=== PATIENT | female | born 1950 | race Caucasian/White ===

== ENCOUNTER 2024-07-23 10:00 | Outpatient (OUT) | payer MEDICARE, OTHER, SELFPAY ==
--- NOTE | 2024-07-23 | CONS_ITS ---
PROCEDURE DATE: 07/23/2024 PROCEDURE: Trigger point injection left gluteus medius. PREOPERATIVE DIAGNOSIS: Pain secondary to myalgia left gluteus medius muscle, left L5 radiculopathy. POSTOPERATIVE DIAGNOSIS: Pain secondary to myalgia left gluteus medius muscle, left L5 radiculopathy. SOLUTION USED FOR INJECTION: 2 mL of 2% lidocaine, 2 mL of 0.25% Marcaine and 10 mg of Kenalog, total of 5 mL, and 5 mL used for the injection. IMMEDIATE COMPLICATIONS: None. PROCEDURE: After informed consent was obtained, patient placed in prone position. Skin overlying the area was prepped with alcohol. A 25 gauge, 1 ?? needle was inserted into the substance of the left gluteus medius muscle and advanced until a twitch response was encountered, at which point we injected 5 mL of solution in divided doses. Patient reports a dramatic reduction in pain symptoms post procedurally. MARIA E
--- NOTE | 2024-07-23 | CONS_ITS ---
CONSULTATION DATE: 07/23/2024 TO: Sharmaine Fletcher D.O. CHIEF COMPLAINT: Includes left sided buttock pain, leg pain. HISTORY OF PRESENT ILLNESS: Review of systems, past medical/surgical history were obtained and documented on the health questionnaire and is available upon request. She is a 74-year-old female who reports having had many years of lower back pain, left leg pain; however, over the last six months, she has had dramatic increase in her pain symptoms, rating it at least 5-7/10, sharp in character, which seems to increase with activities such as standing, walking, prolonged sitting, as well as with transitioning maneuvers. She feels most comfortable in the semi-recumbent position. She denies any change in bowel and bladder habits but reports some progressive tingling and numbness of the lower extremity. She has tried Aleve for at least the last six months, which offered her minimal to no relief. She has undergone activity modification also, which offered her very little relief. She has undergone what appears to be knee injection, which improved her knee pain, but failed to improve her lower back pain. EXAMINATION: Notable for patient having hypoesthesia along the left L5 dermatome, weakness of the left EHL. Straight leg raise is positive at approximately 90 degrees. She has a depressed Achilles reflex. She has no signs consistent with myelopathy involving the lower extremities. She has a fair amount of myofascial spasm involving the lumbar paravertebral muscles, including bilaterally, as well as mainly her left gluteus medius muscle is exquisitely tender. IMPRESSION: Our impression is patient with chronic pain secondary to left L5 radicular process with myalgia and spasm of the left gluteus medius muscle. RECOMMENDATIONS: I have recommended she undergo aquatic therapy, lumbosacral MRI, lumbar spine films. Placed her on baclofen 10 mg pills, half to one pill at bedtime, for her myofascial spasm. I will hold off on adding a membrane stabilizer for the time being. Will consider this after review of her MRI. Of note, status post her left gluteus medius trigger point injection, she reports a dramatic reduction in her pain symptoms; however, she continues to have left sided knee pain. As part of providing excellent, safe, comprehensive care, the following was completed at our patient's visit: 1. A medication reconciliation and review to ensure accurate knowledge of current/active medications, including asking our patients to inform us about any [id number] medications or herbal remedies/nutritional supplements/alternative remedies. 2. A review to specifically ensure our patients have had annual screening for: elevated body mass index (BMI, see intake chart for exact total), tobacco use, screening for depression, and screening for unhealthy alcohol use. When screening is concerning, patients are provided with education and the specific recommendation to discuss the concerning health issue and treatment options with their primary care provider. MARIA E
== END 2024-07-23 10:01 | disposition home or self-care (01) ==
PROVIDERS: PCP Internal Medicine; Visit Provider Anesthesiology Pain Medicine
DX: M54.50 Low back pain, unspecified (principal); M47.26 Other spondylosis with radiculopathy, lumbar region; M62.838 Other muscle spasm; M79.18 Myalgia, other site
CPT/HCPCS: 20552; 72100; J0665; J3301

== ENCOUNTER 2024-07-23 11:28 | Outpatient (OUT) | payer MEDICARE, OTHER, SELFPAY ==
--- NOTE | 2024-07-23 11:47 | XR_ITS ---
The [address] [address] Patient Name: SARAH JIMENEZ MRN: [id number] date: 1950 Sex: F Assigned Patient Location: [facility] Current Patient Location: Accession/Order Number: [id number] Exam Date: 07/23/2024 11:50 Report Date: 07/24/2024 07:44 At the request of: WES FERGUSON Procedure: XR lumbar spine 2-3V EXAMINATION: XR lumbar spine 2-3V HISTORY: Lumbar Radiculopathy, Lumbago COMPARISON: No relevant comparison available. FINDINGS: BONES: Rotatory dextrocurvature centered at the T12 level. Moderate diffuse spondylosis and facet osteoarthropathy DISC SPACES: Moderate multilevel disc space narrowing with endplate sclerosis most significant at L5-S1 PARASPINOUS: Negative. No paraspinous abnormality is seen. OTHER: Vascular calcifications XR/XR lumbar spine 2-3V IMPRESSION: Moderate degenerative change Electronically authenticated by: TL JORDAN Date: 07/24/2024 07:44
== END 2024-07-23 11:29 | disposition home or self-care (01) ==
LOC: RAD 11:30
PROVIDERS: PCP Internal Medicine; Visit Provider Anesthesiology Pain Medicine
DX: M54.50 Low back pain, unspecified (principal); M47.26 Other spondylosis with radiculopathy, lumbar region
CPT/HCPCS: 72100

== ENCOUNTER 2024-08-01 14:26 | Outpatient (OUT) | payer MEDICARE, OTHER, SELFPAY ==
--- NOTE | 2024-08-01 14:36 | MR_ITS ---
[address] [address] Patient Name: SARAH JIMENEZ MRN: [id number] date: 1950 Sex: F Assigned Patient Location: MRI Current Patient Location: MRI Accession/Order Number: [id number] Exam Date: 08/01/2024 14:47 Report Date: 08/02/2024 14:51 At the request of: WES FERGUSON Procedure: MR lumbar spine wo con MRI OF LUMBAR SPINE WITHOUT CONTRAST, 08/01/2024. HISTORY: Chronic low back pain with left leg pain. Radiculopathy. COMPARISON: None. TECHNIQUE: Multiplanar, multisequence MRI imaging of the lumbar spine without contrast. FINDINGS: Alignment normal. No spondylolysis or spondylolisthesis. Signal in the bone marrow spaces is normal. No bone marrow edema or suspicious osseous lesion. L5-S1, severe degenerative disc disease with severe disc space narrowing. Disc osteophyte complex at this level results in mild central canal stenosis. There is severe right lateral recess stenosis. Disc space narrowing and osteophytes result in severe bilateral foraminal narrowing. L4-L5, moderate degenerative disc disease most prominent on the right side of the disc space. Diffuse disc bulge. No central spinal canal stenosis. There is moderate right foraminal narrowing. No foraminal narrowing on the left. L3-L4, severe degenerative disc disease most severe on the left side of the disc space. Disc bulge mildly effaces the thecal sac without spinal stenosis. Disc bulge and osteophyte complex on the left results in moderate left foraminal narrowing. Mild right foraminal narrowing. L2-L3, mild degenerative disc disease. No spinal stenosis. No foraminal narrowing. L1-L2, moderate degenerative disc disease. Diffuse disc bulge. No spinal stenosis or foraminal narrowing. No abnormal signal in the conus medullaris. No paraspinal mass. MR/MR lumbar spine wo con IMPRESSION: 1. No acute compression fracture. 2. Multilevel degenerative disc disease most severe at L5-S1. 3. At L5-S1, a disc osteophyte complex results in mild central canal stenosis with severe right lateral recess stenosis. There is severe bilateral foraminal narrowing. 4. Foraminal narrowing is noted at additional levels as described above. Electronically authenticated by: CORINNE PIÑA Date: 08/02/2024 14:51
--- OUTSIDE RECORDS SUMMARY | 2024-08-01 14:50 | XMS_ITS | CCD ---
Author Organization [facility] Informat ion Partnership [facility] Care Team Providers Care [employer] Name Role Phone JAZMIN ANTONIO Admitting Unavailable JAZMIN ANTONIO Consulting Unavailable JAZMIN ANTONIO Attending Unavailable NIDA SEXTON Primary Care Unavailable TL JORDAN V Consulting Unavailable Carissa Dias Unavailable DO Sharmaine Fletcher Primary Care Provider DO Sharmaine Fletcher Attending Provider NADER Dias Attending Provider MD Jazmin Antonio Attending Provider SHALONDA Alvarado Attending Provider DO Sharmaine Fletcher Primary Care Provider DO Delfino Goncalves Emergency Provider MD Christiano Murillo Attending Provider NADER Dias Attending Provider MD Scott Sellers Attending Provider Zeus Dolan Unavailable MD Scott Sellers Admit Provider Scott Sellers Unavailable SHARMAINE FLETCHER Primary Care Physician DO Sharmaine Fletcher Primary Care Provider MD Zeus Dolan Attending Provider NADER Dias Attending Provider Damian-Warsaw, DO Sharmaine Primary Care Provider [phone] Damian-Warsaw, DO Sharmaine Attending Provider [phone] NADER Dias Attending Provider Damian-Warsaw DO, Sharmaine D Unavailable Alvino URBINA, Dax Lopes Unavailable Zunilda URBINA, Jazmin Barrera Unavailable Scott Sellers MD Unavailable Damian-Warsaw DO, Sharmaine D Primary Care Provider SHALONDA ABRAHAM Attending Unavailab le Damian-Warsaw, DO Sharmaine Primary Care Provider MD Scott Sellers Attending Provider MD Meme Montelongo Emergency Provider DO Marvin Iglesias Admit Provider [phone] DO Amalia Iglesiasopher Attending Provider [phone] MD Julian Diaz Other Provider [phone] MD Kameron Pires Attending Provider ESTELA HANNAH Attending Unavailable GARCIA HERNDON Referring Unavailable DAMIAN-EMERY, SHARMAINE D Attending Unavailab le DAMIAN-EMERY, SHARMAINE D Referring Unavailab le DAMIAN-EMERY, SHARMAINE D Attending Unavailab le DAMIAN-EMERY, SHARMAINE D Referring Unavailab le DAMIAN-EMERY, SHARMAINE D Attending Unavailab le Damian-Warsaw, Sharmaine Primary Care Unavailable Carissa Dias Attending Unavailable Carissa Dias Admitting Unavailable Damian-Warsaw, Sharmaine Primary Care Unavailable Scott Sellers Attending Unavailable Scott Sellers Admitting Unavailable Damian-Warsaw, Sharmaine Primary Care Unavailable Julian Diaz Consulting Unavailable Marvin Iglesias Admitting Unavailabl e Pranay, Kameron Attending Unavailable Sharmaine Fletcher Admitting Unavailable Sharmaine Fletcher Attending Unavailable Sharmaine Fletcher Primary Care Unavailable Medications Current Medications Medication Drug Class(es) Dates Sig (Normalized) Sig (Original) acetaminophen 500 mg oral tablet (9 sources) Start: 12-14-2022 take 1000 mg by mouth twice daily Acetaminophen Active 1000 MG PO Twice daily December 14, 2022 1:00am Start: 12-14-2022 Acetaminophen (Tylenol Ex Str Arthritis Pain) 500 mg Tablet Active 1000 MG PO Twice daily December 14, 2022 12:00am amLODIPine 5 mg oral tablet (20 sources) Dihydropyridine Calcium Channel Giovani Start: 02-08-2021 take 5 mg by mouth once daily Amlodipine Active 5 MG PO Daily February 08, 2021 12:00am aspirin 81 mg chewable tablet (20 sources) Platelet Aggregation Inhibitor, Nonsteroidal Anti-inflammatory Drug Start: 02-08-2021 take 1 tablet by mouth once daily Aspirin (Children's Aspirin) 81 mg Tablet,Chewable Active 81 MG PO Daily February 08, 2021 12:00am take 1 tablet by mouth once gian y Aspirin 81 81 MG 1 tablet Orally Once a day Active atorvastatin 80 mg oral tablet (20 sources) HMG-CoA Reductase Inhibitor Start: 02-08-2021 take 80 mg by mouth once daily in the evening Atorvastatin Active 80 MG PO Every evening February 08, 2021 12:00am cholecalciferol 0.025 mg chewable tablet (9 sources) Vitamin D Start: 12-14-2022 take 1 tablet by mouth once daily Cholecalciferol (Vitamin D3) (Vitamin D3) 25 mcg (1,000 unit) Tablet,Chewable Active 25 MCG PO Daily December 14, 2022 1:00am clopidogrel 75 mg oral tablet (20 sources) [id number] Platelet Inhibitor Start: 05-06-2024 take 75 mg by mouth once daily Clopidogrel Active 75 MG PO Daily 90 90 May 06, 2024 12:00am Start: 12-05-2022 End: 05-04-2024 take 75 mg by mouth once daily Clopidogrel Discontinue d 75 MG PO Daily December 14, 2022 1:00am May 04, 2024 3:56pm Start: 02-18-2021 take 1 tablet by beverley th every twenty-four hours Clopidogrel Bisulfate 75 MG 1 tablet Orally Once a day for 30 day(s) Jan, Not-Taking Plavix Active escitalopram 10 mg oral tablet (20 sources) Serotonin Reuptake Inhibitor Start: 02-07-2021 take 10 mg by mouth once daily Escitalopram Oxalate Active 10 MG PO Daily February 07, 2021 12:00am Start: 12-12-2019 escitalopram O ral, Daily, Refills(s) 0 Start Date: 12/12/19 Status: Ordered estradiol 0.1 mg/ml vaginal cream (13 sources) Estrogen Start: 03-28-2024 estradiol 0.1 mg/g Vag Crm 1 gram, Vaginal, MonFri, 42.5 gram, Refill(s) 6, Apply 1 gram 2x/ week and rub some around the urethra., [employer] #14, 157, cm, 03/28/24 11:07:00 EDT, Height/Length Dosing, 68.6, kg, 03/28/24 11:07:00 EDT, Weight Dosing Start Date: 03/28/24 Status: Ordered Start: 12-13-2021 estradiol 0.1 mg/g Vag Crm 1 gram, Vaginal, MonFri, 42.5 gram, Refill(s) 6, Apply 1 gram 2x/ week and rub some around the urethra., [employer] #14, 157, cm, 12/13/21 10:56:00 EST, Height/Length Dosing, 73.5, kg, 12/13/21 10:56:00 EST, Weight Dosing Start Date: 12/13/21 Status: Ordered estradiol (Estra ce) 0.1 MG/GM vaginal cream Insert 1 g into the vagina 2 (two) times a week. 0 Active Estradiol 0.1 MG /GM Administer as directed Vaginally twice a week on Monday and Monday Active Estradiol 0.1 MG /GM Administer as directed Vaginally twice a week on Monday and Monday Active hydroCHLOROthiazide 25 mg oral tablet (1 source) Thiazide Diuretic Start: 05-06-2024 take 25 mg by mouth once daily Hydrochlorothiazide Active 25 MG PO Daily 60 60 May 06, 2024 12:00am 24 hr metoprolol succinate 100 mg extended release oral tablet (20 sources) beta-Adrenerg ic Giovani Start: 02-07-2021 take 100 mg by mouth once daily Metoprolol Succinate Active 100 MG PO Daily February 07, 2021 12:00am Start: 12-12-2019 take 1 mg by mouth once daily metoprolol 25 mg ER Tab mg tab(s), Oral, Daily, Refills(s) 0 Start Date: 12/12/19 Status: Ordered Misc Natural Products (Osteo Bi-Flex Triple Strength) tablet (1 source) take 1 tablet by mouth once daily Misc Natural Products (Osteo Bi-Flex Triple Strength) tablet Take 1 tablet by mouth 1 (one) time each day at the same time. 0 Active Ofzztdbi-Mgy-Fyjd-Fa-Lut ein (Multivitamin Women 50 Plus) 8 mg iron-400 mcg-300 mcg Tablet (3 sources) Start: 12-14-2022 take 1 tablet by mouth once daily Igtmhlnv-Hki-Iwnr-Fa-Halima tein (Multivitamin Women 50 Plus) 8 mg iron-400 mcg-300 mcg Tablet Active 1 TAB PO Daily December 14, 2022 1:00am Start: 12-14-2022 take 1 tablet by beverley th once daily Uoeccpqh-Inv-Udht-Fa-Lutein (Multivitami n Women 50 Plus) 8 mg iron-400 mcg-300 mcg Tablet Active 1 TAB PO Daily December 14, 2022 12:00am Woegmuhf-Qsr-Jtkn-Fa-Vit K-Lut (Multivitamin Women 50 Plus) 8 mg iron-400 mcg-300 mcg Tablet (6 sources) Start: 12-14-2022 take 1 tablet by mouth once daily Jmuxagwq-Awe-Jkic-Fa-Vit K-Lut (Multivitamin Women 50 Plus) 8 mg iron-400 mcg-300 mcg Tablet Active 1 TAB PO Daily December 14, 2022 1:00am Start: 12-14-2022 take 1 tablet by beverley th once daily Wxylgnge-Wcn-Rygd-Fa-Vit K-Lut (Multivitamin Women 50 Plus) 8 mg iron-400 mcg-300 mcg Tablet Active 1 TAB PO Daily December 14, 2022 12:00am naproxen 500 mg delayed release oral tablet (20 sources) Nonsteroidal Anti-inflammatory Drug Start: 05-12-2023 take 1 tablet by mouth once as needed naproxen (EC Naprosyn) 500 MG EC tablet Indications: Arthritis of left knee 1 tablet Orally once or twice a day as needed for 90 days 180 tablet 3 05/12/2023 Active Start: 02-07-2021 End: 02-08-2021 take 500 mg by mouth once daily Naproxen Discontinued 500 MG PO Daily February 07, 2021 12:00am February 08, 2021 3:41pm Start: 12-12-2019 naproxen Oral, Refills(s) 0 Start Date: 12/12/19 Status: Ordered take 1 tablet by beverley every twelve hours at mealtime as needed Naproxen 500 MG 1 tablet with food or milk as needed Orally every 12 hrs Active potassium bicarbonate 25 meq effervescent oral tablet (20 sources) Start: 02-08-2021 Potassium Bica rb-Citric Acid (Klor-Con/Ef) 25 mEq tablet, effervescent Active 25 MEQ PO Daily 0 February 08, 2021 3:40pm Start: 02-07-2021 End: 02-08-2021 Potassium Bicarb-Citric Acid (Klor-Con/Ef) 25 mEq tablet, effervescent Discontinued 25 MEQ PO Twice daily with meals February 07, 2021 12:00am February 08, 2021 3:41pm potassium chloride 25 meq oral tablet (5 sources) Klor-Con 25 MEQ as directed Orally Active umary (2 sources) Start: 05-04-2024 take 1 tablet by mouth once daily umary Active 1 TAB PO Daily May 04, 2024 12:00am Completed/Discontinued Medications Medication Drug Class(es) Dates Sig (Normalized) Sig (Original) citric acid 128 mg/ml / sodium citrate 98 mg/ml oral solution (5 sources) Calculi Dissolution Agent, Anti-coagulant Start: 07-20-2022 take 1 [tsp_us] by mouth twice daily citric acid-sodium citrate 640 mg-490 mg/5 mL oral solution See Instructions, 300 mL, Refill(s) 6, IRON, called to pharmacy (Rx), Take 1 teaspoon twice daily Start Date: 07/20/22 Status: Ordered Oracit 490-640 M G/5ML 5 mL after meals diluted with 1 to 3 ounces of water or juice Orally Three times a day Active Effer-K 25 mEq oral tablet, effervescent (3 sources) Start: 12-13-2021 take 1 tablet by mouth twice daily Effer-K 25 mEq oral tablet, effervescent 25 mEq = 1 tab(s), Oral, BID, # 60 tab(s), Refills(s) 1, Pharmacy: [id number], 157, cm, 12/13/21 10:56:00 EST, Height/Length Dosing, 73.5, kg, 12/13/21 10:56:00 EST, Weight Dosing Start Date: 12/13/21 Status: Ordered erythromycin 0.005 mg/mg ophthalmic ointment (9 sources) Macrolide, Macrolide Antimicrobial Start: 12-14-2022 End: 12-22-2022 Erythromycin Discontinued 1 APPLIC EYE-LEFT Daily December 14, 2022 1:00am December 22, 2022 11:04am Potassium Bicarb-Citric Acid (Klor-Con/Ef) 25 mEq tablet, effervescent (12 sources) Start: 02-08-2021 End: 03-30-2023 Potassium Bicarb-Citric Acid (Klor-Con/Ef) 25 mEq tablet, effervescent Discontinued 25 MEQ PO Daily 0 February 08, 2021 2:40pm March 30, 2023 11:36am Start: 02-08-2021 End: 03-30-2023 Potassium Bicarb-Citric Acid (Klor-Con/Ef) 25 mEq tablet, effervescent Discontinued 25 MEQ PO Daily 0 February 08, 2021 3:40pm March 30, 2023 12:36pm Start: 02-08-2021 Potassium Bica rb-Citric Acid (Klor-Con/Ef) 25 mEq tablet, effervescent Active 25 MEQ PO Daily 0 February 08, 2021 2:40pm vitamin b12 2.5 mg sublingual tablet (9 sources) Vitamin B12 Start: 12-14-2022 End: 05-04-2024 take 1 tablet by mouth once daily Cyanocobalamin (Vitamin B-12) (Vitamin B-12) 2,500 mcg Tablet, Sublingual Discontinued 2500 MCG PO Daily December 14, 2022 1:00am May 04, 2024 3:57pm Problems Active Problems Problem Classification Problem Date Documented Da te Episodic/Chronic Anxiety disorders (17 sources) Anxiety; Translations: [Anxiety disorder, unspecified] Onset: 09-05-2023 Resolved: 09-05-2023 11-12-2022 Chronic Calculus of urinary tract (15 sources) Calculus of kidney; Translations: [History of calculus of kidney] Onset: 12-10-2020 Episodic Chronic kidney disease (2 sources) Chronic kidney disease stage 3A ; Translations: [Stage 3a chronic kidney disease (HCC) ([facility]/HCC)] Onset: 06-05-2023 12-01-2023 Chronic Chronic kidney disease (1 source) Chronic kidney disease; Translations: [Chronic kidney disease, stage 3a] Onset: 09-18-2023 Conditions associated with dizziness or vertigo (17 sources) Dizziness; Translations: [Dizziness and giddiness] 02-08-2021 Episodic Diabetes mellitus with complications (2 sources) Type 2 diabetes mellitus; Translations: [Type 2 diabetes mellitus with diabetic chronic kidney disease] Onset: 06-05-2023 12-01-2023 Chronic Disorders of lipid metabolism (20 sources) Mixed hyperlipidemia; Translations: [Mixed hyperlipidemia] Onset: 06-05-2023 04-29-2019 Chronic Essential hypertension (11 sources) Essential hypertension; Translations: [Essential (primary) hypertension] Onset: 06-05-2023 12-01-2023 Chronic Genitourinary symptoms and ill-defined conditions (12 sources) Unspecified urinary incontinence; Translations: [Female stress incontinence] Onset: 03-28-2023 Resolved: 09-05-2023 Chronic Genitourinary symptoms and ill-defined conditions (8 sources) Abnormal urinary product; Translations: [Hypocitraturia] Onset: 03-28-2023 Resolved: 09-05-2023 Episodic Headache; including migraine (5 sources) Migraine; Translations: [Migraine, unspecified, not intractable, without status migrainosus] Onset: 09-05-2023 Resolved: 09-05-2023 04-29-2019 Chronic Headache; including migraine (8 sources) Headache disorder; Translations: [Other headache syndrome] Episodic Mood disorders (5 sources) Depressive disorder; Translations: [Dysthymia] Onset: 06-05-2023 04-29-2019 Chronic Occlusion or stenosis of precerebral arteries (20 sources) Occlusion and stenosis of multiple and bilateral cerebral arteries; Translations: [Occlusion and stenosis of bilateral carotid arteries] Onset: 05-31-2022 Resolved: 05-31-2022 Chronic Osteoarthritis (11 sources) Arthritis; Translations: [Arthritis of left knee] Onset: 06-05-2023 04-29-2019 Chronic Other lower respiratory disease (12 sources) Dyspnea; Translations: [Dyspnea, unspecified] 11-12-2022 Episodic Other nervous system disorders (17 sources) Numbness; Translations: [Anesthesia of skin] 02-08-2021 Episodic Other nutritional; endocrine; and metabolic disorders (1 source) Overweight in adulthood with body mass index of 25 or more but less than 30; Translations: [Body mass index (BMI) 28.0-28.9, adult] 12-01-2023 Episodic Other upper respiratory infections (1 source) Viral upper respiratory tract infection; Translations: [Acute upper respiratory infection, unspecified] 12-01-2023 Episodic Poisoning by other medications and drugs (5 sources) Poisoning by vitamin; Translations: [Poisoning by vitamins, accidental (unintentional), initial encounter] Onset: 05-04-2024 05-04-2024 Episodic Residual codes; unclassified (3 sources) Non-smoker; Translations: [Other specified health status] 04-09-2024 Episodic Residual codes; unclassified (3 sources) Other specified health status; Translations: [Other specified conditions influencing health status] 04-09-2024 Episodic Transient cerebral ischemia (20 sources) Transient cerebral ischemia; Translations: [Transient cerebral ischemic attack, unspecified] Onset: 06-05-2023 02-07-2021 Chronic Unclassified (4 sources) Urine finding 03-28-2023 Unclassified (1 source) Occlusion and stenosis of bilateral carotid arteries; Translations: [Occlusion and stenosis of bilateral carotid arteries] Onset: 10-10-2023 Urinary tract infections (7 sources) Chronic cystitis; Translations: [Other chronic cystitis without hematuria] Onset: 03-28-2023 Resolved: 09-05-2023 Chronic Past or Other Problems Problem Classification Problem Date Documented Da te Episodic/Chronic Diabetes mellitus without complication (1 source) Impaired fasting glucose; Translations: [Impaired fasting glucose] Onset: 09-18-2023 Episodic Other nutritional; endocrine; and metabolic disorders (1 source) Obese class I; Translations: [Obesity, unspecified] Onset: 06-05-2023 Resolved: 12-01-2023 12-01-2023 Chronic Results Test Name Value Interpretation Reference Range Facility [facility] echo transthoracic [facility] [place] [address] [place] [address] Echocardiogram Signed Patient: Sarah Jimenez MR#: [id number] 522 : 1950 Acct:[id number] Age/Sex: 74 / F ADM Date: 05/04/24 Loc: Room: [address] [place] [address] Type: ADM INOo Attending Dr: Kameron Pires MD Ordering Provider: Marvin Iglesias DO Date of Service: 05/06/24[facility]: stroke/TIA Copies to: DO Austin Mehta MD Weight: 153 lb Performed By: IVAN Perla BSA: 1.7 m2 BP: 126/77 mmHg HR: 63 Reason For Study: stroke/TIA History: TIA, HTN, HLD, CAD Interpretation Summary The left ventricular size, thickness and function are normal Ejection Fraction = >70%. A variety of Doppler measurements indicate normal left ventricular diastolic function. There is trace tricuspid regurgitation. Procedure/Quality: A two-dimensional transthoracic echocardiogram with color flow, Doppler and injection of contrast agent Definity was performed. The study was technically good in quality. Left Ventricle: The left ventricular size, thickness and function are normal. Upper septal hypertrophy (sigmoid septum), normal variant. Ejection Fraction = >70%. A variety of Doppler measurements indicate normal left ventricular diastolic function. No left ventricular thrombus or mass is seen. Left Atrium: The left atrium appears normal in size. The atrial septum appears normal. Right Atrium: The right atrium appears normal in size. Right Ventricle: The right ventricular size, thickness and function are normal. Aortic Valve: The aortic valve is normal in structure and function. Mitral Valve: The mitral valve is normal in structure and function. Tricuspid Valve: The tricuspid valve is normal. There is trace tricuspid regurgitation. Pulmonic Valve: The pulmonic valve is not well visualized. Arteries: The aortic root is normal size. The aortic arch was visualized and no abnormalities were seen. Pericardium/Pleura: No pericardial effusion seen. There is no pleural effusion. IVC/Hepatic Veins: The inferior vena cava is normal in size, with a normal collapsibility index. Measurements with Normals IVSd: 1.3 cm (0.7-1.1 cm)LVIDd: 3.7 cm (3.7-5.4 cm) LVPWd: 1.0 cm (0.7-1.1 cm)LVIDs: 2.5 cm (2.3-3.6 cm) LA dimension: 3.3 cm (2.3-4.0 cm)Ao root diam: 2.7 cm(2.0-3.6 cm) asc Aorta Diam: 3.0 cm(2.1-3.4cm) Doppler with Normals RVSP(TR): 28.6 mmHg (18-35mmHg) LV V1 max: 114.0 cm/sec (0.7-1.7m/s)MV E max kevin: 62.1 cm/sec(0.8-1.3m/s) MV A max kevin: 87.8 cm/sec(0.0-0.0m/s) MV E/A: 0.71 (<1.5) MMode/2D Measurements Calculations RVDd: 3.1 cm FS: 32.4 % Ao root area: LVOT diam: 1.8 cm TAPSE: 2.1 cm EDV(Teich): 5.7 cm2 LVOT area: 2.4 cm2 RV S Kevin: 58.1 ml 13.7 cm/sec ESV(Teich): 22.3 ml EF(Teich): 61.6 % __ LVLd ap4: 6.3 cm SV(MOD-sp4): LAV(MOD-sp4): LA A2 area: 15.3 cm2 EDV(MOD-sp4): 42.4 ml 16.7 ml 51.7 ml LAV(MOD-sp2): LA A4 area: 10.3 cm2 LVLs ap4: 4.5 cm 40.1 ml LA length (vol): ESV(MOD-sp4): 5.1 cm 9.3 ml LA vol: 26.5 ml EF(MOD-sp4): 82.1 % LA vol index: 15.5 ml/m2 Doppler Measurements Calculations MV dec time: E/E' lat: 8.3 MV dec slope: Ao V2 max: 0.38 sec E/E' med: 10.0 130.0 cm/sec 163.0 cm/sec2 Ao max P.8 mmHg Ao mean P.0 mmHg Ao V2 mean: 94.9 cm/sec Ao V2 VTI: 27.9 cm MELO(I,D): 2.3 cm2 MELO(V,D): 2.1 cm2 __ LV V1 max PG: TV max PG: TR max kevin: 5.2 mmHg 24.0 mmHg 243.0 cm/sec LV V1 mean PG: TR max P.6 mmHg 3.0 mmHg RAP systole: 5.0 mmHg LV V1 mean: 84.9 cm/sec LV V1 VTI: 26.1 cm Transcribed By: SCV Performed At: 05/06/24 1500 Signed By: Austin Bermudez MD 05/06/24 1728 Normal [facility] MR head/brain wo conon 05-06 MR head/[place] [address] MRI Report Signed Patient: Sarah Jimenez MR#: [id number] 522 : 1950 Acct:[id number] Age/Sex: 74 / F ADM Date: 05/04/24 Loc: 3T Room: [address] [place] [address] Type: ADM INOo Attending Dr: Kameron Pires MD Copies to: MD Marvin Willett DO Ordering Provider: Marvin Iglesias DO Date of Service: 05/06/24 MR/MR head/brain wo con: right hand weakness and numbness MR head/brain wo con 05/04/2024 9:13 PM SIGN AND SYMPTOMS: Right arm numbness and tingling PROTOCOL: Multiplanar multisequence MR images of the brain were obtained without IV contrast COMPARISON: 05/04/2024 FINDINGS: Extra axial spaces: There is diffuse age-related cortical atrophy. Hemorrhage: None. Ventricular system: Within normal limits. Basal cisterns: Within normal limits and not effaced. Cerebral parenchyma: Periventricular and subcortical white matter T2 and FLAIR hyperintense foci are noted consistent with chronic microvascular ischemic change. Midline shift: None.. Cerebellum: Within normal limits. Brainstem: Within normal limits. OTHER: Calvarium: Normal marrow signal. Vascular system: Satisfactory flow voids within the anterior and posterior circulation. Visualized Paranasal sinuses: Within normal limits. Visualized Orbits: Within normal limits. Visualized upper cervical spine: Within normal limits. Sella and skull base: Within normal limits. MR/MR head/brain wo con IMPRESSION: No acute intracranial pathology or abnormal postcontrast enhancement. Chronic age-related neurodegenerative changes are noted as above. Impression dictated by: Ata Samuel M.D.05/06/2024 2:52 PM Dictation Location: [place] [address] Transcribed By: [facility] 05/06/24 1452 Dictated By: Ata Samuel II, MD 05/06/24 1449 Signed By: 05/06/24 1452 Normal [facility] A1C with Estimated Average G yvan 05-05-2024 Glucose [Mass/Vol] 137 mg/dL Normal [facility] Comment on above: Result Comment: PERF ORMED BY: [place] [id number] PATHOLOGIST [employer] TECHNICAL OFFICER ANA LAURA MCCRARY M.D. Performed By: #### H S TROP, CBC, CK, PTT, PT, CMP #### [facility] [address] [place] [address] Automated basophil %Ordered By: Marvin Iglesias on 05-05-2024 Basophils/100 WBC (Bld) 0.8 % Normal . [facility] Comment on above: Performed By: #### H S TROP, CBC, CK, PTT, PT, CMP #### [facility] [address] [place] [address] [place] Automated basophil countOrde red By: Marvin Iglesias on 05-05-2024 Basophils (Bld) [#/Vol] 0.1 10*3/uL Normal 0.0-0.2 [facility] Comment on above: Result Comment: PERF ORMED BY: [place] [id number] PATHOLOGIST [employer] TECHNICAL OFFICER ANA LAURA MCCRARY M.D. Performed By: #### H S TROP, CBC, CK, PTT, PT, CMP #### [address] Automated blood monocyte cou ntOrdered By: Marvin Iglesias on 05-05-2024 Monocytes (Bld) [#/Vol] 0.8 10*3/uL Normal 0.0-0.8 [facility] Comment on above: Performed By: #### H S TROP, CBC, CK, PTT, PT, CMP #### [address] Automated eosinophil %Ordere d By: Marvin Iglesias on 05-05-2024 Eosinophils/100 WBC (Bld) 1.4 % Normal . [facility] Comment on above: Performed By: #### H S TROP, CBC, CK, PTT, PT, CMP #### [address] Automated eosinophil countOr dered By: Marvin Iglesias on 05-05-2024 Eosinophils (Bld) [#/Vol] 0.2 10*3/uL Normal 0.0-0.45 [facility] Comment on above: Performed By: #### H S TROP, CBC, CK, PTT, PT, CMP #### [address] Automated monocyte %Ordered By: Marvin Iglesias on 05-05-2024 Monocytes/100 WBC (Bld) 5.9 % Normal . [facility] Comment on above: Performed By: #### H S TROP, CBC, CK, PTT, PT, CMP #### [address] Automated neutrophil %Ordere d By: Marvin Iglesias on 05-05-2024 Neutrophils/100 WBC (Bld) 72.4 % Normal . [facility] Comment on above: Performed By: #### H S TROP, CBC, CK, PTT, PT, CMP #### [facility] [address] Basic Metabolic Panelon 04-22 Creatinine Clr Calc Pharmacy 54.46 Normal [facility] Comment on above: Order Comment: FASTI NG Y Performed By: #### H S TROP, CBC, CK, PTT, PT, CMP #### [place] [address] [place] GFR/1.73 sq M.predicted MDRD (S/P/Bld) [Vol rate/Area] mL/min/{1.73_m2} Normal [facility] Comment on above: Order Comment: FASTI NG Y Performed By: #### H S TROP, CBC, CK, PTT, PT, CMP #### [place] [address] [place] Calcium [Mass/volume] in Ser um or PlasmaOrdered By: Marvin Iglesias on 05-05-2024 Calcium [Mass/Vol] 8.6 mg/dL Normal 8.6-10.3 [facility] Comment on above: Order Comment: FASTI NG Y Performed By: #### H S TROP, CBC, CK, PTT, PT, CMP #### [place] [address] [place] Carbon dioxide, total [Moles /volume] in Serum or PlasmaOrdered By: Marvin Iglesias on 05-05-2024 CO2 [Moles/Vol] 27.8 mmol/L Normal 21.0-31.0 [facility] Comment on above: Order Comment: FASTI NG Y Performed By: #### H S TROP, CBC, CK, PTT, PT, CMP #### [place] [address] [place] Chloride [Moles/volume] in S carlos or PlasmaOrdered By: Marvin Iglesias on 05-05-2024 Chloride [Moles/Vol] 104 mmol/L Normal 98-107 [facility] Comment on above: Order Comment: FASTI NG Y Performed By: #### H S TROP, CBC, CK, PTT, PT, CMP #### [facility] [address] Cholesterol [Mass/volume] in Serum or PlasmaOrdered By: Marvin Iglesias on 05-05-2024 Cholesterol [Mass/Vol] 162 mg/dL Normal 140-200 [facility] Comment on above: Chol less than 200 m g/dl low riskChol 201-239 mg/dl borderline riskChol 240 mg/dl and greater high risk Order Comment: FASTI NG Y Result Comment: Chol less than 200 mg/dl low risk Chol 201-239 mg/dl borderline risk Chol 240 mg/dl and greater high risk Performed By: #### H S TROP, CBC, CK, PTT, PT, CMP #### [facility] [address] Cholesterol in LDL Calc [Mas s/Vol]Ordered By: Marvin Iglesias on 05-05-2024 Cholesterol in LDL [Mass/Vol] 64 mg/dL 0-100 [facility] Comment on above: LDL ATP III CLASSIFI CATIONLDL less than 100 mg/dL OptimalLDL 100-129 mg/dL Near or above optimalLDL 130-159 mg/dL Borderline highLDL 160-189 mg/dL HighLDL greater than 189 mg/dL Very high Cholesterol in VLDL Calc [Ma ss/Vol]Ordered By: Marvin Iglesias on 05-05-2024 Cholesterol in VLDL [Mass/Vol] 33 mg/dL [facility] Complete Blood Count Auto Di ffon 05-05-2024 Mean Corpuscular HGB Conc 34.1 g/dL Normal 32.0-35.0 [facility] Comment on above: Performed By: #### H S TROP, CBC, CK, PTT, PT, CMP #### [facility] [address] NRBC% 0.0 /100{WBC} Normal 0-0.5 [facility] Comment on above: Performed By: #### H S TROP, CBC, CK, PTT, PT, CMP #### [facility] [address] Creatinine [Mass/volume] in Serum or PlasmaOrdered By: Marvin Iglesias on 05-05-2024 Creatinine [Mass/Vol] 0.86 mg/dL Normal 0.60-1.20 [facility] Comment on above: Order Comment: FASTI NG Y Performed By: #### H S TROP, CBC, CK, PTT, PT, CMP #### [facility] [address] Erythrocyte distribution wid th [Ratio] by Automated countOrdered By: Marvin Iglesias on 05-05-2024 Erythrocyte distribution width (RBC) [Ratio] 12.9 % Normal 11.9-15.3 [facility] Comment on above: Performed By: #### H S TROP, CBC, CK, PTT, PT, CMP #### [facility] [address] Erythrocytes [#/volume] in B lood by Automated countOrdered By: Marvin Iglesias on 05-05-2024 RBC (Bld) [#/Vol] 4.45 10*6/uL Normal 3.60-5.00 [facility] Comment on above: Performed By: #### H S TROP, CBC, CK, PTT, PT, CMP #### [facility] [address] Glucose [Mass/volume] in Ser um or PlasmaOrdered By: Marvin Iglesias on 05-05-2024 Glucose [Mass/Vol] 95 mg/dL Normal 70-100 [facility] Comment on above: ADA recommended refe rence rangeRandom Glucose Reference Range is dependent on time and content of last meal. Glucose of more than 200 mg/dL in a nonstressed, ambulatory subject supports the diagnosis of Diabetes Mellitus. Order Comment: FASTI NG Y Result Comment: [place] om Glucose Reference Range is dependent on time and content of last meal. Glucose of more than 200 mg/dL in a nonstressed, ambulatory subject supports the diagnosis of Diabetes Mellitus. ADA recommended reference range Performed By: #### H S TROP, CBC, CK, PTT, PT, CMP #### [address] Glucose mean value [Mass/vol ume] in Blood Estimated from glycated hemoglobinOrdered By: Marvin Iglesias on 05-05-2024 Average glucose Estimated from glycated hemoglobin (Bld) [Mass/Vol] 137 mg/dL [facility] Hematocrit [Volume Fraction] of Blood by Automated countOrdered By: Marvin Iglesias on 05-05-2024 Hematocrit (Bld) [Volume fraction] 42.0 % Normal 34.0-46.4 [facility] Comment on above: Performed By: #### H S TROP, CBC, CK, PTT, PT, CMP #### [address] Hemoglobin A1c percentageOrd ered By: Marvin Iglesias on 05-05-2024 HbA1c (Bld) [Mass fraction] 6.4 % High 4.3-5.6 [facility] Comment on above: Increased risk for d iabetes: 5.7 - 6.4diabetes: >6.4glycemic control for adults with diabetes: <7.0 Result Comment: Incr eased risk for diabetes: 5.7 - 6.4 diabetes: >6.4 glycemic control for adults with diabetes: <7.0 Performed By: #### H S TROP, CBC, CK, PTT, PT, CMP #### [facility] [address] [place] [address] Hemoglobin [Mass/volume] in BloodOrdered By: Marvin Iglesias on 05-05-2024 Hemoglobin (Bld) [Mass/Vol] 14.3 g/dL Normal 11.8-15.4 [facility] Comment on above: Performed By: #### H S TROP, CBC, CK, PTT, PT, CMP #### [address] Leukocytes [#/volume] correc alondra for nucleated erythrocytes in Blood by Automated counOrdered By: Marvin Iglesisa on 05-05-2024 WBC corrected for nucl RBC Auto (Bld) [#/Vol] 13.7 10*3/uL High 3.8-11.6 [facility] Leukocytes [#/volume] in Blo od by Automated countOrdered By: Marvin Iglesias on 05-05-2024 WBC (Bld) [#/Vol] 13.7 10*3/uL High 3.8-11.6 [facility] Comment on above: Performed By: #### H S TROP, CBC, CK, PTT, PT, CMP #### [facility] [address] Lipid Panelon 05-05-2024 LDL Cholesterol,Calculated 64 mg/dL Normal 0-100 [facility] Comment on above: Order Comment: ELAINE Laughlin Result Comment: LDL ATP III CLASSIFICATION LDL less than 100 mg/dL Optimal LDL 100-129 mg/dL Near or above optimal LDL 130-159 mg/dL Borderline high LDL 160-189 mg/dL High LDL greater than 189 mg/dL Very high Performed By: #### H S TROP, CBC, CK, PTT, PT, CMP #### [facility] [address] Triglyceride w/Reflex 165 mg/dL High 0-149 [facility] Comment on above: Order Comment: ELAINE Laughlin Result Comment: TRIG ATP III CLASSIFICATION TRIG less than 150 mg/dL Normal TRIG 150-199 mg/dL Borderline high TRIG 200-500 mg/dL High TRIG greater than 500 mg/dL Very high Standard traceable to the Center for Disease Conrtrol and Prevention (CDC) test method. Performed By: #### H S TROP, CBC, CK, PTT, PT, CMP #### [facility] [address] VLDL CHOLESTEROL 33 mg/dL Normal [facility] Comment on above: Order Comment: ELAINE Laughlin Performed By: #### H S TROP, CBC, CK, PTT, PT, CMP #### [facility] [address] [place] [address] [place] Lymphocytes [#/volume] in Bl ood by Automated countOrdered By: Marvin Iglesias on 07-14-2024 Lymphocytes (Bld) [#/Vol] 2.7 10*3/uL Normal 1.00-4.8 [facility] Comment on above: Performed By: #### H S TROP, CBC, CK, PTT, PT, CMP #### [address] Lymphocytes/100 leukocytes i n Blood by Automated countOrdered By: Marvin Iglesias on 05-05-2024 Lymphocytes/100 WBC (Bld) 19.5 % Normal . [facility] Comment on above: Performed By: #### H S TROP, CBC, CK, PTT, PT, CMP #### [address] MCH [Entitic mass] by Automa alondra countOrdered By: Marvin Iglesias on 05-05-2024 MCH (RBC) [Entitic mass] 32.2 pg Normal 24.7-34.3 [facility] Comment on above: Performed By: #### H S TROP, CBC, CK, PTT, PT, CMP #### [address] MCHC Auto (RBC) [Mass/Vol]Or dered By: Marvin Iglesias on 05-05-2024 MCHC (RBC) [Mass/Vol] 34.1 g/dL 32.0-35.0 [facility] MCV [Entitic volume] by Auto mated countOrdered By: Marvin Iglesias on 05-05-2024 MCV (RBC) [Entitic vol] 94.3 fL Normal 80-100 [facility] Comment on above: Performed By: #### H S TROP, CBC, CK, PTT, PT, CMP #### [facility] [address] [place] [address] Neutrophils [#/volume] in Bl ood by Automated countOrdered By: Marvin Iglesias on 05-05-2024 Neutrophils (Bld) [#/Vol] 9.9 10*3/uL High 1.8-7.7 [facility] Comment on above: Performed By: #### H S TROP, CBC, CK, PTT, PT, CMP #### [facility] [address] No Panel InformationOrdered By: Marvin Iglesias on 05-05-2024 Estimated GFR (CKD-EPI) > 60.0 mL/Min [facility] Creatinine Clearance (Chem 54.46 [facility] Nucleated erythrocytes [Pres ence] in Blood by Automated countOrdered By: Marvin Iglesias on 05-05-2024 Nucleated RBC Auto Ql (Bld) 0.0 /100{WBC} 0-0.5 [facility] Platelet mean volume [Entiti c volume] in Blood by Automated countOrdered By: Marvin Iglesias on 05-05-2024 Platelet mean volume (Bld) [Entitic vol] 8.4 fL Normal 6.3-10.7 [facility] Comment on above: Performed By: #### H S TROP, CBC, CK, PTT, PT, CMP #### [facility] [address] [place] [address] Platelets [#/volume] in Bloo d by Automated countOrdered By: Marvin Iglesias on 05-05-2024 Platelets (Bld) [#/Vol] 221 10*3/uL Normal 150-450 [facility] Comment on above: Performed By: #### H S TROP, CBC, CK, PTT, PT, CMP #### [facility] [address] [place] [address] Potassium [Moles/volume] in Serum or PlasmaOrdered By: Marvin Iglesias on 05-05-2024 Potassium [Moles/Vol] 4.0 mmol/L Normal 3.5-5.1 [facility] Comment on above: Order Comment: FASTI NG Y Performed By: #### H S TROP, CBC, CK, PTT, PT, CMP #### [address] Serum or plasma anion gap de terminationOrdered By: Marvin Iglesias on 05-05-2024 Anion gap [Moles/Vol] 11.2 mmol/L Normal 6.0-15.0 [facility] Comment on above: Order Comment: FASTI NG Y Performed By: #### H S TROP, CBC, CK, PTT, PT, CMP #### [facility] [address] Serum or plasma high density lipoprotein (HDL) cholesterol measurementOrdered By: Marvin Iglesias on 05-05-2024 Cholesterol in HDL [Mass/Vol] 65 mg/dL Normal 23-92 [facility] Comment on above: HDL CHOL ATP-III CLA SSIFICATION Cardiovascular RiskHDL > or equal to 60 mg/dL LOWHDL < 40 mg/dL HIGH Order Comment: FASTI NG Y Result Comment: HDL CHOL ATP-III CLASSIFICATION Cardiovascular Risk HDL > or equal to 60 mg/dL LOW HDL < 40 mg/dL HIGH Performed By: #### H S TROP, CBC, CK, PTT, PT, CMP #### [address] Serum or plasma total choles terol/high density lipoprotein (HDL) cholesterol mass ratOrdered By: Marvin Iglesias on 05-05-2024 Cholesterol.total/Chol esterol in HDL [Mass ratio] 2.5 {ratio} Normal <5.0 [facility] Comment on above: Order Comment: FASTI NG Y Result Comment: PERF ORMED BY: [place] [address] PATHOLOGIST [employer] TECHNICAL OFFICER ANA LAURA MCCRARY M.D. Performed By: #### H S TROP, CBC, CK, PTT, PT, CMP #### [address] Sodium [Moles/volume] in Ser um or PlasmaOrdered By: Marvin Iglesias on 05-05-2024 Sodium [Moles/Vol] 139 mmol/L Normal 136-145 [facility] Comment on above: Order Comment: FASTI NG Y Performed By: #### H S TROP, CBC, CK, PTT, PT, CMP #### [facility] [address] Triglyceride [Mass/volume] i n Serum or PlasmaOrdered By: Marvin Iglesias on 05-05-2024 Triglyceride [Mass/Vol] 165 mg/dL High 0-149 [facility] Comment on above: TRIG ATP III CLASSIF ICATIONTRIG less than 150 mg/dL NormalTRIG 150-199 mg/dL Borderline highTRIG 200-500 mg/dL High TRIG greater than 500 mg/dL Very highStandard traceable to the Center for Disease Conrtrol and Prevention (CDC) test method. Urea nitrogen [Mass/volume] in Serum or PlasmaOrdered By: Marvin Iglesias on 05-05-2024 Urea nitrogen [Mass/Vol] 19 mg/dL Normal 7-25 [facility] Comment on above: Order Comment: ELAINE Laughlin Performed By: #### H S TROP, CBC, CK, PTT, PT, CMP #### [facility] [address] [place] [address] [place] Activated partial thrombopla stin time (aPTT) in platelet poor plasma by coagulation aOrdered By: Meme Montelongo on 05-04-2024 aPTT Coag (PPP) [Time] 25.5 s 25.1-36.5 [facility] Comment on above: A hematocrit value g reater than 55% may lead to inaccurate results in coagulation testing. Patients having hematocrit values >55% require a special collection tube for coagulation studies. Please contact the laboratory at [phone] for redraw instructions. Alanine aminotransferase [En zymatic activity/volume] in Serum or PlasmaOrdered By: Meme Montelongo on 05-04-2024 ALT [Catalytic activity/Vol] 53 U/L High 7-52 [facility] Comment on above: Performed By: #### H S TROP, CBC, CK, PTT, PT, CMP #### [facility] [address] [place] [address] [place] Albumin [Mass/volume] in Ser um or Plasma by Bromocresol green (BCG) dye binding methoOrdered By: Meme Montelongo on 05-04-2024 Albumin BCG dye [Mass/Vol] 4.2 g/dL 3.5-5.7 [facility] Alkaline phosphatase [Enzyma tic activity/volume] in Serum or PlasmaOrdered By: Meme Montelongo on 05-04-2024 ALP [Catalytic activity/Vol] 61 U/L Normal 34-104 [facility] Comment on above: Performed By: #### H S TROP, CBC, CK, PTT, PT, CMP #### [facility] [address] Aspartate aminotransferase [ Enzymatic activity/volume] in Serum or PlasmaOrdered By: Meme Montelongo on 05-04-2024 AST [Catalytic activity/Vol] 35 U/L Normal 13-39 [facility] Comment on above: Performed By: #### H S TROP, CBC, CK, PTT, PT, CMP #### [address] Automated basophil %Ordered By: Meme Montelongo on 05-04-2024 Basophils/100 WBC (Bld) 0.9 % Normal . [facility] Comment on above: Performed By: #### H S TROP, CBC, CK, PTT, PT, CMP #### [address] Automated basophil countOrde red By: Meme Montelongo on 05-04-2024 Basophils (Bld) [#/Vol] 0.1 10*3/uL Normal 0.0-0.2 [facility] Comment on above: Result Comment: PERF ORMED BY: [place] [address] PATHOLOGIST [employer] TECHNICAL OFFICER ANA LAURA MCCRARY M.D. Performed By: #### H S TROP, CBC, CK, PTT, PT, CMP #### [address] Automated blood monocyte cou ntOrdered By: Meme Montelongo on 05-04-2024 Monocytes (Bld) [#/Vol] 1.2 10*3/uL High 0.0-0.8 [facility] Comment on above: Performed By: #### H S TROP, CBC, CK, PTT, PT, CMP #### [address] Automated eosinophil %Ordere d By: Meme Montelongo on 05-04-2024 Eosinophils/100 WBC (Bld) 1.9 % Normal . [facility] Comment on above: Performed By: #### H S TROP, CBC, CK, PTT, PT, CMP #### [address] Automated eosinophil countOr dered By: Meme Montelongo on 05-04-2024 Eosinophils (Bld) [#/Vol] 0.3 10*3/uL Normal 0.0-0.45 [facility] Comment on above: Performed By: #### H S TROP, CBC, CK, PTT, PT, CMP #### [address] Automated monocyte %Ordered By: Meme Montelongo on 05-04-2024 Monocytes/100 WBC (Bld) 7.6 % Normal . [facility] Comment on above: Performed By: #### H S TROP, CBC, CK, PTT, PT, CMP #### [address] Automated neutrophil %Ordere d By: Meme Montelongo on 05-04-2024 Neutrophils/100 WBC (Bld) 76.3 % Normal . [facility] Comment on above: Performed By: #### H S TROP, CBC, CK, PTT, PT, CMP #### [address] Bilirubin Test strip Ql (U)O rdered By: Meme Montelongo on 05-04-2024 Bilirubin Ql (U) Negative Negative [facility] Bilirubin.total [Mass/volume ] in Serum or PlasmaOrdered By: Meme Montelongo on 05-04-2024 Bilirubin [Mass/Vol] 0.7 mg/dL Normal 0.3-1.0 [facility] Comment on above: Performed By: #### H S TROP, CBC, CK, PTT, PT, CMP #### [address] Blood Cultureon 05-04-2024 Bacteria identified Cx Nom (Bld) NO GROWTH 5 DAYS PERFORMED BY: [place] [address] PATHOLOGIST [employer] TECHNICAL OFFICER ANA LAURA MCCRARY M.D. Normal [facility] Comment on above: Performed By: #### H S TROP, CBC, CK, PTT, PT, CMP #### [facility] [address] [place] [address] Blood carbon dioxide, total measurement by calculation (moles/volume)Ordered By: Meme Montelongo on 05-04-2024 CO2 Calc (Bld) [Moles/Vol] 28 mmol/L 23- [facility] Blood hemoglobin measurement by calculation (mass/volume)Ordered By: Meme Montelongo on 05-04-2024 Hemoglobin (Bld) [Mass/Vol] 16.0 g/dL Normal 12.0-17.0 [facility] Comment on above: Performed By: #### E RBMP #### [address] Point of Care testing , Blood urea nitrogen (BUN) me asurement in whole blood (mass/volume)Ordered By: Meme Montelongo on 05-04-2024 Urea nitrogen [Mass/Vol] 27 mg/dL High 8- [facility] Comment on above: Performed By: #### E RBMP #### [facility] [address] [place] [address] Point of Care testing , COVID CepheidOrdered By: Gael Montelongo on 05-04-2024 SARS-CoV-2 (COVID-19) Ab IA Ql Negative Negative [facility] Comment on above: This is a duplicate Cepheid Xpert Xpress CoV-2/Flu/RSV Plus RNA by RT-PCR result to be used for statistical tracking purpose only. SARS-CoV-2 (COVID-19) RNA COBY+probe Ql (Unsp spec) [facility] COVID-19 / Flu A/B / RSV PCR on 05-04-2024 SARS-CoV-2 (COVID-19) RNA COBY+probe Ql (Unsp spec) COVID-19 Cepheid Result Negative for SARS-CoV-2 RNA by RT-PCR Flu A Cepheid Result Negative for Flu A RNA by RT-PCR Flu B Cepheid Result Negative for Flu B RNA by RT-PCR RSV Cepheid Result Negative for RSV RNA by RT-PCR COVID19 Blank Space -- Reference: Negative COVID19 Blank Space -- Cepheid Disclaimer The Cepheid Xpert Xpress CoV-2/Flu/RSV Plus has Cepheid Disclaimer not been FDA cleared or approved; this test has Cepheid Disclaimer been authorized by FDA under an EUA for use by Cepheid Disclaimer authorized laboratories; this test has been Cepheid Disclaimer authorized only for the simultaneous qualitative Cepheid Disclaimer detection and differentiation of nucleic acids from Cepheid Disclaimer SARS-CoV-2, influenza A, influenza B, and Cepheid Disclaimer respiratory syncytial virus (RSV), and not for any Cepheid Disclaimer other viruses or pathogens; and this test is only Cepheid Disclaimer authorized for the duration of the declaration that Cepheid Disclaimer circumstances exist justifying the authorization of Cepheid Disclaimer emergency use of in vitro diagnostic tests for Cepheid Disclaimer detection and/or diagnosis of COVID-19 under Cepheid Disclaimer Section 564(b)(1) of the Act, 21 U.S.C. 360bbb- Cepheid Disclaimer 3(b)(1), unless the authorization is terminated or Cepheid Disclaimer revoked sooner. PERFORMED BY: [place] [address] PATHOLOGIST [employer] TECHNICAL OFFICER ANA LAURA MCCRARY M.D. Normal [facility] Comment on above: Performed By: #### H S TROP, CBC, CK, PTT, PT, CMP #### [facility] [address] angio neckon 05-04-2024 CT angio neck [facility] [place] [address] [place] [address] CT Scan Report Signed Patient: Sarah Jimenez MR#: [id number] 522 : 1950 Acct:[id number] Age/Sex: 74 / F ADM Date: 05/04/24 Loc: ER Room: Type: [facility] ER Attending Dr: Copies to: Meme Montelongo MD Ordering Provider: Meme Montelongo MD Date of Service: 05/04/24 CT/CT angio neck: R arm numb ([id number]) CT/CT angio head: R arm numb CT angio head, CT angio neck 05/04/2024 4:09 PM SIGNS AND SYMPTOMS: Right arm heaviness, dizziness and weakness CONTRAST: 90 mL of intravenous [id number] TECHNIQUE: Multi-detector CT angiography axial slices of the head and neck were obtained during intravenous administration of IV contrast material. Sagittal, coronal, and 3-D reconstructions were performed and viewed on a separate workstation. CT was performed with one or more of the following dose reduction techniques: Automated exposure control, adjustment of the mA and/or kV according to patient size, or use of iterative reconstruction technique. Stenoses were measured using the NASCET criteria. COMPARISON: None. FINDINGS: CTA HEAD: The superior cerebellar arteries, posterior inferior cerebellar arteries, and the basilar artery are within normal limits. The posterior cerebral arteries are unremarkable. Calcified plaque is noted at the left ICA terminus contributing to moderate stenosis. Calcified plaque is noted in the intracranial segments of the internal carotid arteries with mild multifocal narrowing. There are normal anterior and middle cerebral arteries. Anterior communicating artery is patent. Posterior communicating arteries are present. The deep venous system and dural venous systems appear to be patent. No bony abnormalities are appreciated. CTA NECK: There is a normal three-vessel arch configuration. There is calcified plaque in the aortic arch and origins of the great vessels without significant narrowing.. The subclavian arteries are within normal limits. The vertebral arteries arise from the subclavian arteries. Calcified plaque contributes to moderate to severe stenosis of the origin of the right vertebral artery. Calcified plaque is noted in the distal V1 segment of the left vertebral artery with mild stenosis. The vertebral arteries are otherwise normal in course and caliber up to the skull base. There is evidence of prior stenting of the proximal left internal carotid artery and carotid bulb without significant stenosis. Calcified plaque is noted at the right carotid bifurcation with approximately 50% narrowing of the proximal right internal carotid artery. Visualized lung parenchyma is clear. Degenerative changes are present in the cervical spine. No acute bony abnormalities are identified. The paraspinous soft tissues are within normal limits. CT/CT angio head IMPRESSION: There is evidence of prior stenting of the proximal left internal carotid artery and carotid bulb without significant stenosis. Calcified plaque is noted at the right carotid bifurcation with approximately 50% narrowing of the proximal right internal carotid artery. Calcified plaque contributes to significant stenosis of the origin of the right vertebral artery. Calcified plaque is noted at the left ICA terminus contributing to at least moderate narrowing. No evidence of focal stenosis, aneurysmal dilatation, dissection or occlusion. Impression dictated by: Ata Samuel M.D.05/04/2024 4:33 PM Dictation Location: [place] [address] Transcribed By: YADIRA 05/04/24 1633 Dictated By: Ata Samuel II, MD 05/04/24 1626 Signed By: 05/04/24 1633 Normal [facility] CT biopsyOrdered By: Meme Montelongo on 05-04-2024 Hematocrit (Bld) [Volume fraction] 47.0 % Normal 38.0-51.0 [facility] Comment on above: Performed By: #### E RBMP #### [address] Point of Care testing , CT head stroke alert wo cono n 05-04-2024 CT head stroke alert wo con [facility] [place] [address] [place] [address] CT Scan Report Signed Patient: Sarah Jimenez MR#: [id number] 522 : 1950 Acct:[id number] Age/Sex: 74 / F ADM Date: 05/04/24 Loc: ER Room: Type: [facility] ER Attending Dr: Copies to: Meme Montelongo MD Ordering Provider: Meme Montelongo MD Date of Service: 05/04/24 CT/CT head stroke alert wo con: stroke CT head stroke alert wo con 05/04/2024 4:21 PM SIGNS AND SYMPTOMS: Right upper extremity heaviness TECHNIQUE:Multi-detector CT axial slices of the brain were obtained without IV contrast. CT was performed with one or more of the following dose reduction techniques: Automated exposure control, adjustment of the mA and/or kV according to patient size, or use of iterative reconstruction technique. COMPARISON: 06/22/2022 FINDINGS: There is no shift of the midline structures, acute intracranial bleeding, mass effects, or evidence of acute ischemia. Atherosclerotic changes are present in the intracranial segments of the internal carotid arteries and V4 segments of the vertebral arteries. There is mild age-related cortical atrophy. There is mild periventricular white matter hypoattenuation. The ventricular system is normal in size. The brainstem and the cerebellum are unremarkable. The visualized intraorbital contents, the visualized paranasal sinuses, and the infratemporal soft tissues show no acute abnormality. The osseous structures in the skull base and the calvarium show no abnormality. CT/CT head stroke alert wo con IMPRESSION: No acute intracranial pathology. 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 Findings were discussed with Dr. Montelongo at 4:22 PM on 05/04/2024 Impression dictated by: Ata Samuel M.D.05/04/2024 4:23 PM Dictation Location: [place] [address] Transcribed By: YADIRA 05/04/24 1623 Dictated By: Ata Samuel II, MD 05/04/24 1620 Signed By: 05/04/24 162 Normal [facility] Calcium [Mass/volume] in Ser um or PlasmaOrdered By: Meme Montelongo on 05-04-2024 Calcium [Mass/Vol] 9.2 mg/dL Normal 8.6-10.3 [facility] Comment on above: Performed By: #### H S TROP, CBC, CK, PTT, PT, CMP #### [address] Capillary blood glucose sudhakar urement by glucometer (mass/volume)Ordered By: Meme Montelongo on 05-04-2024 Glucose [Mass/Vol] 135 mg/dL High 70-105 [facility] Comment on above: Result Comment: PERF ORMED BY: [place] [id number] PATHOLOGIST [employer] TECHNICAL OFFICER ANA LAURA MCCRARY M.D. Performed By: #### E RBMP #### [facility] [address] Point of Care testing , Glucose [Mass/Vol] 127 mg/dL Normal [facility] Comment on above: Random Glucose Refer ence Range is dependent on time and content of last meal. Glucose of more than 200 mg/dL in a nonstressed, ambulatory subject supports the diagnosis of Diabetes Mellitus. Result Comment: [place] om Glucose Reference Range is dependent on time and content of last meal. Glucose of more than 200 mg/dL in a nonstressed, ambulatory subject supports the diagnosis of Diabetes Mellitus. PERFORMED BY: [place] [address] PATHOLOGIST FI[employer] TECHNICAL OFFICER ANA LAURA MCCRARY M.D. Performed By: #### G LULS #### Point of Care testing , Carbon dioxide, total [Moles /volume] in Serum or PlasmaOrdered By: Meme Montelongo on 05-04-2024 CO2 [Moles/Vol] 23.5 mmol/L Normal 21.0-31.0 [facility] Comment on above: Performed By: #### H S TROP, CBC, CK, PTT, PT, CMP #### [facility] [address] [place] [address] Cepheid COVID PCR Negativeon 05-04-2024 SARS-CoV-2 (COVID-19) RNA COBY+probe Ql (Unsp spec) Negative Normal Negative [facility] Comment on above: Result Comment: This is a duplicate Cepheid Xpert Xpress CoV-2/Flu/RSV Plus RNA by RT-PCR result to be used for statistical tracking purpose only. PERFORMED BY: [place] [address] PATHOLOGIST FI[employer] TECHNICAL OFFICER ANA LAURA MCCRARY M.D. Performed By: #### H S TROP, CBC, CK, PTT, PT, CMP #### [place] [id number] [facility] Chloride [Moles/volume] in S carlos or PlasmaOrdered By: Meme Montelongo on 05-04-2024 Chloride [Moles/Vol] 105 mmol/L Normal 98-107 [facility] Comment on above: Performed By: #### H S TROP, CBC, CK, PTT, PT, CMP #### [address] Color of Urine by AutoOrdere d By: Meme Montelongo on 05-04-2024 Color (U) Yellow Normal Yellow [facility] Comment on above: Order Comment: Name Collection Type:: Clean-Voided Midstream Performed By: #### H S TROP, CBC, CK, PTT, PT, CMP #### [address] Complete Blood Count Auto Di ffon 05-04-2024 Mean Corpuscular HGB Conc 34.2 g/dL Normal 32.0-35.0 [facility] Comment on above: Performed By: #### H S TROP, CBC, CK, PTT, PT, CMP #### [address] Monocytes/100 WBC (Bld) 17.82 % Normal 0.00-20.00 [facility] Comment on above: Performed By: #### H S TROP, CBC, CK, PTT, PT, CMP #### [address] NRBC% 0.1 /100{WBC} Normal 0-0.5 [facility] Comment on above: Performed By: #### H S TROP, CBC, CK, PTT, PT, CMP #### [address] Comprehensive Metabolic Pane britney 05-04-2024 Albumin [Mass/Vol] 4.2 g/dL Normal 3.5-5.7 [facility] Comment on above: Performed By: #### H S TROP, CBC, CK, PTT, PT, CMP #### [address] Creatinine Clr Calc Pharmacy 40.72 Normal [facility] Comment on above: Result Comment: PERF ORMED BY: [place] [address] PATHOLOGIST [employer] TECHNICAL OFFICER ANA LAURA MCCRARY M.D. Performed By: #### H S TROP, CBC, CK, PTT, PT, CMP #### [facility] [address] GFR/1.73 sq M.predicted MDRD (S/P/Bld) [Vol rate/Area] 51.148 mL/min/{1.73_m2} Normal [facility] Comment on above: Performed By: #### H S TROP, CBC, CK, PTT, PT, CMP #### [facility] [address] [place] [id number] [facility] Creatine kinase [Enzymatic a ctivity/volume] in Serum or PlasmaOrdered By: Meme Montelongo on 05-04-2024 CK [Catalytic activity/Vol] 65 U/L Normal 30-223 [facility] Comment on above: Performed By: #### H S TROP, CBC, CK, PTT, PT, CMP #### [facility] [address] Creatinine [Mass/volume] in Serum or PlasmaOrdered By: Meme Montelongo on 05-04-2024 Creatinine [Mass/Vol] 1.14 mg/dL Normal 0.60-1.20 [facility] Comment on above: Performed By: #### H S TROP, CBC, CK, PTT, PT, CMP #### [place] [id number] [facility] ECG 12 lead ECGon 05-04-2024 ECG 12 lead ECG [facility] [place] [address] [place] [address] Electrocardiograph Report Signed Patient: Sarah Jimenez MR#: [id number] : 1950 Acct:[id number] Age/Sex: 74 / F ADM Date: 05/04/24 Loc: Room: [address] [place] [address] Type: ADM INOo Attending Dr: Marvin Iglesias DO Ordering Provider: Meme Montelongo MD Date of Service: 05/04/24 ECG/ECG 12 lead ECG: Neuro Symptoms/Deficit Copies to: Test Reason : Blood Pressure : 167/78 mmHG Vent. Rate : 66 BPM Atrial Rate : 66 BPM P-R Int : 126 ms QRS Dur : 68 ms QT Int : 410 ms P-R-T Axes : 35 39 32 degrees QTcB Int : 429 ms Normal sinus rhythm nonspecific t wave flattening When compared with ECG of 11-Nov-2022 23:43, No significant change was found Confirmed by Meme Montelongo MD ([id number]) on 05/04/2024 10:25:12 PM Referred By: Electronically Signed By: Meme Montelongo MD Transcribed By: MUS Signed By Meme Montelongo MD 04/225 Normal [facility] Erythrocyte distribution wid th [Ratio] by Automated countOrdered By: Meme Montelongo on 05-04-2024 Erythrocyte distribution width (RBC) [Ratio] 13.0 % Normal 11.9-15.3 [facility] Comment on above: Performed By: #### H S TROP, CBC, CK, PTT, PT, CMP #### [facility] [address] [place] [address] [place] Erythrocytes [#/volume] in B lood by Automated countOrdered By: Meme Montelongo on 05-04-2024 RBC (Bld) [#/Vol] 4.45 10*6/uL Normal 3.60-5.00 [facility] Comment on above: Performed By: #### H S TROP, CBC, CK, PTT, PT, CMP #### [facility] [address] Glucose [Mass/volume] in Ser um or PlasmaOrdered By: Meme Montelongo on 05-04-2024 Glucose [Mass/Vol] 133 mg/dL High 70-100 [facility] Comment on above: ADA recommended refe rence rangeRandom Glucose Reference Range is dependent on time and content of last meal. Glucose of more than 200 mg/dL in a nonstressed, ambulatory subject supports the diagnosis of Diabetes Mellitus. Result Comment: [place] om Glucose Reference Range is dependent on time and content of last meal. Glucose of more than 200 mg/dL in a nonstressed, ambulatory subject supports the diagnosis of Diabetes Mellitus. ADA recommended reference range Performed By: #### H S TROP, CBC, CK, PTT, PT, CMP #### [facility] [address] Hematocrit [Volume Fraction] of Blood by Automated countOrdered By: Meme Montelongo on 05-04-2024 Hematocrit (Bld) [Volume fraction] 42.0 % Normal 34.0-46.4 [facility] Comment on above: Performed By: #### H S TROP, CBC, CK, PTT, PT, CMP #### [facility] [address] [place] [address] Hemoglobin [Mass/volume] in BloodOrdered By: Meme Montelongo on 05-04-2024 Hemoglobin (Bld) [Mass/Vol] 14.4 g/dL Normal 11.8-15.4 [facility] Comment on above: Performed By: #### H S TROP, CBC, CK, PTT, PT, CMP #### [facility] [address] [place] [address] INR in Platelet poor plasma by Coagulation assayOrdered By: Meme Montelongo on 05-04-2024 INR Coag (PPP) [Relative time] 0.9 {INR} Normal [facility] Comment on above: INR Therapeutic Rang e A) Pre- and Peroperative OAT started two weeks before surgery. NOT HIP SURGERY: 1.5 - 2.5 HIP SURGERY: 2 - 3B) Primary and secondary prevention of venous THROMBOSIS: 2 - 3C) Active venous thrombosis, pulmonary embolismand prevention of recurrent venous thrombosis: 2 - 3D) Prevention of arterial thromboembolismincluding patients with mechanical heart valves: 3 - 4.5 Result Comment: INR Therapeutic Range A) Pre- and Peroperative OAT started two weeks before surgery. NOT HIP SURGERY: 1.5 - 2.5 HIP SURGERY: 2 - 3 B) Primary and secondary prevention of venous THROMBOSIS: 2 - 3 C) Active venous thrombosis, pulmonary embolism and prevention of recurrent venous thrombosis: 2 - 3 D) Prevention of arterial thromboembolism including patients with mechanical heart valves: 3 - 4.5 Performed By: #### H S TROP, CBC, CK, PTT, PT, CMP #### [facility] [address] [place] [address] ISTAT ER Chem8+ Panelon 04-22 CO2 [Moles/Vol] 28 mmol/L Normal 23-29 [facility] Comment on above: Performed By: #### E RBMP #### [address] Point of Care testing , ISTAT Ionized Calcium 1.18 mol/L Normal 1.12-1.32 [facility] Comment on above: Performed By: #### E RBMP #### [address] Point of Care testing , Ketones Auto test strip (U) [Mass/Vol]Ordered By: Meme Montelongo on 05-04-2024 Ketones (U) [Mass/Vol] Trace High Negative [facility] Lactate [Moles/volume] in Se rum or PlasmaOrdered By: Meme Montelongo on 05-04-2024 Lactate [Moles/Vol] 1.3 mmol/L Normal 0.5-2.2 [facility] Comment on above: Result Comment: PERF ORMED BY: [place] [address] PATHOLOGIST FI[employer] TECHNICAL OFFICER ANA LAURA MCCRARY M.D. Performed By: #### H S TROP, CBC, CK, PTT, PT, CMP #### [address] Leukocytes [#/volume] correc alondra for nucleated erythrocytes in Blood by Automated counOrdered By: Meme Montelongo on 05-04-2024 WBC corrected for nucl RBC Auto (Bld) [#/Vol] 16.4 10*3/uL High 3.8-11.6 [facility] Leukocytes [#/volume] in Blo od by Automated countOrdered By: Meme Montelongo on 05-04-2024 WBC (Bld) [#/Vol] 16.4 10*3/uL High 3.8-11.6 [facility] Comment on above: Performed By: #### H S TROP, CBC, CK, PTT, PT, CMP #### [address] Lymphocytes [#/volume] in Bl ood by Automated countOrdered By: Meme Montelongo on 05-04-2024 Lymphocytes (Bld) [#/Vol] 2.2 10*3/uL Normal 1.00-4.8 [facility] Comment on above: Performed By: #### H S TROP, CBC, CK, PTT, PT, CMP #### [facility] [address] Lymphocytes/100 leukocytes i n Blood by Automated countOrdered By: Meme Montelongo on 05-04-2024 Lymphocytes/100 WBC (Bld) 13.3 % Normal . [facility] Comment on above: Performed By: #### H S TROP, CBC, CK, PTT, PT, CMP #### [facility] [address] MCH [Entitic mass] by Automa alondra countOrdered By: Meme Montelongo on 05-04-2024 MCH (RBC) [Entitic mass] 32.2 pg Normal 24.7-34.3 [facility] Comment on above: Performed By: #### H S TROP, CBC, CK, PTT, PT, CMP #### [facility] [address] [place] [address] MCHC Auto (RBC) [Mass/Vol]Or dered By: Meme Montelongo on 05-04-2024 MCHC (RBC) [Mass/Vol] 34.2 g/dL 32.0-35.0 [facility] MCV [Entitic volume] by Auto mated countOrdered By: Meme Montelongo on 05-04-2024 MCV (RBC) [Entitic vol] 94.4 fL Normal 80-100 [facility] Comment on above: Performed By: #### H S TROP, CBC, CK, PTT, PT, CMP #### [facility] [address] [place] [address] Monocyte distribution width [Entitic volume] in Blood by AutomatedOrdered By: Meme Montelongo on 05-04-2024 Monocyte distribution width Auto (Bld) [Entitic vol] 17.82 % 0.00-20.00 [facility] Neutrophils [#/volume] in Bl ood by Automated countOrdered By: Meme Montelongo on 05-04-2024 Neutrophils (Bld) [#/Vol] 12.5 10*3/uL High 1.8-7.7 [facility] Comment on above: Performed By: #### H S TROP, CBC, CK, PTT, PT, CMP #### [facility] [address] [place] [address] Nitrite Test strip Ql (U)Ord ered By: Meme Montelongo on 05-04-2024 Nitrite Ql (U) Negative Negative [facility] No Panel InformationOrdered By: Meme Montelongo on 05-04-2024 Estimated GFR (CKD-EPI) 51.148 mL/Min [facility] Creatinine Clearance (Chem 40.72 [facility] Nucleated erythrocytes [Pres ence] in Blood by Automated countOrdered By: Meme Montelongo on 05-04-2024 Nucleated RBC Auto Ql (Bld) 0.1 /100{WBC} 0-0.5 [facility] Partial Thromboplastin Timeo n 05-04-2024 aPTT Coag (Bld) [Time] 25.5 s Normal 25.1-36.5 [facility] Comment on above: Result Comment: A he matocrit value greater than 55% may lead to inaccurate results in coagulation testing. Patients having hematocrit values >55% require a special collection tube for coagulation studies. Please contact the laboratory at [phone] for redraw instructions. PERFORMED BY: [place] [address] PATHOLOGIST FI[employer] TECHNICAL OFFICER ANA LAURA MCCRARY M.D. Performed By: #### H S TROP, CBC, CK, PTT, PT, CMP #### [facility] [address] [place] [address] [place] Platelet mean volume [Entiti c volume] in Blood by Automated countOrdered By: Meme Montelongo on 05-04-2024 Platelet mean volume (Bld) [Entitic vol] 8.2 fL Normal 6.3-10.7 [facility] Comment on above: Performed By: #### H S TROP, CBC, CK, PTT, PT, CMP #### [address] Platelets [#/volume] in Bloo d by Automated countOrdered By: Meme Montelongo on 05-04-2024 Platelets (Bld) [#/Vol] 264 10*3/uL Normal 150-450 [facility] Comment on above: Performed By: #### H S TROP, CBC, CK, PTT, PT, CMP #### [facility] [address] Potassium [Moles/volume] in Serum or PlasmaOrdered By: Meme Montelongo on 05-04-2024 Potassium [Moles/Vol] 4.5 mmol/L Normal 3.5-5.1 [facility] Comment on above: Performed By: #### H S TROP, CBC, CK, PTT, PT, CMP #### [facility] [address] Protein Auto test strip (U) [Mass/Vol]Ordered By: Meme Montelongo on 05-04-2024 Protein (U) [Mass/Vol] Negative Negative [facility] Protein [Mass/volume] in Ser um or PlasmaOrdered By: Meme Montelongo on 05-04-2024 Protein [Mass/Vol] 6.9 g/dL Normal 6.4-8.9 [facility] Comment on above: Performed By: #### H S TROP, CBC, CK, PTT, PT, CMP #### [place] [id number] [facility] Prothrombin time (PT)Ordered By: Meme Montelongo on 05-04-2024 PT Coag (PPP) [Time] 10.8 s Normal 9.0-12.9 [facility] Comment on above: A hematocrit value g reater than 55% may lead to inaccurate results in coagulation testing. Patients having hematocrit values >55% require a special collection tube for coagulation studies. Please contact the laboratory at [phone] for redraw instructions. Result Comment: A he matocrit value greater than 55% may lead to inaccurate results in coagulation testing. Patients having hematocrit values >55% require a special collection tube for coagulation studies. Please contact the laboratory at [phone] for redraw instructions. Performed By: #### H S TROP, CBC, CK, PTT, PT, CMP #### [address] Serum globulin measurement b y calculation (mass/volume)Ordered By: Meme Montelongo on 05-04-2024 Globulin (S) [Mass/Vol] 2.7 g/dL Normal [facility] Comment on above: Performed By: #### H S TROP, CBC, CK, PTT, PT, CMP #### [facility] [address] [place] [address] Serum or plasma albumin/glob ulin mass ratioOrdered By: Meme Montelongo on 05-04-2024 Albumin/Globulin [Mass ratio] 1.6 {ratio} [facility] Comment on above: Performed By: #### H S TROP, CBC, CK, PTT, PT, CMP #### [facility] [address] [place] [address] Serum or plasma anion gap de terminationOrdered By: Meme Montelongo on 05-04-2024 Anion gap [Moles/Vol] 12.0 mmol/L Normal 6.0-15.0 [facility] Comment on above: Performed By: #### H S TROP, CBC, CK, PTT, PT, CMP #### [address] Sodium [Moles/volume] in Ser um or PlasmaOrdered By: Meme Montelongo on 05-04-2024 Sodium [Moles/Vol] 136 mmol/L Normal 136-145 [facility] Comment on above: Performed By: #### H S TROP, CBC, CK, PTT, PT, CMP #### [facility] [address] [place] [address] Specific gravity Auto test s trip (U) [Rel density]Ordered By: Meme Montelongo on 05-04-2024 Specific gravity (U) [Rel density] > 1.050 High 1.001-1.030 [facility] Troponin I High Sensitivityo n 05-04-2024 Troponin I High Sensitivity 3.6 pg/mL Normal 0.0-15.0 [facility] Comment on above: Result Comment: PERF ORMED BY: [place] [address] PATHOLOGIST FI[employer] TECHNICAL OFFICER JIANLAN SUN M.D. Performed By: #### H S TROP, CBC, CK, PTT, PT, CMP #### [facility] [address] Troponin I.cardiac [Mass/vol ume] in Serum or Plasma by Detection limit <= 0.01 ng/Ordered By: Meme Montelongo on 05-04-2024 Troponin I.cardiac DL <= 0.01 ng/mL [Mass/Vol] 3.6 pg/mL 0.0-15.0 [facility] Urea nitrogen [Mass/volume] in Serum or PlasmaOrdered By: Meme Montelongo on 05-04-2024 Urea nitrogen [Mass/Vol] 26 mg/dL High 7-25 [facility] Comment on above: Performed By: #### H S TROP, CBC, CK, PTT, PT, CMP #### [facility] [address] Urinalysison 05-04-2024 Appearance (U) Clear Normal Clear [facility] Comment on above: Order Comment: Name Collection Type:: Clean-Voided Midstream Performed By: #### H S TROP, CBC, CK, PTT, PT, CMP #### [facility] [address] Bilirubin,Urine Negative Normal Negative [facility] Comment on above: Order Comment: Name Collection Type:: Clean-Voided Midstream Performed By: #### H S TROP, CBC, CK, PTT, PT, CMP #### [facility] [address] Glucose Ql (U) Normal Normal Normal [facility] Comment on above: Order Comment: Name Collection Type:: Clean-Voided Midstream Performed By: #### H S TROP, CBC, CK, PTT, PT, CMP #### [facility] [address] Ketones Ql (U) Trace High Negative [facility] Comment on above: Order Comment: Name Collection Type:: Clean-Voided Midstream Performed By: #### H S TROP, CBC, CK, PTT, PT, CMP #### [facility] [address] Leukocyte esterase Test strip Ql (U) Negative Normal Negative [facility] Comment on above: Order Comment: Name Collection Type:: Clean-Voided Midstream Performed By: #### H S TROP, CBC, CK, PTT, PT, CMP #### [place] [address] [place] Nitrite,Urine Negative Normal Negative [facility] Comment on above: Order Comment: Name Collection Type:: Clean-Voided Midstream Performed By: #### H S TROP, CBC, CK, PTT, PT, CMP #### [address] Occult Blood,Urine Negative Normal Negative [facility] Comment on above: Order Comment: Name Collection Type:: Clean-Voided Midstream Result Comment: PERF ORMED BY: [place] [address] PATHOLOGIST FI[employer] TECHNICAL OFFICER ANA LAURA MCCRARY M.D. Performed By: #### H S TROP, CBC, CK, PTT, PT, CMP #### [address] Protein,Urine Negative Normal Negative [facility] Comment on above: Order Comment: Name Collection Type:: Clean-Voided Midstream Performed By: #### H S TROP, CBC, CK, PTT, PT, CMP #### [address] Specificy Hector,Urine > 1.050 High 1.001-1.030 [facility] Comment on above: Order Comment: Name Collection Type:: Clean-Voided Midstream Performed By: #### H S TROP, CBC, CK, PTT, PT, CMP #### [place] [address] [place] Urobilinogen,Urine Normal Normal Normal [facility] Comment on above: Order Comment: Name Collection Type:: Clean-Voided Midstream Performed By: #### H S TROP, CBC, CK, PTT, PT, CMP #### [address] Urine Cultureon 05-04-2024 Bacteria identified Cx Nom (U) 75,000 colonies/ml mixed bacterial skin contaminants 2 Days PERFORMED BY: [place] [address] PATHOLOGIST FI[employer] TECHNICAL OFFICER ANA LAURA MCCRARY M.D. Normal [facility] Comment on above: Performed By: #### H S TROP, CBC, CK, PTT, PT, CMP #### [facility] [address] Urine clarity by refractomet ry automatedOrdered By: Meme Montelongo on 05-04-2024 Clarity Refractometry automated (U) Clear Clear [facility] Urine culture routineOrdered By: Meme Montelongo on 05-04-2024 Bacteria identified Cx Nom (U) 2 Days [facility] Urine glucose measurement by automated test strip (mass/volume)Ordered By: Meme Montelongo on 05-04-2024 Glucose Auto test strip (U) [Mass/Vol] Normal mg/dL Normal [facility] Urine hemoglobin detection b y automated test stripOrdered By: Meme Montelongo on 05-04-2024 Hemoglobin Auto test strip Ql (U) Negative Negative [facility] Urine leukocyte esterase det ection by automated test stripOrdered By: Meme Montelongo on 05-04-2024 Leukocyte esterase Auto test strip Ql (U) Negative Negative [facility] Urine pH measurement by auto mated test stripOrdered By: Meme Montelongo on 05-04-2024 pH (U) 5.5 [pH] Normal 5.0-9.0 [facility] Comment on above: Order Comment: Name Collection Type:: Clean-Voided Midstream Performed By: #### H S TROP, CBC, CK, PTT, PT, CMP #### [facility] [address] [place] [id number] [place] Urobilinogen Auto test strip (U) [Mass/Vol]Ordered By: Meme Montelongo on 05-04-2024 Urobilinogen (U) [Mass/Vol] Normal mg/dL Normal [facility] Whole blood chloride measure mentOrdered By: Meme Montelongo on 05-04-2024 Chloride [Moles/Vol] 104.0 mmol/L Normal 98-109 [facility] Comment on above: Performed By: #### E RBMP #### [facility] [address] [place] [id number] [facility] Point of Care testing , Whole blood creatinine measu rementOrdered By: Meme Montelongo on 05-04-2024 Creatinine [Mass/Vol] 1.1 mg/dL Normal 0.6-1.3 [facility] Comment on above: ER/ESD physician is notified/shown all ISTAT results.Critical values may be confirmed by laboratory testing ifdeemed necessary by ER attending doctor. Result Comment: ER/E SD physician is notified/shown all ISTAT results. Critical values may be confirmed by laboratory testing if deemed necessary by ER attending doctor. Performed By: #### E RBMP #### [facility] [address] [place] [address] Point of Care testing , Whole blood ionized calcium measurement (moles/volume)Ordered By: Meme Montelongo on 05-04-2024 Calcium.ionized (Bld) [Moles/Vol] 1180 mmol/L 1.12-1.32 [facility] Whole blood potassium measur ementOrdered By: Meme Montelongo on 05-04-2024 Potassium [Moles/Vol] 4.5 mmol/L Normal 3.5-4.9 [facility] Comment on above: Performed By: #### E RBMP #### [facility] [address] [place] [address] Point of Care testing , Whole blood sodium measureme ntOrdered By: Meme Montelongo on 05-04-2024 Sodium [Moles/Vol] 138 mmol/L Normal 138-146 [facility] Comment on above: Performed By: #### E RBMP #### [facility] [address] [place], [place] [id number] [facility] Point of Care testing , US carotid doppler BIon 03-23 US carotid doppler BI [facility] [address] [place] [address] Ultrasound Report Signed Patient: Sarah Jimenez MR#: [id number] : 1950 Acct:[id number] Age/Sex: 74 / F ADM Date: 04/09/24 Loc: [facility] Room: Type: [facility] Attending Dr: Scott Sellers MD Ordering Provider: Scott Sellers MD Date of Service: 04/09/24 US/US carotid doppler BI: I65.23 Copies to: Scott Sellers MD CAROTID DUPLEX INDICATION: Known carotid occlusive disease status post left carotid stent placement PROCEDURE: Color-flow duplex scanning is used to interrogate the extracranial carotid arterial system, as well as both vertebral arteries. Both carotid bifurcations show some smooth homogeneous plaque formation. The proximal right internal carotid artery shows a highest peak systolic velocity of 103 cm/s with an end-diastolic velocity of 30.1 cm/s . The mid internal carotid artery measures 109 cm/s peak systolic with an end diastolic velocity of 35.7 cm/s . The distal segment measures 118 cm/s peak systolic with an end diastolic velocity of 37.1 cm/s . The velocities of the right common carotid artery are 101 cm/s peak systolic and 17.4 cm/s end-diastolic and 74.2 cm/s peak systolic and 18.7 cm/s end diastolic distally. The peak systolic velocity ratio of the internal to the common carotid artery is 1.59 . The external carotid artery measures 126 cm/s peak systolic. The right vertebral artery is patent at 43.8 cm/s peak systolic with antegrade flow. The proximal left internal carotid artery shows a highest peak systolic velocity of 87.8 cm/s with an end-diastolic velocity of 32.9 cm/s . The mid internal carotid artery measures 94.1 cm/s peak systolic with an end diastolic velocity of 29.8 cm/s . The distal segment measures 83.9 cm/s peak systolic with an end diastolic velocity of 36.1 cm/s . The velocities of the left common carotid artery are 101 cm/s peak systolic and 24.2 cm/s end-diastolic and 65.2 cm/s peak systolic and 19.9 cm/s end diastolic distally. The peak systolic velocity ratio of the internal to the common carotid artery is 1.44 . The external carotid artery measures 278 cm/s peak systolic. The left vertebral artery is patent at 62.1 cm/s peak systolic with antegrade flow. US/US carotid doppler BI IMPRESSION: Right carotid bifurcation shows moderate plaque formation but no hemodynamically significant stenosis. Good result after left carotid stent placement with no hemodynamically significant residual or recurrent stenosis. Both vertebral arteries are patent with antegrade flow. Impression dictated by: Scott Sellers M.D.04/09/2024 11:29 AM Dictation Location: [place] [address] Tech: Ayesha Loco Transcribed By: YADIRA 04/09/24 1129 Dictated By: Scott Sellers MD 04/09/24 1128 Signed By: 04/09/24 [address] [facility] [place] 03-29-2024 Screens [id number] Normal [facility] Ambulatory Visit Summaryon 0 03-28-2024 Ambulatory Visit Summary SARAH JIMENEZ :1950 Visit Date:03/28/2024 Ambulatory Visit Instructions Your Diagnosis Chronic cystitis without hematuria History of kidney stones Hypocitraturia Urine incontinence Your Care Team Attending Physician - CARLA ABRAHAM PA-C Primary Care Physician - SHARMAINE FLETCHER DO This Is Your Medications List citric acid-sodium citrate (citric acid-sodium citrate 640 mg-490 mg/5 mL oral solution) estradiol topical (estradiol 0.1 mg/g Vag Crm) potassium bicarbonate (Effer-K 25 mEq oral tablet, effervescent) Contact prescribing physician if questions or concerns amlodipine (amLODIPine 5 mg Tab) atorvastatin (atorvastatin 80 mg Tab) clopidogrel (clopidogrel 75 mg Tab) escitalopram metoprolol (metoprolol 25 mg ER Tab) naproxen Procedures Performed Endarterectomy (2022), Cystourethroscopy with dilation of urethral stricture (06/30/2016), Cystoscopic removal of ureteric stent (11/20/2008), ESWL - Extracorporeal shockwave lithotripsy for renal calculus (11/12/2008), ESWL - Extracorporeal shockwave lithotripsy for renal calculus (08/18/2004), Hysterectomy. Discharge Vitals Temperature (Temporal Artery) 36 ?C Heart Rate (Peripheral) 64 Respiratory Rate 18 Blood Pressure 120/68 Height 157 cm Height 62 in Weight 68.6 kg Weight 150.92 lb BMI 27.83 What to do next You Need to Schedule the Following Appointments Follow Up with LEIGH LIZ, ALANA MORENO When: Comments: 18 mos (no labs) Where: [address] [place] [address] [phone] Medications What How Much When Instructions Unchanged citric acid-sodium citrate (citric acid-sodium citrate 640 mg-490 mg/ 5 mL oral solution) See instructions Take 1 teaspoon twice daily Unchanged estradiol topical (estradiol 0.1 mg/ g Vag Crm) 1 Gram Vaginal Monday & Monday Apply 1 gram 2x/ week and rub some around the urethra. Unchanged potassium bicarbonate (Effer-K 25 mEq oral tablet, effervescent) 1 Tablets By Mouth 2 times a day Unchanged amlodipine (amLODIPine 5 mg Tab) By Mouth Every day Contact prescribing physician if questions or concerns Unchanged atorvastatin (atorvastatin 80 mg Tab) Contact prescribing physician if questions or concerns Unchanged clopidogrel (clopidogrel 75 mg Tab) Contact prescribing physician if questions or concerns Unchanged escitalopram By Mouth Every day Contact prescribing physician if questions or concerns Unchanged metoprolol (metoprolol 25 mg ER Tab) By Mouth Every day Contact prescribing physician if questions or concerns Unchanged naproxen By Mouth Contact prescribing physician if questions or concerns Allergies No Known Allergies Problems Ongoing - Any problem that you are currently receiving treatment for. Anxiety disorder Arthritis Chronic cystitis without hematuria Depression Elevated cholesterol Frequency of urination History of kidney stones Hypocitraturia Migraine headache Urinary, incontinence, stress female Urine incontinence Historical - Any problem that you are no longer receiving treatment for. Kidney stone Patient Survey You may receive a survey via text or e-mail asking about your office visit. Please share your experience with us by completing your survey. We appreciate your feedback and thank you for choosing us for your care. Education Materials Kegel Exercises Kegel exercises can help strengthen your pelvic floor muscles. The pelvic floor is a group of muscles that support your rectum, small intestine, and bladder. In females, pelvic floor muscles also help support the uterus. These muscles help you control the flow of urine and stool (feces). Kegel exercises are painless and simple. They do not require any equipment. Your provider may suggest Kegel exercises to: ? Improve bladder and bowel control. ? Improve sexual response. ? Improve weak pelvic floor muscles after surgery to remove the uterus (hysterectomy) or after , in females. ? Improve weak pelvic floor muscles after prostate gland removal or surgery, in males. Kegel exercises involve squeezing your pelvic floor muscles. These are the same muscles you squeeze when you try to stop the flow of urine or keep from passing gas. The exercises can be done while sitting, standing, or lying down, but it is best to vary your position. Ask your health care provider which exercises are safe for you. Do exercises exactly as told by your health care provider and adjust them as directed. Do not begin these exercises until told by your health care provider. Exercises How to do Kegel exercises: 1. Squeeze your pelvic floor muscles tight. You should feel a tight lift in your rectal area. If you are a female, you should also feel a tightness in your vaginal area. Keep your stomach, buttocks, and legs relaxed. 2. Hold the muscles tight for up to 10 seconds. 3. Breathe normally. 4. R (more content not included)... Normal [facility] Patient Educationon 03-28-20 Patient Education Obstetrics and Gynec ology Kegel Exercises Kegel exercises can help strengthen your pelvic floor muscles. The pelvic floor is a group of muscles that support your rectum, small intestine, and bladder. In females, pelvic floor muscles also help support the uterus. These muscles help you control the flow of urine and stool (feces). Kegel exercises are painless and simple. They do not require any equipment. Your provider may suggest Kegel exercises to: ? Improve bladder and bowel control. ? Improve sexual response. ? Improve weak pelvic floor muscles after surgery to remove the uterus (hysterectomy) or after , in females. ? Improve weak pelvic floor muscles after prostate gland removal or surgery, in males. Kegel exercises involve squeezing your pelvic floor muscles. These are the same muscles you squeeze when you try to stop the flow of urine or keep from passing gas. The exercises can be done while sitting, standing, or lying down, but it is best to vary your position. Ask your health care provider which exercises are safe for you. Do exercises exactly as told by your health care provider and adjust them as directed. Do not begin these exercises until told by your health care provider. Exercises How to do Kegel exercises: 1. Squeeze your pelvic floor muscles tight. You should feel a tight lift in your rectal area. If you are a female, you should also feel a tightness in your vaginal area. Keep your stomach, buttocks, and legs relaxed. 2. Hold the muscles tight for up to 10 seconds. 3. Breathe normally. 4. Relax your muscles for up to 10 seconds. 5. Repeat as told by your health care provider. Repeat this exercise daily as told by your health care provider. Continue to do this exercise for at least 4?6 weeks, or for as long as told by your health care provider. You may be referred to a physical therapist who can help you learn more about how to do Kegel exercises. Depending on your condition, your health care provider may recommend: ? Varying how long you squeeze your muscles. ? Doing several sets of exercises every day. ? Doing exercises for several weeks. ? Making Kegel exercises a part of your regular exercise routine. This information is not intended to replace advice given to you by your health care provider. Make sure you discuss any questions you have with your health care provider. Document Revised: 02/17/2022 Document Reviewed: 02/17/2022 [employer] Patient Education ? 2022 [employer] [facility] Urology Office/Clinic Noteon 03-28-2024 Urology Office/Clinic Note Chief Complaint 1 year follow up HPI Staff Pt here today for 1 year follow up. Pt declined imaging for this appt. Previous DX: chronic cystitis without hematuria, frequency of urination, history of kidney stones, hypocitraturia, urinary incontinence of female. S/P Cysto/UD done 06/30/16. ESWL done 11/12/08. Dysuria: denies pain and burning Incomplete bladder emptying: denies Hematuria: denies visible blood Frequency: depends on water intake Urgency: denies Nocturia: denies Stream: denies hesitancy Leaking: only when drinking too much water Post void dripping: denies Wearing pads/ Depends: denies Urge incontinence: denies Stress incontinence: denies Incontinence without Sensory Awareness: denies Abdominal pain: denies Flank pain: denies Sexual complaints: _ History of Present Illness staff HPI reviewed and agree. Review of Systems PHQ Score Initial Depression Screen Score: 0 SCORE no fever, chills, malaise, myalgia. no rash/lesions. no chest pain, palpitations, or SOB. no abdominal pain, nausea, vomiting. no unilateral calf swelling, redness, pain Physical Exam Vitals & Measurements T: 36 ?C(Temporal Artery) HR: 64(Peripheral) RR: 18 BP: 120/68 HT: 62 in HT: 157 cm WT: 68.6 kg WT: 150.92 lb BMI: 27.83 General: nontoxic, NAD Mouth: moist mucosa Lungs: normal respiratory effort Cardio: regular rate, good distal perfusion Abdomen: nondistended, no suprapubic distention or tenderness, no CVA tenderness Neurologic: Grossly normal Skin: No rashes or suspicious lesions Assessment/Plan PRW pt 1. Chronic cystitis without hematuria (N30.20: Other chronic cystitis without hematuria) UA today negative for blood. Trace leuks only. asx. will not send for cx. No infections since last encounter. Still using estrogen cream 2x/wk. Refills sent today. 2. History of kidney stones (Z87.442: Personal history of urinary calculi) KUB 11/2020 - no stones. Longstanding hx stones. No recent imaging. No recent flank pain, stone passage, or gross hematuria. Declines updated imaging. 3. 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 PCP dc'd effer-K in Jun 2022 due to high K and renal/cardiac issues. We switched her to sodium citrate. Pt resumed effer K on her own as she strongly prefers this to the sodium citrate (due to taste and feels the effer K helps with leg cramps/pain). Rechecked electrolytes, potassium level was too high so effer-k was stopped and sodium citrate was restarted. Currently taking sodium citrate 1tsp bid. Refills called into pharmacy (would not allow us to e-scribe). 4. Urine incontinence (R32: Unspecified urinary incontinence) BBS 19. Leaks 1x/day, depends on fluid intake. Not bothersome enough to warrant tx per pt. Did discuss tx options including oral meds, botox, SNM should sx worsen. Pt knows she can call office if sx worsen/become more bothersome. Follow-up With When Contact Information LEIGH LIZ, CARLA Lopes, URL [address] [place] [address] [phone] Additional Instructions: 18 mos (no labs) Patient Education Kegel Exercises Documentation recorded by the scrruben Arredondo accurately reflects the services(s) I performed and decisions made by me. Authenticated by Carla Abraham PA-C on 03/28/2024 12:40:48. I, Kiara Arredondo, personally scribed for Carla Abraham PA-C on 03/28/2024 11:30:59. . Problem List/Past Medical History Ongoing Anxiety disorder Arthritis Chronic cystitis without hematuria Depression Elevated cholesterol Frequency of urination History of kidney stones Hypocitraturia Migraine headache Urinary, incontinence, stress female Urine incontinence Historical Kidney stone Procedure/Surgical History Endarterectomy (2022), Cystourethroscopy with dilation of urethral stricture (06/30/2016), Cystoscopic removal of ureteric stent (11/20/2008), ESWL - Extracorporeal shockwave lithotripsy for renal calculus (11/12/2008), ESWL - Extracorporeal shockwave lithotripsy for renal calculus (08/18/2004), Hysterectomy. Medications amLODIPine 5 mg Tab, Oral, Daily atorvastatin 80 mg Tab citric acid-sodium citrate 640 mg-490 mg/5 mL oral solution, See Instructions, 6 refills, Not taking clopidogrel 75 mg Tab Effer-K 25 mEq oral tablet, effervescent, 25 mEq= 1 tab(s), Oral, BID, 1 refills, Still taking, not as prescribed: PRW DC'd. Pt prefers this med over the other escitalopram, Oral, Daily estradiol 0.1 mg/g Vag Crm, 1 gm, Vaginal, MonFri, 6 refills metoprolol 25 mg ER Tab, Oral, Daily naproxen, Oral Allergies No Known Allergies Social History Alcohol - Denies Alcohol Use, 12/16/2019 Tobacco Never (less than 100 in lifetime) Tobacco Use:. Never Smokeless Tobacco Use:. Household tobacco concerns: No. Yes, 03/28/2023 Family History Family history is unknown Immunizations Vaccine Date Status influenza virus (more content not included)... Normal [facility] Comment on above: Result Comment: Elec tronically Signed By: LEIGH LIZ, CARLA Lopes\.br\Date and Time Signed: 03/28/24 12:43 EDT\.br\Electronically Co-Signed By: Kiara Arredondo\.br\Date and Time Co-Signed: 03/28/24 11:32 EDT POCT Glycated hemoglobin, to kim 12-01-2023 HbA1c (Bld) [Mass fraction] 5.9 % [facility] BI MAMMOGRAM SCREENING TOMOS YNTHESIS BILATERALon 11-09-2023 BI MAMMOGRAM SCREENING TOMOSYNTHESIS BILATERAL This is a summary report. The complete report is available in the patient's medical record. If you cannot access the medical record, please contact the sending organization for a detailed fax or copy. EXAMINATION: BI MAMMOGRAM SCREENING TOMOSYNTHESIS BILATERAL CLINICAL HISTORY: Screening COMPARISON: Priors from 2021, 2020. RESULT: 3-D tomosynthesis imaging of the bilateral breasts was performed. Density: Heterogeneously dense [3] There are no suspicious masses or asymmetries, areas of architectural distortion or suspicious areas of microcalcifications. IMPRESSION: BIRADS 1 - Negative Recommended follow-up: Routine Screening Mamm Board Certified Radiologists. Accredited by the ACR and FDA. MAMMOGRAPHY IS VERY IMPORTANT TO YOUR HEALTH. THE [employer] SOCIET[employer] GUIDELINES RECOMMEND THAT WOMEN 40 YEARS OF AGE AND OLDER SHOULD HAVE A MAMMOGRAM EVERY YEAR. A REMINDER LETTER WILL BE SENT AT THE APPROPRIATE TIME. THIS FACILITY UTILIZES A REMINDER SYSTEM TO ENSURE ALL PATIENTS RECEIVE REMINDER NOTIFICATIONS AT THE APPROPRIATE TIME BASED ON THE RECOMMENDATIONS OF THIS EXAM. THIS INCLUDES REMINDERS FOR ROUTINE SCREENING MAMMOGRAMS, DIAGNOSTIC MAMMOGRAMS IN WHICH THE PATIENT IS ASKED TO RETURN FOR ADDITIONAL VIEWS, OR OTHER BREAST IMAGING INTERVENTIONS WHEN APPROPRIATE. THE PATIENT WILL BE PLACED IN THE APPROPRIATE REMINDER SYSTEM INCLUDING A REMINDER AT THE APPROPRIATE TIME FOR ANY PENDING ADDITIONAL VIEWS. ELECTRONICALLY SIGNED BY: Nehemias Anderson MD Normal Not Available US carotid doppler BIon 12-2 US carotid doppler BI [facility] [place] [address] [place] [address] Ultrasound Report Signed Patient: Sarah Jimenez MR#: [id number] 522 : 1950 Acct:[id number] Age/Sex: 73 / F ADM Date: 10/10/23 Loc: [facility] Room: Type: [facility] Attending Dr: Carissa Dias FLIGHT INSPECTOR-C Ordering Provider: Carissa Dias APRN Date of Service: 10/10/23 US/US carotid doppler BI: I65.23 Copies to: Carissa Dias APRN CAROTID DUPLEX INDICATION: Known carotid occlusive disease PROCEDURE: Color-flow duplex scanning is used to interrogate the extracranial carotid arterial system, as well as both vertebral arteries. The proximal right internal carotid artery shows a highest peak systolic velocity of 81.4 cm/s with an end-diastolic velocity of 24.2 cm/s . The mid internal carotid artery measures 90.7 cm/s peak systolic and 24.9 cm/s end diastolic. The distal segment measures 83.2 cm/s peak systolic with an end diastolic velocity of 22.4 cm/s . The velocities of the right common carotid artery are 77 cm/s peak systolic and 15.5 cm/s end-diastolic proximally and 84 cm/s peak systolic and 16.7 cm/s end diastolic distally. The peak systolic velocity ratio of the internal to the common carotid artery is 1.08. The right external carotid artery measures 93.2 cm/s peak systolic. The right vertebral artery is patent at 33.7 cm/s with antegrade flow. A left carotid stent is present. The proximal left internal carotid artery shows a highest peak systolic velocity of 63.4 cm/s with an end-diastolic velocity of 17.2 cm/s . The mid internal carotid artery measures 68.8 cm/s peak systolic and 21.6 cm/s end diastolic. The distal segment measures 74.7 cm/s peak systolic with an end diastolic velocity of 27.5 cm/s . The velocities of the left common carotid artery are 93.8 cm/s peak systolic and 21.1 cm/s end-diastolic proximally and 55.4 cm/s peak systolic and 13.8 cm/s end diastolic distally. The peak systolic velocity ratio of the internal to the common carotid artery is 1.35 . The left external carotid artery measures 260 cm/s peak systolic. The left vertebral artery is patent at 59.6 cm/s with antegrade flow. US/US carotid doppler BI IMPRESSION: Mild plaque formation right internal carotid artery with less than 50% stenosis. Patent left internal carotid artery stent with no hemodynamically significant residual or recurrent stenosis. Both vertebral arteries are patent with antegrade flow. Impression dictated by: Scott Sellers M.D.10/13/2023 10:27 AM Dictation Location: [place] [address] Tech: Aissatou Cervantes Transcribed By: YADIRA 10/13/23 1027 Dictated By: Scott Sellers MD 10/13/23 1025 Signed By: 10/13/23 1027 Normal [facility] A1C with Estimated Average G yvan 09-18-2023 Glucose [Mass/Vol] 154 mg/dL Normal [facility] Comment on above: Result Comment: PERF ORMED BY: [place] [id number] PATHOLOGIST FIELD CROP TECHNICAL OFFICER ANA LAURA MCCRARY M.D. Performed By: #### H S TROP, CBC, CK, PTT, PT, CMP #### [facility] [address] [place] [address] [place] Alanine aminotransferase [En zymatic activity/volume] in Serum or PlasmaOrdered By: Sharmaine Fletcher on 09-18-2023 ALT [Catalytic activity/Vol] 25 U/L Normal 7-52 [facility] Comment on above: Performed By: #### H S TROP, CBC, CK, PTT, PT, CMP #### [facility] [address] [place] [address] [place] Albumin [Mass/volume] in Ser um or Plasma by Bromocresol green (BCG) dye binding methoOrdered By: Sharmaine Fletcher on 09-18-2023 Albumin BCG dye [Mass/Vol] 4.4 g/dL 3.5-5.7 [facility] Alkaline phosphatase [Enzyma tic activity/volume] in Serum or PlasmaOrdered By: Sharmaine Fletcher on 09-18-2023 ALP [Catalytic activity/Vol] 56 U/L Normal 34-104 [facility] Comment on above: Performed By: #### H S TROP, CBC, CK, PTT, PT, CMP #### [facility] [address] [place] [address] [place] Aspartate aminotransferase [ Enzymatic activity/volume] in Serum or PlasmaOrdered By: Sharmaine Fletcher on 09-18-2023 AST [Catalytic activity/Vol] 24 U/L Normal 13-39 [facility] Comment on above: Performed By: #### H S TROP, CBC, CK, PTT, PT, CMP #### [facility] [address] Bilirubin.total [Mass/volume ] in Serum or PlasmaOrdered By: Sharmaine Fletcher on 09-18-2023 Bilirubin [Mass/Vol] 1.2 mg/dL High 0.3-1.0 [facility] Comment on above: Performed By: #### H S TROP, CBC, CK, PTT, PT, CMP #### [facility] [address] Calcium [Mass/volume] in Ser um or PlasmaOrdered By: Sharmaine Fletcher on 09-18-2023 Calcium [Mass/Vol] 9.5 mg/dL Normal 8.6-10.3 [facility] Comment on above: Performed By: #### H S TROP, CBC, CK, PTT, PT, CMP #### [facility] [address] Carbon dioxide, total [Moles /volume] in Serum or PlasmaOrdered By: Sharmaine Fletcher on 09-18-2023 CO2 [Moles/Vol] 32.1 mmol/L High 21.0-31.0 [facility] Comment on above: Performed By: #### H S TROP, CBC, CK, PTT, PT, CMP #### [facility] [address] [place] [address] [place] Chloride [Moles/volume] in S carlos or PlasmaOrdered By: Sharmaine Fletcher on 09-18-2023 Chloride [Moles/Vol] 104 mmol/L Normal 98-107 [facility] Comment on above: Performed By: #### H S TROP, CBC, CK, PTT, PT, CMP #### [facility] [address] [place] [address] [place] Cholesterol [Mass/volume] in Serum or PlasmaOrdered By: Sharmaine Fletcher on 09-18-2023 Cholesterol [Mass/Vol] 138 mg/dL Low 140-200 [facility] Comment on above: Chol less than 200 m g/dl low riskChol 201-239 mg/dl borderline riskChol 240 mg/dl and greater high risk Result Comment: Chol less than 200 mg/dl low risk Chol 201-239 mg/dl borderline risk Chol 240 mg/dl and greater high risk Performed By: #### H S TROP, CBC, CK, PTT, PT, CMP #### [facility] [address] Cholesterol in LDL Calc [Mas s/Vol]Ordered By: Sharmaine Fletcher on 09-18-2023 Cholesterol in LDL [Mass/Vol] 53 mg/dL 0-100 [facility] Comment on above: LDL ATP III CLASSIFI CATIONLDL less than 100 mg/dL OptimalLDL 100-129 mg/dL Near or above optimalLDL 130-159 mg/dL Borderline highLDL 160-189 mg/dL HighLDL greater than 189 mg/dL Very high Cholesterol in VLDL Calc [Ma ss/Vol]Ordered By: Sharmaine Fletcher on 09-18-2023 Cholesterol in VLDL [Mass/Vol] 27 mg/dL [facility] Comprehensive Metabolic Pane britney 09-18-2023 Albumin [Mass/Vol] 4.4 g/dL Normal 3.5-5.7 [facility] Comment on above: Performed By: #### H S TROP, CBC, CK, PTT, PT, CMP #### [facility] [address] GFR/1.73 sq M.predicted MDRD (S/P/Bld) [Vol rate/Area] 52.573 mL/min/{1.73_m2} Normal [facility] Comment on above: Performed By: #### H S TROP, CBC, CK, PTT, PT, CMP #### [facility] [address] Creatinine [Mass/volume] in Serum or PlasmaOrdered By: Sharmaine Fletcher on 09-18-2023 Creatinine [Mass/Vol] 1.12 mg/dL Normal 0.60-1.20 [facility] Comment on above: Performed By: #### H S TROP, CBC, CK, PTT, PT, CMP #### [facility] [address] [place] [address] [place] Creatinine [Mass/volume] in UrineOrdered By: Sharmaine Fletcher on 09-18-2023 Creatinine (U) [Mass/Vol] 282.0 mg/dL 11.0-20.0 [facility] Erythrocyte distribution wid th [Ratio] by Automated countOrdered By: Sharmaine Fletcher on 09-18-2023 Erythrocyte distribution width (RBC) [Ratio] 12.9 % Normal 11.9-15.3 [facility] Comment on above: Performed By: #### C BCNO #### [facility] [address] Erythrocytes [#/volume] in B lood by Automated countOrdered By: Sharmaine Guajardo on 09-18-2023 RBC (Bld) [#/Vol] 4.77 10*6/uL Normal 3.60-5.00 [facility] Comment on above: Performed By: #### C BCNO #### [facility] [address] Glucose [Mass/volume] in Ser um or PlasmaOrdered By: Sharmaine Fletcher on 09-18-2023 Glucose [Mass/Vol] 125 mg/dL High 70-100 [facility] Comment on above: ADA recommended refe rence rangeRandom Glucose Reference Range is dependent on time and content of last meal. Glucose of more than 200 mg/dL in a nonstressed, ambulatory subject supports the diagnosis of Diabetes Mellitus. Result Comment: [place] om Glucose Reference Range is dependent on time and content of last meal. Glucose of more than 200 mg/dL in a nonstressed, ambulatory subject supports the diagnosis of Diabetes Mellitus. ADA recommended reference range Performed By: #### H S TROP, CBC, CK, PTT, PT, CMP #### [facility] [address] Glucose mean value [Mass/vol ume] in Blood Estimated from glycated hemoglobinOrdered By: Sharmaine Fletcher on 09-18-2023 Average glucose Estimated from glycated hemoglobin (Bld) [Mass/Vol] 154 mg/dL [facility] Hematocrit [Volume Fraction] of Blood by Automated countOrdered By: Sharmaine DamianKe on 09-18-2023 Hematocrit (Bld) [Volume fraction] 44.9 % Normal 34.0-46.4 [facility] Comment on above: Performed By: #### C BCNO #### [address] Hemoglobin A1c percentageOrd ered By: Sharmaine DamianElla on 09-18-2023 HbA1c (Bld) [Mass fraction] 7.0 % High 4.3-5.6 [facility] Comment on above: Increased risk for d iabetes: 5.7 - 6.4diabetes: >6.4glycemic control for adults with diabetes: <7.0 Result Comment: Incr eased risk for diabetes: 5.7 - 6.4 diabetes: >6.4 glycemic control for adults with diabetes: <7.0 Performed By: #### H S TROP, CBC, CK, PTT, PT, CMP #### [address] Hemoglobin [Mass/volume] in BloodOrdered By: Sharmaine Fletcher on 09-18-2023 Hemoglobin (Bld) [Mass/Vol] 15.0 g/dL Normal 11.8-15.4 [facility] Comment on above: Performed By: #### C BCNO #### [place] [address] [place] Hemogram CBC Without Diffon 09-18-2023 Mean Corpuscular HGB Conc 33.4 g/dL Normal 32.0-35.0 [facility] Comment on above: Performed By: #### C BCNO #### [address] WBC (Bld) [#/Vol] 8.7 10*3/uL Normal 3.8-11.6 [facility] Comment on above: Performed By: #### C BCNO #### [place] [id number] [place] Leukocytes [#/volume] correc alondra for nucleated erythrocytes in Blood by Automated counOrdered By: Sharmaine Fletcher on 09-18-2023 WBC corrected for nucl RBC Auto (Bld) [#/Vol] 8.7 10*3/uL 3.8-11.6 [facility] Lipid Panelon 09-18-2023 LDL Cholesterol,Calculated 53 mg/dL Normal 0-100 [facility] Comment on above: Result Comment: LDL ATP III CLASSIFICATION LDL less than 100 mg/dL Optimal LDL 100-129 mg/dL Near or above optimal LDL 130-159 mg/dL Borderline high LDL 160-189 mg/dL High LDL greater than 189 mg/dL Very high Performed By: #### H S TROP, CBC, CK, PTT, PT, CMP #### [address] Triglyceride w/Reflex 139 mg/dL Normal 0-149 [facility] Comment on above: Result Comment: TRIG ATP III CLASSIFICATION TRIG less than 150 mg/dL Normal TRIG 150-199 mg/dL Borderline high TRIG 200-500 mg/dL High TRIG greater than 500 mg/dL Very high Standard traceable to the Center for Disease Conrtrol and Prevention (CDC) test method. Performed By: #### H S TROP, CBC, CK, PTT, PT, CMP #### [facility] [address] [place] [address] VLDL CHOLESTEROL 27 mg/dL Normal [facility] Comment on above: Performed By: #### H S TROP, CBC, CK, PTT, PT, CMP #### [facility] [address] [place] [address] MCH [Entitic mass] by Automa alondra countOrdered By: Sharmaine Fletcher on 09-18-2023 MCH (RBC) [Entitic mass] 31.4 pg Normal 24.7-34.3 [facility] Comment on above: Performed By: #### C BCNO #### [address] MCHC Auto (RBC) [Mass/Vol]Or dered By: Sharmaine Fletcher on 09-18-2023 MCHC (RBC) [Mass/Vol] 33.4 g/dL 32.0-35.0 [facility] MCV [Entitic volume] by Auto mated countOrdered By: Sharmaine Fletcher on 09-18-2023 MCV (RBC) [Entitic vol] 94.0 fL Normal 80-100 [facility] Comment on above: Performed By: #### C BCNO #### [address] No Panel InformationOrdered By: Sharmaine Fletcher on 09-18-2023 Estimated GFR (CKD-EPI) 52.573 mL/Min [facility] Creatinine Clearance (Chem N/A [facility] Platelet mean volume [Entiti c volume] in Blood by Automated countOrdered By: Sharmaine Fletcher on 09-18-2023 Platelet mean volume (Bld) [Entitic vol] 9.0 fL Normal 6.3-10.7 [facility] Comment on above: Result Comment: PERF ORMED BY: [place] [address] PATHOLOGIST [employer] TECHNICAL OFFICER ANA LAURA MCCRARY M.D. Performed By: #### C BCNO #### [address] Platelets [#/volume] in Bloo d by Automated countOrdered By: Sharmaine Fletcher on 09-18-2023 Platelets (Bld) [#/Vol] 313 10*3/uL Normal 150-450 [facility] Comment on above: Performed By: #### C BCNO #### [address] Potassium [Moles/volume] in Serum or PlasmaOrdered By: Sharmaine Fletcher on 09-18-2023 Potassium [Moles/Vol] 4.9 mmol/L Normal 3.5-5.1 [facility] Comment on above: Performed By: #### H S TROP, CBC, CK, PTT, PT, CMP #### [place] [address] [place] Protein Creat Ratio Ur Rando mon 09-18-2023 Creatinine, Urine (Random) 282.0 mg/dL High 11.0-20.0 [facility] Comment on above: Performed By: #### H S TROP, CBC, CK, PTT, PT, CMP #### [address] Urine Protein/Creatinine Ratio 92 mg/g{Cre} Normal 0-200 [facility] Comment on above: Result Comment: PERF ORMED BY: [place] [address] PATHOLOGIST [employer] TECHNICAL OFFICER ANA LAURA MCCRARY M.D. Performed By: #### H S TROP, CBC, CK, PTT, PT, CMP #### [address] Protein [Mass/volume] in Ser um or PlasmaOrdered By: Sharmaine Fletcher on 09-18-2023 Protein [Mass/Vol] 6.8 g/dL Normal 6.4-8.9 [facility] Comment on above: Performed By: #### H S TROP, CBC, CK, PTT, PT, CMP #### [address] Protein [Mass/volume] in Uri neOrdered By: Sharmaine Fletcher on 09-18-2023 Protein (U) [Mass/Vol] 26 mg/dL High 0-9 [facility] Comment on above: Performed By: #### H S TROP, CBC, CK, PTT, PT, CMP #### [address] Serum globulin measurement b y calculation (mass/volume)Ordered By: Sharmaine Fletcher on 09-18-2023 Globulin (S) [Mass/Vol] 2.4 g/dL Normal [facility] Comment on above: Performed By: #### H S TROP, CBC, CK, PTT, PT, CMP #### [address] Serum or plasma albumin/glob ulin mass ratioOrdered By: Sharmaine Fletcher on 09-18-2023 Albumin/Globulin [Mass ratio] 1.8 {ratio} Normal [facility] Comment on above: Performed By: #### H S TROP, CBC, CK, PTT, PT, CMP #### [facility] [address] Serum or plasma anion gap de terminationOrdered By: Sharmaine Fletcher on 09-18-2023 Anion gap [Moles/Vol] 9.8 mmol/L Normal 6.0-15.0 [facility] Comment on above: Performed By: #### H S TROP, CBC, CK, PTT, PT, CMP #### [address] Serum or plasma high density lipoprotein (HDL) cholesterol measurementOrdered By: Sharmaine Fletcher on 09-18-2023 Cholesterol in HDL [Mass/Vol] 57 mg/dL Normal 23-92 [facility] Comment on above: HDL CHOL ATP-III CLA SSIFICATION Cardiovascular RiskHDL > or equal to 60 mg/dL LOWHDL < 40 mg/dL HIGH Result Comment: HDL CHOL ATP-III CLASSIFICATION Cardiovascular Risk HDL > or equal to 60 mg/dL LOW HDL < 40 mg/dL HIGH Performed By: #### H S TROP, CBC, CK, PTT, PT, CMP #### [address] Serum or plasma total choles terol/high density lipoprotein (HDL) cholesterol mass ratOrdered By: Sharmaine Fletcher on 09-18-2023 Cholesterol.total/Chol esterol in HDL [Mass ratio] 2.4 {ratio} Normal <5.0 [facility] Comment on above: Result Comment: PERF ORMED BY: [place] [address] PATHOLOGIST [employer] TECHNICAL OFFICER ANA LAURA MCCRARY M.D. Performed By: #### H S TROP, CBC, CK, PTT, PT, CMP #### [address] Sodium [Moles/volume] in Ser um or PlasmaOrdered By: Sharmaine Fletcher on 09-18-2023 Sodium [Moles/Vol] 141 mmol/L Normal 136-145 [facility] Comment on above: Performed By: #### H S TROP, CBC, CK, PTT, PT, CMP #### [facility] [address] [place] [id number] [facility] Triglyceride [Mass/volume] i n Serum or PlasmaOrdered By: Sharmaine Fletcher on 09-18-2023 Triglyceride [Mass/Vol] 139 mg/dL 0-149 [facility] Comment on above: TRIG ATP III CLASSIF ICATIONTRIG less than 150 mg/dL NormalTRIG 150-199 mg/dL Borderline highTRIG 200-500 mg/dL High TRIG greater than 500 mg/dL Very highStandard traceable to the Center for Disease Conrtrol and Prevention (CDC) test method. Urea nitrogen [Mass/volume] in Serum or PlasmaOrdered By: Sharmaine Fletcher on 09-18-2023 Urea nitrogen [Mass/Vol] 21 mg/dL Normal 7-25 [facility] Comment on above: Performed By: #### H S TROP, CBC, CK, PTT, PT, CMP #### [facility] [address] Urine protein/creatinine rat ioOrdered By: Sharmaine Fletcher on 09-18-2023 Protein/Creatinine (U) [Ratio] 92 mg/g{Cre} 0-200 [facility] CHEMISTRYOrdered By: SYSTEM SYSTEM on 03-28-2023 Potassium [Moles/Vol] 5.7 mmol/L High 3.5 - 5.3 mmol/L [facility] Comment on above: Result Comment: 'Spe cimen hemolyzed. Result may be affected. Redraw is recommended.' Laboratory - CoagulationOrde red By: Scott Sellers on 12-23-2022 PT Coag (PPP) [Time] 12.9 s 9.0-12.9 [facility] Platelet poor plasma interna tional normalized ratio (INR) by coagulation assay (relatOrdered By: Scott Sellers on 12-23-2022 INR Coag (PPP) [Relative time] 1.1 {INR} [facility] Comment on above: INR Therapeutic Rang e A) Pre- and Peroperative OAT started two weeks before surgery. NOT HIP SURGERY: 1.5 - 2.5 HIP SURGERY: 2 - 3B) Primary and secondary prevention of venous THROMBOSIS: 2 - 3C) Active venous thrombosis, pulmonary embolismand prevention of recurrent venous thrombosis: 2 - 3D) Prevention of arterial thromboembolismincluding patients with mechanical heart valves: 3 - 4.5 Activated partial thrombopla stin time (aPTT) in platelet poor plasma by coagulation aOrdered By: Scott Sellers on 12-22-2022 aPTT Coag (PPP) [Time] 19.5 s 25.1-36.5 [facility] Blood activated clotting mehnaz e by coagulation assayOrdered By: Scott Sellers on 12-22-2022 ACT Coag (Bld) 293 s 90-139 [facility] Comment on above: Reference Range: 90- 139 (Non-heparinized) Basophils Auto (Bld) [#/Vol] Ordered By: Scott Sellers on 12-14-2022 Basophils (Bld) [#/Vol] 0.1 10*3/uL 0.0-0.2 [facility] Basophils/100 WBC Auto (Bld) Ordered By: Scott Sellers on 12-14-2022 Basophils/100 WBC (Bld) 0.7 % . [facility] Calcium [Mass/volume] in Ser um or PlasmaOrdered By: Scott Sellers on 12-14-2022 Calcium [Mass/Vol] 9.1 mg/dL 8.2-10.2 [facility] Carbon dioxide, total [Moles /volume] in Serum or PlasmaOrdered By: Scott Sellers on 12-14-2022 CO2 [Moles/Vol] 28.0 mmol/L 22.0-30.0 [facility] Creatinine and Glomerular fi ltration rate.predicted panel (S/P/Bld)Ordered By: Scott Sellers on 12-14-2022 Creatinine [Mass/Vol] 1.00 mg/dL 0.44-1.03 [facility] Eosinophils Auto (Bld) [#/Vo l]Ordered By: Scott Sellers on 12-14-2022 Eosinophils (Bld) [#/Vol] 0.3 10*3/uL 0.0-0.45 [facility] Eosinophils/100 WBC Auto (Bl d)Ordered By: Scott Sellers on 12-14-2022 Eosinophils/100 WBC (Bld) 3.9 % . [facility] Erythrocyte distribution wid th Auto (RBC) [Ratio]Ordered By: Scott Sellers on 12-14-2022 Erythrocyte distribution width (RBC) [Ratio] 12.5 % 11.9-15.3 [facility] Estimated glomerular filtrat ion rate (GFR) non- AmericanOrdered By: Scott Sellers on 12-14-2022 GFR/1.73 sq M.predicted among non-blacks MDRD (S/P/Bld) [Vol rate/Area] 55 mL/Min [facility] Hematocrit Auto (Bld) [Volum e fraction]Ordered By: Scott Sellers on 12-14-2022 Hematocrit (Bld) [Volume fraction] 44.0 % 34.0-46.4 [facility] Hemoglobin [Mass/volume] in BloodOrdered By: Scott Sellers on 12-14-2022 Hemoglobin (Bld) [Mass/Vol] 14.7 g/dL 11.8-15.4 [facility] Leukocytes [#/volume] correc alondra for nucleated erythrocytes in Blood by Automated counOrdered By: Scott Sellers on 12-14-2022 WBC corrected for nucl RBC Auto (Bld) [#/Vol] 8.1 10*3/uL 3.8-11.6 [facility] Lymphocytes Auto (Bld) [#/Vo l]Ordered By: Scott Sellers on 12-14-2022 Lymphocytes (Bld) [#/Vol] 1.8 10*3/uL 1.00-4.8 [facility] Lymphocytes/100 WBC Auto (Bl d)Ordered By: Scott Sellers on 12-14-2022 Lymphocytes/100 WBC (Bld) 22.4 % . [facility] MCH Auto (RBC) [Entitic mass ]Ordered By: Scott Sellers on 12-14-2022 MCH (RBC) [Entitic mass] 31.6 pg 24.7-34.3 [facility] MCHC Auto (RBC) [Mass/Vol]Or dered By: Scott Sellers on 12-14-2022 MCHC (RBC) [Mass/Vol] 33.3 g/dL 32.0-35.0 [facility] MCV Auto (RBC) [Entitic vol] Ordered By: Scott Sellers on 12-14-2022 MCV (RBC) [Entitic vol] 94.8 fL 80-100 [facility] Monocytes Auto (Bld) [#/Vol] Ordered By: Scott Sellers on 12-14-2022 Monocytes (Bld) [#/Vol] 0.6 10*3/uL 0.0-0.8 [facility] Monocytes/100 WBC Auto (Bld) Ordered By: Scott Sellers on 12-14-2022 Monocytes/100 WBC (Bld) 7.2 % . [facility] Neutrophils Auto (Bld) [#/Vo l]Ordered By: Scott Sellers on 12-14-2022 Neutrophils (Bld) [#/Vol] 5.3 10*3/uL 1.8-7.7 [facility] Neutrophils/100 WBC Auto (Bl d)Ordered By: Scott Sellers on 12-14-2022 Neutrophils/100 WBC (Bld) 65.8 % . [facility] No Panel InformationOrdered By: Scott Sellers on 12-14-2022 Estimated GFR () > 60 mL/Min [facility] Comment on above: GFR estimated refere nce range: According to KDOQI guidelines, <60 ml/min/1.73m2 is sufficient to diagnose a patient with chronic kidney disease. Pharmacy Creatinine Clearance (Chem N/A [facility] Nucleated erythrocytes [Pres ence] in Blood by Automated countOrdered By: Scott Sellers on 12-14-2022 Nucleated RBC Auto Ql (Bld) 0.1 /100{WBC} 0-0.5 [facility] Platelet mean volume Auto (B ld) [Entitic vol]Ordered By: Scott Sellers on 12-14-2022 Platelet mean volume (Bld) [Entitic vol] 8.0 fL 6.3-10.7 [facility] Platelets Auto (Bld) [#/Vol] Ordered By: Scott Sellers on 12-14-2022 Platelets (Bld) [#/Vol] 220 10*3/uL 150-450 [facility] RBC Auto (Bld) [#/Vol]Ordere d By: Scott Sellers on 12-14-2022 RBC (Bld) [#/Vol] 4.65 10*6/uL 3.60-5.00 [facility] Serum or plasma anion gap de terminationOrdered By: Scott Sellers on 12-14-2022 Anion gap [Moles/Vol] 10.4 mmol/L 6.0-15.0 [facility] Serum or plasma chloride elvin surement (moles/volume)Ordered By: Scott Sellers on 12-14-2022 Chloride [Moles/Vol] 103 mmol/L 95-114 [facility] Serum or plasma glucose sudhakar urement (mass/volume)Ordered By: Scott Sellers on 12-14-2022 Glucose [Mass/Vol] 132 mg/dL 70-100 [facility] Comment on above: ADA recommended refe rence rangeRandom Glucose Reference Range is dependent on time and content of last meal. Glucose of more than 200 mg/dL in a nonstressed, ambulatory subject supports the diagnosis of Diabetes Mellitus. Serum or plasma potassium me asurement (moles/volume)Ordered By: Scott Sellers on 12-14-2022 Potassium [Moles/Vol] 4.4 mmol/L 3.5-5.1 [facility] Serum or plasma sodium measu rement (moles/volume)Ordered By: Scott Sellers on 12-14-2022 Sodium [Moles/Vol] 137 mmol/L 136-146 [facility] Urea nitrogen [Mass/volume] in Serum or PlasmaOrdered By: Scott Sellers on 12-14-2022 Urea nitrogen [Mass/Vol] 15 mg/dL 9-23 [facility] WBC Auto (Bld) [#/Vol]Ordere d By: Scott Sellers on 12-14-2022 WBC (Bld) [#/Vol] 8.1 10*3/uL 3.8-11.6 [facility] Basophils Auto (Bld) [#/Vol] Ordered By: Christiano Murillo on 11-22-2022 Basophils (Bld) [#/Vol] 0.1 10*3/uL 0.0-0.2 [facility] Basophils/100 WBC Auto (Bld) Ordered By: Christiano Murillo on 11-22-2022 Basophils/100 WBC (Bld) 0.6 % . [facility] Eosinophils Auto (Bld) [#/Vo l]Ordered By: Christiano Murillo on 11-22-2022 Eosinophils (Bld) [#/Vol] 0.3 10*3/uL 0.0-0.45 [facility] Eosinophils/100 WBC Auto (Bl d)Ordered By: Christiano Murillo on 11-22-2022 Eosinophils/100 WBC (Bld) 2.5 % . [facility] Erythrocyte distribution wid th Auto (RBC) [Ratio]Ordered By: Christiano Murillo on 11-22-2022 Erythrocyte distribution width (RBC) [Ratio] 12.4 % 11.9-15.3 [facility] Hematocrit Auto (Bld) [Volum e fraction]Ordered By: Christiano Murillo on 11-22-2022 Hematocrit (Bld) [Volume fraction] 42.4 % 34.0-46.4 [facility] Hemoglobin [Mass/volume] in BloodOrdered By: Christiano Murillo on 11-22-2022 Hemoglobin (Bld) [Mass/Vol] 14.3 g/dL 11.8-15.4 [facility] Leukocytes [#/volume] correc alondra for nucleated erythrocytes in Blood by Automated counOrdered By: Christiano Murillo on 11-22-2022 WBC corrected for nucl RBC Auto (Bld) [#/Vol] 10.1 10*3/uL 3.8-11.6 [facility] Lymphocytes Auto (Bld) [#/Vo l]Ordered By: Christiano Murillo on 11-22-2022 Lymphocytes (Bld) [#/Vol] 2.2 10*3/uL 1.00-4.8 [facility] Lymphocytes/100 WBC Auto (Bl d)Ordered By: Christiano Murillo on 11-22-2022 Lymphocytes/100 WBC (Bld) 21.8 % . [facility] MCH Auto (RBC) [Entitic mass ]Ordered By: Christiano Murillo on 11-22-2022 MCH (RBC) [Entitic mass] 32.1 pg 24.7-34.3 [facility] MCHC Auto (RBC) [Mass/Vol]Or dered By: Christiano Murillo on 11-22-2022 MCHC (RBC) [Mass/Vol] 33.8 g/dL 32.0-35.0 [facility] MCV Auto (RBC) [Entitic vol] Ordered By: Christiano Murillo on 11-22-2022 MCV (RBC) [Entitic vol] 94.9 fL 80-100 [facility] Monocytes Auto (Bld) [#/Vol] Ordered By: Christiano Murillo on 11-22-2022 Monocytes (Bld) [#/Vol] 0.8 10*3/uL 0.0-0.8 [facility] Monocytes/100 WBC Auto (Bld) Ordered By: Christiano Murillo on 11-22-2022 Monocytes/100 WBC (Bld) 7.7 % . [facility] Neutrophils Auto (Bld) [#/Vo l]Ordered By: Christiano Murillo on 11-22-2022 Neutrophils (Bld) [#/Vol] 6.8 10*3/uL 1.8-7.7 [facility] Neutrophils/100 WBC Auto (Bl d)Ordered By: Christiano Murillo on 11-22-2022 Neutrophils/100 WBC (Bld) 67.4 % . [facility] Nucleated erythrocytes [Pres ence] in Blood by Automated countOrdered By: Christiano Murillo on 11-22-2022 Nucleated RBC Auto Ql (Bld) 0.2 /100{WBC} 0-0.5 [facility] Platelet mean volume Auto (B ld) [Entitic vol]Ordered By: Christiano Murillo on 11-22-2022 Platelet mean volume (Bld) [Entitic vol] 8.3 fL 6.3-10.7 [facility] Platelets Auto (Bld) [#/Vol] Ordered By: Christiano Murillo on 11-22-2022 Platelets (Bld) [#/Vol] 254 10*3/uL 150-450 [facility] RBC Auto (Bld) [#/Vol]Ordere d By: Christiano Murillo on 11-22-2022 RBC (Bld) [#/Vol] 4.47 10*6/uL 3.60-5.00 [facility] WBC Auto (Bld) [#/Vol]Ordere d By: Christiano Murillo on 11-22-2022 WBC (Bld) [#/Vol] 10.1 10*3/uL 3.8-11.6 [facility] Activated partial thrombopla stin time (aPTT) in platelet poor plasma by coagulation aOrdered By: Delfino Goncalves on 11-12-2022 aPTT Coag (PPP) [Time] 30.7 s 25.1-36.5 [facility] Albumin [Mass/volume] in Ser um or PlasmaOrdered By: Delfino Goncalves on 11-12-2022 Albumin [Mass/Vol] 4.0 g/dL 3.2-5.5 [facility] Basophils Auto (Bld) [#/Vol] Ordered By: Delfino Goncalves on 11-12-2022 Basophils (Bld) [#/Vol] 0.1 10*3/uL 0.0-0.2 [facility] Basophils/100 WBC Auto (Bld) Ordered By: Delfino Goncalves on 11-12-2022 Basophils/100 WBC (Bld) 0.7 % . [facility] Creatinine and Glomerular fi ltration rate.predicted panel (S/P/Bld)Ordered By: Delfino Goncalves on 11-12-2022 Creatinine [Mass/Vol] 1.05 mg/dL 0.44-1.03 [facility] Eosinophils Auto (Bld) [#/Vo l]Ordered By: Delfino Goncalves on 11-12-2022 Eosinophils (Bld) [#/Vol] 0.3 10*3/uL 0.0-0.45 [facility] Eosinophils/100 WBC Auto (Bl d)Ordered By: Delfino Goncalves on 11-12-2022 Eosinophils/100 WBC (Bld) 3.5 % . [facility] Erythrocyte distribution wid th Auto (RBC) [Ratio]Ordered By: Delfino Goncalves on 11-12-2022 Erythrocyte distribution width (RBC) [Ratio] 12.5 % 11.9-15.3 [facility] Estimated glomerular filtrat ion rate (GFR) non- AmericanOrdered By: Delfino Goncalves on 11-12-2022 GFR/1.73 sq M.predicted among non-blacks MDRD (S/P/Bld) [Vol rate/Area] 52 mL/Min [facility] Globulin Calc (S) [Mass/Vol] Ordered By: Delfino Goncalves on 11-12-2022 Globulin (S) [Mass/Vol] 2.3 g/dL [facility] Hematocrit Auto (Bld) [Volum e fraction]Ordered By: Delfino Goncalves on 11-12-2022 Hematocrit (Bld) [Volume fraction] 42.0 % 34.0-46.4 [facility] Hemoglobin [Mass/volume] in BloodOrdered By: Delfino Goncalves on 11-12-2022 Hemoglobin (Bld) [Mass/Vol] 14.3 g/dL 11.8-15.4 [facility] Laboratory - Chemistry and C hemistry - challengeOrdered By: Delfino Goncalves on 11-12-2022 Magnesium [Mass/Vol] 2.0 mg/dL 1.6-2.6 [facility] Natriuretic peptide B (Bld) [Mass/Vol] 46.0 pg/mL 5-100 [facility] Laboratory - CoagulationOrde red By: Delfino Goncalves on 11-12-2022 PT Coag (PPP) [Time] 11.5 s 9.0-12.9 [facility] Leukocytes [#/volume] correc alondra for nucleated erythrocytes in Blood by Automated counOrdered By: Delfino Goncalves on 11-12-2022 WBC corrected for nucl RBC Auto (Bld) [#/Vol] 9.6 10*3/uL 3.8-11.6 [facility] Lymphocytes Auto (Bld) [#/Vo l]Ordered By: Delfino Goncalves on 11-12-2022 Lymphocytes (Bld) [#/Vol] 3.1 10*3/uL 1.00-4.8 [facility] Lymphocytes/100 WBC Auto (Bl d)Ordered By: Delfino Goncalves on 11-12-2022 Lymphocytes/100 WBC (Bld) 32.0 % . [facility] MCH Auto (RBC) [Entitic mass ]Ordered By: Delfino Goncalves on 11-12-2022 MCH (RBC) [Entitic mass] 31.8 pg 24.7-34.3 [facility] MCHC Auto (RBC) [Mass/Vol]Or dered By: Delfino Goncalves on 11-12-2022 MCHC (RBC) [Mass/Vol] 33.9 g/dL 32.0-35.0 [facility] MCV Auto (RBC) [Entitic vol] Ordered By: Delfino Goncalves on 11-12-2022 MCV (RBC) [Entitic vol] 93.8 fL 80-100 [facility] Monocyte distribution width [Entitic volume] in Blood by AutomatedOrdered By: Delfino Goncalves on 11-12-2022 Monocyte distribution width Auto (Bld) [Entitic vol] 16.25 % 0.00-20.00 [facility] Monocytes Auto (Bld) [#/Vol] Ordered By: Delfino Goncalves on 11-12-2022 Monocytes (Bld) [#/Vol] 0.7 10*3/uL 0.0-0.8 [facility] Monocytes/100 WBC Auto (Bld) Ordered By: Delfino Goncalves on 11-12-2022 Monocytes/100 WBC (Bld) 7.8 % . [facility] Neutrophils Auto (Bld) [#/Vo l]Ordered By: Delfino Goncalves on 11-12-2022 Neutrophils (Bld) [#/Vol] 5.4 10*3/uL 1.8-7.7 [facility] Neutrophils/100 WBC Auto (Bl d)Ordered By: Delfino Goncalves on 11-12-2022 Neutrophils/100 WBC (Bld) 56.0 % . [facility] No Panel InformationOrdered By: Delfino Goncalves on 11-12-2022 Estimated GFR () > 60 mL/Min [facility] Comment on above: GFR estimated refere nce range: According to KDOQI guidelines, <60 ml/min/1.73m2 is sufficient to diagnose a patient with chronic kidney disease. Pharmacy Creatinine Clearance (Chem 48.03 [facility] Nucleated erythrocytes [Pres ence] in Blood by Automated countOrdered By: Delfino Goncalves on 11-12-2022 Nucleated RBC Auto Ql (Bld) 0.2 /100{WBC} 0-0.5 [facility] Platelet mean volume Auto (B ld) [Entitic vol]Ordered By: Delfino Goncalves on 11-12-2022 Platelet mean volume (Bld) [Entitic vol] 8.3 fL 6.3-10.7 [facility] Platelet poor plasma interna tional normalized ratio (INR) by coagulation assay (relatOrdered By: Delfino Goncalves on 11-12-2022 INR Coag (PPP) [Relative time] 1.0 {INR} [facility] Comment on above: INR Therapeutic Rang e A) Pre- and Peroperative OAT started two weeks before surgery. NOT HIP SURGERY: 1.5 - 2.5 HIP SURGERY: 2 - 3B) Primary and secondary prevention of venous THROMBOSIS: 2 - 3C) Active venous thrombosis, pulmonary embolismand prevention of recurrent venous thrombosis: 2 - 3D) Prevention of arterial thromboembolismincluding patients with mechanical heart valves: 3 - 4.5 Platelets Auto (Bld) [#/Vol] Ordered By: Delfino Goncalves on 11-12-2022 Platelets (Bld) [#/Vol] 230 10*3/uL 150-450 [facility] Protein [Mass/volume] in Ser um or PlasmaOrdered By: Delfino Goncalves on 11-12-2022 Protein [Mass/Vol] 6.3 g/dL 6.1-7.9 [facility] RBC Auto (Bld) [#/Vol]Ordere d By: Delfino Goncalves on 11-12-2022 RBC (Bld) [#/Vol] 4.48 10*6/uL 3.60-5.00 [facility] Serum or plasma alanine smith otransferase measurement without P-5'-P (enzymatic activiOrdered By: Delfino Goncalves on 11-12-2022 ALT No additional P-5'-P [Catalytic activity/Vol] 32 U/L 10-60 [facility] Serum or plasma albumin/glob ulin mass ratioOrdered By: Delfino Goncalves on 11-12-2022 Albumin/Globulin [Mass ratio] 1.7 {ratio} [facility] Serum or plasma alkaline lalo sphatase measurement (enzymatic activity/volume)Ordered By: Delfino Goncalves on 11-12-2022 ALP [Catalytic activity/Vol] 59 U/L 32-92 [facility] Serum or plasma anion gap de terminationOrdered By: Delfino Goncalves on 11-12-2022 Anion gap [Moles/Vol] 12.1 mmol/L 6.0-15.0 [facility] Serum or plasma aspartate am inotransferase measurement (enzymatic activity/volume)Ordered By: Delfino Goncalves on 11-12-2022 AST [Catalytic activity/Vol] 27 U/L 10-42 [facility] Serum or plasma calcium sudhakar urement (mass/volume)Ordered By: Delfino Goncalves on 11-12-2022 Calcium [Mass/Vol] 9.1 mg/dL 8.2-10.2 [facility] Serum or plasma chloride elvin surement (moles/volume)Ordered By: Delfino Goncalves on 11-12-2022 Chloride [Moles/Vol] 104 mmol/L 95-114 [facility] Serum or plasma glucose sudhakar urement (mass/volume)Ordered By: Delfino Goncalves on 11-12-2022 Glucose [Mass/Vol] 149 mg/dL 70-100 [facility] Comment on above: ADA recommended refe rence rangeRandom Glucose Reference Range is dependent on time and content of last meal. Glucose of more than 200 mg/dL in a nonstressed, ambulatory subject supports the diagnosis of Diabetes Mellitus. Serum or plasma potassium me asurement (moles/volume)Ordered By: Delfino Goncalves on 11-12-2022 Potassium [Moles/Vol] 3.6 mmol/L 3.5-5.1 [facility] Serum or plasma sodium measu rement (moles/volume)Ordered By: Delfino Goncalves on 11-12-2022 Sodium [Moles/Vol] 135 mmol/L 136-146 [facility] Serum or plasma total biliru bin measurement (mass/volume)Ordered By: Delfino Goncalves on 11-12-2022 Bilirubin [Mass/Vol] 0.7 mg/dL 0.3-1.2 [facility] Serum or plasma total carbon dioxide measurement (moles/volume)Ordered By: Delfino Goncalves on 11-12-2022 CO2 [Moles/Vol] 22.5 mmol/L 22.0-30.0 [facility] Serum or plasma urea nitroge n measurement (mass/volume)Ordered By: Delfino Goncalves on 11-12-2022 Urea nitrogen [Mass/Vol] 15 mg/dL 9- [facility] Troponin I.cardiac [Mass/vol ume] in Serum or Plasma by High sensitivity methodOrdered By: Delfino Goncalves on 11-12-2022 Troponin I.cardiac High sensitivity method [Mass/Vol] 5 pg/mL 0-15 [facility] WBC Auto (Bld) [#/Vol]Ordere d By: Delfino Goncalves on 11-12-2022 WBC (Bld) [#/Vol] 9.6 10*3/uL 3.8-11.6 [facility] COVID CepheidOrdered By: Cheyenne Goncalves on 11-11-2022 SARS-CoV-2 (COVID-19) Ab IA Ql Negative Negative [facility] Comment on above: This is a duplicate [employer] Xpert Xpress CoV-2/Flu/RSV Plus RNA by RT-PCR result to be used for statistical tracking purpose only. SARS-CoV-2 (COVID-19) RNA COBY+probe Ql (Unsp spec) [facility] Basophils Auto (Bld) [#/Vol] Ordered By: Sharmaine Fletcher on 06-29-2022 Basophils (Bld) [#/Vol] 0.0 10*3/uL 0.0-0.2 [facility] Basophils/100 WBC Auto (Bld) Ordered By: Sharmaine Fletcher on 06-29-2022 Basophils/100 WBC (Bld) 0.6 % . [facility] Bilirubin Test strip Ql (U)O rdered By: Sharmaine Fletcher on 06-29-2022 Bilirubin Ql (U) Negative Negative [facility] Blood hemoglobin measurement (mass/volume)Ordered By: Sharmaine Fletcher on 06-29-2022 Hemoglobin (Bld) [Mass/Vol] 14.4 g/dL 11.8-15.4 [facility] Blood leukocytes automated c ount (number/volume)Ordered By: Sharmaine Fletcher on 06-29-2022 WBC (Bld) [#/Vol] 7.4 10*3/uL 4.5-11.0 [facility] Body fluid albumin measureme nt (mass/volume)Ordered By: Sharmaine Fletcher on 06-29-2022 Albumin (Body fld) [Mass/Vol] 3.9 g/dL 3.2-5.5 [facility] Cholesterol [Mass/volume] in Serum or PlasmaOrdered By: Sharmaine Fletcher on 06-29-2022 Cholesterol [Mass/Vol] 153 mg/dL 140-200 [facility] Comment on above: Chol less than 200 m g/dl low risk Chol 201-239 mg/dl borderline risk Chol 240 mg/dl and greater high risk Cholesterol in LDL Calc [Mas s/Vol]Ordered By: Sharmaine Fletcher on 06-29-2022 Cholesterol in LDL [Mass/Vol] 60 mg/dL 0-100 [facility] Comment on above: LDL ATP III CLASSIFI CATION LDL less than 100 mg/dL Optimal LDL 100-129 mg/dL Near or above optimal LDL 130-159 mg/dL Borderline high LDL 160-189 mg/dL High LDL greater than 189 mg/dL Very high Cholesterol in VLDL Calc [Ma ss/Vol]Ordered By: Sharmaine Fletcher on 06-29-2022 Cholesterol in VLDL [Mass/Vol] 37 mg/dL [facility] Color Auto (U)Ordered By: Sa henrique Fletcher on 06-29-2022 Color (U) Yellow Yellow [facility] Creatinine [Mass/volume] in UrineOrdered By: Sharmaine Fletcher on 06-29-2022 Creatinine (U) [Mass/Vol] 93.7 mg/dL [facility] Comment on above: No reference range e stablished Creatinine and Glomerular fi ltration rate.predicted panel (S/P/Bld)Ordered By: Sharmaine Fletcher on 06-29-2022 Creatinine [Mass/Vol] 1.14 mg/dL 0.44-1.03 [facility] Eosinophils Auto (Bld) [#/Vo l]Ordered By: Sharmaine Fletcher on 06-29-2022 Eosinophils (Bld) [#/Vol] 0.4 10*3/uL 0.0-0.45 [facility] Eosinophils/100 WBC Auto (Bl d)Ordered By: Sharmaine Fletcher on 06-29-2022 Eosinophils/100 WBC (Bld) 5.4 % . [facility] Erythrocyte distribution wid th Auto (RBC) [Ratio]Ordered By: Sharmaine Fletcher on 06-29-2022 Erythrocyte distribution width (RBC) [Ratio] 12.8 % 11.9-15.3 [facility] Estimated glomerular filtrat ion rate (GFR) non- AmericanOrdered By: Sharmaine Fletcher on 06-29-2022 GFR/1.73 sq M.predicted among non-blacks MDRD (S/P/Bld) [Vol rate/Area] 47 mL/Min [facility] Globulin Calc (S) [Mass/Vol] Ordered By: Sharmaine Fletcher on 06-29-2022 Globulin (S) [Mass/Vol] 2.5 g/dL [facility] Hematocrit Auto (Bld) [Volum e fraction]Ordered By: Sharmaine Fletcher on 06-29-2022 Hematocrit (Bld) [Volume fraction] 42.9 % 34.0-46.4 [facility] Ketones Auto test strip (U) [Mass/Vol]Ordered By: Sharmaine Fletcher on 06-29-2022 Ketones (U) [Mass/Vol] Negative Negative [facility] Laboratory - Hematology and Cell countsOrdered By: Sharmaine Fletcher on 06-29-2022 Nucleated RBC/100 WBC (Bld) [Ratio] 0.1 % 0-0.5 [facility] Lymphocytes Auto (Bld) [#/Vo l]Ordered By: Sharmaine Fletcher on 06-29-2022 Lymphocytes (Bld) [#/Vol] 2.4 10*3/uL 1.00-4.8 [facility] Lymphocytes/100 WBC Auto (Bl d)Ordered By: Sharmaine Fletcher on 06-29-2022 Lymphocytes/100 WBC (Bld) 32.0 % . [facility] MCH Auto (RBC) [Entitic mass ]Ordered By: Sharmaine Fletcher on 06-29-2022 MCH (RBC) [Entitic mass] 32.2 pg 24.7-34.3 [facility] MCHC Auto (RBC) [Mass/Vol]Or dered By: Sharmaine Fletcher on 06-29-2022 MCHC (RBC) [Mass/Vol] 33.5 g/dL 32.0-35.0 [facility] MCV Auto (RBC) [Entitic vol] Ordered By: Sharmaine Fletcher on 06-29-2022 MCV (RBC) [Entitic vol] 96.0 fL 80-100 [facility] Monocytes Auto (Bld) [#/Vol] Ordered By: Sharmaine Fletcher on 06-29-2022 Monocytes (Bld) [#/Vol] 0.6 10*3/uL 0.0-0.8 [facility] Monocytes/100 WBC Auto (Bld) Ordered By: Sharmaine Fletcher on 06-29-2022 Monocytes/100 WBC (Bld) 8.0 % . [facility] Neutrophils Auto (Bld) [#/Vo l]Ordered By: Sharmaine Fletcher on 06-29-2022 Neutrophils (Bld) [#/Vol] 4.0 10*3/uL 1.8-7.7 [facility] Neutrophils/100 WBC Auto (Bl d)Ordered By: Sharmaine Fletcher on 06-29-2022 Neutrophils/100 WBC (Bld) 54.0 % . [facility] Nitrite Test strip Ql (U)Ord ered By: Sharmaine Fletcher on 06-29-2022 Nitrite Ql (U) Negative Negative [facility] No Panel InformationOrdered By: Sharmaine Fletcher on 06-29-2022 Estimated GFR () 57 mL/Min [facility] Comment on above: GFR estimated refere nce range: According to KDOQI guidelines, <60 ml/min/1.73m2 is sufficient to diagnose a patient with chronic kidney disease. Pharmacy Creatinine Clearance (Chem N/A [facility] Platelet mean volume Auto (B ld) [Entitic vol]Ordered By: Sharmaine Fletcher on 06-29-2022 Platelet mean volume (Bld) [Entitic vol] 8.6 fL 6.3-10.7 [facility] Platelets Auto (Bld) [#/Vol] Ordered By: Sharmaine Fletcher on 06-29-2022 Platelets (Bld) [#/Vol] 287 10*3/uL 150-450 [facility] Protein Auto test strip (U) [Mass/Vol]Ordered By: Sharmaine Fletcher on 06-29-2022 Protein (U) [Mass/Vol] Negative Negative [facility] Protein [Mass/volume] in Ser um or PlasmaOrdered By: Sharmaine Fletcher on 06-29-2022 Protein [Mass/Vol] 6.4 g/dL 6.1-7.9 [facility] RBC Auto (Bld) [#/Vol]Ordere d By: Sharmaine Fletcher on 06-29-2022 RBC (Bld) [#/Vol] 4.47 10*6/uL 3.60-5.00 [facility] Serum or plasma alanine smith otransferase measurement without P-5'-P (enzymatic activiOrdered By: Sharmaine Fletcher on 06-29-2022 ALT No additional P-5'-P [Catalytic activity/Vol] 23 U/L 10-60 [facility] Serum or plasma albumin/glob ulin mass ratioOrdered By: Sharmaine Fletcher on 06-29-2022 Albumin/Globulin [Mass ratio] 1.6 {ratio} [facility] Serum or plasma alkaline lalo sphatase measurement (enzymatic activity/volume)Ordered By: Sharmaine Fletcher on 06-29-2022 ALP [Catalytic activity/Vol] 54 U/L 32-92 [facility] Serum or plasma anion gap de terminationOrdered By: Sharmaine Fletcher on 06-29-2022 Anion gap [Moles/Vol] 14.6 mmol/L 6.0-15.0 [facility] Serum or plasma aspartate am inotransferase measurement (enzymatic activity/volume)Ordered By: Sharmaine Fletcher on 06-29-2022 AST [Catalytic activity/Vol] 22 U/L 10-42 [facility] Serum or plasma calcium sudhakar urement (mass/volume)Ordered By: Sharmaine Fletcher on 06-29-2022 Calcium [Mass/Vol] 9.3 mg/dL 8.2-10.2 [facility] Serum or plasma chloride elvin surement (moles/volume)Ordered By: Sharmaine Guajardo on 06-29-2022 Chloride [Moles/Vol] 101 mmol/L 95-114 [facility] Serum or plasma glucose sudhakar urement (mass/volume)Ordered By: Sharmaine Fletcher on 06-29-2022 Glucose [Mass/Vol] 136 mg/dL 70-100 [facility] Comment on above: ADA recommended refe rence range Random Glucose Reference Range is dependent on time and content of last meal. Glucose of more than 200 mg/dL in a nonstressed, ambulatory subject supports the diagnosis of Diabetes Mellitus. Serum or plasma high density lipoprotein (HDL) cholesterol measurementOrdered By: Sharmaine Fletcher on 06-29-2022 Cholesterol in HDL [Mass/Vol] 55 mg/dL 35-85 [facility] Comment on above: HDL CHOL ATP-III CLA SSIFICATION Cardiovascular Risk HDL > or equal to 60 mg/dL LOW HDL < 40 mg/dL HIGH Serum or plasma potassium me asurement (moles/volume)Ordered By: Sharmaine Guajardo on 06-29-2022 Potassium [Moles/Vol] 5.3 mmol/L 3.5-5.1 [facility] Serum or plasma sodium measu rement (moles/volume)Ordered By: Sharmaine Fletcher on 06-29-2022 Sodium [Moles/Vol] 138 mmol/L 136-146 [facility] Serum or plasma total biliru bin measurement (mass/volume)Ordered By: Sharmaine Fletcher on 09-07-2022 Bilirubin [Mass/Vol] 1.2 mg/dL 0.3-1.2 [facility] Serum or plasma total carbon dioxide measurement (moles/volume)Ordered By: Sharmaine Fletcher on 06-29-2022 CO2 [Moles/Vol] 27.7 mmol/L 22.0-30.0 [facility] Serum or plasma total choles terol/high density lipoprotein (HDL) cholesterol mass ratOrdered By: Sharmaine Fletcher on 06-29-2022 Cholesterol.total/Chol esterol in HDL [Mass ratio] 2.8 {ratio} <5.0 [facility] Serum or plasma urea nitroge n measurement (mass/volume)Ordered By: Sharmaine Fletcher on 06-29-2022 Urea nitrogen [Mass/Vol] 15 mg/dL 07-15 [facility] Specific gravity Auto test s trip (U) [Rel density]Ordered By: Sharmaine Guajardo on 06-29-2022 Specific gravity (U) [Rel density] 1.010 1.001-1.030 [facility] Triglyceride [Mass/volume] i n Serum or PlasmaOrdered By: Sharmaine Fletcher on 06-29-2022 Triglyceride [Mass/Vol] 188 mg/dL 35-149 [facility] Comment on above: TRIG ATP III CLASSIF ICATION TRIG less than 150 mg/dL Normal TRIG 150-199 mg/dL Borderline high TRIG 200-500 mg/dL High TRIG greater than 500 mg/dL Very high Standard traceable to the Center for Disease Conrtrol and Prevention (CDC) test method. Urine clarity by refractomet ry automatedOrdered By: Sharmaine Fletcher on 06-29-2022 Clarity Refractometry automated (U) Clear Clear [facility] Urine glucose measurement by automated test strip (mass/volume)Ordered By: Sharmaine Fletcher on 06-29-2022 Glucose Auto test strip (U) [Mass/Vol] Normal mg/dL Normal [facility] Urine hemoglobin detection b y automated test stripOrdered By: Sharmaine Guajardo on 06-29-2022 Hemoglobin Auto test strip Ql (U) Negative Negative [facility] Urine leukocyte esterase det ection by automated test stripOrdered By: Sharmaine Fletcher on 06-29-2022 Leukocyte esterase Auto test strip Ql (U) Negative Negative [facility] Urine microalbumin measureme nt with detection limit of 20 mg/L or less (mass/volume)Ordered By: Sharmaine Fletcher on 06-29-2022 Albumin DL <= 20 mg/L (U) [Mass/Vol] mg/dL 0.0-1.8 [facility] Urine microalbumin/creatinin e mass ratioOrdered By: Sharmaine Fletcher on 06-29-2022 Albumin/Creatinine DL <= 20 mg/L (U) [Mass ratio] TNP [facility] Comment on above: Test not performed Urobilinogen Auto test strip (U) [Mass/Vol]Ordered By: Sharmaine Fletcher on 06-29-2022 Urobilinogen (U) [Mass/Vol] Normal mg/dL Normal [facility] pH Auto test strip (U)Ordere d By: Sharmaine Fletcher on 06-29-2022 pH (U) 5.5 [pH] 5.0-9.0 [facility] 24 hour urine sodium measure ment (moles/time)Ordered By: Jazmin Antonio on 06-10-2022 Sodium (24H U) [Moles/Time] 95 mmol/24 40-220 [facility] 24 hour urine uric acid sudhakar urement (mass/time)Ordered By: Jazmin Antonio on 06-10-2022 Urate (24H U) [Mass/Time] 274.5 mg/24 hr 142.3-713.2 [facility] Comment on above: Performed at: [address] [id number] [employer] Operator: Bebo Gibbons PhD, Phone: [phone] CT biopsyOrdered By: Jazmin Antonio on 06-10-2022 CT biopsy 24 Hours [facility] Calcium [Mass/time] in 24 ho ur UrineOrdered By: Jazmin Antonio on 06-10-2022 Calcium (24H U) [Mass/Time] 174 mg/24 hr 0-320 [facility] Calcium [Mass/volume] in 24 hour UrineOrdered By: Jazmin Antonio on 06-10-2022 Calcium (24H U) [Mass/Vol] 5.5 mg/dL Not Estab. [facility] Creatinine [Mass/volume] in UrineOrdered By: Jazmin Antonio on 06-10-2022 Creatinine (U) [Mass/Vol] 32.63 mg/dL [facility] Comment on above: No reference range e stablished Creatinine and Glomerular fi ltration rate.predicted panel (S/P/Bld)Ordered By: Jazmin Antonio on 06-10-2022 Creatinine [Mass/Vol] 1.16 mg/dL 0.44-1.03 [facility] Estimated glomerular filtrat ion rate (GFR) non- AmericanOrdered By: Jazmin Antonio on 06-10-2022 GFR/1.73 sq M.predicted among non-blacks MDRD (S/P/Bld) [Vol rate/Area] 46 mL/Min [facility] Magnesium [Mass/time] in 24 hour UrineOrdered By: Jazmin Antonio on 06-10-2022 Magnesium (24H U) [Mass/Time] 113.6 mg/24 hr 12.0-293.0 [facility] Magnesium [Mass/volume] in U rineOrdered By: Jazmin Antonio on 06-10-2022 Magnesium (U) [Mass/Vol] 3.6 mg/dL Not Estab. [facility] No Panel InformationOrdered By: Jazmin Antonio on 06-10-2022 Estimated GFR () 56 mL/Min [facility] Comment on above: GFR estimated refere nce range: According to KDOQI guidelines, <60 ml/min/1.73m2 is sufficient to diagnose a patient with chronic kidney disease. Pharmacy Creatinine Clearance (Chem N/A [facility] Urine Citric Acid 32 mg/L Undefined [facility] Urine Citric Acid 24 Hour 101 mg/24 hr [id number] [facility] Comment on above: This test was develo ped and its performance characteristics determined by [facility]. It has not been cleared or approved by the Food and Drug Administration. Performed at: - [facility] [id number] [employer] Operator: Nir Adame MD, Phone: [phone] Urine Creatinine 24 Hour 1.03 g/24 hr 0.80-1.89 [facility] Oxalate [Mass/time] in 24 ho ur UrineOrdered By: Jazmin Antonio on 06-10-2022 Oxalate (24H U) [Mass/Time] 16 mg/24 hr 4- [facility] Comment on above: Performed at: [address] [id number] [employer] Operator: Nir Adame MD, Phone: [phone] Oxalate [Mass/volume] in Uri neOrdered By: Jazmin Antonio on 06-10-2022 Oxalate (U) [Mass/Vol] 5 mg/L Undefined Fi [facility] Phosphate [Mass/time] in 24 hour UrineOrdered By: Jazmin Antonio on 06-10-2022 Phosphate (24H U) [Mass/Time] 350 mg/24 hr [phone] [facility] Phosphate [Mass/volume] in U rineOrdered By: Jazmin Antonio on 06-10-2022 Phosphate (U) [Mass/Vol] 11.1 mg/dL Not Estab. [facility] Serum or plasma calcium sudhakar urement (mass/volume)Ordered By: Jazmin Antonio on 06-10-2022 Calcium [Mass/Vol] 9.7 mg/dL 8.2-10.2 [facility] Serum or plasma chloride elvin surement (moles/volume)Ordered By: Jazmin Antonio on 06-10-2022 Chloride [Moles/Vol] 101 mmol/L 95-114 [facility] Serum or plasma intact parat hyroid hormone measurement (mass/volume)Ordered By: Jazmin Antonio on 06-10-2022 Parathyrin.intact [Mass/Vol] 39.0 pg/mL 12-88 [facility] Serum or plasma potassium me asurement (moles/volume)Ordered By: Jazmin Antonio on 06-10-2022 Potassium [Moles/Vol] 4.9 mmol/L 3.5-5.1 [facility] Serum or plasma sodium measu rement (moles/volume)Ordered By: Jazmin Antonio on 06-10-2022 Sodium [Moles/Vol] 139 mmol/L 136-146 [facility] Serum or plasma total carbon dioxide measurement (moles/volume)Ordered By: Jazmin Antonio on 06-10-2022 CO2 [Moles/Vol] 26.6 mmol/L 22.0-30.0 [facility] Serum or plasma urea nitroge n measurement (mass/volume)Ordered By: Jazmin Antonio on 06-10-2022 Urea nitrogen [Mass/Vol] 13 mg/dL 9-23 [facility] Serum or plasma uric acid me asurement (mass/volume)Ordered By: Jazmin Antonio on 06-10-2022 Urate [Mass/Vol] 6.8 mg/dL 2.6-7.2 [facility] Urine sodium measurement (mo les/volume)Ordered By: Jazmin Antonio on 06-10-2022 Sodium (U) [Moles/Vol] 30.0 mmol/L F [facility] Comment on above: No reference range e stablished Urine uric acid measurement (mass/volume)Ordered By: Jazmin Antonio on 06-10-2022 Urate (U) [Mass/Vol] 8.7 mg/dL Not Estab. [facility] Urine volume measurementOrde red By: Jazmin Antonio on 06-10-2022 Specimen volume (U) 3155 ml [facility] Creatinine and Glomerular fi ltration rate.predicted panel (S/P/Bld)Ordered By: Sharmaine Fletcher on 05-31-2022 Creatinine [Mass/Vol] 1.06 mg/dL 0.44-1.03 [facility] Estimated glomerular filtrat ion rate (GFR) non- AmericanOrdered By: Sharmaine Fletcher on 05-31-2022 GFR/1.73 sq M.predicted among non-blacks MDRD (S/P/Bld) [Vol rate/Area] 51 mL/Min [facility] No Panel InformationOrdered By: Sharmaine Fletcher on 05-31-2022 Estimated GFR () > 60 mL/Min [facility] Comment on above: GFR estimated refere nce range: According to KDOQI guidelines, <60 ml/min/1.73m2 is sufficient to diagnose a patient with chronic kidney disease. Pharmacy Creatinine Clearance (Chem N/A [facility] Serum or plasma calcium sudhakar urement (mass/volume)Ordered By: Sharmaine Fletcher on 05-31-2022 Calcium [Mass/Vol] 9.1 mg/dL 8.2-10.2 [facility] Serum or plasma chloride elvin surement (moles/volume)Ordered By: Sharmaine Guajardo on 05-31-2022 Chloride [Moles/Vol] 101 mmol/L 95-114 [facility] Serum or plasma glucose sudhakar urement (mass/volume)Ordered By: Sharmaine Fletcher on 05-31-2022 Glucose [Mass/Vol] 135 mg/dL 70-100 [facility] Comment on above: ADA recommended refe rence range Random Glucose Reference Range is dependent on time and content of last meal. Glucose of more than 200 mg/dL in a nonstressed, ambulatory subject supports the diagnosis of Diabetes Mellitus. Serum or plasma potassium me asurement (moles/volume)Ordered By: Sharmaine Guajardo on 05-31-2022 Potassium [Moles/Vol] 4.4 mmol/L 3.5-5.1 [facility] Serum or plasma sodium measu rement (moles/volume)Ordered By: Sharmaine Fletcher on 05-31-2022 Sodium [Moles/Vol] 140 mmol/L 136-146 [facility] Serum or plasma total carbon dioxide measurement (moles/volume)Ordered By: Sharmaine Fletcher on 05-31-2022 CO2 [Moles/Vol] 26.5 mmol/L 22.0-30.0 [facility] Serum or plasma urea nitroge n measurement (mass/volume)Ordered By: Sharmaine Fletcher on 05-31-2022 Urea nitrogen [Mass/Vol] 14 mg/dL 9-23 [facility] Basophils Auto (Bld) [#/Vol] Ordered By: Sharmaine Fletcher on 05-25-2022 Basophils (Bld) [#/Vol] 0.0 10*3/uL 0.0-0.2 [facility] Basophils/100 WBC Auto (Bld) Ordered By: Sharmaine Fletcher on 05-25-2022 Basophils/100 WBC (Bld) 0.6 % . [facility] Blood hemoglobin measurement (mass/volume)Ordered By: Sharmaine Fletcher on 05-25-2022 Hemoglobin (Bld) [Mass/Vol] 14.6 g/dL 11.8-15.4 [facility] Blood leukocytes automated c ount (number/volume)Ordered By: Sharmaine Fletcher on 05-25-2022 WBC (Bld) [#/Vol] 7.5 10*3/uL 4.5-11.0 [facility] Body fluid albumin measureme nt (mass/volume)Ordered By: Sharmaine Fletcher on 05-25-2022 Albumin (Body fld) [Mass/Vol] 4.0 g/dL 3.2-5.5 [facility] Creatinine and Glomerular fi ltration rate.predicted panel (S/P/Bld)Ordered By: Sharmaine Fletcher on 05-25-2022 Creatinine [Mass/Vol] 1.16 mg/dL 0.44-1.03 [facility] Eosinophils Auto (Bld) [#/Vo l]Ordered By: Sharmaine Fletcher on 05-25-2022 Eosinophils (Bld) [#/Vol] 0.3 10*3/uL 0.0-0.45 [facility] Eosinophils/100 WBC Auto (Bl d)Ordered By: Sharmaine Fletcher on 05-25-2022 Eosinophils/100 WBC (Bld) 3.6 % . [facility] Erythrocyte distribution wid th Auto (RBC) [Ratio]Ordered By: Sharmaine Fletcher on 05-25-2022 Erythrocyte distribution width (RBC) [Ratio] 12.9 % 11.9-15.3 [facility] Estimated glomerular filtrat ion rate (GFR) non- AmericanOrdered By: Sharmaine Fletcher on 05-25-2022 GFR/1.73 sq M.predicted among non-blacks MDRD (S/P/Bld) [Vol rate/Area] 46 mL/Min [facility] Globulin Calc (S) [Mass/Vol] Ordered By: Sharmaine Fletcher on 05-25-2022 Globulin (S) [Mass/Vol] 2.4 g/dL [facility] Hematocrit Auto (Bld) [Volum e fraction]Ordered By: Sharmaine Fletcher on 05-25-2022 Hematocrit (Bld) [Volume fraction] 43.9 % 34.0-46.4 [facility] Laboratory - Chemistry and C hemistry - challengeOrdered By: Sharmaine Fletcher on 05-25-2022 Cobalamin (Vitamin B12) [Mass/Vol] 1974 pg/mL 180-914 [facility] Laboratory - Hematology and Cell countsOrdered By: Sharmaine Fletcher on 05-25-2022 Nucleated RBC/100 WBC (Bld) [Ratio] 0.1 % 0-0.5 [facility] Lymphocytes Auto (Bld) [#/Vo l]Ordered By: Sharmaine Fletcher on 05-25-2022 Lymphocytes (Bld) [#/Vol] 1.7 10*3/uL 1.00-4.8 [facility] Lymphocytes/100 WBC Auto (Bl d)Ordered By: Sharmaine Fletcher on 05-25-2022 Lymphocytes/100 WBC (Bld) 23.1 % . [facility] MCH Auto (RBC) [Entitic mass ]Ordered By: Sharmaine Fletcher on 05-25-2022 MCH (RBC) [Entitic mass] 32.1 pg 24.7-34.3 [facility] MCHC Auto (RBC) [Mass/Vol]Or dered By: Sharmaine Fletcher on 05-25-2022 MCHC (RBC) [Mass/Vol] 33.4 g/dL 32.0-35.0 [facility] MCV Auto (RBC) [Entitic vol] Ordered By: Sharmaine Fletcher on 05-25-2022 MCV (RBC) [Entitic vol] 96.0 fL 80-100 [facility] Monocytes Auto (Bld) [#/Vol] Ordered By: Sharmaine Fletcher on 05-25-2022 Monocytes (Bld) [#/Vol] 0.6 10*3/uL 0.0-0.8 [facility] Monocytes/100 WBC Auto (Bld) Ordered By: Sharmaine Fletcher on 05-25-2022 Monocytes/100 WBC (Bld) 8.2 % . [facility] Neutrophils Auto (Bld) [#/Vo l]Ordered By: Sharmaine Fletcher on 05-25-2022 Neutrophils (Bld) [#/Vol] 4.8 10*3/uL 1.8-7.7 [facility] Neutrophils/100 WBC Auto (Bl d)Ordered By: Sharmaine Fletcher on 05-25-2022 Neutrophils/100 WBC (Bld) 64.5 % . [facility] No Panel InformationOrdered By: Sharmaine Fletcher on 05-25-2022 Estimated GFR () 56 mL/Min [facility] Comment on above: GFR estimated refere nce range: According to KDOQI guidelines, <60 ml/min/1.73m2 is sufficient to diagnose a patient with chronic kidney disease. Pharmacy Creatinine Clearance (Chem N/A [facility] Platelet mean volume Auto (B ld) [Entitic vol]Ordered By: Sharmaine Fletcher on 05-25-2022 Platelet mean volume (Bld) [Entitic vol] 8.7 fL 6.3-10.7 [facility] Platelets Auto (Bld) [#/Vol] Ordered By: Sharmaine Fletcher on 05-25-2022 Platelets (Bld) [#/Vol] 255 10*3/uL 150-450 [facility] Protein [Mass/volume] in Ser um or PlasmaOrdered By: Sharmaine Fletcher on 05-25-2022 Protein [Mass/Vol] 6.4 g/dL 6.1-7.9 [facility] RBC Auto (Bld) [#/Vol]Ordere d By: Sharmaine Fletcher on 05-25-2022 RBC (Bld) [#/Vol] 4.57 10*6/uL 3.60-5.00 [facility] Serum or plasma alanine smith otransferase measurement without P-5'-P (enzymatic activiOrdered By: Sharmaine Fletcher on 05-25-2022 ALT No additional P-5'-P [Catalytic activity/Vol] 23 U/L 10-60 [facility] Serum or plasma albumin/glob ulin mass ratioOrdered By: Sharmaine Fletcher on 05-25-2022 Albumin/Globulin [Mass ratio] 1.7 {ratio} [facility] Serum or plasma alkaline lalo sphatase measurement (enzymatic activity/volume)Ordered By: Sharmaine Fletcher on 05-25-2022 ALP [Catalytic activity/Vol] 53 U/L 32-92 [facility] Serum or plasma aspartate am inotransferase measurement (enzymatic activity/volume)Ordered By: Sharmaine Fletcher on 05-25-2022 AST [Catalytic activity/Vol] 20 U/L 10-42 [facility] Serum or plasma calcium sudhakar urement (mass/volume)Ordered By: Sharmaine Fletcher on 05-25-2022 Calcium [Mass/Vol] 9.7 mg/dL 8.2-10.2 [facility] Serum or plasma chloride elvin surement (moles/volume)Ordered By: Sharmaine Guajardo on 05-25-2022 Chloride [Moles/Vol] 98 mmol/L 95-114 [facility] Serum or plasma glucose sudhakar urement (mass/volume)Ordered By: Sharmaine Fletcher on 05-25-2022 Glucose [Mass/Vol] 131 mg/dL 70-100 [facility] Comment on above: ADA recommended refe rence range Random Glucose Reference Range is dependent on time and content of last meal. Glucose of more than 200 mg/dL in a nonstressed, ambulatory subject supports the diagnosis of Diabetes Mellitus. Serum or plasma potassium me asurement (moles/volume)Ordered By: Sharmaine Guajardo on 05-25-2022 Potassium [Moles/Vol] 5.2 mmol/L 3.5-5.1 [facility] Serum or plasma sodium measu rement (moles/volume)Ordered By: Sharmaine Fletcher on 05-25-2022 Sodium [Moles/Vol] 138 mmol/L 136-146 [facility] Serum or plasma total biliru bin measurement (mass/volume)Ordered By: Sharmaine Fletcher on 05-25-2022 Bilirubin [Mass/Vol] 1.3 mg/dL 0.3-1.2 [facility] Comment on above: Samples from patient s who have taken Naproxen have shown spurious elevation in Total Bilirubin levels. A metabolite of Naproxen, O-desmethylnaproxen, has been shown to interfere with the Jendradik-Grof method for measuring Total Bilirubin. Serum or plasma total carbon dioxide measurement (moles/volume)Ordered By: Sharmaine Fletcher on 05-25-2022 CO2 [Moles/Vol] 27.9 mmol/L 22.0-30.0 [facility] Serum or plasma urea nitroge n measurement (mass/volume)Ordered By: Sharmaine Fletcher on 05-25-2022 Urea nitrogen [Mass/Vol] 19 mg/dL 9-23 [facility] TSH DL <= 0.005 mIU/L QnOrde red By: Sharmaine Fletcher on 05-25-2022 TSH Qn 4.24 m[IU]/L 0.45-5.33 [facility] SCREENING MAMMOGRAM W/RICHARD, BILATERAL*on 02-21-2022 SCREENING MAMMOGRAM W/RICHARD, BILATERAL* CLINICAL HISTORY: Screening Mammogram COMPARISON: [facility] from 2011 TECHNIQUE: 2D and 3D mammogram imaging of both breasts was performed. RESULT: DENSITY: Heterogeneously dense, which may obscure small masses. There is no suspicious mass, asymmetry, architectural distortion, or calcification. No significant change since the prior mammograms. IMPRESSION: BIRADS 1 : NEGATIVE, NORMAL INTERVAL FOLLOW UP FOLLOW UP: 12 months DENSITY: Heterogeneously dense MAMMOGRAPHY IS VERY IMPORTANT TO YOUR HEALTH. THE CURRENT [employer] OF RADIOLOG[employer] AND NATIONAL COMPREHENSIVE CANCER NETWORK GUIDELINES RECOMMENDS ANNUAL MAMMOGRAPHY BEGINNING AT AGE 42 THIS FACILITY USES A REMINDER SYSTEM TO ENSURE ALL PATIENTS RECEIVE REMINDER NOTIFICATIONS AT THE APPROPRIATE TIME BASED ON THE RECOMMENDATIONS OF THIS EXAM. Board Certified Radiologist. Accredited by the ACR and FDA. Report reported and signed by Nehemias Anderson on 02/21/2022 1050 Normal [facility] XR KUB 1 VIEWon 12-10-2020 XR KUB 1 VIEW EXAMINATION: XR KUB 1 VIEW HISTORY: Kidney stone COMPARISON: 09/17/2019 FINDINGS: KIDNEY/URETER - RIGHT: No visible renal or ureteral calcifications. KIDNEY/URETER - LEFT: No visible renal or ureteral calcifications. PELVIS: No visible ureteral calcifications. Any visible calcifications favor phleboliths. BOWEL: No abnormal dilation or deviation. BONES: No acute abnormality. Moderate degenerative changes OTHER: Negative. No abnormal gaseous collections. IMPRESSION: No definite urinary tract calculi Electronically authenticated by: TL JORDAN Date: 2020-12-10 09:32 Normal [facility] Vital Signs Date Time Vital Sign Value Performing Clinician Facility 05-07-2024 08:28-0400 Body temperature 97.8 [degF] DO Sharmaine Damian-Warsaw Work Phone: [facility] 05-07-2024 08:28-0400 Diastolic blood pressure 70 mm[Hg] DO Sharmaine Damian-Warsaw Work Phone: [facility] 05-07-2024 08:28-0400 Heart rate 62 /min DO Sharmaine Damian-Warsaw Work Phone: [facility] 05-07-2024 08:28-0400 Respiratory rate 18 /min DO Sharmaine Damian-Warsaw Work Phone: [facility] 05-07-2024 08:28-0400 SaO2% (BldA) [Mass fraction] 97 % DO Sharmaine Damian-Warsaw Work Phone: [facility] 05-07-2024 08:28-0400 Systolic blood pressure 114 mm[Hg] DO Sharmaine Damian-Warsaw Work Phone: [facility] 05-07-2024 05:19-0400 Body weight 70 kg DO Sharmaine Damian-Warsaw Work Phone: [facility] 05-04-2024 21:45-0400 Body height 157.48 cm DO Sharmaine Damian-Warsaw Work Phone: [facility] 05-04-2024 20:19-0400 Diastolic blood pressure 72 mm[Hg] DO Sharmaine Damian-Warsaw Work Phone: [facility] 05-04-2024 20:19-0400 Heart rate 62 /min DO Sharmaine Damian-Warsaw Work Phone: [facility] 05-04-2024 20:19-0400 Respiratory rate 18 /min DO Sharmaine Damian-Warsaw Work Phone: [facility] 05-04-2024 20:19-0400 SaO2% (BldA) [Mass fraction] 98 % DO Sharmaine Damian-Warsaw Work Phone: [facility] 05-04-2024 20:19-0400 Systolic blood pressure 161 mm[Hg] DO Sharmaine Damian-Warsaw Work Phone: [facility] 05-04-2024 16:14-0400 Body temperature 98.2 [degF] DO Sharmaine Damian-Warsaw Work Phone: [facility] 05-04-2024 16:10-0400 Body height 157.48 cm DO Sharmaine Damian-Warsaw Work Phone: [facility] 05-04-2024 16:10-0400 Body weight 69.4 kg DO Sharmaine Damian-Warsaw Work Phone: [facility] 04-09-2024 11:14-0400 Body height 157.48 cm DO Sharmaine Damian-Warsaw Work Phone: [facility] 04-09-2024 11:14-0400 Body mass index (BMI) [Ratio] 27.4 kg/m2 DO Sharmaine Damian-Warsaw Work Phone: [facility] 04-09-2024 11:14-0400 Body temperature 97.6 [degF] DO Sharmaine Damian-Warsaw Work Phone: [facility] 04-09-2024 11:14-0400 Body weight 68.03 kg DO Sharmaine Damian-Warsaw Work Phone: [facility] 04-09-2024 11:14-0400 Diastolic blood pressure 66 mm[Hg] DO Sharmaine Damian-Warsaw Work Phone: [facility] 04-09-2024 11:14-0400 Heart rate 64 /min DO Sharmaine Damian-Warsaw Work Phone: [facility] 04-09-2024 11:14-0400 Respiratory rate 16 /min DO Sharmaine Damian-Warsaw Work Phone: [facility] 04-09-2024 11:14-0400 SaO2% (BldA) [Mass fraction] 96 % DO Sharmaine Damian-Warsaw Work Phone: [facility] 04-09-2024 11:14-0400 Systolic blood pressure 116 mm[Hg] DO Sharmaine Damian-Warsaw Work Phone: [facility] 03-28-2024 10:46-0400 Blood Pressure Location CARLA LE[facility] 03-28-2024 10:46-0400 Body temperature 96.8 [degF] CARLA LEIGH [facility] 03-28-2024 10:46-0400 Diastolic blood pressure 68 mm[Hg] CARLA LEIGH [facility] 03-28-2024 10:46-0400 Heart rate 64 /min [facility] 03-28-2024 10:46-0400 Respiratory rate 18 /min [facility] 03-28-2024 10:46-0400 Systolic blood pressure 120 mm[Hg] [facility] 12-01-2023 10:22-0500 Body mass index (BMI) [Ratio] 28.23 kg/m2 Sharmaine Damian-Warsaw DO Work Phone: [facility] 12-01-2023 10:22-0500 Body weight 67.77 kg Sharmaine Damian-Warsaw DO Work Phone: [facility] 12-01-2023 10:22-0500 Diastolic blood pressure 78 mm[Hg] Sharmaine Damian-Warsaw DO Work Phone: [facility] 12-01-2023 10:22-0500 Heart rate 62 /min Sharmaine Damian-Warsaw DO Work Phone: [facility] 12-01-2023 10:22-0500 SaO2% (BldA) [Mass fraction] 98 % Sharmaine Damian-Warsaw DO Work Phone: [facility] 12-01-2023 10:22-0500 Systolic blood pressure 124 mm[Hg] Sharmaine Damian-Warsaw DO Work Phone: [facility] 10-10-2023 12:30-0500 Body height 157.48 cm Carissa Dias Other [employer] Other 10-10-2023 12:30-0500 Body mass index (BMI) [Ratio] 28.16 kg/m2 Carissa Dias Other [employer] Other 10-10-2023 12:30-0500 Body temperature 97.6 [degF] Carissa Dias Other [employer] Other 10-10-2023 12:30-0500 Body weight 69.85 kg Carissa Dias Other [employer] Other 10-10-2023 12:30-0500 Diastolic blood pressure 68 mm[Hg] Carissa Dias Other [employer] Other 10-10-2023 12:30-0500 SaO2% (BldA) [Mass fraction] 98 % Carissa Dias Other [employer] Other 10-10-2023 12:30-0500 Systolic blood pressure 116 mm[Hg] Carissa Dias Other [employer] Other 04-10-2023 10:45-0400 Body height 157.48 cm Carissa Dias Other [employer] Other 04-10-2023 10:45-0400 Body mass index (BMI) [Ratio] 29.63 kg/m2 Carissa Dias Other [employer] Other 04-10-2023 10:45-0400 Body temperature 97.3 [degF] Carissa Dias Other [employer] Other 04-10-2023 10:45-0400 Body weight 73.48 kg Carissa Dias Other [employer] Other 04-10-2023 10:45-0400 Diastolic blood pressure 62 mm[Hg] Carissa Dias Other [employer] Other 04-10-2023 10:45-0400 SaO2% (BldA) [Mass fraction] 98 % Carissa Dias Other [employer] Other 04-10-2023 10:45-0400 Systolic blood pressure 110 mm[Hg] Carissa Petesriramo Other [employer] Other 03-31-2023 09:18-0400 Diastolic blood pressure 66 mm[Hg] DO Sharmaine Damian-Warsaw Work Phone: [facility] 03-31-2023 09:18-0400 Heart rate 58 /min DO Sharmaine Damian-Warsaw Work Phone: [facility] 03-31-2023 09:18-0400 Respiratory rate 16 /min DO Sharmaine Damian-Warsaw Work Phone: [facility] 03-31-2023 09:18-0400 SaO2% (BldA) [Mass fraction] 98 % DO Sharmaine Damian-Warsaw Work Phone: [facility] 03-31-2023 09:18-0400 Systolic blood pressure 128 mm[Hg] DO Sharmaine Damian-Warsaw Work Phone: [facility] 03-31-2023 07:34-0400 Body height 157.48 cm DO Sharmaine Damian-Warsaw Work Phone: [facility] 03-31-2023 07:34-0400 Body temperature 98.2 [degF] DO Sharmaine Damian-Warsaw Work Phone: [facility] 03-31-2023 07:34-0400 Body weight 74.84 kg DO Sharmaine Damian-Warsaw Work Phone: [facility] 03-28-2023 12:54-0400 Blood Pressure Location [facility] 03-28-2023 12:54-0400 Diastolic blood pressure 74 mm[Hg] CARLA LE[facility] 03-28-2023 12:54-0400 Heart rate 67 /min [facility] 03-28-2023 12:54-0400 Respiratory rate 16 /min CARLA ABRAHAM [facility] 03-28-2023 12:54-0400 Systolic blood pressure 132 mm[Hg] CARLA ABRAHAM [facility] 01-16-2023 12:15-0400 Body height 157.48 cm Carissa Dias Other [employer] Other 01-16-2023 12:15-0400 Body mass index (BMI) [Ratio] 29.63 kg/m2 Carissa Dias Other [employer] Other 01-16-2023 12:15-0400 Body temperature 97.3 [degF] Carissa Dias Other [employer] Other 01-16-2023 12:15-0400 Body weight 73.48 kg Carissa Dias Other [employer] Other 01-16-2023 12:15-0400 Diastolic blood pressure 74 mm[Hg] Carissa Dias Other [employer] Other 01-16-2023 12:15-0400 SaO2% (BldA) [Mass fraction] 96 % Carissa Dias Other [employer] Other 01-16-2023 12:15-0400 Systolic blood pressure 116 mm[Hg] Carissa Dias Other [employer] Other 12-23-2022 08:00-0500 Inhaled oxygen flow rate 2 L/min DO Sharmaine Damian-Warsaw Work Phone: [facility] 12-23-2022 05:34-0500 Body weight 73 kg DO Sharmaine Damian-Warsaw Work Phone: [facility] 12-23-2022 04:00-0500 Body temperature 98 [degF] DO Sharmaine Damian-Warsaw Work Phone: [facility] 12-23-2022 04:00-0500 Diastolic blood pressure 53 mm[Hg] DO Sharmaine Damian-Warsaw Work Phone: [facility] 12-23-2022 04:00-0500 Heart rate 70 /min DO Sharmaine Damian-Warsaw Work Phone: [facility] 12-23-2022 04:00-0500 Respiratory rate 14 /min DO Sharmaine Damian-Warsaw Work Phone: [facility] 12-23-2022 04:00-0500 SaO2% (BldA) [Mass fraction] 95 % DO Sharmaine Damian-Warsaw Work Phone: [facility] 12-23-2022 04:00-0500 Systolic blood pressure 102 mm[Hg] DO Sharmaine Damian-Warsaw Work Phone: [facility] 12-22-2022 11:48-0500 Body height 157.48 cm DO Sharmaine Damian-Warsaw Work Phone: [facility] 12-22-2022 11:48-0500 Body mass index (BMI) [Ratio] 28.9 kg/m2 DO Sharmaine Damian-Warsaw Work Phone: [facility] 11-12-2022 04:08-0500 Diastolic blood pressure 89 mm[Hg] DO Sharmaine Damian-Warsaw Work Phone: [facility] 11-12-2022 04:08-0500 Heart rate 89 /min DO Sharmaine Damian-Warsaw Work Phone: [facility] 01-21-2023 04:08-0500 Respiratory rate 16 /min DO Sharmaine Damian-Warsaw Work Phone: [facility] 11-12-2022 04:08-0500 SaO2% (BldA) [Mass fraction] 96 % DO Sharmaine Damian-Warsaw Work Phone: [facility] 11-12-2022 04:08-0500 Systolic blood pressure 175 mm[Hg] DO Sharmaine Damian-Warsaw Work Phone: [facility] 11-11-2022 23:42-0500 Body height 157.48 cm DO Sharmaine Damian-Warsaw Work Phone: [facility] 11-11-2022 23:42-0500 Body weight 77.4 kg DO Sharmaine Damian-Warsaw Work Phone: [facility] 11-11-2022 23:41-0500 Body temperature 98 [degF] DO Sharmaine Damian-Warsaw Work Phone: [facility] 06-22-2022 09:44-0400 Body height 157.48 cm DO Sharmaine Damian-Warsaw Work Phone: [facility] 06-22-2022 09:44-0400 Body weight 74.38 kg DO Sharmaine Damian-Warsaw Work Phone: [facility] 05-31-2022 13:30-0400 Body height 157.48 cm Carissa Dias Other [employer] [facility] Other 05-31-2022 13:30-0400 Body mass index (BMI) [Ratio] 29.63 kg/m2 Carissa Dias Other [employer] Other 05-31-2022 13:30-0400 Body temperature 97.1 [degF] Carisas Dias Other [employer] Other 05-31-2022 13:30-0400 Body weight 73.48 kg Carissa Dias Other [employer] Other 05-31-2022 13:30-0400 Diastolic blood pressure 64 mm[Hg] Carissa Dias Other [employer] Other 05-31-2022 13:30-0400 SaO2% (BldA) [Mass fraction] 97 % Carissa Dias Other [employer] Other 05-31-2022 13:30-0400 Systolic blood pressure 112 mm[Hg] Carissa Dias Other [employer] Other Encounters Encounter Date Encounter Type Care Provider Facility Start: 05-08-2024 End: 05-08-2024 ambulatory SHARMAINE D DAMIAN-EMERY Not Available Start: 05-04-2024 End: 05-07-2024 ambulatory Sharmaine Damian-Warsaw Facility:[facility] Start: 05-04-2024 End: 05-07-2024 Evaluation and management of inpatient DO Sharmaine Damian-Warsaw Work Phone: [facility] Work Phone: Start: 05-04-2024 End: 05-07-2024 observation encounter DO Sharmaine Damian-Warsaw Work Phone: [facility] Work Phone: Start: 04-09-2024 End: 04-09-2024 ambulatory DO Sharmaine Damian-Warsaw Work Phone: [facility] Work Phone: Start: 04-09-2024 End: 04-09-2024 Patient encounter procedure DO Sharmaine Damian-Warsaw Work Phone: [facility] Work Phone: Start: 03-28-2024 End: 03-28-2024 ambulatory SHALONDA ABRAHAM Facility:[facility] Start: 03-28-2024 End: 03-28-2024 Patient encounter procedure CARLA ABRAHAM [facility] Start: 12-01-2023 End: 12-01-2023 Office outpatient visit 25 minutes Sharmaine Lopez Damian-Warsaw DO Work Phone: [facility] Comment on above: Type 2 diabetes federico itus with stage 3a chronic kidney disease, without long-term current use of insulin (HCC) (CMS/HCC) (Primary Dx); Stage 3a chronic kidney disease (HCC) (CMS/HCC); Hyperlipidemia LDL goal <100 ([facility]/HCC); Essential hypertension ([facility]/HCC); BMI 28.0-28.9,adult; Viral upper respiratory tract infection Start: 12-01-2023 End: 12-01-2023 ambulatory SHARMAINE DAMIAN-HAYDEEY Not Available Start: 11-09-2023 End: 11-09-2023 ambulatory GARCIA HERNDON Not Available Start: 10-10-2023 End: 10-10-2023 Patient encounter procedure DO Sharmaine Damian-Warsaw Work Phone: [facility]-Ultrasound [facility] Start: 10-10-2023 End: 10-10-2023 ambulatory DO Sharmaine Damian-Warsaw Work Phone: [facility] Work Phone: Start: 09-20-2023 End: 09-20-2023 ambulatory SHARMAINE JUDDAVER-EMERY Not Available Start: 09-18-2023 End: 09-18-2023 Patient encounter procedure DO Sharmaine Damian-Warsaw Work Phone: [facility]-Lab [facility] Start: 09-18-2023 End: 09-18-2023 ambulatory DO Sharmaine Damian-Warsaw Work Phone: [facility] Work Phone: Start: 09-05-2023 End: 09-05-2023 ambulatory ESTELA Rogers BRIELLE Not Available Start: 04-10-2023 End: 04-10-2023 Patient encounter procedure Carissa Dias [facility] Surgery Start: 04-10-2023 End: 04-10-2023 ambulatory DO Sharmaine Juddaver-Warsaw Work Phone: [facility] Work Phone: Start: 03-31-2023 End: 03-31-2023 Admission to same day surgery center DO Sharmaine Damian-Warsaw Work Phone: [facility]-Digestive Health Work Phone: Start: 03-29-2023 End: 03-29-2023 Patient encounter procedure Jazmin ANTONIO [facility] Start: 03-28-2023 End: 03-28-2023 Lab Drop off CARLA Marianne ABRAHAM [facility] Start: 03-28-2023 End: 03-28-2023 Patient encounter procedure CARLA HERNANDEZRY [facility] Start: 01-16-2023 End: 01-16-2023 ambulatory Carissa Dias Other [employer] Other Start: 01-16-2023 Patient encounter procedure Carissa Dias [facility] Surgery Start: 12-27-2022 End: 12-27-2022 ambulatory Scott Sellers Other [employer] Other Start: 12-27-2022 [address] Scott Sellers [facility] Surgery Start: 12-22-2022 End: 12-23-2022 Evaluation and management of inpatient DO Sharmaine Damian-Warsaw Work Phone: [facility] Work Phone: Start: 12-14-2022 End: 12-14-2022 ambulatory DO Sharmaine Damian-Warsaw Work Phone: [facility] Work Phone: Start: 12-14-2022 End: 12-14-2022 Patient encounter procedure DO Sharmaine Damian-Warsaw Work Phone: [facility]-Pre-Surgical Testing Work Phone: Start: 12-07-2022 End: 12-07-2022 ambulatory Scott Sellers Other [employer] Other Start: 12-07-2022 Telephone encounter Scott Sellers [facility] Start: 12-05-2022 End: 12-05-2022 ambulatory DO Sharmaine Damian-Warsaw Work Phone: [facility] Work Phone: Start: 12-05-2022 End: 12-05-2022 Patient encounter procedure DO Sharmaine Damian-Warsaw Work Phone: [facility]-Ultras[facility] Start: 11-22-2022 End: 11-22-2022 ambulatory DO Sharmaine Damian-Warsaw Work Phone: [facility] Work Phone: Start: 11-22-2022 End: 11-22-2022 Patient encounter procedure DO Sharmaine Damian-Warsaw Work Phone: [facility]-Lab [facility] [place] Work Phone: Start: 11-15-2022 End: 11-15-2022 ambulatory Imad Asaad Other [employer] Other Start: 11-15-2022 Telephone encounter Zeus Dolan [facility] Start: 11-11-2022 End: 11-12-2022 Emergency department patient visit DO Sharmaine Damian-Warsaw Work Phone: [facility]-Emergency Room Work Phone: Start: 07-20-2022 End: 07-20-2022 ambulatory Carissa Dias Other [employer] Other Start: 07-20-2022 Telephone encounter Carissa Dias [facility] Start: 06-29-2022 End: 06-29-2022 Patient encounter procedure DO Sharmaine Damian-Warsaw Work Phone: [facility]-Lab [facility] Start: 06-22-2022 End: 06-22-2022 Patient encounter procedure DO Sharmaine Damian-Warsaw Work Phone: [facility]-MRI [facility] [place] Start: 06-10-2022 End: 06-10-2022 Patient encounter procedure DO Sharmaine Damian-Warsaw Work Phone: [facility]-Lab [facility] [place] Start: 06-03-2022 End: 06-03-2022 Patient encounter procedure DO Sharmaine Damian-Warsaw Work Phone: [facility]-Ultrasound [facility] Start: 05-31-2022 End: 05-31-2022 ambulatory Carissa Dias Other [employer] [facility] [employer] Other Start: 05-31-2022 End: 05-31-2022 Patient encounter procedure Carissa Dias [facility] Start: 05-25-2022 End: 05-25-2022 Patient encounter procedure DO Sharmaine Damian-Warsaw Work Phone: [facility]-Lab [facility] Start: 12-10-2020 End: 12-11-2020 Patient encounter procedure JAZMIN ANTONIO Facility: Procedures Date Procedure Procedure Detail Performing Clinician Start: 05-06-2024 MRI of head DO Sharmaine Fletcher Work Phone: Start: 05-04-2024 CT angiography of head DO Sharmaine Fletcher Work Phone: Start: 05-04-2024 CT angiography of ne ck vessels DO Sharmaine Fletcher Work Phone: Start: 05-04-2024 CT of head without contrast DO Sharmaine Fletcher Work Phone: Start: 05-04-2024 SARS-CoV-2, Influenz a & RSV (PCR) DO Sharmaine Fletcher Work Phone: Start: 05-04-2024 Urine culture DO Sharmaine Fletcher Work Phone: Start: 04-09-2024 Doppler ultrasonogra phy of bilateral carotid arteries DO Sharmaine Fletcher Work Phone: Start: 12-01-2023 Hemoglobin glycosylated a1c Sharmaine Fletcher DO Work Phone: Start: 11-09-2023 Mammography Sharmaine Jesnen david-Bennett DO Work Phone: Start: 03-31-2023 Screening colonoscopy D O Sharmaine Fletcher Work Phone: Start: 03-31-2023 Colonoscopy Sharmaine Jensen david-Bennett DO Work Phone: Start: 12-22-2022 Insertion of carotid artery stent DO Sharmaine Fletcher Work Phone: Start: 12-05-2022 Doppler ultrasonogra phy of bilateral carotid arteries DO Sharmaine Fletcher Work Phone: Start: 11-11-2022 Plain chest X-ray DO Sa ndra Chance Work Phone: Start: 11-11-2022 SARS-CoV-2, Influenz a & RSV (PCR) DO Sharmaine Fletcher Work Phone: Start: 10-23-2022 Endarterectomy CARLA ABRAHAM Start: 06-22-2022 MRI of head DO Sharmaine Fletcher Work Phone: Start: 06-03-2022 Doppler ultrasonogra phy of bilateral carotid arteries DO Sharmaine Fletcher Work Phone: Start: 06-30-2016 Cystourethroscopy wi th dilation of urethral stricture CARLA ABRAHAM Comment on above: RT ureteroscopy Start: 11-20-2008 Cystoscopic removal of ureteric stent CARLA ABRAHAM Start: 11-12-2008 Extracorporeal shock wave lithotripsy of calculus of kidney CARLA ABRAHAM Comment on above: RT Start: 08-18-2004 Extracorporeal shock wave lithotripsy of calculus of kidney CARLA ABRAHAM Comment on above: RT retro/ureteropyel ogram/RT ESWL/double J stent placement Hysterectomy CARLA ABRAHAM Screening for malign ant neoplasm of colon Carissa Dias Other Plan of Treatment Date Care Activity Detail Author Start: 11-15-2032 Screening for malignant neoplasm of colon [facility] Start: 11-23-2024 Glaucoma screening Diabetes: Retinopathy Screening [facility] Start: 11-09-2024 Screening for malignant neoplasm of breast Mammogram [facility] Start: 09-20-2024 Medicare Annual Wellness (AWV) Medicare Annual Wellness (AWV) [facility] Start: 05-08-2024 End: 05-08-2024 Patient encounter procedure 05/08/2024 9:45 AM EDT Office Visit [facility] [address] [place] [id number] Sharmaine Fletcher D, DO [address] [place] [address] [facility] Start: 05-06-2024 [facility] Start: 05-05-2024 [facility] Start: 05-04-2024 MRI of head MR head/brain wo [facility] Start: 05-04-2024 Referral to neurologist [facility] Start: 05-04-2024 [facility] Start: 05-04-2024 Hospital admission [facility] Start: 05-04-2024 Telemedicine consultation with patient [facility] Start: 05-04-2024 Bacteria identified in Blood by Culture [facility] Start: 05-04-2024 Bacteria identified in Urine by Culture [facility] Start: 05-04-2024 Blood culture for bacteria, including anaerobic screen Blood Culture [facility] Start: 02-29-2024 Hemoglobin A1c measurement Diabetes: Hemoglobin A1C [facility] Start: 10-10-2023 Doppler ultrasonography of bilateral carotid arteries US carotid doppler [facility] Start: 10-10-2023 US.doppler Carotid arteries - [facility] Start: 04-10-2023 Doppler ultrasonography of bilateral carotid arteries US carotid doppler [facility] Start: 04-10-2023 US.doppler Carotid arteries - [facility] Start: 03-31-2023 [facility] Start: 12-23-2022 [facility] Start: 12-22-2022 Hospital admission [facility] Start: 12-22-2022 Sleep disorder assessment [facility] Start: 12-05-2022 Doppler ultrasonography of bilateral carotid arteries US carotid doppler [facility] Start: 12-05-2022 US.doppler Carotid arteries - [facility] Start: 11-11-2022 Plain chest X-ray XR chest 1V portable [facility] Start: 11-11-2022 XR Chest Single view [facility] Start: 06-22-2022 MRI of head MR head/brain wo con [facility] Start: 06-22-2022 End: 06-22-2022 Patient encounter procedure Departed [facility] [place] Start: 06-10-2022 End: 06-10-2022 Patient encounter procedure Departed [facility] [place] Start: 06-03-2022 Doppler ultrasonography of bilateral carotid arteries US carotid doppler BI [facility] Start: 06-03-2022 End: 06-03-2022 Patient encounter procedure Departed Clinical [facility]-Ultrasound [facility] [place] Start: 1950 Screening for malignant neoplasm of colon [facility] Glucose measurement estimated from glycated hemoglobin [facility] Patient Education [facility] Work Phone: Patient referral [facility] Work Phone: US.doppler Carotid arteries - bilateral [facility] Immunizations Immunization Date Immunization Notes Care Provider Fa víctor 08-28-2023 influenza virus vacc ine, unspecified formulation CARLA LEIGH [facility] 08-28-2023 Influenza, High-dose Seasonal, Quadrivalent, Preservative Free Sharmaine Damian-Warsaw DO Work Phone: [facility] 06-30-2022 influenza virus vacc ine, unspecified formulation CARLA LEIGH [facility] 06-30-2022 influenza, high dose seasonal, preservative-free Sharmaine Damian-Warsaw DO Work Phone: [facility] 09-03-2021 COVID-19 mRNA, Comir falguni (Pfizer) DO Sharmaine Damian-Warsaw Work Phone: [facility] 09-01-2021 SARS-CoV-2 (COVID-19 ) Ad26 vaccine, recombinant CARLA LEIGH [facility] 08-13-2021 COVID-19 mRNA, Comir falguni (Pfizer) DO Sharmaine Damian-Warsaw Work Phone: [facility] 07-28-2021 SARS-CoV-2 (COVID-19 ) Ad26 vaccine, recombinant CARLA LEIGH [facility] 07-15-2021 influenza virus vacc ine, unspecified formulation CARLA LEIGH [facility] 07-15-2021 influenza, high dose seasonal, preservative-free Sharmaine Damian-Warsaw DO Work Phone: [facility] 06-30-2021 influenza virus vacc ine, unspecified formulation CARLA LEIGH [facility] 07-31-2020 influenza virus vacc ine, unspecified formulation CARLA LEIGH [facility] 07-31-2020 pneumococcal polysaccharide vaccine, 23 valent CARLA LEIGH [facility] 07-31-2020 Seasonal, trivalent, recombinant, injectable influenza vaccine, preservative free Sharmaine Damian-Warsaw DO Work Phone: [facility] 07-06-2020 influenza virus vacc ine, unspecified formulation CARLA LEIGH [facility] 12-21-2019 zoster vaccine recombinant CARLA LEIGH [facility] 10-17-2019 zoster vaccine recombinant CARLA LEIGH [facility] 07-01-2019 influenza virus vacc ine, live, attenuated, for intranasal use CARLA LEIGH [facility] 01-28-2019 pneumococcal conjuga te vaccine, 13 valent CARLA LEIGH [facility] 08-10-2018 influenza virus vacc ine, unspecified formulation CARLA LEIGH [facility] 11-02-2017 influenza virus vacc ine, unspecified formulation CARLA ABRAHAM [facility] 01-20-2016 influenza, seasonal, injectable, preservative free Sharmaine Fletcher DO Work Phone: [facility] 01-20-2016 varicella virus vaccine ERIC MOREIRA LEIGH [facility] 07-21-2015 influenza virus vacc ine, unspecified formulation CARLA ABRAHAM [facility] Payers Date Payer Category Payer Self-pay [id number] 2022 Unknown [employer] [id number] 2022-Present [address] [place] [address] [id number] 2017 Medicare MEDICARE MEDICAR E PART B [id number] 2017-Present [address] [address] [place] [address] Medicare [id number] 2017 Medicare [id number] 1959 Medicare [id number] 1959 Unknown [id number] 1950 Unknown [id number] 1950 Unknown [id number] 1950 Unknown [id number] 9 1952 Unknown [id number] 9 1952 Unknown [id number] 9 1952 Unknown [id number] 9 1952 Unknown [id number] 9 Unknown O [id number] Unknown [id number] Unknown [id number] Unknown [id number] Unknown [id number] Social History Date Type Detail Facility Unknown if ever smoked [facility] Work Phone: Start: 09-20-2023 End: 12-01-2023 Sex Assigned At [facility] Start: 02-08-2021 End: 05-05-2024 Tobacco smoking status NHIS Never smoked tobacco (finding) [facility] Start: 1950 Sex Assigned At Female F [facility] Tobacco smoking status Never [facility] Start: 06-04-2023 Tobacco use and exposure Smokeless tobacco non-user [facility] Start: 12-01-2023 Alcohol intake Lifetime non-d louie (finding) [facility] Start: 09-20-2023 End: 12-01-2023 History of Social function [facility] Start: 06-04-2023 Alcohol Comment caffeine: 1 cu p of coffee a day [facility] Start: 1950 Sex Assigned At Not on file [facility] Medical Equipment Procedure Code Equipment Code Equipment Original Text Equipment Identifier Dates Transcarotid artery revascularization (TCAR) Bare-metal carotid artery stent ()[id number] FDA Start: 12-22-2022 Goals Date Patient Goal Desired Activity /State Functional Status Date Assessment Result Facility 05-07-2024 Functional status Patient at Baseline [facility] Work Phone: 03-28-2024 Functional Status N/A [facility] 03-28-2023 Functional Status N/A [facility] 12-23-2022 Functional status Patient at Baseline [facility] Work Phone: Mental Status Date Assessment Result Facility 05-07-2024 Cognitive function Cognitive Sta tus Patient at Baseline [facility] Work Phone: 12-23-2022 Cognitive function Cognitive Sta tus Patient at Baseline [facility] Work Phone: Clinical Notes 05-31-2022 to 05-06-2024 Note Date & Type Note Facility 05-06-2024 Discharge summary Note Date/Time May 06, 2024 6:37pm [facility] [address] [place] [address] Discharge Summary Signed Patient: Sarah Jimenez MR#: [id number] : 1950 Acct:[id number] Age/Sex: 74 / F Adm Date: 4 Loc: Room: [address] [place] [address]: Kameron Pires MD Copies to: MD Sharmaine Willett,DO~ Providers Date of Discharge: 05/06/24 Discharging Provider: Kameron Pires Primary Care Provider: Sharmaine Fletcher Consults: 05/04/24 16:02 Consult to Telemedicine Stat Comment: Reason for Consult: stroke alert/standby 05/04/24 21:11 Consult to Neurology Routine Comment: Consulting Provider: Julian Diaz Reason For Exam: right hand weakness and numbness Has Provider Been Notified: Yes Date of Notification: 05/05/24 Time of Notification: 07:51 Discharge Diagnosis (1) Transient cerebral ischemia: (2) Hypercholesteremia: (3) Hypertension: (4) Arthritis: (5) Accelerated hypertension: (6) Carotid stenosis, bilateral: (7) Poisoning by vitamins, accidental (unintentional), initial encounter: Final Diagnosis Final Discharge Diagnosis: TIA Summary Hospital Course Hospital course: This is a 74-year-old female with past medical history of TIA presented with an episode of right arm numbness, incoordination and weakness. CT scan of the brain did not reveal any evidence of acute infarct or hemorrhage. CT angiogram revealed a patent left carotid artery stent and a mild atherosclerotic disease in the right internal carotid artery. MRI of the brain showed no acute findingsand symptoms resolved within 24 hours. Neurology was consulted who recommended aspirin and Plavix for 21 days followed by Plavix only daily then after and follow-up with a neurologist outpatient. Time Spent with Patient Time spent providing/coordinating discharge services (# min): 46 Discharge Plan Discharge Plan Patient Disposition: Home Activity: No Activity Restriction Diet: Low-Sodium and Low-Cholesterol Instructions: Transient Ischemic Attack (DC), Know your Meds Prescriptions: New clopidogrel 75 mg Tablet 75 mg PO DAILY 90 Days Qty: 90 1RF hydrochlorothiazide 25 mg Tablet 25 mg PO DAILY 60 Days Qty: 60 1RF Continued acetaminophen 500 mg Tablet 1,000 mg PO BID PRN (Reason: Pain) cholecalciferol (vitamin D3) [Vitamin D3] 25 mcg (1,000 unit) Tablet,Chewable 25 mcg PO DAILY Multivitamin Women 50 Plus 8 mg iron-400 mcg-300 mcg Tablet 1 tab PO DAILY metoprolol succinate 100 mg tablet extended release 24 hr 100 mg PO DAILY Patient Comments: take 1 and 1/2 tablets by mouth once daily escitalopram oxalate 10 mg tablet 10 mg PO DAILY Patient Comments: take 1 tablet by mouth once daily atorvastatin 80 mg Tablet 80 mg PO QPM 30 Days Qty: 30 0RF aspirin [Children's Aspirin] 81 mg Tablet,Chewable 81 mg PO DAILY 30 Days Qty: 30 0RF amlodipine 5 mg tablet 5 mg PO DAILY Qty: 30 0RF umary 850 mg 1 tab PO DAILY Follow Up: [facility] [place] [Outside] (Their office is currently unavailable. Please call to schedule a post hospital appointment.) Sharmaine Fletcher, [Primary Care Provider] - 05/13/24 10:00 am (Post hospital appointment. Please call to reschedule if needed.) Exam Physical Exam Vital Signs: Temp Pulse Resp BP Pulse Ox O2 Del Method 98.0 F 65 17 118/78 94 L Room Air 05/06/24 16:00 05/06/24 16:00 05/06/24 16:00 05/06/24 16:00 05/06/24 16:00 05/06/24 16:00 Narrative: GEN: Awake, alert, oriented x 3. Lungs: Clear to auscultation bilaterally, no wheezing, no crackles. Heart: Regular rate and rhythm, no murmurs, rubs, or gallops. Abdomen: Soft, normal bowel sounds, no rigidity, guarding, or acute peritoneal signs. Extremities: No swelling or cords in the calves bilaterally, no edema in the ankles bilaterally. Bruise in the right elbow. Neuro: Moves all 4 extremities extremely without no focal or lateralizing deficits. Diagnostic Studies Completed and Pending Studies Pending studies at discharge: 05/04/24 17:33 Blood Culture Stat 05/05/24 06:02 A1C with Estimated Average Glu [CHEM] IN AM Preliminary micro results at discharge 05/04/24 17:33 Blood Culture - Preliminary Blood - Left Hand No Growth 2 Days 05/04/24 17:33 Blood Culture - Preliminary Blood - Left Antecubital No Growth 2 Days Documented By: Kameron Pires MD 05/06/241834 Signed By: <Electronically signed by Kameron Pires MD> 05/06/24 1842 [facility] Work Phone: 1(441) 914-662307-15-2024 Progress note Author Kameron Pires [facility] May 06, 2024 5:02pm Note Date/Time May 06, 2024 5:02 pm [facility] [address] [place] [address] Hospitalist Progress Note Signed Patient: Sarah Jimenez MR#: [id number] : 1950 Acct:[id number] Age/Sex: 74 / F Adm Date: 4 Loc: Room: [address] [place] [address] Type: ADM INOo Attending Dr: Kameron Pires MD Copies to: ~ Date of Service: 05/06/2024 Subjective Subjective Narrative: Patient is feeling well today and her symptoms has resolved with no weakness or numbness or tingling in her upper extremity. MRI of the brain was done and the result was unremarkable. Echo is pending. Exam Physical Exam Vital Signs: Temp Pulse Resp BP Pulse Ox O2 Del Method 98.2 F 59 L 18 120/83 94 L Room Air 05/06/24 12:00 05/06/24 12:00 05/06/24 12:00 05/06/24 12:00 05/06/24 12:00 05/06/24 08:00 Narrative: GEN: Awake, alert, oriented x 3. Lungs: Clear to auscultation bilaterally, no wheezing, no crackles. Heart: Regular rate and rhythm, no murmurs, rubs, or gallops. Abdomen: Soft, normal bowel sounds, no rigidity, guarding, or acute peritoneal signs. Extremities: No swelling or cords in the calves bilaterally, no edema in the ankles bilaterally. Bruise in the right elbow. Neuro: Moves all 4 extremities extremely without no focal or lateralizing deficits. Objective Lab Results 05/05/24 06:02 05/05/24 06:02 Microbiology Results Microbiology 05/04/24 16:31 Clean Void Midstream Urine Culture - Final 75,000 colonies/ml mixed bacterial skin contaminants 2 Days 05/04/24 17:33 Blood - Left Hand Blood Culture - Preliminary No Growth 1 Day 05/04/24 17:33 Blood - Left Antecubital Blood Culture - Preliminary No Growth 1 Day Meds Allergies and Active Meds Allergies No Known Drug Allergies Allergy (Unknown, Verified 05/04/24 16:10) Unknown Reaction Active Meds: Active Medications Generic Name Dose Route Start Last Admin Trade Name Rafael PRN Reason Stop Dose Admin Acetaminophen 1,000 mg 05/04/24 21:10 05/05/24 21:47 Acetaminophen 500 Mg Tablet PO 05/04/25 21:09 1,000 mg BID PRN Administration Pain Amlodipine Besylate 5 mg 05/05/24 21:00 05/05/24 21:47 Amlodipine 5 Mg Tablet PO 05/05/25 20:59 5 mg QPM DARLEEN Administration Aspirin 81 mg 05/05/24 09:00 05/06/24 08:44 Aspirin 81 Mg Tab.Chew PO 05/05/25 08:59 81 mg DAILY DARLEEN Administration Atorvastatin Calcium 80 mg 05/05/24 21:00 05/05/24 21:47 Atorvastatin 80 Mg Tablet PO 05/05/25 20:59 80 mg QPM DARLEEN Administration Clopidogrel Bisulfate 75 mg 05/05/24 09:00 05/06/24 08:44 Clopidogrel Bisulfate 75 Mg Tablet PO 05/05/25 08:59 75 mg DAILY DARLEEN Administration Enoxaparin Sodium 40 mg 05/05/24 10:00 05/06/24 09:27 Enoxaparin 40 Mg/0.4 Ml Syringe SUBCUT 05/05/25 09:59 40 mg DAILY@10 DARLEEN Administration Escitalopram Oxalate 10 mg 05/05/24 09:00 05/06/24 08:44 Escitalopram 10 Mg Tablet PO 05/05/25 08:59 10 mg DAILY DARLEEN Administration Hydrochlorothiazide 25 mg 05/05/24 09:00 05/06/24 08:44 Hydrochlorothiazide 25 Mg Tablet PO 05/05/25 08:59 25 mg DAILY DARLEEN Administration Metoprolol Succinate 100 mg 05/05/24 21:00 05/05/24 21:47 Metoprolol Succinate 100 Mg Tab.Er.24h PO 05/05/25 20:59 100 mg QPM DARLEEN Administration Metoprolol Tartrate 5 mg 05/04/24 21:11 Metoprolol Tartrate 5 Mg/5 Ml Vial IV-PUSH 05/04/25 21:10 Q4H PRN Blood Pressure Multivitamins 1 tab 05/05/24 09:00 05/06/24 08:44 Multivitamin 1 Tab Tablet PO 05/05/25 08:59 1 tab DAILY DARLEEN Administration Sodium Chloride 0 ml 05/04/24 15:56 05/04/24 16:34 Sodium Chloride 0.9 % 10 Ml Syringe IV-PUSH 05/04/25 15:55 10 ml PRN PRN Administration Flush Sodium Chloride 0 ml 05/04/24 16:12 Sodium Chloride 0.9 % 10 Ml Syringe IV-PUSH 05/04/25 16:11 PRN PRN Flush Sodium Chloride 0 ml 05/04/24 22:00 05/06/24 07:02 Sodium Chloride 0.9 % 10 Ml Syringe IV-PUSH 05/04/25 21:59 10 ml QSHIFT DARLEEN Administration Vitamin D 25 mcg 05/05/24 09:00 05/06/24 08:44 Cholecalciferol 25 Mcg (1,000 Units) Tablet PO 05/05/25 08:59 25 mcg DAILY DARLEEN Administration A&P - Hospitalist Assessment/Plan (1) Transient cerebral ischemia: (2) Hypercholesteremia: (3) Hypertension: (4) Arthritis: (5) Accelerated hypertension: (6) Carotid stenosis, bilateral: (7) Poisoning by vitamins, accidental (unintentional), initial encounter: Plan Transient cerebral ischemia. Elevated blood pressure Right upper extremity (dominant side) numbness and weakness and poor coordination. History of carotid artery surgery on the left (TCAR) about 3 years ago. Clinically I suspect accelerated hypertension due to NSAIDs contained in the supplement that she was using. Patient report of rapid heart rate for short periods of time rarely at home before coming in MRI of the brain-No acute intracranial pathology or abnormal postcontrast enhancement. Plan: Continuous telemetry monitoring to rule out any arrhythmia. Neurology on consult recommended aspirin and Plavix for 21 days followed by Plavix only. Echocardiogram. This is still pending. Her lipid panel is reassuring. Triglycerides are little bit high at 165 her total cholesterol is good at 162 and LDL is quite good at 64 and HDL is also quite good at 65 Check hemoglobin A1c. This is still pending. Lovenox 40 mg subcutaneously daily for DVT prophylaxis. Documented By: Kameron Pires MD 05/06/24 1633 Signed By: <Electronically signed by Kameron Pires MD> 05/06/24 1702 [facility] Work Phone: 1(796) 369-350907-15-2024 Progress note Author Hiren Abrams [facility] May 06, 2024 4:29pm Note Date/Time May 06, 2024 4:29 pm [facility] [address] [place], [place] [id number] Neurology Progress Note Signed Patient: Sarah Jimenez MR#: [id number] : 1950 Acct:[id number] Age/Sex: 74 / F Adm Date: 4 Loc: Room: 7G8385-1 Type: ADM INOo Attending Dr: Kameron Pires MD Copies to: ~ Date of Service: 05/06/2024 Subjective Subjective Narrative: Patient symptoms resolved. No acute events overnight. Review of Systems Review of Systems All other systems reviewed & are negative unless noted below or in HPI Exam Physical Exam Vital Signs: Temp Pulse Resp BP Pulse Ox O2 Del Method 98.2 F 59 L 18 120/83 94 L Room Air 05/06/24 12:00 05/06/24 12:00 05/06/24 12:00 05/06/24 12:00 05/06/24 12:00 05/06/24 08:00 Narrative: Neurological exam: General: The patient is awake alert and oriented. Language is intact. Neurovascular exam: No carotid bruits. Regular rate and rhythm Cranial nerves: Pupils equal round reactive light and accommodation, extraocularmovements intact, visual mccabe are full to confrontation, sensations intact in the face, hearing is intact to finger rub, palate elevates bilaterally, tongue protrudes midline, shoulder shrug is symmetric. Motor: Strength testing is 5 out of 5 in all 4 extremities, deep tendon reflexesare 2+ and symmetric throughout, plantar reflexes flexor, tone is normal throughout. Sensory: Pinprick, light touch, temperature, proprioception are intact in all 4 extremities Cerebellar/gait: No ataxia noted on finger to nose or gait testing. Objective Vital Signs Vital Signs: Vital Signs - 24 hr 05/05/24 19:43 05/05/24 20:00 05/06/24 00:00 Temperature 98.4 F Pulse Rate 65 Respiratory Rate 16 Blood Pressure 132/80 02 Sat by Pulse Oximetry 97 Oxygen Delivery Method Room Air Room Air Room Air 05/06/24 00:00 05/06/24 04:43 05/06/24 04:45 Temperature 98.3 F Pulse Rate 54 L 58 L Respiratory Rate 14 14 Blood Pressure 119/79 02 Sat by Pulse Oximetry 94 L Oxygen Delivery Method Room Air Room Air 05/06/24 08:00 05/06/24 08:00 05/06/24 12:00 Temperature 98.2 F 98.2 F Pulse Rate 56 L 59 L Respiratory Rate 18 18 Blood Pressure 126/77 120/83 02 Sat by Pulse Oximetry 95 94 L Oxygen Delivery Method Room Air Room Air Labs 05/05/24 06:02 05/05/24 06:02 Assessment/Plan (1) TIA (transient ischemic attack): Assessment/Problem Details: The patient is a 74-year-old female with episode of right arm numbness, incoordination, and weakness possibly related to a transient ischemic attack or cerebral ischemia or infarct from artery to artery embolus, cerebral artery thrombosis, or cardioembolic event. I have reviewed the patient's evaluation including CT scan of the brain which did not reveal evidence of an acute infarctor hemorrhage. I reviewed the patient's CT angiogram which reveals a patent left carotid artery stent and mild atherosclerotic disease in the right internalcarotid artery. The patient had been taking aspirin monotherapy daily. Patientmay have suffered a transient ischemic attack given the fact that the MRI showedno acute findings and symptoms resolved within 24 hours Workup: CT of the brain without contrast: Unremarkable CT angiogram of the head and neck: No evidence of acute aneurysm, occlusion or dissection. There is evidence of previous carotid stenting and plaquing MRI of the brain: No acute findings LDL: 64?patient is on high-dose statin therapy Hemoglobin A1c: Pending 2D echocardiogram: Pending PLAN: I recommend starting Plavix 75 mg daily in addition to aspirin for 21 days. Then transitioning to Plavix 75 mg p.o. daily thereafter I recommend obtaining a cardiac echo to assess for hypokinesis, akinesis, or valve disease which may contribute to a cardioembolic event. I recommend obtaining telemetry and potential Holter monitor if necessary to assess for cardiac arrhythmia which may be the source of a cardioembolic event. The patient would benefit from continued screening and treatment of stroke risk factors including hypertension, hyperlipidemia, diabetes mellitus. The patient would benefit from evaluation and treatment recommendations by physical therapy, Occupational Therapy, and speech therapy. I counseled the patient on stroke signs and symptoms and advised her to go immediately to the emergency room the future should she develop the symptoms andto alert nursing should she develop the symptoms in the hospital. I counseled the patient on the possible diagnosis, evaluation, treatment options. If the patient's echocardiogram is unremarkable I believe the patient can be followed in the outpatient setting with neurology with recommendations as above. Please call with any questions or concerns. (2) Hypertension: Plan: as above Qualifiers: Hypertension type: primary hypertension Qualified Code(s): I10 - Essential (primary) hypertension (3) Hypercholesteremia: Plan: as above (4) Carotid stenosis, bilateral: Plan: as above Plan as above Documented By: Hiren Abrams DO [id number] Signed By: <Electronically signed by Hiren Abrams DO> 05/06/24 8055 [facility] Work Phone: [phone]) 860-361507-14-2024 Progress note Author Marvin Iglesias [facility] May 05, 2024 1:50pm Note Date/Time May 05, 2024 1:28 pm [facility] [address] [place], [place] [id number] Hospitalist Progress Note Signed Patient: Sarah Jimenez MR#: [id number] : 1950 Acct:[id number] Age/Sex: 74 / F Adm Date: 4 Loc: Room: 8L7097-6 Type: ADM INOo Attending Dr: Marvin Iglesias DO Copies to: ~ Date of Service: 05/05/2024 Subjective Subjective Narrative: Patient's elevated blood pressure, which was as high as 162/82 in the emergency room yesterday has gradually come down with readings such as 148/102 last night,146/85 this morning, and 133/78 now. The patient was seen by neurology on consultation earlier today by Dr. Diaz. The patient was in the emergency room she had an elevated white blood count of 16.4, although she had no signs or symptoms of an active infection. Today it ismuch better with white blood count improving to 13.7. Today the patient describes over the last few weeks she has had a racing heart feeling for short periods of time at rare intervals. She is very physically active and she will be doing a lot of physical activity and then feel very tired. (She did not mention any of this to me when I admitted her yesterday.) I checked the chart and the rhythm strips from telemetry were all normal. I personally called the telemetry room and they have not seen any tachyarrhythmiasor any tachycardia at all. The patient also noticed today that she has a bruise right over her right elbow. This was not present when she was in the emergency room yesterday. She wondersif that bruising could have caused the neurologic deficits to the right hand yesterday. Clinically I think it was more likely that she bumped her elbow yesterday when she had no control over her arm and the bruise just did not show up until now. The bruise clearly was not present when she was in the emergency room yesterday Otherwise right now the patient has no symptoms: No headache. No blurry vision. No visual abnormality. No speech abnormality. No chest pain or pressure. No nausea or upset stomach. The following is the information from the Food and drug administration website regarding the supplement UMARY: [04-05-2024]?The Food and Drug Administration is advising consumers not to purchase or use Umary, a product promoted and sold for pain on various websites,including?https://www.[employer].tv and possibly in some retail stores. FDA laboratory analysis confirmed that Umary contains diclofenac and omeprazole,which are not listed on the product label. Diclofenac is a non-steroidal anti-inflammatory drug (commonly referred to as NSAIDs). NSAIDs may cause increased risk of cardiovascular events, such as heartattack and stroke, as well as serious gastrointestinal damage, including bleeding, ulceration, and fatal perforation of the stomach and intestines. This hidden drug ingredient may also interact with other medications and significantly increase the risk of adverse events, particularly when consumers use multiple NSAID-containing products. Omeprazole is a proton pump inhibitor (commonly referred to as PPI) used to treat gastric (stomach) acid-related disorders. PPI medicines may cause serious skin reactions, abdominal pain, diarrhea, nausea, and headache. This hidden ingredient may mask stomach issues such as erosions, ulcers, and stomach cancer,and it can also interact with other medications and should not be taken with certain medications.? Health hospice care consultant and consumers should report adverse events or side effects related to the use of this product to FDA's [employer] Safety Information and Adverse Event Reporting Program: I, Dr. Iglesias, did complete the online med watch report yesterday after I admitted her. Exam Physical Exam Vital Signs: Temp Pulse Resp BP Pulse Ox O2 Del Method 98.2 F 65 16 133/78 97 Room Air 05/05/24 11:05/05/24 11:05/05/24 11:05/05/24 11:08 05/05/24 11:05/05/24 11:08 Narrative: GEN: Awake, alert, oriented x 3. Lungs: Clear to auscultation bilaterally, no wheezing, no crackles. Heart: Regular rate and rhythm, no murmurs, rubs, or gallops. Abdomen: Soft, normal bowel sounds, no rigidity, guarding, or acute peritoneal signs. Extremities: No swelling or cords in the calves bilaterally, no edema in the ankles bilaterally. Right elbow does have small purple bruise right over the elbow. I think thislooks more like mild trauma (a bump and then a bruise) and not like a spontaneous hematoma that could cause any issue with the nerves distally down her forearm or into the hand. Neuro: Moves all 4 extremities extremely well so I detect no focal or lateralizing deficits. Objective Lab Results 05/05/24 06:02 05/05/24 06:02 Microbiology Results Microbiology 05/04/24 16:31 Clean Void Midstream Urine Culture - Preliminary 30,000 colonies/ml mixed bacterial skin contaminants 1 Day 05/04/24 16:31 Nasopharyngeal SARS-CoV-2, Influenza & RSV (PCR) - Final Meds Allergies and Active Meds Allergies No Known Drug Allergies Allergy (Unknown, Verified 05/04/24 16:10) Unknown Reaction Active Meds: Active Medications Generic Name Dose Route Start Last Admin Trade Name Freq PRN Reason Stop Dose Admin Acetaminophen 1,000 mg 05/04/24 21:10 05/05/24 04:02 Acetaminophen 500 Mg Tablet PO 05/04/25 21:09 1,000 mg BID PRN Administration Pain Amlodipine Besylate 5 mg 05/05/24 21:00 Amlodipine 5 Mg Tablet PO 05/05/25 20:59 QPM DARLEEN Aspirin 81 mg 05/05/24 09:00 05/05/24 08:51 Aspirin 81 Mg Tab.Chew PO 05/05/25 08:59 81 mg DAILY DARLEEN Administration Atorvastatin Calcium 80 mg 05/05/24 21:00 Atorvastatin 80 Mg Tablet PO 05/05/25 20:59 QPM DARLEEN Clopidogrel Bisulfate 75 mg 05/05/24 09:00 05/05/24 08:51 Clopidogrel Bisulfate 75 Mg Tablet PO 05/05/25 08:59 75 mg DAILY DARLEEN Administration Enoxaparin Sodium 40 mg 05/05/24 10:00 05/05/24 11:09 Enoxaparin 40 Mg/0.4 Ml Syringe SUBCUT 05/05/25 09:59 40 mg DAILY@10 DARLEEN Administration Escitalopram Oxalate 10 mg 05/05/24 09:00 05/05/24 08:51 Escitalopram 10 Mg Tablet PO 05/05/25 08:59 10 mg DAILY DARLEEN Administration Hydrochlorothiazide 25 mg 05/05/24 09:00 05/05/24 08:53 Hydrochlorothiazide 25 Mg Tablet PO 05/05/25 08:59 25 mg DAILY DARLEEN Administration Metoprolol Succinate 100 mg 05/05/24 21:00 Metoprolol Succinate 100 Mg Tab.Er.24h PO 05/05/25 20:59 QPM DARLEEN Metoprolol Tartrate 5 mg 05/04/24 21:11 Metoprolol Tartrate 5 Mg/5 Ml Vial IV-PUSH 05/04/25 21:10 Q4H PRN Blood Pressure Multivitamins 1 tab 05/05/24 09:00 05/05/24 08:51 Multivitamin 1 Tab Tablet PO 05/05/25 08:59 1 tab DAILY DARLEEN Administration Sodium Chloride 0 ml 05/04/24 15:56 05/04/24 16:34 Sodium Chloride 0.9 % 10 Ml Syringe IV-PUSH 05/04/25 15:55 10 ml PRN PRN Administration Flush Sodium Chloride 0 ml 05/04/24 16:12 Sodium Chloride 0.9 % 10 Ml Syringe IV-PUSH 05/04/25 16:11 PRN PRN Flush Sodium Chloride 0 ml 05/04/24 22:00 05/05/24 06:38 Sodium Chloride 0.9 % 10 Ml Syringe IV-PUSH 05/04/25 21:59 Not Given QSHIFT DARLEEN Vitamin D 25 mcg 05/05/24 09:00 05/05/24 08:51 Cholecalciferol 25 Mcg (1,000 Units) Tablet PO 05/05/25 08:59 25 mcg DAILY DARLEEN Administration A&P - Hospitalist Assessment/Plan (1) Transient cerebral ischemia: (2) Hypercholesteremia: (3) Hypertension: (4) Arthritis: (5) Accelerated hypertension: (6) Carotid stenosis, bilateral: (7) Poisoning by vitamins, accidental (unintentional), initial encounter: Plan Transient cerebral ischemia. Elevated blood pressure Right upper extremity (dominant side) numbness and weakness and poor coordination. History of carotid artery surgery on the left (TCAR) about 3 years ago. Clinically I suspect accelerated hypertension due to NSAIDs contained in the supplement that she was using. Patient report of rapid heart rate for short periods of time rarely at home before coming in Plan: Placement in the hospital and observation status. Continuous telemetry monitoring. Consult to neurology. MRI of the brain without contrast. This is still pending. Echocardiogram. This is still pending. Her lipid panel is reassuring. Triglycerides are little bit high at 165 her total cholesterol is good at 162 and LDL is quite good at 64 and HDL is also quite good at 65 Check hemoglobin A1c. This is still pending. IV Lopressor to help her bring systolic blood pressure lower than 150. Adding Plavix 75 mg back to her aspirin 81 mg. It is uncertain but is believed that she has been NOT TAKING her Plavix for between 3 and 6 months, but possibly more. Lovenox 40 mg subcutaneously daily for DVT prophylaxis. Documented By: Marvin Iglesias DO [id number] Signed By: <Electronically signed by Marvin Iglesias DO> 05/05/24 2226 [facility] Work Phone: [phone]) 841-533207-14-2024 Consult note Author Julian Diaz [facility] May 05, 2024 10:11am Note Date/Time May 05, 2024 10:1 1am [facility] [address] [place] [address] Neurology Consult Note Signed Patient: Sarah Jimenez MR#: [id number] : 1950 Acct:[id number] Age/Sex: 74 / F Adm Date: 4 Loc: Room: [address] [place] [address] Type: ADM INOo Attending Dr: Marvin Iglesias DO Copies to: DO Sharmaine Mehta DO Steven Benedict, MD~ HPI Consult Date: 05/05/24 Diploma Maker: Julian Diaz MD Reason for consult: Stroke Consult Narrative HPI: The patient is a 74-year-old female who I was asked to see in neurological consultation by the hospitalist for stroke. The patient has a history of hypertension, carotid artery disease with carotid artery stent, TIA, and hypercholesterolemia. The patient states that the day of admission she developed acute onset of right upper extremity weakness and incoordination associated with some paresthesias manifested as tingling in the right hand. Shestates that these symptoms lasted approximately 10 minutes and then resolved. She denies any involvement of her face or leg during that. The patient denies any vision changes, slurred speech, or difficulty ambulating. The patient was eventually evaluated in the emergency room with a CT scan of the brain which didnot reveal evidence of acute infarct or hemorrhage. The patient did have a CT angiogram which revealed evidence of patent carotid artery stent on the left andmild atherosclerotic disease on the right. The patient is admitted to the hospital for further workup and evaluation. The patient was evaluated by the [facility] stroke team and deemed to not be a candidate for thrombolytics. The patient states that her symptoms are back to normal. Review of Systems Review of Systems All other systems reviewed & are negative unless noted below or in HPI [facility] Medical History (Updated 05/04/24 @ 21:25 by Marvin Iglesias DO) TIA (transient ischemic attack) Kidney stones Hypertension Symptomatic stenosis of left carotid artery Other headache syndrome Occlusion and stenosis of bilateral carotid arteries Mixed hyperlipidemia Macular degeneration Left carotid stenosis Generalized arthritis Carotid stenosis, bilateral Right foot pain .receive steroid injection Kidney stones dr antonio Hypercholesteremia TIA (transient ischemic attack) Anxiety Arthritis Hypertension Surgical History History of transcarotid artery revascularization (TCAR) Left History of left-sided carotid endarterectomy H/O colonoscopy History of hysterectomy History of tonsillectomy History of blepharoplasty History of cataract surgery History of cholecystectomy Family History Father Hypertension Heart disease Mother Diabetes Advanced cirrhosis of liver Stroke Father Heart disease Mother Diabetes Sister Hypertension Heart disease Diabetes Social History Smoking Status: Never smoker Substance Use Type: None Meds Medications and Allergies Allergies No Known Drug Allergies Allergy (Unknown, Verified 05/04/24 16:10) Unknown Reaction Home Medications escitalopram oxalate 10 mg tablet 10 mg PO DAILY 02/07/21 [History Confirmed 05/04/24] metoprolol succinate 100 mg tablet,extended release 24 hr 100 mg PO DAILY 02/07/21 [History Confirmed 05/04/24] amlodipine 5 mg tablet 5 mg PO DAILY #30 tabs 02/08/21 [Rx Confirmed 05/04/24] aspirin 81 mg chewable tablet (Children's Aspirin) 81 mg PO DAILY 30 days #30 tabs 02/08/21 [Rx Confirmed 05/04/24] atorvastatin 80 mg tablet 80 mg PO QPM 30 days #30 tabs 02/08/21 [Rx Confirmed 05/04/24] acetaminophen 500 mg tablet 1,000 mg PO BID PRN Pain 12/14/22 [History Confirmed 05/04/24] cholecalciferol (vitamin D3) 25 mcg (1,000 unit) chewable tablet (Vitamin D3) 25mcg PO DAILY 12/14/22 [History Confirmed 05/04/24] bapmetwk-pjca-llbj 8 mg-folic 400 mcg-K 50 mcg-lutein 300 mcg tablet (Multivitamin Women 50 Plus) 1 tab PO DAILY 12/14/22 [History Confirmed 05/04/24] umary 1 tab PO DAILY 05/04/24 [History Confirmed 05/04/24] Exam Physical Exam Vital Signs: Temp Pulse Resp BP Pulse Ox O2 Del Method 98.4 F 69 16 146/85 H 97 Room Air 05/05/24 08:38 05/05/24 08:38 05/05/24 08:38 05/05/24 08:38 05/05/24 08:38 05/05/24 08:38 Narrative: Neurological exam: General: The patient is awake alert and oriented. Language is intact. Neurovascular exam: No carotid bruits. Regular rate and rhythm Cranial nerves: Pupils equal round reactive light and accommodation, extraocularmovements intact, visual mccabe are full to confrontation, sensations intact in the face, hearing is intact to finger rub, palate elevates bilaterally, tongue protrudes midline, shoulder shrug is symmetric. Motor: Strength testing is 5 out of 5 in all 4 extremities, deep tendon reflexesare 2+ and symmetric throughout, plantar reflexes flexor, tone is normal throughout. Sensory: Pinprick, light touch, temperature, proprioception are intact in all 4 extremities Cerebellar/gait: No ataxia noted on finger to nose or gait testing. Results - Neuro Laboratory Findings 05/05/24 06:02 05/05/24 06:02 Diagnostic Findings Imaging/Impressions: ITS Impressions Head CT 05/04/24 16:02 IMPRESSION: No acute intracranial pathology. 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 Findings were discussed with Dr. Montelongo at 4:22 PM on 05/04/2024 Impression dictated by: Ata Samuel M.D.05/04/2024 4:23 PM Dictation Location: [facility]-13 Head CTA 05/04/24 16:09 IMPRESSION: There is evidence of prior stenting of the proximal left internal carotid arteryand carotid bulb without significant stenosis. Calcified plaque is noted at the right carotid bifurcation with approximately 50% narrowing of the proximal right internal carotid artery. Calcified plaque contributes to significant stenosis of the origin of the right vertebral artery. Calcified plaque is noted at the left ICA terminus contributing to at least moderate narrowing. No evidence of focal stenosis, aneurysmal dilatation, dissection or occlusion. Impression dictated by: Ata Samuel M.D.05/04/2024 4:33 PM Dictation Location: [place] [address] Assessment/Plan (1) TIA (transient ischemic attack): Assessment/Problem Details: The patient is a 74-year-old female with episode of right arm numbness, incoordination, and weakness possibly related to a transient ischemic attack or cerebral ischemia or infarct from artery to artery embolus, cerebral artery thrombosis, or cardioembolic event. I have reviewed the patient's evaluation including CT scan of the brain which did not reveal evidence of an acute infarctor hemorrhage. I reviewed the patient's CT angiogram which reveals a patent left carotid artery stent and mild atherosclerotic disease in the right internalcarotid artery. The patient had been taking aspirin monotherapy daily. I recommend obtaining an MRI scan of the brain to assess for acute cerebral ischemia or infarct. I recommend starting Plavix 75 mg daily in addition to aspirin for 21 days. I recommend obtaining a cardiac echo to assess for hypokinesis, akinesis, or valve disease which may contribute to a cardioembolic event. I recommend obtaining telemetry and potential Holter monitor if necessary to assess for cardiac arrhythmia which may be the source of a cardioembolic event. The patient would benefit from continued screening and treatment of stroke risk factors including hypertension, hyperlipidemia, diabetes mellitus. The patient would benefit from evaluation and treatment recommendations by physical therapy, Occupational Therapy, and speech therapy. I counseled the patient on stroke signs and symptoms and advised her to go immediately to the emergency room the future should she develop the symptoms andto alert nursing should she develop the symptoms in the hospital. I counseled the patient on the possible diagnosis, evaluation, treatment options. Documented By: Julian Diaz MD 05/05/24 1004 Signed By: <Electronically signed by MD Julian Diaz> 05/05/24 1011 [facility] Work Phone: [phone]) 216-562607-13-2024 History and physical note Author Marvin Iglesias [facility] May 04, 2024 9:30pm Note Date/Time May 04, 2024 9:29 pm [facility] [address] [place] [address] Hospitalist H&P Signed Patient: Sarah Jimenez MR#: [id number] : 1950 Acct:[id number] Age/Sex: 74 / F Adm Date: 4 Loc: Room: 5Z6395-0 Type: ADM INOo Attending Dr: Marvin Iglesias DO Copies to: DO Sharmaine Mehta DO~ HPI DATE OF EXAMINATION: 05/04/24 CHIEF COMPLAINT: Sudden weakness and numbness of the right arm and hand. HISTORY OF PRESENT ILLNESS: This is is a 74-year-old woman who was at home and is in her usual state of health when suddenly she had difficulty using her right hand. She had numbness extending up to the elbow. She went to carry a cup of ice and it was spilling all over the place. She could not control the hand. She was dropping the cup. She went to go take her blood pressure and her blood pressure number was pretty good. She gave herself one of her own 81 mg aspirins. She then went to try andmanipulate a bag of chips and it was spilling all over the place. All of this occurred 30 minutes prior to arrival. After about 15 minutes of the symptoms did begin to get better. By time she was checked out by the emergency room, allof the deficits seem to be gone. In the emergency room CT scan of her head showed age-related changes but no acute changes and CT angiography showed patent stent in the left carotid artery and the right carotid artery is 50% plaque. The emergency room made contact with the [facility] stroke neurointerventional team who recommended that the patient be provided with Plavix 75 mg, and admitted here for a nonemergent MRI. The patient does have a history of a transient ischemic attack back in on February 08, 2021. At that time the carotid artery stenosis on the left was discovered. Her symptoms at that time were right tongue numbness and right perioral numbnessand slurred speech. Since getting the carotid artery procedure (TCAR) she had been taking aspirin and Plavix and statin, but believes that she stopped taking the Plavix for several months now, possibly even 6 months or a year ago. She says that her blood pressures are always well-controlled. She has been compliant with all of her medications. She is continue to take aspirin 81 mg daily. The emergency room did discover that she has been taking a new supplement that one of her family members recommended for arthritis called UMARY. Doing some Google searching online I found that this is a supplement that is supposed to contain hyaluronic acid to help with arthritis pain. However there is an FDA advisory from 04/05/2024 that this contains diclofenac and omeprazole which can cause medication interactions, especially the formulation of this which comes from [employer]. I showed the patient and her family members the bottle on my phoneand they said that is the exact product that she has been using. The patient states that for her left knee arthritis she was using naproxen but it was really making my stomach feel like it was torn up. So she stopped the naproxen. She said that taking this UMARY supplement was by far and away the most effective thing she ever took for her arthritis pain and she said that she has felt pain-free for the week or 2 that she has been taking it. When the ER had ordered her to take Plavix the patient initially refused because she was worried that it would interact with this supplement. I told the patient that she should stop taking the supplement that she really should take the Plavix right now. The following is the information from the Food and drug administration website regarding UMARY: [04-05-2024]?The Food and Drug Administration is advising consumers not to purchase or use Umary, a product promoted and sold for pain on various websites, including?https://www.[employer]urr and possibly in some retail stores. FDA laboratory analysis confirmed that Umary contains diclofenac and omeprazole, which are not listed on the product label. Diclofenac is a non-steroidal anti-inflammatory drug (commonly referred to as NSAIDs). NSAIDs may cause increased risk of cardiovascular events, such as heart attack and stroke, as well as serious gastrointestinal damage, including bleeding, ulceration, and fatal perforation of the stomach and intestines. This hidden drug ingredient may also interact with other medications and significantly increase the risk of adverse events, particularly when consumers use multiple NSAID- containing products. Omeprazole is a proton pump inhibitor (commonly referred to as PPI) used to treat gastric (stomach) acid-related disorders. PPI medicines may cause serious skin reactions, abdominal pain, diarrhea, nausea, and headache. This hidden ingredient may mask stomach issues such as erosions, ulcers, and stomach cancer, and it can also interact with other medications and should not be taken with certain medications.? Health hospice care consultant and consumers should report adverse events or side effects related to the use of this product to FDA's [employer] Safety Information and Adverse Event Reporting Program: I, Dr. Iglesias, did go ahead and complete the [employer] Online Voluntary Reporting Form for this incident. Review of Systems Review of Systems Review of systems: 10 systems are reviewed and are negative except as mentioned elsewhere in the documentation. [facility] Medical History (Updated 05/04/24 @ 21:25 by Marvin Iglesias DO) TIA (transient ischemic attack) Kidney stones Hypertension Symptomatic stenosis of left carotid artery Other headache syndrome Occlusion and stenosis of bilateral carotid arteries Mixed hyperlipidemia Macular degeneration Left carotid stenosis Generalized arthritis Carotid stenosis, bilateral Right foot pain .receive steroid injection Kidney stones dr antonio Hypercholesteremia TIA (transient ischemic attack) Anxiety Arthritis Hypertension Surgical History History of transcarotid artery revascularization (TCAR) Left History of left-sided carotid endarterectomy H/O colonoscopy History of hysterectomy History of tonsillectomy History of blepharoplasty History of cataract surgery History of cholecystectomy Family History Father Hypertension Heart disease Mother Diabetes Advanced cirrhosis of liver Stroke Father Heart disease Mother Diabetes Sister Hypertension Heart disease Diabetes Social History Smoking Status: Never smoker Substance Use Type: None Meds Medications and Allergies Allergies No Known Drug Allergies Allergy (Unknown, Verified 05/04/24 16:10) Unknown Reaction Home Medications escitalopram oxalate 10 mg tablet 10 mg PO DAILY 02/07/21 [History Confirmed 05/04/24] metoprolol succinate 100 mg tablet,extended release 24 hr 100 mg PO DAILY 02/07/21 [History Confirmed 05/04/24] amlodipine 5 mg tablet 5 mg PO DAILY #30 tabs 02/08/21 [Rx Confirmed 05/04/24] aspirin 81 mg chewable tablet (Children's Aspirin) 81 mg PO DAILY 30 days #30 tabs 02/08/21 [Rx Confirmed 05/04/24] atorvastatin 80 mg tablet 80 mg PO QPM 30 days #30 tabs 02/08/21 [Rx Confirmed 05/04/24] acetaminophen 500 mg tablet 1,000 mg PO BID PRN Pain 12/14/22 [History Confirmed 05/04/24] cholecalciferol (vitamin D3) 25 mcg (1,000 unit) chewable tablet (Vitamin D3) 25mcg PO DAILY 12/14/22 [History Confirmed 05/04/24] uebhitif-frqt-vwbp 8 mg-folic 400 mcg-K 50 mcg-lutein 300 mcg tablet (Multivitamin Women 50 Plus) 1 tab PO DAILY 12/14/22 [History Confirmed 05/04/24] umary 1 tab PO DAILY 05/04/24 [History Confirmed 05/04/24] Exam Physical Exam Vital Signs: Temp Pulse Resp BP Pulse Ox O2 Del Method 98.2 F 62 18 161/72 H 98 Room Air 05/04/24 16:14 05/04/24 20:19 05/04/24 20:19 05/04/24 20:19 05/04/24 20:19 05/04/24 20:19 Narrative: GEN: Awake, alert, oriented x 3. Head: Normal Cephalic, Atraumatic. Eyes: Conjunctiva and sclera clear bilaterally. EOMI. PERRLA. Nose: External nose and nares normal bilaterally. Do not see any nasolabial fold abnormalities or asymmetry. Mouth: Lips and tongue normal. Tongue protrudes in the midline. Neck: No JVD. No thyromegaly. No lymphadenopathy. Lungs: Clear to auscultation bilaterally, no wheezing, no crackles. Heart: Regular rate and rhythm, no murmurs, rubs, or gallops. Abdomen: Soft, normal bowel sounds, no rigidity, guarding, or acute peritoneal signs. Extremities: No swelling or cords in the calves bilaterally, no edema in the ankles bilaterally. Skin: No systemic rashes or lesions. Psychiatric: Calm. Conversant. Cooperative. Neuro: Moves all 4 extremities extremely well so I detect no focal or lateralizing deficits. Results - Hospitalist H&P Lab Results Labs: Laboratory Last Values Corrected WBC 16.4 X10E3/uL (3.8-11.6) H 05/04/24 16:10 Uncorrected WBC Count 16.4 x10E3/uL (3.8-11.6) H 05/04/24 16:10 RBC 4.45 X10E6/uL (3.60-5.00) 05/04/24 16:10 Hgb 14.4 g/dL (11.8-15.4) 05/04/24 16:10 POC Hgb 16.0 g/dl (12.0-17.0) 05/04/24 16:13 Hct 42.0 % (34.0-46.4) 05/04/24 16:10 POC Hct 47.0 % (38.0-51.0) 05/04/24 16:13 MCV 94.4 fl (80-100) 05/04/24 16:10 MCH 32.2 pg (24.7-34.3) 05/04/24 16:10 MCHC 34.2 g/dL (32.0-35.0) 05/04/24 16:10 RDW 13.0 % (11.9-15.3) 05/04/24 16:10 Plt Count 264 x10E3/uL (150-450) 05/04/24 16:10 MPV 8.2 fl (6.3-10.7) 05/04/24 16:10 Neut % (Auto) 76.3 % (.) 05/04/24 16:10 Lymph % (Auto) 13.3 % (.) 05/04/24 16:10 [place] % (Auto) 7.6 % (.) 05/04/24 16:10 Eos % (Auto) 1.9 % (.) 05/04/24 16:10 Baso % (Auto) 0.9 % (.) 05/04/24 16:10 Nucleat RBC Rel Count 0.1 /100 WBC (0-0.5) 05/04/24 16:10 Neut # (Auto) 12.5 x10E3/uL (1.8-7.7) H 05/04/24 16:10 Lymph # (Auto) 2.2 x10E3/uL (1.00-4.8) 05/04/24 16:10 [place] # (Auto) 1.2 x10E3/uL (0.0-0.8) H 05/04/24 16:10 Eos # (Auto) 0.3 x10E3/uL (0.0-0.45) 05/04/24 16:10 Baso # (Auto) 0.1 x10E3/uL (0.0-0.2) 05/04/24 16:10 Monocyte Dist Width 17.82 % (0.00-20.00) 05/04/24 16:10 PT 10.8 Seconds (9.0-12.9) 05/04/24 16:10 INR 0.9 05/04/24 16:10 APTT 25.5 Seconds (25.1-36.5) 05/04/24 16:10 PHA Creatinine Clear 40.72 05/04/24 16:10 POC Sodium 138 mmol/L (138-146) 05/04/24 16:13 Sodium 136 mmol/L (136-145) 05/04/24 16:10 POC Potassium 4.5 mmol/L (3.5-4.9) 05/04/24 16:13 Potassium 4.5 mmol/L (3.5-5.1) 05/04/24 16:10 POC Chloride 104.0 mmol/L (98-109) 05/04/24 16:13 Chloride 105 mmol/L (98-107) 05/04/24 16:10 Carbon Dioxide 23.5 mmol/L (21.0-31.0) 05/04/24 16:10 POC Total CO2 28 mmol/L (23-29) 05/04/24 16:13 Anion Gap 12.0 mEq/L (6.0-15.0) 05/04/24 16:10 POC BUN 27 mg/dl (8-26) H 05/04/24 16:13 BUN 26 mg/dL (7-25) H 05/04/24 16:10 Creatinine 1.14 mg/dL (0.60-1.20) 05/04/24 16:10 POC Creatinine 1.1 mg/dl (0.6-1.3) 05/04/24 16:13 Est GFR (CKD-EPI) 51.148 mL/Min 05/04/24 16:10 Glucose 133 mg/dL (70-100) H 05/04/24 16:10 POC Whole Bld Glucose 135 mg/dl (70-105) H 05/04/24 16:13 POC Glucose 127 mg/dl 05/04/24 16:06 Lactic Acid 1.3 mmol/L (0.5-2.2) 05/04/24 17:33 Calcium 9.2 mg/dL (8.6-10.3) 05/04/24 16:10 POC Ioniz Calcium Sudhakar 1.18 mol/L (1.12-1.32) 05/04/24 16:13 Total Bilirubin 0.7 mg/dl (0.3-1.0) 05/04/24 16:10 AST 35 U/L (13-39) 05/04/24 16:10 ALT 53 U/L (7-52) H 05/04/24 16:10 Alkaline Phosphatase 61 U/L (34-104) 05/04/24 16:10 Total Creatine Kinase 65 U/L (30-223) 05/04/24 16:10 Troponin I High Sens 3.6 pg/mL (0.0-15.0) 05/04/24 16:10 Total Protein 6.9 gm/dL (6.4-8.9) 05/04/24 16:10 Albumin 4.2 gm/dL (3.5-5.7) 05/04/24 16:10 Globulin 2.7 gm/dL 05/04/24 16:10 Albumin/Globulin Ratio 1.6 05/04/24 16:10 Urine Color Yellow (Yellow) 05/04/24 16:31 Urine Appearance Clear (Clear) 05/04/24 16:31 Urine pH 5.5 (5.0-9.0) 05/04/24 16:31 Ur Specific Hector > 1.050 (1.001-1.030) H 05/04/24 16:31 Urine Protein Negative mg/dL (Negative) 05/04/24 16:31 Urine Glucose (UA) Normal mg/dL (Normal) 05/04/24 16:31 Urine Ketones Trace (Negative) H 05/04/24 16:31 Urine Occult Blood Negative (Negative) 05/04/24 16:31 Urine Nitrite Negative (Negative) 05/04/24 16:31 Urine Bilirubin Negative (Negative) 05/04/24 16:31 Urine Urobilinogen Normal mg/dL (Normal) 05/04/24 16:31 Ur Leukocyte Esterase Negative (Negative) 05/04/24 16:31 SARS-CoV-2 Rap RNA(RT-PCR) Negative (Negative) 05/04/24 16:31 Microbiology Results Micro: Microbiology - Results from entire visit 05/04/24 16:31 Nasopharyngeal SARS-CoV-2, Influenza & RSV (PCR) - Final Assessment & Plan Assessment/Plan (1) Transient cerebral ischemia: (2) Hypercholesteremia: (3) Hypertension: (4) Arthritis: (5) Accelerated hypertension: (6) Carotid stenosis, bilateral: (7) Poisoning by vitamins, accidental (unintentional), initial encounter: Plan Transient cerebral ischemia. Right upper extremity (dominant side) numbness and weakness and poor coordination. History of carotid artery surgery on the left (TCAR) about 3 years ago. Clinically I suspect accelerated hypertension due to NSAIDs and the supplement that she was using. Has she been using Plavix while taking the supplement the effect of the Plavix would have been reduced. Plan: Placement in the hospital and observation status. Continuous telemetry monitoring. Consult to neurology. MRI of the brain without contrast. Echocardiogram. Check lipid panel which should be fasting. Check hemoglobin A1c. IV Lopressor to help her bring systolic blood pressure lower than 150. Adding Plavix 75 mg back to her aspirin 81 mg. It is uncertain but is believed that she has been away for Plavix for between 3 and 6 months, but possibly more. Lovenox 40 mg subcutaneously daily for DVT prophylaxis. IP vs OBS Justification Based on differential dx, clinical care plan, and risk of adverse events, if untreated, in my clinical judgement this patient requires an acute care setting as: OBSERVATION because of an expectation of an under 2 midnight stay. Estimated length of stay (# of days): 3 Documented By: Marvin Iglesias DO 2113 Signed By: <Electronically signed by Marvin Iglesias DO> 05/04/242129 [facility] Work Phone: 1(490) 177-574406-06-2024 Hospital Discharge instructions Patient Education 03/28/2024 11:30:43 Kegel Exercises Kegel Exercises Kegel exercises can help strengthen your pelvic floor muscles. The pelvic floor is a group of muscles that support your rectum, small intestine, and bladder. In females, pelvic floor muscles also help support the uterus. These muscles help you control the flow of urine and stool (feces). Kegel exercises are painless and simple. They do not require any equipment. Your provider may suggest Kegel exercises to: Improve bladder and bowel control. Improve sexual response. Improve weak pelvic floor muscles after surgery to remove the uterus (hysterectomy) or after , in females. Improve weak pelvic floor muscles after prostate gland removal or surgery, in males. Kegel exercises involve squeezing your pelvic floor muscles. These are the same muscles you squeezewhen you try to stop the flow of urine or keep from passing gas. The exercises can be done while sitting, standing, or lying down, but it is best to vary your position. Ask your health care provider which exercises are safe for you. Do exercises exactly as told by your health care provider and adjust them as directed. Do not begin these exercises until told by your health care provider. Exercises How to do Kegel exercises: 1.Squeeze your pelvic floor muscles tight. You should feel a tight lift in your rectal area. If youare a female, you should also feel a tightness in your vaginal area. Keep your stomach, buttocks, and legs relaxed. 2.Hold the muscles tight for up to 10 seconds. 3.Breathe normally. 4.Relax your muscles for up to 10 seconds. 5.Repeat as told by your health care provider. Repeat this exercise daily as told by your health care provider. Continue to do this exercise for at least 4 6 weeks, or for as long as told by your health care provider. You may be referred to a physical therapist who can help you learn more about how to do Kegel exercises. Depending on your condition, your health care provider may recommend: Varying how long you squeeze your muscles. Doing several sets of exercises every day. Doing exercises for several weeks. Making Kegel exercises a part of your regular exercise routine. This information is not intended to replace advice given to you by your health care provider. Make sure you discuss any questions you have with your health care provider. Document Revised: 02/17/2022 Document Reviewed: 02/17/2022 [employer] Patient Education 2022 [employer]. Follow Up Care 03/28/2023 13:31:18 With:CARLA ABRAHAM PA-C, URL Address: [address] [place] [address] [phone] When: Unknown Comments:18 mos (no labs) [facility] 06-06-2024 Note From: Linda Singh To: EU - Administrative; Sent: 03/28/2024 11:53:00 EDT Show up: 12/21/2024 11:52:00 EST Subject: Ambulatory Reminder Due Date/Time: 09/22/2025 11:52:00 EST Reminder/Recall Patient needs scheduled for a 1.5 yr follow up with [facility] when schedules are built that far out. Due in 10/16[facility]02-09-2024 History of Present illness Narrative* Sharmaine Fletcher DO - 12/01/2023 10:47 AM EST Associated Problem(s): Stage 3a chronic kidney disease (HCC) (CMS/HCC) -We will continue to monitor your renal function for any significant decline in eGFR (which is a measure of how well your kidneys are working). We will continue to work to optimally control any underlying conditions that are associated with worsening effects on kidney function and I will adjust medications as needed due to any changes in your kidney function. * Sharmaine Fletcher DO - 12/01/2023 10:47 AM ESTAssociated Problem(s): Hyperlipidemia LDL goal <100 (CMS/HCC) -Reinforced importance of dietary modification, regular cardiovascular activity and compliance withany prescribed medication for detention management/control of lipids. High cholesterol (especially LDL) is associated with an elevated risk of cardiovascular disease. This includes coronary artery disease. stroke and peripheral vascular disease. High cholesterol has also been linked to diabetes and high blood pressure risks. By appropriately treating LDL, these risks can be reduced. * Sharmaine Fletcher, DO - 12/01/2023 10:47 AM ESTAssociated Problem(s): Essential hypertension (CMS/HCC) BP looks good. Continue current medications and monitor * Sharmaine Fletcher, DO - 12/01/2023 10:00 AM EST Images from the original note were not included. Subjective Patient ID: Sarah Jimenez (: 1950) is a 73 y.o. female who presents for Routine 3 Mo Follow-up. HPI : Sarah is being seen today for a routine three month follow-up with Dr. Damian. ---- Pt.'s lab results from 08/2023 are documented in EHR for reference. ---- Pt reports since her last visit she has changed her diet and cut out a lot of carbs. She is hoping that the A1c will show improvement. ---- Pt reports that she began with a runny nose, cough and scratchy throat two days ago. Pt denies any fever, chills or body aches. ---- Diabetes Management -DM was diagnosed 08/2023 (IFG progressed to DM when A1c went rom 6/1% to 7.0%). She modified her diet- mostly reduced CHO intake and 3 months later, A1c down to 5.9%) -Associated complications: CKD 3a -Current Medications: diet controlled at this time -Pt does not check her bs at this time -Previous A1c completed: in 08/2023 = 7.0% -Most recent A1c: in 11/2023 = 5.9% -Last GISSELEL: 08/2023 -Last lipids: 08/2023 -Last DM eye exam completed: 10/2023: Pt reports she had an eye exam in October at [facility], will call for report Findings on eye exam: no DR (per pt) Current Outpatient Medications Medication Instructions amLODIPine (NORVASC) 5 mg, Oral, Daily aspirin 81 mg, Oral, Every 24 hours atorvastatin (LIPITOR) 80 mg, Oral, Daily escitalopram (Lexapro) 10 MG tablet TAKE 1 TABLET BY MOUTH EVERY DAY estradiol (ESTRACE) 1 g, Vaginal, 2 times weekly metoprolol succinate XL (TOPROL-XL) 100 mg, Oral, Every 24 hours Misc Natural Products (Osteo Bi-Flex Triple Strength) tablet 1 tablet, Oral, Every 24 hours naproxen (EC Naprosyn) 500 MG EC tablet 1 tablet Orally once or twice a day as needed for 90 days No Known Allergies Patient Active Problem List Diagnosis Arthritis of left knee Carotid stenosis, bilateral Dysthymia ([facility]) Essential hypertension ([facility]) Hyperlipidemia LDL goal <100 ([facility]) Type 2 diabetes mellitus with kidney complication, without long-term current use of insulin ([facility]) ([facility]) Primary localized osteoarthrosis of ankle and foot Stage 3a chronic kidney disease (HCC) ([facility]) TIA (transient ischemic attack) Hypocitraturic calcium nephrolithiasis Review of Systems Constitutional: Negative for activity change, appetite change, fatigue and unexpected weight change. HENT: Positive for postnasal drip. Negative for ear pain, hearing loss, sinus pain, trouble swallowing and voice change. Eyes: Negative for photophobia, pain and visual disturbance. Respiratory: Positive for cough. Negative for shortness of breath and wheezing. Cardiovascular: Negative for chest pain, palpitations and leg swelling. Gastrointestinal: Negative for abdominal distention, abdominal pain, blood in stool and nausea. Genitourinary: Negative for difficulty urinating, dysuria and hematuria. Musculoskeletal: Positive for arthralgias. Negative for back pain, gait problem and joint swelling. -Right posterior flank discomfort (has been present for years). Seems to be related to need for BM -hx plantar fasciitis. She has seen Podiatry/Dr Corral 2022 and he did an injection Skin: Negative for rash and wound. Neurological: Negative for dizziness, tremors, speech difficulty, weakness, numbness and headaches. Psychiatric/Behavioral: Negative for confusion, decreased concentration, hallucinations and sleep disturbance. Endocrine: Negative for polydipsia, polyphagia and polyuria. Allergic/Immunologic: Negative for immunocompromised state. Objective Vital signs: BP 124/78 Pulse 62 Wt 149 lb 6.4 oz SpO2 98% BMI 28.23 kg/m Office Visit on 12/01/2023 Component Date Value Ref Range Status Hemoglobin A1C 12/01/2023 5.9 Final Physical Exam Constitutional: General: She is not in acute distress. Appearance: Normal appearance. HENT: Head: Normocephalic. Eyes: General: No scleral icterus. Extraocular Movements: Extraocular movements intact. Conjunctiva/sclera: Conjunctivae normal. Neck: Vascular: No carotid bruit. Cardiovascular: Rate and Rhythm: Normal rate and regular rhythm. Heart sounds: No murmur heard. Pulmonary: Effort: Pulmonary effort is normal. No respiratory distress. Breath sounds: Normal breath sounds. No wheezing or rhonchi. Musculoskeletal: General: No swelling. Normal range of motion. Cervical back: Normal range of motion. Skin: General: Skin is warm and dry. Coloration: Skin is not jaundiced. Findings: No rash. Neurological: General: No focal deficit present. Mental Status: She is alert and oriented to person, place, and time. Motor: No weakness. Gait: Gait normal. Psychiatric: Mood and Affect: Mood normal. Thought Content: Thought content normal. Judgment: Judgment normal. Assessment/Plan Problem List Items Addressed This Visit Essential hypertension ([facility]) Overview She is prescribed amlodipine and metoprolol Current Assessment & Plan BP looks good. Continue current medications and monitor Hyperlipidemia LDL goal <100 ([facility]) Overview Prescribed atorvastatin. Her LDL improved from 190 to 75 on 80 mg daily! 08/2023 LDL=53 Current Assessment & Plan -Reinforced importance of dietary modification, regular cardiovascular activity and compliance withany prescribed medication for detention management/control of lipids. High cholesterol (especially LDL) is associated with an elevated risk of cardiovascular disease. This includes coronary artery disease. stroke and peripheral vascular disease. High cholesterol has also been linked to diabetes and high blood pressure risks. By appropriately treating LDL, these risks can be reduced. Type 2 diabetes mellitus with kidney complication, without long-term current use of insulin (HCC) ([facility]) - Primary Overview Her IFG has progressed to DM (08/2023): A1c went from 6.1% in Jun 2022 to 7.0%. 12/01/2023: She made diet changes (really decreased the CHOs). She lost 10# and A1c came down to 5.9%! Advised that will change back to IFG is A1c remains <6.4% at next visit Relevant Orders POCT Glycated hemoglobin, total (Completed) Stage 3a chronic kidney disease (HCC) ([facility]/HCC) Current Assessment & Plan -We will continue to monitor your renal function for any significant decline in eGFR (which is a measure of how well your kidneys are working). We will continue to work to optimally control any underlying conditions that are associated with worsening effects on kidney function and I will adjust medications as needed due to any changes in your kidney function. Other Visit Diagnoses BMI 28.0-28.9,adult Viral upper respiratory tract infection Discussed symptomatic treatment. If worsening sx after 7-10 days, she is to notify me Health Maintenance Topic Date Due Diabetes: Hemoglobin A1C 02/29/2024 Medicare Annual Wellness (AWV) 09/20/2024 Mammogram 11/09/2024 Diabetes: Retinopathy Screening 11/23/2024 Colorectal Cancer Screening 11/15/2032 Influenza Vaccine Completed Pneumococcal Vaccine: 65+ Years Completed Immunization History Administered Date(s) Administered Influenza, High Dose Seasonal, Preservative Free 07/15/2021, 06/30/2022 Influenza, High-dose Seasonal, Quadrivalent, Preservative Free 08/28/2023 Influenza, Recombinant, injectable, preservative free 07/31/2020 Influenza, seasonal, injectable, preservative free 01/20/2016 Pfizer Purple Cap SARS-CoV-2 Vaccination 08/13/2021, 09/03/2021 Pneumococcal Conjugate PCV 13 01/28/2019 Pneumococcal Polysaccharide PPSV23 07/31/2020 Varicella 01/20/2016 Zoster, Recombinant 10/17/2019, 12/21/2019 -Patient's chronic conditions have been reviewed in preparation for this appointment. Protocols reviewed and updated. A collaborative plan of care has been created for pt regarding specific health concerns. Any barriers to care have been identified and addressed. Any part of this document that has been added/copied from other documents has been reviewed for accuracy and updated as appropriate at the time of the patient encounter. -Follow up in about 5 months (around 04/30/2024) for Routine 4-6 month visit for management of chronic conditions. Sharmaine Fletcher D.O. Board Certified [employer] documented in this encounterNorthwest Medical [id number] Evaluation note* Encounter Date Diagnosis Assessment Notes Treatment Notes Treatment Clinical Notes Sep, Left carotid stenosis (ICD-10 - I65.22) We reviewed today's carotid duplex studies which show no hemodynamically significant stenosis bilaterally. She remains asymptomatic of her carotid occlusive disease and is on good medical therapy with use of aspirin and high intensity statin medication daily. In fact she is on 80 mg statin medication daily, from vascular standpoint this could be reduced to 40 mg. Will continue to follow her along and see her again in 6 months time with repeat studies. If she remains stable at that time we will move onto annual follow-up thereafter. [employer] Other 06-19-2023 Evaluation note* Encounter Date Diagnosis Assessment Notes Treatment Notes Treatment Clinical Notes Mar, Carotid stenosis, bilateral (ICD-10 - I65.23) We reviewed today's carotid duplex studies which show no evidence of restenosis. She remains asymptomatic of her carotid occlusive disease. She has been on dual antiplatelet for 3 months now. At this point in time, we can discontinue the Plavix and just continue with daily 81 mg aspirin for its antiplatelet effects along with her high intensity statin medication. We will continue to follow her again in 6 months repeat ultrasound. She knows to call us in the meantime with any issues or concerns. [employer] Other 06-06-2023 Hospital Discharge instructions Patient Education 03/28/2023 17:56:04 24-Hour Urine Collection 24-Hour Urine Collection Why am I having this test? A 24-hour urine specimen is a lab test that requires you to collect all of your urine for an entireday. This is sometimes called a timed urine test. It can provide more information than a single urine sample. There are many reasons to have this test. Your health care provider may order the test to check foror monitor the following conditions: High blood pressure. Kidney disease. Kidney stones. Urinary tract infections. . Diabetes. How do I prepare for this test? You may be asked to follow a special diet during or before the collection period. Follow any instructions from your health care provider. If no special instructions are given, you may eat and drink normally. Take buah-gvz-ecnqrbk and prescription medicines only as told by your health care provider. Let your health care provider know about any medicines that you are taking, including lrkg-rxm-zepkvrt medicines, vitamins, herbs, and supplements. Choose a collection day when you can be at home or when you have a place to store the urine. All urine must be collected during the testing period. How do I do a 24-hour urine collection? When you get up in the morning, urinate in the toilet and flush. Write down the time. This will be your start time on the day of collection and your end time on the next morning. From the start time on, all of your urine should be kept in the collection jug that you received from the lab. If the jug that is given to you already has liquid in it, that is okay. Do not throw out the liquidor rinse out the jug. Urinate into a specimen container, such as a urinal or bautista that sits over the toilet. Pour the urine from the container into the collection jug. Be careful not to spill any of the urine. Use the equipment provided by the lab. Do not let any toilet paper or stool (feces) get into the jug. This will contaminate the sample. Stop collecting your urine 24 hours after you started. Collect the last specimen as close as possible to the end of the 24-hour period. Keep the jug cool in an ice chest or keep it in the refrigerator during collection. When the 24-hour collection is complete, take the jug to the lab as soon as possible. Keep the jug cool in an ice chest while you are bringing it to the lab. What do the results mean? Talk with your health care provider about what your results mean. Questions to ask your health care provider Ask your health care provider, or the department that is doing the test: When will my results be ready? How will I get my results? What are my treatment options? What other tests do I need? What are my next steps? Summary A 24-hour urine specimen is a lab test that requires you to collect all of your urine for an entireday. When you get up in the morning, urinate in the toilet and flush. Write down the time. For the next 24 hours, collect all of your urine in the collection jug that you received from the lab. Keep the jug cool while collecting the urine and while bringing it back to the lab. Take the jug of urine back to the lab as soon as possible after the collection period has ended. This information is not intended to replace advice given to you by your health care provider. Make sure you discuss any questions you have with your health care provider. Document Revised: 04/15/2022 Document Reviewed: 04/15/2022 [employer] Patient Education 2022 [employer]. Follow Up Care 03/16/2023 10:27:03 With:ZUNILDA URBINA, Jazmin Barrera, URL Address: [address] [place] [address]- When:1 year [facility] Evaluation note* Encounter Date Diagnosis Assessment Notes Treatment Notes Treatment Clinical Notes Dec, Carotid stenosis, bilateral (ICD-10 - I65.23) Patient has gotten along well after left TCAR procedure about a month ago. She continues taking her daily aspirin, Plavix, and statin medications daily and remains asymptomatic of her carotid occlusive disease. We will continue the Plavix for at least 3 months. We will continue to follow her along closely and have her back again in a couple of months with surveillance duplex studies. She knows to call us in the meantime with any issues or concerns. [employer] Other 08-09-2022 Evaluation note* Encounter Date Diagnosis Assessment Notes Treatment Notes Treatment Clinical Notes May, Carotid stenosis, bilateral (ICD-10 - I65.23) This patient came to the office today with concern over a very brief episode of right tongue numbness. She also tells me of some very brief right leg weakness and right arm tingling minutes before the right tongue numbness. This happened a few weeks ago. She was evaluated by her primary care doctor, labs were drawn, and she was found to have elevated potassium at that time. This may have led to some of the symptoms. On extensive questioning today, she denies any repeat episodes of hemispheric symptoms.. She denies any amaurosis fugax, hemispheric weakness, and aphasia. She is on good medical therapy with use of aspirin, Plavix, and statin medications daily. We will repeat her duplex and continue to follow her along Closely. We reviewed signs and symptoms of carotid occlusive disease and when would be appropriate to return for further evaluation prior to neck scheduled appointment. She verbalizes understanding of all discussion, agrees with this plan, denies any questions. [employer] Other Discharge summary Author Scott Sellers [facility] December 23, 2022 8:30am Note Date/Time December 23, 2022 8:30 am [facility] [address] [place], [place] [id number] Discharge Summary Signed Patient: Sarah Jimenez MR#: [id number] : 1950 Acct:[id number] Age/Sex: 72 / F Adm Date: 3 Loc: Room: [address] [place] [address]: Scott Sellers MD Copies to: MD Sharmaine Rao,DO~ Providers Date of Discharge: 12/23/22 Discharging Provider: Scott Sellers Primary Care Provider: Sharmaine Fletcher Consults: 12/22/22 10:18 Consult to Sleep Lab Stat Discharge Diagnosis Final Diagnosis Final Discharge Diagnosis: Greater than 70% left internal carotid artery stenosis Summary Hospital Course Hospital course: Patient was admitted to the hospital and underwent transcarotid stenting withoutdifficulty. No events occurred overnight. Condition Condition at Discharge: Stable Status at Discharge Cognitive/behavioral status at discharge: Normal Functional status at discharge: independent ambulation Time Spent with Patient Time spent providing/coordinating discharge services (# min): 30 Surgeries and Procedures Operation Date: 12/22/22 11:45 Actual Procedures p OR Left TCAR(Left) - Scott Sellers MD Diagnostic Studies Completed and Pending Studies Labs on day of discharge: 12/23/22 04:05: PT 12.9, INR 1.1 12/22/22 11:40: Activated Clotting Time 293 H 12/22/22 11:23: Activated Clotting Time 131 12/22/22 10:11: PT 11.7, INR 1.0, APTT 19.5 L Exam Physical Exam Vital Signs: Temp Pulse Resp BP Pulse Ox O2 Del Method O2 Flow Rate 98 F 70 14 102/53 L 95 Nasal Cannula 2 12/23/22 04:00 12/23/22 04:00 12/23/22 04:00 12/23/22 04:00 12/23/22 04:00 12/23/22 04:00 12/23/22 04:00 Discharge Plan Discharge Plan Comment: Keep wound dry for 3 days Prescriptions: No Action cyanocobalamin (vitamin B-12) [Vitamin B-12] 2,500 mcg Tablet, Sublingual 2,500 mcg PO DAILY clopidogrel 75 mg tablet 75 mg PO DAILY Patient Comments: TAKE 1 TABLET orally once a day 90 days acetaminophen [Tylenol Ex Str Arthritis Pain] 500 mg Tablet 1,000 mg PO BID PRN (Reason: Pain) cholecalciferol (vitamin D3) [Vitamin D3] 25 mcg (1,000 unit) Tablet,Chewable 25 mcg PO DAILY Multivitamin Women 50 Plus 8 mg iron-400 mcg-300 mcg Tablet 1 tab PO DAILY metoprolol succinate 100 mg tablet extended release 24 hr 100 mg PO DAILY Patient Comments: take 1 and 1/2 tablets by mouth once daily escitalopram oxalate 10 mg tablet 10 mg PO DAILY Patient Comments: take 1 tablet by mouth once daily atorvastatin 80 mg Tablet 80 mg PO QPM 30 Days Qty: 30 0RF aspirin [Children's Aspirin] 81 mg Tablet,Chewable 81 mg PO DAILY 30 Days Qty: 30 0RF amlodipine 5 mg tablet 5 mg PO DAILY Qty: 30 0RF Klor-Con/EF 25 mEq tablet, effervescent 25 meq PO DAILY Qty: 0 0RF Patient Comments: DISSOLVE 1 TABLET IN WATER OR JUICE AND DRINK TWICE A DAY Follow Up: Scott Sellers MD [Active Staff] - (Call for appointment. I would like to see you in 1 month if no problems before) Documented By: Scott Sellers MD 12/23/22 082 9 Signed By: <Electronically signed by MD Scott Sellers> 12/23/22 0830 [facility] Work Phone: Evaluation + Plan note Future Appointments Appointment Date:03/28/2024 11:00:00 AM Scheduled Provider:CARLA ABRAHAM PA-C [place] [place] Appointment Type:URO Office Visit [facility] evaluation + Plan note Future Appointments Appointment Date:03/28/2024 11:00:00 AM Scheduled Provider:CARLA ABRAHAM PA-C [place] [place] Appointment Type:URO Office Visit Diagnostic Tests Pending * eGFR 03/28/23 [facility] assessment information available [facility] Work Phone: Evaluation noteNo InformationNort [employer] Other Evaluation note* Diagnosis Type 2 diabetes mellitus with stage 3a chronic kidney disease, without long-term current use of insulin (HCC) ([facility])- Primary Stage 3a chronic kidney disease (HCC) ([facility]) Hyperlipidemia LDL goal <100 ([facility]) Other and unspecified hyperlipidemia Essential hypertension ([facility]) Unspecified essential hypertension BMI 28.0-28.9,adult Viral upper respiratory tract infection Acute upper respiratory infections of unspecified site documented in this encounter [facility] Diagnosis Onset Date Resolution Status Carotid stenosis, bilateral acute Non-smoker acute [facility] Work Phone: Evaluation note* Diagnosis Onset Date Resolution Status Carotid stenosis, bilateral acute Non-smoker acute Accelerated hypertension acu te Arthritis acute Carotid stenosis, bilateral acute Hypercholesteremia acute Hypertension acute Poisoning by vitamins, accid ental (unintentional), initial encounter acute TIA (transient ischemic attack) acute Transient cerebral ischemia acute [facility] Work Phone: History and physical note Author Marvin Iglesias [facility] May 04, 2024 9:30pm Note Date/Time May 04, 2024 9:29 pm [facility] [address] [place] [address] Hospitalist H&P Signed Patient: Sarah Jimenez MR#: [id number] : 1950 Acct:[id number] Age/Sex: 74 / F Adm Date: 4 Loc: Room: [address] [place] [address] Type: ADM INOo Attending Dr: Marvin Iglesias DO Copies to: DO Sharmaine Mehta DO~ HPI DATE OF EXAMINATION: 05/04/24 CHIEF COMPLAINT: Sudden weakness and numbness of the right arm and hand. HISTORY OF PRESENT ILLNESS: This is is a 74-year-old woman who was at home and is in her usual state of health when suddenly she had difficulty using her right hand. She had numbness extending up to the elbow. She went to carry a cup of ice and it was spilling all over the place. She could not control the hand. She was dropping the cup. She went to go take her blood pressure and her blood pressure number was pretty good. She gave herself one of her own 81 mg aspirins. She then went to try andmanipulate a bag of chips and it was spilling all over the place. All of this occurred 30 minutes prior to arrival. After about 15 minutes of the symptoms did begin to get better. By time she was checked out by the emergency room, allof the deficits seem to be gone. In the emergency room CT scan of her head showed age-related changes but no acute changes and CT angiography showed patent stent in the left carotid artery and the right carotid artery is 50% plaque. The emergency room made contact with the [facility] stroke neurointerventional team who recommended that the patient be provided with Plavix 75 mg, and admitted here for a nonemergent MRI. The patient does have a history of a transient ischemic attack back in on February 08, 2021. At that time the carotid artery stenosis on the left was discovered. Her symptoms at that time were right tongue numbness and right perioral numbnessand slurred speech. Since getting the carotid artery procedure (TCAR) she had been taking aspirin and Plavix and statin, but believes that she stopped taking the Plavix for several months now, possibly even 6 months or a year ago. She says that her blood pressures are always well-controlled. She has been compliant with all of her medications. She is continue to take aspirin 81 mg daily. The emergency room did discover that she has been taking a new supplement that one of her family members recommended for arthritis called PATY. Doing some Google searching online I found that this is a supplement that is supposed to contain hyaluronic acid to help with arthritis pain. However there is an FDA advisory from 04/05/2024 that this contains diclofenac and omeprazole which can cause medication interactions, especially the formulation of this which comes from [employer]. I showed the patient and her family members the bottle on my phoneand they said that is the exact product that she has been using. The patient states that for her left knee arthritis she was using naproxen but it was really making my stomach feel like it was torn up. So she stopped the naproxen. She said that taking this UMARY supplement was by far and away the most effective thing she ever took for her arthritis pain and she said that she has felt pain-free for the week or 2 that she has been taking it. When the ER had ordered her to take Plavix the patient initially refused because she was worried that it would interact with this supplement. I told the patient that she should stop taking the supplement that she really should take the Plavix right now. The following is the information from the Food and drug administration website regarding UMARY: [04-05-2024]?The Food and Drug Administration is advising consumers not to purchase or use Umary, a product promoted and sold for pain on various websites, including?https://www.[employer]urr and possibly in some retail stores. FDA laboratory analysis confirmed that Umary contains diclofenac and omeprazole, which are not listed on the product label. Diclofenac is a non-steroidal anti-inflammatory drug (commonly referred to as NSAIDs). NSAIDs may cause increased risk of cardiovascular events, such as heart attack and stroke, as well as serious gastrointestinal damage, including bleeding, ulceration, and fatal perforation of the stomach and intestines. This hidden drug ingredient may also interact with other medications and significantly increase the risk of adverse events, particularly when consumers use multiple NSAID- containing products. Omeprazole is a proton pump inhibitor (commonly referred to as PPI) used to treat gastric (stomach) acid-related disorders. PPI medicines may cause serious skin reactions, abdominal pain, diarrhea, nausea, and headache. This hidden ingredient may mask stomach issues such as erosions, ulcers, and stomach cancer, and it can also interact with other medications and should not be taken with certain medications.? Health hospice care consultant and consumers should report adverse events or side effects related to the use of this product to FDA's [employer] Safety Information and Adverse Event Reporting Program: I, Dr. Iglesias, did go ahead and complete the [employer] Online Voluntary Reporting Form for this incident. Review of Systems Review of Systems Review of systems: 10 systems are reviewed and are negative except as mentioned elsewhere in the documentation. [facility] Medical History (Updated 05/04/24 @ 21:25 by Marvin Iglesias DO) TIA (transient ischemic attack) Kidney stones Hypertension Symptomatic stenosis of left carotid artery Other headache syndrome Occlusion and stenosis of bilateral carotid arteries Mixed hyperlipidemia Macular degeneration Left carotid stenosis Generalized arthritis Carotid stenosis, bilateral Right foot pain .receive steroid injection Kidney stones dr antonio Hypercholesteremia TIA (transient ischemic attack) Anxiety Arthritis Hypertension Surgical History History of transcarotid artery revascularization (TCAR) Left History of left-sided carotid endarterectomy H/O colonoscopy History of hysterectomy History of tonsillectomy History of blepharoplasty History of cataract surgery History of cholecystectomy Family History Father Hypertension Heart disease Mother Diabetes Advanced cirrhosis of liver Stroke Father Heart disease Mother Diabetes Sister Hypertension Heart disease Diabetes Social History Smoking Status: Never smoker Substance Use Type: None Meds Medications and Allergies Allergies No Known Drug Allergies Allergy (Unknown, Verified 05/04/24 16:10) Unknown Reaction Home Medications escitalopram oxalate 10 mg tablet 10 mg PO DAILY 02/07/21 [History Confirmed 05/04/24] metoprolol succinate 100 mg tablet,extended release 24 hr 100 mg PO DAILY 02/07/21 [History Confirmed 05/04/24] amlodipine 5 mg tablet 5 mg PO DAILY #30 tabs 02/08/21 [Rx Confirmed 05/04/24] aspirin 81 mg chewable tablet (Children's Aspirin) 81 mg PO DAILY 30 days #30 tabs 02/08/21 [Rx Confirmed 05/04/24] atorvastatin 80 mg tablet 80 mg PO QPM 30 days #30 tabs 02/08/21 [Rx Confirmed 05/04/24] acetaminophen 500 mg tablet 1,000 mg PO BID PRN Pain 12/14/22 [History Confirmed 05/04/24] cholecalciferol (vitamin D3) 25 mcg (1,000 unit) chewable tablet (Vitamin D3) 25mcg PO DAILY 12/14/22 [History Confirmed 05/04/24] cwjsvlqk-houu-rdrh 8 mg-folic 400 mcg-K 50 mcg-lutein 300 mcg tablet (Multivitamin Women 50 Plus) 1 tab PO DAILY 12/14/22 [History Confirmed 05/04/24] umary 1 tab PO DAILY 05/04/24 [History Confirmed 05/04/24] Exam Physical Exam Vital Signs: Temp Pulse Resp BP Pulse Ox O2 Del Method 98.2 F 62 18 161/72 H 98 Room Air 05/04/24 16:14 05/04/24 20:19 05/04/24 20:19 05/04/24 20:19 05/04/24 20:19 05/04/24 20:19 Narrative: GEN: Awake, alert, oriented x 3. Head: Normal Cephalic, Atraumatic. Eyes: Conjunctiva and sclera clear bilaterally. EOMI. PERRLA. Nose: External nose and nares normal bilaterally. Do not see any nasolabial fold abnormalities or asymmetry. Mouth: Lips and tongue normal. Tongue protrudes in the midline. Neck: No JVD. No thyromegaly. No lymphadenopathy. Lungs: Clear to auscultation bilaterally, no wheezing, no crackles. Heart: Regular rate and rhythm, no murmurs, rubs, or gallops. Abdomen: Soft, normal bowel sounds, no rigidity, guarding, or acute peritoneal signs. Extremities: No swelling or cords in the calves bilaterally, no edema in the ankles bilaterally. Skin: No systemic rashes or lesions. Psychiatric: Calm. Conversant. Cooperative. Neuro: Moves all 4 extremities extremely well so I detect no focal or lateralizing deficits. Results - Hospitalist H&P Lab Results Labs: Laboratory Last Values Corrected WBC 16.4 X10E3/uL (3.8-11.6) H 05/04/24 16:10 Uncorrected WBC Count 16.4 x10E3/uL (3.8-11.6) H 05/04/24 16:10 RBC 4.45 X10E6/uL (3.60-5.00) 05/04/24 16:10 Hgb 14.4 g/dL (11.8-15.4) 05/04/24 16:10 POC Hgb 16.0 g/dl (12.0-17.0) 05/04/24 16:13 Hct 42.0 % (34.0-46.4) 05/04/24 16:10 POC Hct 47.0 % (38.0-51.0) 05/04/24 16:13 MCV 94.4 fl (80-100) 05/04/24 16:10 MCH 32.2 pg (24.7-34.3) 05/04/24 16:10 MCHC 34.2 g/dL (32.0-35.0) 05/04/24 16:10 RDW 13.0 % (11.9-15.3) 05/04/24 16:10 Plt Count 264 x10E3/uL (150-450) 05/04/24 16:10 MPV 8.2 fl (6.3-10.7) 05/04/24 16:10 Neut % (Auto) 76.3 % (.) 05/04/24 16:10 Lymph % (Auto) 13.3 % (.) 05/04/24 16:10 [place] % (Auto) 7.6 % (.) 05/04/24 16:10 Eos % (Auto) 1.9 % (.) 05/04/24 16:10 Baso % (Auto) 0.9 % (.) 05/04/24 16:10 Nucleat RBC Rel Count 0.1 /100 WBC (0-0.5) 05/04/24 16:10 Neut # (Auto) 12.5 x10E3/uL (1.8-7.7) H 05/04/24 16:10 Lymph # (Auto) 2.2 x10E3/uL (1.00-4.8) 05/04/24 16:10 [place] # (Auto) 1.2 x10E3/uL (0.0-0.8) H 05/04/24 16:10 Eos # (Auto) 0.3 x10E3/uL (0.0-0.45) 05/04/24 16:10 Baso # (Auto) 0.1 x10E3/uL (0.0-0.2) 05/04/24 16:10 Monocyte Dist Width 17.82 % (0.00-20.00) 05/04/24 16:10 PT 10.8 Seconds (9.0-12.9) 05/04/24 16:10 INR 0.9 05/04/24 16:10 APTT 25.5 Seconds (25.1-36.5) 05/04/24 16:10 PHA Creatinine Clear 40.72 05/04/24 16:10 POC Sodium 138 mmol/L (138-146) 05/04/24 16:13 Sodium 136 mmol/L (136-145) 05/04/24 16:10 POC Potassium 4.5 mmol/L (3.5-4.9) 05/04/24 16:13 Potassium 4.5 mmol/L (3.5-5.1) 05/04/24 16:10 POC Chloride 104.0 mmol/L (98-109) 05/04/24 16:13 Chloride 105 mmol/L (98-107) 05/04/24 16:10 Carbon Dioxide 23.5 mmol/L (21.0-31.0) 05/04/24 16:10 POC Total CO2 28 mmol/L (23-29) 05/04/24 16:13 Anion Gap 12.0 mEq/L (6.0-15.0) 05/04/24 16:10 POC BUN 27 mg/dl (8-26) H 05/04/24 16:13 BUN 26 mg/dL (7-25) H 05/04/24 16:10 Creatinine 1.14 mg/dL (0.60-1.20) 05/04/24 16:10 POC Creatinine 1.1 mg/dl (0.6-1.3) 05/04/24 16:13 Est GFR (CKD-EPI) 51.148 mL/Min 05/04/24 16:10 Glucose 133 mg/dL (70-100) H 05/04/24 16:10 POC Whole Bld Glucose 135 mg/dl (70-105) H 05/04/24 16:13 POC Glucose 127 mg/dl 05/04/24 16:06 Lactic Acid 1.3 mmol/L (0.5-2.2) 05/04/24 17:33 Calcium 9.2 mg/dL (8.6-10.3) 05/04/24 16:10 POC Ioniz Calcium Sudhakar 1.18 mol/L (1.12-1.32) 05/04/24 16:13 Total Bilirubin 0.7 mg/dl (0.3-1.0) 05/04/24 16:10 AST 35 U/L (13-39) 05/04/24 16:10 ALT 53 U/L (7-52) H 05/04/24 16:10 Alkaline Phosphatase 61 U/L (34-104) 05/04/24 16:10 Total Creatine Kinase 65 U/L (30-223) 05/04/24 16:10 Troponin I High Sens 3.6 pg/mL (0.0-15.0) 05/04/24 16:10 Total Protein 6.9 gm/dL (6.4-8.9) 05/04/24 16:10 Albumin 4.2 gm/dL (3.5-5.7) 05/04/24 16:10 Globulin 2.7 gm/dL 05/04/24 16:10 Albumin/Globulin Ratio 1.6 05/04/24 16:10 Urine Color Yellow (Yellow) 05/04/24 16:31 Urine Appearance Clear (Clear) 05/04/24 16:31 Urine pH 5.5 (5.0-9.0) 05/04/24 16:31 Ur Specific Hector > 1.050 (1.001-1.030) H 05/04/24 16:31 Urine Protein Negative mg/dL (Negative) 05/04/24 16:31 Urine Glucose (UA) Normal mg/dL (Normal) 05/04/24 16:31 Urine Ketones Trace (Negative) H 05/04/24 16:31 Urine Occult Blood Negative (Negative) 05/04/24 16:31 Urine Nitrite Negative (Negative) 05/04/24 16:31 Urine Bilirubin Negative (Negative) 05/04/24 16:31 Urine Urobilinogen Normal mg/dL (Normal) 05/04/24 16:31 Ur Leukocyte Esterase Negative (Negative) 05/04/24 16:31 SARS-CoV-2 Rap RNA(RT-PCR) Negative (Negative) 05/04/24 16:31 Microbiology Results Micro: Microbiology - Results from entire visit 05/04/24 16:31 Nasopharyngeal SARS-CoV-2, Influenza & RSV (PCR) - Final Assessment & Plan Assessment/Plan (1) Transient cerebral ischemia: (2) Hypercholesteremia: (3) Hypertension: (4) Arthritis: (5) Accelerated hypertension: (6) Carotid stenosis, bilateral: (7) Poisoning by vitamins, accidental (unintentional), initial encounter: Plan Transient cerebral ischemia. Right upper extremity (dominant side) numbness and weakness and poor coordination. History of carotid artery surgery on the left (TCAR) about 3 years ago. Clinically I suspect accelerated hypertension due to NSAIDs and the supplement that she was using. Has she been using Plavix while taking the supplement the effect of the Plavix would have been reduced. Plan: Placement in the hospital and observation status. Continuous telemetry monitoring. Consult to neurology. MRI of the brain without contrast. Echocardiogram. Check lipid panel which should be fasting. Check hemoglobin A1c. IV Lopressor to help her bring systolic blood pressure lower than 150. Adding Plavix 75 mg back to her aspirin 81 mg. It is uncertain but is believed that she has been away for Plavix for between 3 and 6 months, but possibly more. Lovenox 40 mg subcutaneously daily for DVT prophylaxis. IP vs OBS Justification Based on differential dx, clinical care plan, and risk of adverse events, if untreated, in my clinical judgement this patient requires an acute care setting as: OBSERVATION because of an expectation of an under 2 midnight stay. Estimated length of stay (# of days): 3 Documented By: Marvin Iglesias DO [id number] Signed By: <Electronically signed by Marvin Iglesias DO> 05/04/242129 [facility] Work Phone: [facility] general Narrative - Reported* Type Description Date Medical History HYPERTENSION Medical History GENERALIZED ARTHRITIS Medical History KIDNEY STONES Medical History MACULAR DEGENERATION Medical History CAROTID STENOSIS Surgical History LITHOTRIPSY X3 Surgical History HYSTERECTOMY Surgical History CHOLECYSTECTOMY Surgical History TONSILLECTOMY Surgical History CATARACT SUGERY (BILAT) Hospitalization History kidney stones/ Infection x1 week stay 1994 Hospitalization History TIA 01/2021 [employer] Other [email or web address] general Narrative - Reported* Type Description Date Medical History HYPERTENSION Medical History GENERALIZED ARTHRITIS Medical History KIDNEY STONES Medical History MACULAR DEGENERATION Medical History CAROTID STENOSIS Surgical History LITHOTRIPSY X3 Surgical History HYSTERECTOMY Surgical History CHOLECYSTECTOMY Surgical History TONSILLECTOMY Surgical History CATARACT SUGERY (BILAT) Surgical History Eyelid Lift Hospitalization History kidney stones/ Infection x1 week stay 1994 Hospitalization History TIA 01/2021 [employer] Other [facility] general Narrative - Reported* Type Description Date Medical History HYPERTENSION Medical History GENERALIZED ARTHRITIS Medical History KIDNEY STONES Medical History MACULAR DEGENERATION Medical History CAROTID STENOSIS Surgical History LITHOTRIPSY X3 Surgical History HYSTERECTOMY Surgical History CHOLECYSTECTOMY Surgical History TONSILLECTOMY Surgical History CATARACT SUGERY (BILAT) Surgical History Eyelid Lift Surgical History TCAR Left Side 12/22/3022 Hospitalization History kidney stones/ Infection x1 week stay 1994 Hospitalization History TIA 01/2021 [employer] Other History general Narrative - Reported* Type Description Date Medical History HYPERTENSION Medical History GENERALIZED ARTHRITIS Medical History KIDNEY STONES Medical History MACULAR DEGENERATION Medical History CAROTID STENOSIS Medical History DIABETIC Surgical History LITHOTRIPSY X3 Surgical History HYSTERECTOMY Surgical History CHOLECYSTECTOMY Surgical History TONSILLECTOMY Surgical History CATARACT SUGERY (BILAT) Surgical History Eyelid Lift Surgical History TCAR Left Side 12/22/2022 Surgical History Left CEA 08/2023 Hospitalization History kidney stones/ Infection x1 week stay 1994 Hospitalization History TIA 01/2021 [employer] Other Hospital course Narrative No data available for this section [facility] Hospital Discharge instructions Additional Instructions If your symptoms return/worsen or you develop any further concerns or symptoms please see your doctor or return to the emergency department immediately.[facility] Work Phone: Hospital Discharge instructions No data available for this section [facility] No data available for this section [facility] Summary Purpose Family History No Family History Records Found Relationship Condition Age at Onset Recorded Date/T kumar Not Specified Hypertension Unknown Relationship Condition Age at Onset Recorded Date/T kumar father Hypertension Unknown Heart disease Unknown Not Specified Diabetes mellitus Unknown Advanced cirrhosis of liver Unknown Cerebrovascular accident (CVA) Unknown Relationship Condition Age at Onset Recorded Date/T kumar father Hypertension Unknown Heart disease Unknown Not Specified Diabetes mellitus Unknown Advanced cirrhosis of liver Unknown Cerebrovascular accident (CVA) Unknown father Heart disease Unknown Unknown Not Specified Unknown Diabetes mellitus Unknown sister Hypertension Unknown Relationship Condition Age at Onset Recorded Date/T kumar father Hypertension Unknown Heart disease Unknown mother Diabetes mellitus Unknown Advanced cirrhosis of liver Unknown Cerebrovascular accident (CVA) Unknown father Heart disease Unknown Unknown mother Unknown Diabetes mellitus Unknown sister Hypertension Unknown Advance Directives No Advanced Directives Records Found Advance Directive Response Recorded Date/ Time Advance Directives No February 07 4:20pm Advance Directive Response Recorded Date/ Time Advance Directives No February 07 3:20pm Chief Complaint and Reason for Visit Chief Complaint I10 R53.83 E53.8 e87.5 i65.23 Kidney Stones G45.9 Chief Complaint I10 R53.83 E53.8 e87.5 i65.23 Kidney Stones G45.9 I10 Chief Complaint SOB Chief Complaint SOB Pre-Surgical Testing, dermatochalasis Chief Complaint SOB Pre-Surgical Testing, dermatochalasis i65.23 Chief Complaint SOB Pre-Surgical Testing, dermatochalasis i65.23 Carotid Stenosis Chief Complaint SOB Pre-Surgical Testing, dermatochalasis i65.23 Carotid Stenosis Carotid Stenosis Chief Complaint Screening I65.23 Chief Complaint I10 E78.5 R73.01 Chief Complaint I10 E78.5 R73.01 i65.23 Chief Complaint 6 MO CAR U/S 11A I65.23 Chief Complaint 6 MO CAR U/S 11A I65.23 Reason for Visit Carotid stenosis, bi lateral Non-smoker Chief Complaint 6 MO CAR U/S 11A I65.23 right side numbness Reason for Visit Carotid stenosis, bi lateral Non-smoker Accelerated hypertension Arthritis Carotid stenosis, bilateral Hypercholesteremia Hypertension Poisoning by vitamins, accidental (unintentional), initial encounter TIA (transient ischemic attack) Transient cerebral ischemia Additional Source Comments INFORMATION SOURCE (unrecogn ized section and content) DATE CREATED AUTHOR 12/11/2020 [facility] DATE CREATED AUTHOR AUTHOR'S ORGANIZ ATION 02/23/2022 [facility] Special[facility] DATE CREATED AUTHOR AUTHOR'S ORGANIZ ATION 03/29/2024 [facility] ical Center DATE CREATED AUTHOR AUTHOR'S ORGANIZ ATION 05/12/2024 [facility] Specialists EPIC DATE CREATED AUTHOR AUTHOR'S ORGANIZ ATION 05/16/2024 [facility] y[facility] Group REASON FOR VISIT (unrecogniz ed section and content) Reason Comments Routine 3 Mo Follow-up Care Teams (unrecognized sec tion and content) Team Status: Inactive Member Role Status Dates Sharmaine Fletcher , DO Primary Care Provider Active Jazmin Antonio MD Attending Provider Active Team Status: Inactive Member Role Status Dates Sharmaine Fletcher , DO Primary Care Provider Active RACHEL LynnC Attending Provider Active Team Status: Inactive Member Role Status Dates Sharmaine Fletcher , DO Primary Care Provider, Attend ing Provider Active Team Status: Inactive Member Role Status Dates Sharmaine Fletcher , DO Primary Care Provider Active My Alvarado PA-C Attending Provider Active Team Status: Active Member Role Status Dates Sharmaine DamianKe , DO Primary Care Provider Active Team Status: Inactive Member Role Status Dates Sharmaine Gómezy , DO Primary Care Provider Active Delfino Goncalves , DO Emergency Provider Active Team Status: Inactive Member Role Status Dates Sharmaine Daliay , DO Primary Care Provider Active Christiano Murillo MD Attending Provider Active Team Status: Inactive Member Role Status Dates Sharmaine RickieKe , DO Primary Care Provider Active Scott Sellers MD Attending Provider Active Team Status: Inactive Member Role Status Dates Sharmaine RickieZoyaWarsaw , DO Primary Care Provider Active Scott Sellers MD Admit Provider, Attending Provide r Active Team Status: Inactive Member Role Status Sharmaine RickieZoyaWars[place] , DO Primary Care Provider Active Zesu Dolan MD Attending Provider Active [employer] Relationship Specialty Start Date End Date ToniSharmaine Guajardo DO [address] [facility] [address] [place] [address] PCP - ACO Reach 03/16/23 Damian-Sharmaine Guajardo DO [address] [facility] [address] [place] [address] PCP - General Internal Medicine 12/01/23 Dax De Oliveira MD [address] [place] [address] Referring Physician Ophthalmology 09/20/23 Jazmin Antonio MD [address] [place] [address] Referring Physician Urology 09/20/23 Scott Sellers MD [address] [facility] [address] [place] [id number] Referring Physician Vascular Surgery 09/20/23 Team Status: Inactive Member Role Status Dates Sharmaine Fletcher , DO Primary Care Provider Active Start: April 09, 2024 End: April 09, 2024 Scott Sellers MD Attending Provider Active S tart: April 09, 2024 End: April 09, 2024 Team Status: Active Member Role Status Dates Sharmaine Fletcher , DO Primary Care Provider Active Start: April 09, 2024 Scott Sellers MD Attending Provider Active S tart: April 09, 2024 Team Status: Active Member Role Status Dates Sharmaine Fletcher , Primary Care Provider Active Start: May 04, 2024 Meme Montelongo MD Emergency Provider Active Start: May 04, 2024 Marvin Iglesias DO Admit Provider , Attending Provider Active Start: May 04, 2024 Team Status: Inactive Member Role Status Sharmaine Fletcher , DO Primary Care Provider Active Start: May 04, 2024 End: May 07, 2024 Meme Montelongo MD Emergency Provider Active Start: May 04, 2024 End: May 07, 2024 Marvin Iglesias DO Admit Provider Active Start: May 04, 2024 End: May 07, 2024 Julian Diaz MD Other Provider Active Start : May 04, 2024 End: May 07, 2024 Kameron Pires MD Attending Provider Active Start : May 04, 2024 End: May 07, 2024 Goals (unrecognized section and content) Goals may be documented in a n alternate section FOR RECORDS PERTAINING TO PATIENTS WHO ARE OR HAVE BEEN ENROLLED IN A CHEMICAL DEPENDENCY/SUBSTANCEABUSE PROGRAM, SOME INFORMATION MAY BE OMITTED. This clinical summary was aggregated from multiple sources. Caution should be exercised in using it in the provision of clinical care. This summary normalizes information from multiple sources, and as a consequence, information in this document may materially change the coding, format and clinical context of patient data. In addition, data may be omitted in some cases. CLINICAL DECISIONS SHOULD BE BASED ON THE PRIMARY CLINICAL RECORDS. [facility] [employer] [facility]. provides no warranty or guarantee of the accuracy or completeness of information in this document.
== END 2024-08-01 14:27 | disposition home or self-care (01) ==
LOC: MRI 14:27
PROVIDERS: PCP Internal Medicine; Visit Provider Anesthesiology Pain Medicine
DX: M54.16 Radiculopathy, lumbar region (principal); M51.369 Other intervertebral disc degeneration, lumbar region without mention of lumbar back pain or lower extremity pain
CPT/HCPCS: 72148

== ENCOUNTER 2024-08-27 12:15 | Outpatient (OUT) | payer MEDICARE, OTHER, SELFPAY ==
--- NOTE | 2024-08-27 | CONS_ITS ---
CONSULTATION DATE: 08/27/2024 TO: Sharmaine Fletcher D.O. CHIEF COMPLAINT: Includes left knee pain, left lower extremity pain. HISTORY: She reports the pain as always being 5-7/10 pain, sharp in character in the lower back and her knee, with a deep aching component, and generally increased with activity such as weight bearing maneuvers, transitioning maneuvers, walking. She feels most comfortable in the semi-recumbent position. Denies any change in bowel and bladder habits and reports some progressive tingling, numbness and weakness of the left lower extremity. She continues to use baclofen 10 mg pills, half a pill at h.s. She reports it makes her somewhat sleepy. She denies any other side effects with the use of the medication, but she does report it is helping some of her pain symptoms, in terms of her muscle spasm. Her GABBY on today?s visit is 49%. We did review her lumbosacral MRI in quite a bit of detail. EXAM: Our examination is notable for patient having hypoesthesia along the left L5 dermatome, mild weakness of her left anterior tibialis at 3/5 strength, depressed left Achilles reflex. Straight leg raise is equivocally positive at approximately 90 degrees. She has no signs consistent with myelopathy. She has mild crepitus of the left knee joint. She also has point tenderness along the medial aspect of the left knee joint. She has no signs consistent with ligamental laxity of the left knee, and she had no appreciable J-sign on the left side. IMPRESSION: Our impression is patient with chronic pain secondary to left L5 radiculopathy, spinal stenosis; left knee pain secondary to degenerative joint disease. RECOMMENDATIONS: I have recommended a left knee joint injection. Of note, status post of which she reports a dramatic reduction in pain symptoms of the left knee joint. I recommend she undergo an epidural injection at L4-5 under fluoroscopic guidance. Will obtain x-rays of the left knee. I have placed her on Zonegran 50 mg at h.s., and I have asked her to reduce the use of baclofen 10 mg pills to ? pill at h.s. As part of providing excellent, safe, comprehensive care, the following was completed at our patient's visit: 1. A medication reconciliation and review to ensure accurate knowledge of current/active medications, including asking our patients to inform us about any [id number] medications or herbal remedies/nutritional supplements/alternative remedies. 2. A review to specifically ensure our patients have had annual screening for: elevated body mass index (BMI, see intake chart for exact total), tobacco use, screening for depression, and screening for unhealthy alcohol use. When screening is concerning, patients are provided with education and the specific recommendation to discuss the concerning health issue and treatment options with their primary care provider. MARIA E
--- NOTE | 2024-08-27 | CONS_ITS ---
PROCEDURE DATE: 08/27/2024 PROCEDURE: Left knee joint injection. PREOPERATIVE DIAGNOSIS: Pain secondary to degenerative joint disease, osteoarthrosis left knee joint. POSTOPERATIVE DIAGNOSIS: Pain secondary to degenerative joint disease, osteoarthrosis left knee joint. SOLUTION USED FOR INJECTION: 2 mL of 2% lidocaine, 2 mL of 0.25% Marcaine and 20 mg of Kenalog, total of 5 mL. IMMEDIATE COMPLICATIONS: None. PROCEDURE: After informed consent was obtained from the patient, placed in a sitting position. Skin overlying the area was prepped with alcohol. A 25 gauge, 1 ?? needle was inserted into the left knee joint space, medial aspect. After encountering same, no indication of intravascular or intraneural needle placement. 5 mL of solution was injected. Post-op needle was removed. She reports a dramatic reduction in the left knee joint pain. MARIA E
== END 2024-08-27 12:16 | disposition home or self-care (01) ==
LOC: PM 12:16
PROVIDERS: PCP Internal Medicine; Visit Provider Anesthesiology Pain Medicine
DX: M25.562 Pain in left knee (principal); M17.12 Unilateral primary osteoarthritis, left knee
CPT/HCPCS: 20610; 73564; J0665; J3301

== ENCOUNTER 2024-08-27 13:08 | Outpatient (OUT) | payer MEDICARE, OTHER, SELFPAY ==
--- NOTE | 2024-08-27 | XR_ITS ---
[facility] [place] [id number] Patient Name: SARAH JIMENEZ MRN: [id number] date: 1950 Sex: F Assigned Patient Location: [facility] Current Patient Location: [facility] Accession/Order Number: [id number] Exam Date: 08/27/2024 13:15 Report Date: 08/27/2024 15:53 At the request of: WES FERGUSON Procedure: XR knee LT 4V PROCEDURE: XR knee LT 4V COMPARISON: None. HISTORY: Left knee pain FINDINGS: BONES:No acute fracture or dislocation. Moderate to severe tricompartmental osteoarthropathy with joint space narrowing and marginal osteophyte formation. There is moderate to severe narrowing of the medial joint space SOFT TISSUES:Negative. No visible soft tissue swelling. EFFUSION:Mild joint effusion OTHER: Vascular calcification XR/XR knee LT 4V IMPRESSION: Moderate to severe osteoarthritis Electronically authenticated by: TL JORDAN Date: 08/27/2024 15:53
== END 2024-08-27 13:09 | disposition home or self-care (01) ==
LOC: RAD 13:13
PROVIDERS: PCP Internal Medicine; Visit Provider Anesthesiology Pain Medicine
DX: M25.562 Pain in left knee (principal); M17.12 Unilateral primary osteoarthritis, left knee
CPT/HCPCS: 73564

== ENCOUNTER 2024-09-10 07:41 | Day surgery (SDC) | payer MEDICARE, OTHER, SELFPAY ==
--- OUTSIDE RECORDS SUMMARY | 2024-09-10 07:46 | XMS_ITS | CCD ---
Author Organization [facility] Care Team Providers Care Cover Remover Name Role Phone JAZMIN MAURO Admitting Unavailable JAZMIN MAURO Consulting Unavailable JAZMIN MAURO Attending Unavailable NIDA SEXTON Primary Care Unavailable TL JORDAN V Consulting Unavailable Carissa Dias Unavailable DO Sharmaine Wong Primary Care Provider DO Sharmaine Wong Attending Provider NADER Dias Attending Provider MD Jazmin Mauro Attending Provider [phone] SHALONDA Alvarado Attending Provider DO Sharmaine Wong Primary Care Provider DO Delfino Goncalves Emergency Provider [phone] MD Christiano Murillo Attending Provider NADER Dias Attending Provider MD Scott Sellers Attending Provider Zeus Dolan Unavailable MD Scott Sellers Admit Provider Scott Sellers Unavailable SHARMAINE WONG Primary Care Physician [phone] DO Sharmaine Wong Primary Care Provider MD Zeus Dolan Attending Provider NADER Dias Attending Provider Damian-[place], DO Sharmaine Primary Care Provider Damian[place], DO Sharmaine Attending Provider [phone] NADER Dias Attending Provider Damian[place] DO, Sharmaine D Unavailable Alvino URBINA, Dax Lopes Unavailable Zunilda URBINA, Jazmin Barrera Unavailable [phone] Scott Sellers MD Unavailable [phone] Damian-[place] DO, Sharmaine D Primary Care Provider SHALONDA JON Attending Unavailab le Damian[place], DO Sharmaine Primary Care Provider [phone] MD Scott Sellers Attending Provider [phone] MD Meme Montelongo Emergency Provider DO Harris Marvin Admit Provider [phone] DO Harris Marvin Attending Provider [phone] MD Julian Diaz Other Provider MD Kameron Pires Attending Provider Damian[place], Sharmaine Primary Care Unavailable Carissa Dias Attending Unavailable Carissa Dias Admitting Unavailable Damian[place], Sharmaine Primary Care Unavailable Scott Sellers Attending Unavailable Scott Sellers Admitting Unavailable Damian-[place], Sharmaine Primary Care Unavailable Julian Diaz Consulting Unavailable Domingo Iglesiasistopher Admitting Unavailabl e Kameron Pires Attending Unavailable Damian[place], Sharmaine Admitting Unavailable Damian[place], Sharmaine Attending Unavailable Damian[place], Sharmaine Primary Care Unavailable ESTELA HANNAH Attending Unavailable AFIA LEON Referring Unavailable DAMIAN-EMERY, SHARMAINE D Attending Unavailab le DAMIAN-EMERY, SHARMAINE D Referring Unavailab le DAMIAN-EMERY, SHARMAINE D Attending SHARMAINE Claudio Referring SHARMAINE Claudio Attending SHARMAINE Claudio Attending SHARMAINE Claudio Referring AMBROSIO Reno Attending Unavailable Medications Current Medications Medication Drug Class(es) [...] Dihydropyridine Calcium Channel Giovani Start: 02-08-2021 take 1 tablet by mouth once daily amLODIPine (Norvasc) 5 MG tablet Indications: Essential (primary) hypertension (CMS/HCC) TAKE 1 TABLET BY MOUTH EVERY DAY 90 tablet 3 02/12/2024 Active aspirin 81 mg chewable tablet (20 sources) [...] sources) HMG-CoA Reductase Inhibitor Start: 02-08-2021 take 1 tablet by mouth once daily atorvastatin (Lipitor) 80 MG tablet Indications: Hyperlipidemia, unspecified (CMS/HCC) TAKE 1 TABLET BY MOUTH EVERY DAY 90 tablet 3 02/12/2024 Active cholecalciferol 0.025 mg chewable tablet (9 sources) Vitamin D Start: 12-14-2022 take 1 tablet by mouth once daily Cholecalciferol (Vitamin D3) (Vitamin D3) 25 mcg (1,000 unit) Tablet,Chewable Active 25 MCG PO Daily December 14, 2022 1:00am clopidogrel 75 mg oral tablet (20 sources) P2Y12 Platelet Inhibitor Start: 05-06-2024 take 75 mg by mouth once daily Clopidogrel Active 75 MG PO Daily May 06, 2024 12:00am Start: 12-05-2022 End: [...] sources) Serotonin Reuptake Inhibitor Start: 02-07-2021 take 1 tablet by mouth once daily escitalopram (Lexapro) 10 MG tablet Indications: Depression with anxiety TAKE 1 TABLET BY MOUTH EVERY DAY 90 tablet 3 02/26/2024 Active Start: 12-12-2019 escitalopram O ral, Daily, Refills(s) 0 Start Date: 12/12/19 Status: Ordered estradiol 0.1 mg/ml vaginal cream (15 sources) Estrogen Start: 03-28-2024 estradiol 0.1 mg/g Vag Crm 1 gram, Vaginal, MonFri, 42.5 gram, Refill(s) 6, Apply 1 gram 2x/ week and rub some around the urethra., [employer] #[facility], 157, cm, 03/28/24 11:07:00 EDT, Height/Length Dosing, 68.6, kg, 03/28/24 11:07:00 EDT, Weight Dosing Start Date: 03/28/24 Status: Ordered Start: 12-13-2021 estradiol 0.1 mg/g Vag Crm 1 gram, Vaginal, MonFri, 42.5 gram, Refill(s) 6, Apply 1 gram 2x/ week and rub some around the urethra., [email or web address] #14, 157, cm, 12/13/21 10:56:00 EST, Height/Length Dosing, 73.5, kg, 12/13/21 10:56:00 EST, Weight Dosing Start Date: 12/13/21 Status: Ordered estradiol (Estra ce) 0.1 MG/GM vaginal cream Insert 1 g into the vagina 2 (two) times a week. Active Estradiol 0.1 MG /GM Administer as [...] sources) beta-Adrenerg ic Giovani Start: 02-07-2021 take 1 tablet by mouth once daily metoprolol succinate XL (Toprol-XL) 100 MG 24 hr tablet Indications: Essential hypertension (CMS/HCC) TAKE 1 TABLET BY MOUTH EVERY DAY 90 tablet 3 02/26/2024 Active Start: 12-12-2019 take 1 mg by mouth [...] day at the same time. 0 Active Jglcdmgs-Ssv-Wida-Fa-Lut ein (Multivitamin Women 50 Plus) 8 mg iron-400 mcg-300 mcg Tablet (3 sources) Start: 12-14-2022 take 1 tablet by mouth once daily Ujttbbrg-Hat-Rvsy-Fa-Halima tein (Multivitamin Women 50 Plus) 8 mg iron-400 mcg-300 mcg Tablet Active 1 TAB PO Daily December 14, 2022 1:00am Start: 12-14-2022 take 1 tablet by beverley th once daily Laszplci-Xym-Hmkt-Fa-Lutein (Multivitami n Women 50 Plus) 8 mg iron-400 mcg-300 mcg Tablet Active 1 TAB PO Daily December 14, 2022 12:00am Isdowmio-Ngi-Mznw-Fa-Vit K-Lut (Multivitamin Women 50 Plus) 8 mg iron-400 mcg-300 mcg Tablet (6 sources) Start: 12-14-2022 take 1 tablet by mouth once daily Krleaurx-Uew-Ppmy-Fa-Vit K-Lut (Multivitamin Women 50 Plus) 8 mg iron-400 mcg-300 mcg Tablet Active 1 TAB PO Daily December 14, 2022 1:00am Start: 12-14-2022 take 1 tablet by beverley th once daily Zsvfhqba-Xqs-Yolw-Fa-Vit K-Lut (Multivitamin Women 50 Plus) 8 mg [...] Status: Ordered take 1 tablet by beverley th every twelve hours at mealtime as needed [...] BID, # 60 tab(s), Refills(s) 1, Pharmacy: [email or web address] #14, 157, cm, 12/13/21 10:56:00 EST, Height/Length [...] Classification Problem Date Documented Da te Episodic/Chronic Administrative/social admission (2 sources) Patient encounter status; Translations: [Other specified counseling] 08-30-2024 Episodic Calculus of urinary tract (17 sources) Calculus of kidney; Translations: [History of calculus of kidney] Onset: 12-10-2020 Episodic Chronic kidney disease (6 sources) Chronic kidney disease stage 3A ; Translations: [Stage 3a chronic kidney disease (HCC) ([facility]/HCC)] Onset: 06-05-2023 12-01-2023 Chronic Chronic kidney disease (1 source) Chronic kidney disease; Translations: [Chronic kidney disease, stage 3a] Onset: 09-18-2023 Conditions associated with dizziness or vertigo (17 sources) Dizziness; Translations: [Dizziness and giddiness] 02-08-2021 Episodic Diabetes mellitus with complications (6 sources) Type 2 diabetes mellitus; Translations: [Type 2 diabetes mellitus with diabetic chronic kidney disease] Onset: 06-05-2023 12-01-2023 Chronic Disorders of lipid metabolism (20 sources) Mixed hyperlipidemia; Translations: [Mixed hyperlipidemia] Onset: 06-05-2023 04-29-2019 Chronic Essential hypertension (15 sources) Essential hypertension; Translations: [Essential (primary) hypertension] Onset: 06-05-2023 12-01-2023 Chronic Headache; including migraine (8 sources) Headache disorder; Translations: [Other headache syndrome] Episodic Mood disorders (7 sources) Depressive disorder; Translations: [Dysthymia] Onset: 06-05-2023 04-29-2019 Chronic Occlusion or stenosis of precerebral arteries (20 sources) Occlusion and stenosis of multiple and bilateral cerebral arteries; Translations: [Occlusion and stenosis of bilateral carotid arteries] Onset: 05-31-2022 Resolved: 05-31-2022 Chronic Osteoarthritis (17 sources) Arthritis; Translations: [Arthritis of left knee] Onset: 06-05-2023 04-29-2019 Chronic Other lower respiratory disease (12 sources) Dyspnea; Translations: [Dyspnea, unspecified] 11-12-2022 Episodic Other nervous system disorders (17 sources) Numbness; Translations: [Anesthesia of skin] 02-08-2021 Episodic Other nutritional; endocrine; and metabolic disorders (3 sources) Overweight in adulthood with body mass index [...] carotid arteries] Onset: 10-10-2023 Urinary tract infections (9 sources) Chronic cystitis; Translations: [Other chronic cystitis without hematuria] Onset: 03-28-2023 Resolved: 09-05-2023 Chronic Past or Other Problems Problem Classification Problem Date Documented Da te Episodic/Chronic Anxiety disorders (19 sources) Anxiety; Translations: [Anxiety disorder, unspecified] Onset: 09-05-2023 Resolved: 09-05-2023 11-12-2022 Chronic Diabetes mellitus without complication (1 source) Impaired fasting glucose; Translations: [Impaired fasting glucose] Onset: 09-18-2023 Episodic Genitourinary symptoms and ill-defined conditions (16 sources) Unspecified urinary incontinence; Translations: [Female stress incontinence] Onset: 03-28-2023 Resolved: 09-05-2023 Chronic Genitourinary symptoms and ill-defined conditions (12 sources) Abnormal urinary product; Translations: [Hypocitraturia] Onset: 03-28-2023 Resolved: 09-05-2023 Episodic Headache; including migraine (7 sources) Migraine; Translations: [Migraine, unspecified, not intractable, without status migrainosus] Onset: 09-05-2023 Resolved: 09-05-2023 04-29-2019 Chronic Other nutritional; endocrine; and metabolic disorders (3 sources) Obese class I; Translations: [Obesity, unspecified] Onset: 06-05-2023 Resolved: 12-01-2023 12-01-2023 Chronic Results Test Name Value Interpretation Reference Range Facility Laboratory - Hematology and Cell countson 08-30-2024 HbA1c (Bld) [Mass fraction] 6.2 % [facility] No Panel Informationon 08-30 [facility] E[facility] echo transthoracicon [facility] echo transthoracic [facility] Main [place] [address] [place] [address] Echocardiogram Signed Patient: Sarah Alfaro MR#: [id number] : 1950 Acct:[id number] Age/Sex: 74 / F ADM Date: 05/04/24 Loc: Room: [address] [place] [address] Type: ADM INOo Attending Dr: Kameron Pires MD Ordering Provider: Marvin Iglesias DO Date of Service: 05/06/24/ [facility] echo transthoracic: stroke/TIA Copies to: DO Austin [...] Performed At: 05/06/24 1500 Signed By: Austin Card MD 05/06/24 1728 Normal [facility] MR head/brain wo vira 05-06 MR head/[place] [address] MRI Report Signed Patient: Sarah Alfaro MR#: [id number] : 1950 Acct:[id number] Age/Sex: 74 / F ADM Date: 05/04/24 Loc: 3T Room: [address] [place] [address] Type: ADM INOo Attending Dr: Kameron Pires [...] Ata Samuel M.D.05/06/2024 2:52 PM Dictation Location: [place] [address] Transcribed By: [facility] 05/06/24 1452 Dictated By: Ata Samuel II, MD 05/06/24 1449 Signed By: 05/06/24 1452 Normal [facility] A1C with Estimated Average G [place] 05-05-2024 Glucose [Mass/Vol] 137 mg/dL Normal [facility] Comment on above: Result Comment: PERF ORMED BY: [address] [place] [address] PATHOLOGIST UTILITY SYSTEM OPERATOR ANA LAURA MCCRARY M.D. Performed By: #### H S TROP, CBC, CK, PTT, PT, CMP #### [address] Automated basophil %Ordered By: Marvin Iglesias on 05-05-2024 Basophils/100 WBC (Bld) 0.8 % Normal . [facility] Comment on above: Performed By: #### H S TROP, CBC, CK, PTT, PT, CMP #### [address] Automated basophil countOrde red By: Marvin Iglesias on 05-05-2024 Basophils (Bld) [#/Vol] 0.1 10*3/uL Normal 0.0-0.2 [facility] Comment on above: Result Comment: PERF ORMED BY: [place] [address] PATHOLOGIST UTILITY SYSTEM OPERATOR ANA LAURA MCCRARY M.D. Performed By: #### H S TROP, CBC, CK, PTT, PT, CMP #### [address] Automated blood monocyte cou ntOrdered By: Marvin Iglesias on 05-05-2024 Monocytes (Bld) [#/Vol] 0.8 10*3/uL Normal 0.0-0.8 [facility] Comment on above: Performed By: #### H S TROP, CBC, CK, PTT, PT, CMP #### [address] Automated eosinophil %Ordere d By: Marvin Iglesias on 05-05-2024 Eosinophils/100 WBC (Bld) 1.4 % Normal . [facility] Comment on above: Performed By: #### H S TROP, CBC, CK, PTT, PT, CMP #### [address] Automated eosinophil countOr dered By: Marvin Iglesias on 05-05-2024 Eosinophils (Bld) [#/Vol] 0.2 10*3/uL Normal 0.0-0.45 [facility] Comment on above: Performed By: #### H S TROP, CBC, CK, PTT, PT, CMP #### [address] Automated monocyte %Ordered By: Marvin Iglesias on 05-05-2024 Monocytes/100 WBC (Bld) 5.9 % Normal . [facility] Comment on above: Performed By: #### H S TROP, CBC, CK, PTT, PT, CMP #### [address] Automated neutrophil %Ordere d By: Marvin Iglesias on 05-05-2024 Neutrophils/100 WBC (Bld) 72.4 % Normal . [facility] Comment on above: Performed By: #### H S TROP, CBC, CK, PTT, PT, CMP #### [address] Basic Metabolic Panelon 04-22 Creatinine Clr Calc Pharmacy 54.46 Normal [facility] Comment on above: Order Comment: FASTI NG Y Performed By: #### H S TROP, CBC, CK, PTT, PT, CMP #### [address] GFR/1.73 sq M.predicted MDRD (S/P/Bld) [Vol rate/Area] mL/min/{1.73_m2} Normal [facility] Comment on above: Order Comment: FASTI NG Y Performed By: #### H S TROP, CBC, CK, PTT, PT, CMP #### [address] Calcium [Mass/volume] in Ser um or PlasmaOrdered By: Marvin Iglesias on 05-05-2024 Calcium [Mass/Vol] 8.6 mg/dL Normal 8.6-10.3 [facility] Comment on above: Order Comment: FASTI NG Y Performed By: #### H S TROP, CBC, CK, PTT, PT, CMP #### [address] [place] [address] [place] Carbon dioxide, total [Moles /volume] in Serum or PlasmaOrdered By: Marvin Iglesias on 05-05-2024 CO2 [Moles/Vol] 27.8 mmol/L Normal 21.0-31.0 [facility] Comment on above: Order Comment: FASTAngelica MANE Y Performed By: #### H S TROP, CBC, CK, PTT, PT, CMP #### [facility] [address] [place] [address] [place] Chloride [Moles/volume] in S carlos or PlasmaOrdered By: Marvin Iglesias on 05-05-2024 Chloride [Moles/Vol] 104 mmol/L Normal 98-107 [facility] Comment on above: Order Comment: FASTAngelica MANE Y Performed By: #### H S TROP, CBC, CK, PTT, PT, CMP #### [facility] [address] [place] [id number] [place] Cholesterol [Mass/volume] in Serum or PlasmaOrdered By: Marvin Iglesias on 05-05-2024 Cholesterol [Mass/Vol] 162 mg/dL Normal 140-200 [facility] Comment on above: Chol less than 200 m g/dl low riskChol 201-239 mg/dl borderline riskChol 240 mg/dl and greater high risk Order Comment: ELAINE Laughlin Result Comment: Chol less than 200 mg/dl low risk Chol 201-239 mg/dl borderline risk Chol 240 mg/dl and greater high risk Performed By: #### H S TROP, CBC, CK, PTT, PT, CMP #### [facility] [address] [place] [id number] [place] Cholesterol in LDL Calc [Mas s/Vol]Ordered By: Marvin Iglesias on 05-05-2024 Cholesterol in LDL [Mass/Vol] 64 mg/dL 0-100 [facility] Comment on above: LDL ATP III CLASSIFI CATIONLDL less than 100 mg/dL OptimalLDL 100-129 mg/dL Near or above optimalLDL 130-159 mg/dL Borderline highLDL 160-189 mg/dL HighLDL greater than 189 mg/dL Very high Cholesterol in VLDL Calc [Ma ss/Vol]Ordered By: Marvin Iglesias on 05-05-2024 Cholesterol in VLDL [Mass/Vol] 33 mg/dL [facility] Complete Blood Count Auto Di ffon 05-05-2024 Mean Corpuscular HGB Conc 34.1 g/dL Normal 32.0-35.0 [facility] Comment on above: Performed By: #### H S TROP, CBC, CK, PTT, PT, CMP #### [facility] [address] [place] [address] NRBC% 0.0 /100{WBC} Normal 0-0.5 [facility] Comment on above: Performed By: #### H S TROP, CBC, CK, PTT, PT, CMP #### [address] Creatinine [Mass/volume] in Serum or PlasmaOrdered By: Marvin Iglesias on 05-05-2024 Creatinine [Mass/Vol] 0.86 mg/dL Normal 0.60-1.20 [facility] Comment on above: Order Comment: FASTI ANTONIETTA Y Performed By: #### H S TROP, CBC, CK, PTT, PT, CMP #### [address] Erythrocyte distribution wid th [Ratio] by Automated countOrdered By: Marvin Iglesias on 05-05-2024 Erythrocyte distribution width (RBC) [Ratio] 12.9 % Normal 11.9-15.3 [facility] Comment on above: Performed By: #### H S TROP, CBC, CK, PTT, PT, CMP #### [facility] [address] [place] [address] Erythrocytes [#/volume] in B lood by Automated countOrdered By: Marvin Iglesias on 05-05-2024 RBC (Bld) [#/Vol] 4.45 10*6/uL Normal 3.60-5.00 [facility] Comment on above: Performed By: #### H S TROP, CBC, CK, PTT, PT, CMP #### [place] [address] [place] Glucose [Mass/volume] in Ser um or PlasmaOrdered By: Marvin Iglesias on 05-05-2024 Glucose [Mass/Vol] 95 mg/dL Normal 70-100 [facility] Comment on above: ADA recommended refe rence rangeRandom Glucose Reference Range is dependent on time and content of last meal. Glucose of more than 200 mg/dL in a nonstressed, ambulatory subject supports the diagnosis of Diabetes Mellitus. Order Comment: FASTI NG Y Result Comment: [place] om Glucose Reference Range is dependent on time and content of last meal. Glucose of more than 200 mg/dL in a nonstressed, ambulatory subject supports the diagnosis of Diabetes Mellitus. ADA recommended reference range Performed By: #### H S TROP, CBC, CK, PTT, PT, CMP #### [facility] [address] Glucose mean value [Mass/vol ume] in Blood Estimated from glycated hemoglobinOrdered By: Marvin Iglesias on 05-05-2024 Average glucose Estimated from glycated hemoglobin (Bld) [Mass/Vol] 137 mg/dL [facility] Hematocrit [Volume Fraction] of Blood by Automated countOrdered By: Marvin Iglesias on 05-05-2024 Hematocrit (Bld) [Volume fraction] 42.0 % Normal 34.0-46.4 [facility] Comment on above: Performed By: #### H S TROP, CBC, CK, PTT, PT, CMP #### [facility] [address] Hemoglobin A1c percentageOrd ered By: Marvin Iglesias on 05-05-2024 HbA1c (Bld) [Mass fraction] 6.4 % High 4.3-5.6 [facility] Comment on above: Increased risk for d iabetes: 5.7 - 6.4diabetes: >6.4glycemic control for adults with diabetes: <7.0 Result Comment: Incr eased risk for diabetes: 5.7 - 6.4 diabetes: >6.4 glycemic control for adults with diabetes: <7.0 Performed By: #### H S TROP, CBC, CK, PTT, PT, CMP #### [facility] [address] Hemoglobin [Mass/volume] in BloodOrdered By: Marvin Iglesias on 05-05-2024 Hemoglobin (Bld) [Mass/Vol] 14.3 g/dL Normal 11.8-15.4 [facility] Comment on above: Performed By: #### H S TROP, CBC, CK, PTT, PT, CMP #### [facility] [address] Leukocytes [#/volume] correc alondra for nucleated erythrocytes in Blood by Automated counOrdered By: Marvin Iglesias on 05-05-2024 WBC corrected for nucl RBC Auto (Bld) [#/Vol] 13.7 10*3/uL High 3.8-11.6 [facility] Leukocytes [#/volume] in Blo od by Automated countOrdered By: Marvin Iglesias on 05-05-2024 WBC (Bld) [#/Vol] 13.7 10*3/uL High 3.8-11.6 [facility] Comment on above: Performed By: #### H S TROP, CBC, CK, PTT, PT, CMP #### [address] Lipid Panelon 05-05-2024 LDL Cholesterol,Calculated 64 mg/dL Normal 0-100 [facility] Comment on above: Order Comment: FASTAngelica Laughlin Result Comment: LDL ATP III CLASSIFICATION LDL less than 100 mg/dL Optimal LDL 100-129 mg/dL Near or above optimal LDL 130-159 mg/dL Borderline high LDL 160-189 mg/dL High LDL greater than 189 mg/dL Very high Performed By: #### H S TROP, CBC, CK, PTT, PT, CMP #### [facility] [address] Triglyceride w/Reflex 165 mg/dL High 0-149 [facility] Comment on above: Order Comment: FASTI NG Y Result Comment: TRIG ATP III CLASSIFICATION TRIG less than 150 mg/dL Normal TRIG 150-199 mg/dL Borderline high TRIG 200-500 mg/dL High TRIG greater than 500 mg/dL Very high Standard traceable to the Center for Disease Conrtrol and Prevention (CDC) test method. Performed By: #### H S TROP, CBC, CK, PTT, PT, CMP #### [address] VLDL CHOLESTEROL 33 mg/dL Normal [facility] Comment on above: Order Comment: ELAINE MANE Y Performed By: #### H S TROP, CBC, CK, PTT, PT, CMP #### [address] Lymphocytes [#/volume] in Bl ood by Automated countOrdered By: Marvin Iglesias on 05-05-2024 Lymphocytes (Bld) [#/Vol] 2.7 10*3/uL Normal 1.00-4.8 [facility] Comment on above: Performed By: #### H S TROP, CBC, CK, PTT, PT, CMP #### [address] Lymphocytes/100 leukocytes i n Blood by Automated countOrdered By: Marvin Iglesias on 05-05-2024 Lymphocytes/100 WBC (Bld) 19.5 % Normal . [facility] Comment on above: Performed By: #### H S TROP, CBC, CK, PTT, PT, CMP #### [address] MCH [Entitic mass] by Automa alondra countOrdered By: Marvin Iglesias on 05-05-2024 MCH (RBC) [Entitic mass] 32.2 pg Normal 24.7-34.3 [facility] Comment on above: Performed By: #### H S TROP, CBC, CK, PTT, PT, CMP #### [address] MCHC Auto (RBC) [Mass/Vol]Or dered By: Marvin Iglesias on 05-05-2024 MCHC (RBC) [Mass/Vol] 34.1 g/dL 32.0-35.0 [facility] MCV [Entitic volume] by Auto mated countOrdered By: Marvin Iglesias on 05-05-2024 MCV (RBC) [Entitic vol] 94.3 fL Normal 80-100 [facility] Comment on above: Performed By: #### H S TROP, CBC, CK, PTT, PT, CMP #### [facility] [address] [place] [address] Neutrophils [#/volume] in Bl ood by Automated countOrdered By: Marvin Iglesias on 05-05-2024 Neutrophils (Bld) [#/Vol] 9.9 10*3/uL High 1.8-7.7 [facility] Comment on above: Performed By: #### H S TROP, CBC, CK, PTT, PT, CMP #### [facility] [address] [place] [address] No Panel InformationOrdered By: Marvin Iglesias on 05-05-2024 Estimated GFR (CKD-EPI) > 60.0 mL/Min [facility] Creatinine Clearance (Chem 54.46 [facility] Nucleated erythrocytes [Pres ence] in Blood by Automated countOrdered By: Marvin Iglesias on 05-05-2024 Nucleated RBC Auto Ql (Bld) 0.0 /100{WBC} 0-0.5 [facility] Platelet mean volume [Entiti c volume] in Blood by Automated countOrdered By: Marvin Iglesias on 05-05-2024 Platelet mean volume (Bld) [Entitic vol] 8.4 fL Normal 6.3-10.7 [facility] Comment on above: Performed By: #### H S TROP, CBC, CK, PTT, PT, CMP #### [facility] [address] [place] [address] Platelets [#/volume] in Bloo d by Automated countOrdered By: Marvin Iglesias on 05-05-2024 Platelets (Bld) [#/Vol] 221 10*3/uL Normal 150-450 [facility] Comment on above: Performed By: #### H S TROP, CBC, CK, PTT, PT, CMP #### [facility] [address] Potassium [Moles/volume] in Serum or PlasmaOrdered By: Marvin Iglesias on 05-05-2024 Potassium [Moles/Vol] 4.0 mmol/L Normal 3.5-5.1 [facility] Comment on above: Order Comment: FASTI NG Y Performed By: #### H S TROP, CBC, CK, PTT, PT, CMP #### [facility] [address] Serum or plasma anion gap de terminationOrdered By: Marvin Iglesias on 05-05-2024 Anion gap [Moles/Vol] 11.2 mmol/L Normal 6.0-15.0 [facility] Comment on above: Order Comment: FASTAngelica NG Y Performed By: #### H S TROP, CBC, CK, PTT, PT, CMP #### [facility] [address] Serum or plasma high density lipoprotein (HDL) cholesterol measurementOrdered By: Marvin Iglesias on 05-05-2024 Cholesterol in HDL [Mass/Vol] 65 mg/dL Normal 23-92 [facility] Comment on above: HDL CHOL ATP-III CLA SSIFICATION Cardiovascular RiskHDL > or equal to 60 mg/dL LOWHDL < 40 mg/dL HIGH Order Comment: FASTI NG Y Result Comment: HDL CHOL ATP-III CLASSIFICATION Cardiovascular Risk HDL > or equal to 60 mg/dL LOW HDL < 40 mg/dL HIGH Performed By: #### H S TROP, CBC, CK, PTT, PT, CMP #### [facility] [address] Serum or plasma total choles terol/high density lipoprotein (HDL) cholesterol mass ratOrdered By: Marvin Iglesias on 05-05-2024 Cholesterol.total/Chol esterol in HDL [Mass ratio] 2.5 {ratio} Normal <5.0 [facility] Comment on above: Order Comment: FASTI NG Y Result Comment: PERF ORMED BY: [place] [address] PATHOLOGIST UTILITY SYSTEM OPERATOR ANA LAURA MCCRARY M.D. Performed By: #### H S TROP, CBC, CK, PTT, PT, CMP #### [facility] [address] Sodium [Moles/volume] in Ser um or PlasmaOrdered By: Marvin Iglesias on 05-05-2024 Sodium [Moles/Vol] 139 mmol/L Normal 136-145 [facility] Comment on above: Order Comment: FASTI NG Y Performed By: #### H S TROP, CBC, CK, PTT, PT, CMP #### [facility] [address] Triglyceride [Mass/volume] i n Serum or PlasmaOrdered By: Marvin Iglesias on 05-05-2024 Triglyceride [Mass/Vol] 165 mg/dL High 0-149 [facility] Comment on above: TRIG ATP III CLASSIF ICATIONTRIG less than 150 mg/dL NormalTRIG 150-199 mg/dL Borderline highTRIG 200-500 mg/dL High TRIG greater than 500 mg/dL Very highStandard traceable to the Center for Disease Conrtrol and Prevention (CDC) test method. Urea nitrogen [Mass/volume] in Serum or PlasmaOrdered By: Marvin Iglesias on 05-05-2024 Urea nitrogen [Mass/Vol] 19 mg/dL Normal 7-25 [facility] Comment on above: Order Comment: FASTI NG Y Performed By: #### H S TROP, CBC, CK, PTT, PT, CMP #### [facility] [address] Activated partial thrombopla stin time (aPTT) in platelet poor plasma by coagulation aOrdered By: Meme Montelongo on 05-04-2024 aPTT Coag (PPP) [Time] 25.5 s 25.1-36.5 [facility] Comment on above: A hematocrit value g reater than 55% may lead to inaccurate results in coagulation testing. Patients having hematocrit values >55% require a special collection tube for coagulation studies. Please contact the laboratory at [phone] for redraw instructions. Alanine aminotransferase [En zymatic activity/volume] in Serum or PlasmaOrdered By: Meme Montelongo on 05-04-2024 ALT [Catalytic activity/Vol] 53 U/L High 7-52 [facility] Comment on above: Performed By: #### H S TROP, CBC, CK, PTT, PT, CMP #### [facility] [address] Albumin [Mass/volume] in Ser um or Plasma by Bromocresol green (BCG) dye binding methoOrdered By: Meme Montelongo on 05-04-2024 Albumin BCG dye [Mass/Vol] 4.2 g/dL 3.5-5.7 [facility] Alkaline phosphatase [Enzyma tic activity/volume] in Serum or PlasmaOrdered By: Meme Montelongo on 05-04-2024 ALP [Catalytic activity/Vol] 61 U/L Normal 34-104 [facility] Comment on above: Performed By: #### H S TROP, CBC, CK, PTT, PT, CMP #### [facility] [address] [place] [address] Aspartate aminotransferase [ Enzymatic activity/volume] in Serum or PlasmaOrdered By: Meme Montelongo on 05-04-2024 AST [Catalytic activity/Vol] 35 U/L Normal 13-39 [facility] Comment on above: Performed By: #### H S TROP, CBC, CK, PTT, PT, CMP #### [facility] [address] [place] [address] Automated basophil %Ordered By: Meme Montelongo on 05-04-2024 Basophils/100 WBC (Bld) 0.9 % Normal . [facility] Comment on above: Performed By: #### H S TROP, CBC, CK, PTT, PT, CMP #### [facility] [address] [place] [address] Automated basophil countOrde red By: Meme Montelongo on 05-04-2024 Basophils (Bld) [#/Vol] 0.1 10*3/uL Normal 0.0-0.2 [facility] Comment on above: Result Comment: PERF ORMED BY: [place] [address] PATHOLOGIST UTILITY SYSTEM OPERATOR ANA LAURA MCCRARY M.D. Performed By: #### H S TROP, CBC, CK, PTT, PT, CMP #### [address] Automated blood monocyte cou ntOrdered By: Meme Montelongo on 05-04-2024 Monocytes (Bld) [#/Vol] 1.2 10*3/uL High 0.0-0.8 [facility] Comment on above: Performed By: #### H S TROP, CBC, CK, PTT, PT, CMP #### [address] Automated eosinophil %Ordere d By: Meme Montelongo on 05-04-2024 Eosinophils/100 WBC (Bld) 1.9 % Normal . [facility] Comment on above: Performed By: #### H S TROP, CBC, CK, PTT, PT, CMP #### [address] Automated eosinophil countOr dered By: Meme Montelongo on 05-04-2024 Eosinophils (Bld) [#/Vol] 0.3 10*3/uL Normal 0.0-0.45 [facility] Comment on above: Performed By: #### H S TROP, CBC, CK, PTT, PT, CMP #### [address] Automated monocyte %Ordered By: Meme Montelongo on 05-04-2024 Monocytes/100 WBC (Bld) 7.6 % Normal . [facility] Comment on above: Performed By: #### H S TROP, CBC, CK, PTT, PT, CMP #### [address] Automated neutrophil %Ordere d By: Meme Montelongo on 05-04-2024 Neutrophils/100 WBC (Bld) 76.3 % Normal . [facility] Comment on above: Performed By: #### H S TROP, CBC, CK, PTT, PT, CMP #### [address] Bilirubin Test strip Ql (U)O rdered By: Meme Montelongo on 05-04-2024 Bilirubin Ql (U) Negative Negative [facility] Bilirubin.total [Mass/volume ] in Serum or PlasmaOrdered By: Meme Montelongo on 05-04-2024 Bilirubin [Mass/Vol] 0.7 mg/dL Normal 0.3-1.0 [facility] Comment on above: Performed By: #### H S TROP, CBC, CK, PTT, PT, CMP #### [address] Blood Cultureon 05-04-2024 Bacteria identified Cx Nom (Bld) NO GROWTH 5 DAYS PERFORMED BY: [place] [address] PATHOLOGIST UTILITY SYSTEM OPERATOR ANA LAURA MCCRARY M.D. Normal [facility] Comment on above: Performed By: #### H S TROP, CBC, CK, PTT, PT, CMP #### [address] Blood carbon dioxide, total measurement by calculation (moles/volume)Ordered By: Meme Montelongo on 05-04-2024 CO2 Calc (Bld) [Moles/Vol] 28 mmol/L 23-29 [facility] Blood hemoglobin measurement by calculation (mass/volume)Ordered By: Meme Montelongo on 05-04-2024 Hemoglobin (Bld) [Mass/Vol] 16.0 g/dL Normal 12.0-17.0 [facility] Comment on above: Performed By: #### E RBMP #### [address] Point of Care testing , Blood urea nitrogen (BUN) me asurement in whole blood (mass/volume)Ordered By: Meme Montelongo on 05-04-2024 Urea nitrogen [Mass/Vol] 27 mg/dL High 8-26 [facility] Comment on above: Performed By: #### E RBMP #### [address] Point of Care testing , COVID CepheidOrdered By: Gael Montelongo on 05-04-2024 SARS-CoV-2 (COVID-19) Ab IA Ql Negative Negative [facility] Comment on above: This is a duplicate Cepheid Xpert Xpress CoV-2/Flu/RSV Plus RNA by RT-PCR result to be used for statistical tracking purpose only. SARS-CoV-2 (COVID-19) RNA COBY+probe Ql (Unsp spec) [facility] COVID-19 / Flu A/B / RSV PCR [...] or Cepheid Disclaimer revoked sooner. PERFORMED BY: [place] [address] PATHOLOGIST UTILITY SYSTEM OPERATOR ANA LAURA MCCRARY M.D. Normal [facility] Comment on above: Performed By: #### H S TROP, CBC, CK, PTT, PT, CMP #### [address] angio neckon 05-04-2024 CT angio neck [facility] [place] [address] [place] [address] CT Scan Report Signed Patient: Sarah Alfaro MR#: [id number] 522 : 1950 Acct:[id number] Age/Sex: 74 / F ADM Date: 05/04/24 Loc: ER Room: Type: [facility] Attending Dr: Copies to: Meme Montelongo MD Ordering Provider: Meme Montelongo MD Date of Service: 05/04/24 CT/CT angio neck: R arm numb ([id number]) CT/CT angio head: R arm numb CT [...] Ata Samuel M.D.05/04/2024 4:33 PM Dictation Location: [place] [address] Transcribed By: [facility] 05/04/24 1633 Dictated By: Ata Samuel II, MD 05/04/24 1626 Signed By: 05/04/24 1633 Normal [facility] CT biopsyOrdered By: Meme Montelongo on 05-04-2024 Hematocrit (Bld) [Volume fraction] 47.0 % Normal 38.0-51.0 [facility] Comment on above: Performed By: #### E RBMP #### [address] [address] [facility] Point of Care testing , CT head stroke alert jose daniel talbot 05-04-2024 CT head stroke alert wo con [facility] [place] [address] CT Scan Report Signed Patient: Sarah Alfaro MR#: [id number] 522 : 1950 Acct:[id number] Age/Sex: 74 / F ADM Date: 05/04/24 Loc: ER Room: Type: [facility] ER Attending Dr: Copies to: Meme Montelongo [...] Ata Samuel M.D.05/04/2024 4:23 PM Dictation Location: [place] [address] Transcribed By: [facility] 05/04/24 832 Dictated By: Ata Samuel II, MD 05/04/24 162 Signed By: 05/04/24 1627 Normal [facility] Calcium [Mass/volume] in Ser um or PlasmaOrdered By: Meme Montelongo on 05-04-2024 Calcium [Mass/Vol] 9.2 mg/dL Normal 8.6-10.3 [facility] Comment on above: Performed By: #### H S TROP, CBC, CK, PTT, PT, CMP #### [address] Capillary blood glucose sudhakar urement by glucometer (mass/volume)Ordered By: Meme Montelongo on 05-04-2024 Glucose [Mass/Vol] 135 mg/dL High 70-105 [facility] Comment on above: Result Comment: PERF ORMED BY: [place] [address] PATHOLOGIST UTILITY SYSTEM OPERATOR ANA LAURA MCCRARY M.D. Performed By: #### E RBMP #### [address] Point of Care testing , Glucose [Mass/Vol] 127 mg/dL Normal [facility] Comment on above: Random Glucose Refer ence Range is dependent on time and content of last meal. Glucose of more than 200 mg/dL in a nonstressed, ambulatory subject supports the diagnosis of Diabetes Mellitus. Result Comment: [place] Glucose Reference Range is dependent on time and content of last meal. Glucose of more than 200 mg/dL in a nonstressed, ambulatory subject supports the diagnosis of Diabetes Mellitus. PERFORMED BY: [place] [address] PATHOLOGIST UTILITY SYSTEM OPERATOR ANA LAURA MCCRARY M.D. Performed By: #### G LULS #### Point of Care testing , Carbon dioxide, total [Moles /volume] in Serum or PlasmaOrdered By: Meme Montelongo on 05-04-2024 CO2 [Moles/Vol] 23.5 mmol/L Normal 21.0-31.0 [facility] Comment on above: Performed By: #### H S TROP, CBC, CK, PTT, PT, CMP #### [address] Cepheid COVID PCR Negativeon 05-04-2024 SARS-CoV-2 (COVID-19) RNA COBY+probe Ql (Unsp spec) Negative Normal Negative [facility] Comment on above: Result Comment: This is a duplicate CepAspects Software Xpert Xpress CoV-2/Flu/RSV Plus RNA by RT-PCR result to be used for statistical tracking purpose only. PERFORMED BY: [place] [address] PATHOLOGIST UTILITY SYSTEM OPERATOR ANA LAURA MCCRARY M.D. Performed By: #### H S TROP, CBC, CK, PTT, PT, CMP #### [address] Chloride [Moles/volume] in S carlos or PlasmaOrdered By: Meme Montelongo on 05-04-2024 Chloride [Moles/Vol] 105 mmol/L Normal 98-107 [facility] Comment on above: Performed By: #### H S TROP, CBC, CK, PTT, PT, CMP #### [address] Color of Urine by AutoOrdere d By: Meme Montelongo on 05-04-2024 Color (U) Yellow Normal Yellow [facility] Comment on above: Order Comment: Name Collection Type:: Clean-Voided Midstream Performed By: #### H S TROP, CBC, CK, PTT, PT, CMP #### [address] Complete Blood Count Auto Di ffon 05-04-2024 Mean Corpuscular HGB Conc 34.2 g/dL Normal 32.0-35.0 [facility] Comment on above: Performed By: #### H S TROP, CBC, CK, PTT, PT, CMP #### [place] [address] [place] Monocytes/100 WBC (Bld) 17.82 % Normal 0.00-20.00 [facility] Comment on above: Performed By: #### H S TROP, CBC, CK, PTT, PT, CMP #### [place] [address] [place] NRBC% 0.1 /100{WBC} Normal 0-0.5 [facility] Comment on above: Performed By: #### H S TROP, CBC, CK, PTT, PT, CMP #### [facility] [address] Comprehensive Metabolic Pane britney 05-04-2024 Albumin [Mass/Vol] 4.2 g/dL Normal 3.5-5.7 [facility] Comment on above: Performed By: #### H S TROP, CBC, CK, PTT, PT, CMP #### [address] Creatinine Clr Calc Pharmacy 40.72 Normal [facility] Comment on above: Result Comment: PERF ORMED BY: [place] [address] PATHOLOGIST UTILITY SYSTEM OPERATOR ANA LAURA MCCRARY M.D. Performed By: #### H S TROP, CBC, CK, PTT, PT, CMP #### [address] GFR/1.73 sq M.predicted MDRD (S/P/Bld) [Vol rate/Area] 51.148 mL/min/{1.73_m2} Normal [facility] Comment on above: Performed By: #### H S TROP, CBC, CK, PTT, PT, CMP #### [address] Creatine kinase [Enzymatic a ctivity/volume] in Serum or PlasmaOrdered By: Meme Montelongo on 05-04-2024 CK [Catalytic activity/Vol] 65 U/L Normal 30-223 [facility] Comment on above: Performed By: #### H S TROP, CBC, CK, PTT, PT, CMP #### [address] Creatinine [Mass/volume] in Serum or PlasmaOrdered By: Meme Montelongo on 05-04-2024 Creatinine [Mass/Vol] 1.14 mg/dL Normal 0.60-1.20 [facility] Comment on above: Performed By: #### H S TROP, CBC, CK, PTT, PT, CMP #### [address] ECG 12 lead ECGon 07-13-2024 ECG 12 lead ECG [facility] [place] [address] [place] [address] Electrocardiograph Report Signed Patient: Sarah Alfaro MR#: [id number] 522 : 1950 Acct:[id number] Age/Sex: 74 / F ADM Date: 05/04/24 Loc: Room: [address] [place] [address] Type: ADM INOo Attending Dr: Marvin Iglesias [...] was found Confirmed by Meme Montelongo MD ([id number]) on 05/04/2024 10:25:12 PM Referred By: Electronically Signed By: Meme Montelongo MD Transcribed By: MUS Signed By Meme Montelongo MD 04/22 Normal [facility] Erythrocyte distribution wid th [Ratio] by Automated countOrdered By: Meme Montelongo on 05-04-2024 Erythrocyte distribution width (RBC) [Ratio] 13.0 % Normal 11.9-15.3 [facility] Comment on above: Performed By: #### H S TROP, CBC, CK, PTT, PT, CMP #### [facility] [address] [place] [address] [place] Erythrocytes [#/volume] in B lood by Automated countOrdered By: Meme Montelongo on 05-04-2024 RBC (Bld) [#/Vol] 4.45 10*6/uL Normal 3.60-5.00 [facility] Comment on above: Performed By: #### H S TROP, CBC, CK, PTT, PT, CMP #### [facility] [address] [place] [address] [place] Glucose [Mass/volume] in Ser um or PlasmaOrdered By: Meme Montelongo on 05-04-2024 Glucose [Mass/Vol] 133 mg/dL High 70-100 [facility] Comment on above: ADA recommended refe rence rangeRandom Glucose Reference Range is dependent on time and content of last meal. Glucose of more than 200 mg/dL in a nonstressed, ambulatory subject supports the diagnosis of Diabetes Mellitus. Result Comment: [place] om Glucose Reference Range is dependent on time and content of last meal. Glucose of more than 200 mg/dL in a nonstressed, ambulatory subject supports the diagnosis of Diabetes Mellitus. ADA recommended reference range Performed By: #### H S TROP, CBC, CK, PTT, PT, CMP #### [facility] [address] Hematocrit [Volume Fraction] of Blood by Automated countOrdered By: Meme Montelongo on 05-04-2024 Hematocrit (Bld) [Volume fraction] 42.0 % Normal 34.0-46.4 [facility] Comment on above: Performed By: #### H S TROP, CBC, CK, PTT, PT, CMP #### [facility] [address] Hemoglobin [Mass/volume] in BloodOrdered By: Meme Montelongo on 05-04-2024 Hemoglobin (Bld) [Mass/Vol] 14.4 g/dL Normal 11.8-15.4 [facility] Comment on above: Performed By: #### H S TROP, CBC, CK, PTT, PT, CMP #### [address] INR in Platelet poor plasma by Coagulation assayOrdered By: Meme Montelongo on 05-04-2024 INR Coag (PPP) [Relative time] 0.9 {INR} Normal [facility] Comment on above: INR Therapeutic Rang e [...] TROP, CBC, CK, PTT, PT, CMP #### [address] ISTAT ER Chem8+ Panelon 04-22 CO2 [Moles/Vol] 28 mmol/L Normal 23-29 [facility] Comment on above: Performed By: #### E RBMP #### [address] Point of Care testing , ISTAT Ionized Calcium 1.18 mol/L Normal 1.12-1.32 [facility] Comment on above: Performed By: #### E RBMP #### [address] Point of Care testing , Ketones Auto test strip (U) [Mass/Vol]Ordered By: Meme Montelongo on 05-04-2024 Ketones (U) [Mass/Vol] Trace High Negative [facility] Lactate [Moles/volume] in Se rum or PlasmaOrdered By: Meme Montelongo on 05-04-2024 Lactate [Moles/Vol] 1.3 mmol/L Normal 0.5-2.2 [facility] Comment on above: Result Comment: PERF ORMED BY: [place] [address] PATHOLOGIST UTILITY SYSTEM OPERATOR ANA LAURA MCCRARY M.D. Performed By: #### H S TROP, CBC, CK, PTT, PT, CMP #### [address] Leukocytes [#/volume] correc alondra for nucleated erythrocytes in Blood by Automated counOrdered By: Meme Montelongo on 05-04-2024 WBC corrected for nucl RBC Auto (Bld) [#/Vol] 16.4 10*3/uL High 3.8-11.6 [facility] Leukocytes [#/volume] in Blo od by Automated countOrdered By: Meme Montelongo on 05-04-2024 WBC (Bld) [#/Vol] 16.4 10*3/uL High 3.8-11.6 [facility] Comment on above: Performed By: #### H S TROP, CBC, CK, PTT, PT, CMP #### [facility] [address] Lymphocytes [#/volume] in Bl ood by Automated countOrdered By: Meme Montelongo on 05-04-2024 Lymphocytes (Bld) [#/Vol] 2.2 10*3/uL Normal 1.00-4.8 [facility] Comment on above: Performed By: #### H S TROP, CBC, CK, PTT, PT, CMP #### [facility] [address] [place] [address] Lymphocytes/100 leukocytes i n Blood by Automated countOrdered By: Meme Montelongo on 05-04-2024 Lymphocytes/100 WBC (Bld) 13.3 % Normal . [facility] Comment on above: Performed By: #### H S TROP, CBC, CK, PTT, PT, CMP #### [facility] [address] [place] [address] MCH [Entitic mass] by Automa alondra countOrdered By: Meme Montelongo on 05-04-2024 MCH (RBC) [Entitic mass] 32.2 pg Normal 24.7-34.3 [facility] Comment on above: Performed By: #### H S TROP, CBC, CK, PTT, PT, CMP #### [facility] [address] [place] [address] MCHC Auto (RBC) [Mass/Vol]Or dered By: Meme Montelongo on 05-04-2024 MCHC (RBC) [Mass/Vol] 34.2 g/dL 32.0-35.0 [facility] MCV [Entitic volume] by Auto mated countOrdered By: Meme Montelongo on 05-04-2024 MCV (RBC) [Entitic vol] 94.4 fL Normal 80-100 [facility] Comment on above: Performed By: #### H S TROP, CBC, CK, PTT, PT, CMP #### [facility] [address] [place] [address] [place] Monocyte distribution width [Entitic volume] in Blood by AutomatedOrdered By: Meme Montelongo on 05-04-2024 Monocyte distribution width Auto (Bld) [Entitic vol] 17.82 % 0.00-20.00 [facility] Neutrophils [#/volume] in Bl ood by Automated countOrdered By: Meme Montelongo on 05-04-2024 Neutrophils (Bld) [#/Vol] 12.5 10*3/uL High 1.8-7.7 [facility] Comment on above: Performed By: #### H S TROP, CBC, CK, PTT, PT, CMP #### [facility] [address] Nitrite Test strip Ql (U)Ord ered By: Meme Montelongo on 05-04-2024 Nitrite Ql (U) Negative Negative [facility] No Panel InformationOrdered By: Meme Montelongo on 05-04-2024 Estimated GFR (CKD-EPI) 51.148 mL/Min [facility] Creatinine Clearance (Chem 40.72 [facility] Nucleated erythrocytes [Pres ence] in Blood by Automated countOrdered By: Meme Montelongo on 05-04-2024 Nucleated RBC Auto Ql (Bld) 0.1 /100{WBC} 0-0.5 [facility] Partial Thromboplastin Timeo n 05-04-2024 aPTT Coag (Bld) [Time] 25.5 s Normal 25.1-36.5 [facility] Comment on above: Result Comment: A he matocrit value greater than 55% may lead to inaccurate results in coagulation testing. Patients having hematocrit values >55% require a special collection tube for coagulation studies. Please contact the laboratory at [phone] for redraw instructions. PERFORMED BY: [facility] [address] [facility] [address] PATHOLOGIST UTILITY SYSTEM OPERATOR ANA LAURA MCCRARY M.D. Performed By: #### H S TROP, CBC, CK, PTT, PT, CMP #### [facility] [address] Platelet mean volume [Entiti c volume] in Blood by Automated countOrdered By: Meme Montelongo on 05-04-2024 Platelet mean volume (Bld) [Entitic vol] 8.2 fL Normal 6.3-10.7 [facility] Comment on above: Performed By: #### H S TROP, CBC, CK, PTT, PT, CMP #### [facility] [address] Platelets [#/volume] in Bloo d by Automated countOrdered By: Meme Montelongo on 05-04-2024 Platelets (Bld) [#/Vol] 264 10*3/uL Normal 150-450 [facility] Comment on above: Performed By: #### H S TROP, CBC, CK, PTT, PT, CMP #### [address] Potassium [Moles/volume] in Serum or PlasmaOrdered By: Meme Montelongo on 05-04-2024 Potassium [Moles/Vol] 4.5 mmol/L Normal 3.5-5.1 [facility] Comment on above: Performed By: #### H S TROP, CBC, CK, PTT, PT, CMP #### [address] Protein Auto test strip (U) [Mass/Vol]Ordered By: Meme Montelongo on 05-04-2024 Protein (U) [Mass/Vol] Negative Negative [facility] Protein [Mass/volume] in Ser um or PlasmaOrdered By: Meme Montelongo on 05-04-2024 Protein [Mass/Vol] 6.9 g/dL Normal 6.4-8.9 [facility] Comment on above: Performed By: #### H S TROP, CBC, CK, PTT, PT, CMP #### [address] Prothrombin time (PT)Ordered By: Meme Montelongo on 05-04-2024 PT Coag (PPP) [Time] 10.8 s Normal 9.0-12.9 [facility] Comment on above: A hematocrit value g reater than 55% may lead to inaccurate results in coagulation testing. Patients having hematocrit values >55% require a special collection tube for coagulation studies. Please contact the laboratory at [phone] for redraw instructions. Result Comment: A he matocrit value greater than 55% may lead to inaccurate results in coagulation testing. Patients having hematocrit values >55% require a special collection tube for coagulation studies. Please contact the laboratory at [phone] for redraw instructions. Performed By: #### H S TROP, CBC, CK, PTT, PT, CMP #### [address] Serum globulin measurement b y calculation (mass/volume)Ordered By: Meme Montelongo on 05-04-2024 Globulin (S) [Mass/Vol] 2.7 g/dL [facility] Comment on above: Performed By: #### H S TROP, CBC, CK, PTT, PT, CMP #### [address] Serum or plasma albumin/glob ulin mass ratioOrdered By: Meme Montelongo on 05-04-2024 Albumin/Globulin [Mass ratio] 1.6 {ratio} [facility] Comment on above: Performed By: #### H S TROP, CBC, CK, PTT, PT, CMP #### [address] Serum or plasma anion gap de terminationOrdered By: Meme Montelongo on 05-04-2024 Anion gap [Moles/Vol] 12.0 mmol/L Normal 6.0-15.0 [facility] Comment on above: Performed By: #### H S TROP, CBC, CK, PTT, PT, CMP #### [address] Sodium [Moles/volume] in Ser um or PlasmaOrdered By: Meme Montelongo on 05-04-2024 Sodium [Moles/Vol] 136 mmol/L Normal 136-145 [facility] Comment on above: Performed By: #### H S TROP, CBC, CK, PTT, PT, CMP #### [address] Specific gravity Auto test s trip (U) [Rel density]Ordered By: Meme Montelongo on 05-04-2024 Specific gravity (U) [Rel density] > 1.050 High 1.001-1.030 [facility] Troponin I High Sensitivityo n 05-04-2024 Troponin I High Sensitivity 3.6 pg/mL Normal 0.0-15.0 [facility] Comment on above: Result Comment: PERF ORMED BY: [place] [address] PATHOLOGIST UTILITY SYSTEM OPERATOR ANA LAURA MCCRARY M.D. Performed By: #### H S TROP, CBC, CK, PTT, PT, CMP #### [address] Troponin I.cardiac [Mass/vol ume] in Serum or Plasma by Detection limit <= 0.01 ng/Ordered By: Meme Montelongo on 05-04-2024 Troponin I.cardiac DL <= 0.01 ng/mL [Mass/Vol] 3.6 pg/mL 0.0-15.0 [facility] Urea nitrogen [Mass/volume] in Serum or PlasmaOrdered By: Meme Montelongo on 05-04-2024 Urea nitrogen [Mass/Vol] 26 mg/dL High 7-25 [facility] Comment on above: Performed By: #### H S TROP, CBC, CK, PTT, PT, CMP #### [facility] [address] [place] [address] Urinalysison 05-04-2024 Appearance (U) Clear Normal Clear [facility] Comment on above: Order Comment: Name Collection Type:: Clean-Voided Midstream Performed By: #### H S TROP, CBC, CK, PTT, PT, CMP #### [address] Bilirubin,Urine Negative Normal Negative [facility] Comment on above: Order Comment: Name Collection Type:: Clean-Voided Midstream Performed By: #### H S TROP, CBC, CK, PTT, PT, CMP #### [address] Glucose Ql (U) Normal Normal Normal [facility] Comment on above: Order Comment: Name Collection Type:: Clean-Voided Midstream Performed By: #### H S TROP, CBC, CK, PTT, PT, CMP #### [address] Ketones Ql (U) Trace High Negative [facility] Comment on above: Order Comment: Name Collection Type:: Clean-Voided Midstream Performed By: #### H S TROP, CBC, CK, PTT, PT, CMP #### [address] Leukocyte esterase Test strip Ql (U) Negative Normal Negative [facility] Comment on above: Order Comment: Name Collection Type:: Clean-Voided Midstream Performed By: #### H S TROP, CBC, CK, PTT, PT, CMP #### [place] [address] [place] Nitrite,Urine Negative Normal Negative [facility] Comment on above: Order Comment: Name Collection Type:: Clean-Voided Midstream Performed By: #### H S TROP, CBC, CK, PTT, PT, CMP #### [address] Occult Blood,Urine Negative Normal Negative [facility] Comment on above: Order Comment: Name Collection Type:: Clean-Voided Midstream Result Comment: PERF ORMED BY: [place] [address] PATHOLOGIST UTILITY SYSTEM OPERATOR ANA LAURA MCCRARY M.D. Performed By: #### H S TROP, CBC, CK, PTT, PT, CMP #### [place] [address] [place] Protein,Urine Negative Normal Negative [facility] Comment on above: Order Comment: Name Collection Type:: Clean-Voided Midstream Performed By: #### H S TROP, CBC, CK, PTT, PT, CMP #### [address] Specificy [place],Urine > 1.050 High 1.001-1.030 [facility] Comment on above: Order Comment: Name Collection Type:: Clean-Voided Midstream Performed By: #### H S TROP, CBC, CK, PTT, PT, CMP #### [facility] [address] Urobilinogen,Urine Normal Normal Normal [facility] Comment on above: Order Comment: Name Collection Type:: Clean-Voided Midstream Performed By: #### H S TROP, CBC, CK, PTT, PT, CMP #### [address] Urine Cultureon 05-04-2024 Bacteria identified Cx Nom (U) 75,000 colonies/ml mixed bacterial skin contaminants 2 Days PERFORMED BY: [place] [address] PATHOLOGIST UTILITY SYSTEM OPERATOR ANA LAURA MCCRARY M.D. Normal [facility] Comment on above: Performed By: #### H S TROP, CBC, CK, PTT, PT, CMP #### [address] Urine clarity by refractomet ry automatedOrdered By: Meme Montelongo on 05-04-2024 Clarity Refractometry automated (U) Clear Clear [facility] Urine culture routineOrdered By: Meme Montelongo on 05-04-2024 Bacteria identified Cx Nom (U) 2 Days [facility] Urine glucose measurement by automated test strip (mass/volume)Ordered By: Meme Montelongo on 05-04-2024 Glucose Auto test strip (U) [Mass/Vol] Normal mg/dL Normal [facility] Urine hemoglobin detection b y automated test stripOrdered By: Meme Montelongo on 05-04-2024 Hemoglobin Auto test strip Ql (U) Negative Negative [facility] Urine leukocyte esterase det ection by automated test stripOrdered By: Meme Montelongo on 05-04-2024 Leukocyte esterase Auto test strip Ql (U) Negative Negative [facility] Urine pH measurement by auto mated test stripOrdered By: Meme Montelongo on 05-04-2024 pH (U) 5.5 [pH] Normal 5.0-9.0 [facility] Comment on above: Order Comment: Name Collection Type:: Clean-Voided Midstream Performed By: #### H S TROP, CBC, CK, PTT, PT, CMP #### [address] Urobilinogen Auto test strip (U) [Mass/Vol]Ordered By: Meme Montelongo on 05-04-2024 Urobilinogen (U) [Mass/Vol] Normal mg/dL Normal [facility] Whole blood chloride measure mentOrdered By: Meme Montelongo on 05-04-2024 Chloride [Moles/Vol] 104.0 mmol/L Normal 98-109 [facility] Comment on above: Performed By: #### E RBMP #### [address] Point of Care testing , Whole blood creatinine measu rementOrdered By: Meme Montelongo on 05-04-2024 Creatinine [Mass/Vol] 1.1 mg/dL Normal 0.6-1.3 [facility] Comment on above: ER/ESD physician is notified/shown all ISTAT results.Critical values may be confirmed by laboratory testing ifdeemed necessary by ER attending doctor. Result Comment: ER/E SD physician is notified/shown all ISTAT results. Critical values may be confirmed by laboratory testing if deemed necessary by ER attending doctor. Performed By: #### E RBMP #### [address] Point of Care testing , Whole blood ionized calcium measurement (moles/volume)Ordered By: Meme Montelongo on 05-04-2024 Calcium.ionized (Bld) [Moles/Vol] 1180 mmol/L 1.12-1.32 [facility] Whole blood potassium measur ementOrdered By: Meme Montelongo on 05-04-2024 Potassium [Moles/Vol] 4.5 mmol/L Normal 3.5-4.9 [facility] Comment on above: Performed By: #### E RBMP #### [address] Point of Care testing , Whole blood sodium measureme ntOrdered By: Meme Montelongo on 05-04-2024 Sodium [Moles/Vol] 138 mmol/L Normal 138-146 [facility] Comment on above: Performed By: #### E RBMP #### [facility] [address] [place] [id number] [facility] Point of Care testing , US carotid doppler BIon 06- US carotid doppler BI [facility] [address] [place] [address] Ultrasound Report Signed Patient: Sarah Alfaro MR#: [id number] 522 : 1950 Acct:[id number] Age/Sex: 74 / F ADM Date: 04/09/24 Loc: [facility] Room: Type: [facility] Attending Dr: Scott Sellers MD Ordering Provider: [...] Scott Sellers M.D.04/09/2024 11:29 AM Dictation Location: [place] [address] Tech: Ayesha Loco Transcribed By: YADIRA 04/09/24 1129 Dictated By: Scott Sellers MD 04/09/24 1128 Signed By: 04/09/24 1129 Normal [facility] [place] 03-29-2024 Screens [id number] Normal [facility] Ambulatory Visit Summaryon 0 03-28-2024 Ambulatory Visit Summary SARAH ALFARO :1950 Visit Date:03/28/2024 Ambulatory Visit Instructions Your Diagnosis Chronic cystitis without hematuria History of kidney stones Hypocitraturia Urine incontinence Your Care Team Attending Physician - CARLA JON PA-C Primary Care Physician - SHARMAINE WONG DO This Is Your Medications List citric [...] Comments: 18 mos (no labs) Where: [address] [place] [address] [phone] Medications What How Much When Instructions Unchanged [...] 4. R (more content not included)... Normal [facility] Patient Educationon 03-28-20 Patient Education Obstetrics [...] provider. Document Revised: 02/17/2022 Document Reviewed: 02/17/2022 [employer] Patient Education ? 2022 [employer] Normal [facility] Urology Office/Clinic Noteon 03-28-2024 Urology Office/Clinic [...] Contact Information LEIGH LIZ, CARLA Lopes, URL [address] [place] [address] [phone] Additional Instructions: 18 mos (no labs) Patient Education Kegel Exercises Documentation recorded by the scribvernon Arredondo accurately reflects the services(s) I performed and decisions made by me. Authenticated by aCrla Jon PA-C on 03/28/2024 12:40:48. I, Kiara Arredondo, personally scribed for Carla Jon PA-C on 03/28/2024 11:30:59. . Problem List/Past [...] influenza virus (more content not included)... Normal [facility] Comment on above: Result Comment: Elec tronically Signed By: CARLA JON PA-C\.br\Date and Time Signed: 03/28/24 12:43 EDT\.br\Electronically Co-Signed By: Kiara Arredondo\.br\Date and Time Co-Signed: 03/28/24 11:32 EDT POCT Glycated hemoglobin, to kim 12-01-2023 HbA1c (Bld) [Mass fraction] 5.9 % [employer] BI MAMMOGRAM SCREENING TOMOS YNTHESIS BILATERALon 11-09-2023 [...] IS VERY IMPORTANT TO YOUR HEALTH. THE [employer] GUIDELINES RECOMMEND THAT WOMEN 40 [...] Normal Not Available US carotid doppler BIon 09-23 US carotid doppler BI [facility] Main [place] [address] [place] [address] Ultrasound Report Signed Patient: Sarah Alfaro MR#: [id number] : 1950 Acct:[id number] Age/Sex: 73 / F ADM Date: 10/10/23 Loc: [facility] Room: Type: [facility] Attending Dr: Carissa Dias NP-C Ordering Provider: Carissa Dias APRN Date of [...] Scott Sellers M.D.10/13/2023 10:27 AM Dictation Location: [place] [address] Tech: Aissatou Helen Transcribed By: YADIRA 10/13/23 1027 Dictated By: Scott Sellers MD 10/13/23 1025 Signed By: 10/13/23 1027 Normal [facility] A1C with Estimated Average Noé santoro 09-18-2023 Glucose [Mass/Vol] 154 mg/dL Normal [facility] Comment on above: Result Comment: PERF ORMED BY: [place] [address] PATHOLOGIST UTILITY SYSTEM OPERATOR ANA LAURA MCCRARY M.D. Performed By: #### H S TROP, CBC, CK, PTT, PT, CMP #### [facility] [address] [place] [address] Alanine aminotransferase [En zymatic activity/volume] in Serum or PlasmaOrdered By: Sharmaine Wong on 09-18-2023 ALT [Catalytic activity/Vol] 25 U/L Normal [facility] Comment on above: Performed By: #### H S TROP, CBC, CK, PTT, PT, CMP #### [facility] [address] [place] [address] [place] Albumin [Mass/volume] in Ser um or Plasma by Bromocresol green (BCG) dye binding methoOrdered By: Sharmaine Wong on 09-18-2023 Albumin BCG dye [Mass/Vol] 4.4 g/dL 3.5-5.7 [facility] Alkaline phosphatase [Enzyma tic activity/volume] in Serum or PlasmaOrdered By: Sharmaine Wong on 09-18-2023 ALP [Catalytic activity/Vol] 56 U/L Normal 34-104 [facility] Comment on above: Performed By: #### H S TROP, CBC, CK, PTT, PT, CMP #### [facility] [address] Aspartate aminotransferase [ Enzymatic activity/volume] in Serum or PlasmaOrdered By: Sharmaine Wong on 09-18-2023 AST [Catalytic activity/Vol] 24 U/L Normal 13-39 [facility] Comment on above: Performed By: #### H S TROP, CBC, CK, PTT, PT, CMP #### [facility] [address] Bilirubin.total [Mass/volume ] in Serum or PlasmaOrdered By: Sharmaine Wong on 09-18-2023 Bilirubin [Mass/Vol] 1.2 mg/dL High 0.3-1.0 [facility] Comment on above: Performed By: #### H S TROP, CBC, CK, PTT, PT, CMP #### [address] Calcium [Mass/volume] in Ser um or PlasmaOrdered By: Sharmaine Wong on 09-18-2023 Calcium [Mass/Vol] 9.5 mg/dL Normal 8.6-10.3 [facility] Comment on above: Performed By: #### H S TROP, CBC, CK, PTT, PT, CMP #### [facility] [address] [place] [address] [place] Carbon dioxide, total [Moles /volume] in Serum or PlasmaOrdered By: Sharmaine Wong on 09-18-2023 CO2 [Moles/Vol] 32.1 mmol/L High 21.0-31.0 [facility] Comment on above: Performed By: #### H S TROP, CBC, CK, PTT, PT, CMP #### [facility] [address] [place] [address] [place] Chloride [Moles/volume] in S carlos or PlasmaOrdered By: Sharmaine Wong on 09-18-2023 Chloride [Moles/Vol] 104 mmol/L Normal 98-107 [facility] Comment on above: Performed By: #### H S TROP, CBC, CK, PTT, PT, CMP #### [facility] [address] [place] [address] [place] Cholesterol [Mass/volume] in Serum or PlasmaOrdered By: Sharmaine Wong on 09-18-2023 Cholesterol [Mass/Vol] 138 mg/dL Low 140-200 [facility] Comment on above: Chol less than 200 m g/dl low riskChol 201-239 mg/dl borderline riskChol 240 mg/dl and greater high risk Result Comment: Chol less than 200 mg/dl low risk Chol 201-239 mg/dl borderline risk Chol 240 mg/dl and greater high risk Performed By: #### H S TROP, CBC, CK, PTT, PT, CMP #### [facility] [address] Cholesterol in LDL Calc [Mas s/Vol]Ordered By: Sharmaine Wong on 09-18-2023 Cholesterol in LDL [Mass/Vol] 53 mg/dL 0-100 [facility] Comment on above: LDL ATP III CLASSIFI CATIONLDL less than 100 mg/dL OptimalLDL 100-129 mg/dL Near or above optimalLDL 130-159 mg/dL Borderline highLDL 160-189 mg/dL HighLDL greater than 189 mg/dL Very high Cholesterol in VLDL Calc [Ma ss/Vol]Ordered By: Sharmaine Wong on 09-18-2023 Cholesterol in VLDL [Mass/Vol] 27 mg/dL [facility] Comprehensive Metabolic Pane britney 09-18-2023 Albumin [Mass/Vol] 4.4 g/dL Normal 3.5-5.7 [facility] Comment on above: Performed By: #### H S TROP, CBC, CK, PTT, PT, CMP #### [facility] [address] [place] [address] [place] GFR/1.73 sq M.predicted MDRD (S/P/Bld) [Vol rate/Area] 52.573 mL/min/{1.73_m2} Normal [facility] Comment on above: Performed By: #### H S TROP, CBC, CK, PTT, PT, CMP #### [facility] [address] Creatinine [Mass/volume] in Serum or PlasmaOrdered By: Sharmaine Wong on 09-18-2023 Creatinine [Mass/Vol] 1.12 mg/dL Normal 0.60-1.20 [facility] Comment on above: Performed By: #### H S TROP, CBC, CK, PTT, PT, CMP #### [facility] [address] Creatinine [Mass/volume] in UrineOrdered By: Sharmaine Wong on 09-18-2023 Creatinine (U) [Mass/Vol] 282.0 mg/dL 11.0-20.0 [facility] Erythrocyte distribution wid th [Ratio] by Automated countOrdered By: Sharmaine Wong on 09-18-2023 Erythrocyte distribution width (RBC) [Ratio] 12.9 % Normal 11.9-15.3 [facility] Comment on above: Performed By: #### C BCNO #### [place] [address] [place] Erythrocytes [#/volume] in B lood by Automated countOrdered By: Sharmaine Guajardo on 09-18-2023 RBC (Bld) [#/Vol] 4.77 10*6/uL Normal 3.60-5.00 [facility] Comment on above: Performed By: #### C BCNO #### [place] [address] [place] Glucose [Mass/volume] in Ser um or PlasmaOrdered By: Sharmaine Wong on 09-18-2023 Glucose [Mass/Vol] 125 mg/dL High 70-100 [facility] Comment on above: ADA recommended refe rence rangeRandom Glucose Reference Range is dependent on time and content of last meal. Glucose of more than 200 mg/dL in a nonstressed, ambulatory subject supports the diagnosis of Diabetes Mellitus. Result Comment: [place] om Glucose Reference Range is dependent on time and content of last meal. Glucose of more than 200 mg/dL in a nonstressed, ambulatory subject supports the diagnosis of Diabetes Mellitus. ADA recommended reference range Performed By: #### H S TROP, CBC, CK, PTT, PT, CMP #### [facility] [address] Glucose mean value [Mass/vol ume] in Blood Estimated from glycated hemoglobinOrdered By: Sharmaine Wong on 09-18-2023 Average glucose Estimated from glycated hemoglobin (Bld) [Mass/Vol] 154 mg/dL [facility] Hematocrit [Volume Fraction] of Blood by Automated countOrdered By: Sharmaine Wong on 09-18-2023 Hematocrit (Bld) [Volume fraction] 44.9 % Normal 34.0-46.4 [facility] Comment on above: Performed By: #### C BCNO #### [address] Hemoglobin A1c percentageOrd ered By: Sharmaine Wong on 09-18-2023 HbA1c (Bld) [Mass fraction] 7.0 % High 4.3-5.6 [facility] Comment on above: Increased risk for d iabetes: 5.7 - 6.4diabetes: >6.4glycemic control for adults with diabetes: <7.0 Result Comment: Incr eased risk for diabetes: 5.7 - 6.4 diabetes: >6.4 glycemic control for adults with diabetes: <7.0 Performed By: #### H S TROP, CBC, CK, PTT, PT, CMP #### [facility] [address] Hemoglobin [Mass/volume] in BloodOrdered By: Sharmaine Wong on 09-18-2023 Hemoglobin (Bld) [Mass/Vol] 15.0 g/dL Normal 11.8-15.4 [facility] Comment on above: Performed By: #### C BCNO #### [facility] [address] Hemogram CBC Without Diffon 09-18-2023 Mean Corpuscular HGB Conc 33.4 g/dL Normal 32.0-35.0 [facility] Comment on above: Performed By: #### C BCNO #### [facility] [address] WBC (Bld) [#/Vol] 8.7 10*3/uL Normal 3.8-11.6 [facility] Comment on above: Performed By: #### C BCNO #### [address] Leukocytes [#/volume] correc alondra for nucleated erythrocytes in Blood by Automated counOrdered By: Sharmaine Wong on 09-18-2023 WBC corrected for nucl RBC Auto (Bld) [#/Vol] 8.7 10*3/uL 3.8-11.6 [facility] Lipid Panelon 09-18-2023 LDL Cholesterol,Calculated 53 mg/dL Normal 0-100 [facility] Comment on above: Result Comment: LDL ATP III CLASSIFICATION LDL less than 100 mg/dL Optimal LDL 100-129 mg/dL Near or above optimal LDL 130-159 mg/dL Borderline high LDL 160-189 mg/dL High LDL greater than 189 mg/dL Very high Performed By: #### H S TROP, CBC, CK, PTT, PT, CMP #### [address] Triglyceride w/Reflex 139 mg/dL Normal 0-149 [facility] Comment on above: Result Comment: TRIG ATP III CLASSIFICATION TRIG less than 150 mg/dL Normal TRIG 150-199 mg/dL Borderline high TRIG 200-500 mg/dL High TRIG greater than 500 mg/dL Very high Standard traceable to the Center for Disease Conrtrol and Prevention (CDC) test method. Performed By: #### H S TROP, CBC, CK, PTT, PT, CMP #### [address] VLDL CHOLESTEROL 27 mg/dL Normal [facility] Comment on above: Performed By: #### H S TROP, CBC, CK, PTT, PT, CMP #### [address] MCH [Entitic mass] by Automa alondra countOrdered By: Sharmaine Wong on 09-18-2023 MCH (RBC) [Entitic mass] 31.4 pg Normal 24.7-34.3 [facility] Comment on above: Performed By: #### C BCNO #### [address] MCHC Auto (RBC) [Mass/Vol]Or dered By: Sharmaine Wong on 09-18-2023 MCHC (RBC) [Mass/Vol] 33.4 g/dL 32.0-35.0 [facility] MCV [Entitic volume] by Auto mated countOrdered By: Sharmaine Wong on 09-18-2023 MCV (RBC) [Entitic vol] 94.0 fL Normal 80-100 [facility] Comment on above: Performed By: #### C BCNO #### [address] No Panel InformationOrdered By: Sharmaine Wong on 09-18-2023 Estimated GFR (CKD-EPI) 52.573 mL/Min [facility] Creatinine Clearance (Chem N/A [facility] Platelet mean volume [Entiti c volume] in Blood by Automated countOrdered By: Sharmaine Wong on 09-18-2023 Platelet mean volume (Bld) [Entitic vol] 9.0 fL Normal 6.3-10.7 [facility] Comment on above: Result Comment: PERF ORMED BY: [address] [place] [address] PATHOLOGIST UTILITY SYSTEM OPERATOR ANA LAURA MCCRARY M.D. Performed By: #### C BCNO #### [address] Platelets [#/volume] in Bloo d by Automated countOrdered By: Sharmaine Wong on 09-18-2023 Platelets (Bld) [#/Vol] 313 10*3/uL Normal 150-450 [facility] Comment on above: Performed By: #### C BCNO #### [address] Potassium [Moles/volume] in Serum or PlasmaOrdered By: Sharmaine Wong on 09-18-2023 Potassium [Moles/Vol] 4.9 mmol/L Normal 3.5-5.1 [facility] Comment on above: Performed By: #### H S TROP, CBC, CK, PTT, PT, CMP #### [place] [address] [place] Protein Creat Ratio Ur Rando mon 09-18-2023 Creatinine, Urine (Random) 282.0 mg/dL High 11.0-20.0 [facility] Comment on above: Performed By: #### H S TROP, CBC, CK, PTT, PT, CMP #### [address] Urine Protein/Creatinine Ratio 92 mg/g{Cre} Normal 0-200 [facility] Comment on above: Result Comment: PERF ORMED BY: [place] [address] PATHOLOGIST UTILITY SYSTEM OPERATOR ANA LAURA MCCRARY M.D. Performed By: #### H S TROP, CBC, CK, PTT, PT, CMP #### [place] [address] [place] Protein [Mass/volume] in Ser um or PlasmaOrdered By: Sharmaine Wong on 09-18-2023 Protein [Mass/Vol] 6.8 g/dL Normal 6.4-8.9 [facility] Comment on above: Performed By: #### H S TROP, CBC, CK, PTT, PT, CMP #### [place] [address] [place] Protein [Mass/volume] in Uri neOrdered By: Sharmaine Wong on 09-18-2023 Protein (U) [Mass/Vol] 26 mg/dL High 0-9 [facility] Comment on above: Performed By: #### H S TROP, CBC, CK, PTT, PT, CMP #### [facility] [address] Serum globulin measurement b y calculation (mass/volume)Ordered By: Sharmaine Wong on 09-18-2023 Globulin (S) [Mass/Vol] 2.4 g/dL [facility] Comment on above: Performed By: #### H S TROP, CBC, CK, PTT, PT, CMP #### [facility] [address] [place] [address] Serum or plasma albumin/glob ulin mass ratioOrdered By: Sharmaine Wong on 09-18-2023 Albumin/Globulin [Mass ratio] 1.8 {ratio} [facility] Comment on above: Performed By: #### H S TROP, CBC, CK, PTT, PT, CMP #### [facility] [address] [place] [address] Serum or plasma anion gap de terminationOrdered By: Sharmaine Wong on 09-18-2023 Anion gap [Moles/Vol] 9.8 mmol/L Normal 6.0-15.0 [facility] Comment on above: Performed By: #### H S TROP, CBC, CK, PTT, PT, CMP #### [facility] [address] [place] [address] Serum or plasma high density lipoprotein (HDL) cholesterol measurementOrdered By: Sharmaine Wong on 09-18-2023 Cholesterol in HDL [Mass/Vol] 57 mg/dL Normal 23-92 [facility] Comment on above: HDL CHOL ATP-III CLA SSIFICATION Cardiovascular RiskHDL > or equal to 60 mg/dL LOWHDL < 40 mg/dL HIGH Result Comment: HDL CHOL ATP-III CLASSIFICATION Cardiovascular Risk HDL > or equal to 60 mg/dL LOW HDL < 40 mg/dL HIGH Performed By: #### H S TROP, CBC, CK, PTT, PT, CMP #### [facility] [address] [place] [address] Serum or plasma total choles terol/high density lipoprotein (HDL) cholesterol mass ratOrdered By: Sharmaine Wong on 09-18-2023 Cholesterol.total/Chol esterol in HDL [Mass ratio] 2.4 {ratio} Normal <5.0 [facility] Comment on above: Result Comment: PERF ORMED BY: [place] [address] PATHOLOGIST UTILITY SYSTEM OPERATOR ANA LAURA MCCRARY M.D. Performed By: #### H S TROP, CBC, CK, PTT, PT, CMP #### [facility] [address] Sodium [Moles/volume] in Ser um or PlasmaOrdered By: Sharmaine Wong on 09-18-2023 Sodium [Moles/Vol] 141 mmol/L Normal 136-145 [facility] Comment on above: Performed By: #### H S TROP, CBC, CK, PTT, PT, CMP #### [facility] [address] [place] [address] Triglyceride [Mass/volume] i n Serum or PlasmaOrdered By: Sharmaine Wong on 09-18-2023 Triglyceride [Mass/Vol] 139 mg/dL 0-149 [facility] Comment on above: TRIG ATP III CLASSIF ICATIONTRIG less than 150 mg/dL NormalTRIG 150-199 mg/dL Borderline highTRIG 200-500 mg/dL High TRIG greater than 500 mg/dL Very highStandard traceable to the Center for Disease Conrtrol and Prevention (CDC) test method. Urea nitrogen [Mass/volume] in Serum or PlasmaOrdered By: Sharmaine Wong on 09-18-2023 Urea nitrogen [Mass/Vol] 21 mg/dL Normal 7-25 [facility] Comment on above: Performed By: #### H S TROP, CBC, CK, PTT, PT, CMP #### [facility] [address] [place] [address] Urine protein/creatinine rat ioOrdered By: Sharmaine Wong on 09-18-2023 Protein/Creatinine (U) [Ratio] 92 mg/g{Cre} 0-200 [facility] CHEMISTRYOrdered By: SYSTEM SYSTEM on 03-28-2023 Potassium [Moles/Vol] 5.7 mmol/L High 3.5 - 5.3 mmol/L [facility] Comment on above: Result Comment: 'Spe cimen hemolyzed. Result may be affected. Redraw is recommended.' Laboratory - CoagulationOrde red By: Scott Sellers on 12-23-2022 PT Coag (PPP) [Time] 12.9 s 9.0-12.9 [facility] Platelet poor plasma interna tional normalized ratio (INR) by coagulation assay (relatOrdered By: Scott Sellers on 12-23-2022 INR Coag (PPP) [Relative time] 1.1 {INR} [facility] Comment on above: INR Therapeutic Rang e [...] aPTT Coag (PPP) [Time] 19.5 s 25.1-36.5 [facility] Blood activated clotting mehnaz e by coagulation assayOrdered By: Scott Sellers on 12-22-2022 ACT Coag (Bld) 293 s 90-139 [facility] Comment on above: Reference Range: 90- 139 (Non-heparinized) Basophils Auto (Bld) [#/Vol] Ordered By: Scott Sellers on 12-14-2022 Basophils (Bld) [#/Vol] 0.1 10*3/uL 0.0-0.2 [facility] Basophils/100 WBC Auto (Bld) Ordered By: Scott Sellers on 12-14-2022 Basophils/100 WBC (Bld) 0.7 % . [facility] Calcium [Mass/volume] in Ser um or PlasmaOrdered By: Scott Sellers on 12-14-2022 Calcium [Mass/Vol] 9.1 mg/dL 8.2-10.2 [facility] Carbon dioxide, total [Moles /volume] in Serum or PlasmaOrdered By: Scott Sellers on 12-14-2022 CO2 [Moles/Vol] 28.0 mmol/L 22.0-30.0 [facility] Creatinine and Glomerular fi ltration rate.predicted panel (S/P/Bld)Ordered By: Scott Sellers on 12-14-2022 Creatinine [Mass/Vol] 1.00 mg/dL 0.44-1.03 [facility] Eosinophils Auto (Bld) [#/Vo l]Ordered By: Scott Sellers on 12-14-2022 Eosinophils (Bld) [#/Vol] 0.3 10*3/uL 0.0-0.45 [facility] Eosinophils/100 WBC Auto (Bl d)Ordered By: Scott Sellers on 12-14-2022 Eosinophils/100 WBC (Bld) 3.9 % . [facility] Erythrocyte distribution wid th Auto (RBC) [Ratio]Ordered By: Scott Sellers on 12-14-2022 Erythrocyte distribution width (RBC) [Ratio] 12.5 % 11.9-15.3 [facility] Estimated glomerular filtrat ion rate (GFR) non- AmericanOrdered By: Scott Sellers on 12-14-2022 GFR/1.73 sq M.predicted among non-blacks MDRD (S/P/Bld) [Vol rate/Area] 55 mL/Min [facility] Hematocrit Auto (Bld) [Volum e fraction]Ordered By: Scott Sellers on 12-14-2022 Hematocrit (Bld) [Volume fraction] 44.0 % 34.0-46.4 [facility] Hemoglobin [Mass/volume] in BloodOrdered By: Scott Sellers on 12-14-2022 Hemoglobin (Bld) [Mass/Vol] 14.7 g/dL 11.8-15.4 [facility] Leukocytes [#/volume] correc alondra for nucleated erythrocytes in Blood by Automated counOrdered By: Scott Sellers on 12-14-2022 WBC corrected for nucl RBC Auto (Bld) [#/Vol] 8.1 10*3/uL 3.8-11.6 [facility] Lymphocytes Auto (Bld) [#/Vo l]Ordered By: Scott Sellers on 12-14-2022 Lymphocytes (Bld) [#/Vol] 1.8 10*3/uL 1.00-4.8 [facility] Lymphocytes/100 WBC Auto (Bl d)Ordered By: Scott Sellers on 12-14-2022 Lymphocytes/100 WBC (Bld) 22.4 % . [facility] MCH Auto (RBC) [Entitic mass ]Ordered By: Scott Sellers on 12-14-2022 MCH (RBC) [Entitic mass] 31.6 pg 24.7-34.3 [facility] MCHC Auto (RBC) [Mass/Vol]Or dered By: Scott Sellers on 12-14-2022 MCHC (RBC) [Mass/Vol] 33.3 g/dL 32.0-35.0 [facility] MCV Auto (RBC) [Entitic vol] Ordered By: Scott Sellers on 12-14-2022 MCV (RBC) [Entitic vol] 94.8 fL 80-100 [facility] Monocytes Auto (Bld) [#/Vol] Ordered By: Scott Sellers on 12-14-2022 Monocytes (Bld) [#/Vol] 0.6 10*3/uL 0.0-0.8 [facility] Monocytes/100 WBC Auto (Bld) Ordered By: Scott Sellers on 12-14-2022 Monocytes/100 WBC (Bld) 7.2 % . [facility] Neutrophils Auto (Bld) [#/Vo l]Ordered By: Scott Sellers on 12-14-2022 Neutrophils (Bld) [#/Vol] 5.3 10*3/uL 1.8-7.7 [facility] Neutrophils/100 WBC Auto (Bl d)Ordered By: Scott Sellers on 12-14-2022 Neutrophils/100 WBC (Bld) 65.8 % . [facility] No Panel InformationOrdered By: Scott Sellers on 12-14-2022 Estimated GFR () > 60 mL/Min [facility] Comment on above: GFR estimated refere nce range: According to KDOQI guidelines, <60 ml/min/1.73m2 is sufficient to diagnose a patient with chronic kidney disease. Pharmacy Creatinine Clearance (Chem N/A [facility] Nucleated erythrocytes [Pres ence] in Blood by Automated countOrdered By: Scott Sellers on 12-14-2022 Nucleated RBC Auto Ql (Bld) 0.1 /100{WBC} 0-0.5 [facility] Platelet mean volume Auto (B ld) [Entitic vol]Ordered By: Scott Sellers on 12-14-2022 Platelet mean volume (Bld) [Entitic vol] 8.0 fL 6.3-10.7 [facility] Platelets Auto (Bld) [#/Vol] Ordered By: Scott Sellers on 12-14-2022 Platelets (Bld) [#/Vol] 220 10*3/uL 150-450 [facility] RBC Auto (Bld) [#/Vol]Ordere d By: Scott Sellers on 12-14-2022 RBC (Bld) [#/Vol] 4.65 10*6/uL 3.60-5.00 [facility] Serum or plasma anion gap de terminationOrdered By: Scott Sellers on 12-14-2022 Anion gap [Moles/Vol] 10.4 mmol/L 6.0-15.0 [facility] Serum or plasma chloride elvin surement (moles/volume)Ordered By: Scott Sellers on 12-14-2022 Chloride [Moles/Vol] 103 mmol/L 95-114 [facility] Serum or plasma glucose sudhakar urement (mass/volume)Ordered By: Scott Sellers on 12-14-2022 Glucose [Mass/Vol] 132 mg/dL 70-100 [facility] Comment on above: ADA recommended refe rence rangeRandom Glucose Reference Range is dependent on time and content of last meal. Glucose of more than 200 mg/dL in a nonstressed, ambulatory subject supports the diagnosis of Diabetes Mellitus. Serum or plasma potassium me asurement (moles/volume)Ordered By: Scott Sellers on 12-14-2022 Potassium [Moles/Vol] 4.4 mmol/L 3.5-5.1 [facility] Serum or plasma sodium measu rement (moles/volume)Ordered By: Scott Sellers on 12-14-2022 Sodium [Moles/Vol] 137 mmol/L 136-146 [facility] Urea nitrogen [Mass/volume] in Serum or PlasmaOrdered By: Scott Sellers on 12-14-2022 Urea nitrogen [Mass/Vol] 15 mg/dL 9- [facility] WBC Auto (Bld) [#/Vol]Ordere d By: Scott Sellers on 12-14-2022 WBC (Bld) [#/Vol] 8.1 10*3/uL 3.8-11.6 [facility] Basophils Auto (Bld) [#/Vol] Ordered By: Christiano Murillo on 11-22-2022 Basophils (Bld) [#/Vol] 0.1 10*3/uL 0.0-0.2 [facility] Basophils/100 WBC Auto (Bld) Ordered By: Christiano Murillo on 11-22-2022 Basophils/100 WBC (Bld) 0.6 % . [facility] Eosinophils Auto (Bld) [#/Vo l]Ordered By: Christiano Murillo on 11-22-2022 Eosinophils (Bld) [#/Vol] 0.3 10*3/uL 0.0-0.45 [facility] Eosinophils/100 WBC Auto (Bl d)Ordered By: Christiano Murillo on 11-22-2022 Eosinophils/100 WBC (Bld) 2.5 % . [facility] Erythrocyte distribution wid th Auto (RBC) [Ratio]Ordered By: Christiano Murillo on 11-22-2022 Erythrocyte distribution width (RBC) [Ratio] 12.4 % 11.9-15.3 [facility] Hematocrit Auto (Bld) [Volum e fraction]Ordered By: Christiano Murillo on 11-22-2022 Hematocrit (Bld) [Volume fraction] 42.4 % 34.0-46.4 [facility] Hemoglobin [Mass/volume] in BloodOrdered By: Christiano Murillo on 11-22-2022 Hemoglobin (Bld) [Mass/Vol] 14.3 g/dL 11.8-15.4 [facility] Leukocytes [#/volume] correc alondra for nucleated erythrocytes in Blood by Automated counOrdered By: Christiano Murillo on 11-22-2022 WBC corrected for nucl RBC Auto (Bld) [#/Vol] 10.1 10*3/uL 3.8-11.6 [facility] Lymphocytes Auto (Bld) [#/Vo l]Ordered By: Christiano Murillo on 11-22-2022 Lymphocytes (Bld) [#/Vol] 2.2 10*3/uL 1.00-4.8 [facility] Lymphocytes/100 WBC Auto (Bl d)Ordered By: Christiano Murillo on 11-22-2022 Lymphocytes/100 WBC (Bld) 21.8 % . [facility] MCH Auto (RBC) [Entitic mass ]Ordered By: Christiano Murillo on 11-22-2022 MCH (RBC) [Entitic mass] 32.1 pg 24.7-34.3 [facility] MCHC Auto (RBC) [Mass/Vol]Or dered By: Christiano Murillo on 11-22-2022 MCHC (RBC) [Mass/Vol] 33.8 g/dL 32.0-35.0 [facility] MCV Auto (RBC) [Entitic vol] Ordered By: Christiano Murillo on 11-22-2022 MCV (RBC) [Entitic vol] 94.9 fL 80-100 [facility] Monocytes Auto (Bld) [#/Vol] Ordered By: Christiano Murillo on 11-22-2022 Monocytes (Bld) [#/Vol] 0.8 10*3/uL 0.0-0.8 [facility] Monocytes/100 WBC Auto (Bld) Ordered By: Christiano Murillo on 11-22-2022 Monocytes/100 WBC (Bld) 7.7 % . [facility] Neutrophils Auto (Bld) [#/Vo l]Ordered By: Christiano Murillo on 11-22-2022 Neutrophils (Bld) [#/Vol] 6.8 10*3/uL 1.8-7.7 [facility] Neutrophils/100 WBC Auto (Bl d)Ordered By: Christiano Murillo on 11-22-2022 Neutrophils/100 WBC (Bld) 67.4 % . [facility] Nucleated erythrocytes [Pres ence] in Blood by Automated countOrdered By: Christiano Murillo on 11-22-2022 Nucleated RBC Auto Ql (Bld) 0.2 /100{WBC} 0-0.5 [facility] Platelet mean volume Auto (B ld) [Entitic vol]Ordered By: Christiano Murillo on 11-22-2022 Platelet mean volume (Bld) [Entitic vol] 8.3 fL 6.3-10.7 [facility] Platelets Auto (Bld) [#/Vol] Ordered By: Christiano Murillo on 11-22-2022 Platelets (Bld) [#/Vol] 254 10*3/uL 150-450 [facility] RBC Auto (Bld) [#/Vol]Ordere d By: Christiano Murillo on 11-22-2022 RBC (Bld) [#/Vol] 4.47 10*6/uL 3.60-5.00 [facility] WBC Auto (Bld) [#/Vol]Ordere d By: Christiano Murillo on 11-22-2022 WBC (Bld) [#/Vol] 10.1 10*3/uL 3.8-11.6 [facility] Activated partial thrombopla stin time (aPTT) in platelet poor plasma by coagulation aOrdered By: Delfino Goncalves on 11-12-2022 aPTT Coag (PPP) [Time] 30.7 s 25.1-36.5 [facility] Albumin [Mass/volume] in Ser um or PlasmaOrdered By: Delfino Goncalves on 11-12-2022 Albumin [Mass/Vol] 4.0 g/dL 3.2-5.5 [facility] Basophils Auto (Bld) [#/Vol] Ordered By: Delfino Goncalves on 11-12-2022 Basophils (Bld) [#/Vol] 0.1 10*3/uL 0.0-0.2 [facility] Basophils/100 WBC Auto (Bld) Ordered By: Delfino Goncalves on 11-12-2022 Basophils/100 WBC (Bld) 0.7 % . [facility] Creatinine and Glomerular fi ltration rate.predicted panel (S/P/Bld)Ordered By: Delfino Goncalves on 11-12-2022 Creatinine [Mass/Vol] 1.05 mg/dL 0.44-1.03 [facility] Eosinophils Auto (Bld) [#/Vo l]Ordered By: Delfino Goncalves on 11-12-2022 Eosinophils (Bld) [#/Vol] 0.3 10*3/uL 0.0-0.45 [facility] Eosinophils/100 WBC Auto (Bl d)Ordered By: Delfino Goncalves on 11-12-2022 Eosinophils/100 WBC (Bld) 3.5 % . [facility] Erythrocyte distribution wid th Auto (RBC) [Ratio]Ordered By: Delfino Goncalves on 11-12-2022 Erythrocyte distribution width (RBC) [Ratio] 12.5 % 11.9-15.3 [facility] Estimated glomerular filtrat ion rate (GFR) non- AmericanOrdered By: Delfino Goncalves on 11-12-2022 GFR/1.73 sq M.predicted among non-blacks MDRD (S/P/Bld) [Vol rate/Area] 52 mL/Min [facility] Globulin Calc (S) [Mass/Vol] Ordered By: Delfino Goncalves on 11-12-2022 Globulin (S) [Mass/Vol] 2.3 g/dL [facility] Hematocrit Auto (Bld) [Volum e fraction]Ordered By: Delfino Goncalves on 11-12-2022 Hematocrit (Bld) [Volume fraction] 42.0 % 34.0-46.4 [facility] Hemoglobin [Mass/volume] in BloodOrdered By: Delfino Goncalves on 11-12-2022 Hemoglobin (Bld) [Mass/Vol] 14.3 g/dL 11.8-15.4 [facility] Laboratory - Chemistry and C hemistry - challengeOrdered By: Delfino Goncalves on 11-12-2022 Magnesium [Mass/Vol] 2.0 mg/dL 1.6-2.6 [facility] Natriuretic peptide B (Bld) [Mass/Vol] 46.0 pg/mL 5-100 [facility] Laboratory - CoagulationOrde red By: Delfino Goncalves on 11-12-2022 PT Coag (PPP) [Time] 11.5 s 9.0-12.9 [facility] Leukocytes [#/volume] correc alondra for nucleated erythrocytes in Blood by Automated counOrdered By: Delfino Goncalves on 11-12-2022 WBC corrected for nucl RBC Auto (Bld) [#/Vol] 9.6 10*3/uL 3.8-11.6 [facility] Lymphocytes Auto (Bld) [#/Vo l]Ordered By: Delfino Goncalves on 11-12-2022 Lymphocytes (Bld) [#/Vol] 3.1 10*3/uL 1.00-4.8 [facility] Lymphocytes/100 WBC Auto (Bl d)Ordered By: Delfino Goncalves on 11-12-2022 Lymphocytes/100 WBC (Bld) 32.0 % . [facility] MCH Auto (RBC) [Entitic mass ]Ordered By: Delfino Goncalves on 11-12-2022 MCH (RBC) [Entitic mass] 31.8 pg 24.7-34.3 [facility] MCHC Auto (RBC) [Mass/Vol]Or dered By: Delfino Goncalves on 11-12-2022 MCHC (RBC) [Mass/Vol] 33.9 g/dL 32.0-35.0 [facility] MCV Auto (RBC) [Entitic vol] Ordered By: Delfino Goncalves on 11-12-2022 MCV (RBC) [Entitic vol] 93.8 fL 80-100 [facility] Monocyte distribution width [Entitic volume] in Blood by AutomatedOrdered By: Delfino Goncalves on 11-12-2022 Monocyte distribution width Auto (Bld) [Entitic vol] 16.25 % 0.00-20.00 [facility] Monocytes Auto (Bld) [#/Vol] Ordered By: Delfino Goncalves on 11-12-2022 Monocytes (Bld) [#/Vol] 0.7 10*3/uL 0.0-0.8 [facility] Monocytes/100 WBC Auto (Bld) Ordered By: Delfino Goncalves on 11-12-2022 Monocytes/100 WBC (Bld) 7.8 % . [facility] Neutrophils Auto (Bld) [#/Vo l]Ordered By: Delfino Goncalves on 11-12-2022 Neutrophils (Bld) [#/Vol] 5.4 10*3/uL 1.8-7.7 [facility] Neutrophils/100 WBC Auto (Bl d)Ordered By: Delfino Goncalves on 11-12-2022 Neutrophils/100 WBC (Bld) 56.0 % . [facility] No Panel InformationOrdered By: Delfino Goncalves on 11-12-2022 Estimated GFR () > 60 mL/Min [facility] Comment on above: GFR estimated refere nce range: According to KDOQI guidelines, <60 ml/min/1.73m2 is sufficient to diagnose a patient with chronic kidney disease. Pharmacy Creatinine Clearance (Chem 48.03 [facility] Nucleated erythrocytes [Pres ence] in Blood by Automated countOrdered By: Delfino Goncalves on 11-12-2022 Nucleated RBC Auto Ql (Bld) 0.2 /100{WBC} 0-0.5 [facility] Platelet mean volume Auto (B ld) [Entitic vol]Ordered By: Delfino Goncalves on 11-12-2022 Platelet mean volume (Bld) [Entitic vol] 8.3 fL 6.3-10.7 [facility] Platelet poor plasma interna tional normalized ratio (INR) by coagulation assay (relatOrdered By: Delfino Goncalves on 11-12-2022 INR Coag (PPP) [Relative time] 1.0 {INR} [facility] Comment on above: INR Therapeutic Rang e [...] 11-12-2022 Platelets (Bld) [#/Vol] 230 10*3/uL 150-450 [facility] Protein [Mass/volume] in Ser um or PlasmaOrdered By: Delfino Goncalves on 11-12-2022 Protein [Mass/Vol] 6.3 g/dL 6.1-7.9 [facility] RBC Auto (Bld) [#/Vol]Ordere d By: Delfino Goncalves on 11-12-2022 RBC (Bld) [#/Vol] 4.48 10*6/uL 3.60-5.00 [facility] Serum or plasma alanine smith otransferase measurement without P-5'-P (enzymatic activiOrdered By: Delfino Goncalves on 11-12-2022 ALT No additional P-5'-P [Catalytic activity/Vol] 32 U/L 10-60 [facility] Serum or plasma albumin/glob ulin mass ratioOrdered By: Delfino Goncalves on 11-12-2022 Albumin/Globulin [Mass ratio] 1.7 {ratio} [facility] Serum or plasma alkaline lalo sphatase measurement (enzymatic activity/volume)Ordered By: Delfino Goncalves on 11-12-2022 ALP [Catalytic activity/Vol] 59 U/L 32-92 [facility] Serum or plasma anion gap de terminationOrdered By: Delfino Goncalves on 11-12-2022 Anion gap [Moles/Vol] 12.1 mmol/L 6.0-15.0 [facility] Serum or plasma aspartate am inotransferase measurement (enzymatic activity/volume)Ordered By: Delfino Goncalves on 11-12-2022 AST [Catalytic activity/Vol] 27 U/L 10-42 [facility] Serum or plasma calcium sudhakar urement (mass/volume)Ordered By: Delfino Goncalves on 11-12-2022 Calcium [Mass/Vol] 9.1 mg/dL 8.2-10.2 [facility] Serum or plasma chloride elvin surement (moles/volume)Ordered By: Delfino Goncalves on 11-12-2022 Chloride [Moles/Vol] 104 mmol/L 95-114 [facility] Serum or plasma glucose sudhakar urement (mass/volume)Ordered By: Delfino Goncalves on 11-12-2022 Glucose [Mass/Vol] 149 mg/dL 70-100 [facility] Comment on above: ADA recommended refe rence rangeRandom Glucose Reference Range is dependent on time and content of last meal. Glucose of more than 200 mg/dL in a nonstressed, ambulatory subject supports the diagnosis of Diabetes Mellitus. Serum or plasma potassium me asurement (moles/volume)Ordered By: Delfino Goncalves on 11-12-2022 Potassium [Moles/Vol] 3.6 mmol/L 3.5-5.1 [facility] Serum or plasma sodium measu rement (moles/volume)Ordered By: Delfino Goncalves on 11-12-2022 Sodium [Moles/Vol] 135 mmol/L 136-146 [facility] Serum or plasma total biliru bin measurement (mass/volume)Ordered By: Delfino Goncalves on 11-12-2022 Bilirubin [Mass/Vol] 0.7 mg/dL 0.3-1.2 [facility] Serum or plasma total carbon dioxide measurement (moles/volume)Ordered By: Delfino Goncalves on 11-12-2022 CO2 [Moles/Vol] 22.5 mmol/L 22.0-30.0 [facility] Serum or plasma urea nitroge n measurement (mass/volume)Ordered By: Delfino Goncalves on 11-12-2022 Urea nitrogen [Mass/Vol] 15 mg/dL 9- [facility] Troponin I.cardiac [Mass/vol ume] in Serum or Plasma by High sensitivity methodOrdered By: Delfino Goncalves on 11-12-2022 Troponin I.cardiac High sensitivity method [Mass/Vol] 5 pg/mL 0-15 [facility] WBC Auto (Bld) [#/Vol]Ordere d By: Delfino Goncalves on 11-12-2022 WBC (Bld) [#/Vol] 9.6 10*3/uL 3.8-11.6 [facility] COVID CepheidOrdered By: Cheyenne Goncalves on 11-11-2022 SARS-CoV-2 (COVID-19) Ab IA Ql Negative Negative [facility] Comment on above: This is a duplicate Cepheid Xpert Xpress CoV-2/Flu/RSV Plus RNA by RT-PCR result to be used for statistical tracking purpose only. SARS-CoV-2 (COVID-19) RNA COBY+probe Ql (Unsp spec) [facility] Basophils Auto (Bld) [#/Vol] Ordered By: Sharmaine Wong on 06-29-2022 Basophils (Bld) [#/Vol] 0.0 10*3/uL 0.0-0.2 [facility] Basophils/100 WBC Auto (Bld) Ordered By: Sharmaine Wong on 06-29-2022 Basophils/100 WBC (Bld) 0.6 % . [facility] Bilirubin Test strip Ql (U)O rdered By: Sharmaine Wong on 06-29-2022 Bilirubin Ql (U) Negative Negative [facility] Blood hemoglobin measurement (mass/volume)Ordered By: Sharmaine Wong on 06-29-2022 Hemoglobin (Bld) [Mass/Vol] 14.4 g/dL 11.8-15.4 [facility] Blood leukocytes automated c ount (number/volume)Ordered By: Sharmaine Wong on 06-29-2022 WBC (Bld) [#/Vol] 7.4 10*3/uL 4.5-11.0 [facility] Body fluid albumin measureme nt (mass/volume)Ordered By: Sharmaine Wong on 06-29-2022 Albumin (Body fld) [Mass/Vol] 3.9 g/dL 3.2-5.5 [facility] Cholesterol [Mass/volume] in Serum or PlasmaOrdered By: Sharmaine Wong on 06-29-2022 Cholesterol [Mass/Vol] 153 mg/dL 140-200 [facility] Comment on above: Chol less than 200 m g/dl low risk Chol 201-239 mg/dl borderline risk Chol 240 mg/dl and greater high risk Cholesterol in LDL Calc [Mas s/Vol]Ordered By: Sharmaine Wong on 06-29-2022 Cholesterol in LDL [Mass/Vol] 60 mg/dL 0-100 [facility] Comment on above: LDL ATP III CLASSIFI CATION LDL less than 100 mg/dL Optimal LDL 100-129 mg/dL Near or above optimal LDL 130-159 mg/dL Borderline high LDL 160-189 mg/dL High LDL greater than 189 mg/dL Very high Cholesterol in VLDL Calc [Ma ss/Vol]Ordered By: Sharmaine Wong on 06-29-2022 Cholesterol in VLDL [Mass/Vol] 37 mg/dL [facility] Color Auto (U)Ordered By: baudiliodavid hCance on 06-29-2022 Color (U) Yellow Yellow [facility] Creatinine [Mass/volume] in UrineOrdered By: Sharmaine Wong on 06-29-2022 Creatinine (U) [Mass/Vol] 93.7 mg/dL [facility] Comment on above: No reference range e stablished Creatinine and Glomerular fi ltration rate.predicted panel (S/P/Bld)Ordered By: Sharmaine Wong on 06-29-2022 Creatinine [Mass/Vol] 1.14 mg/dL 0.44-1.03 [facility] Eosinophils Auto (Bld) [#/Vo l]Ordered By: Sharmaine Wong on 06-29-2022 Eosinophils (Bld) [#/Vol] 0.4 10*3/uL 0.0-0.45 [facility] Eosinophils/100 WBC Auto (Bl d)Ordered By: Sharmaine Wong on 06-29-2022 Eosinophils/100 WBC (Bld) 5.4 % . [facility] Erythrocyte distribution wid th Auto (RBC) [Ratio]Ordered By: Sharmaine Wong on 06-29-2022 Erythrocyte distribution width (RBC) [Ratio] 12.8 % 11.9-15.3 [facility] Estimated glomerular filtrat ion rate (GFR) non- AmericanOrdered By: Sharmaine Wong on 06-29-2022 GFR/1.73 sq M.predicted among non-blacks MDRD (S/P/Bld) [Vol rate/Area] 47 mL/Min [facility] Globulin Calc (S) [Mass/Vol] Ordered By: Sharmaine Wong on 06-29-2022 Globulin (S) [Mass/Vol] 2.5 g/dL [facility] Hematocrit Auto (Bld) [Volum e fraction]Ordered By: Sharmaine Wong on 06-29-2022 Hematocrit (Bld) [Volume fraction] 42.9 % 34.0-46.4 [facility] Ketones Auto test strip (U) [Mass/Vol]Ordered By: Sharmaine Wong on 06-29-2022 Ketones (U) [Mass/Vol] Negative Negative [facility] - Hematology and Cell countsOrdered By: Sharmaine Wong on 06-29-2022 Nucleated RBC/100 WBC (Bld) [Ratio] 0.1 % 0-0.5 [facility] Lymphocytes Auto (Bld) [#/Vo l]Ordered By: Sharmaine Wong on 06-29-2022 Lymphocytes (Bld) [#/Vol] 2.4 10*3/uL 1.00-4.8 [facility] Lymphocytes/100 WBC Auto (Bl d)Ordered By: Sharmaine Wong on 06-29-2022 Lymphocytes/100 WBC (Bld) 32.0 % . [facility] MCH Auto (RBC) [Entitic mass ]Ordered By: Sharmaine Wong on 06-29-2022 MCH (RBC) [Entitic mass] 32.2 pg 24.7-34.3 [facility] MCHC Auto (RBC) [Mass/Vol]Or dered By: Sharmaine Wong on 06-29-2022 MCHC (RBC) [Mass/Vol] 33.5 g/dL 32.0-35.0 [facility] MCV Auto (RBC) [Entitic vol] Ordered By: Sharmaine Wong on 06-29-2022 MCV (RBC) [Entitic vol] 96.0 fL 80-100 [facility] Monocytes Auto (Bld) [#/Vol] Ordered By: Sharmaine Wong on 06-29-2022 Monocytes (Bld) [#/Vol] 0.6 10*3/uL 0.0-0.8 [facility] Monocytes/100 WBC Auto (Bld) Ordered By: Sharmaine Wong on 06-29-2022 Monocytes/100 WBC (Bld) 8.0 % . [facility] Neutrophils Auto (Bld) [#/Vo l]Ordered By: Sharmaine Wong on 06-29-2022 Neutrophils (Bld) [#/Vol] 4.0 10*3/uL 1.8-7.7 [facility] Neutrophils/100 WBC Auto (Bl d)Ordered By: Sharmaine Wong on 06-29-2022 Neutrophils/100 WBC (Bld) 54.0 % . [facility] Nitrite Test strip Ql (U)Ord ered By: Sharmaine Wong on 06-29-2022 Nitrite Ql (U) Negative Negative [facility] No Panel InformationOrdered By: Sharmaine Wong on 06-29-2022 Estimated GFR () 57 mL/Min [facility] Comment on above: GFR estimated refere nce range: According to KDOQI guidelines, <60 ml/min/1.73m2 is sufficient to diagnose a patient with chronic kidney disease. Pharmacy Creatinine Clearance (Chem N/A [facility] Platelet mean volume Auto (B ld) [Entitic vol]Ordered By: Sharmaine Wong on 06-29-2022 Platelet mean volume (Bld) [Entitic vol] 8.6 fL 6.3-10.7 [facility] Platelets Auto (Bld) [#/Vol] Ordered By: Sharmaine Wong on 06-29-2022 Platelets (Bld) [#/Vol] 287 10*3/uL 150-450 [facility] Protein Auto test strip (U) [Mass/Vol]Ordered By: Sharmaine Wong on 06-29-2022 Protein (U) [Mass/Vol] Negative Negative [facility] Protein [Mass/volume] in Ser um or PlasmaOrdered By: Sharmaine Wong on 06-29-2022 Protein [Mass/Vol] 6.4 g/dL 6.1-7.9 [facility] RBC Auto (Bld) [#/Vol]Ordere d By: Sharmaine Wong on 06-29-2022 RBC (Bld) [#/Vol] 4.47 10*6/uL 3.60-5.00 [facility] Serum or plasma alanine smith otransferase measurement without P-5'-P (enzymatic activiOrdered By: Sharmaine Wong on 06-29-2022 ALT No additional P-5'-P [Catalytic activity/Vol] 23 U/L 10-60 [facility] Serum or plasma albumin/glob ulin mass ratioOrdered By: Sharmaine Wong on 06-29-2022 Albumin/Globulin [Mass ratio] 1.6 {ratio} [facility] Serum or plasma alkaline lalo sphatase measurement (enzymatic activity/volume)Ordered By: Sharmaine Wong on 06-29-2022 ALP [Catalytic activity/Vol] 54 U/L 32-92 [facility] Serum or plasma anion gap de terminationOrdered By: Sharmaine Wong on 06-29-2022 Anion gap [Moles/Vol] 14.6 mmol/L 6.0-15.0 [facility] Serum or plasma aspartate am inotransferase measurement (enzymatic activity/volume)Ordered By: Sharmaine Wong on 06-29-2022 AST [Catalytic activity/Vol] 22 U/L 10-42 [facility] Serum or plasma calcium sudhakar urement (mass/volume)Ordered By: Sharmaine Wong on 06-29-2022 Calcium [Mass/Vol] 9.3 mg/dL 8.2-10.2 [facility] Serum or plasma chloride elvin surement (moles/volume)Ordered By: Sharmaine Guajardo on 06-29-2022 Chloride [Moles/Vol] 101 mmol/L 95-114 [facility] Serum or plasma glucose sudhakar urement (mass/volume)Ordered By: Sharmaine Wong on 06-29-2022 Glucose [Mass/Vol] 136 mg/dL 70-100 [facility] Comment on above: ADA recommended refe rence range Random Glucose Reference Range is dependent on time and content of last meal. Glucose of more than 200 mg/dL in a nonstressed, ambulatory subject supports the diagnosis of Diabetes Mellitus. Serum or plasma high density lipoprotein (HDL) cholesterol measurementOrdered By: Sharmaine Wong on 06-29-2022 Cholesterol in HDL [Mass/Vol] 55 mg/dL 35-85 [facility] Comment on above: HDL CHOL ATP-III CLA SSIFICATION Cardiovascular Risk HDL > or equal to 60 mg/dL LOW HDL < 40 mg/dL HIGH Serum or plasma potassium me asurement (moles/volume)Ordered By: Sharmaine Guajardo on 06-29-2022 Potassium [Moles/Vol] 5.3 mmol/L 3.5-5.1 [facility] Serum or plasma sodium measu rement (moles/volume)Ordered By: Sharmaine Wong on 06-29-2022 Sodium [Moles/Vol] 138 mmol/L 136-146 [facility] Serum or plasma total biliru bin measurement (mass/volume)Ordered By: Sharmaine Wong on 06-29-2022 Bilirubin [Mass/Vol] 1.2 mg/dL 0.3-1.2 [facility] Serum or plasma total carbon dioxide measurement (moles/volume)Ordered By: Sharmaine Wong on 06-29-2022 CO2 [Moles/Vol] 27.7 mmol/L 22.0-30.0 [facility] Serum or plasma total choles terol/high density lipoprotein (HDL) cholesterol mass ratOrdered By: Sharmaine Wong on 06-29-2022 Cholesterol.total/Chol esterol in HDL [Mass ratio] 2.8 {ratio} <5.0 [facility] Serum or plasma urea nitroge n measurement (mass/volume)Ordered By: Sharmaine Wong on 06-29-2022 Urea nitrogen [Mass/Vol] 15 mg/dL 9-23 [facility] Specific gravity Auto test s trip (U) [Rel density]Ordered By: Sharmaine Guajardo on 06-29-2022 Specific gravity (U) [Rel density] 1.010 1.001-1.030 [facility] Triglyceride [Mass/volume] i n Serum or PlasmaOrdered By: Sharmaine Wong on 06-29-2022 Triglyceride [Mass/Vol] 188 mg/dL 35-149 [facility] Comment on above: TRIG ATP III CLASSIF ICATION TRIG less than 150 mg/dL Normal TRIG 150-199 mg/dL Borderline high TRIG 200-500 mg/dL High TRIG greater than 500 mg/dL Very high Standard traceable to the Center for Disease Conrtrol and Prevention (CDC) test method. Urine clarity by refractomet ry automatedOrdered By: Sharmaine Wong on 06-29-2022 Clarity Refractometry automated (U) Clear Clear [facility] Urine glucose measurement by automated test strip (mass/volume)Ordered By: Sharmaine Wong on 06-29-2022 Glucose Auto test strip (U) [Mass/Vol] Normal mg/dL Normal [facility] Urine hemoglobin detection b y automated test stripOrdered By: Sharmaine Guajardo on 06-29-2022 Hemoglobin Auto test strip Ql (U) Negative Negative [facility] Urine leukocyte esterase det ection by automated test stripOrdered By: Sharmaine Wong on 06-29-2022 Leukocyte esterase Auto test strip Ql (U) Negative Negative [facility] Urine microalbumin measureme nt with detection limit of 20 mg/L or less (mass/volume)Ordered By: Sharmaine Wong on 06-29-2022 Albumin DL <= 20 mg/L (U) [Mass/Vol] mg/dL 0.0-1.8 [facility] Urine microalbumin/creatinin e mass ratioOrdered By: Sharmaine Wong on 06-29-2022 Albumin/Creatinine DL <= 20 mg/L (U) [Mass ratio] TNP [facility] Comment on above: Test not performed Urobilinogen Auto test strip (U) [Mass/Vol]Ordered By: Sharmaine Wong on 06-29-2022 Urobilinogen (U) [Mass/Vol] Normal mg/dL Normal [facility] pH Auto test strip (U)Ordere d By: Sharmaine Wong on 06-29-2022 pH (U) 5.5 [pH] 5.0-9.0 [facility] 24 hour urine sodium measure ment (moles/time)Ordered By: Jazmin Mauro on 06-10-2022 Sodium (24H U) [Moles/Time] 95 mmol/24 40-220 [facility] 24 hour urine uric acid sudhakar urement (mass/time)Ordered By: Jazmin Mauro on 08-19-2022 Urate (24H U) [Mass/Time] 274.5 mg/24 hr 142.3-713.2 [facility] Comment on above: Performed at: [address] [id number] Forensic Anthropologist: Bebo Gibbons PhD, Phone: [phone] CT biopsyOrdered By: Jazmin Mauro on 06-10-2022 CT biopsy 24 Hours [facility] Calcium [Mass/time] in 24 ho ur UrineOrdered By: Jazmin Mauro on 06-10-2022 Calcium (24H U) [Mass/Time] 174 mg/24 hr 0-320 [facility] Calcium [Mass/volume] in 24 hour UrineOrdered By: Jazmin Mauro on 06-10-2022 Calcium (24H U) [Mass/Vol] 5.5 mg/dL Not Estab. [facility] Creatinine [Mass/volume] in UrineOrdered By: Jazmin Mauro on 06-10-2022 Creatinine (U) [Mass/Vol] 32.63 mg/dL [facility] Comment on above: No reference range e stablished Creatinine and Glomerular fi ltration rate.predicted panel (S/P/Bld)Ordered By: Jazmin Mauro on 06-10-2022 Creatinine [Mass/Vol] 1.16 mg/dL 0.44-1.03 [facility] Estimated glomerular filtrat ion rate (GFR) non- AmericanOrdered By: Jazmin Mauro on 06-10-2022 GFR/1.73 sq M.predicted among non-blacks MDRD (S/P/Bld) [Vol rate/Area] 46 mL/Min [facility] Magnesium [Mass/time] in 24 hour UrineOrdered By: Jazmin Mauro on 06-10-2022 Magnesium (24H U) [Mass/Time] 113.6 mg/24 hr 12.0-293.0 [facility] Magnesium [Mass/volume] in U rineOrdered By: Jazmin Mauro on 06-10-2022 Magnesium (U) [Mass/Vol] 3.6 mg/dL Not Estab. [facility] No Panel InformationOrdered By: Jazmin Mauro on 06-10-2022 Estimated GFR () 56 mL/Min [facility] Comment on above: GFR estimated refere nce range: According to KDOQI guidelines, <60 ml/min/1.73m2 is sufficient to diagnose a patient with chronic kidney disease. Pharmacy Creatinine Clearance (Chem N/A [facility] Urine Citric Acid 32 mg/L Undefined [facility] Urine Citric Acid 24 Hour 101 mg/24 hr 320-1240 [facility] Comment on above: This test was develo ped and its performance characteristics determined by [facility]. It has not been cleared or approved by the Food and Drug Administration. Performed at: [facility] [address] [id number] Forensic Anthropologist: Nir Adame MD, Phone: [phone] Urine Creatinine 24 Hour 1.03 g/24 hr 0.80-1.89 [facility] Oxalate [Mass/time] in 24 ho ur UrineOrdered By: Jazmin Mauro on 06-10-2022 Oxalate (24H U) [Mass/Time] 16 mg/24 hr 4-31 [facility] Comment on above: Performed at: [facility] [address] [id number] Forensic Anthropologist: Nir Adame MD, Phone: [phone] Oxalate [Mass/volume] in Uri neOrdered By: Jazmin Mauro on 06-10-2022 Oxalate (U) [Mass/Vol] 5 mg/L [facility] Phosphate [Mass/time] in 24 hour UrineOrdered By: Jazmin Mauro on 06-10-2022 Phosphate (24H U) [Mass/Time] 350 mg/24 hr 261-1078 [facility] Phosphate [Mass/volume] in U rineOrdered By: Jazmin Mauro on 06-10-2022 Phosphate (U) [Mass/Vol] 11.1 mg/dL Not Estab. [facility] Serum or plasma calcium sudhakar urement (mass/volume)Ordered By: Jazmin Mauro on 06-10-2022 Calcium [Mass/Vol] 9.7 mg/dL 8.2-10.2 [facility] Serum or plasma chloride elvin surement (moles/volume)Ordered By: Jazmin Mauro on 06-10-2022 Chloride [Moles/Vol] 101 mmol/L 95-114 [facility] Serum or plasma intact parat hyroid hormone measurement (mass/volume)Ordered By: Jazmin Mauro on 06-10-2022 Parathyrin.intact [Mass/Vol] 39.0 pg/mL [facility] Serum or plasma potassium me asurement (moles/volume)Ordered By: Jazmin Mauro on 06-10-2022 Potassium [Moles/Vol] 4.9 mmol/L 3.5-5.1 [facility] Serum or plasma sodium measu rement (moles/volume)Ordered By: Jazmin Mauro on 06-10-2022 Sodium [Moles/Vol] 139 mmol/L 136-146 [facility] Serum or plasma total carbon dioxide measurement (moles/volume)Ordered By: Jazmin Mauro on 06-10-2022 CO2 [Moles/Vol] 26.6 mmol/L 22.0-30.0 [facility] Serum or plasma urea nitroge n measurement (mass/volume)Ordered By: Jazmin Mauro on 06-10-2022 Urea nitrogen [Mass/Vol] 13 mg/dL 07-15 [facility] Serum or plasma uric acid me asurement (mass/volume)Ordered By: Jazmin Mauro on 06-10-2022 Urate [Mass/Vol] 6.8 mg/dL 2.6-7.2 [facility] Urine sodium measurement (mo les/volume)Ordered By: Jazmin Mauro on 06-10-2022 Sodium (U) [Moles/Vol] 30.0 mmol/L [facility] Comment on above: No reference range e stablished Urine uric acid measurement (mass/volume)Ordered By: Jazmin Mauro on 06-10-2022 Urate (U) [Mass/Vol] 8.7 mg/dL Not Estab. [facility] Urine volume measurementOrde red By: Jazmin Mauro on 06-10-2022 Specimen volume (U) 3155 ml [facility] Creatinine and Glomerular fi ltration rate.predicted panel (S/P/Bld)Ordered By: Sharmaine Wong on 05-31-2022 Creatinine [Mass/Vol] 1.06 mg/dL 0.44-1.03 [facility] Estimated glomerular filtrat ion rate (GFR) non- AmericanOrdered By: Sharmaine Wong on 05-31-2022 GFR/1.73 sq M.predicted among non-blacks MDRD (S/P/Bld) [Vol rate/Area] 51 mL/Min [facility] No Panel InformationOrdered By: Sharmaine Wong on 05-31-2022 Estimated GFR () > 60 mL/Min [facility] Comment on above: GFR estimated refere nce range: According to KDOQI guidelines, <60 ml/min/1.73m2 is sufficient to diagnose a patient with chronic kidney disease. Pharmacy Creatinine Clearance (Chem N/A [facility] Serum or plasma calcium sudhakar urement (mass/volume)Ordered By: Sharmaine Wong on 05-31-2022 Calcium [Mass/Vol] 9.1 mg/dL 8.2-10.2 [facility] Serum or plasma chloride elvin surement (moles/volume)Ordered By: Sharmaine Guajardo on 05-31-2022 Chloride [Moles/Vol] 101 mmol/L 95-114 [facility] Serum or plasma glucose sudhakar urement (mass/volume)Ordered By: Sharmaien Wong on 05-31-2022 Glucose [Mass/Vol] 135 mg/dL 70-100 [facility] Comment on above: ADA recommended refe rence range Random Glucose Reference Range is dependent on time and content of last meal. Glucose of more than 200 mg/dL in a nonstressed, ambulatory subject supports the diagnosis of Diabetes Mellitus. Serum or plasma potassium me asurement (moles/volume)Ordered By: Sharmaine Guajardo on 05-31-2022 Potassium [Moles/Vol] 4.4 mmol/L 3.5-5.1 [facility] Serum or plasma sodium measu rement (moles/volume)Ordered By: Sharmaine Wong on 05-31-2022 Sodium [Moles/Vol] 140 mmol/L 136-146 [facility] Serum or plasma total carbon dioxide measurement (moles/volume)Ordered By: Sharmaine Wong on 05-31-2022 CO2 [Moles/Vol] 26.5 mmol/L 22.0-30.0 [facility] Serum or plasma urea nitroge n measurement (mass/volume)Ordered By: Sharmaine Wong on 05-31-2022 Urea nitrogen [Mass/Vol] 14 mg/dL 9-23 [facility] Basophils Auto (Bld) [#/Vol] Ordered By: Sharmaine Wong on 05-25-2022 Basophils (Bld) [#/Vol] 0.0 10*3/uL 0.0-0.2 [facility] Basophils/100 WBC Auto (Bld) Ordered By: Sharmaine Wong on 05-25-2022 Basophils/100 WBC (Bld) 0.6 % . [facility] Blood hemoglobin measurement (mass/volume)Ordered By: Sharmaine Wong on 05-25-2022 Hemoglobin (Bld) [Mass/Vol] 14.6 g/dL 11.8-15.4 [facility] Blood leukocytes automated c ount (number/volume)Ordered By: Sharmaine Wong on 05-25-2022 WBC (Bld) [#/Vol] 7.5 10*3/uL 4.5-11.0 [facility] Body fluid albumin measureme nt (mass/volume)Ordered By: Sharmaine Wong on 05-25-2022 Albumin (Body fld) [Mass/Vol] 4.0 g/dL 3.2-5.5 [facility] Creatinine and Glomerular fi ltration rate.predicted panel (S/P/Bld)Ordered By: Sharmaine Wnog on 05-25-2022 Creatinine [Mass/Vol] 1.16 mg/dL 0.44-1.03 [facility] Eosinophils Auto (Bld) [#/Vo l]Ordered By: Sharmaine Wong on 05-25-2022 Eosinophils (Bld) [#/Vol] 0.3 10*3/uL 0.0-0.45 [facility] Eosinophils/100 WBC Auto (Bl d)Ordered By: Sharmaine Wong on 05-25-2022 Eosinophils/100 WBC (Bld) 3.6 % . [facility] Erythrocyte distribution wid th Auto (RBC) [Ratio]Ordered By: Sharmaine Wong on 05-25-2022 Erythrocyte distribution width (RBC) [Ratio] 12.9 % 11.9-15.3 [facility] Estimated glomerular filtrat ion rate (GFR) non- AmericanOrdered By: Sharmaine Wong on 05-25-2022 GFR/1.73 sq M.predicted among non-blacks MDRD (S/P/Bld) [Vol rate/Area] 46 mL/Min [facility] Globulin Calc (S) [Mass/Vol] Ordered By: Sharmaine Wong on 05-25-2022 Globulin (S) [Mass/Vol] 2.4 g/dL [facility] Hematocrit Auto (Bld) [Volum e fraction]Ordered By: Sharmaine Wong on 05-25-2022 Hematocrit (Bld) [Volume fraction] 43.9 % 34.0-46.4 [facility] Laboratory - Chemistry and C hemistry - challengeOrdered By: Sharmaine Wong on 05-25-2022 Cobalamin (Vitamin B12) [Mass/Vol] 1974 pg/mL 180-914 [facility] - Hematology and Cell countsOrdered By: Sharmaine Wong on 05-25-2022 Nucleated RBC/100 WBC (Bld) [Ratio] 0.1 % 0-0.5 [facility] Lymphocytes Auto (Bld) [#/Vo l]Ordered By: Sharmaine Wong on 05-25-2022 Lymphocytes (Bld) [#/Vol] 1.7 10*3/uL 1.00-4.8 [facility] Lymphocytes/100 WBC Auto (Bl d)Ordered By: Sharmaine Wong on 05-25-2022 Lymphocytes/100 WBC (Bld) 23.1 % . [facility] MCH Auto (RBC) [Entitic mass ]Ordered By: Sharmaine Wong on 05-25-2022 MCH (RBC) [Entitic mass] 32.1 pg 24.7-34.3 [facility] MCHC Auto (RBC) [Mass/Vol]Or dered By: Sharmaine Wong on 05-25-2022 MCHC (RBC) [Mass/Vol] 33.4 g/dL 32.0-35.0 [facility] MCV Auto (RBC) [Entitic vol] Ordered By: Sharmaine Wong on 05-25-2022 MCV (RBC) [Entitic vol] 96.0 fL 80-100 [facility] Monocytes Auto (Bld) [#/Vol] Ordered By: Sharmaine Wong on 05-25-2022 Monocytes (Bld) [#/Vol] 0.6 10*3/uL 0.0-0.8 [facility] Monocytes/100 WBC Auto (Bld) Ordered By: Sharmaine Wong on 05-25-2022 Monocytes/100 WBC (Bld) 8.2 % . [facility] Neutrophils Auto (Bld) [#/Vo l]Ordered By: Sharmaine Wong on 05-25-2022 Neutrophils (Bld) [#/Vol] 4.8 10*3/uL 1.8-7.7 [facility] Neutrophils/100 WBC Auto (Bl d)Ordered By: Sharmaine Wong on 05-25-2022 Neutrophils/100 WBC (Bld) 64.5 % . [facility] No Panel InformationOrdered By: Sharmaine Wong on 05-25-2022 Estimated GFR () 56 mL/Min [facility] Comment on above: GFR estimated refere nce range: According to KDOQI guidelines, <60 ml/min/1.73m2 is sufficient to diagnose a patient with chronic kidney disease. Pharmacy Creatinine Clearance (Chem N/A [facility] Platelet mean volume Auto (B ld) [Entitic vol]Ordered By: Sharmaine Wong on 05-25-2022 Platelet mean volume (Bld) [Entitic vol] 8.7 fL 6.3-10.7 [facility] Platelets Auto (Bld) [#/Vol] Ordered By: Sharmaine Wong on 05-25-2022 Platelets (Bld) [#/Vol] 255 10*3/uL 150-450 [facility] Protein [Mass/volume] in Ser um or PlasmaOrdered By: Sharmaine Wong on 05-25-2022 Protein [Mass/Vol] 6.4 g/dL 6.1-7.9 [facility] RBC Auto (Bld) [#/Vol]Ordere d By: Sharmaine Wong on 05-25-2022 RBC (Bld) [#/Vol] 4.57 10*6/uL 3.60-5.00 [facility] Serum or plasma alanine smith otransferase measurement without P-5'-P (enzymatic activiOrdered By: Sharmaine Wong on 05-25-2022 ALT No additional P-5'-P [Catalytic activity/Vol] 23 U/L 10-60 [facility] Serum or plasma albumin/glob ulin mass ratioOrdered By: Sharmaine Wong on 05-25-2022 Albumin/Globulin [Mass ratio] 1.7 {ratio} [facility] Serum or plasma alkaline lalo sphatase measurement (enzymatic activity/volume)Ordered By: Sharmaine Wong on 05-25-2022 ALP [Catalytic activity/Vol] 53 U/L 32-92 [facility] Serum or plasma aspartate am inotransferase measurement (enzymatic activity/volume)Ordered By: Sharmaine Wong on 05-25-2022 AST [Catalytic activity/Vol] 20 U/L 10-42 [facility] Serum or plasma calcium sudhakar urement (mass/volume)Ordered By: Sharmaine Wong on 05-25-2022 Calcium [Mass/Vol] 9.7 mg/dL 8.2-10.2 [facility] Serum or plasma chloride elvin surement (moles/volume)Ordered By: Sharmaine Guajardo on 05-25-2022 Chloride [Moles/Vol] 98 mmol/L 95-114 [facility] Serum or plasma glucose sudhakar urement (mass/volume)Ordered By: Sharmaine Wong on 05-25-2022 Glucose [Mass/Vol] 131 mg/dL 70-100 [facility] Comment on above: ADA recommended refe rence range Random Glucose Reference Range is dependent on time and content of last meal. Glucose of more than 200 mg/dL in a nonstressed, ambulatory subject supports the diagnosis of Diabetes Mellitus. Serum or plasma potassium me asurement (moles/volume)Ordered By: Sharmaine Guajardo on 05-25-2022 Potassium [Moles/Vol] 5.2 mmol/L 3.5-5.1 [facility] Serum or plasma sodium measu rement (moles/volume)Ordered By: Sharmaine Wong on 05-25-2022 Sodium [Moles/Vol] 138 mmol/L 136-146 [facility] Serum or plasma total biliru bin measurement (mass/volume)Ordered By: Sharmaine Wong on 05-25-2022 Bilirubin [Mass/Vol] 1.3 mg/dL 0.3-1.2 [facility] Comment on above: Samples from patient s who have taken Naproxen have shown spurious elevation in Total Bilirubin levels. A metabolite of Naproxen, O-desmethylnaproxen, has been shown to interfere with the Arvin-Samantha method for measuring Total Bilirubin. Serum or plasma total carbon dioxide measurement (moles/volume)Ordered By: Sharmaine Wong on 05-25-2022 CO2 [Moles/Vol] 27.9 mmol/L 22.0-30.0 [facility] Serum or plasma urea nitroge n measurement (mass/volume)Ordered By: Sharmaine Wong on 05-25-2022 Urea nitrogen [Mass/Vol] 19 mg/dL 9-23 [facility] TSH DL <= 0.005 mIU/L QnOrde red By: Sharmaine Wong on 05-25-2022 TSH Qn 4.24 m[IU]/L 0.45-5.33 [facility] SCREENING MAMMOGRAM W/RICHARD, BILATERAL*on 02-21-2022 SCREENING MAMMOGRAM W/RICHARD, BILATERAL* CLINICAL HISTORY: Screening Mammogram COMPARISON: [facility] from 2020, 2011 TECHNIQUE: 2D and 3D mammogram imaging of both breasts was performed. RESULT: DENSITY: Heterogeneously dense, which may obscure small masses. There is no suspicious mass, asymmetry, architectural distortion, or calcification. No significant change since the prior mammograms. IMPRESSION: BIRADS 1 : NEGATIVE, NORMAL INTERVAL FOLLOW UP FOLLOW UP: 12 months DENSITY: Heterogeneously dense MAMMOGRAPHY IS VERY IMPORTANT TO YOUR HEALTH. THE CURRENT [employer] GUIDELINES RECOMMENDS ANNUAL MAMMOGRAPHY BEGINNING AT AGE 40 THIS FACILITY USES A REMINDER SYSTEM TO ENSURE ALL PATIENTS RECEIVE REMINDER NOTIFICATIONS AT THE APPROPRIATE TIME BASED ON THE RECOMMENDATIONS OF THIS EXAM. Board Certified Radiologist. Accredited by the ACR and FDA. Report reported and signed by Nehemias Anderson on 02/21/2022 1050 Normal [facility] Specialist XR KUB 1 VIEWon 12-10-2020 XR KUB [...] by: TL JORDAN Date: 2020-12-10 09:32 Normal [facility] Vital Signs Date Time Vital Sign Value Performing Clinician Facility 08-30-2024 09:45-0500 Body mass index (BMI) [Ratio] 29.85 kg/m2 Sharmaine DamianTYT ([employer]) DO Work Phone: [facility] 08-30-2024 09:45-0500 Body weight 71.67 kg Sharmainera DamianAudioNamey DO Work Phone: [facility] 08-30-2024 09:45-0500 Diastolic blood pressure 76 mm[Hg] Sharmainera DamianTYT ([employer]) DO Work Phone: [facility] 08-30-2024 09:45-0500 Heart rate 67 /min Sharmainera DamianAudioNamey DO Work Phone: [facility] 08-30-2024 09:45-0500 SaO2% (BldA) [Mass fraction] 97 % Sharmaine Damian2nd Watch DO Work Phone: [facility] 08-30-2024 09:45-0500 Systolic blood pressure 122 mm[Hg] Sharmaine Damian[place] DO Work Phone: [facility] 05-07-2024 08:28-0400 Body temperature 97.8 [degF] DO Sharmaine Damian-R[place] Work Phone: [facility] 05-07-2024 08:28-0400 Diastolic blood pressure 70 mm[Hg] DO Sharmaine Damian-[place] Work Phone: [facility] 05-07-2024 08:28-0400 Heart rate 62 /min DO Sharmaine Damian-[place] Work Phone: [facility] 05-07-2024 08:28-0400 Respiratory rate 18 /min DO Sharmaine Damian-[place] Work Phone: [facility] 05-07-2024 08:28-0400 SaO2% (BldA) [Mass fraction] 97 % DO Sharmaine Damian-[place] Work Phone: [facility] 05-07-2024 08:28-0400 Systolic blood pressure 114 mm[Hg] DO Sharmaine Damian-[place] Work Phone: [facility] 05-07-2024 05:19-0400 Body weight 70 kg DO Sharmaine Damian-[place] Work Phone: [facility] 05-04-2024 21:45-0400 Body height 157.48 cm DO Sharmaine Damian-[place] Work Phone: [facility] 05-04-2024 20:19-0400 Diastolic blood pressure 72 mm[Hg] DO Sharmaine Damian-[place] Work Phone: [facility] 05-04-2024 20:19-0400 Heart rate 62 /min DO Sharmaine Damian-[place] Work Phone: [facility] 05-04-2024 20:19-0400 Respiratory rate 18 /min DO Sharmaine Damian-[place] Work Phone: [facility] 05-04-2024 20:19-0400 SaO2% (BldA) [Mass fraction] 98 % DO Sharmaine Damian-[place] Work Phone: [facility] 05-04-2024 20:19-0400 Systolic blood pressure 161 mm[Hg] DO Sharmaine Damian-[place] Work Phone: [facility] 05-04-2024 16:14-0400 Body temperature 98.2 [degF] DO Sharmaine Damian-[place] Work Phone: [facility] 05-04-2024 16:10-0400 Body height 157.48 cm DO Sharmaine Damian-[place] Grande Work Phone: [facility] 05-04-2024 16:10-0400 Body weight 69.4 kg DO Sharmaine Damian-[place] Work Phone: [facility] 04-09-2024 11:14-0400 Body height 157.48 cm DO Sharmaine Damian-[place] Work Phone: [facility] 04-09-2024 11:14-0400 Body mass index (BMI) [Ratio] 27.4 kg/m2 DO Sharmaine Damian-[place] Grande Work Phone: [facility] 04-09-2024 11:14-0400 Body temperature 97.6 [degF] DO Sharmaine Damian-[place] Work Phone: [facility] 04-09-2024 11:14-0400 Body weight 68.03 kg DO Sharmaine Damian-[place] Work Phone: [facility] 04-09-2024 11:14-0400 Diastolic blood pressure 66 mm[Hg] DO Sharmaine Damian-[place] Grande Work Phone: [facility] 04-09-2024 11:14-0400 Heart rate 64 /min DO Sharmaine Damian-[place] Work Phone: [facility] 04-09-2024 11:14-0400 Respiratory rate 16 /min DO Sharmaine Damian-[place] Work Phone: [facility] 04-09-2024 11:14-0400 SaO2% (BldA) [Mass fraction] 96 % DO Sharmaine Damian-[place] Grande Work Phone: [facility] 04-09-2024 11:14-0400 Systolic blood pressure 116 mm[Hg] DO Sharmaine Damian-[place]io [place] Work Phone: [facility] 03-28-2024 10:46-0400 Blood Pressure Location CARLA LEIGH [facility] 03-28-2024 10:46-0400 Body temperature 96.8 [degF] CARLA LEIGH [facility] 03-28-2024 10:46-0400 Diastolic blood pressure 68 mm[Hg] CARLA LEIGH [facility] 03-28-2024 10:46-0400 Heart rate 64 /min CARLA LEIGH [facility] 03-28-2024 10:46-0400 Respiratory rate 18 /min CARLA LEIGH [facility] 03-28-2024 10:46-0400 Systolic blood pressure 120 mm[Hg] CARLA LEIGH [facility] 12-01-2023 10:22-0500 Body mass index (BMI) [Ratio] 28.23 kg/m2 Sharmaine Damian-[place] DO Work Phone: [facility] 12-01-2023 10:22-0500 Body weight 67.77 kg Sharmaine Damian-[place] DO Work Phone: [facility] 12-01-2023 10:22-0500 Diastolic blood pressure 78 mm[Hg] Sharmaine Damian-[place] DO Work Phone: [facility] 12-01-2023 10:22-0500 Heart rate 62 /min Sharmaine Damian-[place] DO Work Phone: [facility] 12-01-2023 10:22-0500 SaO2% (BldA) [Mass fraction] 98 % Sharmaine Damian-[place] DO Work Phone: [facility] 12-01-2023 10:22-0500 Systolic blood pressure 124 mm[Hg] Sharmaine Damian-[place] DO Work Phone: [facility] 10-10-2023 12:30-0500 Body height 157.48 cm Carissa Dias Other [employer] Other 10-10-2023 12:30-0500 Body mass index (BMI) [Ratio] 28.16 kg/m2 Carissa Larissa Other [employer] Other 10-10-2023 12:30-0500 Body temperature 97.6 [degF] Carissa Larissa Other [employer] Other 10-10-2023 12:30-0500 Body weight 69.85 kg Carissa Larissa Other [employer] Other 10-10-2023 12:30-0500 Diastolic blood pressure 68 mm[Hg] Carissa Dias Other [employer] Other 10-10-2023 12:30-0500 SaO2% (BldA) [Mass fraction] 98 % Carissa Dias Other [employer] Other 10-10-2023 12:30-0500 Systolic blood pressure 116 mm[Hg] Carissa Dias Other [employer] Other 04-10-2023 10:45-0400 Body height 157.48 cm Carissa Dias Other [employer] Other 04-10-2023 10:45-0400 Body mass index (BMI) [Ratio] 29.63 kg/m2 Carissa Dias Other [employer] Other 04-10-2023 10:45-0400 Body temperature 97.3 [degF] Carissa Dias Other [employer] Other 04-10-2023 10:45-0400 Body weight 73.48 kg Carissa Dias Other [employer] Other 04-10-2023 10:45-0400 Diastolic blood pressure 62 mm[Hg] Carissa Dias Other [employer] Other 04-10-2023 10:45-0400 SaO2% (BldA) [Mass fraction] 98 % Carissa Dias Other [employer] Other 04-10-2023 10:45-0400 Systolic blood pressure 110 mm[Hg] Carissa Dias Other [employer] Other 03-31-2023 09:18-0400 Diastolic blood pressure 66 mm[Hg] DO Sharmaine Damian-[place]io Grande Work Phone: [facility] 03-31-2023 09:18-0400 Heart rate 58 /min DO Sharmaine Damian-[place]io Grande Work Phone: [facility] 03-31-2023 09:18-0400 Respiratory rate 16 /min DO Sharmaine Damian-[place] Work Phone: [facility] 03-31-2023 09:18-0400 SaO2% (BldA) [Mass fraction] 98 % DO Sharmaine Damian-[place] Work Phone: [facility] 03-31-2023 09:18-0400 Systolic blood pressure 128 mm[Hg] DO Sharmaine Damian-[place]io Grande Work Phone: [facility] 03-31-2023 07:34-0400 Body height 157.48 cm DO Sharmaine Damian-[place] Grande Work Phone: [facility] 03-31-2023 07:34-0400 Body temperature 98.2 [degF] DO Sharmaine Damian-[place] Grande Work Phone: [facility] 03-31-2023 07:34-0400 Body weight 74.84 kg DO Sharmaine Damian-[place] Work Phone: [facility] 03-28-2023 12:54-0400 Blood Pressure Location CARLA LEIGH [facility] 03-28-2023 12:54-0400 Diastolic blood pressure 74 mm[Hg] CARLA LEIGH [facility] 03-28-2023 12:54-0400 Heart rate 67 /min CARLA LEIGH [facility] 03-28-2023 12:54-0400 Respiratory rate 16 /min CARLA LEIGH [facility] 03-28-2023 12:54-0400 Systolic blood pressure 132 mm[Hg] CARLA LEIGH [facility] 01-16-2023 12:15-0400 Body height 157.48 cm Carissa Canodamian Other [employer] Other 01-16-2023 12:15-0400 Body mass index (BMI) [Ratio] 29.63 kg/m2 Carissa Petebhavana Other [employer] Other 01-16-2023 12:15-0400 Body temperature 97.3 [degF] Carissa Petebhavana Other [employer] Other 01-16-2023 12:15-0400 Body weight 73.48 kg Carissa Dias Other [employer] Other 01-16-2023 12:15-0400 Diastolic blood pressure 74 mm[Hg] Carissa Petebhavana Other [employer] Other 01-16-2023 12:15-0400 SaO2% (BldA) [Mass fraction] 96 % Carissa Petebhavana Other [employer] Other 01-16-2023 12:15-0400 Systolic blood pressure 116 mm[Hg] Carissa Petebhavana Other [place] [employer] Other 12-23-2022 08:00-0500 Inhaled oxygen flow rate 2 L/min DO Sharmaine Damian-[place] Grande Work Phone: [facility] 12-23-2022 05:34-0500 Body weight 73 kg DO Sharmaine Damian-[place] Work Phone: [facility] 12-23-2022 04:00-0500 Body temperature 98 [degF] DO Sharmaine Damian-[place] Work Phone: [facility] 12-23-2022 04:00-0500 Diastolic blood pressure 53 mm[Hg] DO Sharmaine Damian-[place] Grande Work Phone: [facility] 12-23-2022 04:00-0500 Heart rate 70 /min DO Sharmaine Damian-[place] Work Phone: [facility] 12-23-2022 04:00-0500 Respiratory rate 14 /min DO Sharmaine Damian-[place] Work Phone: [facility] 12-23-2022 04:00-0500 SaO2% (BldA) [Mass fraction] 95 % DO Sharmaine Damian-[place] Grande Work Phone: [facility] 12-23-2022 04:00-0500 Systolic blood pressure 102 mm[Hg] DO Sharmaine Damian-[place] Work Phone: [facility] 12-22-2022 11:48-0500 Body height 157.48 cm DO Sharmaine Damian-[place] Work Phone: [facility] 12-22-2022 11:48-0500 Body mass index (BMI) [Ratio] 28.9 kg/m2 DO Sharmaine Damian-[place] Work Phone: [facility] 11-12-2022 04:08-0500 Diastolic blood pressure 89 mm[Hg] DO Sharmaine Damian-[place] Work Phone: [facility] 11-12-2022 04:08-0500 Heart rate 89 /min DO Sharmaine Damian-[place] Work Phone: [facility] 11-12-2022 04:08-0500 Respiratory rate 16 /min DO Sharmaine Damian-[place] Work Phone: [facility] 11-12-2022 04:08-0500 SaO2% (BldA) [Mass fraction] 96 % DO Sharmaine Damian-[place] Work Phone: [facility] 11-12-2022 04:08-0500 Systolic blood pressure 175 mm[Hg] DO Sharmaine Damian-[place] Work Phone: [facility] 11-11-2022 23:42-0500 Body height 157.48 cm DO Sharmaine Damian-[place] Work Phone: [facility] 11-11-2022 23:42-0500 Body weight 77.4 kg DO Sharmaine Damian-[place] Work Phone: [facility] 11-11-2022 23:41-0500 Body temperature 98 [degF] DO Sharmaine Damian-[place] Work Phone: [facility] 06-22-2022 09:44-0400 Body height 157.48 cm DO Sharmanie Damian-[place] Work Phone: [facility] 06-22-2022 09:44-0400 Body weight 74.38 kg DO Sharmaine Damian-[place] Work Phone: [facility] 05-31-2022 13:30-0400 Body height 157.48 cm Carissa Dias Other [employer] Other 05-31-2022 13:30-0400 Body mass index (BMI) [Ratio] 29.63 kg/m2 Carissa Dias Other [employer] Other 05-31-2022 13:30-0400 Body temperature 97.1 [degF] Carissa Dias Other [employer] Other 05-31-2022 13:30-0400 Body weight 73.48 kg Carissa Dias Other [employer] Other 05-31-2022 13:30-0400 Diastolic blood pressure 64 mm[Hg] Carissa Dias Other [employer] Other 05-31-2022 13:30-0400 SaO2% (BldA) [Mass fraction] 97 % Carissa Dias Other [employer] Other 05-31-2022 13:30-0400 Systolic blood pressure 112 mm[Hg] Carissa Dias Other [employer] Other Encounters Encounter Date Encounter Type Care Provider Facility Start: 09-03-2024 End: 09-03-2024 ambulatory AMBROSIO MCGHEE Not Available Start: 08-30-2024 End: 08-30-2024 Office outpatient visit 25 minutes Sharmaine Wong DO Work Phone: [facility] Comment on above: Medicare annual well ness visit, subsequent (Primary Dx); ACP (advance care planning); Type 2 diabetes mellitus with stage 3a chronic kidney disease, without long-term current use of insulin (HCC) ([facility]); Essential hypertension ([facility]); Carotid stenosis, bilateral; Hyperlipidemia LDL goal <100 ([facility]); Arthritis of left knee; Stage 3a chronic kidney disease (HCC) ([facility]); TIA (transient ischemic attack); BMI 29.0-29.9,adult Start: 08-30-2024 End: 08-30-2024 Patient encounter procedure Sharmaine Wong DO Work Phone: [facility] Work Phone: Start: 08-30-2024 End: 08-30-2024 ambulatory SHARMAINE WONG Not Available Start: 05-08-2024 End: 05-08-2024 ambulatory SHARMAINE WONG Not Available Start: 05-04-2024 End: 05-07-2024 ambulatory Sharmaine Gómezy Facility:[facility] Start: 05-04-2024 End: 05-07-2024 Evaluation and management of inpatient DO Sharmaine Wong Work Phone: [facility] [place] [facility] Work Phone: Start: 05-04-2024 End: 05-07-2024 observation encounter DO Sharmaine Daliay Work Phone: [facility] Work Phone: Start: 04-09-2024 End: 04-09-2024 ambulatory DO Sharmaine Daliay Work Phone: [facility] Work Phone: Start: 04-09-2024 End: 04-09-2024 Patient encounter procedure DO Sharmaine Wong Work Phone: [facility] Vascular Surgery Work Phone: Start: 03-28-2024 End: 03-28-2024 ambulatory SHALONDA JON Facility:[facility] Start: 03-28-2024 End: 03-28-2024 Patient encounter procedure CARLA JON [facility] [place] Start: 12-01-2023 End: 12-01-2023 Office outpatient visit 25 minutes Sharmaine Wong DO Work Phone: [facility] Comment on above: Type 2 diabetes federico itus with stage 3a chronic kidney disease, without long-term current use of insulin (HCC) (CMS/HCC) (Primary Dx); Stage 3a chronic kidney disease (HCC) (CMS/HCC); Hyperlipidemia LDL goal <100 (CMS/HCC); Essential hypertension (CMS/HCC); BMI 28.0-28.9,adult; Viral upper respiratory tract infection Start: 12-01-2023 End: 12-01-2023 ambulatory SHARMAINE WONG Not Available Start: 11-09-2023 End: 11-09-2023 ambulatory AFIA LEON Not Available Start: 10-10-2023 End: 10-10-2023 Patient encounter procedure DO Sharmaine Damian-[place] Work Phone: [facility]-Ultrasound [facility] Vascular Start: 10-10-2023 End: 10-10-2023 ambulatory DO Sharmaine Damian-[place] Work Phone: [facility] Work Phone: Start: 09-20-2023 End: 09-20-2023 ambulatory SHARMAINE WONG Not Available Start: 09-18-2023 End: 09-18-2023 Patient encounter procedure DO Sharmaine Damian-[place] Work Phone: [facility]-Lab [facility] Start: 09-18-2023 End: 09-18-2023 ambulatory DO Sharmaine Martinaver-[place] Work Phone: [facility] Work Phone: Start: 09-05-2023 End: 09-05-2023 ambulatory ESTELA HANNAH Not Available Start: 04-10-2023 End: 04-10-2023 Patient encounter procedure Carissa Dias [facility] Start: 04-10-2023 End: 04-10-2023 ambulatory DO Sharmaine Damian[place] Work Phone: [facility] Work Phone: Start: 03-31-2023 End: 03-31-2023 Admission to same day surgery center DO Sharmaine Damian-[place] Work Phone: [facility]-Digestive Health Work Phone: Start: 03-29-2023 End: 03-29-2023 Patient encounter procedure Jazmin MAURO [facility] Start: 03-28-2023 End: 03-28-2023 Lab Drop off CARLA JON [facility] Start: 03-28-2023 End: 03-28-2023 Patient encounter procedure CARLA JON [facility] [place] Start: 01-16-2023 End: 01-16-2023 ambulatory Carissa Dias Other [employer] Other Start: 01-16-2023 Patient encounter procedure Carissa Dias [facility] Vascular Surgery Start: 12-27-2022 End: 12-27-2022 ambulatory Scott Sellers Other [employer] Other Start: 12-27-2022 Telephone encounter Scott Sellers [facility] Vascular Surgery Start: 12-22-2022 End: 12-23-2022 Evaluation and management of inpatient DO Sharmaine Damian-[place] Work Phone: [facility] [place] [facility] Work Phone: Start: 12-14-2022 End: 12-14-2022 ambulatory DO Sharmaine Damian-[place] Work Phone: [facility] Work Phone: Start: 12-14-2022 End: 12-14-2022 Patient encounter procedure DO Sharmaine Damian-[place] Work Phone: [facility]-Pre-Surgical Testing Work Phone: Start: 12-07-2022 End: 12-07-2022 ambulatory Scott العراقيjosé miguel Other [employer] Other Start: 12-07-2022 Telephone encounter Scott Sellers [facility] Start: 12-05-2022 End: 12-05-2022 ambulatory DO Sharmaine Damian-[place] Work Phone: [facility] Work Phone: Start: 12-05-2022 End: 12-05-2022 Patient encounter procedure DO Sharmaine Damian-[place] Work Phone: [facility]-Ultrasound [facility] Vascular Start: 11-22-2022 End: 11-22-2022 ambulatory DO Sharmaine Damian-[place] Work Phone: [facility] Work Phone: Start: 11-22-2022 End: 11-22-2022 Patient encounter procedure DO Sharmaine Damian-[place] Work Phone: [facility]-Lab Main [place] Work Phone: Start: 11-15-2022 End: 11-15-2022 ambulatory Imad Asaad Other [facility] [employer] Other Start: 11-15-2022 Telephone encounter Imad Asaad [facility] Methodologist Start: 11-11-2022 End: 11-12-2022 Emergency department patient visit DO Sharmaine Damian-[place] Work Phone: [facility]-Emergency Room Work Phone: Start: 07-20-2022 End: 07-20-2022 ambulatory Carissa Dias Other [facility] [employer] Other Start: 07-20-2022 Telephone encounter Carissa Reynolds [facility] Start: 06-29-2022 End: 06-29-2022 Patient encounter procedure DO Sharmaine Damian-[place] Work Phone: [facility]-Lab [facility] Start: 06-22-2022 End: 06-22-2022 Patient encounter procedure DO Sharmaine Damian-[place] Work Phone: [facility]-MRI Main [place] Start: 06-10-2022 End: 06-10-2022 Patient encounter procedure DO Sharmaine Damian-[place] Work Phone: [facility]-Lab [facility] Start: 06-03-2022 End: 06-03-2022 Patient encounter procedure DO Sharmaine Damian-[place] Work Phone: [facility]-Ultrasound Main [place] Start: 05-31-2022 End: 05-31-2022 ambulatory Carissa Dias Other [facility] [employer] Other Start: 05-31-2022 End: 05-31-2022 Patient encounter procedure Carissa Dias [facility] Start: 05-25-2022 End: 05-25-2022 Patient encounter procedure DO Sharmaine Damian-[place] Work Phone: [facility] Start: 12-10-2020 End: 12-11-2020 Patient encounter procedure JAZMIN ZUNILDA Facility:[facility]1 Procedures Date Procedure Procedure Detail Performing Clinician Start: 08-30-2024 Hemoglobin glycosylated a1c Sharmaine Damian-[place] Grande DO Work Phone: Start: 05-06-2024 MRI of head DO Sharmaine Damian-[place] Grande Work Phone: Start: 05-04-2024 CT angiography of head DO Sharmaine Damian-[place] Work Phone: Start: 05-04-2024 CT angiography of ne ck vessels DO Sharmaine Damian-[place] Work Phone: Start: 05-04-2024 CT of head without contrast DO Sharmaine Damian-[place] Work Phone: Start: 05-04-2024 SARS-CoV-2, Influenz a & RSV (PCR) DO Sharmaine Damian-[place] Work Phone: Start: 05-04-2024 Urine culture DO Sharmaine Damian-[place] Work Phone: Start: 04-09-2024 Doppler ultrasonogra phy of bilateral carotid arteries DO Sharmaine Martinaver-[place] Work Phone: Start: 12-01-2023 Hemoglobin glycosylated a1c Sharmaine Damian-[place] DO Work Phone: Start: 11-09-2023 Mammography Sharmaine Hook DO Work Phone: Start: 03-31-2023 Screening colonoscopy D O Sharmaine Wong Work Phone: Start: 03-31-2023 Colonoscopy Sharmaine Hook DO Work Phone: Start: 12-22-2022 Insertion of carotid artery stent DO Sharmaine Wong Work Phone: Start: 12-05-2022 Doppler ultrasonogra phy of bilateral carotid arteries DO Sharmaine Wong Work Phone: Start: 11-11-2022 Plain chest X-ray DO Sa henrique Wong Work Phone: Start: 11-11-2022 SARS-CoV-2, Influenz a & RSV (PCR) DO Sharmaine Wong Work Phone: Start: 10-23-2022 Endarterectomy CARLA JON Start: 06-22-2022 MRI of head DO Sharmaine Wong Work Phone: Start: 06-03-2022 Doppler ultrasonogra phy of bilateral carotid arteries DO Sharmaine Wong Work Phone: Start: 06-30-2016 Cystourethroscopy wi th dilation of urethral stricture CARLA JON Comment on above: RT ureteroscopy Start: 11-20-2008 Cystoscopic removal of ureteric stent CARLA JON Start: 11-12-2008 Extracorporeal shock wave lithotripsy of calculus of kidney CARLA JON Comment on above: RT Start: 08-18-2004 Extracorporeal shock wave lithotripsy of calculus of kidney CARLA JON Comment on above: RT retro/ureteropyel ogram/RT ESWL/double J stent placement Hysterectomy CARLA JON Screening for malign ant neoplasm of colon Carissa Dias Other Plan of Treatment Date Care Activity Detail Author Start: 11-15-2032 Screening for malignant neoplasm of colon [facility] Start: 08-30-2025 Medicare Annual Wellness (AWV) Medicare Annual Wellness (AWV) [facility] Start: 12-26-2024 End: 12-26-2024 Patient encounter procedure 12/26/2024 9:30 AM EST Office Visit [facility] [address] [place] [id number] Sharmaine Wong, DO [address] [place] [address] [facility] Start: 11-30-2024 Hemoglobin A1c measurement Diabetes: Hemoglobin A1C [facility] Start: 11-23-2024 Glaucoma screening Diabetes: Retinopathy Screening [facility] Start: 11-09-2024 Screening for malignant neoplasm of breast Mammogram [facility] Start: 09-20-2024 Medicare Annual Wellness (AWV) Medicare Annual Wellness (AWV) [facility] Start: 09-18-2024 Urine screening for protein Diabetes: Urine Protein Screening [facility] Start: 09-03-2024 End: 09-03-2024 Patient encounter procedure 09/03/2024 4:20 PM EST Office Visit [facility] [address] [place] [id number] Ambrosio Mcghee DPM [address] [facility] [address] [place] [address] [facility] Start: 05-08-2024 End: 05-08-2024 Patient encounter procedure 05/08/2024 9:45 AM EDT Office Visit [facility] [address] [place] [id number] Sharmaine Wong, DO [address] [place] [address] [facility] Start: 05-06-2024 [facility] Start: 05-05-2024 [facility] Start: 05-04-2024 MRI of head MR head/brain wo [facility] Start: 05-04-2024 Referral to neurologist [facility] Start: 05-04-2024 [facility] Start: 05-04-2024 Hospital admission [facility] Start: 05-04-2024 Telemedicine consultation with patient [facility] Start: 05-04-2024 Bacteria identified in Blood by Culture [facility] Start: 05-04-2024 Bacteria identified in Urine by Culture [facility] Start: 05-04-2024 Blood culture for bacteria, including anaerobic screen Blood Culture [facility] Start: 02-29-2024 Hemoglobin A1c measurement Diabetes: Hemoglobin A1C [facility] Start: 10-10-2023 Doppler ultrasonography of bilateral carotid arteries US carotid doppler [facility] Start: 10-10-2023 US.doppler Carotid arteries - [facility] Start: 04-10-2023 Doppler ultrasonography of bilateral carotid arteries US carotid doppler [facility] Start: 04-10-2023 US.doppler Carotid arteries - [facility] Start: 03-31-2023 [facility] Start: 12-23-2022 [facility] Start: 12-22-2022 Hospital admission [facility] Start: 12-22-2022 Sleep disorder assessment [facility] Start: 12-05-2022 Doppler ultrasonography of bilateral carotid arteries US carotid doppler [facility] Start: 12-05-2022 US.doppler Carotid arteries - [facility] Start: 11-11-2022 Plain chest X-ray XR chest 1V portable [facility] Start: 11-11-2022 XR Chest Single view [facility] Start: 06-22-2022 MRI of head MR head/brain wo [facility] Start: 06-22-2022 End: 06-22-2022 Patient encounter procedure Departed [facility] [place] Start: 06-10-2022 End: 06-10-2022 Patient encounter procedure Departed [facility] [place] Start: 06-03-2022 Doppler ultrasonography of bilateral carotid arteries US carotid doppler BI [facility] Start: 06-03-2022 End: 06-03-2022 Patient encounter procedure Departed [facility] [place] Start: 1950 Screening for malignant neoplasm of colon [facility] Glucose measurement estimated from glycated hemoglobin [facility] Patient Education [facility] Work Phone: Patient referral [facility] Work Phone: US.doppler Carotid arteries - bilateral [facility] Immunizations Immunization Date Immunization Notes Care Provider Delvis renee 08-23-2024 influenza, high dose seasonal, preservative-free Sharmaine Damian[place] DO Work Phone: [facility] 08-28-2023 influenza virus vacc ine, unspecified formulation CARLA LEIGH [facility] 08-28-2023 Influenza, High-dose Seasonal, Quadrivalent, Preservative Free Sharmaine Damian[place] DO Work Phone: [facility] 06-30-2022 influenza virus vacc ine, unspecified formulation CARLA LEIGH [facility] 06-30-2022 influenza, high dose seasonal, preservative-free Sharmaine Damian[place] DO Work Phone: [facility] 09-03-2021 COVID-19 mRNA, Comir falguni (Pfizer) DO Sharmaine Dam[place] Work Phone: [facility] 09-01-2021 SARS-CoV-2 (COVID-19 ) Ad26 vaccine, recombinant CARLA LEIGH [facility] 08-13-2021 COVID-19 mRNA, Comir falguni (Pfizer) DO Sharmaine Damian[place] Work Phone: [facility] 07-28-2021 SARS-CoV-2 (COVID-19 ) Ad26 vaccine, recombinant CARLA LEIGH [facility] 07-15-2021 influenza virus vacc ine, unspecified formulation CARLA LEIGH [facility] 07-15-2021 influenza, high dose seasonal, preservative-free Sharmaine Damian[place] DO Work Phone: [facility] 06-30-2021 influenza virus vacc ine, unspecified formulation CARLA LEIGH [facility] 07-31-2020 influenza virus vacc ine, unspecified formulation CARLA LEIGH [facility] 07-31-2020 pneumococcal polysaccharide vaccine, 23 valent CARLA LEIGH [facility] 07-31-2020 Seasonal, trivalent, recombinant, injectable influenza vaccine, preservative free Sharmaine Damian[place] DO Work Phone: [facility] 07-06-2020 influenza virus vacc ine, unspecified formulation CARLA LEIGH [facility] 12-21-2019 zoster vaccine recombinant CARLA LEIGH [facility] 10-17-2019 zoster vaccine recombinant CARLA LEIGH [facility] 07-01-2019 influenza virus vacc ine, live, attenuated, for intranasal use CARLA LEIGH [facility] 01-28-2019 pneumococcal conjuga te vaccine, 13 valent CARLA LEIGH [facility] 08-10-2018 influenza virus vacc ine, unspecified formulation CARLA JON [facility] 11-02-2017 influenza virus vacc ine, unspecified formulation CARLA JON [facility] 01-20-2016 influenza, seasonal, injectable, preservative free Sharmaine Wong DO Work Phone: [facility] 01-20-2016 varicella virus vaccine ERIC MOREIRA LEIGH [facility] 07-21-2015 influenza virus vacc ine, unspecified formulation CARLA JON [facility] Payers Date Payer Category Payer Self-pay [id number] 2022 Private Health Insurance [employer] [id number] 2022 Unknown [employer] [id number] 2022-Present [address] [place] [address] [id number] 2017 Medicare [id number] 2017 Medicare [id number] 1959 Medicare [id number] 1959 Unknown [id number] 1950 Unknown [id number] 1950 Unknown [id number] [id number] .727 1950 Unknown [id number] .1259 1950 Unknown [id number] [id number] .1259 1950 Unknown [id number] [id number] .1259 1950 Unknown [id number] [id number] .1259 1950 Unknown [id number] 2.16.840.1.649327.3.579.2 .1259 1950 Unknown [id number] 2.16.840.1.587897.3.579.2 .1259 1950 Unknown [id number] [id number] .1259 Unknown [facility] [id number] Unknown [id number] .531 Unknown [id number] 2.16.840.1.744782.3.579.2 .531 Unknown [id number] [id number] .531 Unknown [id number] .531 Social History Date Type Detail Facility Unknown if ever smoked [facility] Work Phone: Start: 12-01-2023 End: 08-30-2024 Sex Assigned At [facility] Start: 02-08-2021 End: 06-04-2023 Tobacco smoking status NHIS Never smoked tobacco (finding) [facility] Start: 1950 Sex Assigned At Female F [facility] Tobacco smoking status Never [facility] Start: 06-04-2023 Tobacco use and exposure Smokeless tobacco non-user [facility] Start: 12-01-2023 End: 08-30-2024 Alcohol intake Lifetime non-drinker (finding) [facility] Start: 12-01-2023 End: 08-30-2024 History of Social function [facility] Start: 06-04-2023 Alcohol Comment caffeine: 1 cu p of coffee a day [facility] Start: 1950 Sex Assigned At Not on file [facility] Medical Equipment Procedure Code Equipment Code Equipment Original Text Equipment Identifier Dates Transcarotid artery revascularization (TCAR) Bare-metal carotid artery stent ()[id number] [facility] Start: 12-22-2022 Goals Date Patient Goal Desired Activity /State Functional Status Date Assessment Result Facility 05-07-2024 Functional status Patient at [facility] Work Phone: 03-28-2024 Functional Status N/A [facility] 03-28-2023 Functional Status N/A [facility] 12-23-2022 Functional status Patient at [facility] Work Phone: Mental Status Date Assessment Result Facility 05-07-2024 Cognitive function Cognitive Sta tus Patient at [facility] Work Phone: 12-23-2022 Cognitive function Cognitive Sta tus Patient at [facility] Work Phone: Clinical Notes 05-31-2022 to 08-30-2024 Sharmaine Wong, DO - 08/30/2024 10:29 AM Michele Wong, DO - 08/30/2024 10:28 AM Michele Wong DO - 08/30/2024 10:27 AM EST Note Date & Type Note Facility 08-30-2024 History of Presen t illness Narrative Associated Problem(s): Arthritis of left knee She has F/U scheduled Associated Problem(s): TIA (transient ischemic attack) Continue risk factor modifications to reduce CV complication risks Associated Problem(s): Stage 3a chronic kidney disease [...] to any changes in your kidney function. Associated Problem(s): Hyperlipidemia LDL goal <100 (CMS/HCC) -Reinforced importance of dietary modification, regular cardiovascular activity and compliance with any prescribed medication for residential management/control of lipids. High cholesterol (especially LDL) is associated with an elevated risk of cardiovascular disease. This includes coronary artery disease. stroke and peripheral vascular disease. High cholesterol has also been linked to diabetes and high blood pressure risks. By appropriately treating LDL, these risks can be reduced. Associated Problem(s): Carotid stenosis, bilateral Continue with risk factor optimization Associated Problem(s): Essential hypertension (CMS/HCC) BP continue to do well. Will continue current meds and dosing. Will continue to monitor Associated Problem(s): Type 2 diabetes mellitus with kidney complication, without long-term current use of insulin ([facility]) -At this appt, I reinforced the importance of dietary modification, routine exercise and weight control for residential DM management and reduction in risk for development and progression of complications (like vision loss, kidney failure, neuropathy, and increased risk of heart attack and stroke). Chart reviewed to make sure patient is up to date on screenings for DM related comorbidities (ie annual dilated eye exam, annual GISSELLE and other labs and reminded to do daily foot exams). Specific goals for A1c and BP were reviewed and ways to achieve this goals discussed. Images from the original note were not included. Subjective : Chief Complaint: Sarah Alfaro (: 1950) is an 74 y.o. female here for an annual Medicare Wellness visit. HPI Sarah is being seen today for 4 her month follow up, MWV with INKER and managment of her chronic conditions with Dr. Damian. Pt lab results from 05/04/2024, for reference. Care Gaps indicate recommendations for HbA1c and this will be done in office today. Pt will be due for a GISSELLE screening soon. Pt had a seasonal flu vaccine on 08/23/24 at her local pharmacy, update EHR. Diabetes Management -DM was diagnosed 08/2023 (IFG progressed to DM) -Associated complications: CKD 3a -Current Medications: diet controlled at this time -Pt does not check her bs at this time -Previous A1c completed: in 04/2024 = 6.4% -Most recent A1c: in 08/2024 = 6.2% (stable from previous) -Last GISSELLE: 08/2023 -Last lipids: 04/2024 -Last DM eye exam completed: 10/27/23 -Findings on eye exam: No evidence of DR Current Outpatient Medications Medication Instructions amLODIPine (NORVASC) 5 mg, Oral, Daily aspirin 81 mg, Every 24 hours atorvastatin (LIPITOR) 80 mg, Oral, Daily escitalopram (Lexapro) 10 MG tablet TAKE 1 TABLET BY MOUTH EVERY DAY estradiol (ESTRACE) 1 g, 2 times weekly metoprolol succinate XL (TOPROL-XL) 100 mg, Oral, Daily No Known Allergies Past Medical History: Diagnosis Date Anxiety Anxiety disorder 09/05/2023 Arthritis Carotid stenosis, bilateral 12/2022 left carotid stenting done by Dr Sellers Chronic cystitis without hematuria 09/05/2023 Frequency of urination 09/05/2023 History of kidney stones History of shingles Hyperlipidemia (CMS/HCC) Hypertension ([facility]/HCC) 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 Migraine headache ([facility]/HCC) 09/05/2023 Obesity Plantar fasciitis 11/[address] Mcghee TIA (transient ischemic attack) 01/2021 Evaluated by Neurology TIA (transient ischemic attack) 05/04/2024 Urinary, incontinence, stress female 09/05/2023 Patient's PSH, SOCHx and Family Hx have been reviewed and updated if needed. Review of Systems Constitutional: Negative for activity change, appetite change, fatigue and unexpected weight change. HENT: Negative for ear pain, hearing loss, sinus pain, trouble swallowing and voice change. Eyes: Negative for photophobia, pain and visual disturbance. Respiratory: Negative for cough, shortness of breath and wheezing. Cardiovascular: Negative for chest pain, palpitations and leg swelling. Gastrointestinal: Negative for abdominal distention, abdominal pain, blood in stool and nausea. Genitourinary: Negative for difficulty urinating, dysuria and hematuria. She uses estrogen cream for tx of vaginal dryness Musculoskeletal: Positive for arthralgias and back pain. Negative for gait problem and joint swelling. -Right posterior flank discomfort (has been present for years). Seems to be related to need for BM -hx plantar fasciitis. She has seen Podiatry/Dr Mcghee 2022 and he did an injection. 04/2024: She has modified her shoe choice to have better arch support and this has really helped with sx management 08/2024- she has recently had injections for back and knee and reports SIGNIFICANT improvement in sx Skin: Negative for rash and wound. Neurological: Negative for dizziness, tremors, speech difficulty, weakness, numbness and headaches. Psychiatric/Behavioral: Negative for confusion, decreased concentration, hallucinations and sleep disturbance. Endocrine: Negative for polydipsia, polyphagia and polyuria. Allergic/Immunologic: Negative for immunocompromised state. List of current healthcare providers: Patient Care Team: Sharmaine Wong DO as PCP - General (Internal Medicine) Sharmaine Wong DO as PCP - ACO Reach Dax De Oliveira MD as Referring Physician (Ophthalmology) Jazmin Mauro MD as Referring Physician (Urology) Scott Sellers MD as Referring Physician (Vascular Surgery) Medicare Annual Visit Over the past 2 weeks, how often have you been bothered by any of the following problems? Little interest or pleasure in doing things: Not at all Feeling down, depressed, or hopeless: Not at all Patient Health Questionnaire-2 Score: 0 Glez Fall Risk History of Falling, Immediate or Within 3 Months: No Mental Status: Oriented to own ability Health Risk Assessment Form Do you need help eating, bathing, using the toilet, dressing, or getting around your home?: No Can you prepare your own meals?: Yes Can you do your own housework without help?: Yes Can you shop for groceries or clothes without help?: Yes Do you exercise for about 20 minutes 3 or more days a week?: No How confident are you that you can control and manage most of your health problems?: Very confident Can you mange your money, credit cards and accounts, pay bills and taxes?: Yes Vision Screening: Yes, 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 Recent Results (from the past 12 weeks) POCT Glycated hemoglobin, total Collection Time: 08/30/24 10:12 AM Result Value Ref Range Hemoglobin A1C 6.2 Physical Exam Constitutional: General: She is not [...] Skin is not jaundiced. Findings: No rash. Comments: 04/2024- right elbow bruised. Bruising right forearm (from IV) sites Neurological: General: No focal deficit present. Mental Status: She is alert and oriented to person, place, and time. Motor: No weakness. Gait: Gait normal. Psychiatric: Mood and Affect: Mood normal. Thought Content: Thought content normal. Judgment: Judgment normal. Assessment/Plan : Problem List Items Addressed This Visit Carotid stenosis, bilateral Overview -left carotid stent 12/[address] Sellers. She was on Plavix for ~3 months -05/04/2024 she presented to ER with RUE numbness. CT/CTA neck showed: 1) calcified plaque contributing to significant stenosis of origin of right vertebral artery. 2) calcified plaque left ICA terminus contributing to at least moderate narrowing. To remain in ASA (plavix was stopped by Vascular Surgery) Current Assessment & Plan Continue with risk factor optimization Essential hypertension ([facility]) Overview She is prescribed amlodipine and metoprolol Current Assessment & Plan BP continue to do well. Will continue current meds and dosing. Will continue to monitor Hyperlipidemia LDL goal <100 ([facility]/HCC) Overview Prescribed atorvastatin. Her LDL improved from 190 to 75 on 80 mg daily! 08/2023 LDL=53 04/2024 LDL=64 Current Assessment & Plan -Reinforced importance of dietary modification, regular cardiovascular activity and compliance with any prescribed medication for residential management/control of lipids. High cholesterol (especially LDL) is associated with an elevated risk of cardiovascular disease. This includes coronary artery disease. stroke and peripheral vascular disease. High cholesterol has also been linked to diabetes and high blood pressure risks. By appropriately treating LDL, these risks can be reduced. Type 2 diabetes mellitus with kidney complication, without long-term current use of insulin ([facility]/HCC) Overview Her IFG has progressed to DM (08/2023): A1c went from 6.1% in Jun 2022 to 7.0%. 12/01/2023: She made diet changes (really decreased the CHOs). She lost 10# and A1c came down to 5.9%! Advised that will change back to IFG is A1c remains <6.4% at next visit 04/2024 A1c=6.4% 08/2024 A1c= 6.2% Current Assessment & Plan -At this appt, I reinforced the importance of dietary modification, routine exercise and weight control for residential DM management and reduction in risk for development and progression of complications (like vision loss, kidney failure, neuropathy, and increased risk of heart attack and stroke). Chart reviewed to make sure patient is up to date on screenings for DM related comorbidities (ie annual dilated eye exam, annual GISSELLE and other labs and reminded to do daily foot exams). Specific goals for A1c and BP were reviewed and ways to achieve this goals discussed. Relevant Orders POCT Glycated hemoglobin, total (Completed) Stage 3a chronic kidney disease (HCC) (CMS/HCC) Overview 04/2024- eGFR stable Current Assessment & Plan -We will continue [...] to any changes in your kidney function. TIA (transient ischemic attack) Overview 04/2024- after (another) admit for TIA the plavix was restarted and she will continue this indefinitely (but can stop the ASA after 21 days) 08/2024- she has preferred to stop plavix and just be on ASA Current Assessment & Plan Continue risk factor modifications to reduce CV complication risks Arthritis of left knee Overview She reports the U-Charmaine supplement she took REALLY helped her arthritis, but then there was FDA advisory regarding it due to contamination with diclofenac and omeprazole. 08/2024 She recently had injection in the knee and reports this has significantly improved her sx Current Assessment & Plan She has F/U scheduled Other Visit Diagnoses Medicare annual wellness visit, subsequent - Primary Patient here for annual Medicare Wellness visit with Jason Leon NP. Demographics were updated. Self-assessment was completed. Past medical, family, and social history were updated. The medication list, including supplements being taken, was updated. A list of other current medical providers was established/updated. Time was spent discussing health maintenance issues, ordering proper testing, and a schedule was provided regarding recommended screening. We discussed safety issues and fall risk. Depression screening was completed and addressed. Fall screening was completed and addressed. Cognitive function was assessed by direct observation and assessment of ability to perform ADL's and IADL's was done. The current BMI was provided and will continue to be monitored at routine office visits as well. Major risk factors for chronic disease including family history were discussed and a list was provided with the care plan. ACP (advance care planning) Discussed LW/POA with patient. Patient does have this in place at this time. BMI 29.0-29.9,adult Discussed importance of dietary modifications for longterm management The following health maintenance schedule was reviewed with the patient and provided in printed form in the after visit summary: Health Maintenance Topic Date Due Diabetes: Urine Protein Screening 09/18/2024 Mammogram 11/09/2024 Diabetes: Retinopathy Screening 11/23/2024 Diabetes: Hemoglobin A1C 11/30/2024 Medicare Annual Wellness (AWV) 08/30/2025 Colorectal Cancer Screening 11/15/2032 Influenza Vaccine Completed Pneumococcal Vaccine: 65+ Years Completed Immunization History Administered Date(s) Administered Influenza, High Dose Seasonal, Preservative Free 07/15/2021, 06/30/2022, 08/23/2024 Influenza, High-dose Seasonal, Quadrivalent, Preservative Free 08/28/2023 Influenza, Recombinant, injectable, preservative free 07/31/2020 Influenza, seasonal, injectable, preservative free 01/20/2016 Pfizer Purple Cap SARS-CoV-2 Vaccination 08/13/2021, 09/03/2021 Pneumococcal Conjugate PCV 13 01/28/2019 Pneumococcal Polysaccharide PPSV23 07/31/2020 Varicella 01/20/2016 Zoster, Recombinant 10/17/2019, 12/21/2019 Orders Placed This Encounter Procedures POCT Glycated hemoglobin, total -This patient was seen and examined by one of our Advanced Care Practitioner (INKER/PA) for the Medicare Wellness portion of this visit. History was confirmed/verified and mendoza elements of the physical exam were also completed by myself. The assessment and plan has been reviewed and amended as needed. I am in agreement with the information as documented above. -Patient's chronic conditions have been reviewed in [...] the patient encounter. -Follow up in about 4 months (around 12/28/2024) for routine appt for monitoring and management of chronic conditions. Order mammogram and DEXA at next appt. Also created a reminder to labs to she can to at [facility] PTV Sharmaine Wong DO Board Certified Legislative Analyst documented in this encounter [facility] 05-06-2024 Discharge summary Note Date/Time May 06, 2024 6:37pm [facility] [address] [place] [address] Discharge Summary Signed Patient: Sarah Alfaro MR#: [id number] : 1950 Acct:[id number] Age/Sex: 74 / F Adm Date: 4 Loc: Room: [address] [place] [address]: Kameron Pires MD Copies to: MD Sharmaine Willett DO~ Providers Date of Discharge: 05/06/24 Discharging Provider: Kameron Pires Primary Care Provider: Sharmaine Wong Consults: 05/04/24 16:02 Consult to Telemedicine Stat [...] to schedule a post hospital appointment.) Sharmaine Wong DO [Primary Care Provider] - 05/13/24 10:00 am [...] 2 Days Documented By: Kameron Pires MD 05/06/24 1835 Signed By: <Electronically signed by Kameron Pires MD> 05/06/24 [address] [facility] Work Phone: 1(659) 972-967807-15-2024 Progress note Author Kameron Pires [facility] May 06, 2024 5:02pm Note Date/Time May 06, 2024 5:02 pm [facility] [address] [place] [address] Hospitalist Progress Note Signed Patient: Sarah Alfaro MR#: [id number] : 1950 Acct:[id number] Age/Sex: 74 / F Adm Date: 4 Loc: Room: [address] [place] [address] Type: ADM INOo Attending Dr: Kameron Pires [...] signed by Kameron Pires MD> 05/06/24 1702 [facility] Work Phone: 1(245) 734-280307-15-2024 Progress note Author Hiren Abrams [facility] May 06, 2024 4:29pm Note Date/Time May 06, 2024 4:29 pm [facility] [address] [place] [address] Neurology Progress Note Signed Patient: Sarah Alfaro MR#: [id number] : 1950 Acct:[id number] Age/Sex: 74 / F Adm Date: 4 Loc: Room: [address] [place] [address] Type: ADM INOo Attending Dr: Kameron Pires [...] 05/06/24 12:00 05/06/24 12:00 05/06/24 12:00 05/06/24 12:05/06/24 08:00 Narrative: Neurological exam: General: The patient [...] above Documented By: Hiren Abrams DO 4 1626 Signed By: <Electronically signed by Hiren Abrams DO> 05/06/24 4148 [facility] Work Phone: 1(870) 262-655707-14-2024 Progress note Author Marvin Iglesias [facility] May 05, 2024 1:50pm Note Date/Time May 05, 2024 1:28 pm [facility] [address] [place] [address] Hospitalist Progress Note Signed Patient: Sarah Alfaro MR#: [id number] : 1950 Acct:[id number] Age/Sex: 74 / F Adm Date: 4 Loc: Room: 6P9169-5 Type: ADM INOo Attending Dr: Marvin Iglesias [...] promoted and sold for pain on various websites,including?https://www.2Nite2Nite.net.Liftopia and possibly in some retail stores. FDA [...] not be taken with certain medications.? Health healthcare market consultant and consumers should report adverse events or side effects related to the use of this product to FDA's [employer] Th[employer] Safety Information and Adverse Event Reporting Program: I, Dr. Igleisas, did complete the online [employer] report yesterday after I admitted her. Exam Physical Exam Vital Signs: Temp Pulse Resp BP Pulse Ox O2 Del Method 98.2 F 65 16 133/78 97 Room Air 05/05/24 11:08 05/05/24 11:08 05/05/24 11:08 05/05/24 11:08 05/05/24 11:05/05/24 11:08 Narrative: GEN: Awake, [...] <Electronically signed by Marvin Iglesias DO> 05/05/24 1516 [facility] Work Phone: 1(243) 653-122207-14-2024 Consult note Author Julian Diaz [facility] May 05, 2024 10:11am Note Date/Time May 05, 2024 10:1 1am [facility] [address] [place] [address] Neurology Consult Note Signed Patient: Sarah Alfaro MR#: [id number] : 1950 Acct:[id number] Age/Sex: 74 / F Adm Date: 4 Loc: Room: [address] [place] [address] Type: ADM INOo Attending Dr: Marvin Iglesias DO Copies to: DO Sharmaine Mehta DO Steven Benedict, MD~ HPI Consult Date: 05/05/24 Honing Machine Set Up Operator: Julian Diaz MD Reason for consult: Stroke [...] evaluation. [facility] and deemed to not be [...] pain .receive steroid injection Kidney stones dr mauro Hypercholesteremia TIA (transient ischemic attack) Anxiety Arthritis [...] 25mcg PO DAILY 12/14/22 [History Confirmed 05/04/24] eaygvqbx-zasd-jftl 8 mg-folic 400 mcg-K 50 mcg-lutein 300 [...] Ata Samuel M.D.05/04/2024 4:23 PM Dictation Location: [place] [address] Head CTA 05/04/24 16:09 IMPRESSION: There is [...] Ata Samuel M.D.05/04/2024 4:33 PM Dictation Location: [place] [address] Assessment/Plan (1) TIA (transient ischemic attack): Assessment/Problem [...] signed by MD Julian Diaz> 05/05/24 1011 [facility] Work Phone: 1(672) 661-580907-13-2024 History and physical note Author Marvin Iglesias [facility] May 04, 2024 9:30pm Note Date/Time May 04, 2024 9:29 pm [facility] [address] [place] [address] Hospitalist H&P Signed Patient: Sarah Alfaro MR#: [id number] : 1950 Acct:[id number] Age/Sex: 74 / F Adm Date: 4 Loc: 3T Room: [address] [place] [address] Type: ADM INOo Attending Dr: Marvin Iglesias [...] The emergency room made contact with the [facility] stroke neurointerventional team who recommended that [...] the formulation of this which comes from [employer]. I showed the patient and her family [...] and sold for pain on various websites, including?https://www.2Nite2Nite.net.Liftopia and possibly in some retail stores. FDA [...] not be taken with certain medications.? Health healthcare market consultant and consumers should report adverse events or side effects related to the use of this product to FDA's [employer] Th[employer] Safety Information and Adverse Event Reporting Program: I, Dr. Iglesias, did go ahead and complete the [employer] Online Voluntary Reporting Form for this incident. [...] pain .receive steroid injection Kidney stones dr mauro Hypercholesteremia TIA (transient ischemic attack) Anxiety Arthritis [...] 25mcg PO DAILY 12/14/22 [History Confirmed 05/04/24] wovphgqf-dodq-hsdy 8 mg-folic 400 mcg-K 50 mcg-lutein 300 [...] % (Auto) 13.3 % (.) 05/04/24 16:10 [place] % (Auto) 7.6 % (.) 05/04/24 16:10 Eos % (Auto) 1.9 % (.) 05/04/24 16:10 Baso % (Auto) 0.9 % (.) 05/04/24 16:10 Nucleat RBC Rel Count 0.1 /100 WBC (0-0.5) 05/04/24 16:10 Neut # (Auto) 12.5 x10E3/uL (1.8-7.7) H 05/04/24 16:10 Lymph # (Auto) 2.2 x10E3/uL (1.00-4.8) 05/04/24 16:10 [place] # (Auto) 1.2 x10E3/uL (0.0-0.8) H 05/04/24 [...] pH 5.5 (5.0-9.0) 05/04/24 16:31 Ur Specific [place] > 1.050 (1.001-1.030) H 05/04/24 16:31 Urine [...] <Electronically signed by Marvin Iglesias DO> 05/04/242129 [facility] Work Phone: 1(262) 605-980206-06-2024 Hospital Discharge instructions Patient Education 03/28/2024 11:30:43 [...] provider. Document Revised: 02/17/2022 Document Reviewed: 02/17/2022 [employer] Patient Education 2022 [employer] Follow Up Care 03/28/2023 13:31:18 With:CARLA JON PA-C, URL Address: [address] [place] [address] [phone] When: Unknown Comments:18 mos (no labs) [facility] 06-06-2024 Note From: Linda Singh To: EU - Administrative; Sent: 03/28/2024 11:53:00 EDT Show up: 12/21/2024 11:52:00 EST Subject: Ambulatory Reminder Due Date/Time: 09/22/2025 11:52:00 EST Reminder/Recall Patient needs scheduled for a 1.5 yr follow up with [facility] when schedules are built that far out. Due in 10/16[facility]02-09-2024 History of Present illness Narrative* Sharmaine Wong DO - 12/01/2023 10:47 AM EST Associated [...] changes in your kidney function. * Sharmaine Wong DO - 12/01/2023 10:47 AM ESTAssociated Problem(s): Hyperlipidemia LDL goal <100 (CMS/HCC) -Reinforced importance of dietary modification, regular cardiovascular activity and compliance withany prescribed medication for residential management/control of lipids. High cholesterol (especially LDL) is associated with an elevated risk of cardiovascular disease. This includes coronary artery disease. stroke and peripheral vascular disease. High cholesterol has also been linked to diabetes and high blood pressure risks. By appropriately treating LDL, these risks can be reduced. * Sharmaine Wong DO - 12/01/2023 10:47 AM ESTAssociated Problem(s): Essential hypertension (CMS/HCC) BP looks good. Continue current medications and monitor * Sharmaine oWng DO - 12/01/2023 10:00 AM EST Images from the original note were not included. Subjective Patient ID: Sarah Alfaro (: 1950) is a 73 y.o. female [...] recent A1c: in 11/2023 = 5.9% -Last GISSELLE: 08/2023 -Last lipids: 08/2023 -Last DM eye exam completed: 10/2023: Pt reports she had an eye exam in October at [facility], will call for report Findings on eye [...] of left knee Carotid stenosis, bilateral Dysthymia ([facility]) Essential hypertension ([facility]) Hyperlipidemia LDL goal <100 ([facility]) Type 2 diabetes mellitus with kidney complication, without long-term current use of insulin ([facility]) ([facility] Primary localized osteoarthrosis of ankle and foot Stage 3a chronic kidney disease (HCC) ([facility]) TIA (transient ischemic attack) Hypocitraturic calcium nephrolithiasis [...] -hx plantar fasciitis. She has seen Podiatry/Dr Mcghee 2022 and he did an injection Skin: [...] List Items Addressed This Visit Essential hypertension ([facility]) Overview She is prescribed amlodipine and metoprolol Current Assessment & Plan BP looks good. Continue current medications and monitor Hyperlipidemia LDL goal <100 ([facility]) Overview Prescribed atorvastatin. Her LDL improved from 190 to 75 on 80 mg daily! 08/2023 LDL=53 Current Assessment & Plan -Reinforced importance of dietary modification, regular cardiovascular activity and compliance withany prescribed medication for residential management/control of lipids. High cholesterol (especially LDL) is associated with an elevated risk of cardiovascular disease. This includes coronary artery disease. stroke and peripheral vascular disease. High cholesterol has also been linked to diabetes and high blood pressure risks. By appropriately treating LDL, these risks can be reduced. Type 2 diabetes mellitus with kidney complication, without long-term current use of insulin (HCC) ([facility]) - Primary Overview Her IFG has progressed [...] (Completed) Stage 3a chronic kidney disease (HCC) ([facility]) Current Assessment & Plan -We will continue [...] visit for management of chronic conditions. Sharmaine Wong D.O. Board Certified Legislative Analyst documented in this encounterCameron Regional Medical [id number] Evaluation note* Encounter Date Diagnosis Assessment Notes [...] we will move onto annual follow-up thereafter. [employer] Other 06-19-2023 Evaluation note* Encounter Date Diagnosis [...] the meantime with any issues or concerns. [facility] Other 06-06-2023 Hospital Discharge instructions Patient Education [...] you may eat and drink normally. Take uzyj-fhw-zmkhhjg and prescription medicines only as told by your health care provider. Let your health care provider know about any medicines that you are taking, including zsyo-esb-hfxzvns medicines, vitamins, herbs, and supplements. Choose a [...] provider. Document Revised: 04/15/2022 Document Reviewed: 04/15/2022 [employer] Patient Education 2022 [employer]. Follow Up Care 03/16/2023 10:27:03 With:ZUNILDA URBINA, Jazmin Barrera, URL Address: [address] [place] [address]- When:1 year [facility] 03-27-2023 Evaluation note* Encounter Date Diagnosis Assessment [...] the meantime with any issues or concerns. [facility] Other 08-09-2022 Evaluation note* Encounter Date Diagnosis [...] agrees with this plan, denies any questions. [facility] Other Discharge summary Author Scott Sellers [facility] December 23, 2022 8:30am Note Date/Time December 23, 2022 8:30 am [facility] [address] [place] [address] Discharge Summary Signed Patient: Sarah Alfaro MR#: [id number] : 1950 Acct:[id number] Age/Sex: 72 / F Adm Date: 3 Loc: Room: [address] [place] [address]: Scott Sellers MD Copies to: MD Sharmaine Rao,DO~ Providers Date of Discharge: 12/23/22 Discharging Provider: Scott Sellers Primary Care Provider: Sharmaine Wong Consults: 12/22/22 10:18 Consult to Sleep Lab [...] signed by MD Scott Sellers> 12/23/22 0830 [facility] Work Phone: Evaluation + Plan note Future Appointments Appointment Date:03/28/2024 11:00:00 AM Scheduled Provider:CARLA JON PA-C Location:[facility] Appointment Type:URO Office Visit [facility] evaluation + Plan note Future Appointments Appointment Date:03/28/2024 11:00:00 AM Scheduled Provider:CARLA JON PA-C Location:[facility] Appointment Type:URO Office Visit Diagnostic Tests Pending * eGFR 03/28/23 [facility] note[facility] assessment information available [facility] Work Phone: Evaluation noteNo InformationNort [employer] Other Evaluation note* Diagnosis Type 2 diabetes mellitus with stage 3a chronic kidney disease, without long-term current use of insulin (HCC) ([facility])- Primary Stage 3a chronic kidney disease (HCC) ([facility]) Hyperlipidemia LDL goal <100 ([facility]) Other and unspecified hyperlipidemia Essential hypertension ([facility]) Unspecified essential hypertension BMI 28.0-28.9,adult Viral upper respiratory tract infection Acute upper respiratory infections of unspecified site documented in this encounter [facility]* Diagnosis Onset Date Resolution Status Carotid stenosis, bilateral acute Non-smoker acute [facility] Work Phone: Evaluation note* Diagnosis Onset Date Resolution Status Carotid stenosis, bilateral acute Non-smoker acute Accelerated hypertension acu te Arthritis acute Carotid stenosis, bilateral acute Hypercholesteremia acute Hypertension acute Poisoning by vitamins, accid ental (unintentional), initial encounter acute TIA (transient ischemic attack) acute Transient cerebral ischemia acute [facility] Work Phone: Evaluation note* Diagnosis Essential hypertension ([facility])- Primary Unspecified essential hypertension Hyperlipidemia LDL goal <100 ([facility]) Other and unspecified hyperlipidemia IFG (impaired fasting glucose) Stage 3a chronic kidney disease (HCC) ([facility]) Hypocitraturic calcium nephrolithiasis Calculus of kidney Hyponatremia Hyposmolality and/or hyponatremia Primary hypertension ([facility]) Unspecified essential hypertension Bilateral hearing loss, unspecified hearing loss type BMI 31.0-31.9,adult Medicare annual wellness visit, subsequent- Primary ACP (advance care planning) Other specified counseling Class 1 obesity BMI 30.0-30.9,adult Type 2 diabetes mellitus with stage 3a chronic kidney disease, without long-term current use of insulin (HCC) ([facility]) Hypocitraturic calcium nephrolithiasis Calculus of kidney Stage 3a chronic kidney disease (HCC) ([facility]) Essential hypertension ([facility]) Unspecified essential hypertension Hyperlipidemia LDL goal <100 ([facility]/H[facility]) Other and unspecified hyperlipidemia Carotid stenosis, bilateral Occlusion and stenosis of carotid artery without mention of cerebral infarction Dysthymia ([facility]) Dysthymic disorder Encounter for screening mammogram for malignant neoplasm of breast Type 2 diabetes mellitus with stage 3a chronic kidney disease, without long-term current use of insulin (HCC) ([facility]/HCC)- Primary Stage 3a chronic kidney disease (HCC) ([facility]/HCC) Hyperlipidemia LDL goal <100 ([facility]) Other and unspecified hyperlipidemia Essential hypertension ([facility]/HCC) Unspecified essential hypertension BMI 28.0-28.9,adult Viral upper respiratory tract infection Acute upper respiratory infections of unspecified site TIA (transient ischemic attack)- Primary Unspecified transient cerebral ischemia Hospital discharge follow-up Other follow-up examination Type 2 diabetes mellitus with stage 3a chronic kidney disease, without long-term current use of insulin (HCC) ([facility]) Essential hypertension ([facility]) Unspecified essential hypertension Hyperlipidemia LDL goal <100 (CMS/HCC) Other and unspecified hyperlipidemia Carotid stenosis, bilateral Occlusion and stenosis of carotid artery without mention of cerebral infarction Stage 3a chronic kidney disease (HCC) ([facility]) Medicare annual wellness visit, subsequent- Primary ACP (advance care planning) Other specified counseling Type 2 diabetes mellitus with stage 3a chronic kidney disease, without long-term current use of insulin (HCC) ([facility]) Essential hypertension ([facility]) Unspecified essential hypertension Carotid stenosis, bilateral Occlusion and stenosis of carotid artery without mention of cerebral infarction Hyperlipidemia LDL goal <100 ([facility]) Other and unspecified hyperlipidemia Arthritis of left knee Stage 3a chronic kidney disease (HCC) ([facility]) TIA (transient ischemic attack) Unspecified transient cerebral ischemia BMI 29.0-29.9,adult documented in this encounter [facility] HealthcareHistory and physical note Author Marvin Iglesias [facility] May 04, 2024 9:30pm Note Date/Time May 04, 2024 9:29 pm [facility] [address] [place] [address] Hospitalist H&P Signed Patient: Sarah Alfaro MR#: [id number] : 1950 Acct:[id number] Age/Sex: 74 / F Adm Date: 4 Loc: Room: [address] [place] [address] Type: ADM INOo Attending Dr: Marvin Iglesias [...] The emergency room made contact with the [facility] stroke neurointerventional team who recommended that [...] the formulation of this which comes from [employer]. I showed the patient and her family [...] and sold for pain on various websites, including?https://www.[employer] and possibly in some retail stores. FDA [...] not be taken with certain medications.? Health healthcare market consultant and consumers should report adverse events or side effects related to the use of this product to FDA's [employer] Safety Information and Adverse Event Reporting Program: I, Dr. Iglesias, did go ahead and complete the [employer] Voluntary Reporting Form for this incident. [...] pain .receive steroid injection Kidney stones dr mauro Hypercholesteremia TIA (transient ischemic attack) Anxiety Arthritis [...] 25mcg PO DAILY 12/14/22 [History Confirmed 05/04/24] wgntqoqv-yxyp-lqrp 8 mg-folic 400 mcg-K 50 mcg-lutein 300 [...] % (Auto) 13.3 % (.) 05/04/24 16:10 [place] % (Auto) 7.6 % (.) 05/04/24 16:10 Eos % (Auto) 1.9 % (.) 05/04/24 16:10 Baso % (Auto) 0.9 % (.) 05/04/24 16:10 Nucleat RBC Rel Count 0.1 /100 WBC (0-0.5) 05/04/24 16:10 Neut # (Auto) 12.5 x10E3/uL (1.8-7.7) H 05/04/24 16:10 Lymph # (Auto) 2.2 x10E3/uL (1.00-4.8) 05/04/24 16:10 [place] # (Auto) 1.2 x10E3/uL (0.0-0.8) H 05/04/24 [...] pH 5.5 (5.0-9.0) 05/04/24 16:31 Ur Specific [place] > 1.050 (1.001-1.030) H 05/04/24 16:31 Urine [...] <Electronically signed by Marvin Iglesias DO> 05/04/242129 [facility] Work Phone: Hisbscg general Narrative - Reported* Type Description Date Medical History HYPERTENSION Medical History GENERALIZED ARTHRITIS Medical History KIDNEY STONES Medical History MACULAR DEGENERATION Medical History CAROTID STENOSIS Surgical History LITHOTRIPSY X3 Surgical History HYSTERECTOMY Surgical History CHOLECYSTECTOMY Surgical History TONSILLECTOMY Surgical History CATARACT SUGERY (BILAT) Hospitalization History kidney stones/ Infection x1 week stay 1994 Hospitalization History TIA 01/2021 [facility] Other Hisoaww general Narrative - Reported* Type Description Date Medical History HYPERTENSION Medical History GENERALIZED ARTHRITIS Medical History KIDNEY STONES Medical History MACULAR DEGENERATION Medical History CAROTID STENOSIS Surgical History LITHOTRIPSY X3 Surgical History HYSTERECTOMY Surgical History CHOLECYSTECTOMY Surgical History TONSILLECTOMY Surgical History CATARACT SUGERY (BILAT) Surgical History Eyelid Lift Hospitalization History kidney stones/ Infection x1 week stay 1994 Hospitalization History TIA 01/2021 [facility] Other Hisrdwi general Narrative - Reported* Type Description Date [...] week stay 1994 Hospitalization History TIA 01/2021 [facility] Other History general Narrative - Reported* Type [...] week stay 1994 Hospitalization History TIA 01/2021 [facility] Other Hospital course Narrative No data available for this section [facility] Hospital Discharge instructions Additional Instructions If your symptoms return/worsen or you develop any further concerns or symptoms please see your doctor or return to the emergency department immediately.[facility] Work Phone: Hospital Discharge instructions No data available for this section [facility] No data available for this section [facility] Summary Purpose Family History No Family [...] Relationship Condition Age at Onset Recorded Date/T kmuar father Hypertension Unknown Heart disease Unknown mother [...] DATE CREATED AUTHOR AUTHOR'S ORGANIZ ATION 02/23/2022 [facility] DATE CREATED AUTHOR AUTHOR'S ORGANIZ ATION 03/29/2024 [facility] DATE CREATED AUTHOR AUTHOR'S ORGANIZ ATION 05/16/2024 [facility] DATE CREATED AUTHOR AUTHOR'S ORGANIZ ATION 09/04/2024 [facility] EPIC REASON FOR VISIT (unrecogniz ed section and content) Reason Comments Routine 3 Mo Follow-up Reason Comments Medicare Annual Wellness Visit Subsequen t 4 month follow up Care Teams (unrecognized sec tion and content) Team Status: Inactive Member Role Status Dates Sharmaine Wong , Primary Care Provider Active Jazmin Mauro MD Attending Provider Active Team Status: Inactive Member Role Status Dates Sharmaine Wong , DO Primary Care Provider Active NADER Lynn Attending Provider Active Team Status: Inactive Member Role Status Dates Sharmaine Wong , DO Primary Care Provider, Attend ing Provider Active Team Status: Inactive Member Role Status Dates Sharmaine Gómezy , DO Primary Care Provider Active My Alvarado PA-C Attending Provider Active Team Status: Active Member Role Status Dates Sharmaine Gómezy , DO Primary Care Provider Active Team Status: Inactive Member Role Status Dates Sharmaine Gómezy , DO Primary Care Provider Active Delfino Goncalves , DO Emergency Provider Active Team Status: Inactive Member Role Status Dates Sharmaine Gómezy , DO Primary Care Provider Active Christiano Murillo MD Attending Provider Active Team Status: Inactive Member Role Status Dates Sharmaine Gómezy , DO Primary Care Provider Active Scott Sellers MD Attending Provider Active Team Status: Inactive Member Role Status Sharmaine Gómezy , DO Primary Care Provider Active Scott Sellers MD Admit Provider, Attending Provide r Active Team Status: Inactive Member Role Status Sharmaine Gómezy , DO Primary Care Provider Active Zeus Dolan MD Attending Provider Active Cover Remover Relationship Specialty Start Date End Date Sharmaine Wong DO [address] [facility] [address] [place] [address] PCP - [facility] Reach 03/16/23 Sharmaine Wong DO [address] [facility] [address] [place] [address] PCP - General Internal Medicine 12/01/23 Dax De Oliveira MD [address] [place] [address] Referring Physician Ophthalmology 09/20/23 Jazmin Mauro MD [address]00 [place] [address] Referring Physician Urology 09/20/23 Scott Sellers MD [address] [phone] Referring Physician Vascular Surgery 09/20/23 Team Status: Inactive Member Role Status Dates Sharmaine Wong DO Primary Care Provider Active Start: April 09, 2024 End: April 09, 2024 Scott Sellers MD Attending Provider Active S tart: April 09, 2024 End: April 09, 2024 Team Status: Active Member Role Status Dates Sharmaine Wong DO Primary Care Provider Active Start: April 09, 2024 Scott Sellers MD Attending Provider Active S tart: April 09, 2024 Team Status: Active Member Role Status Dates Sharmaine Wong DO Primary Care Provider Active Start: May 04, 2024 Meme Montelongo MD Emergency Provider Active Start: May 04, 2024 Marvin Iglesias DO Admit Provider , Attending Provider Active Start: May 04, 2024 Team Status: Inactive Member Role Status Dates Sharmaine Wong DO Primary Care Provider Active Start: May [...] May 04, 2024 End: May 07, 2024 Cover Remover Relationship Specialty Start Date End Date Sharmaine Wong DO [address] [place] [address] PCP - ACO Reach 03/16/23 Sharmaine Wong DO [address] [place] [address] PCP - General Internal Medicine 12/01/23 Dax De Oliveira MD [address] [facility] [place] [address] Referring Physician Ophthalmology 09/20/23 Jazmin Mauro MD [address] [place] [address] Referring Physician Urology 09/20/23 Scott Sellers MD [address] [phone] Referring Physician Vascular Surgery 09/20/23 Goals (unrecognized section and content) Goals may [...] BE BASED ON THE PRIMARY CLINICAL RECORDS. [employer] provides no warranty or guarantee of the accuracy or completeness of information in this document.
[2024-09-10 08:10] VITALS: BP 129/80; PULSE 58; TEMP 36.3; O2SAT 95
[2024-09-10 09:02] VITALS: BP 125/58; PULSE 68; O2SAT 94
[2024-09-10 09:03] VITALS: BP 146/63; PULSE 58; O2SAT 93
[2024-09-10] MEDS: 0.9 % SODIUM CHLORIDE 10 ML SYRINGE - SALINE FLUSH 2 ML INJ (09:07)
[2024-09-10] MEDS: LIDOCAINE HCL 2% 400 MG/20 ML MDV 3 ML INJ (09:07)
[2024-09-10] MEDS: IOHEXOL 240 MG/ML - 10 ML VIAL 24 MG INJ (09:07)
[2024-09-10] MEDS: BUPIVACAINE HCL 0.25% PF 25 MG/10 ML VIAL 2 ML INJ (09:07)
[2024-09-10] MEDS: METHYLPREDNISOLONE ACETATE 80 MG/ML VIAL INJ (09:08)
--- NOTE | 2024-09-10 10:27 | P.ON_ITS ---
Date of procedure: 09/10/24 Pre-op diagnosis: Lumbar radiculitis Post-op diagnosis: same as pre-op Procedure: Lumbar 4/5 Epidural Steroid Injection Under fluoroscopic guidance Immediate complications none Solution used for injection: Marcaine 0.25% 2mL, 2cc Normal saline, Depo-Medrol 80mg Omnipaque 3 mL Anesthesia local 2% lidocaine up to 4ml Timeout process compliant After informed consent obtained. Patient brought to the procedure room placed in the prone position. Skin overlying the area was prepped and draped in a sterile fashion using betadine. 25 gauge needle used to raise a skin wheel with local anesthetic over the target area identified under fluoroscopy. A 17 gauge Touhy n eedle Was inserted over the anesthetized area and directed towards the inter- space under fluoroscopic guidance. Epidural space was identified with loss of resistance technique to air. Needle Tip placement confirmed with injection of contrast solution in AP and Lateral views. Steroid solution was then injected. Anesthesia: Local Surgeon: Tab Olsen Condition: stable
== END 2024-09-10 09:12 | disposition home or self-care (01) ==
LOC: SURGOUT 07:41
PROVIDERS: PCP Internal Medicine; Visit Provider Anesthesiology Pain Medicine
DX: M54.16 Radiculopathy, lumbar region (principal)
CPT/HCPCS: 62323; J0665; J1010; Q9966

== ENCOUNTER 2024-09-26 09:23 | Outpatient (OUT) | payer MEDICARE, OTHER, SELFPAY ==
--- NOTE | 2024-09-26 09:49 | P.CN_ITS ---
Consult Note: HPI Data of Consult Patient: known to practice within the last 3 years Requesting Physician: Brittany Hughes NP Primary Care Provider: KALIE SANCHES Consult Narrative Reason for consult: f/u Narrative: Gwen Alfaro a pleasant 74 year old female presents for evaluation and management of chronic low back pain and left knee pain. Pain 0/10 today increasing to 2/10 at the worst. Pt noticing significant benefit from L4-5 OLIVIA< 100% improvement ongoing per pt. prior knee injection providing >50% improvement ongoing. Patient thrilled with her outcomes, these treatments were a miracle . cc:: CC: Brittany Hughes NP Review of Systems ROS Status of ROS 10 or more systems reviewed and unremark able except as noted in history and below Musculoskeletal Reports: back pain; Denies: joint pain Meds Home Medications and Allergies Home Medications ?Medication ?Instructions ?Recorded ?Confirmed ?Type amlodipine 5 mg tablet 5 mg PO DAILY 07/23/24 09/10/24 History aspirin 81 mg tablet,delayed 81 mg PO DAILY 07/23/24 09/10/24 History release atorvastatin 80 mg tablet 80 mg PO DAILY 07/23/24 09/10/24 History baclofen 10 mg tablet 10 mg PO DAILY 07/23/24 09/10/24 History escitalopram oxalate 10 mg tablet 10 mg PO DAILY 07/23/24 09/10/24 History estradiol 0.01% (0.1 mg/gram) 1 g vaginal DAILY 07/23/24 09/10/24 History vaginal cream metoprolol succinate 100 mg 100 mg PO DAILY 07/23/24 09/10/24 History capsule sprinkle, ext. release 24 hr sodium citrate-citric acid 490 5 ml PO DAILY 07/23/24 09/10/24 History mg-640 mg/5 mL oral solution (Oracit) Allergies Allergy/AdvReac Type Severity Reaction Status Date / Time No Known Drug Allergies Allergy Verified 09/10/24 08:09 Exam Constitutional Documenting provider has reviewed patient's vital signs: yes Common normals: no apparent distress, oriented x3, healthy appearing, alert and well nourished General appearance: cooperative HENSD Common normals: normocephalic, hearing grossly normal bilaterally and moist oral mucous membranes Head and scalp: normocephalic Eye Common normals: PERRL Pupil: PERRL Neck & C-Spine Common normals: full ROM General: normal visual inspection Chest Common normals: inspection of chest normal Respiratory Common normals: normal respiratory effort, no retractions and no use of accessory muscles Back & Pelvis Lumbar spine/lower back: ROM limited, pain with ROM, lumbar spinal tenderness and straight leg raise negative bilaterally Sacroiliac joints: SI joint(s) abnormal Other: mildly positive facet loading tenderness over L3-s1 Neuro Common normals: oriented x3, CN's II-XII intact bilaterally, moves all extremities, no focal motor deficits, no sensory deficits noted and deep tendon reflexes 2+ bilaterally Sensorium/orientation: alert Motor exam: strength 5/5 throughout and no movement abnormalities noted Psych Common normals: mental status grossly normal, thought process normal, cooperative, affect normal, speech normal and activity/motor behavior normal Speech: normal speech Thought process: normal thought process Results Additional Findings Additional findings: If on a controlled substance or opioids, I have checked an [place]AR[place] report on this patient and there are no aberrancies noted in the prescribing history.??If on a controlled substance or opioid a drug screen was completed and reviewed within the last year, and if there has not been a drug screen completed we ordered one today to monitor higher risk, state monitored pain medication use. As part of providing excellent, safe, comprehensive care, the following was completed at our patient's visit: 1. A medication reconciliation and review to ensure accurate knowledge of current/active medications, including asking our patients to inform us about any [id number]-[id number] medications or herbal remedies/nutritional supplements/alternative remedies. 2. A review to specifically ensure our patients have had annual screening for screening for depression, screening for tobacco use, and screening for unhealthy alcohol use. For concerning screenings had a discussion with the patient, provided patient education, and recommended follow-up with primary care provider when appropriate. If patient noted with a risk of falling, they received education on strength, gait, and balance training to prevent future risk of falling. Assessment and Plan Assessment and Plan (1) Lumbar radiculopathy: (2) Lumbar spondylosis: (3) Osteoarthritis of left knee: Plan pain very well controlled at this time continue baclofen 2.5-10mg daily PRN pain/spasms continue HEP as tolerated f/u PRN
== END 2024-09-26 09:24 | disposition home or self-care (01) ==
LOC: PM 09:23
PROVIDERS: PCP Internal Medicine; Visit Provider Nurse Practitioner
DX: M54.16 Radiculopathy, lumbar region (principal); M47.816 Spondylosis without myelopathy or radiculopathy, lumbar region; M17.12 Unilateral primary osteoarthritis, left knee
CPT/HCPCS: G0463

== ENCOUNTER 2025-05-22 09:37 | Outpatient (OUT) | payer MEDICARE, OTHER, SELFPAY ==
--- OUTSIDE RECORDS SUMMARY | 2025-05-22 09:40 | XMS_ITS | Encounter Summary ---
Author Organization [facility] Address [address] [facility] [place] [address] Care Team Providers Care Pneudraulic Systems Mechanic Name Role Phone Sharmaine Fletcher DO Unavailable [phone] Dax De Oliveira MD Unavailable [phone] Teddy Antonio MD Unavailable [phone] Scott Sellers MD Unavailable [phone] Sharmaine Fletcher DO Primary Care Provider Encounter Details Date Type Department Care Team (Late st Contact Info) Description 06/05/2023 Orders Only [facility] [address] [facility] [address] [place] [phone] Charito Carranza, BATH SOLUTION MAKER [address] [place] [address] Social History Tobacco Use Types Packs/Day Years Used Date Smoking Tobacco: Never Smokeless Tobacco: Never Alcohol Use Standard Drinks/Week Comments Never 0 (1 standard drink = 0.6 oz pure alcohol) caffeine: 1 cup of coffee a day Comments Unknown Sex and Gender Information Value Date Recorded Sex Assigned at Not on file Legal Sex Female 6:37 PM EDT Gender Identity Not on file Sexual Orientation Not on file COVID-19 Exposure Response Date Recorded In the last 10 days, have yo u been in contact with someone who was confirmed or suspected to have Coronavirus/COVID-19? No / Unsure 06/08/2023 10:44 AM EDT documented as of this encounter Plan of Treatment Upcoming Encounters Date Type Department Care Team (Late st Contact Info) Description 09/02/2025 10:15 AM EST Office Visit [facility] [address] [place] [address] Sharmaine Fletcher DO [address] [place] [address] documented as of this encounter Visit Diagnoses Not on filedocumented in this encounter Care Teams Pneudraulic Systems Mechanic Relationship Specialty Start Date End Date Sharmaine Fletcher DO [address] [place] [address] PCP - ACO Reach 03/16/23 Sharmaine Fletcher DO [address] [place] [address] PCP - General Internal Medicine 12/01/23 Dax De Oliveira MD [address] [place] [address] Referring Physician Ophthalmology 09/20/23 Teddy Antonio MD [address] [place] [address] Referring Physician Urology 09/20/23 Scott Sellers MD [address] [place] [address] Referring Physician Vascular Surgery 09/20/23 documented as of this encounter
--- OUTSIDE RECORDS SUMMARY | 2025-05-22 09:40 | XMS_ITS ---
Author Organization [facility] Address [address] [facility] [place] [address] Care Team Providers Care Television Production Clerk Name Role Phone Sharmaine Fletcher DO Unavailable [phone] Dax De Oliveira MD Unavailable [phone] Teddy Antonio MD Unavailable [phone] Scott Sellers MD Unavailable [phone] Sharmaine Fletcher DO Primary Care Provider Chronic Care Management (CCM) Status:Enrolled (Active) Start date:03/09/2023 Enrollment date:03/09/2023 Overview 12/19/23, 2:41 PM - Isabelle Ferrara MA- Patient gives verbal consent to be enrolled in CCM Program and understands there could be a bill for this service. Case Team Name Relationship Phone Isabelle Ferrara MA(Responsible Staff) Clinical Ad vocate [phone] Continued Care and Services Coordination
--- OUTSIDE RECORDS SUMMARY | 2025-05-22 09:40 | XMS_ITS | Encounter Summary ---
Author Organization [facility] Address [address] [facility] [place] [address] Care Team Providers Care Automotive Heavy Mechanic Name Role Phone Sharmaine Fletcher DO Unavailable [phone] Dax De Oliveira MD Unavailable [phone] Teddy Antonio MD Unavailable [phone] Scott Sellers MD Unavailable [phone] Sharmaine Fletcher DO Primary Care Provider Encounter Details Date Type Department Care Team (Late st Contact Info) Description 11/08/2024 External Result Encounter [facility] External Department Unsolicited Ambrosio Corral, DPM [address] [address] Social History Tobacco Use Types Packs/Day Years Used Date Smoking Tobacco: Never Smokeless Tobacco: Never Alcohol Use Standard Drinks/Week Comments Never 0 (1 standard drink = 0.6 oz pure alcohol) caffeine: 1 cup of coffee a day PHQ-2 Answer Date Recorded Patient Health Questionnaire-2 Score 0 08/30/2024 Comments Unknown Sex and Gender Information Value Date Recorded Sex Assigned at Not on file Legal Sex Female 6:37 PM EDT Gender Identity Not on file Sexual Orientation Not on file documented as of this encounter Plan of Treatment Upcoming Encounters Date Type Department Care Team (Late Contact Info) Description 09/02/2025 10:15 AM EST Office Visit [facility] [address] [place] [address] Sharmaine Fletcher, DO [address] [place] [address] documented as of this encounter Procedures Procedure Name Priority Date/Time Associated Diagnosis Comments ECG 12-LEAD 11/08/2024 2:18 PM EST documented in this encounter Results * ECG 12 lead (11/08/2024 2:18 PM EST) 11/08/2024 2:18 PM EST Narrative [facility] 11/09/2024 12:51 PM EST [facility] Main [address] [address] Electrocardiograph Report Signed Patient: Gwen Alfaro MR#: [id number] : 1950 Acct:[id number] Age/Sex: 74 / F ADM Date: 11/08/24 Loc: Room: Type: [facility] Attending Dr: Ambrosio Corral DPM Ordering Provider: Ambrosio Corral DPM Date of Service: 11/08/24/ ECG/ECG 12 lead ECG: pst Copies to: Test Reason : Blood Pressure : */* mmHG Vent. Rate : 62 BPM Atrial Rate : 62 BPM P-R Int : 166 ms QRS Dur : 68 ms QT Int : 406 ms P-R-T Axes : 49 61 66 degrees QTcB Int : 412 ms Normal sinus rhythm Nonspecific T wave abnormality Abnormal ECG When compared with ECG of 04-May-2024 15:57, Nonspecific T wave abnormality now evident in Anterior leads Confirmed by LURDES MCCRACKEN MD, FACC ([id number]) on 11/09/2024 12:50:45 PM Referred By: Electronically Signed By: LURDES MCCRACKEN MD FACC Transcribed By: MUS Signed By Lurdes Mccracken MD, FACC 11/09/24 1250 Procedure Note Lurdes Mccracken MD - 11/09/2024 [facility] Main [address] [address] Electrocardiograph Report Signed Patient: Gwen Alfaro CMR#: [id number] : 2Acct:[id number] Age/Sex: 74 / FADM Date: 11/08/24 Loc: Room:Type: [facility] Attending Dr: Ambrosio Corral DPM Ordering Provider: Ambrosio Corral DPM Date of Service: 11/08/24/ ECG/ECG 12 lead ECG: pst Copies to: Test Reason : Blood Pressure : */* mmHG Vent. Rate : 62 BPM Atrial Rate : 62 BPM P-R Int : 166 ms QRS Dur : 68 ms QT Int : 406 ms P-R-T Axes : 49 61 66 degrees QTcB Int : 412 ms Normal sinus rhythm Nonspecific T wave abnormality Abnormal ECG When compared with ECG of 04-May-2024 15:57, Nonspecific T wave abnormality now evident in Anterior leads Confirmed by SIMRAN URBINA [facility], LURDES ([id number]) on 11/09/2024 12:50:45 PM Referred By: Electronically Signed By: LURDES MCCRACKEN MD [facility] Transcribed By: MUS Signed By Lurdes Mccracken MD, FACC 11/09/24 1250 us Ambrosio Corral DPM ECG ORDERABLES Final Resul t [address] [address], documented in this encounter Visit Diagnoses Not on filedocumented in this encounter Care Teams Automotive Heavy Mechanic Relationship Specialty Start Date End Date Sharmaine Fletcher DO [address] [place] [address] PCP - ACO Reach 03/16/23 Sharmaine Fletcher DO [address] [place] [address] PCP - General Internal Medicine 12/01/23 Dax De Oliveira MD [address] [place] [address] Referring Physician Ophthalmology 09/20/23 Teddy Antonio MD [address] [place] [address] Referring Physician Urology 09/20/23 Scott Sellers MD [address] [place] [address] Referring Physician Vascular Surgery 09/20/23 documented as of this encounter
--- OUTSIDE RECORDS SUMMARY | 2025-05-22 09:40 | XMS_ITS | Encounter Summary ---
Author Organization [facility] Address [address] [facility] [place] [address] Care Team Providers Care Corporate Strategy Intern Name Role Phone Sharmaine Fletcher DO Unavailable [phone] Dax De Olievira MD Unavailable [phone] Teddy Antonio MD Unavailable [phone] Scott Sellers MD Unavailable [phone] Sharmaine Fletcher DO Primary Care Provider Encounter Details Date Type Department Care Team (Late st Contact Info) Description 08/05/2024 Orders Only [facility] [address] [facility] [address] [place] [phone] A, Unknown Practice [address] [place], [place] [id number] Social History Tobacco Use Types Packs/Day Years Used Date Smoking Tobacco: Never Smokeless Tobacco: Never Alcohol Use Standard Drinks/Week Comments Never 0 (1 standard drink = 0.6 oz pure alcohol) caffeine: 1 cup of coffee a day PHQ-2 Answer Date Recorded Patient Health Questionnaire-2 Score 0 09/20/2023 Comments Unknown Sex and Gender Information Value Date Recorded Sex Assigned at Not on file Legal Sex Female 6:37 PM EDT Gender Identity Not on file Sexual Orientation Not on file documented as of this encounter Plan of Treatment Upcoming Encounters Date Type Department Care Team (Late st Contact Info) Description 09/02/2025 10:15 AM EST Office Visit [facility] [place] [facility] [address] [place] [address] Sharmaine Fletcher DO [address] [place] [address] documented as of this encounter Procedures Procedure Name Priority Date/Time Associated Diagnosis Comments MR LUMBAR SPINE WO CONTRAST Routine 08/01/2024 10:26 AM EDT documented in this encounter Results * MR lumbar spine wo contrast (08/01/2024 10:26 AM EDT) Anatomical Region Laterality Modality Spine, L-spine Magnetic Resonan ce us Unknown Practice A IMG MRI PROCEDURES Final Resu lt documented in this encounter Visit Diagnoses Not on filedocumented in this encounter Care Teams Corporate Strategy Intern Relationship Specialty Start Date End Date Sharmaine Fletcher DO [address] [place] [address] PCP - ACO Reach 03/16/23 Sharmaine Fletcher DO [address] [place] [address] PCP - General Internal Medicine 12/01/23 Dax De Oliveira MD [address] [facility] [place] [address] Referring Physician Ophthalmology 09/20/23 Teddy Antonio MD [address] [place] [address] Referring Physician Urology 09/20/23 Scott Sellers MD [address] [place] [address] Referring Physician Vascular Surgery 09/20/23 documented as of this encounter
--- OUTSIDE RECORDS SUMMARY | 2025-05-22 09:40 | XMS_ITS | Encounter Summary ---
Author Organization [facility] Address [address] [place] [address] Phone Care Team Providers Care Smoke Inspector Name Role Phone Unavailable Primary Care Provider Unavailabl e Encounter Details Date Type Department Care Team (Late st Contact Info) Description 05/06/2024 Scanned Document [facility] [address] [place] [address] Scanning, Generic Provider Social History Tobacco Use Types Packs/Day Years Used Date Smoking Tobacco: Never Assessed Comments Unknown Sex and Gender Information Value Date Recorded Sex Assigned at Not on file Legal Sex Female 10:09 AM EST Gender Identity Not on file Sexual Orientation Not on file documented as of this encounter Plan of Treatment Not on file documented as of this encounter Procedures Procedure Name Priority Date/Time Associated Diagnosis Comments ECHOCARDIOGRAM 05/06/2024 documented in this encounter Results * Echocardiogram (05/06/2024) Narrative 05/06/2024 Ordered by an unspecified provider. us Generic Provider Scanning CV ECHO PROCEDURES Fin al Result documented in this encounter Visit Diagnoses Not on filedocumented in this encounter
--- OUTSIDE RECORDS SUMMARY | 2025-05-22 09:40 | XMS_ITS | Encounter Summary ---
Author Organization [facility] Address [address] [facility] [place] [address] Care Team Providers Care Toe Former Stitchdowns Name Role Phone Sharmaine Fletcher DO Unavailable [phone] Dax De Oliveira MD Unavailable [phone] Teddy Antonio MD Unavailable [phone] Scott Sellers MD Unavailable [phone] Sharmaine Fletcher DO Primary Care Provider Encounter Details Date Type Department Care Team (Late st Contact Info) Description 07/24/2024 Orders Only [facility] [address] [facility] [address] [place] [phone] A, Unknown Practice [address] [place], [place] [address] Social History Tobacco Use Types Packs/Day Years [...] Visit [facility] [place] [facility] [address] [facility] [address] [place] [address] Sharmaine Fletcher DO [address] [facility] [address] [place] [address] documented as of this encounter Procedures Procedure Name Priority Date/Time Associated Diagnosis Comments XR LUMBAR SPINE 2-3 VIEWS Routine 07/23/2024 8:21 AM EDT documented in this encounter Results * XR lumbar spine 2 or 3 views (07/23/2024 8:21 AM EDT) Anatomical Region Laterality Modality Spine, L-spine Radiographic Ada ging us Unknown Practice A IMG XR PROCEDURES Final Resul t documented in this encounter Visit Diagnoses Not on filedocumented in this encounter Care Teams Toe Former Stitchdowns Relationship Specialty Start Date End Date Sharmaine Fletcher DO [address] [facility] [address] [place] [address] PCP - ACO Reach 03/16/23 Sharmaine Fletcher DO [address] [facility] [address] [place] [address] PCP - General Internal Medicine 12/01/23 Dax De Oliveira MD [address] [place] [address] Referring Physician Ophthalmology 09/20/23 Teddy Antonio MD [address] [place] [address] Referring Physician Urology 09/20/23 Scott Sellers MD [address] [place] [address] Referring Physician Vascular Surgery 09/20/23 documented as of this encounter
--- OUTSIDE RECORDS SUMMARY | 2025-05-22 09:40 | XMS_ITS | Encounter Summary ---
Author Organization [facility] Address [address] [facility] [place] [address] Care Team Providers Care Swimming Pool Serviceperson Name Role Phone Sharmaine Fletcher DO Unavailable [phone] Dax De Oliveira MD Unavailable [phone] Teddy Antonio MD Unavailable [phone] Scott Sellers MD Unavailable [phone] Sharmaine Fletcher DO Primary Care Provider Encounter Details Date Type Department Care Team (Late st Contact Info) Description 03/29/2023 Orders Only [facility] [address] [address] [place] [address] Provider, MD Chriss [address] [place] [address] Social History Tobacco Use Types Packs/Day Years [...] Description 09/02/2025 10:15 AM EST Office Visit [facility] [address] [facility] [place] [address] Sharmaine Fletcher DO [address] [place] [address] documented as of this encounter Procedures Procedure Name Priority Date/Time Associated Diagnosis Comments SCANNED LABS Routine 03/28/2023 10:05 AM EDT documented in this encounter Results * SCANNED LABS (03/28/2023 10:05 AM EDT) us Historical Provider LAB CHG PERFORMABLES Edit ed Result - Final documented in this encounter Visit Diagnoses Not on filedocumented in this encounter Care Teams Swimming Pool Serviceperson Relationship Specialty Start Date End Date Sharmaine Fletcher DO [address] [facility] [address] [facility] [address] [place] [address] PCP - ACO Reach 03/16/23 Sharmaine Fletcher DO [address] [facility] [address] [place] [address] PCP - General Internal Medicine 12/01/23 Dax De Oliveira MD [address] [place] [address] Referring Physician Ophthalmology 09/20/23 Teddy Antonio MD [address] [place] [address] Referring Physician Urology 09/20/23 Scott Sellers MD [address] [place] [address] Referring Physician Vascular Surgery 09/20/23 documented as of this encounter
--- OUTSIDE RECORDS SUMMARY | 2025-05-22 09:40 | XMS_ITS | Encounter Summary ---
Author Organization [facility] Address [address] [facility] [place] [address] Care Team Providers Care Cattle And Wheat Farmer Name Role Phone Sharmaine Fletcher DO Unavailable [phone] Dax De Oliveira MD Unavailable [phone] Teddy Antonio MD Unavailable Scott Sellers MD Unavailable [phone] Sharmaine Fletcher DO Primary Care Provider Encounter Details Date Type Department Care Team (Late st Contact Info) Description 09/20/2023 Orders Only [facility] [address] [facility] [address] [place] [phone] A, Unknown Practice [address] [place], [place] [id number] Social History Tobacco Use Types Packs/Day Years [...] on file documented as of this encounter Functional Status * Over the past 2 weeks, how often have you been bothered by any of the following problems? Question Answer Date of Assessment Author Little interest or pleasure in doing things Not at all 09/20/2023 11:00 AM EST Carolina Newman L PN Feeling down, depressed, or hopeless Not at all 09/20/2023 11:00 AM EST Carolina Newman L PN Patient Health Questionnaire -2 Score 0 09/20/2023 11:00 AM EST Carolina Newman L PN documented as of this encounter Plan of Treatment Upcoming Encounters Date Type Department Care Team (Late st Contact Info) Description 09/02/2025 10:15 AM EST Office Visit [facility] [address] [facility] [address] [place] [address] Sharmaine Fletcher DO [address] [facility] 230 [place] [address] documented as of this encounter Procedures Procedure Name Priority Date/Time Associated Diagnosis Comments DIABETES EYE EXAM Routine 10/26/2022 4:12 PM EST documented in this encounter Results * Diabetes Eye Exam (10/26/2022 4:12 PM EST) us Unknown Practice A HEALTH MAINTENANCE Final Resu lt documented in this encounter Visit Diagnoses Not on filedocumented in this encounter Care Teams Cattle And Wheat Farmer Relationship Specialty Start Date End Date Sharmaine Fletcher DO [address] [facility] [address] [place] [address] PCP - ACO Reach 03/16/23 Sharmaine Fletcher DO [address] [facility] 230 [place] [address] PCP - General Internal Medicine 12/01/23 Dax De Oliveira MD [address] [place] [address] Referring Physician Ophthalmology 09/20/23 Teddy Antonio MD [address] [place] [address] Referring Physician Urology 09/20/23 Scott Sellers MD [address] [place] [address] Referring Physician Vascular Surgery 09/20/23 documented as of this encounter
--- OUTSIDE RECORDS SUMMARY | 2025-05-22 09:40 | XMS_ITS | Encounter Summary ---
Author Organization [facility] Address [address] [facility] [place] [address] Care Team Providers Care Motor Racer Name Role Phone Sharmaine Fletcher DO Unavailable [phone] Dax De Oliveira MD Unavailable [phone] Teddy Antonio MD Unavailable [phone] Scott Sellers MD Unavailable [phone] Sharmaine Fletcher DO Primary Care Provider Reason for Visit * Reason Onset Date Comments Med Refill 05/08/2025 Encounter Details Date Type Department Care Team (Late Contact Info) Description 05/08/2025 Refill [facility] [address] [facility] 230 [place] [address] Candy Lincoln LPN Depression with anxiety; Essential hypertension Social History Tobacco Use Types Packs/Day Years [...] [address] [place] [phone] Sharmaine Fletcher DO [address] [place] [address] documented as of this encounter Visit Diagnoses Diagnosis Depression with anxiety Dysthymic disorder Essential hypertension Unspecified essential hypertension documented in this encounter Care Teams Motor Racer Relationship Specialty Start Date End Date Sharmaine Fletcher DO [address] [place] [address] PCP - ACO Reach 03/16/23 Sharmaine Fletcher DO [address] [place] [address] PCP - General Internal Medicine 12/01/23 Dax De Oliveira MD [address] [facility] [place] [address] Referring Physician Ophthalmology 09/20/23 Teddy Antonio MD [address] [place] [address] Referring Physician Urology 09/20/23 Scott Sellers MD [address] [place] [address] Referring Physician Vascular Surgery 09/20/23 documented as of this encounter
--- OUTSIDE RECORDS SUMMARY | 2025-05-22 09:40 | XMS_ITS | Encounter Summary ---
Author Organization [facility] Address [address] [facility] [place] [address] Care Team Providers Care Grinding Mill Operator Name Role Phone Sharmaine Fletcher DO Unavailable [phone] Dax De Oliveira MD Unavailable [phone] Teddy Antonio MD Unavailable [phone] Scott Sellers MD Unavailable [phone] Sharmaine Fletcher DO Primary Care Provider Encounter Details Date Type Department Care Team (Late st Contact Info) Description 05/08/2024 Orders Only [facility] [address] [facility] [address] [place] [phone] A, Unknown Practice [address] [place], [place] [id number] Social History Tobacco Use Types Packs/Day Years [...] [address] [place] [address] Sharmaine Fletcher DO [address] [place] [address] documented as of this encounter Procedures Procedure Name Priority Date/Time Associated Diagnosis Comments TRANSTHORACIC ECHO (TTE) COMPLETE Routine 05/08/2024 2:08 PM EDT documented in this encounter Results * Transthoracic echo (TTE) complete (05/08/2024 2:08 PM EDT) Anatomical Region Laterality Modality Heart Ultrasound us Unknown Practice A CV ECHO PROCEDURES Final Resu lt documented in this encounter Visit Diagnoses Not on filedocumented in this encounter Care Teams Grinding Mill Operator Relationship Specialty Start Date End Date Sharmaine Fletcher DO [address] [place] [address] PCP - ACO Reach 03/16/23 Sharmaine Fletcher DO [address] [place] [address] PCP - General Internal Medicine 12/01/23 Dax De Oliveira MD [address] [facility] [place] [address] Referring Physician Ophthalmology 09/20/23 Teddy Antonio MD [address] [place] [place] [address] Referring Physician Urology 09/20/23 Scott Sellers MD [address] [place] [address] Referring Physician Vascular Surgery 09/20/23 documented as of this encounter
--- OUTSIDE RECORDS SUMMARY | 2025-05-22 09:40 | XMS_ITS | Encounter Summary ---
Author Organization [facility] Address [address] [facility] [place] [address] Care Team Providers Care Multi Slide Machine Tender Name Role Phone Sharmaine Fletcher DO Unavailable [phone] Dax De Oliveira MD Unavailable [phone] Teddy Antonio MD Unavailable [phone] Scott Sellers MD Unavailable [phone] Sharmaine Fletcher DO Primary Care Provider Encounter Details Date Type Department Care Team (Late st Contact Info) Description 08/28/2024 Orders Only [facility] [address] [facility] [address] [place] [phone] A, Unknown Practice [address] [place], [place] [id number] Social History Tobacco Use Types Packs/Day Years [...] pleasure in doing things Not at all 08/30/2024 9:00 AM EST Carolina Newman LP N Feeling down, depressed, or hopeless Not at all 08/30/2024 9:00 AM EST Carolina Newman LP N Patient Health Questionnaire -2 Score 0 08/30/2024 9:00 AM EST Carolina Newman LP N documented as of this encounter Plan of Treatment Upcoming Encounters Date Type Department Care Team (Late st Contact Info) Description 09/02/2025 10:15 AM EST Office Visit [facility] [place] [facility] [address] [facility] 230 [place] [address] Sharmaine Fletcher DO [address] [facility] 230 [place] [address] documented as of this encounter Procedures Procedure Name Priority Date/Time Associated Diagnosis Comments XR KNEE 4+ VIEWS RIGHT Routine 08/27/2024 9:14 AM EST documented in this encounter Results * XR knee 4+ views right (08/27/2024 9:14 AM EST) Anatomical Region Laterality Modality Lower Extremities, Knee Right Radiogra phic Imaging us Unknown Practice A IMG XR PROCEDURES Final Resul t documented in this encounter Visit Diagnoses Not on filedocumented in this encounter Care Teams Multi Slide Machine Tender Relationship Specialty Start Date End Date Sharmaine Fletcher DO [address] [facility] [address] [place] [address] PCP - ACO Reach 03/16/23 Sharmaine Fletcher DO [address] [facility] [address] [place] [address] PCP - General Internal Medicine 12/01/23 Dax De Oliveira MD [address] [place] [address] Referring Physician Ophthalmology 09/20/23 Teddy Antonio MD [address] [place] [address] Referring Physician Urology 09/20/23 Scott Sellers MD [address] [place] [address] Referring Physician Vascular Surgery 09/20/23 documented as of this encounter
--- OUTSIDE RECORDS SUMMARY | 2025-05-22 09:40 | XMS_ITS | Encounter Summary ---
Author Organization [facility] Address [address] [facility] [place] [address] Care Team Providers Care Giver Name Role Phone Sharmaine Fletcher DO Unavailable [phone] Dax De Oliveira MD Unavailable [phone] Teddy Antonio MD Unavailable [phone] Scott Sellers MD Unavailable [phone] Sharmaine Fletcher DO Primary Care Provider Encounter Details Date Type Department Care Team (Late st Contact Info) Description 05/13/[address] [facility] [address] [place] [phone] Barb Sheldon RN [address] [facility] 230 [place] [address] Social History Tobacco Use Types Packs/Day Years [...] on file documented as of this encounter Progress Notes * Barb Sheldon RN - 05/13/2025 12:53 PM EDT Flowsheet Row Patient Outreach from 05[facility]13/2025 in [facility] with Barb Sheldon RN Hospital Information ED, Hospital or Detention Facility Discharge? ED Patient has been contacted within 2 days of being seen in the ED No Have two attempts been made, within 2 days of being seen in the ED, to contact the patient? Yes Diagnosis low back pain, acute hip pain Discharge Date 05/09/[address] [facility] Engagement Admission Date 05/09/25 Medications Discharge medications reviewed and reconciled from hospital? No Prescription Comments prednisone 40 mg X 5 days, lidocaine 5% one patch daily Appointments Self Management Patient Teaching Wrap Up Wrap Up Additional Comments Patient presented to ER with left lower back and hip pain that started today. ER performed left hip xray - degenerative changes noted to lumbar spine, sacroiliac joints , and hips bilateral. Xray lumbar spine - similiar dextro convex curvature, worsening multilevel degenerative changes noted greatest L5-S1. Patient discharged with scripts for steriod and lidocaine patch. <May 13, 2025, 12:54 - Barb Sheldon RN> Message left for return call. <May 14, 2025, 11:25 - Barb Sheldon RN> Partial ER IGNACIA completed. Patient unable to be reached. documented in this encounter Plan of Treatment Upcoming Encounters Date Type Department Care Team (Late st Contact Info) Description 09/02/2025 10:15 AM EST Office Visit [facility] [place] [facility] [address] [place] [address] Sharmaine Fletcher DO [address] [place] [address] documented as of this encounter Visit Diagnoses Diagnosis Essential hypertension- Primary Unspecified essential hypertension Stage 3a chronic kidney disease ([facility]) documented in this encounter Care Teams Giver Relationship Specialty Start Date End Date Sharmaine Fletcher DO [address] [place] [address] PCP - ACO Reach 03/16/23 Sharmaine Fletcher DO [address] [place] [address] PCP - General Internal Medicine 12/01/23 Dax De Oliveira MD [address] [place] [address] Referring Physician Ophthalmology 09/20/23 Teddy Antonio MD [address] [place] [address] Referring Physician Urology 09/20/23 Scott Sellers MD [address] [place] [address] Referring Physician Vascular Surgery 09/20/23 documented as of this encounter
--- OUTSIDE RECORDS SUMMARY | 2025-05-22 09:40 | XMS_ITS ---
Author Organization [facility] Address [address] [facility] [place] [address] Care Team Providers Care Button Facing Machine Operator Name Role Phone Sharmaine Fletcher DO Unavailable [phone] Dax De Oliveira MD Unavailable [phone] Teddy Antonio MD Unavailable Scott Sellers MD Unavailable [phone] Sharmaine Fletcher DO Primary Care Provider Emergency Department Transitional Care Management (TCM) Status:Closed (Closed) Start date:05/09/2025 Enrollment date:05/12/2025 Enrollment reason:Identified using hospital discharge data End date:05/14/2025 Close reason:Actively enrolled in CCM Overview Discharged from [facility] ER on 05/12. Please contact within 2 days of discharge for ER IGNACIA and schedule a follow-up appointment if needed. Continued Care and Services Coordination
--- OUTSIDE RECORDS SUMMARY | 2025-05-22 09:40 | XMS_ITS | Encounter Summary ---
Author Organization [facility] Address [address] [place] [address] Care Team Providers Care Auto Clutch Rebuilder Name Role Phone hSarmaine Fletcher DO Unavailable [phone] Dax De Oliveira MD Unavailable [phone] Teddy Antonio MD Unavailable [phone] Scott Sellers MD Unavailable [phone] Sharmaine Fletcher DO Primary Care Provider Encounter Details Date Type Department Care Team ([facility] Contact Info) Description 10/28/2024 Orders Only [facility] [address] [facility] [address] [place] [phone] Unallocated, Noms MD Ben [address] [place], [place] [id number] Social History Tobacco Use Types Packs/Day Years [...] Visit [facility] [place] [facility] [address] [facility] 230 [place] [address] Sharmaine Fletcher DO [address] [facility] 230 [place] [address] documented as of this encounter Procedures Procedure Name Priority Date/Time Associated Diagnosis Comments DIABETIC RETINOPATHY SCREENING - OU - BOTH EYES Routine 10/28/2024 11:30 AM EST documented in this encounter Results * (ABNORMAL) Diabetic Retinopathy Screening - OU - Both Eyes (10/28/2024 11:30 AM EST) Anatomical Region Laterality Modality Head Other us Noms Provider Unallocated OPHTH PHOTOGRAPHY F inal Result documented in this encounter Visit Diagnoses Not on filedocumented in this encounter Care Teams Auto Clutch Rebuilder Relationship Specialty Start Date End Date Sharmaine Fletcher DO [address] [facility] 230 [place] [address] PCP - ACO Reach 03/16/23 Sharmaine Fletcher DO [address] [facility] [address] [place] [address] PCP - General Internal Medicine 12/01/23 Dax De Oliveira MD [address] [place] [address] Referring Physician Ophthalmology 09/20/23 Teddy Antonio MD [address] [place] [address] Referring Physician Urology 09/20/23 Scott Sellers MD [address] [place] [address] Referring Physician Vascular Surgery 09/20/23 documented as of this encounter
--- OUTSIDE RECORDS SUMMARY | 2025-05-22 09:40 | XMS_ITS | Clinical Summary ---
Author Organization [facility] Address [address] [place] [address] Phone Care Team Providers Care Labor Custodian Name Role Phone Unavailable Primary Care Provider Unavailabl e Social History Tobacco Use Types Packs/Day Years Used Date Smoking Tobacco: Never Assessed Comments Unknown Sex and Gender Information Value Date Recorded Sex Assigned at Not on file Legal Sex Female 10:09 AM EST Gender Identity Not on file Sexual Orientation Not on file Plan of Treatment Health Maintenance Due Date Last Done Comments CT Colonography 1952 Colonoscopy 1950 Colorectal Cancer Screening 1952 FIT-DNA (Cologuard) 1950 FIT 1952 Lipid Panel 1950 Medicare Annual Wellness Vis it (AWV) 1950 Sigmoidoscopy 1952 MMR Vaccines (1 of 1 - Stand danika series) 01/23/1953 Hepatitis C Screening 01/23/1970 DTaP/Tdap/Td Vaccines (1 - Tdap) 01/23/1974 Mammogram 1992 Pneumococcal Vaccine (1 of 1 - PCV) 01/23/2002 Zoster Vaccines (1 of 2) 01/23/2002 Bone Density Scan 01/23/2017 COVID-19 Vaccine (1 - 2023-2 5 season) 2024 Influenza Vaccine (#1) 2025 RSV High Risk: (Elderly (60+ ) or Population) (1 - 1-dose 75+ series) 01/23/2027 HIB Vaccines Aged Out No longer eligi ble based on patient's age to complete this topic HPV Vaccines Aged Out No longer eligi ble based on patient's age to complete this topic Hepatitis A Vaccines Aged Out No long er eligible based on patient's age to complete this topic Hepatitis B Vaccines Aged Out No long er eligible based on patient's age to complete this topic IPV Vaccines Aged Out No longer eligi ble based on patient's age to complete this topic Meningococcal Vaccine Aged Out No britney pradeep eligible based on patient's age to complete this topic Rotavirus Vaccines Aged Out No longer eligible based on patient's age to complete this topic Insurance MEDICARE PART A AND B
--- OUTSIDE RECORDS SUMMARY | 2025-05-22 09:40 | XMS_ITS | Encounter Summary ---
Author Organization [facility] Address [address] [facility] [place] [address] Care Team Providers Care Swimming Coach Or Instructor Name Role Phone Sharmaine Fletcher DO Unavailable [phone] Dax De Oliveira MD Unavailable [phone] Teddy Antonio MD Unavailable [phone] Scott Sellers MD Unavailable [phone] Sharmaine Fletcher DO Primary Care Provider Encounter Details Date Type Department Care Team (Late st Contact Info) Description 03/31/2023 Orders Only [facility] [address] [facility] [address] [place] [address] Provider, MD Chriss [address] [place] [address] Social History Tobacco Use Types Packs/Day [...] Visit [facility] [address] [facility] [place] [address] Sharmaine Fletcher DO [address] [place] [address] documented as of this encounter Procedures Procedure Name Priority Date/Time Associated Diagnosis Comments COLONOSCOPY DIAGNOSTIC Routine 03/31/2023 9:33 AM EDT documented in this encounter Results * COLONOSCOPY DIAGNOSTIC (03/31/2023 9:33 AM EDT) Anatomical Region Laterality Modality Radiographic Ada ging us Historical Provider MD SHAW XR PROCEDURES Edited Result - Final documented in this encounter Visit Diagnoses Not on filedocumented in this encounter Care Teams Swimming Coach Or Instructor Relationship Specialty Start Date End Date Sharmaine Fletcher DO [address] [facility] [address] [place] [address] PCP - ACO Reach 03/16/23 Sharmaine Fletcher DO [address] [facility] 230 [place] [address] PCP - General Internal Medicine 12/01/23 Dax De Oliveira MD [address] [place] [address] Referring Physician Ophthalmology 09/20/23 Teddy Antonio MD [address] [place] [address] Referring Physician Urology 09/20/23 Scott Sellers MD [address] [place] [address] Referring Physician Vascular Surgery 09/20/23 documented as of this encounter
--- OUTSIDE RECORDS SUMMARY | 2025-05-22 09:40 | XMS_ITS | Clinical Summary ---
Author Organization [facility] Address [address] [place] [address] Care Team Providers Care Costing Analyst Name Role Phone Sharmaine Fletcher DO Unavailable [phone] Dax De Oliveira MD Unavailable [phone] Teddy Antonio MD Unavailable [phone] Scott Sellers MD Unavailable Sharmaine Fletcher DO Primary Care Provider Allergies No known active allergies Medications aspirin 81 MG chewable tablet Chew 81 mg 1 (one) time each day at the same time. Active estradiol (Estrace) 0.1 MG/GM vaginal cream Insert 1 g into the vagina 2 (two) times a week. Active Meloxicam 15 MG tablet dispersibleIndic ations:Arthritis Take 15 mg by mouth Daily 30 tablet 3 12/27/19 25 Active amLODIPine (Norvasc) 5 MG tabletIndication s:Essential (primary) hypertension TAKE 1 TABLET BY MOUTH EVERY DAY 90 tablet 3 02/11/20 25 Active atorvastatin (Lipitor) 80 MG tabletIndication s:Hyperlipidemia , unspecified TAKE 1 TABLET BY MOUTH EVERY DAY 90 tablet 3 02/11/20 25 Active escitalopram (Lexapro) 10 MG tabletIndication s:Depression with anxiety Take 1 tablet (10 mg) by mouth Daily 90 tablet 3 05/08/20 25 Active metoprolol succinate XL (Toprol-XL) 100 MG 24 hr tabletIndication s:Essential hypertension Take 1 tablet (100 mg) by mouth Daily 90 tablet 3 05/08/20 25 Active escitalopram (Lexapro) 10 MG tabletIndication s:Depression with anxiety TAKE 1 TABLET BY MOUTH EVERY DAY 90 tablet 3 02/26/20 24 025 Discontinued metoprolol succinate XL (Toprol-XL) 100 MG 24 hr tabletIndication s:Essential hypertension TAKE 1 TABLET BY MOUTH EVERY DAY 90 tablet 3 02/26/20 24 025 Discontinued metoprolol succinate XL (Toprol-XL) 100 MG 24 hr tabletIndication s:Essential hypertension TAKE 1 TABLET BY MOUTH EVERY DAY 90 tablet 3 04/28/20 25 025 Discontinued(Re order) escitalopram (Lexapro) 10 MG tabletIndication s:Depression with anxiety TAKE 1 TABLET BY MOUTH EVERY DAY 90 tablet 3 04/28/20 25 025 Discontinued(Re order) Active Problems Problem Noted Date Diagnosed Date Arthritis of left knee 06/05/2023 Overview (08/30/2024): She reports the U-Charmaine supplement she took REALLY helped her arthritis, but then there was FDA advisory regarding it due to contamination with diclofenac and omeprazole. 08/2024 She recently had injection in the knee and reports this has significantly improved her sx Assessment & Plan (08/30/2024 10:29 AM EST): She has F/U scheduled Carotid stenosis, bilateral 06/05/2023 Overview (12/26/2024): -left carotid stent 12/[address] Sellers. She was on Plavix for ~3 months -05/04/2024 she presented to ER with RUE numbness. CT/CTA neck showed: 1) calcified plaque contributing to significant stenosis of origin of right vertebral artery. 2) calcified plaque left ICA terminus contributing to at least moderate narrowing. To remain in ASA (plavix was stopped by Vascular Surgery) and statin Assessment & Plan (05/01/2025 11:50 AM EDT): Continue with risk factor optimization Assessment & Plan (08/30/2024 10:26 AM EST): Continue with risk factor optimization Assessment & Plan (05/08/2024 2:07 PM EDT): She continues to follow with Vasc Surgery. Will plan to continue Plavix (after completes 3 weeks of DAPT with ASA and plavix) Assessment & Plan (10/15/2023 3:51 PM EST): Risk factor optimization Dysthymia 06/05/2023 Overview (10/15/2023): Prescribed escitalopram Assessment & Plan (01/19/2025 7:49 PM EDT): Her sx are doing fine on current rx. Based on review of patient's medications and current medical status; continuation of medications most appropriate. Will continue to monitor sx control Assessment & Plan (10/15/2023 3:52 PM EST): -Pt is doing fine on current rx. Based on review of patient's medications and current medical status; continuation of medications most appropriate. Compliance with medications and/or management recommendations encouraged. Monitor Essential hypertension 06/05/2023 Overview (08/30/2024): She is prescribed amlodipine and metoprolol Assessment & Plan (05/01/2025 11:39 AM EDT): I have reinforced importance of lifestyle modifications (healthy diet choices, regular exercise and weight management) for fpc control of blood pressure. Pt is aware of the increased risk of complications ( for example: stroke, heart failure, heart attack, kidney damage or ) when BP not adequately controlled. -Based on review of medications and current medical status; continuation of medications most appropriate. -Will continue to monitor on current rx Assessment & Plan (01/19/2025 7:40 PM EDT): BP continue to do well. Will continue current meds and dosing. Will continue to monitor Assessment & Plan (08/30/2024 10:24 AM EST): BP continue to do well. Will continue current meds and dosing. Will continue to monitor Assessment & Plan (05/08/2024 2:07 PM EDT): Her BP is doing fine on current rx. Based on review of patient's medications and current medical status; continuation of medications most appropriate. Compliance with medications and/or management recommendations encouraged. Will continue to monitor Assessment & Plan (12/01/2023 10:47 AM EST): BP looks good. Continue current medications and monitor Assessment & Plan (09/20/2023 9:05 AM EST): -Reinforced importance of lifestyle modifications (healthy diet choices, regular exercise and weight management) for fpc control of blood pressure. Limit salt. Follow the DASH diet. Advised of increased risk of complications ( for example: stroke, heart failure, heart attack, kidney damage or ) when BP not adequately controlled. BP goals reviewed and specific recommendations to achieve the goal/maintain goal BP discussed Assessment & Plan (06/09/2023 10:38 AM EDT): -Reinforced importance of lifestyle modifications (healthy diet choices, regular exercise and weight management) for fpc control of blood pressure. Limit salt. Follow the DASH diet. Advised of increased risk of complications ( for example: stroke, heart failure, heart attack, kidney damage or ) when BP not adequately controlled. BP goals reviewed and specific recommendations to achieve the goal/maintain goal BP discussed Hyperlipidemia LDL goal <100 06/05/2023 Overview (01/19/2025): Prescribed atorvastatin. Her LDL improved from 190 to 75 on 80 mg daily! 08/2023 LDL=53 04/2024 LDL=64 12/2024: SP=640; HDL=60; KH=780; LDL=64; TC/HDL=2.7 Assessment & Plan (05/01/2025 11:40 AM EDT): -The importance of dietary modification, regular cardiovascular activity and compliance with any prescribed medication for correction management/control of lipids has been discussed. Since high cholesterol (especially LDL) is associated with an elevated risk of cardiovascular disease, which includes coronary artery disease, stroke and peripheral vascular disease, and has also been linked to diabetes and high blood pressure risks, by appropriately treating LDL, these risks can be reduced. Assessment & Plan (01/19/2025 7:40 PM EDT): -The importance of dietary modification, regular cardiovascular activity and compliance with any prescribed medication for carbonator management/control of lipids has been discussed. Since high cholesterol (especially LDL) is associated with an elevated risk of cardiovascular disease, which includes coronary artery disease, stroke and peripheral vascular disease, and has also been linked to diabetes and high blood pressure risks, by appropriately treating LDL, these risks can be reduced. Assessment & Plan (08/30/2024 10:27 AM EST): -Reinforced importance of dietary modification, regular cardiovascular activity and compliance with any prescribed medication for fpc management/control of lipids. High cholesterol (especially LDL) is associated with an elevated risk of cardiovascular disease. This includes coronary artery disease. stroke and peripheral vascular disease. High cholesterol has also been linked to diabetes and high blood pressure risks. By appropriately treating LDL, these risks can be reduced. Assessment & Plan (12/01/2023 10:47 AM EST): -Reinforced importance of dietary modification, regular cardiovascular activity and compliance with any prescribed medication for fpc management/control of lipids. High cholesterol (especially LDL) is associated with an elevated risk of cardiovascular disease. This includes coronary artery disease. stroke and peripheral vascular disease. High cholesterol has also been linked to diabetes and high blood pressure risks. By appropriately treating LDL, these risks can be reduced. Assessment & Plan (10/15/2023 3:50 PM EST): -Reinforced importance of dietary modification, regular cardiovascular activity and compliance with any prescribed medication for fpc management/control of lipids. High cholesterol (especially LDL) is associated with an elevated risk of cardiovascular disease. This includes coronary artery disease. stroke and peripheral vascular disease. High cholesterol has also been linked to diabetes and high blood pressure risks. By appropriately treating LDL, these risks can be reduced. Assessment & Plan (06/09/2023 10:38 AM EDT): -Reinforced importance of dietary modification, regular cardiovascular activity and compliance with any prescribed medication for fpc management/control of lipids. High cholesterol (especially LDL) is associated with an elevated risk of cardiovascular disease. This includes coronary artery disease. stroke and peripheral vascular disease. High cholesterol has also been linked to diabetes and high blood pressure risks. By appropriately treating LDL, these risks can be reduced. Type 2 diabetes mellitus wit h kidney complication, without long-term current use of insulin 06/05/2023 Overview (05/01/2025): Her IFG has progressed to DM (08/2023): A1c went from 6.1% in Jun 2022 to 7.0%. 12/01/2023: She made diet changes (really decreased the CHOs). She lost 10# and A1c came down to 5.9%! Advised that will change back to IFG is A1c remains <6.4% at next visit 04/2024 A1c=6.4%; 08/2024 A1c= 6.2%; 12/2024 A1c=6.8%; A1c=6.6% Assessment & Plan (05/01/2025 11:52 AM EDT): -At this appt, I reinforced the importance of dietary modification, routine exercise and weight control for fpc DM management and reduction in risk for development and progression of complications (like vision loss, kidney failure, neuropathy, and increased risk of heart attack and stroke). Chart reviewed to make sure patient is up to date on screenings for DM related comorbidities (ie annual dilated eye exam, annual GISSELLE and other labs and reminded to do daily foot exams). Specific goals for A1c were reviewed and ways to achieve this goals discussed. Assessment & Plan (01/19/2025 7:53 PM EDT): -At this appt, I reinforced the importance of dietary modification, routine exercise and weight control for fpc DM management and reduction in risk for development and progression of complications (like vision loss, kidney failure, neuropathy, and increased risk of heart attack and stroke). Chart reviewed to make sure patient is up to date on screenings for DM related comorbidities (ie annual dilated eye exam, annual GISSELLE and other labs and reminded to do daily foot exams). Assessment & Plan (08/30/2024 10:21 AM EST): -At this appt, I reinforced the importance of dietary modification, routine exercise and weight control for fpc DM management and reduction in risk for [...] and ways to achieve this goals discussed. Assessment & Plan (05/08/2024 2:10 PM EDT): A1c back up a little. She admits she has been eating foods she shouldn't. Encouraged to get back on track with following a low-CHO diet Assessment & Plan (09/20/2023 9:01 AM EST): -I discussed the importance of dietary modification, routine exercise and weight control for fpc DM management and reduction in risk for [...] and ways to achieve this goals discussed. Assessment & Plan (06/09/2023 10:38 AM EDT): -At this appt, I reinforced the importance of dietary modification, routine exercise and weight control for fpc glucose management and reduction in risk for development of DM or DM-related complications (like vision loss, kidney failure, neuropathy, and increased risk of heart attack and stroke). Primary localized osteoarthrosis of ankle and fo ot 06/05/2023 Stage 3a chronic kidney disease 06/05/2023 Overview (01/19/2025): 04/2024- eGFR stable 10/2024 eGFR=58 Assessment & Plan (05/01/2025 11:38 AM EDT): -Will continue to monitor the renal function for any significant decline in eGFR. We will continue to work to optimally control any underlying conditions (DM and/or hypertension specifically) that are associated with worsening effects on kidney function and I will adjust medications as needed due to any changes in the kidney function. -Should microalbuminuria/proteinuria develop, we will discuss FDA-approved meds to decrease risk for progression to ESRD. Assessment & Plan (01/19/2025 7:47 PM EDT): -We will continue to monitor your renal function for any significant decline in eGFR (which is a measure of how well your kidneys are working). We will continue to work to optimally control any underlying conditions that are associated with worsening effects on kidney function and I will adjust medications as needed due to any changes in your kidney function. Assessment & Plan (08/30/2024 10:27 AM EST): -We will continue to monitor your renal function for any significant decline in eGFR (which is a measure of how well your kidneys are working). We will continue to work to optimally control any underlying conditions that are associated with worsening effects on kidney function and I will adjust medications as needed due to any changes in your kidney function. Assessment & Plan (05/08/2024 1:40 PM EDT): -We will continue to monitor your renal function for any significant decline in eGFR (which is a measure of how well your kidneys are working). We will continue to work to optimally control any underlying conditions that are associated with worsening effects on kidney function and I will adjust medications as needed due to any changes in your kidney function. Assessment & Plan (12/01/2023 10:47 AM EST): -We will continue to monitor your renal function for any significant decline in eGFR (which is a measure of how well your kidneys are working). We will continue to work to optimally control any underlying conditions that are associated with worsening effects on kidney function and I will adjust medications as needed due to any changes in your kidney function. Assessment & Plan (09/20/2023 9:02 AM EST): -We will continue to monitor your renal function for any significant decline in eGFR (which is a measure of how well your kidneys are working). We will continue to work to optimally control any underlying conditions that are associated with worsening effects on kidney function and I will adjust medications as needed due to any changes in your kidney function. Assessment & Plan (06/09/2023 10:37 AM EDT): -We will continue to monitor your renal [...] your kidney function. TIA (transient ischemic attack) 06/05/2023 Overview (08/30/2024): 04/2024- after (another) admit for TIA the plavix was restarted and she will continue this indefinitely (but can stop the ASA after 21 days) 08/2024- she has preferred to stop plavix and just be on ASA Assessment & Plan (01/19/2025 7:48 PM EDT): Continue with risk optimization efforts Assessment & Plan (08/30/2024 10:28 AM EST): Continue risk factor modifications to reduce CV complication risks Assessment & Plan (06/09/2023 10:37 AM EDT): Continue risk factor modifications to reduce CV complication risks Hypocitraturic calcium nephrolithiasis Overview (09/20/2023): She follows with Urology/Dr Antonio. 08/2023- she reports that Dr Antonio has her on a medication, but cannot remember the name Resolved Problems Problem Noted Date Diagnosed Date Resolved Date Anxiety disorder 09/05/2023 09/05/2023 Chronic cystitis without hematuria 09/05/2023 09/05/2023 Frequency of urination 09/05/202309/05 Hypocitraturia 09/05/2023 09/05/2023 Migraine headache 09/05/2023 09/05/2023 Urinary, incontinence, stress female 09/05/2023 09/05/2023 Urine incontinence 09/05/2023 Class 1 obesity 06/05/2023 12/01/2023 Assessment & Plan (10/15/2023 3:51 PM EST): -Obesity is a term that means you have a body mass index (BMI) of 30 or higher. Obesity increases your risk of many conditions. Of major concern is that your risk of heart disease is increased. Of particular concern is that a [place] Heart Study analysis concluded that, after other cardiovascular risk factors are controlled, obese individuals have double the risk of new onset heart failure compared with normal weight subjects The risks for hypertension, stroke, diabetes, some cancers (including colon, postmenopausal breast cancer, kidney and esophageal), gallbladder disease, osteoarthritis, gout and breathing problems, such as sleep apnea are increased. I recommend you work on increasing physical activity and diet modifications to achieve goal BMI (less than 30 and preferably less than 25) in order to reduce risk of obesity-related complications. Specifically advised that weight loss if going to start in the kitchen more so than at the gym . While not everyone who is obese will develop one of the above mentioned diseases, the RISK is increased. -Losing a small amount of weight can reduce your chances of developing heart disease or a stroke. Losing even more weight has been shown to lower the risk even more. Assessment & Plan (06/09/2023 10:45 AM EDT): -Obesity is a term that means you have a body mass index (BMI) of 30 or higher. Obesity increases your risk of many conditions. Of major concern is that your risk of heart disease is increased. Of particular concern is that a [place] [facility] Study analysis concluded that, after other cardiovascular risk factors are controlled, obese individuals have double the risk of new onset heart failure compared with normal weight subjects The risks for hypertension, stroke, diabetes, some cancers (including colon, postmenopausal breast cancer, kidney and esophageal), gallbladder disease, osteoarthritis, gout and breathing problems, such as sleep apnea are increased. I recommend you work on increasing physical activity and diet modifications to achieve goal BMI (less than 30 and preferably less than 25) in order to reduce risk of obesity-related complications. Specifically advised that weight loss if going to start in the kitchen more so than at the gym . While not everyone who is obese will develop one of the above mentioned diseases, the RISK is increased. -Losing a small amount of weight can reduce your chances of developing heart disease or a stroke. Losing even more weight has been shown to lower the risk even more. Encounters Date Type Department Care Team Description 05/13/2025 Patient Outreach [facility] [employer] [address] [place] [address] Barb Sheldon RN 05/08/2025 Refill [facility] [address] [place] [address] Candy Lincoln LPN Depression with anxiety; Essential hypertension 05/01/2025 10:45 AM EDT Office Visit [facility] [address] [place] [address] Sharmaine Fletcher, DO Type 2 diabetes mellitus with stage 3a chronic kidney disease, without long-term current use of insulin (HCC) (Primary Dx); Stage 3a chronic kidney disease (CMS-HCC); Essential hypertension ; Hyperlipidemia LDL goal <100 ; Carotid stenosis, bilateral 05/01/2025 Travel 04/30/2025 Travel 04/28/2025 Refill [facility] [address] [place] [address] Sharmaine Fletcher, Essential hypertension ; Depression with anxiety from Last 3 Months Immunizations Immunization Administration Dates Next Due Influenza, High Dose Seasona l, Preservative Free 08/23/2024,06/30/2022,07/15/2021 Influenza, High-dose Seasona l, Quadrivalent, Preservative Free 08/28/2023 Influenza, Recombinant, inje ctable, preservative free 07/31/2020 Influenza, seasonal, injecta ble, preservative free 01/20/2016 Pneumococcal Conjugate PCV 13 01/28/2019 Pneumococcal Polysaccharide PPSV23 07/31/2020 Varicella 01/20/2016 Zoster, Recombinant 12/21/2019,10/17/2019 Family History Medical History Relation Name Comments Drug overdose Brother 1 Accidental Brother 2 Zeke Arellano MVA at a ge 50 Alcohol abuse Brother 2 Zeke Arellano Heart disease Father Umberto Arellano Hyperlipidemia Father Umberto Arellano Hypertension Father Umberto Arellano Brain Aneurysm Mother Melanie Arellano Cirrhosis Mother Iowalexii Arellano Diabetes Mother Iowalexii Arellano Hypertension Mother Melanie Arellano Cirrhosis Sister Katia Ledesma Diabetes Sister Katia Ledesma Heart disease Sister Katia Ledesma Hyperlipidemia Sister Katia Ledesma Hypertension Sister Katia Ledesma Multiple sclerosis Sister Katia Ledesma Relation Name Status Comments Brother 1 (Age 36) a t age 36 Brother 2 Zeke Arellano (Age 50) in a MVA at age 50 Brother 3 2 brothers when they were babies Father Umberto Arellano after o pen heart surgery Mother Melanie Arellano Cause of guille th: Ruptured brain aneurysm Sister Katia Ledesma 1 Son 1 Luke Alive Son 2 Social History Tobacco Use Types Packs/Day Years Used Date Smoking Tobacco: Never Smokeless Tobacco: Never Tobacco Cessation:Counseling Given: No Alcohol Use Standard Drinks/Week Comments Never 0 (1 standard drink = 0.6 oz pure alcohol) caffeine: 1 cup of coffee a day PHQ-2 Answer Date Recorded Patient Health Questionnaire-2 Score 0 08/30/2024 Comments Unknown Sex and Gender Information Value Date Recorded Sex Assigned at Not on file Legal Sex Female 6:37 PM EDT Gender Identity Not on file Sexual Orientation Not on file Last Filed Vital Signs Vital Sign Reading Time Taken Comments Blood Pressure 132/76 05/01/2025 11:09 AM EDT Pulse 58 05/01/2025 11:09 AM EDT Temperature - - Respiratory Rate 18 12/04/2024 2:27 PM EST Oxygen Saturation 98% 05/01/2025 11:09 AM EDT Inhaled Oxygen Concentration - - Weight 73 kg (161 lb) 05/01/2025 11:09 AM EDT Height 154.9 cm (5' 1 ) 12/04/2024 2:27 PM EST Body Mass Index 30.42 12/04/2024 2:27 PM EST Plan of Treatment Upcoming Encounters Date Type Department Care Team (Late st Contact Info) Description 09/02/2025 10:15 AM EST Office Visit [facility] [place] [facility] [address] [place] [phone] Sharmaine Fletcher, [address] [place] [address] Health Maintenance Due Date Last Done Comments CT Colonography 1952 FIT-DNA 1952 FIT 1950 FOBT 1950 Sigmoidoscopy 1950 Influenza Vaccine (#1) 2025 4, 08/28/2023, 06/30/2022, Additional history exists Diabetes: Hemoglobin A1C 08/01/2025 025, 12/25/2024, 08/30/2024, Additional history exists Medicare Annual Wellness (AWV) 08/30/2025 1 10/30/2023, 09/20/2023, 06/30/2022 Diabetes: Urine Protein Screening 12/25/2025 12/25/2024, 09/18/2023, 06/29/2022 Mammogram 12/26/2025 12/26/2024, 10/23, 02/21/2022, Additional history exists Diabetes: Retinopathy Screening 10/28/2026 5, 11/23/2022 Colonoscopy 11/15/2032 03/31/2023, 03/31/2023 Colorectal Cancer Screening 11/15/2032 Pneumococcal Vaccine: 65+ Years Completed 0, 01/28/2019 Procedures Procedure Name Priority Date/Time Associated Diagnosis Comments POCT GLYCATED HEMOGLOBIN, TOTAL Routine 05/01/2025 11:32 AM EDT Type 2 diabetes mellitus with stage 3a chronic kidney disease, without long-term current use of insulin (HCC) BI MAMMOGRAM SCREENING TOMOSYNTHESIS BILATERAL Routine 12/26/2024 3:39 PM EST Encounter for screening mammogram for malignant neoplasm of breast MICROALBUMIN / CREATININE URINE RATIO Routine 12/25/2024 11:35 AM EST Type 2 diabetes mellitus with stage 3a chronic kidney disease, without long-term current use of insulin (HCC) Stage 3a chronic kidney disease ([facility]-HCC) DIABETIC RETINOPATHY SCREENING - OU - BOTH EYES Routine 10/28/2024 11:30 AM EST COLONOSCOPY DIAGNOSTIC Routine 9:33 AM EDT from Last 3 Months or Most Recently Relevant to Health Maintenance Results * POCT Glycated hemoglobin, total (05/01/2025 11:32 AM EDT) Hemoglobin A1C 6.6 Blood 05/01/2025 11:3 2 AM EDT Sharmanie Fletcher DO POINT OF CARE TEST ENTE R/EDIT ORDERABLES Final Result * Bilateral screening mammogram with tomosynthesis (12/26/2024 3:39 PM EST) Anatomical Region Laterality Modality Breast Bilateral Mammography 12/26/2024 3:41 PM EST Impressions 12/26/2024 3:49 PM EST Impression: No specific evidence of malignancy seen in either breast. BIRADS 2 - Benign Findings DENSITY: The breasts are heterogeneously dense, which may obscure small masses. FOLLOW-UP: Routine Screening Mammogram ELECTRONICALLY SIGNED BY: Quan Wright M.D. Narrative 12/26/2024 3:49 PM EST Examination: BI MAMMOGRAM SCREENING TOMOSYNTHESIS BILATERAL Clinical History: screening Technique: Screening digital mammography study of both breasts was performed with 2-D and 3-D tomosynthesis imaging. Study was compared to the prior exam dated 11/09/2023. Findings: There is no evidence of interval dominant spiculated mass, grouped microcalcifications, or skin thickening which would be suggestive of malignancy. Mild scattered benign-appearing calcifications are noted bilaterally. Axillary lymph nodes are noted bilaterally which appear grossly unremarkable. Procedure Note Quan Wright MD - 12/26/2024 Examination: BI MAMMOGRAM SCREENING TOMOSYNTHESIS BILATERAL Clinical History: screening Technique: Screening digital mammography study of both breasts wasperformed with 2-D and 3-D tomosynthesis imaging. Study was compared tothe prior exam dated 11/09/2023. Findings: There is no evidence of interval dominant spiculated mass,grouped microcalcifications, or skin thickening which would be suggestiveof malignancy. Mild scattered benign-appearing calcifications are noted bilaterally.Axillary lymph nodes are noted bilaterally which appear grosslyunremarkable. IMPRESSION: Impression: No specific evidence of malignancy seen in either breast. BIRADS 2 - Benign Findings DENSITY: The breasts are heterogeneously dense, which may obscure smallmasses. FOLLOW-UP: Routine Screening Mammogram ELECTRONICALLY SIGNED BY: Quan Wright M.D. us Sharmaine Fletcher DO IMG BI PROCEDURES Final Result * Microalbumin / creatinine urine ratio (12/25/2024 11:35 AM EST) MICROALBUMIN, URINE <0.7 0.0 - 1.8 mg/dL 12/25/2024 4:16 PM [facility] CREATININE, URINE (RANDOM) 46.00 mg/dL 12/25/2024 4:12 PM [facility] Comment:No reference range e stablished MICROALBUMIN/CR EATININE RATIO Test not performed 0.0 - 30.0 12/25/2024 4:16 PM [facility] Other Urine specimen obtained by clean catch procedure / Unknown 12/25/2024 11:35 AM EST 12/25/2024 1:36 PM EST Sharmaine Fletcher DO LAB URINE ORDERABLES Fi nal Result [facility] [address] [place] [address], [facility] [address] [place] [address] * (ABNORMAL) Diabetic Retinopathy Screening - OU - Both Eyes (10/28/2024 11:30 AM EST) Anatomical Region Laterality Modality Head Other us Noms Provider Unallocated MD OPHTH PHOTOGRAPHY F inal Result * COLONOSCOPY DIAGNOSTIC (03/31/2023 9:33 AM EDT) Anatomical Region Laterality Modality Radiographic Ada ging us Historical Provider MD SHAW XR PROCEDURES Edited Result - Final from Last 3 Months or Most Recently Relevant to Health Maintenance [place] [address] MEDICARE [facility] Care Teams Costing Analyst Relationship Specialty Start Date End Date Sharmaine Fletcher DO [address] [facility] [address] [place] [address] PCP - ACO Reach 03/16/23 Sharmaine Fletcher DO [address] [facility] [address] [address] [place] [address] PCP - General Internal Medicine 12/01/23 Dax De Oliveira MD [address] [place] [id number] Referring Physician Ophthalmology 09/20/23 Teddy Antonio MD [address] [place] [address] Referring Physician Urology 09/20/23 Scott Sellers MD [address] [place] [address] Referring Physician Vascular Surgery 09/20/23
--- NOTE | 2025-05-22 09:43 | PM.CN ---
Consult Note: HPI Data of Consult Patient: known to practice within the last 3 years Requesting Physician: Brittany Hughes NP Primary Care Provider: KALIE SANCHES Consult Narrative Reason for consult: low back pain Narrative: Gwen Alfaro a pleasant 75 year old female presents for evaluation and management of chronic low back pain, historically has failed to benefit from > 6 weeks of PT/HEP, heat, ice, tylenol, NSAIDS. Last evaluated 10/15 as pain was well controlled. Recently patient has had severe low back and LLE pain, was evaluated on 05/09 at the ER who prescribed prednisone, norco, and lidocaine patches which have been mildly beneficial. Pain today 4/10 increasing to 10/10 with standing, walking, activity, ADLs. utilizing motrin, mobic, baclofen prn without side effects. pt notes prior L4-5 OLIVIA provided >50% improvement greater than 6 months and shes interested in repeating. cc:: CC: Brittany Hughes NP Meds Home Medications and Allergies Home Medications ?Medication ?Instructions ?Recorded ?Confirmed ?Type amlodipine 5 mg tablet 5 mg PO DAILY 07/23/24 09/10/24 History aspirin 81 mg tablet,delayed 81 mg PO DAILY 07/23/24 09/10/24 History release atorvastatin 80 mg tablet 80 mg PO DAILY 07/23/24 09/10/24 History baclofen 10 mg tablet 10 mg PO DAILY 07/23/24 09/10/24 History escitalopram oxalate 10 mg tablet 10 mg PO DAILY 07/23/24 09/10/24 History estradiol 0.01% (0.1 mg/gram) 1 g vaginal DAILY 07/23/24 09/10/24 History vaginal cream metoprolol succinate 100 mg 100 mg PO DAILY 07/23/24 09/10/24 History capsule sprinkle, ext. release 24 hr sodium citrate-citric acid 490 5 ml PO DAILY 07/23/24 09/10/24 History mg-640 mg/5 mL oral solution (Oracit) Allergies Allergy/AdvReac Type Severity Reaction Status Date / Time No Known Drug Allergies Allergy Verified 09/10/24 08:09 Exam Constitutional Documenting provider has reviewed patient's vital signs: yes Common normals: no apparent distress, oriented x3, healthy appearing, alert and well nourished General appearance: cooperative HENMT Common normals: normocephalic, hearing grossly normal bilaterally and moist oral mucous membranes Head and scalp: normocephalic Eye Common normals: PERRL Pupil: PERRL Neck & C-Spine Common normals: full ROM General: normal visual inspection Chest Common normals: inspection of chest normal Respiratory Common normals: normal respiratory effort, no retractions and no use of accessory muscles Back & Pelvis Lumbar spine/lower back: ROM limited, pain with ROM, lumbar spinal tenderness and straight leg raise positive left Sacroiliac joints: SI joint(s) abnormal Other: left sij positive araceli(patricks), gaenslens, thigh thrust, compression test decreased sensation left L4,5,S1 strength 4/5 in LLE and 5/5 in RLE Neuro Common normals: oriented x3 Sensorium/orientation: alert Psych Common normals: mental status grossly normal, thought process normal, cooperative, affect normal, speech normal and activity/motor behavior normal Speech: normal speech Thought process: normal thought process Results Additional Findings Additional findings: If on a controlled substance or opioids, I have checked an [place] report on this patient and there are no aberrancies noted in the prescribing history.??If on a controlled substance or opioid a drug screen was completed and reviewed within the last year, and if there has not been a drug screen completed we ordered one today to monitor higher risk, state monitored pain medication use. As part of providing excellent, safe, comprehensive care, the following was completed at our patient's visit: 1. A medication reconciliation and review to ensure accurate knowledge of current/active medications, including asking our patients to inform us about any [id number] medications or herbal remedies/nutritional supplements/alternative remedies. 2. A review to specifically ensure our patients have had annual screening for screening for depression, screening for tobacco use, and screening for unhealthy alcohol use. For concerning screenings had a discussion with the patient, provided patient education, and recommended follow-up with primary care provider when appropriate. If patient noted with a risk of falling, they received education on strength, gait, and balance training to prevent future risk of falling. Portions of this note may have been carried over from the previous visit and updated as appropriate. Please note this office utilizes paper charting in addition to the electronic medical record. A list of current medications, vitals, and PMH is available there as the clinical staff outside of myself do not have access to [employer] charting during the clinic day operations. As part of providing quality comprehensive care the current medications, vitals, and PMH were reviewed in the paper chart. Assessment and Plan Assessment and Plan (1) Lumbar stenosis with neurogenic claudication: Assessment and Plan: The patient has had over 3 months of moderate to severe low back and LLE pain with functional impairment and inadequate response to conservative care including NSAIDS (unless there are contraindication such as concurrent blood thinners), multiple oral or topical pain medications, and home exercise program/physical therapy.? Patient has completed >6 weeks of guided home exercise program and/or formal physical therapy program without relief of their symptoms.? I have reviewed the imaging of the lumbar spine and no red flags were identified.? The imaging reveals radiographic findings consistent with lumbar ddd, lumbar stenosis, lumbar spondylosis The Oswestry Disability Index was completed, and the patient scored a 34%.? The patient noted the following:?? moderate to severe pain impacting ADLs, sitting, standing, sleeping, social life, travel We discussed the risks and benefits of the procedure with the patient, and we are NOT planning on using sedation as outlined in the guidelines from Medicare unless there is a documented reason that sedation would be strongly recommended.?? ?The procedure will be completed with fluoroscopic guidance.? (2) Sacroiliitis: (3) Lumbar spondylosis: Plan proceed with left L4-5 L5-S1 TFESI consider left SIJ injection continue current medications continue HEP as tolerated f/u after injection
--- OUTSIDE RECORDS SUMMARY | 2025-05-22 10:00 | XMS_ITS | CCD ---
Author Organization [facility] Care Team Providers Care [place] Name Role Phone JAZMIN MAURO Admitting Unavailable JAZMIN MAURO Consulting Unavailable JAZMIN MAURO Attending Unavailable NIDA SEXTON Primary Care Unavailable TL JORDAN V Consulting Unavailable Carissa Dias Unavailable DO Sharmaine Wong Primary Care Provider DO Sharmaine Wong Attending Provider [phone] NADER Dias Attending Provider MD Jazmin Mauro Attending Provider SHALONDA Alvarado Attending Provider DO Sharmaine Wong Primary Care Provider DO Delfino Goncalves Emergency Provider [phone] MD Christiano Murillo Attending Provider NADER Dias Attending Provider MD Scott Sellers Attending Provider [phone] Zeus Dolan Unavailable MD Scott Sellers Admit Provider Scott Sellers Unavailable SHARMAINE WONG Primary Care Physician [phone] DO Sharmaine Wong Primary Care Provider [phone] MD Zeus Dolan Attending Provider NADER Dias Attending Provider DO Sharmaine Wong Primary Care Provider Damian-Milton, DO Sharmaine Attending Provider NADER Dias Attending Provider Damian-Milton DO, Sharmaine D Unavailable Dax De Oliveira MD Unavailable Jazmin Mauro MD Unavailable Scott Sellers MD Unavailable [phone] Damian-Milton DO, Sharmaine D Primary Care Provider SHALONDA JON Attending Unavailab le Damian-Milton, DO Sharmaine Primary Care Provider MD Scott Sellers Attending Provider [phone] MD Meme Montelongo Emergency Provider DO Domingo Iglesiasistopher Admit Provider DO Harris Marvin Attending Provider [phone] MD Julian Diaz Other Provider MD Kameron Pires Attending Provider Damian-Milton DO, Sharmaine Primary Care Provider Ambrosio Mcghee DPM Attending Provider [phone] Damian-Milton DO, Sharmaine Primary Care Provider Ambrosio Mcghee DPM Attending Provider Damian-Milton DO, Sharmaine Attending Provider Scott Sellers MD Unavailable [phone] AMBROSIO MCGHEE Attending Unavailable AMBROSIO MCGHEE Attending Unavailable DAMIAN-SHARMAINE SANCHES Attending Unavailab le DAMIAN-EMERYSHARMAINE Attending Unavailab le DAMIAN-EMERYSHARMAINE Referring Unavailab le DAMIAN-EMERSHARMAINE Laughlin Attending Unavailab le DAMIAN-EMERSHARMAINE Laughlin Attending Unavailab le DAMIAN-EMERY, SHARMAINE D Referring Unavailab le AMBROSIO MCGHEE Attending Unavailable AMBROSIO MCGHEE Attending Unavailable AMBROSIO MCGHEE Attending Unavailable DamianKe MCCARTNEY Sharmaine Primary Care Provider Carissa Trujillo Attending Provider Jasmyn DOUBLE ENDING MACHINE OPERATORDelmi Emergency Provider [phone] Sharmaine Wong Attending Unavailable Damian-Bennett, Sharmaine Admitting Unavailable Damian-Milton, Sharmaine Primary Care Unavailable Carissa Dias Admitting Unavailable Carissa Dias Attending Unavailable Damian-Milton, Sharmaine Primary Care Unavailable Damian-Milton, Sharmaine Primary Care Unavailable Ambrosio Mcghee Admitting Unavailable Ambrosio Mcghee Attending Unavailable AjsmynDelmi Admitting Unavailable JasmynDelmi M Attending Unavailable Damian-Milton, Sharmaine Primary Care Unavailable Damian-Bennett, Sharmaine Primary Care Unavailable Ambrosio Mcghee Admitting Unavailable Ambrosio Mcghee Attending Unavailable Medications Current Medications Medication Drug Class(es) Dates Sig (Normalized) Sig (Original) acetaminophen 500 mg oral tablet (13 sources) Start: 12-14-2022 take 2 tablets by mouth twice daily as needed for pain Start: 12-14-2022 take 1000 mg by mout h twice daily Acetaminophen Active 1000 MG PO Twice daily December 14, 2022 1:00am acetaminophen 325 mg / HYDROcodone bitartrate 5 mg oral tablet (4 sources) Opioid Agonist Start: 11-04-2024 End: 11-09-2024 take 1 tablet by mouth every eight hours as needed for pain HYDROcodone-acetaminophen (Ava) 5-325 MG tablet Indications: Pain Take 1 tablet by mouth every 8 (eight) hours if needed for moderate pain (PRN pain) for up to 5 days 15 tablet 11/04/2024 11/09/2024 Active amLODIPine 5 mg oral tablet (20 sources) Dihydropyridine Calcium Channel Giovani Start: 02-08-2021 take 1 tablet by mouth once daily amLODIPine (Norvasc) 5 MG tablet Indications: Essential (primary) hypertension TAKE 1 TABLET BY MOUTH EVERY DAY 90 tablet 3 02/10/2025 Active aspirin 81 mg chewable tablet (20 sources) Platelet Aggregation Inhibitor, Nonsteroidal Anti-inflammatory Drug Start: 02-08-2021 take 1 tablet by mouth once daily take 1 tablet by mouth once gian y Aspirin 81 81 MG 1 tablet Orally Once a day Active atorvastatin 80 mg oral tablet (20 sources) HMG-CoA Reductase Inhibitor Start: 02-08-2021 take 1 tablet by mouth once daily atorvastatin (Lipitor) 80 MG tablet Indications: Hyperlipidemia, unspecified TAKE 1 TABLET BY MOUTH EVERY DAY 90 tablet 3 02/10/2025 Active cholecalciferol 0.025 mg chewable tablet (13 sources) Vitamin D Start: 12-14-2022 take 1 tablet by mouth once daily clopidogrel 75 mg oral tablet (20 sources) P2Y12 Platelet Inhibitor Start: 05-06-2024 take 1 tablet by mouth once daily Start: 12-05-2022 End: 05-04-2024 take 1 tablet by mouth once daily Clopidogrel 75 mg tablet Discontinued 75 MG PO Daily December 14, 2022 [...] BY MOUTH EVERY DAY 90 tablet 3 04/28/2025 Active Start: 12-12-2019 escitalopram O ral, Daily, Refills(s) 0 Start Date: 12/12/19 Status: Ordered estradiol 0.1 mg/ml vaginal cream (20 sources) Estrogen Start: 03-28-2024 estradiol 0.1 mg/g Vag Crm 1 gram, Vaginal, MonFri, 42.5 gram, Refill(s) 6, Apply 1 gram 2x/ week and rub some around the urethra., [employer] [facility], 157, cm, 03/28/24 11:07:00 EDT, Height/Length Dosing, 68.6, kg, 03/28/24 11:07:00 EDT, Weight Dosing Start Date: 03/28/24 Status: Ordered Start: 12-13-2021 estradiol 0.1 mg/g Vag Crm 1 gram, Vaginal, MonFri, 42.5 gram, Refill(s) 6, Apply 1 gram 2x/ week and rub some around the urethra., [employer] #14, 157, cm, 12/13/21 10:56:00 EST, [...] Monday Active hydroCHLOROthiazide 25 mg oral tablet (5 sources) Thiazide Diuretic Start: 05-06-2024 take 1 tablet by mouth once daily lidocaine 0.05 mg/mg medicated patch (1 source) Antiarrhythmic, Amide Local Anesthetic Start: 05-09-2025 apply 1 dose topically once daily meloxicam 15 mg oral tablet (5 sources) Nonsteroidal Anti-inflammatory Drug Start: 04-15-2025 take 1 tablet by mouth once daily Start: 12-26-2024 take 1 tablet by beverley once daily Meloxicam 15 MG tablet dispersible Indications: Arthritis Take 15 mg by mouth Daily 30 tablet 3 12/26/2024 Active 24 hr metoprolol succinate 100 mg extended release oral tablet (20 sources) beta-Adrenergic Giovani Start: 02-07-2021 take 1 tablet by mouth once daily metoprolol succinate XL (Toprol-XL) 100 MG 24 hr tablet Indications: Essential hypertension TAKE 1 TABLET BY MOUTH EVERY DAY 90 tablet 3 04/28/2025 Active Start: 12-12-2019 take 1 mg by [...] day at the same time. 0 Active Padsetnq-Rqn-Scmu-Fa-Lut ein (Multivitamin Women 50 Plus) 8 mg iron-400 mcg-300 mcg Tablet (3 sources) Start: 12-14-2022 take 1 tablet by mouth once daily Neivuxca-Cya-Roti-Fa-Halima tein (Multivitamin Women 50 Plus) 8 mg iron-400 mcg-300 mcg Tablet Active 1 TAB PO Daily December 14, 2022 1:00am Start: 12-14-2022 take 1 tablet by beverley th once daily Kzqhhnmg-Xrj-Soso-Fa-Lutein (Multivitami n Women 50 Plus) 8 mg iron-400 mcg-300 mcg Tablet Active 1 TAB PO Daily December 14, 2022 12:00am Ygqtlnmm-Cgg-Szla-Fa-Vit K-L ut (Multivitamin Women 50 Plus) 8 mg iron-400 mcg-300 mcg Tablet (10 sources) Start: 12-14-2022 take 1 tablet by beverley th once daily Start: 12-14-2022 take 1 tablet by beverley th once daily Ukiyuiee-Gak-Bqpk-Fa-Vit K-Lut (Multivitamin Women 50 Plus) 8 mg iron-400 mcg-300 mcg Tablet Active 1 TAB PO Daily December 14, 2022 1:00am Start: 12-14-2022 take 1 tablet by beverley th once daily Ehantthz-Cto-Kohr-Fa-Vit K-Lut (Multivitamin Women 50 Plus) 8 mg [...] tablet 3 05/12/2023 Active Start: 02-07-2021 End: 12-26-2024 take 1 tablet by mouth once daily Naproxen 500 mg tablet Discontinued 500 MG PO Daily February 07, 2021 12:00am February 08, 2021 3:41pm Start: 12-12-2019 naproxen Oral, Refills(s) 0 Start Date: 12/12/19 Status: Ordered take 1 tablet by beverley th every twelve hours at mealtime as needed Naproxen 500 MG 1 tablet with food or milk as needed Orally every 12 hrs Active potassium chloride 25 meq oral tablet (5 sources) Klor-Con 25 MEQ as directed Orally Active predniSONE 20 mg oral tablet (1 source) Start: 05-09-2025 take 2 tablets by mouth once daily umary (2 sources) Start: 05-04-2024 take 1 [...] BID, # 60 tab(s), Refills(s) 1, Pharmacy: [facility], 157, cm, 12/13/21 10:56:00 EST, Height/Length Dosing, 73.5, kg, 12/13/21 10:56:00 EST, Weight Dosing Start Date: 12/13/21 Status: Ordered erythromycin 0.005 mg/mg ophthalmic ointment (13 sources) Macrolide, Macrolide Antimicrobial Start: 12-14-2022 End: 12-22-2022 Erythromycin 5 mg/gram (0.5 %) ointment Discontinued 1 APPLIC EYE-LEFT Daily December 14, 2022 1:00am December 22, 2022 11:04am Start: 12-14-2022 End: 12-22-2022 Erythromycin 5 mg/gram (0.5 %) ointment Discontinued 1 APPLIC EYE-LEFT Daily December 14, 2022 1:00am December 22, 2022 11:04am Potassium Bicarb-Citric Acid (Klor-Con/Ef) 25 mEq tablet, effervescent (15 sources) Start: 02-08-2021 End: 03-30-2023 Potassium Bicarb-Citric [...] PO Daily 0 February 08, 2021 2:40pm potassium bicarbonate 25 meq effervescent oral tablet (20 sources) Start: 02-08-2021 End: 03-30-2023 Potassium Bicarb-Citric Acid (Klor-Con/Ef) 25 mEq tablet, effervescent Discontinued 25 MEQ PO Daily 0 February 08, 2021 3:40pm March 30, 2023 12:36pm Start: 02-07-2021 End: 02-08-2021 Potassium Bicarb-Citric Acid (Klor-Con/Ef) 25 mEq tablet, effervescent Discontinued 25 MEQ PO Twice daily with meals February 07, 2021 12:00am February 08, 2021 3:41pm umary 850 mg (4 sources) Start: 05-04-2024 End: 04-15-2025 take 1 tablet by mouth once daily umary 850 mg Discontinued 1 TAB PO Daily May 04, 2024 12:00am April 15, 2025 11:25am Start: 05-04-2024 take 1 tablet by mouth once da tom umary 850 mg Active 1 TAB PO Daily May 04, 2024 12:00am Start: 05-04-2024 take 1 tablet by mouth once da tom umary 850 mg Active 1 TAB PO Daily May 03, 2024 11:00pm vitamin b12 2.5 mg sublingual tablet (13 sources) Vitamin B12 Start: 12-14-2022 End: 05-04-2024 take 1 tablet by mouth once daily Cyanocobalamin (Vitamin B-12) (Vitamin B-12) 2,500 mcg Tablet, Sublingual Discontinued 2500 MCG PO Daily December 14, 2022 1:00am May 04, 2024 3:57pm Problems Active Problems Problem Classification Problem Date Documented Da te Episodic/Chronic Administrative/social admission (4 sources) Patient encounter status; Translations: [Other specified counseling] 08-30-2024 Episodic Anxiety disorders (20 sources) Anxiety; Translations: [Anxiety disorder, unspecified] Onset: 09-05-2023 Resolved: 09-05-2023 11-12-2022 Chronic Calculus of urinary tract (20 sources) Calculus of kidney; Translations: [History of calculus of kidney] Onset: 12-10-2020 Episodic Chronic kidney disease (20 sources) Chronic kidney disease stage 3A ; Translations: [Stage 3a chronic kidney disease (HCC) ([facility]/HCC)] Onset: 06-05-2023 12-01-2023 Chronic Chronic kidney disease (1 source) Chronic kidney disease; Translations: [Chronic kidney disease, stage 3a] Onset: 12-25-2024 Conditions associated with dizziness or vertigo (20 sources) Dizziness; Translations: [Dizziness and giddiness] 02-08-2021 Episodic Diabetes mellitus with complications (20 sources) Type 2 diabetes mellitus; Translations: [Type 2 diabetes mellitus with diabetic chronic kidney disease] Onset: 06-05-2023 12-01-2023 Chronic Disorders of lipid metabolism (20 sources) Mixed hyperlipidemia; Translations: [Mixed hyperlipidemia] Onset: 06-05-2023 04-29-2019 Chronic Essential hypertension (20 sources) Essential hypertension; Translations: [Essential (primary) hypertension] Onset: 06-05-2023 12-01-2023 Chronic Headache; including migraine (8 sources) Headache disorder; Translations: [Other headache syndrome] Episodic Mood disorders (20 sources) Depressive disorder; Translations: [Dysthymia] Onset: 06-05-2023 04-29-2019 Chronic Occlusion or stenosis of precerebral arteries (20 sources) Occlusion and stenosis of multiple and bilateral cerebral arteries; Translations: [Occlusion and stenosis of bilateral carotid arteries] Onset: 05-31-2022 Resolved: 05-31-2022 Chronic Osteoarthritis (20 sources) Arthritis; Translations: [Arthritis of left knee] Onset: 06-05-2023 04-29-2019 Chronic Other acquired deformities (6 sources) Contracture of joint of right ankle; Translations: [Contracture, right ankle] 11-04-2024 Chronic Other bone disease and musculoskeletal deformities (10 sources) Exostosis of right foot; Translations: [Other specified disorders of bone, ankle and foot] 09-03-2024 Episodic Other connective tissue disease (10 sources) Plantar fasciitis; Translations: [Plantar fascial fibromatosis] 09-03-2024 Episodic Other lower respiratory disease (16 sources) Dyspnea; Translations: [Dyspnea, unspecified] 11-12-2022 Episodic Other nervous system disorders (20 sources) Numbness; Translations: [Anesthesia of skin] 02-08-2021 Episodic Other non-traumatic joint disorders (1 source) Hip pain; Translations: [Pain in unspecified hip] 05-09-2025 Episodic Other nutritional; endocrine; and metabolic disorders (3 sources) Overweight in adulthood with body mass index of 25 or more but less than 30; Translations: [Body mass index (BMI) 28.0-28.9, adult] 12-01-2023 Episodic Other upper respiratory infections (1 source) Viral upper respiratory tract infection; Translations: [Acute upper respiratory infection, unspecified] 12-01-2023 Episodic Poisoning by other medications and drugs (8 sources) Poisoning by vitamin; Translations: [Poisoning by vitamins, accidental (unintentional), initial encounter] 05-04-2024 Episodic Residual codes; unclassified (8 sources) Non-smoker; Translations: [Other specified health status] 04-09-2024 Episodic Residual codes; unclassified (3 sources) Other specified health status; Translations: [Other specified conditions influencing health status] 04-09-2024 Episodic Spondylosis; intervertebral disc disorders; other back problems (1 source) Low back pain; Translations: [Low back pain] 05-09-2025 Episodic Transient cerebral ischemia (20 sources) Transient cerebral ischemia; Translations: [Transient cerebral ischemic attack, unspecified] Onset: 06-05-2023 02-07-2021 Chronic Unclassified (4 sources) Urine finding 03-28-2023 Urinary tract infections (20 sources) Chronic cystitis; Translations: [Other chronic cystitis without hematuria] Onset: 03-28-2023 Resolved: 09-05-2023 Chronic Past or Other Problems Problem Classification Problem Date Documented Da te Episodic/Chronic Genitourinary symptoms and ill-defined conditions (20 sources) Unspecified urinary incontinence; Translations: [Female stress incontinence] Onset: 03-28-2023 Resolved: 09-05-2023 Chronic Genitourinary symptoms and ill-defined conditions (20 sources) Abnormal urinary product; Translations: [Hypocitraturia] Onset: 03-28-2023 Resolved: 09-05-2023 Episodic Headache; including migraine (20 sources) Migraine; Translations: [Migraine, unspecified, not intractable, without status migrainosus] Onset: 09-05-2023 Resolved: 09-05-2023 04-29-2019 Chronic Other nutritional; endocrine; and metabolic disorders (20 sources) Obese class I; Translations: [Obesity, unspecified] Onset: 06-05-2023 Resolved: 12-01-2023 12-01-2023 Chronic Results Test Name Value Interpretation Reference Range Facility X-ray reportOrdered By: Ata Samuel on 05-09-2025 [place] [address] XRay Report Signed Patient: Sarah Alfaro MR#: [id number] : 1950 Acct:[id number] Age/Sex: 75 / F ADM Date: 5 Loc: ER Room: Type: [facility] ER Attending Dr: Copies to: Delmi Vines APRN~ Ordering Provider: Delmi Vines APRN Date of Service: 05/09/25 XR/XR hip LT min 2V(w/wo pelvis)*: Extremity Injury, Lower XR hip LT min 2V(w/wo pelvis)* 05/09/2025 4:51 PM SIGNS AND SYMPTOMS: Low back and left hip pain PROTOCOL: Frontal radiograph of the pelvis with frontal and frog-leg views of the left hip COMPARISON: None FINDINGS: There is mild narrowing of the joint spaces of the hips. Degenerative changes are noted in the lumbar spine and sacral iliac joints. Vascular calcifications are present. There is no fracture or dislocation. XR/XR hip LT min 2V(w/wo pelvis)* IMPRESSION: No acute bony injury. Degenerative changes are noted in the lumbar spine, sacroiliac joints, and hips bilaterally. Impression dictated by: Ata Samuel M.D. 05/09/2025 5:09 PM Dictation Location: [facility]IO-PC-17 Transcribed By: YADIRA 05/09/251708 Dictated By: Ata Samuel II, MD 05/09/251707 Signed By: 05/09/251708 [facility] Work Phone: Study report [facility] [place] [address] XRay Report Signed Patient: Sarah Alfaro MR#: [id number] : 1950 Acct:[id number] Age/Sex: 75 / F ADM Date: 5 Loc: ER Room: Type: [facility] ER Attending Dr: Copies to: Delmi Vines APRN~ Ordering Provider: Delmi Vines APRN Date of Service: 05/09/25 XR/XR lumbar spine min 4V*: Extremity Injury, Lower XR lumbar spine min 4V* 05/09/2025 4:51 PM SIGNS AND SYMPTOMS: Low back pain radiating to left hip and gluteal region PROTOCOLS: Frontal, lateral, and oblique radiographs of the lumbar spine COMPARISON: 07/03/2013 FINDINGS: There is moderate disc height loss throughout the lumbar spine with severe disc height loss at L5-S1. There is accompanying anterior osteophyte formation. There is facet hypertrophy. There is no fracture or subluxation. There is a dextro convex curvature. Mild degenerative changes are noted in the hips and sacroiliac joints. Atherosclerotic changes are noted in the abdominal aorta. There is evidence of prior cholecystectomy. XR/XR lumbar spine min 4V* IMPRESSION: No acute bony injury. There is a similar dextro convex curvature. Worsening multilevel degenerative changes noted, greatest at L5-S1. Impression dictated by: Ata Samuel M.D. 05/09/2025 5:06 PM Dictation Location: [facility]-PC-17 Transcribed By: YADIRA 05/09/251705 Dictated By: Ata Samuel II, MD 05/09/251701 Signed By: 05/09/251705 [facility] Work Phone: XR hip LT min 2V(w/wo pelvis )*on 05-09-2025 XR hip LT min 2V(w/wo pelvis)* [facility] Main [address] [address] XRay Report Signed Patient: Sarah Alfaro MR#: [id number] : 1950 Acct:[id number] Age/Sex: 75 / F ADM Date: 05/09/25 Loc: ER Room: Type: [facility] ER Attending Dr: Copies to: Delmi Vines APRN Ordering Provider: Delmi Vines APRN Date of Service: 05/09/25 XR/XR hip LT min 2V(w/wo pelvis)*: Extremity Injury, Lower XR hip LT min 2V(w/wo pelvis)* 05/09/2025 4:51 PM SIGNS AND SYMPTOMS: Low back and left hip pain PROTOCOL: Frontal radiograph of the pelvis with frontal and frog-leg views of the left hip COMPARISON: None FINDINGS: There is mild narrowing of the joint spaces of the hips. Degenerative changes are noted in the lumbar spine and sacral iliac joints. Vascular calcifications are present. There is no fracture or dislocation. XR/XR hip LT min 2V(w/wo pelvis)* IMPRESSION: No acute bony injury. Degenerative changes are noted in the lumbar spine, sacroiliac joints, and hips bilaterally. Impression dictated by: Ata Samuel M.D. 05/09/2025 5:09 PM Dictation Location: [place] [address] Transcribed By: [facility] 05/09/251708 Dictated By: Ata Samuel II, MD 05/09/251707 Signed By: 05/09/251708 [facility] XR lumbar spine min 4V*on XR lumbar spine min 4V* [facility] Main [address] [address] XRay Report Signed Patient: Sarah Alfaro MR#: [id number] 522 : 1950 Acct:[id number] Age/Sex: 75 / F ADM Date: 05/09/25 Loc: ER Room: Type: [facility] ER Attending Dr: Copies to: Delmi Vines APRN Ordering Provider: Delmi Vines APRN Date of Service: 05/09/25 XR/XR lumbar spine min 4V*: Extremity Injury, Lower XR lumbar spine min 4V* 05/09/2025 4:51 PM SIGNS AND SYMPTOMS: Low back pain radiating to left hip and gluteal region PROTOCOLS: Frontal, lateral, and oblique radiographs of the lumbar spine COMPARISON: 07/03/2013 FINDINGS: There is moderate disc height loss throughout the lumbar spine with severe disc height loss at L5- S1. There is accompanying anterior osteophyte formation. There is facet hypertrophy. There is no fracture or subluxation. There is a dextro convex curvature. Mild degenerative changes are noted in the hips and sacroiliac joints. Atherosclerotic changes are noted in the abdominal aorta. There is evidence of prior cholecystectomy. XR/XR lumbar spine min 4V* IMPRESSION: No acute bony injury. There is a similar dextro convex curvature. Worsening multilevel degenerative changes noted, greatest at L5-S1. Impression dictated by: Ata Samuel M.D. 05/09/2025 5:06 PM Dictation Location: [place] [address] Transcribed By: [facility] 05/09/25 170 Dictated By: Ata Samuel II, MD 05/09/251701 Signed By: 05/09/251705 Normal [facility] Laboratory - Hematology and Cell countson 05-01-2025 HbA1c (Bld) [Mass fraction] 6.6 % [facility] No Panel Informationon 05-01 [facility] US carotid doppler BIon 03-24 US carotid doppler [facility] [address] [place] [address] Ultrasound Report Signed Patient: Sarah Alfaro MR#: [id number] 522 : 1950 Acct:[id number] Age/Sex: 75 / F ADM Date: 04/15/25 Loc: [facility] Room: Type: DEP CLI Attending Dr: Carissa Dias [employer]-C Ordering Provider: Carissa Dias APRN Date of Service: 04/15/25 US/US carotid doppler BI: I65.23 - Occlusion and stenosis of bilateral carotid darrel... Copies to: Carissa Dias APRN CAROTID DUPLEX INDICATION: Follow-up known carotid occlusive disease PROCEDURE: Color-flow duplex scanning is used to interrogate the extracranial carotid arterial system, as well as both vertebral arteries. Both carotid bifurcations show mild to moderate heterogeneous plaque formation. The proximal right internal carotid artery shows a highest peak systolic velocity of 106 cm/s with an end-diastolic velocity of 28 cm/s . The mid internal carotid artery measures 93.9 cm/s peak systolic and 24.5 cm/s end diastolic. The distal segment measures 80.1 cm/s peak systolic with an end diastolic velocity of 27.3 cm/s . The velocities of the right common carotid artery are 76.3 cm/s peak systolic and 13.7 cm/s end-diastolic proximally and 68.8 cm/s peak systolic and 15.7 cm/s end diastolic distally. The peak systolic velocity ratio of the internal to the common carotid artery is 1.54. The right external carotid artery measures 123 cm/s peak systolic. The right vertebral artery is patent at 39.1 cm/s with antegrade flow. There is an indwelling left carotid stent. The proximal left internal carotid artery shows a highest peak systolic velocity of 87.6 cm/s with an end-diastolic velocity of 25.9 cm/s . The mid internal carotid artery measures 93.9 cm/s peak systolic and 25.9 cm/s end diastolic. The distal segment measures 70.8 cm/s peak systolic with an end diastolic velocity of 21 cm/s . The velocities of the left common carotid artery are 61.4 cm/s peak systolic and 12.3 cm/s end-diastolic proximally and 58.4 cm/s peak systolic and 14 cm/s end diastolic distally. The peak systolic velocity ratio of the internal to the common carotid artery is 1.61 . The left external carotid artery measures 267 cm/s peak systolic. The left vertebral artery is patent at 51.4 cm/s with antegrade flow. US/US carotid doppler BI IMPRESSION: Moderate plaque formation in the right internal carotid artery with less than 50% stenosis. Patent left internal carotid artery stent with no hemodynamically significant residual or recurrent stenosis. Impression dictated by: Scott Sellers M.D. 04/15/2025 11:37 AM Dictation Location: [place] [address] Tech: Sariah Gomez Transcribed By: YADIRA 04/15/25 1137 Dictated By: Scott Sellers MD 04/15/25 1136 Signed By: 04/15/25 1137 Normal [facility] [facility] SCREENING TOMOS YNTHESIS BILATERALon 12-26-2024 BI MAMMOGRAM SCREENING TOMOSYNTHESIS BILATERAL This is a summary report. The complete report is available in the patient's medical record. If you cannot access the medical record, please contact the sending organization for a detailed fax or copy. Examination: BI MAMMOGRAM SCREENING TOMOSYNTHESIS BILATERAL Clinical [...] are noted bilaterally which appear grossly unremarkable. IMPRESSION: Impression: No specific evidence of malignancy seen in either breast. BIRADS 2 - Benign Findings DENSITY: The breasts are heterogeneously dense, which may obscure small masses. FOLLOW-UP: Routine Screening Mammogram ELECTRONICALLY SIGNED BY: Quan Wright M.D. Normal Not Available DBT Breast - bilateral kb lind 12-26-2024 Impression: No speci fic evidence of malignancy seen in either breast. BIRADS 2 - Benign Findings DENSITY: The breasts are heterogeneously dense, which may obscure small masses. FOLLOW-UP: Routine Screening Mammogram ELECTRONICALLY SIGNED BY: Quan Wright M.D. IMAGING Examination: BI MAMM OGRAM SCREENING TOMOSYNTHESIS BILATERAL Clinical History: screening Technique: [...] are noted bilaterally which appear grossly unremarkable. IMAGING Quan Wright MD - 12/26/2024 Examination: BI [...] are noted bilaterally which appear grossly unremarkable. IMPRESSION: Impression: No specific evidence of malignancy seen in either breast. BIRADS 2 - Benign Findings DENSITY: The breasts are heterogeneously dense, which may obscure small masses. FOLLOW-UP: Routine Screening Mammogram ELECTRONICALLY SIGNED BY: Quan Wright M.D. [facility] Radiology Study observation (narrative) [facility] DBT Breast - bilateral scree ningOrdered By: Quan Wright on 12-26-2024 [facility] A1C with Estimated Average G mohann 12-25-2024 Glucose [Mass/Vol] 148 mg/dL Normal [facility] Comment on above: Result Comment: PERF ORMED BY: [place] [address] PATHOLOGIST TRACK SERVICE PERSON HERNESTO SIMENTAL M.D. Performed By: #### A 1C [facility] eA #### [address] HbA1c (Bld) [Mass fraction] 6.8 % High 4.3-5.6 [facility] Comment on above: Result Comment: Incr eased risk for diabetes: 5.7 - 6.4 diabetes: >6.4 glycemic control for adults with diabetes: <7.0 Performed By: #### A 1C [facility] eA #### [address] Alanine aminotransferase [En zymatic activity/volume] in Serum or PlasmaOrdered By: Sharmaine Wong on 12-25-2024 ALT [Catalytic activity/Vol] Alanine aminotransferase [Enzymatic activity/volume] in Serum or Plasma 7-52 [facility] Albumin [Mass/volume] in Ser um or Plasma by Bromocresol green (BCG) dye binding methoOrdered By: Sharmaine Wong on 12-25-2024 Albumin BCG dye [Mass/Vol] Albumin [Mass/volume] in Serum or Plasma by Bromocresol green (BCG) dye binding metho 3.5-5.7 [facility] Alkaline phosphatase [Enzyma tic activity/volume] in Serum or PlasmaOrdered By: Sharmaine Wong on 12-25-2024 ALP [Catalytic activity/Vol] Alkaline phosphatase [Enzymatic activity/volume] in Serum or Plasma 34-104 [facility] Aspartate aminotransferase [ Enzymatic activity/volume] in Serum or PlasmaOrdered By: Sharmaine Wong on 12-25-2024 AST [Catalytic activity/Vol] Aspartate aminotransferase [Enzymatic activity/volume] in Serum or Plasma 13-39 [facility] Bilirubin.direct [Mass/volum e] in Serum or PlasmaOrdered By: Sharmaine Wong on 12-25-2024 Bilirubin.direct [Mass/Vol] Bilirubin.direct [Mass/volume] in Serum or Plasma High 0.03-0.18 [facility] Bilirubin.total [Mass/volume ] in Serum or PlasmaOrdered By: Sharmaine Wong on 12-25-2024 Bilirubin [Mass/Vol] Bilirubin.total [Mass/volume] in Serum or Plasma High 0.3-1.0 [facility] Comment on above: Samples from patient s who have taken Naproxen have shown spurious elevation in Total Bilirubin levels. A metabolite of Naproxen, O-desmethylnaproxen, has been shown to interfere with the Arivn-Samantha method for measuring Total Bilirubin. Cholesterol [Mass/volume] in Serum or PlasmaOrdered By: Sharmaine Wong on 12-25-2024 Cholesterol [Mass/Vol] Cholesterol [Mass /volume] in Serum or Plasma 140-200 [facility] Comment on above: Chol less than 200 m g/dl low riskChol 201-239 mg/dl borderline riskChol 240 mg/dl and greater high risk Cholesterol in HDL [Mass/vol ume] in Serum or PlasmaOrdered By: Sharmaine Sanches on 12-25-2024 Cholesterol in HDL [Mass/Vol] Serum or plasma high density lipoprotein (HDL) cholesterol measurement [facility] Comment on above: HDL CHOL ATP-III CLA SSIFICATION Cardiovascular RiskHDL > or equal to 60 mg/dL LOWHDL < 40 mg/dL HIGH Cholesterol in LDL Calc [Mas s/Vol]Ordered By: Sharmaine Wong on 12-25-2024 Cholesterol in LDL [Mass/Vol] Cholesterol in LDL [Mass/volume] in Serum or Plasma by calculation 0-100 [facility] Comment on above: LDL ATP III CLASSIFI CATIONLDL less than 100 mg/dL OptimalLDL 100-129 mg/dL Near or above optimalLDL 130-159 mg/dL Borderline highLDL 160-189 mg/dL HighLDL greater than 189 mg/dL Very high Cholesterol in VLDL Calc [Ma ss/Vol]Ordered By: Sharmaine Wong on 12-25-2024 Cholesterol in VLDL [Mass/Vol] Cholesterol in VLDL [Mass/volume] in Serum or Plasma by calculation [facility] Creatinine [Mass/volume] in UrineOrdered By: Sharmaine Wong on 12-25-2024 Creatinine (U) [Mass/Vol] Creatinine [Mass/volume] in Urine [facility] Comment on above: No reference range e stablished Globulin Calc (S) [Mass/Vol] Ordered By: Sharmaine Wong on 12-25-2024 Globulin (S) [Mass/Vol] Serum globulin measurement by calculation (mass/volume) [facility] Hepatic Panelon 12-25-2024 Albumin [Mass/Vol] 4.3 g/dL Normal 3.5-5.7 [facility] Comment on above: Order Comment: ELAINE WALTERS Performed By: #### H EPATIC, LIPID #### [address] Albumin/Globulin [Mass ratio] 1.8 {ratio} Normal [facility] Comment on above: Order Comment: [email or web address] Performed By: #### H EPATIC, LIPID #### [address] ALP [Catalytic activity/Vol] 72 U/L Normal 34-104 [facility] Comment on above: Order Comment: [email or web address] Performed By: #### H EPATIC, LIPID #### [address] ALT [Catalytic activity/Vol] 20 U/L Normal 7-52 [facility] Comment on above: Order Comment: [email or web address] Performed By: #### H EPATIC, LIPID #### [address] AST [Catalytic activity/Vol] 19 U/L Normal 13-39 [facility] Comment on above: Order Comment: [email or web address] Performed By: #### H EPATIC, LIPID #### [address] Bilirubin [Mass/Vol] 1.3 mg/dL High 0.3-1.0 [facility] Comment on above: Order Comment: [email or web address] Result Comment: Samp les from patients who have taken Naproxen have shown spurious elevation in Total Bilirubin levels. A metabolite of Naproxen, O-desmethylnaproxen, has been shown to interfere with the Jendrassik-Grof method for measuring Total Bilirubin. Performed By: #### H EPATIC, LIPID #### [address] Bilirubin,Indirect 1.1 mg/dL Normal [facility] Comment on above: Order Comment: [email or web address] Performed By: #### H EPATIC, LIPID #### [address] Bilirubin.indirect [Mass/Vol] 0.20 mg/dL High 0.03-0.18 [facility] Comment on above: Order Comment: [email or web address] Performed By: #### H EPATIC, LIPID #### [address] Globulin (S) [Mass/Vol] 2.4 g/dL Normal [facility] Comment on above: Order Comment: [email or web address] [email or web address] Performed By: #### H EPATIC, LIPID #### [address] Protein [Mass/Vol] 6.7 g/dL Normal 6.4-8.9 [facility] Comment on above: Order Comment: [email or web address] Performed By: #### H EPATIC, LIPID #### [address] Lipid Panelon 12-25-2024 Cholesterol [Mass/Vol] 164 mg/dL Normal 140-200 [facility] Comment on above: Order Comment: [email or web address] Result Comment: Chol less than 200 mg/dl low risk Chol 201-239 mg/dl borderline risk Chol 240 mg/dl and greater high risk Performed By: #### H EPATIC, LIPID #### [address] Cholesterol in HDL [Mass/Vol] 60 mg/dL Normal 23-92 [facility] Comment on above: Order Comment: [email or web address] Result Comment: HDL CHOL ATP-III CLASSIFICATION Cardiovascular Risk HDL > or equal to 60 mg/dL LOW HDL < 40 mg/dL HIGH Performed By: #### H EPATIC, LIPID #### [address] Cholesterol.total/Chol esterol in HDL [Mass ratio] 2.7 {ratio} Normal <5.0 [facility] Comment on above: Order Comment: [email or web address] Result Comment: PERF ORMED BY: [place] [address] PATHOLOGIST TRACK SERVICE PERSON HERNESTO SIMENTAL M.D. Performed By: #### H EPATIC, LIPID #### [address] LDL Cholesterol,Calculated 64 mg/dL Normal 0-100 [facility] Comment on above: Order Comment: [email or web address] Result Comment: LDL ATP III CLASSIFICATION LDL less than 100 mg/dL Optimal LDL 100-129 mg/dL Near or above optimal LDL 130-159 mg/dL Borderline high LDL 160-189 mg/dL High LDL greater than 189 mg/dL Very high Performed By: #### H EPATIC, LIPID #### [facility] [address] [place] [address] [place] Triglyceride w/Reflex 201 mg/dL High 0-149 [facility] Comment on above: Order Comment: ELAINE MENDENHALLKW Result Comment: TRIG ATP III CLASSIFICATION TRIG less than 150 mg/dL Normal TRIG 150-199 mg/dL Borderline high TRIG 200-500 mg/dL High TRIG greater than 500 mg/dL Very high Standard traceable to the Center for Disease Conrtrol and Prevention (CDC) test method. Performed By: #### H EPATIC, LIPID #### [address] VLDL CHOLESTEROL 40 mg/dL Normal [facility] Comment on above: Order Comment: ELAINE MENDENHALLKW Performed By: #### H EPATIC, LIPID #### [place] [address] [place] MicroAlb Creat Ratio,Uon Albumin DL <= 20 mg/L (U) [Mass/Vol] mg/dL Normal 0.0-1.8 [facility] Comment on above: Performed By: #### U RMACRERAT #### [place] [address] [place] Creatinine, Urine (Random) 46.00 mg/dL Normal [facility] Comment on above: Result Comment: No r eference range established Performed By: #### U RMACRERAT #### [address] Microalbumin/Creatinin e Ratio Not performed Normal 0.0-30.0 [facility] Comment on above: Result Comment: PERF ORMED BY: [place] [address] PATHOLOGIST TRACK SERVICE PERSON HERNESTO SIMENTAL M.D. Performed By: #### U RMACRERAT #### [facility] [address] Microalbumin [Mass/volume] i n UrineOrdered By: Sharmaine Wong on 12-25-2024 Albumin DL <= 20 mg/L (U) [Mass/Vol] Microalbumin [Mass/volume] in Urine 0.0-1.8 [facility] Protein [Mass/volume] in Ser um or PlasmaOrdered By: Sharmaine Wong on 12-25-2024 Protein [Mass/Vol] Protein [Mass/volume ] in Serum or Plasma 6.4-8.9 [facility] Serum or plasma albumin/glob ulin mass ratioOrdered By: Sharmaine Wong on 12-25-2024 Albumin/Globulin [Mass ratio] Serum or plasma albumin/globulin mass ratio [facility] Serum or plasma non-glucuron idated bilirubin measurement (mass/volume)Ordered By: Sharmaine Wong on 12-25-2024 Bilirubin.indirect [Mass/Vol] Serum or plasma non-glucuronidated bilirubin measurement (mass/volume) [facility] Serum or plasma total choles terol/high density lipoprotein (HDL) cholesterol mass ratOrdered By: Sharmaine Wong on 12-25-2024 Cholesterol.total/Chol esterol in HDL [Mass ratio] Serum or plasma total cholesterol/high density lipoprotein (HDL) cholesterol mass rat <5.0 [facility] Triglyceride [Mass/volume] i n Serum or PlasmaOrdered By: Sharmaine Wong on 12-25-2024 Triglyceride [Mass/Vol] Triglyceride [Mass/volume] in Serum or Plasma High 0-149 [facility] Comment on above: TRIG ATP III CLASSIF ICATIONTRIG less than 150 mg/dL NormalTRIG 150-199 mg/dL Borderline highTRIG 200-500 mg/dL High TRIG greater than 500 mg/dL Very highStandard traceable to the Center for Disease Conrtrol and Prevention (CDC) test method. Urine microalbumin/creatinin e mass ratioOrdered By: Sharmaine Wong on 12-25-2024 Albumin/Creatinine DL <= 20 mg/L (U) [Mass ratio] Urine microalbumin/creatinine mass ratio [facility] Comment on above: Test not performed ECG 12 lead ECGon 11-08-2024 ECG 12 lead ECG [facility] [place] [address] [place] [address] Electrocardiograph Report Signed Patient: Sarah Alfaro MR#: [id number] : 1950 Acct:[id number] Age/Sex: 74 / F ADM Date: 11/08/24 Loc: Room: Type: [facility] Attending Dr: Ambrosio Mcghee DPM Ordering Provider: Ambrosio Mcghee DPM Date of Service: 11/08/24/ ECG/ECG 12 [...] Anterior leads Confirmed by SIMRAN URBINA [facility], [place] ([id number]) on 11/09/2024 12:50:45 PM Referred By: Electronically Signed By: CARIDAD KHALIL MD [facility] Transcribed By: MUS Signed By Caridad Khalil MD, [facility] 11/09/24 1250 Normal [facility] Basic Metabolic Panelon 10-23 Anion gap [Moles/Vol] 9.1 mmol/L Normal 6.0-15.0 [facility] Comment on above: Performed By: #### B MP, CBC #### [facility] [address] [place] [address] [place] Calcium [Mass/Vol] 9.3 mg/dL Normal 8.6-10.3 [facility] Comment on above: Result Comment: PERF ORMED BY: [place] [address] PATHOLOGIST TRACK SERVICE PERSON HERNESTO SIMENTAL M.D. Performed By: #### B MP, CBC #### [facility] [address] [place] [address] [place] Chloride [Moles/Vol] 104 mmol/L Normal 98-107 [facility] Comment on above: Performed By: #### B MP, CBC #### [address] CO2 [Moles/Vol] 31.4 mmol/L High 21.0-31.0 [facility] Comment on above: Performed By: #### B MP, CBC #### [address] Creatinine [Mass/Vol] 1.02 mg/dL Normal 0.60-1.20 [facility] Comment on above: Performed By: #### B MP, CBC #### [address] Estimated GFR 58.451 mL/Min Normal [facility] Comment on above: Performed By: #### B MP, CBC #### [address] Glucose [Mass/Vol] 86 mg/dL Normal 70-100 [facility] Comment on above: Result Comment: [facility] Glucose Reference Range is dependent on time and content of last meal. Glucose of more than 200 mg/dL in a nonstressed, ambulatory subject supports the diagnosis of Diabetes Mellitus. ADA recommended reference range Performed By: #### B MP, CBC #### [address] Potassium [Moles/Vol] 4.5 mmol/L Normal 3.5-5.1 [facility] Comment on above: Performed By: #### B MP, CBC #### [place] [address] [place] Sodium [Moles/Vol] 140 mmol/L Normal 136-145 [facility] Comment on above: Performed By: #### B MP, CBC #### [address] Urea nitrogen [Mass/Vol] 21 mg/dL Normal 7-25 [facility] Comment on above: Performed By: #### B MP, CBC #### [address] Basic metabolic 1998 panelon 11-04-2024 Anion gap [Moles/Vol] 9.1 mmol/L 6.0 - 15.0 meq/L [facility] Calcium [Mass/Vol] 9.3 mg/dL 8.6 - 10. 3 mg/dL [facility] Chloride [Moles/Vol] 104 mmol/L 98 - 10 7 mmol/L [facility] CO2 [Moles/Vol] 31.4 mmol/L High 21.0 - 31.0 mmol/L [facility] Creatinine (U) [Mass/Vol] 1.02 mg/dL 0.60 - 1.20 mg/dL [facility] GFR/1.73 sq M.predicted MDRD (S/P/Bld) [Vol rate/Area] 58.451 mL/min/{1.73_m2} mL/Min [facility] Glucose [Mass/Vol] 86 mg/dL 70 - 100 mg/dL [facility] Comment on above: Random Glucose Refer ence Range is dependent on time and content of last meal. Glucose of more than 200 mg/dL in a nonstressed, ambulatory subject supports the diagnosis of Diabetes Mellitus. ADA recommended reference range Interpretation and review of laboratory results Abnormal [facility] Potassium [Moles/Vol] 4.5 mmol/L 3.5 - 5.1 mmol/L [facility] Sodium [Moles/Vol] 140 mmol/L 136 - 145 mmol/L [facility] Urea nitrogen [Mass/Vol] 21 mg/dL 7 - 25 mg/dL [facility] Basophils Auto (Bld) [#/Vol] Ordered By: Ambrosio Mcghee on 11-04-2024 Basophils (Bld) [#/Vol] Automated basophil count 0.0-0.2 [facility] Basophils/100 WBC Auto (Bld) Ordered By: Ambrosio Mcghee on 11-04-2024 Basophils/100 WBC (Bld) Automated basophil % . [facility] CBC W Auto Differential pane l (Bld)on 11-04-2024 Basophils (Bld) [#/Vol] 0.1 10*3/uL 0.0 - 0.2 10*3/uL [facility] Basophils/100 WBC Manual cnt (Syn fld) 1.2 % . [facility] Eosinophils (Bld) [#/Vol] 0.3 10*3/uL 0.0 - 0.45 10*3/uL [facility] Eosinophils/100 WBC Manual cnt (Syn fld) 3.6 % . [facility] Erythrocyte distribution width (RBC) [Ratio] 13.4 % 11.9 - 15.3 % [facility] Hematocrit (Bld) [Volume fraction] 42 % 34.0 - 46.4 % [facility] Hemoglobin (Bld) [Mass/Vol] 14.2 g/dL 11.8 - 15.4 g/dL [facility] Lymphocytes (Bld) [#/Vol] 2 10*3/uL 1.00 - 4.8 10*3/uL [facility] Lymphocytes/100 WBC Manual cnt (Syn fld) 24.4 % . [facility] MCH (RBC) [Entitic mass] 32 pg 24.7 - 34.3 pg [facility] MCHC (RBC) [Mass/Vol] 33.8 g/dL 32.0 - 35.0 g/dL [facility] MCV (RBC) [Entitic vol] 94.8 fL 80 - 100 fL [facility] Monocytes (Bld) [#/Vol] 0.8 10*3/uL 0.0 - 0.8 10*3/uL [facility] Monocytes+Macrophages/ 100 WBC Manual cnt (Syn fld) 9.4 % . [facility] Neutrophils (Bld) [#/Vol] 5.1 10*3/uL 1.8 - 7.7 10*3/uL [facility] Neutrophils/100 WBC Manual cnt (Syn fld) 61.4 % . [facility] NRBC 0.1 /100{WBC} 0 - 0.5 /100{WBC} [facility] Platelet mean volume (Bld) [Entitic vol] 9.5 fL 6.3 - 10.7 fL [facility] Platelets (Bld) [#/Vol] 253 10*3/uL 150 - 450 10*3/uL [facility] RBC LM.HPF (Urine sed) [#/Area] 4.43 10*6/uL 3.60 - 5.00 10*6/uL [facility] WBC (Bld) [#/Vol] 8.4 10*3/uL 3.8 - 11.6 10*3/uL [facility] WBC LM.HPF (Urine sed) [#/Area] 8.4 10*3/uL 3.8 - 11.6 10*3/uL [facility] Calcium [Mass/volume] in Ser um or PlasmaOrdered By: Ambrosio Mcghee on 11-04-2024 Calcium [Mass/Vol] Calcium [Mass/volume ] in Serum or Plasma 8.6-10.3 [facility] Carbon dioxide, total [Moles /volume] in Serum or PlasmaOrdered By: Ambrosio Mcghee on 11-04-2024 CO2 [Moles/Vol] Carbon dioxide, tota l [Moles/volume] in Serum or Plasma High 21.0-31.0 [facility] Chloride [Moles/volume] in S carlos or PlasmaOrdered By: Ambrosio Mcghee on 11-04-2024 Chloride [Moles/Vol] Chloride [Moles/vol ume] in Serum or Plasma 98-107 [facility] Complete Blood Count Auto Di ffon 11-04-2024 Basophils (Bld) [#/Vol] 0.1 10*3/uL Normal 0.0-0.2 [facility] Comment on above: Result Comment: PERF ORMED BY: [place] [address] PATHOLOGIST TRACK SERVICE PERSON HERNESTO SIMENTAL M.D. Performed By: #### B MP, CBC #### [address] Basophils/100 WBC (Bld) 1.2 % Normal . [facility] Comment on above: Performed By: #### B MP, CBC #### [facility] [address] [place] [address] [place] Eosinophils (Bld) [#/Vol] 0.3 10*3/uL Normal 0.0-0.45 [facility] Comment on above: Performed By: #### B MP, CBC #### [facility] [address] [place] [address] [place] Eosinophils/100 WBC (Bld) 3.6 % Normal . [facility] Comment on above: Performed By: #### B MP, CBC #### [address] Erythrocyte distribution width (RBC) [Ratio] 13.4 % Normal 11.9-15.3 [facility] Comment on above: Performed By: #### B MP, CBC #### [address] Hematocrit (Bld) [Volume fraction] 42.0 % Normal 34.0-46.4 [facility] Comment on above: Performed By: #### B MP, CBC #### [address] Hemoglobin (Bld) [Mass/Vol] 14.2 g/dL Normal 11.8-15.4 [facility] Comment on above: Performed By: #### B MP, CBC #### [address] Lymphocytes (Bld) [#/Vol] 2.0 10*3/uL Normal 1.00-4.8 [facility] Comment on above: Performed By: #### B MP, CBC #### [address] Lymphocytes/100 WBC (Bld) 24.4 % Normal . [facility] Comment on above: Performed By: #### B MP, CBC #### [address] MCH (RBC) [Entitic mass] 32.0 pg Normal 24.7-34.3 [facility] Comment on above: Performed By: #### B MP, CBC #### [address] MCV (RBC) [Entitic vol] 94.8 fL Normal 80-100 [facility] Comment on above: Performed By: #### B MP, CBC #### [address] Mean Corpuscular HGB Conc 33.8 g/dL Normal 32.0-35.0 [facility] Comment on above: Performed By: #### B MP, CBC #### [address] [place] [address] [place] Monocytes (Bld) [#/Vol] 0.8 10*3/uL Normal 0.0-0.8 [facility] Comment on above: Performed By: #### B MP, CBC #### [address] Monocytes/100 WBC (Bld) 9.4 % Normal . [facility] Comment on above: Performed By: #### B MP, CBC #### [address] Neutrophils (Bld) [#/Vol] 5.1 10*3/uL Normal 1.8-7.7 [facility] Comment on above: Performed By: #### B MP, CBC #### [address] Neutrophils/100 WBC (Bld) 61.4 % Normal . [facility] Comment on above: Performed By: #### B MP, CBC #### [address] NRBC% 0.1 /100{WBC} Normal 0-0.5 [facility] Comment on above: Performed By: #### B MP, CBC #### [address] Platelet mean volume (Bld) [Entitic vol] 9.5 fL Normal 6.3-10.7 [facility] Comment on above: Performed By: #### B MP, CBC #### [address] Platelets (Bld) [#/Vol] 253 10*3/uL Normal 150-450 [facility] Comment on above: Performed By: #### B MP, CBC #### [address] RBC (Bld) [#/Vol] 4.43 10*6/uL Normal 3.60-5.00 [facility] Comment on above: Performed By: #### B MP, CBC #### [address] WBC (Bld) [#/Vol] 8.4 10*3/uL Normal 3.8-11.6 [facility] Comment on above: Performed By: #### B MP, CBC #### [facility] [address] Creatinine [Mass/volume] in Serum or PlasmaOrdered By: Ambrosio Mcghee on 11-04-2024 Creatinine [Mass/Vol] Creatinine [Mass/v olume] in Serum or Plasma 0.60-1.20 [facility] Eosinophils Auto (Bld) [#/Vo l]Ordered By: Ambrosio Mcghee on 11-04-2024 Eosinophils (Bld) [#/Vol] Automated eosinophil count 0.0-0.45 [facility] Eosinophils/100 WBC Auto (Bl d)Ordered By: Ambrosio Mcghee on 11-04-2024 Eosinophils/100 WBC (Bld) Automated eosinophil % . [facility] Erythrocyte distribution wid th Auto (RBC) [Ratio]Ordered By: Ambrosio Mcghee on 11-04-2024 Erythrocyte distribution width (RBC) [Ratio] Erythrocyte distribution width [Ratio] by Automated count 11.9-15.3 [facility] Glucose [Mass/volume] in Ser um or PlasmaOrdered By: Ambrosio Mcghee on 11-04-2024 Glucose [Mass/Vol] Glucose [Mass/volume ] in Serum or Plasma 70-100 [facility] [facility] Comment on above: ADA recommended refe rence rangeRandom Glucose Reference Range is dependent on time and content of last meal. Glucose of more than 200 mg/dL in a nonstressed, ambulatory subject supports the diagnosis of Diabetes Mellitus. Hematocrit Auto (Bld) [Volum e fraction]Ordered By: Ambrosio Mcghee on 11-04-2024 Hematocrit (Bld) [Volume fraction] Hematocrit [Volume Fraction] of Blood by Automated count 34.0-46.4 [facility] Hemoglobin [Mass/volume] in BloodOrdered By: Ambrosio Mcghee on 11-04-2024 Hemoglobin (Bld) [Mass/Vol] Hemoglobin [Mass/volume] in Blood 11.8-15.4 [facility] Leukocytes [#/volume] correc alondra for nucleated erythrocytes in Blood by Automated counOrdered By: Ambrosio Mcghee on 11-04-2024 WBC corrected for nucl RBC Auto (Bld) [#/Vol] Leukocytes [#/volume] corrected for nucleated erythrocytes in Blood by Automated coun 3.8-11.6 [facility] Lymphocytes Auto (Bld) [#/Vo l]Ordered By: Ambrosio Mcghee on 11-04-2024 Lymphocytes (Bld) [#/Vol] Lymphocytes [#/volume] in Blood by Automated count 1.00-4.8 [facility] Lymphocytes/100 WBC Auto (Bl d)Ordered By: Ambrosio Mcghee on 11-04-2024 Lymphocytes/100 WBC (Bld) Lymphocytes/100 leukocytes in Blood by Automated count . [facility] MCH Auto (RBC) [Entitic mass ]Ordered By: Ambrosio Mcghee on 11-04-2024 MCH (RBC) [Entitic mass] MCH [Entitic mass] by Automated count 24.7-34.3 [facility] MCHC Auto (RBC) [Mass/Vol]Or dered By: Ambrosio Mcghee on 11-04-2024 MCHC (RBC) [Mass/Vol] MCHC [Mass/volume] by Automated count 32.0-35.0 [facility] MCV Auto (RBC) [Entitic vol] Ordered By: Ambrosio Mcghee on 11-04-2024 MCV (RBC) [Entitic vol] MCV [Entitic volume] by Automated count 80-100 [facility] Monocytes Auto (Bld) [#/Vol] Ordered By: Ambrosio Mcghee on 11-04-2024 Monocytes (Bld) [#/Vol] Automated blood monocyte count 0.0-0.8 [facility] Monocytes/100 WBC Auto (Bld) Ordered By: Ambrosio Mcghee on 11-04-2024 Monocytes/100 WBC (Bld) Automated monocyte % . [facility] Neutrophils Auto (Bld) [#/Vo l]Ordered By: Ambrosio Mcghee on 11-04-2024 Neutrophils (Bld) [#/Vol] Neutrophils [#/volume] in Blood by Automated count 1.8-7.7 [facility] Neutrophils/100 WBC Auto (Bl d)Ordered By: Ambrosio Mcghee on 11-04-2024 Neutrophils/100 WBC (Bld) Automated neutrophil % . [facility] No Panel InformationOrdered By: Ambrosio Mcghee on 11-04-2024 Estimated GFR (CKD-EPI) 58.451 mL/Min [facility] Creatinine Clearance (Chem N/A [facility] Nucleated erythrocytes [Pres ence] in Blood by Automated countOrdered By: Ambrosio Mcghee on 11-04-2024 Nucleated RBC Auto Ql (Bld) Nucleated erythrocytes [Presence] in Blood by Automated count 0-0.5 [facility] Platelet mean volume Auto (B ld) [Entitic vol]Ordered By: Ambrosio Mcghee on 11-04-2024 Platelet mean volume (Bld) [Entitic vol] Platelet mean volume [Entitic volume] in Blood by Automated count 6.3-10.7 [facility] Platelets Auto (Bld) [#/Vol] Ordered By: Ambrosio Mcghee on 11-04-2024 Platelets (Bld) [#/Vol] Platelets [#/volume] in Blood by Automated count 150-450 [facility] Potassium [Moles/volume] in Serum or PlasmaOrdered By: Ambrosio Mcghee on 11-04-2024 Potassium [Moles/Vol] Potassium [Moles/v olume] in Serum or Plasma 3.5-5.1 [facility] RBC Auto (Bld) [#/Vol]Ordere d By: Ambrosio Mcghee on 11-04-2024 RBC (Bld) [#/Vol] Erythrocytes [#/volu me] in Blood by Automated count 3.60-5.00 [facility] Serum or plasma anion gap de terminationOrdered By: Ambrosio Mcghee on 11-04-2024 Anion gap [Moles/Vol] Serum or plasma an ion gap determination 6.0-15.0 [facility] Sodium [Moles/volume] in Ser um or PlasmaOrdered By: Ambrosio Mcghee 11-04-2024 Sodium [Moles/Vol] Sodium [Moles/volume ] in Serum or Plasma 136-145 [facility] Urea nitrogen [Mass/volume] in Serum or PlasmaOrdered By: Ambrosio Mcghee on 11-04-2024 Urea nitrogen [Mass/Vol] Urea nitrogen [Mass/volume] in Serum or Plasma 7-25 [facility] WBC Auto (Bld) [#/Vol]Ordere d By: Ambrosio Mcghee on 11-04-2024 WBC (Bld) [#/Vol] Leukocytes [#/volume ] in Blood by Automated count 3.8-11.6 [facility] - Hematology and Cell countson 08-30-2024 HbA1c (Bld) [Mass fraction] 6.2 % [facility] No Panel Informationon 08-30 [facility] Basophils Auto (Bld) [#/Vol] Ordered By: Marvin Iglesias on 05-05-2024 Basophils (Bld) [#/Vol] 0.1 10*3/uL 0.0-0.2 [facility] Basophils/100 WBC Auto (Bld) Ordered By: Marvin Iglesias on 05-05-2024 Basophils/100 WBC (Bld) 0.8 % . [facility] Calcium [Mass/volume] in Ser um or PlasmaOrdered By: Marvin Iglesias on 05-05-2024 Calcium [Mass/Vol] 8.6 mg/dL 8.6-10.3 [facility] Carbon dioxide, total [Moles /volume] in Serum or PlasmaOrdered By: Marvin Iglesias on 05-05-2024 CO2 [Moles/Vol] 27.8 mmol/L 21.0-31.0 [facility] Chloride [Moles/volume] in S carlos or PlasmaOrdered By: Marvin Iglesias on 05-05-2024 Chloride [Moles/Vol] 104 mmol/L 98-107 [facility] Cholesterol [Mass/volume] in Serum or PlasmaOrdered By: Marvin Iglesias on 05-05-2024 Cholesterol [Mass/Vol] 162 mg/dL 140-200 [facility] Comment on above: Chol less than 200 m g/dl low riskChol 201-239 mg/dl borderline riskChol 240 mg/dl and greater high risk Cholesterol in LDL Calc [Mas s/Vol]Ordered By: Marvin Iglesias on 05-05-2024 Cholesterol in LDL [Mass/Vol] 64 mg/dL 0-100 [facility] Comment on above: LDL ATP III CLASSIFI CATIONLDL less than 100 mg/dL OptimalLDL 100-129 mg/dL Near or above optimalLDL 130-159 mg/dL Borderline highLDL 160-189 mg/dL HighLDL greater than 189 mg/dL Very high Cholesterol in VLDL Calc [Ma ss/Vol]Ordered By: Marvin Iglesias on 05-05-2024 Cholesterol in VLDL [Mass/Vol] 33 mg/dL [facility] Creatinine [Mass/volume] in Serum or PlasmaOrdered By: Marvin Iglesias on 05-05-2024 Creatinine [Mass/Vol] 0.86 mg/dL 0.60-1.[address] [facility] Eosinophils Auto (Bld) [#/Vo l]Ordered By: Marvin Iglesias on 05-05-2024 Eosinophils (Bld) [#/Vol] 0.2 10*3/uL 0.0-0.45 [facility] Eosinophils/100 WBC Auto (Bl d)Ordered By: Marvin Iglesias on 05-05-2024 Eosinophils/100 WBC (Bld) 1.4 % . [facility] Erythrocyte distribution wid th Auto (RBC) [Ratio]Ordered By: Marvin Iglesias on 05-05-2024 Erythrocyte distribution width (RBC) [Ratio] 12.9 % 11.9-15.3 [facility] Glucose [Mass/volume] in Ser um or PlasmaOrdered By: Marvin Iglesias on 05-05-2024 Glucose [Mass/Vol] 95 mg/dL 70-100 [facility] Comment on above: ADA recommended refe rence rangeRandom Glucose Reference Range is dependent on time and content of last meal. Glucose of more than 200 mg/dL in a nonstressed, ambulatory subject supports the diagnosis of Diabetes Mellitus. Glucose mean value [Mass/vol ume] in Blood Estimated from glycated hemoglobinOrdered By: Marvin Iglesias on 05-05-2024 Average glucose Estimated from glycated hemoglobin (Bld) [Mass/Vol] 137 mg/dL [facility] Hematocrit Auto (Bld) [Volum e fraction]Ordered By: Marvin Iglesias on 05-05-2024 Hematocrit (Bld) [Volume fraction] 42.0 % 34.0-46.4 [facility] Hemoglobin A1c percentageOrd ered By: Marvin Iglesias on 05-05-2024 HbA1c (Bld) [Mass fraction] 6.4 % High 4.3-5.6 [facility] Comment on above: Increased risk for d iabetes: 5.7 - 6.4diabetes: >6.4glycemic control for adults with diabetes: <7.0 Hemoglobin [Mass/volume] in BloodOrdered By: Marvin Iglesias on 05-05-2024 Hemoglobin (Bld) [Mass/Vol] 14.3 g/dL 11.8-15.4 [facility] Leukocytes [#/volume] correc alondra for nucleated erythrocytes in Blood by Automated counOrdered By: Marvin Iglesias on 05-05-2024 WBC corrected for nucl RBC Auto (Bld) [#/Vol] 13.7 10*3/uL High 3.8-11.6 [facility] Lymphocytes Auto (Bld) [#/Vo l]Ordered By: Marvin Iglesias on 05-05-2024 Lymphocytes (Bld) [#/Vol] 2.7 10*3/uL 1.00-4.8 [facility] Lymphocytes/100 WBC Auto (Bl d)Ordered By: Marvin Iglesias on 05-05-2024 Lymphocytes/100 WBC (Bld) 19.5 % . [facility] MCH Auto (RBC) [Entitic mass ]Ordered By: Marvin Iglesias on 05-05-2024 MCH (RBC) [Entitic mass] 32.2 pg 24.7-34.3 [facility] MCHC Auto (RBC) [Mass/Vol]Or dered By: Marvin Iglesias on 05-05-2024 MCHC (RBC) [Mass/Vol] 34.1 g/dL 32.0-35.[address] [facility] MCV Auto (RBC) [Entitic vol] Ordered By: Marvin Iglesias on 05-05-2024 MCV (RBC) [Entitic vol] 94.3 fL 80-100 [facility] Monocytes Auto (Bld) [#/Vol] Ordered By: Marvin Iglesias on 05-05-2024 Monocytes (Bld) [#/Vol] 0.8 10*3/uL 0.0-0.8 [facility] Monocytes/100 WBC Auto (Bld) Ordered By: Marvin Iglesias on 05-05-2024 Monocytes/100 WBC (Bld) 5.9 % . [facility] Neutrophils Auto (Bld) [#/Vo l]Ordered By: Marvin Iglesias on 05-05-2024 Neutrophils (Bld) [#/Vol] 9.9 10*3/uL High 1.8-7.7 [facility] Neutrophils/100 WBC Auto (Bl d)Ordered By: Marvin Iglesias on 05-05-2024 Neutrophils/100 WBC (Bld) 72.4 % . [facility] No Panel InformationOrdered By: Marvin Iglesias on 05-05-2024 Estimated GFR (CKD-EPI) > 60.0 mL/Min [facility] Creatinine Clearance (Chem 54.46 [facility] Nucleated erythrocytes [Pres ence] in Blood by Automated countOrdered By: Marvin Iglesias on 05-05-2024 Nucleated RBC Auto Ql (Bld) 0.0 /100{WBC} 0-0.5 [facility] Platelet mean volume Auto (B ld) [Entitic vol]Ordered By: Marvin Iglesias on 05-05-2024 Platelet mean volume (Bld) [Entitic vol] 8.4 fL 6.3-10.7 [facility] Platelets Auto (Bld) [#/Vol] Ordered By: Marvin Iglesias on 05-05-2024 Platelets (Bld) [#/Vol] 221 10*3/uL 150-450 [facility] Potassium [Moles/volume] in Serum or PlasmaOrdered By: Marvin Iglesias on 05-05-2024 Potassium [Moles/Vol] 4.0 mmol/L 3.5-5.[address] [facility] RBC Auto (Bld) [#/Vol]Ordere d By: Marvin Iglesias on 05-05-2024 RBC (Bld) [#/Vol] 4.45 10*6/uL 3.60-5.00 [facility] Serum or plasma anion gap de terminationOrdered By: Marvin Iglesias on 05-05-2024 Anion gap [Moles/Vol] 11.2 mmol/L 6.0-15.0 [facility] Serum or plasma high density lipoprotein (HDL) cholesterol measurementOrdered By: Marvin Iglesias on 05-05-2024 Cholesterol in HDL [Mass/Vol] 65 mg/dL 23- [facility] Comment on above: HDL CHOL ATP-III CLA SSIFICATION Cardiovascular RiskHDL > or equal to 60 mg/dL LOWHDL < 40 mg/dL HIGH Serum or plasma total choles terol/high density lipoprotein (HDL) cholesterol mass ratOrdered By: Marvin Iglesias on 05-05-2024 Cholesterol.total/Chol esterol in HDL [Mass ratio] 2.5 {ratio} <5.0 [facility] Sodium [Moles/volume] in Ser um or PlasmaOrdered By: Marvin Iglesias on 05-05-2024 Sodium [Moles/Vol] 139 mmol/L 136-145 [facility] Triglyceride [Mass/volume] i n Serum or PlasmaOrdered By: Marvin Iglesias on 05-05-2024 Triglyceride [Mass/Vol] 165 mg/dL High 0-149 [facility] Comment on above: TRIG ATP III CLASSIF ICATIONTRIG less than 150 mg/dL NormalTRIG 150-199 mg/dL Borderline highTRIG 200-500 mg/dL High TRIG greater than 500 mg/dL Very highStandard traceable to the Center for Disease Conrtrol and Prevention (CDC) test method. Urea nitrogen [Mass/volume] in Serum or PlasmaOrdered By: Marvin Iglesias on 05-05-2024 Urea nitrogen [Mass/Vol] 19 mg/dL 7-25 [facility] WBC Auto (Bld) [#/Vol]Ordere d By: Marvin Iglesias on 05-05-2024 WBC (Bld) [#/Vol] 13.7 10*3/uL High 3.8-11.6 [facility] Activated partial thrombopla stin time (aPTT) in platelet poor plasma by coagulation aOrdered By: Meme Montelongo on 05-04-2024 aPTT Coag (PPP) [Time] 25.5 s 25.1-36.5 [facility] Comment on above: A hematocrit value g reater than 55% may lead to inaccurate results in coagulation testing. Patients having hematocrit values >55% require a special collection tube for coagulation studies. Please contact the laboratory at [phone] for redraw instructions. Alanine aminotransferase [En zymatic activity/volume] in Serum or PlasmaOrdered By: Meme Montelongo on 05-04-2024 ALT [Catalytic activity/Vol] 53 U/L High 7-52 [facility] Albumin [Mass/volume] in Ser um or Plasma by Bromocresol green (BCG) dye binding methoOrdered By: Meme Montelongo on 05-04-2024 Albumin BCG dye [Mass/Vol] 4.2 g/dL 3.5-5.7 [facility] Alkaline phosphatase [Enzyma tic activity/volume] in Serum or PlasmaOrdered By: Meme Montelongo on 05-04-2024 ALP [Catalytic activity/Vol] 61 U/L 34-104 [facility] Aspartate aminotransferase [ Enzymatic activity/volume] in Serum or PlasmaOrdered By: Meme Montelongo on 05-04-2024 AST [Catalytic activity/Vol] 35 U/L 13-39 [facility] Basophils Auto (Bld) [#/Vol] Ordered By: Meme Montelongo on 05-04-2024 Basophils (Bld) [#/Vol] 0.1 10*3/uL 0.0-0.2 [facility] Basophils/100 WBC Auto (Bld) Ordered By: Meme Montelongo on 05-04-2024 Basophils/100 WBC (Bld) 0.9 % . [facility] Bilirubin Test strip Ql (U)O rdered By: Meme Montelongo on 05-04-2024 Bilirubin Ql (U) Negative Negative [facility] Bilirubin.total [Mass/volume ] in Serum or PlasmaOrdered By: Meme Montelongo on 05-04-2024 Bilirubin [Mass/Vol] 0.7 mg/dL 0.3-1.0 [facility] Blood carbon dioxide, total measurement by calculation (moles/volume)Ordered By: Meme Montelongo on 05-04-2024 CO2 Calc (Bld) [Moles/Vol] 28 mmol/L 23-29 [facility] COVID CepheidOrdered By: Gael Montelongo on 05-04-2024 SARS-CoV-2 (COVID-19) Ab IA Ql Negative Negative [facility] Comment on above: This is a duplicate [employer] Xpert Xpress CoV-2/Flu/RSV Plus RNA by RT-PCR result to be used for statistical tracking purpose only. SARS-CoV-2 (COVID-19) RNA COBY+probe Ql (Unsp spec) [facility] CT biopsyOrdered By: Meme Montelongo on 05-04-2024 Hematocrit (Bld) [Volume fraction] 47.0 % 38.0-51.0 [facility] Calcium [Mass/volume] in Ser um or PlasmaOrdered By: Meme Montelongo on 05-04-2024 Calcium [Mass/Vol] 9.2 mg/dL 8.6-10.3 [facility] Carbon dioxide, total [Moles /volume] in Serum or PlasmaOrdered By: Meme Montelongo on 05-04-2024 CO2 [Moles/Vol] 23.5 mmol/L 21.0-31.0 [facility] Chloride (Bld) [Moles/Vol]Or dered By: Meme Montelongo on 05-04-2024 Chloride [Moles/Vol] 104.0 mmol/L 98-109 [facility] Chloride [Moles/volume] in S carlos or PlasmaOrdered By: Meme Montelongo on 05-04-2024 Chloride [Moles/Vol] 105 mmol/L 98-107 [facility] Color Auto (U)Ordered By: Kaveh Montelongo on 05-04-2024 Color (U) Yellow Yellow [facility] Creatine kinase [Enzymatic a ctivity/volume] in Serum or PlasmaOrdered By: Meme Montelongo on 05-04-2024 CK [Catalytic activity/Vol] 65 U/L 30-223 [facility] Creatinine (Bld) [Mass/Vol]O rdered By: Meme Montelongo on 05-04-2024 Creatinine [Mass/Vol] 1.1 mg/dL 0.6-1.[address] [facility] Comment on above: ER/ESD physician is notified/shown all ISTAT results.Critical values may be confirmed by laboratory testing ifdeemed necessary by ER attending doctor. Creatinine [Mass/volume] in Serum or PlasmaOrdered By: Meme Montelongo on 05-04-2024 Creatinine [Mass/Vol] 1.14 mg/dL 0.60-1.[address] [facility] Eosinophils Auto (Bld) [#/Vo l]Ordered By: Meme Montelongo on 05-04-2024 Eosinophils (Bld) [#/Vol] 0.3 10*3/uL 0.0-0.45 [facility] Eosinophils/100 WBC Auto (Bl d)Ordered By: Meme Montelongo on 05-04-2024 Eosinophils/100 WBC (Bld) 1.9 % . [facility] Erythrocyte distribution wid th Auto (RBC) [Ratio]Ordered By: Meme Montelongo on 05-04-2024 Erythrocyte distribution width (RBC) [Ratio] 13.0 % 11.9-15.3 [facility] Globulin Calc (S) [Mass/Vol] Ordered By: Meme Montelongo on 05-04-2024 Globulin (S) [Mass/Vol] 2.7 g/dL [facility] Glucose Glucometer (BldC) [M ass/Vol]Ordered By: Meme Montelongo on 05-04-2024 Glucose [Mass/Vol] 135 mg/dL High 70-105 [facility] Glucose [Mass/Vol] 127 mg/dL [facility] Comment on above: Random Glucose Refer ence Range is dependent on time and content of last meal. Glucose of more than 200 mg/dL in a nonstressed, ambulatory subject supports the diagnosis of Diabetes Mellitus. Glucose [Mass/volume] in Ser um or PlasmaOrdered By: Meme Montelongo on 05-04-2024 Glucose [Mass/Vol] 133 mg/dL High 70-100 [facility] Comment on above: ADA recommended refe rence rangeRandom Glucose Reference Range is dependent on time and content of last meal. Glucose of more than 200 mg/dL in a nonstressed, ambulatory subject supports the diagnosis of Diabetes Mellitus. Hematocrit Auto (Bld) [Volum e fraction]Ordered By: Meme Montelongo on 05-04-2024 Hematocrit (Bld) [Volume fraction] 42.0 % 34.0-46.4 [facility] Hemoglobin Calc (Bld) [Mass/ Vol]Ordered By: Meme Montelongo on 05-04-2024 Hemoglobin (Bld) [Mass/Vol] 16.0 g/dL 12.0-17.0 [facility] Hemoglobin [Mass/volume] in BloodOrdered By: Meme Montelongo on 05-04-2024 Hemoglobin (Bld) [Mass/Vol] 14.4 g/dL 11.8-15.4 [facility] INR in Platelet poor plasma by Coagulation assayOrdered By: Meme Montelongo on 05-04-2024 INR Coag (PPP) [Relative time] 0.9 {INR} [facility] Comment on above: INR Therapeutic Rang [...] with mechanical heart valves: 3 - 4.5 Ketones Auto test strip (U) [Mass/Vol]Ordered By: Meme Montelongo on 05-04-2024 Ketones (U) [Mass/Vol] Trace High Negative [facility] Lactate [Moles/volume] in Se rum or PlasmaOrdered By: Meme Montelongo on 05-04-2024 Lactate [Moles/Vol] 1.3 mmol/L 0.5-2.2 [facility] Leukocytes [#/volume] correc alondra for nucleated erythrocytes in Blood by Automated counOrdered By: Meme Montelongo on 05-04-2024 WBC corrected for nucl RBC Auto (Bld) [#/Vol] 16.4 10*3/uL High 3.8-11.6 [facility] Lymphocytes Auto (Bld) [#/Vo l]Ordered By: Meme Montelongo on 05-04-2024 Lymphocytes (Bld) [#/Vol] 2.2 10*3/uL 1.00-4.8 [facility] Lymphocytes/100 WBC Auto (Bl d)Ordered By: Meme Montelongo on 05-04-2024 Lymphocytes/100 WBC (Bld) 13.3 % . [facility] MCH Auto (RBC) [Entitic mass ]Ordered By: Meme Montelongo on 05-04-2024 MCH (RBC) [Entitic mass] 32.2 pg 24.7-34.3 [facility] MCHC Auto (RBC) [Mass/Vol]Or dered By: Meme Montelongo on 05-04-2024 MCHC (RBC) [Mass/Vol] 34.2 g/dL 32.0-35.[address] [facility] MCV Auto (RBC) [Entitic vol] Ordered By: Meme Montelongo on 05-04-2024 MCV (RBC) [Entitic vol] 94.4 fL 80-100 [facility] Monocyte distribution width [Entitic volume] in Blood by AutomatedOrdered By: Meme Montelongo on 05-04-2024 Monocyte distribution width Auto (Bld) [Entitic vol] 17.82 % 0.00-20.00 [facility] Monocytes Auto (Bld) [#/Vol] Ordered By: Meme Montelongo on 05-04-2024 Monocytes (Bld) [#/Vol] 1.2 10*3/uL High 0.0-0.8 [facility] Monocytes/100 WBC Auto (Bld) Ordered By: Meme Montelongo on 05-04-2024 Monocytes/100 WBC (Bld) 7.6 % . [facility] Neutrophils Auto (Bld) [#/Vo l]Ordered By: Meme Montelongo on 05-04-2024 Neutrophils (Bld) [#/Vol] 12.5 10*3/uL High 1.8-7.7 [facility] Neutrophils/100 WBC Auto (Bl d)Ordered By: Meme Montelongo on 05-04-2024 Neutrophils/100 WBC (Bld) 76.3 % . [facility] Nitrite Test strip Ql (U)Ord ered By: Meme Montelongo on 05-04-2024 Nitrite Ql (U) Negative Negative [facility] No Panel InformationOrdered By: Meme Montelongo on 05-04-2024 Estimated GFR (CKD-EPI) 51.148 mL/Min [facility] Creatinine Clearance (Chem 40.72 [facility] Nucleated erythrocytes [Pres ence] in Blood by Automated countOrdered By: Meme Montelongo on 05-04-2024 Nucleated RBC Auto Ql (Bld) 0.1 /100{WBC} 0-0.5 [facility] Platelet mean volume Auto (B ld) [Entitic vol]Ordered By: Meme Montelongo on 05-04-2024 Platelet mean volume (Bld) [Entitic vol] 8.2 fL 6.3-10.7 [facility] Platelets Auto (Bld) [#/Vol] Ordered By: Meme Montelongo on 05-04-2024 Platelets (Bld) [#/Vol] 264 10*3/uL 150-450 [facility] Potassium (Bld) [Moles/Vol]O rdered By: Meme Montelongo on 05-04-2024 Potassium [Moles/Vol] 4.5 mmol/L 3.5-4.[address] [facility] Potassium [Moles/volume] in Serum or PlasmaOrdered By: Meme Montelongo on 05-04-2024 Potassium [Moles/Vol] 4.5 mmol/L 3.5-5.[address] [facility] Protein Auto test strip (U) [Mass/Vol]Ordered By: Meme Montelongo on 05-04-2024 Protein (U) [Mass/Vol] Negative Negative [facility] Protein [Mass/volume] in Ser um or PlasmaOrdered By: Meme Montelongo on 05-04-2024 Protein [Mass/Vol] 6.9 g/dL 6.4-8.9 [facility] Prothrombin time (PT)Ordered By: Meme Montelongo on 05-04-2024 PT Coag (PPP) [Time] 10.8 s 9.0-12.9 [facility] Comment on above: A hematocrit value g reater than 55% may lead to inaccurate results in coagulation testing. Patients having hematocrit values >55% require a special collection tube for coagulation studies. Please contact the laboratory at [phone] for redraw instructions. RBC Auto (Bld) [#/Vol]Ordere d By: Meme Montelongo on 05-04-2024 RBC (Bld) [#/Vol] 4.45 10*6/uL 3.60-5.00 [facility] Serum or plasma albumin/glob ulin mass ratioOrdered By: Meme Montelongo on 05-04-2024 Albumin/Globulin [Mass ratio] 1.6 {ratio} [facility] Serum or plasma anion gap de terminationOrdered By: Meme Montelongo on 05-04-2024 Anion gap [Moles/Vol] 12.0 mmol/L 6.0-15.0 [facility] Sodium (Bld) [Moles/Vol]Orde red By: Meme Montelongo on 05-04-2024 Sodium [Moles/Vol] 138 mmol/L 138-146 [facility] Sodium [Moles/volume] in Ser um or PlasmaOrdered By: Meme Montelongo on 05-04-2024 Sodium [Moles/Vol] 136 mmol/L 136-145 [facility] Specific gravity Auto test s trip (U) [Rel density]Ordered By: Meme Montelongo on 05-04-2024 Specific gravity (U) [Rel density] > 1.050 High 1.001-1.030 [facility] Troponin I.cardiac [Mass/vol ume] in Serum or Plasma by Detection limit <= 0.01 ng/Ordered By: Meme Montelongo on 05-04-2024 Troponin I.cardiac DL <= 0.01 ng/mL [Mass/Vol] 3.6 pg/mL 0.0-15.0 [facility] Urea nitrogen (Bld) [Mass/Vo l]Ordered By: Meme Montelongo on 05-04-2024 Urea nitrogen [Mass/Vol] 27 mg/dL High 8-26 [facility] Urea nitrogen [Mass/volume] in Serum or PlasmaOrdered By: Meme Montelongo on 05-04-2024 Urea nitrogen [Mass/Vol] 26 mg/dL High 7-25 [facility] Urine clarity by refractomet ry automatedOrdered By: Meme Montelongo on 05-04-2024 Clarity Refractometry automated (U) Clear Clear [facility] Urine culture routineOrdered By: Meme Montelongo on 05-04-2024 Bacteria identified Cx Nom (U) 2 Days [facility] Urine glucose measurement by automated test strip (mass/volume)Ordered By: Meme Montelongo on 05-04-2024 Glucose Auto test strip (U) [Mass/Vol] Normal mg/dL Normal [facility] Urine hemoglobin detection b y automated test stripOrdered By: Meme Montelongo on 05-04-2024 Hemoglobin Auto test strip Ql (U) Negative Negative [facility] Urine leukocyte esterase det ection by automated test stripOrdered By: Meme Montelongo on 05-04-2024 Leukocyte esterase Auto test strip Ql (U) Negative Negative [facility] Urobilinogen Auto test strip (U) [Mass/Vol]Ordered By: Meme Montelongo on 05-04-2024 Urobilinogen (U) [Mass/Vol] Normal mg/dL Normal [facility] WBC Auto (Bld) [#/Vol]Ordere d By: Meme Montelongo on 05-04-2024 WBC (Bld) [#/Vol] 16.4 10*3/uL High 3.8-11.6 [facility] Whole blood ionized calcium measurement (moles/volume)Ordered By: Meme Montelongo on 05-04-2024 Calcium.ionized (Bld) [Moles/Vol] 1180 mmol/L 1.12-1.32 [facility] pH Auto test strip (U)Ordere d By: Meme Montelongo on 05-04-2024 pH (U) 5.5 [pH] 5.0-9.0 [facility] [facility]29-[facility]24 Screens [id number] Normal [facility] Ambulatory Visit Summaryon 0 03-28-2024 Ambulatory Visit [...] Schedule the Following Appointments Follow Up with CARLA JON PA-C, URL When: Comments: 18 mos (no labs) Where: [address] [place] [address] [phone] Medications What How Much When Instructions Unchanged [...] 4. R (more content not included)... Normal [facility] Patient Educationon 03-28-20 Patient Education Obstetrics and [...] provider. Document Revised: 02/17/2022 Document Reviewed: 02/17/2022 [email or web address] Patient Education ? 2022 [employer] [facility] Urology Office/Clinic Noteon 03-28-2024 Urology Office/Clinic Note [...] Contact Information LEIGH LIZ, CARLA Lopes, URL [address] [place] [address] [phone] Additional Instructions: 18 mos (no labs) Patient Education Kegel Exercises Documentation recorded by the scribvernon Arredondo accurately reflects the services(s) I performed and decisions made by me. Authenticated by Carla Jon PA-C on 03/28/2024 12:40:48. IKiara, personally scribed for Carla Jon PA-C on [...] influenza virus (more content not included)... Normal [facility] Comment on above: Result Comment: Elec tronically Signed By: CARLA JON PA-C\.br\Date and Time Signed: 03/28/24 12:43 EDT\.br\Electronically Co-Signed By: Kiara Arredondo\.br\Date and Time Co-Signed: 03/28/24 11:32 EDT POCT Glycated hemoglobin, to kim 12-01-2023 HbA1c (Bld) [Mass fraction] 5.9 % [facility] Alanine aminotransferase [En zymatic activity/volume] in Serum or PlasmaOrdered By: Sharmaine Wong on 09-18-2023 ALT [Catalytic activity/Vol] 25 U/L 7-52 [facility] Albumin [Mass/volume] in Ser um or Plasma by Bromocresol green (BCG) dye binding methoOrdered By: Sharmaine Wong on 09-18-2023 Albumin BCG dye [Mass/Vol] 4.4 g/dL 3.5-5.7 [facility] Alkaline phosphatase [Enzyma tic activity/volume] in Serum or PlasmaOrdered By: Sharmaine Wong on 09-18-2023 ALP [Catalytic activity/Vol] 56 U/L 34-104 [facility] Aspartate aminotransferase [ Enzymatic activity/volume] in Serum or PlasmaOrdered By: Sharmaine Wong on 09-18-2023 AST [Catalytic activity/Vol] 24 U/L 13-39 [facility] Bilirubin.total [Mass/volume ] in Serum or PlasmaOrdered By: Sharmaine Wong on 09-18-2023 Bilirubin [Mass/Vol] 1.2 mg/dL 0.3-1.0 [facility] Calcium [Mass/volume] in Ser um or PlasmaOrdered By: Sharmaine Wong on 09-18-2023 Calcium [Mass/Vol] 9.5 mg/dL 8.6-10.3 [facility] Carbon dioxide, total [Moles /volume] in Serum or PlasmaOrdered By: Sharmaine Wong on 09-18-2023 CO2 [Moles/Vol] 32.1 mmol/L 21.0-31.0 [facility] Chloride [Moles/volume] in S carlos or PlasmaOrdered By: Sharmaine Wong on 09-18-2023 Chloride [Moles/Vol] 104 mmol/L 98-107 [facility] Cholesterol [Mass/volume] in Serum or PlasmaOrdered By: Sharmaine Wong on 09-18-2023 Cholesterol [Mass/Vol] 138 mg/dL 140-200 [facility] Comment on above: Chol less than 200 m g/dl low riskChol 201-239 mg/dl borderline riskChol 240 mg/dl and greater high risk Cholesterol in LDL Calc [Mas s/Vol]Ordered By: Sharmaine Wong on 09-18-2023 Cholesterol in LDL [Mass/Vol] 53 mg/dL 0-100 [facility] Comment on above: LDL ATP III CLASSIFI CATIONLDL less than 100 mg/dL OptimalLDL 100-129 mg/dL Near or above optimalLDL 130-159 mg/dL Borderline highLDL 160-189 mg/dL HighLDL greater than 189 mg/dL Very high Cholesterol in VLDL Calc [Ma ss/Vol]Ordered By: Sharmaine Wong on 09-18-2023 Cholesterol in VLDL [Mass/Vol] 27 mg/dL [facility] Creatinine [Mass/volume] in Serum or PlasmaOrdered By: Sharmaine Wong on 09-18-2023 Creatinine [Mass/Vol] 1.12 mg/dL 0.60-1.[address] [facility] Creatinine [Mass/volume] in UrineOrdered By: Sharmaine Wong on 09-18-2023 Creatinine (U) [Mass/Vol] 282.0 mg/dL 11.0-20.0 [facility] Erythrocyte distribution wid th Auto (RBC) [Ratio]Ordered By: Sharmaine Wong on 09-18-2023 Erythrocyte distribution width (RBC) [Ratio] 12.9 % 11.9-15.3 [facility] Globulin Calc (S) [Mass/Vol] Ordered By: Sharmaine Wong on 09-18-2023 Globulin (S) [Mass/Vol] 2.4 g/dL [facility] Glucose [Mass/volume] in Ser um or PlasmaOrdered By: Sharmaine Wong on 09-18-2023 Glucose [Mass/Vol] 125 mg/dL 70-100 [facility] Comment on above: ADA recommended refe rence rangeRandom Glucose Reference Range is dependent on time and content of last meal. Glucose of more than 200 mg/dL in a nonstressed, ambulatory subject supports the diagnosis of Diabetes Mellitus. Glucose mean value [Mass/vol ume] in Blood Estimated from glycated hemoglobinOrdered By: Sharmaine Wong on 09-18-2023 Average glucose Estimated from glycated hemoglobin (Bld) [Mass/Vol] 154 mg/dL [facility] Hematocrit Auto (Bld) [Volum e fraction]Ordered By: Sharmaine Wong on 09-18-2023 Hematocrit (Bld) [Volume fraction] 44.9 % 34.0-46.4 [facility] Hemoglobin A1c percentageOrd ered By: Sharmaine Wong on 09-18-2023 HbA1c (Bld) [Mass fraction] 7.0 % 4.3-5.6 [facility] Comment on above: Increased risk for d iabetes: 5.7 - 6.4diabetes: >6.4glycemic control for adults with diabetes: <7.0 Hemoglobin [Mass/volume] in BloodOrdered By: Sharmaine Wong on 09-18-2023 Hemoglobin (Bld) [Mass/Vol] 15.0 g/dL 11.8-15.4 [facility] Leukocytes [#/volume] correc alondra for nucleated erythrocytes in Blood by Automated counOrdered By: Sharmaine Wong on 09-18-2023 WBC corrected for nucl RBC Auto (Bld) [#/Vol] 8.7 10*3/uL 3.8-11.6 [facility] MCH Auto (RBC) [Entitic mass ]Ordered By: Sharmaine Wong on 09-18-2023 MCH (RBC) [Entitic mass] 31.4 pg 24.7-34.3 [facility] MCHC Auto (RBC) [Mass/Vol]Or dered By: Sharmaine Wong on 09-18-2023 MCHC (RBC) [Mass/Vol] 33.4 g/dL 32.0-35.[address] [facility] MCV Auto (RBC) [Entitic vol] Ordered By: Sharmaine Wong on 09-18-2023 MCV (RBC) [Entitic vol] 94.0 fL 80-100 [facility] No Panel InformationOrdered By: Sharmaine Wong on 09-18-2023 Estimated GFR (CKD-EPI) 52.573 mL/Min [facility] Creatinine Clearance (Chem N/A [facility] Platelet mean volume Auto (B ld) [Entitic vol]Ordered By: Sharmaine Wong on 09-18-2023 Platelet mean volume (Bld) [Entitic vol] 9.0 fL 6.3-10.7 [facility] Platelets Auto (Bld) [#/Vol] Ordered By: Sharmaine Wong on 09-18-2023 Platelets (Bld) [#/Vol] 313 10*3/uL 150-450 [facility] Potassium [Moles/volume] in Serum or PlasmaOrdered By: Sharmaine Wong on 09-18-2023 Potassium [Moles/Vol] 4.9 mmol/L 3.5-5.[address] [facility] Protein [Mass/volume] in Ser um or PlasmaOrdered By: Sharmaine Wong on 09-18-2023 Protein [Mass/Vol] 6.8 g/dL 6.4-8.9 [facility] Protein [Mass/volume] in Uri neOrdered By: Sharmaine Wong on 09-18-2023 Protein (U) [Mass/Vol] 26 mg/dL 0-9 [facility] RBC Auto (Bld) [#/Vol]Ordere d By: Sharmaine Wong on 09-18-2023 RBC (Bld) [#/Vol] 4.77 10*6/uL 3.60-5.00 [facility] Serum or plasma albumin/glob ulin mass ratioOrdered By: Sharmaine Wong on 09-18-2023 Albumin/Globulin [Mass ratio] 1.8 {ratio} [facility] Serum or plasma anion gap de terminationOrdered By: Sharmaine Wong on 09-18-2023 Anion gap [Moles/Vol] 9.8 mmol/L 6.0-15.[address] [facility] Serum or plasma high density lipoprotein (HDL) cholesterol measurementOrdered By: Sharmaine Wong on 09-18-2023 Cholesterol in HDL [Mass/Vol] 57 mg/dL 23-92 [facility] Comment on above: HDL CHOL ATP-III CLA SSIFICATION Cardiovascular RiskHDL > or equal to 60 mg/dL LOWHDL < 40 mg/dL HIGH Serum or plasma total choles terol/high density lipoprotein (HDL) cholesterol mass ratOrdered By: Sharmaine Wong on 09-18-2023 Cholesterol.total/Chol esterol in HDL [Mass ratio] 2.4 {ratio} <5.0 [facility] Sodium [Moles/volume] in Ser um or PlasmaOrdered By: Sharmaine Wong on 09-18-2023 Sodium [Moles/Vol] 141 mmol/L 136-145 [facility] Triglyceride [Mass/volume] i n Serum or PlasmaOrdered By: Sharmaine Wong on 09-18-2023 Triglyceride [Mass/Vol] 139 mg/dL 0-149 [facility] Comment on above: TRIG ATP III CLASSIF ICATIONTRIG less than 150 mg/dL NormalTRIG 150-199 mg/dL Borderline highTRIG 200-500 mg/dL High TRIG greater than 500 mg/dL Very highStandard traceable to the Center for Disease Conrtrol and Prevention (CDC) test method. Urea nitrogen [Mass/volume] in Serum or PlasmaOrdered By: Sharmaine Wong on 09-18-2023 Urea nitrogen [Mass/Vol] 21 mg/dL 05-16 [facility] Urine protein/creatinine rat ioOrdered By: Sharmaine Wong on 09-18-2023 Protein/Creatinine (U) [Ratio] 92 mg/g{Cre} 0-200 [facility] CHEMISTRYOrdered By: SYSTEM SYSTEM on 03-28-2023 Potassium [Moles/Vol] 5.7 mmol/L High 3.5 - 5.3 mmol/L [facility] Comment on above: Result Comment: 'Spe cimen hemolyzed. Result may be affected. Redraw is recommended.' Laboratory - CoagulationOrde red By: Scott Sellers on 12-23-2022 PT Coag (PPP) [Time] 12.9 s 9.0-12.9 [facility] Platelet poor plasma interna tional normalized ratio (INR) by coagulation assay (relatOrdered By: Scott Sellers on 12-23-2022 INR Coag (PPP) [Relative time] 1.1 {INR} [facility] Comment on above: INR Therapeutic Rang [...] aPTT Coag (PPP) [Time] 19.5 s 25.1-36.5 [facility] Blood activated clotting mehnaz e by coagulation assayOrdered By: Scott Sellers on 12-22-2022 ACT Coag (Bld) 293 s 90-139 [facility] Comment on above: Reference Range: 90- 139 (Non-heparinized) Basophils Auto (Bld) [#/Vol] Ordered By: Scott Sellers on 12-14-2022 Basophils (Bld) [#/Vol] 0.1 10*3/uL 0.0-0.2 [facility] Basophils/100 WBC Auto (Bld) Ordered By: Scott Sellers on 12-14-2022 Basophils/100 WBC (Bld) 0.7 % . [facility] Calcium [Mass/volume] in Ser um or PlasmaOrdered By: Scott Sellers on 12-14-2022 Calcium [Mass/Vol] 9.1 mg/dL 8.2-10.2 [facility] Carbon dioxide, total [Moles /volume] in Serum or PlasmaOrdered By: Scott Sellers on 12-14-2022 CO2 [Moles/Vol] 28.0 mmol/L 22.0-30.0 [facility] Creatinine and Glomerular fi ltration rate.predicted panel (S/P/Bld)Ordered By: Scott Sellers on 12-14-2022 Creatinine [Mass/Vol] 1.00 mg/dL 0.44-1.[address] [facility] Eosinophils Auto (Bld) [#/Vo l]Ordered By: Scott Sellers on 12-14-2022 Eosinophils (Bld) [#/Vol] 0.3 10*3/uL 0.0-0.45 [facility] Eosinophils/100 WBC Auto (Bl d)Ordered By: Scott Sellers on 12-14-2022 Eosinophils/100 WBC (Bld) 3.9 % . [facility] Erythrocyte distribution wid th Auto (RBC) [Ratio]Ordered By: Scott Sellers on 12-14-2022 Erythrocyte distribution width (RBC) [Ratio] 12.5 % 11.9-15.3 [facility] Estimated glomerular filtrat ion rate (GFR) non- AmericanOrdered By: Scott Sellers on 12-14-2022 GFR/1.73 sq M.predicted among non-blacks MDRD (S/P/Bld) [Vol rate/Area] 55 mL/Min [facility] Hematocrit Auto (Bld) [Volum e fraction]Ordered By: Scott Sellers on 12-14-2022 Hematocrit (Bld) [Volume fraction] 44.0 % 34.0-46.4 [facility] Hemoglobin [Mass/volume] in BloodOrdered By: Scott Sellers on 12-14-2022 Hemoglobin (Bld) [Mass/Vol] 14.7 g/dL 11.8-15.4 [facility] Leukocytes [#/volume] correc alondra for nucleated erythrocytes in Blood by Automated counOrdered By: Scott Sellers on 12-14-2022 WBC corrected for nucl RBC Auto (Bld) [#/Vol] 8.1 10*3/uL 3.8-11.6 [facility] Lymphocytes Auto (Bld) [#/Vo l]Ordered By: Scott Sellers on 12-14-2022 Lymphocytes (Bld) [#/Vol] 1.8 10*3/uL 1.00-4.8 [facility] Lymphocytes/100 WBC Auto (Bl d)Ordered By: Scott Sellers on 12-14-2022 Lymphocytes/100 WBC (Bld) 22.4 % . [facility] MCH Auto (RBC) [Entitic mass ]Ordered By: Scott Sellers on 12-14-2022 MCH (RBC) [Entitic mass] 31.6 pg 24.7-34.3 [facility] MCHC Auto (RBC) [Mass/Vol]Or dered By: Scott Sellers on 12-14-2022 MCHC (RBC) [Mass/Vol] 33.3 g/dL 32.0-35.[address] [facility] MCV Auto (RBC) [Entitic vol] Ordered By: Scott Sellers on 12-14-2022 MCV (RBC) [Entitic vol] 94.8 fL 80-100 [facility] Monocytes Auto (Bld) [#/Vol] Ordered By: Scott Sellers on 12-14-2022 Monocytes (Bld) [#/Vol] 0.6 10*3/uL 0.0-0.8 [facility] Monocytes/100 WBC Auto (Bld) Ordered By: Scott Sellers on 12-14-2022 Monocytes/100 WBC (Bld) 7.2 % . [facility] Neutrophils Auto (Bld) [#/Vo l]Ordered By: Scott Sellers on 12-14-2022 Neutrophils (Bld) [#/Vol] 5.3 10*3/uL 1.8-7.7 [facility] Neutrophils/100 WBC Auto (Bl d)Ordered By: Scott Sellers on 12-14-2022 Neutrophils/100 WBC (Bld) 65.8 % . [facility] No Panel InformationOrdered By: Scott Sellers on 12-14-2022 Estimated GFR () > 60 mL/Min [facility] Comment on above: GFR estimated refere nce range: According to KDOQI guidelines, <60 ml/min/1.73m2 is sufficient to diagnose a patient with chronic kidney disease. Pharmacy Creatinine Clearance (Chem N/A [facility] Nucleated erythrocytes [Pres ence] in Blood by Automated countOrdered By: Scott Sellers on 12-14-2022 Nucleated RBC Auto Ql (Bld) 0.1 /100{WBC} 0-0.5 [facility] Platelet mean volume Auto (B ld) [Entitic vol]Ordered By: Scott Sellers on 12-14-2022 Platelet mean volume (Bld) [Entitic vol] 8.0 fL 6.3-10.7 [facility] Platelets Auto (Bld) [#/Vol] Ordered By: Scott Sellers on 12-14-2022 Platelets (Bld) [#/Vol] 220 10*3/uL 150-450 [facility] RBC Auto (Bld) [#/Vol]Ordere d By: Scott Sellers on 12-14-2022 RBC (Bld) [#/Vol] 4.65 10*6/uL 3.60-5.00 [facility] Serum or plasma anion gap de terminationOrdered By: Scott Sellers on 12-14-2022 Anion gap [Moles/Vol] 10.4 mmol/L 6.0-15.0 [facility] Serum or plasma chloride elvin surement (moles/volume)Ordered By: Scott Sellers on 12-14-2022 Chloride [Moles/Vol] 103 mmol/L 95-114 [facility] Serum or plasma glucose sudhakar urement (mass/volume)Ordered By: Scott Sellers on 12-14-2022 Glucose [Mass/Vol] 132 mg/dL 70-100 [facility] Comment on above: ADA recommended refe rence rangeRandom Glucose Reference Range is dependent on time and content of last meal. Glucose of more than 200 mg/dL in a nonstressed, ambulatory subject supports the diagnosis of Diabetes Mellitus. Serum or plasma potassium me asurement (moles/volume)Ordered By: Scott Sellers on 12-14-2022 Potassium [Moles/Vol] 4.4 mmol/L 3.5-5.[address] [facility] Serum or plasma sodium measu rement (moles/volume)Ordered By: Scott Sellers on 12-14-2022 Sodium [Moles/Vol] 137 mmol/L 136-146 [facility] Urea nitrogen [Mass/volume] in Serum or PlasmaOrdered By: Scott Sellers on 12-14-2022 Urea nitrogen [Mass/Vol] 15 mg/dL 9-23 [facility] WBC Auto (Bld) [#/Vol]Ordere d By: Scott Sellers on 12-14-2022 WBC (Bld) [#/Vol] 8.1 10*3/uL 3.8-11.6 [facility] Basophils Auto (Bld) [#/Vol] Ordered By: Christiano Murillo on 11-22-2022 Basophils (Bld) [#/Vol] 0.1 10*3/uL 0.0-0.2 [facility] Basophils/100 WBC Auto (Bld) Ordered By: Christiano Murillo on 11-22-2022 Basophils/100 WBC (Bld) 0.6 % . [facility] Eosinophils Auto (Bld) [#/Vo l]Ordered By: Christiano Murillo on 11-22-2022 Eosinophils (Bld) [#/Vol] 0.3 10*3/uL 0.0-0.45 [facility] Eosinophils/100 WBC Auto (Bl d)Ordered By: Christiano Murillo on 11-22-2022 Eosinophils/100 WBC (Bld) 2.5 % . [facility] Erythrocyte distribution wid th Auto (RBC) [Ratio]Ordered By: Christiano Murillo on 11-22-2022 Erythrocyte distribution width (RBC) [Ratio] 12.4 % 11.9-15.3 [facility] Hematocrit Auto (Bld) [Volum e fraction]Ordered By: Christiano Murillo on 11-22-2022 Hematocrit (Bld) [Volume fraction] 42.4 % 34.0-46.4 [facility] Hemoglobin [Mass/volume] in BloodOrdered By: Christiano Murillo on 11-22-2022 Hemoglobin (Bld) [Mass/Vol] 14.3 g/dL 11.8-15.4 [facility] Leukocytes [#/volume] correc alondra for nucleated erythrocytes in Blood by Automated counOrdered By: Christiano Murillo on 11-22-2022 WBC corrected for nucl RBC Auto (Bld) [#/Vol] 10.1 10*3/uL 3.8-11.6 [facility] Lymphocytes Auto (Bld) [#/Vo l]Ordered By: Christiano Murillo on 11-22-2022 Lymphocytes (Bld) [#/Vol] 2.2 10*3/uL 1.00-4.8 [facility] Lymphocytes/100 WBC Auto (Bl d)Ordered By: Christiano Murillo on 11-22-2022 Lymphocytes/100 WBC (Bld) 21.8 % . [facility] MCH Auto (RBC) [Entitic mass ]Ordered By: Christiano Murillo on 11-22-2022 MCH (RBC) [Entitic mass] 32.1 pg 24.7-34.3 [facility] MCHC Auto (RBC) [Mass/Vol]Or dered By: Christiano Murillo on 11-22-2022 MCHC (RBC) [Mass/Vol] 33.8 g/dL 32.0-35.[address] [facility] MCV Auto (RBC) [Entitic vol] Ordered By: Christiano Murillo on 11-22-2022 MCV (RBC) [Entitic vol] 94.9 fL 80-100 [facility] Monocytes Auto (Bld) [#/Vol] Ordered By: Christiano Murillo on 11-22-2022 Monocytes (Bld) [#/Vol] 0.8 10*3/uL 0.0-0.8 [facility] Monocytes/100 WBC Auto (Bld) Ordered By: Christiano Murillo on 11-22-2022 Monocytes/100 WBC (Bld) 7.7 % . [facility] Neutrophils Auto (Bld) [#/Vo l]Ordered By: Christiano Murillo on 11-22-2022 Neutrophils (Bld) [#/Vol] 6.8 10*3/uL 1.8-7.7 [facility] Neutrophils/100 WBC Auto (Bl d)Ordered By: Christiano Murillo on 11-22-2022 Neutrophils/100 WBC (Bld) 67.4 % . [facility] Nucleated erythrocytes [Pres ence] in Blood by Automated countOrdered By: Christiano Murillo on 11-22-2022 Nucleated RBC Auto Ql (Bld) 0.2 /100{WBC} 0-0.5 [facility] Platelet mean volume Auto (B ld) [Entitic vol]Ordered By: Christiano Murillo on 11-22-2022 Platelet mean volume (Bld) [Entitic vol] 8.3 fL 6.3-10.7 [facility] Platelets Auto (Bld) [#/Vol] Ordered By: Christiano Murillo on 11-22-2022 Platelets (Bld) [#/Vol] 254 10*3/uL 150-450 [facility] RBC Auto (Bld) [#/Vol]Ordere d By: Christiano Murillo on 11-22-2022 RBC (Bld) [#/Vol] 4.47 10*6/uL 3.60-5.00 [facility] WBC Auto (Bld) [#/Vol]Ordere d By: Christiano Murillo on 11-22-2022 WBC (Bld) [#/Vol] 10.1 10*3/uL 3.8-11.6 [facility] Activated partial thrombopla stin time (aPTT) in platelet poor plasma by coagulation aOrdered By: Delfino Goncalves on 11-12-2022 aPTT Coag (PPP) [Time] 30.7 s 25.1-36.5 [facility] Albumin [Mass/volume] in Ser um or PlasmaOrdered By: Delfino Goncalves on 11-12-2022 Albumin [Mass/Vol] 4.0 g/dL 3.2-5.5 [facility] Basophils Auto (Bld) [#/Vol] Ordered By: Delfino Goncalves on 11-12-2022 Basophils (Bld) [#/Vol] 0.1 10*3/uL 0.0-0.2 [facility] Basophils/100 WBC Auto (Bld) Ordered By: Delfino Goncalves on 11-12-2022 Basophils/100 WBC (Bld) 0.7 % . [facility] Creatinine and Glomerular fi ltration rate.predicted panel (S/P/Bld)Ordered By: Delfino Goncalves on 11-12-2022 Creatinine [Mass/Vol] 1.05 mg/dL 0.44-1.[address] [facility] Eosinophils Auto (Bld) [#/Vo l]Ordered By: Delfino Goncalves on 11-12-2022 Eosinophils (Bld) [#/Vol] 0.3 10*3/uL 0.0-0.45 [facility] Eosinophils/100 WBC Auto (Bl d)Ordered By: Delfino Goncalves on 11-12-2022 Eosinophils/100 WBC (Bld) 3.5 % . [facility] Erythrocyte distribution wid th Auto (RBC) [Ratio]Ordered By: Delfino Goncalves on 11-12-2022 Erythrocyte distribution width (RBC) [Ratio] 12.5 % 11.9-15.3 [facility] Estimated glomerular filtrat ion rate (GFR) non- AmericanOrdered By: Delfino Goncalves on 11-12-2022 GFR/1.73 sq M.predicted among non-blacks MDRD (S/P/Bld) [Vol rate/Area] 52 mL/Min [facility] Globulin Calc (S) [Mass/Vol] Ordered By: Delfino Goncalves on 11-12-2022 Globulin (S) [Mass/Vol] 2.3 g/dL [facility] Hematocrit Auto (Bld) [Volum e fraction]Ordered By: Delfino Goncalves on 11-12-2022 Hematocrit (Bld) [Volume fraction] 42.0 % 34.0-46.4 [facility] Hemoglobin [Mass/volume] in BloodOrdered By: Delfino Goncalves on 11-12-2022 Hemoglobin (Bld) [Mass/Vol] 14.3 g/dL 11.8-15.4 [facility] Laboratory - Chemistry and C hemistry - challengeOrdered By: Delfino Goncalves on 11-12-2022 Magnesium [Mass/Vol] 2.0 mg/dL 1.6-2.6 [facility] Natriuretic peptide B (Bld) [Mass/Vol] 46.0 pg/mL 5-100 [facility] Laboratory - CoagulationOrde red By: Delfino Goncalves on 11-12-2022 PT Coag (PPP) [Time] 11.5 s 9.0-12.9 [facility] Leukocytes [#/volume] correc alondra for nucleated erythrocytes in Blood by Automated counOrdered By: Delfino Goncalves on 11-12-2022 WBC corrected for nucl RBC Auto (Bld) [#/Vol] 9.6 10*3/uL 3.8-11.6 [facility] Lymphocytes Auto (Bld) [#/Vo l]Ordered By: Delfino Goncalves on 11-12-2022 Lymphocytes (Bld) [#/Vol] 3.1 10*3/uL 1.00-4.8 [facility] Lymphocytes/100 WBC Auto (Bl d)Ordered By: Delfino Goncalves on 11-12-2022 Lymphocytes/100 WBC (Bld) 32.0 % . [facility] MCH Auto (RBC) [Entitic mass ]Ordered By: Delfino Goncalves on 11-12-2022 MCH (RBC) [Entitic mass] 31.8 pg 24.7-34.3 [facility] MCHC Auto (RBC) [Mass/Vol]Or dered By: Delfino Goncalves on 11-12-2022 MCHC (RBC) [Mass/Vol] 33.9 g/dL 32.0-35.[address] [facility] MCV Auto (RBC) [Entitic vol] Ordered By: Delfino Goncalves on 11-12-2022 MCV (RBC) [Entitic vol] 93.8 fL 80-100 [facility] Monocyte distribution width [Entitic volume] in Blood by AutomatedOrdered By: Delfino Goncalves on 11-12-2022 Monocyte distribution width Auto (Bld) [Entitic vol] 16.25 % 0.00-20.00 [facility] Monocytes Auto (Bld) [#/Vol] Ordered By: Delfino Goncalves on 11-12-2022 Monocytes (Bld) [#/Vol] 0.7 10*3/uL 0.0-0.8 [facility] Monocytes/100 WBC Auto (Bld) Ordered By: Delfino Goncalves on 11-12-2022 Monocytes/100 WBC (Bld) 7.8 % . [facility] Neutrophils Auto (Bld) [#/Vo l]Ordered By: Delfino Goncalves on 11-12-2022 Neutrophils (Bld) [#/Vol] 5.4 10*3/uL 1.8-7.7 [facility] Neutrophils/100 WBC Auto (Bl d)Ordered By: Delfino Goncalves on 11-12-2022 Neutrophils/100 WBC (Bld) 56.0 % . [facility] No Panel InformationOrdered By: Delfino Goncalves on 11-12-2022 Estimated GFR () > 60 mL/Min [facility] Comment on above: GFR estimated refere nce range: According to KDOQI guidelines, <60 ml/min/1.73m2 is sufficient to diagnose a patient with chronic kidney disease. Pharmacy Creatinine Clearance (Chem 48.03 [facility] Nucleated erythrocytes [Pres ence] in Blood by Automated countOrdered By: Delfino Goncalves on 11-12-2022 Nucleated RBC Auto Ql (Bld) 0.2 /100{WBC} 0-0.5 [facility] Platelet mean volume Auto (B ld) [Entitic vol]Ordered By: Delfino Goncalves on 11-12-2022 Platelet mean volume (Bld) [Entitic vol] 8.3 fL 6.3-10.7 [facility] Platelet poor plasma interna tional normalized ratio (INR) by coagulation assay (relatOrdered By: Delfino Goncalves on 11-12-2022 INR Coag (PPP) [Relative time] 1.0 {INR} [facility] Comment on above: INR Therapeutic Rang [...] 11-12-2022 Platelets (Bld) [#/Vol] 230 10*3/uL 150-450 [facility] Protein [Mass/volume] in Ser um or PlasmaOrdered By: Delfino Goncalves on 11-12-2022 Protein [Mass/Vol] 6.3 g/dL 6.1-7.9 [facility] RBC Auto (Bld) [#/Vol]Ordere d By: Delfino Goncalves on 11-12-2022 RBC (Bld) [#/Vol] 4.48 10*6/uL 3.60-5.00 [facility] Serum or plasma alanine smith otransferase measurement without P-5'-P (enzymatic activiOrdered By: Delfino Goncalves on 11-12-2022 ALT No additional P-5'-P [Catalytic activity/Vol] 32 U/L 10-60 [facility] Serum or plasma albumin/glob ulin mass ratioOrdered By: Delfino Goncalves on 11-12-2022 Albumin/Globulin [Mass ratio] 1.7 {ratio} [facility] Serum or plasma alkaline lalo sphatase measurement (enzymatic activity/volume)Ordered By: Delfino Goncalves on 11-12-2022 ALP [Catalytic activity/Vol] 59 U/L 32-92 [facility] Serum or plasma anion gap de terminationOrdered By: Delfino Goncalves on 11-12-2022 Anion gap [Moles/Vol] 12.1 mmol/L 6.0-15.0 [facility] Serum or plasma aspartate am inotransferase measurement (enzymatic activity/volume)Ordered By: Delfino Goncalves on 11-12-2022 AST [Catalytic activity/Vol] 27 U/L 10 [facility] Serum or plasma calcium sudhakar urement (mass/volume)Ordered By: Delfino Goncalves on 11-12-2022 Calcium [Mass/Vol] 9.1 mg/dL 8.2-10.2 [facility] Serum or plasma chloride elvin surement (moles/volume)Ordered By: Delfino Goncalves on 11-12-2022 Chloride [Moles/Vol] 104 mmol/L 95-114 [facility] Serum or plasma glucose sudhakar urement (mass/volume)Ordered By: Delfino Goncalves on 11-12-2022 Glucose [Mass/Vol] 149 mg/dL 70-100 [facility] Comment on above: ADA recommended refe rence rangeRandom Glucose Reference Range is dependent on time and content of last meal. Glucose of more than 200 mg/dL in a nonstressed, ambulatory subject supports the diagnosis of Diabetes Mellitus. Serum or plasma potassium me asurement (moles/volume)Ordered By: Delfino Goncalves on 11-12-2022 Potassium [Moles/Vol] 3.6 mmol/L 3.5-5.[address] [facility] Serum or plasma sodium measu rement (moles/volume)Ordered By: Delfino Goncalves on 11-12-2022 Sodium [Moles/Vol] 135 mmol/L 136-146 [facility] Serum or plasma total biliru bin measurement (mass/volume)Ordered By: Delfino Goncalves on 11-12-2022 Bilirubin [Mass/Vol] 0.7 mg/dL 0.3-1.2 [facility] Serum or plasma total carbon dioxide measurement (moles/volume)Ordered By: Delfino Goncalves on 11-12-2022 CO2 [Moles/Vol] 22.5 mmol/L 22.0-30.0 [facility] Serum or plasma urea nitroge n measurement (mass/volume)Ordered By: Delfino Goncalves on 11-12-2022 Urea nitrogen [Mass/Vol] 15 mg/dL 07-15 [facility] Troponin I.cardiac [Mass/vol ume] in Serum or Plasma by High sensitivity methodOrdered By: Delfino Goncalves on 11-12-2022 Troponin I.cardiac High sensitivity method [Mass/Vol] 5 pg/mL 0-15 [facility] WBC Auto (Bld) [#/Vol]Ordere d By: Delfino Sacha on 11-12-2022 WBC (Bld) [#/Vol] 9.6 10*3/uL 3.8-11.6 [facility] COVID CepheidOrdered By: Cheyenne yi Sacha on 11-11-2022 SARS-CoV-2 (COVID-19) Ab IA Ql Negative Negative [facility] Comment on above: This is a duplicate Cepheid Xpert Xpress CoV-2/Flu/RSV Plus RNA by RT-PCR result to be used for statistical tracking purpose only. SARS-CoV-2 (COVID-19) RNA COBY+probe Ql (Unsp spec) [facility] Basophils Auto (Bld) [#/Vol] Ordered By: Sharmaine Wong on 06-29-2022 Basophils (Bld) [#/Vol] 0.0 10*3/uL 0.0-0.2 [facility] Basophils/100 WBC Auto (Bld) Ordered By: Sharmaine Wong on 06-29-2022 Basophils/100 WBC (Bld) 0.6 % . [facility] Bilirubin Test strip Ql (U)O rdered By: Sharmaine Wong on 06-29-2022 Bilirubin Ql (U) Negative Negative [facility] Blood hemoglobin measurement (mass/volume)Ordered By: Sharmaine Wong on 06-29-2022 Hemoglobin (Bld) [Mass/Vol] 14.4 g/dL 11.8-15.4 [facility] Blood leukocytes automated c ount (number/volume)Ordered By: Sharmaine Wong on 06-29-2022 WBC (Bld) [#/Vol] 7.4 10*3/uL 4.5-11.0 [facility] Body fluid albumin measureme nt (mass/volume)Ordered By: Sharmaine Wong on 06-29-2022 Albumin (Body fld) [Mass/Vol] 3.9 g/dL 3.2-5.5 [facility] Cholesterol [Mass/volume] in Serum or PlasmaOrdered By: Sharmaine Wong on 06-29-2022 Cholesterol [Mass/Vol] 153 mg/dL 140-200 [facility] Comment on above: Chol less than 200 m g/dl low risk Chol 201-239 mg/dl borderline risk Chol 240 mg/dl and greater high risk Cholesterol in LDL Calc [Mas s/Vol]Ordered By: Sharmaine Wong on 06-29-2022 Cholesterol in LDL [Mass/Vol] 60 mg/dL 0-100 [facility] Comment on above: LDL ATP III CLASSIFI CATION LDL less than 100 mg/dL Optimal LDL 100-129 mg/dL Near or above optimal LDL 130-159 mg/dL Borderline high LDL 160-189 mg/dL High LDL greater than 189 mg/dL Very high Cholesterol in VLDL Calc [Ma ss/Vol]Ordered By: Sharmaine Wong on 06-29-2022 Cholesterol in VLDL [Mass/Vol] 37 mg/dL [facility] Color Auto (U)Ordered By: Sa henrique Wong on 06-29-2022 Color (U) Yellow Yellow [facility] Creatinine [Mass/volume] in UrineOrdered By: Sharmaine Wong on 06-29-2022 Creatinine (U) [Mass/Vol] 93.7 mg/dL [facility] Comment on above: No reference range e stablished Creatinine and Glomerular fi ltration rate.predicted panel (S/P/Bld)Ordered By: Sharmaine Wong on 06-29-2022 Creatinine [Mass/Vol] 1.14 mg/dL 0.44-1.[address] [facility] Eosinophils Auto (Bld) [#/Vo l]Ordered By: Sharmaine Wong on 06-29-2022 Eosinophils (Bld) [#/Vol] 0.4 10*3/uL 0.0-0.45 [facility] Eosinophils/100 WBC Auto (Bl d)Ordered By: Sharmaine Wong on 06-29-2022 Eosinophils/100 WBC (Bld) 5.4 % . [facility] Erythrocyte distribution wid th Auto (RBC) [Ratio]Ordered By: Sharmaine Wong on 06-29-2022 Erythrocyte distribution width (RBC) [Ratio] 12.8 % 11.9-15.3 [facility] Estimated glomerular filtrat ion rate (GFR) non- AmericanOrdered By: Sharmaine Wong on 06-29-2022 GFR/1.73 sq M.predicted among non-blacks MDRD (S/P/Bld) [Vol rate/Area] 47 mL/Min [facility] Globulin Calc (S) [Mass/Vol] Ordered By: Sharmaine Wong on 06-29-2022 Globulin (S) [Mass/Vol] 2.5 g/dL [facility] Hematocrit Auto (Bld) [Volum e fraction]Ordered By: Sharmaine Wong on 06-29-2022 Hematocrit (Bld) [Volume fraction] 42.9 % 34.0-46.4 [facility] Ketones Auto test strip (U) [Mass/Vol]Ordered By: Sharmaine Wong on 06-29-2022 Ketones (U) [Mass/Vol] Negative Negative [facility] - Hematology and Cell countsOrdered By: Sharmaine Wong on 06-29-2022 Nucleated RBC/100 WBC (Bld) [Ratio] 0.1 % 0-0.5 [facility] Lymphocytes Auto (Bld) [#/Vo l]Ordered By: Sharmaine Wong on 06-29-2022 Lymphocytes (Bld) [#/Vol] 2.4 10*3/uL 1.00-4.8 [facility] Lymphocytes/100 WBC Auto (Bl d)Ordered By: Sharmaine Wong on 06-29-2022 Lymphocytes/100 WBC (Bld) 32.0 % . [facility] MCH Auto (RBC) [Entitic mass ]Ordered By: Sharmaine Wong on 06-29-2022 MCH (RBC) [Entitic mass] 32.2 pg 24.7-34.3 [facility] MCHC Auto (RBC) [Mass/Vol]Or dered By: Sharmaine Wong on 06-29-2022 MCHC (RBC) [Mass/Vol] 33.5 g/dL 32.0-35.[address] [facility] MCV Auto (RBC) [Entitic vol] Ordered By: Sharmaine Wong on 06-29-2022 MCV (RBC) [Entitic vol] 96.0 fL 80-100 [facility] Monocytes Auto (Bld) [#/Vol] Ordered By: Sharmaine Wong on 06-29-2022 Monocytes (Bld) [#/Vol] 0.6 10*3/uL 0.0-0.8 [facility] Monocytes/100 WBC Auto (Bld) Ordered By: Sharmaine Wong on 06-29-2022 Monocytes/100 WBC (Bld) 8.0 % . [facility] Neutrophils Auto (Bld) [#/Vo l]Ordered By: Sharmaine Wong on 06-29-2022 Neutrophils (Bld) [#/Vol] 4.0 10*3/uL 1.8-7.7 [facility] Neutrophils/100 WBC Auto (Bl d)Ordered By: Sharmaine Wong on 06-29-2022 Neutrophils/100 WBC (Bld) 54.0 % . [facility] Nitrite Test strip Ql (U)Ord ered By: Sharmaine Wong on 06-29-2022 Nitrite Ql (U) Negative Negative [facility] No Panel InformationOrdered By: Sharmaine Wong on 06-29-2022 Estimated GFR () 57 mL/Min [facility] Comment on above: GFR estimated refere nce range: According to KDOQI guidelines, <60 ml/min/1.73m2 is sufficient to diagnose a patient with chronic kidney disease. Pharmacy Creatinine Clearance (Chem N/A [facility] Platelet mean volume Auto (B ld) [Entitic vol]Ordered By: Sharmaine Wong on 06-29-2022 Platelet mean volume (Bld) [Entitic vol] 8.6 fL 6.3-10.7 [facility] Platelets Auto (Bld) [#/Vol] Ordered By: Sharmaine Wong on 06-29-2022 Platelets (Bld) [#/Vol] 287 10*3/uL 150-450 [facility] Protein Auto test strip (U) [Mass/Vol]Ordered By: Sharmaine Wong on 06-29-2022 Protein (U) [Mass/Vol] Negative Negative [facility] Protein [Mass/volume] in Ser um or PlasmaOrdered By: Sharmaine Wong on 06-29-2022 Protein [Mass/Vol] 6.4 g/dL 6.1-7.9 [facility] RBC Auto (Bld) [#/Vol]Ordere d By: Sharmaine Wong on 06-29-2022 RBC (Bld) [#/Vol] 4.47 10*6/uL 3.60-5.00 [facility] Serum or plasma alanine smith otransferase measurement without P-5'-P (enzymatic activiOrdered By: Sharmaine Wong on 06-29-2022 ALT No additional P-5'-P [Catalytic activity/Vol] 23 U/L 10-60 [facility] Serum or plasma albumin/glob ulin mass ratioOrdered By: Sharmaine Wong on 06-29-2022 Albumin/Globulin [Mass ratio] 1.6 {ratio} [facility] Serum or plasma alkaline lalo sphatase measurement (enzymatic activity/volume)Ordered By: Sharmaine Wong on 06-29-2022 ALP [Catalytic activity/Vol] 54 U/L 32-92 [facility] Serum or plasma anion gap de terminationOrdered By: Sharmaine Wong on 06-29-2022 Anion gap [Moles/Vol] 14.6 mmol/L 6.0-15.0 [facility] Serum or plasma aspartate am inotransferase measurement (enzymatic activity/volume)Ordered By: Sharmaine Wong on 06-29-2022 AST [Catalytic activity/Vol] 22 U/L 10-42 [facility] Serum or plasma calcium sudhakar urement (mass/volume)Ordered By: Sharmaine Wong on 06-29-2022 Calcium [Mass/Vol] 9.3 mg/dL 8.2-10.2 [facility] Serum or plasma chloride elvin surement (moles/volume)Ordered By: Sharmaine Sanches on 06-29-2022 Chloride [Moles/Vol] 101 mmol/L 95-114 [facility] Serum or plasma glucose sudhakar urement (mass/volume)Ordered By: Sharmaine Wong on 06-29-2022 Glucose [Mass/Vol] 136 mg/dL 70-100 [facility] Comment on above: ADA recommended refe rence range Random Glucose Reference Range is dependent on time and content of last meal. Glucose of more than 200 mg/dL in a nonstressed, ambulatory subject supports the diagnosis of Diabetes Mellitus. Serum or plasma high density lipoprotein (HDL) cholesterol measurementOrdered By: Sharmaine Wong on 06-29-2022 Cholesterol in HDL [Mass/Vol] 55 mg/dL 35-85 [facility] Comment on above: HDL CHOL ATP-III CLA SSIFICATION Cardiovascular Risk HDL > or equal to 60 mg/dL LOW HDL < 40 mg/dL HIGH Serum or plasma potassium me asurement (moles/volume)Ordered By: Sharmaine Sanches on 06-29-2022 Potassium [Moles/Vol] 5.3 mmol/L 3.5-5.[address] [facility] Serum or plasma sodium measu rement (moles/volume)Ordered By: Sharmaine Wong on 06-29-2022 Sodium [Moles/Vol] 138 mmol/L 136-146 [facility] Serum or plasma total biliru bin measurement (mass/volume)Ordered By: Sharmaine Wong on 06-29-2022 Bilirubin [Mass/Vol] 1.2 mg/dL 0.3-1.2 [facility] Serum or plasma total carbon dioxide measurement (moles/volume)Ordered By: Sharmaine Wong on 06-29-2022 CO2 [Moles/Vol] 27.7 mmol/L 22.0-30.0 [facility] Serum or plasma total choles terol/high density lipoprotein (HDL) cholesterol mass ratOrdered By: Sharmaine Wong on 06-29-2022 Cholesterol.total/Chol esterol in HDL [Mass ratio] 2.8 {ratio} <5.0 [facility] Serum or plasma urea nitroge n measurement (mass/volume)Ordered By: Sharmaine Wong on 06-29-2022 Urea nitrogen [Mass/Vol] 15 mg/dL 9-23 [facility] Specific gravity Auto test s trip (U) [Rel density]Ordered By: Sharmaine Sanches on 06-29-2022 Specific gravity (U) [Rel density] 1.010 1.001-1.030 [facility] Triglyceride [Mass/volume] i n Serum or PlasmaOrdered By: Sharmaine Wong on 06-29-2022 Triglyceride [Mass/Vol] 188 mg/dL 35-149 [facility] Comment on above: TRIG ATP III CLASSIF ICATION TRIG less than 150 mg/dL Normal TRIG 150-199 mg/dL Borderline high TRIG 200-500 mg/dL High TRIG greater than 500 mg/dL Very high Standard traceable to the Center for Disease Conrtrol and Prevention (CDC) test method. Urine clarity by refractomet ry automatedOrdered By: Sharmaine Wong on 06-29-2022 Clarity Refractometry automated (U) Clear Clear [facility] Urine glucose measurement by automated test strip (mass/volume)Ordered By: Sharmaine Wong on 06-29-2022 Glucose Auto test strip (U) [Mass/Vol] Normal mg/dL Normal [facility] Urine hemoglobin detection b y automated test stripOrdered By: Sharmaine Sanches on 06-29-2022 Hemoglobin Auto test strip Ql (U) Negative Negative [facility] Urine leukocyte esterase det ection by automated test stripOrdered By: Sharmaine Wong on 06-29-2022 Leukocyte esterase Auto test strip Ql (U) Negative Negative [facility] Urine microalbumin measureme nt with detection limit of 20 mg/L or less (mass/volume)Ordered By: Sharmaine Wong on 06-29-2022 Albumin DL <= 20 mg/L (U) [Mass/Vol] mg/dL 0.0-1.8 [facility] Urine microalbumin/creatinin e mass ratioOrdered By: Sharmaine Wong on 06-29-2022 Albumin/Creatinine DL <= 20 mg/L (U) [Mass ratio] TNP [facility] Comment on above: Test not performed Urobilinogen Auto test strip (U) [Mass/Vol]Ordered By: Sharmaine Wong on 06-29-2022 Urobilinogen (U) [Mass/Vol] Normal mg/dL Normal [facility] pH Auto test strip (U)Ordere d By: Sharmaine Wong on 06-29-2022 pH (U) 5.5 [pH] 5.0-9.0 [facility] 24 hour urine sodium measure ment (moles/time)Ordered By: Jazmin Mauro on 06-10-2022 Sodium (24H U) [Moles/Time] 95 mmol/24 40-220 [facility] 24 hour urine uric acid sudhakar urement (mass/time)Ordered By: Jazmin Mauro on 06-10-2022 Urate (24H U) [Mass/Time] 274.5 mg/24 hr 142.3-713.2 [facility] Comment on above: Performed at: [place] [id number] Propeller Inspector: Bebo Gibbons PhD, Phone: [phone] CT biopsyOrdered By: Jazmin Mauro on 06-10-2022 CT biopsy 24 Hours [facility] Calcium [Mass/time] in 24 ho ur UrineOrdered By: Jazmin Mauro on 06-10-2022 Calcium (24H U) [Mass/Time] 174 mg/24 hr 0-320 [facility] Calcium [Mass/volume] in 24 hour UrineOrdered By: Jazmin Mauro on 06-10-2022 Calcium (24H U) [Mass/Vol] 5.5 mg/dL Not Estab. [facility] Creatinine [Mass/volume] in UrineOrdered By: Jazmin Mauro on 06-10-2022 Creatinine (U) [Mass/Vol] 32.63 mg/dL [facility] Comment on above: No reference range e stablished Creatinine and Glomerular fi ltration rate.predicted panel (S/P/Bld)Ordered By: aJzmin Mauro on 06-10-2022 Creatinine [Mass/Vol] 1.16 mg/dL 0.44-1.[address] [facility] Estimated glomerular filtrat ion rate (GFR) non- AmericanOrdered By: Jazmin Mauro on 06-10-2022 GFR/1.73 sq M.predicted among non-blacks MDRD (S/P/Bld) [Vol rate/Area] 46 mL/Min [facility] Magnesium [Mass/time] in 24 hour UrineOrdered By: Jazmin Mauro on 06-10-2022 Magnesium (24H U) [Mass/Time] 113.6 mg/24 hr 12.0-293.0 [facility] Magnesium [Mass/volume] in U rineOrdered By: Jazmin Mauro on 06-10-2022 Magnesium (U) [Mass/Vol] 3.6 mg/dL Not Estab. [facility] No Panel InformationOrdered By: Jazmin Mauro on 06-10-2022 Estimated GFR () 56 mL/Min [facility] Comment on above: GFR estimated refere nce range: According to KDOQI guidelines, <60 ml/min/1.73m2 is sufficient to diagnose a patient with chronic kidney disease. Pharmacy Creatinine Clearance (Chem N/A [facility] Urine Citric Acid 32 mg/L Undefined [facility] Urine Citric Acid 24 Hour 101 mg/24 hr 320-1240 [facility] Comment on above: This test was develo ped and its performance characteristics determined by [employer]. It has not been cleared or approved by the Food and Drug Administration. Performed at: [facility] [address] [id number] [employer] Inspector: Nir Adame MD, Phone: [phone] Urine Creatinine 24 Hour 1.03 g/24 hr 0.80-1.89 [facility] Oxalate [Mass/time] in 24 ho ur UrineOrdered By: Jazmin Mauro on 06-10-2022 Oxalate (24H U) [Mass/Time] 16 mg/24 hr 4-31 [facility] Comment on above: Performed at: [facility] [address] [id number] [employer] Inspector: Nir Adame MD, Phone: [phone] Oxalate [Mass/volume] in Uri neOrdered By: Jazmin Mauro on 06-10-2022 Oxalate (U) [Mass/Vol] 5 mg/L Undefined [facility] Phosphate [Mass/time] in 24 hour UrineOrdered By: Jazmin Mauro on 06-10-2022 Phosphate (24H U) [Mass/Time] 350 mg/24 hr 261-1078 [facility] Phosphate [Mass/volume] in U rineOrdered By: Jazmin Mauro on 06-10-2022 Phosphate (U) [Mass/Vol] 11.1 mg/dL Not Estab. [facility] Serum or plasma calcium sudhakar urement (mass/volume)Ordered By: Jazmin Mauro on 06-10-2022 Calcium [Mass/Vol] 9.7 mg/dL 8.2-10.2 [facility] Serum or plasma chloride elvin surement (moles/volume)Ordered By: Jazmin Mauro on 06-10-2022 Chloride [Moles/Vol] 101 mmol/L 95-114 [facility] Serum or plasma intact parat hyroid hormone measurement (mass/volume)Ordered By: Jazmin Mauro on 06-10-2022 Parathyrin.intact [Mass/Vol] 39.0 pg/mL [facility] Serum or plasma potassium me asurement (moles/volume)Ordered By: Jazmin Mauro on 06-10-2022 Potassium [Moles/Vol] 4.9 mmol/L 3.5-5.[address] [facility] Serum or plasma sodium measu rement (moles/volume)Ordered By: Jazmin Mauro on 06-10-2022 Sodium [Moles/Vol] 139 mmol/L 136-146 [facility] Serum or plasma total carbon dioxide measurement (moles/volume)Ordered By: Jazmin Mauro on 06-10-2022 CO2 [Moles/Vol] 26.6 mmol/L 22.0-30.0 [facility] Serum or plasma urea nitroge n measurement (mass/volume)Ordered By: Jazmin Mauro on 06-10-2022 Urea nitrogen [Mass/Vol] 13 mg/dL 07-15 [facility] Serum or plasma uric acid me asurement (mass/volume)Ordered By: Jazmin Mauro on 06-10-2022 Urate [Mass/Vol] 6.8 mg/dL 2.6-7.2 [facility] Urine sodium measurement (mo les/volume)Ordered By: Jazmin Mauro on 06-10-2022 Sodium (U) [Moles/Vol] 30.0 mmol/L [facility] Comment on above: No reference range e stablished Urine uric acid measurement (mass/volume)Ordered By: Jazmin Mauro on 06-10-2022 Urate (U) [Mass/Vol] 8.7 mg/dL Not Estab. [facility] Urine volume measurementOrde red By: Jazmin Mauro on 06-10-2022 Specimen volume (U) [address] [facility] Creatinine and Glomerular fi ltration rate.predicted panel (S/P/Bld)Ordered By: Sharmaine Wong on 05-31-2022 Creatinine [Mass/Vol] 1.06 mg/dL 0.44-1.[address] [facility] Estimated glomerular filtrat ion rate (GFR) non- AmericanOrdered By: Sharmaine Wong on 05-31-2022 GFR/1.73 sq M.predicted among non-blacks MDRD (S/P/Bld) [Vol rate/Area] 51 mL/Min [facility] No Panel InformationOrdered By: Sharmaine Wong on 05-31-2022 Estimated GFR () > 60 mL/Min [facility] Comment on above: GFR estimated refere nce range: According to KDOQI guidelines, <60 ml/min/1.73m2 is sufficient to diagnose a patient with chronic kidney disease. Pharmacy Creatinine Clearance (Chem N/A [facility] Serum or plasma calcium sudhakar urement (mass/volume)Ordered By: Sharmaine Wong on 05-31-2022 Calcium [Mass/Vol] 9.1 mg/dL 8.2-10.2 [facility] Serum or plasma chloride elvin surement (moles/volume)Ordered By: Sharmaine Sanches on 05-31-2022 Chloride [Moles/Vol] 101 mmol/L 95-114 [facility] Serum or plasma glucose sudhakar urement (mass/volume)Ordered By: Sharmaine Wong on 05-31-2022 Glucose [Mass/Vol] 135 mg/dL 70-100 [facility] Comment on above: ADA recommended refe rence range Random Glucose Reference Range is dependent on time and content of last meal. Glucose of more than 200 mg/dL in a nonstressed, ambulatory subject supports the diagnosis of Diabetes Mellitus. Serum or plasma potassium me asurement (moles/volume)Ordered By: Sharmaine Sanches on 05-31-2022 Potassium [Moles/Vol] 4.4 mmol/L 3.5-5.[address] [facility] Serum or plasma sodium measu rement (moles/volume)Ordered By: Sharmaine Wong on 05-31-2022 Sodium [Moles/Vol] 140 mmol/L 136-146 [facility] Serum or plasma total carbon dioxide measurement (moles/volume)Ordered By: Sharmaine Wong on 05-31-2022 CO2 [Moles/Vol] 26.5 mmol/L 22.0-30.0 [facility] Serum or plasma urea nitroge n measurement (mass/volume)Ordered By: Sharmaine Wong on 05-31-2022 Urea nitrogen [Mass/Vol] 14 mg/dL 9-23 [facility] Basophils Auto (Bld) [#/Vol] Ordered By: Sharmaine Wong on 05-25-2022 Basophils (Bld) [#/Vol] 0.0 10*3/uL 0.0-0.2 [facility] Basophils/100 WBC Auto (Bld) Ordered By: Sharmaine Wong on 05-25-2022 Basophils/100 WBC (Bld) 0.6 % . [facility] Blood hemoglobin measurement (mass/volume)Ordered By: Sharmaine Wong on 05-25-2022 Hemoglobin (Bld) [Mass/Vol] 14.6 g/dL 11.8-15.4 [facility] Blood leukocytes automated c ount (number/volume)Ordered By: Sharmaine Wong on 05-25-2022 WBC (Bld) [#/Vol] 7.5 10*3/uL 4.5-11.0 [facility] Body fluid albumin measureme nt (mass/volume)Ordered By: Sharmaine Wong on 05-25-2022 Albumin (Body fld) [Mass/Vol] 4.0 g/dL 3.2-5.5 [facility] Creatinine and Glomerular fi ltration rate.predicted panel (S/P/Bld)Ordered By: Sharmaine Wong on 05-25-2022 Creatinine [Mass/Vol] 1.16 mg/dL 0.44-1.[address] [facility] Eosinophils Auto (Bld) [#/Vo l]Ordered By: Sharmaine Wong on 05-25-2022 Eosinophils (Bld) [#/Vol] 0.3 10*3/uL 0.0-0.45 [facility] Eosinophils/100 WBC Auto (Bl d)Ordered By: Sharmaine Wong on 05-25-2022 Eosinophils/100 WBC (Bld) 3.6 % . [facility] Erythrocyte distribution wid th Auto (RBC) [Ratio]Ordered By: Sharmaine Wong on 05-25-2022 Erythrocyte distribution width (RBC) [Ratio] 12.9 % 11.9-15.3 [facility] Estimated glomerular filtrat ion rate (GFR) non- AmericanOrdered By: Sharmaine Wong on 05-25-2022 GFR/1.73 sq M.predicted among non-blacks MDRD (S/P/Bld) [Vol rate/Area] 46 mL/Min [facility] Globulin Calc (S) [Mass/Vol] Ordered By: Sharmaine Wong on 05-25-2022 Globulin (S) [Mass/Vol] 2.4 g/dL [facility] Hematocrit Auto (Bld) [Volum e fraction]Ordered By: Sharmaine Wong on 05-25-2022 Hematocrit (Bld) [Volume fraction] 43.9 % 34.0-46.4 [facility] - Chemistry and C hemistry - challengeOrdered By: Sharmaine Wong on 05-25-2022 Cobalamin (Vitamin B12) [Mass/Vol] 1974 pg/mL 180-914 [facility] - Hematology and Cell countsOrdered By: Sharmaine Wong on 05-25-2022 Nucleated RBC/100 WBC (Bld) [Ratio] 0.1 % 0-0.5 [facility] Lymphocytes Auto (Bld) [#/Vo l]Ordered By: Sharmaine Wong on 05-25-2022 Lymphocytes (Bld) [#/Vol] 1.7 10*3/uL 1.00-4.8 [facility] Lymphocytes/100 WBC Auto (Bl d)Ordered By: Sharmaine Wong on 05-25-2022 Lymphocytes/100 WBC (Bld) 23.1 % . [facility] MCH Auto (RBC) [Entitic mass ]Ordered By: Sharmaine Wong on 05-25-2022 MCH (RBC) [Entitic mass] 32.1 pg 24.7-34.3 [facility] MCHC Auto (RBC) [Mass/Vol]Or dered By: Sharmaine Wong on 05-25-2022 MCHC (RBC) [Mass/Vol] 33.4 g/dL 32.0-35.[address] [facility] MCV Auto (RBC) [Entitic vol] Ordered By: Sharmaine Wong on 05-25-2022 MCV (RBC) [Entitic vol] 96.0 fL 80-100 [facility] Monocytes Auto (Bld) [#/Vol] Ordered By: Sharmaine Wong on 05-25-2022 Monocytes (Bld) [#/Vol] 0.6 10*3/uL 0.0-0.8 [facility] Monocytes/100 WBC Auto (Bld) Ordered By: Sharmaine Wong on 05-25-2022 Monocytes/100 WBC (Bld) 8.2 % . [facility] Neutrophils Auto (Bld) [#/Vo l]Ordered By: Sharmaine Wong on 05-25-2022 Neutrophils (Bld) [#/Vol] 4.8 10*3/uL 1.8-7.7 [facility] Neutrophils/100 WBC Auto (Bl d)Ordered By: Sharmaine Wong on 05-25-2022 Neutrophils/100 WBC (Bld) 64.5 % . [facility] No Panel InformationOrdered By: Sharmaine Wong on 05-25-2022 Estimated GFR () 56 mL/Min [facility] Comment on above: GFR estimated refere nce range: According to KDOQI guidelines, <60 ml/min/1.73m2 is sufficient to diagnose a patient with chronic kidney disease. Pharmacy Creatinine Clearance (Chem N/A [facility] Platelet mean volume Auto (B ld) [Entitic vol]Ordered By: Sharmaine Wong on 05-25-2022 Platelet mean volume (Bld) [Entitic vol] 8.7 fL 6.3-10.7 [facility] Platelets Auto (Bld) [#/Vol] Ordered By: Sharmaine Wong on 05-25-2022 Platelets (Bld) [#/Vol] 255 10*3/uL 150-450 [facility] Protein [Mass/volume] in Ser um or PlasmaOrdered By: Sharmaine Wong on 05-25-2022 Protein [Mass/Vol] 6.4 g/dL 6.1-7.9 [facility] RBC Auto (Bld) [#/Vol]Ordere d By: Sharmaine Wong on 05-25-2022 RBC (Bld) [#/Vol] 4.57 10*6/uL 3.60-5.00 [facility] Serum or plasma alanine smith otransferase measurement without P-5'-P (enzymatic activiOrdered By: Sharmaine Wong on 05-25-2022 ALT No additional P-5'-P [Catalytic activity/Vol] 23 U/L 10-60 [facility] Serum or plasma albumin/glob ulin mass ratioOrdered By: Sharmaine Wong on 05-25-2022 Albumin/Globulin [Mass ratio] 1.7 {ratio} [facility] Serum or plasma alkaline lalo sphatase measurement (enzymatic activity/volume)Ordered By: Sharmaine Wong on 05-25-2022 ALP [Catalytic activity/Vol] 53 U/L 32-92 [facility] Serum or plasma aspartate am inotransferase measurement (enzymatic activity/volume)Ordered By: Sharmaine Wong on 05-25-2022 AST [Catalytic activity/Vol] 20 U/L 10-42 [facility] Serum or plasma calcium sudhakar urement (mass/volume)Ordered By: Sharmaine Wong on 05-25-2022 Calcium [Mass/Vol] 9.7 mg/dL 8.2-10.2 [facility] Serum or plasma chloride elvin surement (moles/volume)Ordered By: Sharmaine Sanches on 05-25-2022 Chloride [Moles/Vol] 98 mmol/L 95-114 [facility] Serum or plasma glucose sudhakar urement (mass/volume)Ordered By: Sharmaine Wong on 05-25-2022 Glucose [Mass/Vol] 131 mg/dL 70-100 [facility] Comment on above: ADA recommended refe rence range Random Glucose Reference Range is dependent on time and content of last meal. Glucose of more than 200 mg/dL in a nonstressed, ambulatory subject supports the diagnosis of Diabetes Mellitus. Serum or plasma potassium me asurement (moles/volume)Ordered By: Sharmaine Sanches on 05-25-2022 Potassium [Moles/Vol] 5.2 mmol/L 3.5-5.[address] [facility] Serum or plasma sodium measu rement (moles/volume)Ordered By: Sharmaine Wong on 05-25-2022 Sodium [Moles/Vol] 138 mmol/L 136-146 [facility] Serum or plasma total biliru bin measurement (mass/volume)Ordered By: Sharmaine Wong on 05-25-2022 Bilirubin [Mass/Vol] 1.3 mg/dL 0.3-1.2 [facility] Comment on above: Samples from patient s who have taken Naproxen have shown spurious elevation in Total Bilirubin levels. A metabolite of Naproxen, O-desmethylnaproxen, has been shown to interfere with the Arvin-Samantha method for measuring Total Bilirubin. Serum or plasma total carbon dioxide measurement (moles/volume)Ordered By: Sharmaine Wong on 05-25-2022 CO2 [Moles/Vol] 27.9 mmol/L 22.0-30.0 [facility] Serum or plasma urea nitroge n measurement (mass/volume)Ordered By: Sharmaine Wong on 05-25-2022 Urea nitrogen [Mass/Vol] 19 mg/dL 9- [facility] TSH DL <= 0.005 mIU/L QnOrde red By: Sharmaine Wong on 05-25-2022 TSH Qn 4.24 m[IU]/L 0.45-5.33 [facility] SCREENING MAMMOGRAM W/RICHARD, BILATERAL*on 02-21-2022 SCREENING [...] VERY IMPORTANT TO YOUR HEALTH. THE CURRENT [employer] GUIDELINES RECOMMENDS ANNUAL MAMMOGRAPHY BEGINNING AT AGE 42 THIS FACILITY USES A REMINDER SYSTEM TO ENSURE ALL PATIENTS RECEIVE REMINDER NOTIFICATIONS AT THE APPROPRIATE TIME BASED ON THE RECOMMENDATIONS OF THIS EXAM. Board Certified Radiologist. Accredited by the ACR and FDA. Report reported and signed by Nehemias Anderson on 02/21/2022 1050 Normal [facility] Specialist XR KUB 1 VIEWon 12-10-2020 XR [...] by: TL JORDAN Date: 2020-12-10 09:32 Normal [facility] Vital Signs Date Time Vital Sign Value Performing Clinician Facility 05-09-2025 15:17-0400 Body height 157.48 cm Sharmaine Wong DO Work Phone: [facility] 05-09-2025 15:17-0400 Body temperature 98.9 [degF] Sharmaine Damian-Milton DO Work Phone: [facility] 05-09-2025 15:17-0400 Body weight 72.57 kg Sharmaine Damian-Milton DO Work Phone: [facility] 05-09-2025 15:17-0400 Diastolic blood pressure 72 mm[Hg] Sharmaine Damian-Milton DO Work Phone: [facility] 05-09-2025 15:17-0400 Heart rate 69 /min Sharmaine Damian-Milton DO Work Phone: [facility] 05-09-2025 15:17-0400 Respiratory rate 20 /min Sharmaine Damian-Milton DO Work Phone: [facility] 05-09-2025 15:17-0400 SaO2% (BldA) [Mass fraction] 94 % Sharmaine Damian-Milton DO Work Phone: [facility] 05-09-2025 15:17-0400 Systolic blood pressure 113 mm[Hg] Sharmaine Damian-Milton DO Work Phone: [facility] 05-01-2025 11:09-0400 Body mass index (BMI) [Ratio] 30.42 kg/m2 Sharmaine Damian-Milton DO Work Phone: [facility] 05-01-2025 11:09-0400 Body weight 73.03 kg Sharmaine Damian-Milton DO Work Phone: [facility] 05-01-2025 11:09-0400 Diastolic blood pressure 76 mm[Hg] Sharmaine Damian-Milton DO Work Phone: [facility] 05-01-2025 11:09-0400 Heart rate 58 /min Sharmaine Damian-Milton DO Work Phone: [facility] 05-01-2025 11:09-0400 SaO2% (BldA) [Mass fraction] 98 % Sharmaine Damian-Milton DO Work Phone: [facility] 05-01-2025 11:09-0400 Systolic blood pressure 132 mm[Hg] Sharmaine Damian-Milton DO Work Phone: [facility] 04-15-2025 11:28-0400 Body temperature 97.5 [degF] Sharmaine Damian-Milton DO Work Phone: [facility] 04-15-2025 11:28-0400 Body weight 72.57 kg Sharmaine Damian-Milton DO Work Phone: [facility] 04-15-2025 11:28-0400 Diastolic blood pressure 76 mm[Hg] Sharmaine Damian-Milton DO Work Phone: [facility] 04-15-2025 11:28-0400 Heart rate 62 /min Sharmaine Damian-Milton DO Work Phone: [facility] 04-15-2025 11:28-0400 SaO2% (BldA) [Mass fraction] 96 % Sharmaine Damian-Milton DO Work Phone: [facility] 04-15-2025 11:28-0400 Systolic blood pressure 122 mm[Hg] Sharmaine Damian-Milton DO Work Phone: [facility] 12-26-2024 09:35-0500 Body mass index (BMI) [Ratio] 30.65 kg/m2 Sharmaine Damian-Milton DO Work Phone: [facility] 12-26-2024 09:35-0500 Body weight 73.57 kg Sharmaine Damian-Milton DO Work Phone: [facility] 12-26-2024 09:35-0500 Diastolic blood pressure 62 mm[Hg] Sharmaine Damian-Milton DO Work Phone: [facility] 12-26-2024 09:35-0500 Heart rate 67 /min Sharmaine Damian-Milton DO Work Phone: [facility] 12-26-2024 09:35-0500 SaO2% (BldA) [Mass fraction] 96 % Sharmaine Damian-Milton DO Work Phone: [facility] 12-26-2024 09:35-0500 Systolic blood pressure 108 mm[Hg] Sharmaine Damian-Milton DO Work Phone: [facility] 12-04-2024 14:27-0500 Body height 154.9 cm Ambrosio Brown DPM Work Phone: [facility] 12-04-2024 14:27-0500 Body mass index (BMI) [Ratio] 29.85 kg/m2 Ambrosio Brown DPM Work Phone: [facility] 12-04-2024 14:27-0500 Body weight 71.67 kg Ambrosio Brown DPM Work Phone: [facility] 12-04-2024 14:27-0500 Respiratory rate 18 /min Ambrosio Brown DPM Work Phone: [facility] 11-20-2024 13:37-0500 Body height 154.9 cm Ambrosio Brown DPM Work Phone: [facility] 11-20-2024 13:37-0500 Body mass index (BMI) [Ratio] 29.85 kg/m2 Ambrosio Brown DPM Work Phone: [facility] 11-20-2024 13:37-0500 Body weight 71.67 kg Ambrosio Brown DPM Work Phone: [facility] 11-20-2024 13:37-0500 Respiratory rate 18 /min Ambrosio Brown DPM Work Phone: [facility] 11-04-2024 10:14-0500 Body height 154.9 cm Ambrosio Brown DPM Work Phone: [facility] 11-04-2024 10:14-0500 Body mass index (BMI) [Ratio] 29.85 kg/m2 Ambrosio Brown DPM Work Phone: [facility] 11-04-2024 10:14-0500 Body weight 71.67 kg Ambrosio Brown DPM Work Phone: [facility] 11-04-2024 10:14-0500 Respiratory rate 18 /min Ambrosio Brown DPM Work Phone: [facility] 10-01-2024 13:28-0500 Body height 154.9 cm Abmrosio Brown DPM Work Phone: [facility] 10-01-2024 13:28-0500 Body mass index (BMI) [Ratio] 29.85 kg/m2 Ambrosio Brown DPM Work Phone: [facility] 10-01-2024 13:28-0500 Body weight 71.67 kg Ambrosio Brown DPM Work Phone: [facility] 10-01-2024 13:28-0500 Respiratory rate 16 /min Ambrosio Brown DPM Work Phone: [facility] 09-03-2024 16:07-0500 Body height 154.9 cm Ambrosio Brown DPM Work Phone: [facility] 09-03-2024 16:07-0500 Body mass index (BMI) [Ratio] 29.85 kg/m2 Ambrosio Brown DPM Work Phone: [facility] 09-03-2024 16:07-0500 Body weight 71.67 kg Ambrosio Brown DPM Work Phone: [facility] 09-03-2024 16:07-0500 Diastolic blood pressure 79 mm[Hg] Ambrosio Brown DPM Work Phone: [facility] 09-03-2024 16:07-0500 Heart rate 82 /min Ambrosio Brown DPM Work Phone: [facility] 09-03-2024 16:07-0500 Systolic blood pressure 128 mm[Hg] Ambrosio Brown DPM Work Phone: [facility] 08-30-2024 09:45-0500 Body mass index (BMI) [Ratio] 29.85 kg/m2 Sharmaine Damian-Milton DO Work Phone: [facility] 08-30-2024 09:45-0500 Body weight 71.67 kg Sharmaine Damian-Milton DO Work Phone: [facility] 08-30-2024 09:45-0500 Diastolic blood pressure 76 mm[Hg] Sharmaine Damian-Milton DO Work Phone: [facility] 08-30-2024 09:45-0500 Heart rate 67 /min Sharmaine Damian-Milton DO Work Phone: [facility] 08-30-2024 09:45-0500 SaO2% (BldA) [Mass fraction] 97 % Sharmaine Damian-Milton DO Work Phone: [facility] 08-30-2024 09:45-0500 Systolic blood pressure 122 mm[Hg] Sharmaine Damian-Milton DO Work Phone: [facility] 05-07-2024 08:28-0400 Body temperature 97.8 [degF] DO Sharmaine Damian-Milton Work Phone: [facility] 05-07-2024 08:28-0400 Diastolic blood pressure 70 mm[Hg] DO Sharmaine Damian-Milton Work Phone: [facility] 05-07-2024 08:28-0400 Heart rate 62 /min DO Sharmaine Damian-Milton Work Phone: [facility] 05-07-2024 08:28-0400 Respiratory rate 18 /min DO Sharmaine Damian-Milton Work Phone: [facility] 05-07-2024 08:28-0400 SaO2% (BldA) [Mass fraction] 97 % DO Sharmaine Damian-Milton Work Phone: [facility] 05-07-2024 08:28-0400 Systolic blood pressure 114 mm[Hg] DO Sharmaine Damian-Milton Work Phone: [facility] 05-07-2024 05:19-0400 Body weight 70 kg DO Sharmaine Damian-Milton Work Phone: [facility] 05-04-2024 21:45-0400 Body height 157.48 cm DO Sharmaine Damian-Milton Work Phone: [facility] 05-04-2024 20:19-0400 Diastolic blood pressure 72 mm[Hg] DO Sharmaine Damian-Milton Work Phone: [facility] 05-04-2024 20:19-0400 Heart rate 62 /min DO Sharmaine Damian-Milton Work Phone: [facility] 05-04-2024 20:19-0400 Respiratory rate 18 /min DO Sharmaine Damian-Milton Work Phone: [facility] 05-04-2024 20:19-0400 SaO2% (BldA) [Mass fraction] 98 % DO Sharmaine Damian-Milton Work Phone: [facility] 05-04-2024 20:19-0400 Systolic blood pressure 161 mm[Hg] DO Sharmaine Damian-Milton Work Phone: [facility] 05-04-2024 16:14-0400 Body temperature 98.2 [degF] DO Sharmaine Damian-Milton Work Phone: [facility] 05-04-2024 16:10-0400 Body height 157.48 cm DO Sharmaine Damian-Milton Work Phone: [facility] 05-04-2024 16:10-0400 Body weight 69.4 kg DO Sharmaine Damian-Milton Work Phone: [facility] 04-09-2024 11:14-0400 Body height 157.48 cm DO Sharmaine Damian-Milton Work Phone: [facility] 04-09-2024 11:14-0400 Body mass index (BMI) [Ratio] 27.4 kg/m2 DO Sharmaine Damian-Milton Work Phone: [facility] 04-09-2024 11:14-0400 Body temperature 97.6 [degF] DO Sharmaine Damian-Milton Work Phone: [facility] 04-09-2024 11:14-0400 Body weight 68.03 kg DO Sharmaine Damian-Milton Work Phone: [facility] 04-09-2024 11:14-0400 Diastolic blood pressure 66 mm[Hg] DO Sharmaine Damian-Milton Work Phone: [facility] 04-09-2024 11:14-0400 Heart rate 64 /min DO Sharmaine Damian-Milton Work Phone: [facility] 04-09-2024 11:14-0400 Respiratory rate 16 /min DO Sharmaine Damian-Milton Work Phone: [facility] 04-09-2024 11:14-0400 SaO2% (BldA) [Mass fraction] 96 % DO Sharmaine Damian-Milton Work Phone: [facility] 04-09-2024 11:14-0400 Systolic blood pressure 116 mm[Hg] DO Sharmaine Damian-Milton Work Phone: [facility] 03-28-2024 10:46-0400 Blood Pressure Location CARLA JON [facility] 03-28-2024 10:46-0400 Body temperature 96.8 [degF] CARLA JON [facility] 03-28-2024 10:46-0400 Diastolic blood pressure 68 mm[Hg] CARLA LE[facility] 03-28-2024 10:46-0400 Heart rate 64 /min CAR[facility] LEIGH [facility] 03-28-2024 10:46-0400 Respiratory rate 18 /min CARLA LEIGH [facility] 03-28-2024 10:46-0400 Systolic blood pressure 120 mm[Hg] CARLA LEIGH [facility] 12-01-2023 10:22-0500 Body mass index (BMI) [Ratio] 28.23 kg/m2 Shamraine Damian-Milton DO Work Phone: [facility] 12-01-2023 10:22-0500 Body weight 67.77 kg Sharmaine Damian-Milton DO Work Phone: [facility] 12-01-2023 10:22-0500 Diastolic blood pressure 78 mm[Hg] Sharmaine Damian-Milton DO Work Phone: [facility] 12-01-2023 10:22-0500 Heart rate 62 /min Sharmaine Damian-Milton DO Work Phone: [facility] 12-01-2023 10:22-0500 SaO2% (BldA) [Mass fraction] 98 % Sharmaine Damian-Milton DO Work Phone: [facility] 12-01-2023 10:22-0500 Systolic blood pressure 124 mm[Hg] Sharmaine Damian-Milton DO Work Phone: [facility] 10-10-2023 12:30-0500 Body height 157.48 cm Carissa Dias Other [employer] Other 10-10-2023 12:30-0500 Body mass index (BMI) [Ratio] 28.16 kg/m2 Carissa Canoo Other [employer] Other 10-10-2023 12:30-0500 Body temperature 97.6 [degF] Carissa Canoo Other [facility] Other 10-10-2023 12:30-0500 Body weight 69.85 kg Carissa Canoo Other [facility] Other 10-10-2023 12:30-0500 Diastolic blood pressure 68 mm[Hg] Carissa Canoo Other [facility] Other 10-10-2023 12:30-0500 SaO2% (BldA) [Mass fraction] 98 % Carissa Canoo Other [facility] Other 10-10-2023 12:30-0500 Systolic blood pressure 116 mm[Hg] Carissa Canoo Other [facility] [employer] Other 04-10-2023 10:45-0400 Body height 157.48 cm Carissa Canoo Other [employer] Other 04-10-2023 10:45-0400 Body mass index (BMI) [Ratio] 29.63 kg/m2 Carissa Canoo Other [facility] Other 04-10-2023 10:45-0400 Body temperature 97.3 [degF] Carissa Canoo Other [facility] Other 04-10-2023 10:45-0400 Body weight 73.48 kg Carissa Canoo Other [facility] Other 04-10-2023 10:45-0400 Diastolic blood pressure 62 mm[Hg] Carissa Dias Other [facility] Other 04-10-2023 10:45-0400 SaO2% (BldA) [Mass fraction] 98 % Carissa Dias Other [facility] Other 04-10-2023 10:45-0400 Systolic blood pressure 110 mm[Hg] Carissa Dias Other [facility] Other 03-31-2023 09:18-0400 Diastolic blood pressure 66 mm[Hg] DO Sharmaine Damian-Milton Work Phone: [facility] 03-31-2023 09:18-0400 Heart rate 58 /min DO Sharmaine Damian-Milton Work Phone: [facility] 03-31-2023 09:18-0400 Respiratory rate 16 /min DO Sharmaine Damian-Milton Work Phone: [facility] 03-31-2023 09:18-0400 SaO2% (BldA) [Mass fraction] 98 % DO Sharmaine Damian-Milton Work Phone: [facility] 03-31-2023 09:18-0400 Systolic blood pressure 128 mm[Hg] DO Sharmaine Damian-Milton Work Phone: [facility] 03-31-2023 07:34-0400 Body height 157.48 cm DO Sharmaine Damian-Milton Work Phone: [facility] 03-31-2023 07:34-0400 Body temperature 98.2 [degF] DO Sharmaine Damian-Milton Work Phone: [facility] 03-31-2023 07:34-0400 Body weight 74.84 kg DO Sharmaine Wong Work Phone: [facility] 03-28-2023 12:54-0400 Blood Pressure Location CARLA LEIGH [facility] 03-28-2023 12:54-0400 Diastolic blood pressure 74 mm[Hg] CARLA LEIGH [facility] 03-28-2023 12:54-0400 Heart rate 67 /min CARLA LEIGH [facility] 03-28-2023 12:54-0400 Respiratory rate 16 /min CARLA LEIGH [facility] 03-28-2023 12:54-0400 Systolic blood pressure 132 mm[Hg] CAR[facility] LE[facility] 01-16-2023 12:15-0400 Body height 157.48 cm Carissa Dias Other [facility] [employer] Other 01-16-2023 12:15-0400 Body mass index (BMI) [Ratio] 29.63 kg/m2 Carissa Dias Other [employer] Other 01-16-2023 12:15-0400 Body temperature 97.3 [degF] Carissa Dias Other [facility] Other 01-16-2023 12:15-0400 Body weight 73.48 kg Carissa Dias Other [facility] Other 01-16-2023 12:15-0400 Diastolic blood pressure 74 mm[Hg] Carissa Dias Other [facility] Other 01-16-2023 12:15-0400 SaO2% (BldA) [Mass fraction] 96 % Carissa Dias Other [facility] Other 01-16-2023 12:15-0400 Systolic blood pressure 116 mm[Hg] Carissa Dias Other [employer] Other 12-23-2022 08:00-0500 Inhaled oxygen flow rate 2 L/min DO Sharmaine Damian-Milton Work Phone: [facility] 12-23-2022 05:34-0500 Body weight 73 kg DO Sharmaien Damian-Milton Work Phone: [facility] 12-23-2022 04:00-0500 Body temperature 98 [degF] DO Sharmaine Damian-Milton Work Phone: [facility] 12-23-2022 04:00-0500 Diastolic blood pressure 53 mm[Hg] DO Sharmaine Damian-Milton Work Phone: [facility] 12-23-2022 04:00-0500 Heart rate 70 /min DO Sharmaine Damian-Milton Work Phone: [facility] 12-23-2022 04:00-0500 Respiratory rate 14 /min DO Sharmaine Damian-Milton Work Phone: [facility] 12-23-2022 04:00-0500 SaO2% (BldA) [Mass fraction] 95 % DO Sharmaine Damian-Milton Work Phone: [facility] 12-23-2022 04:00-0500 Systolic blood pressure 102 mm[Hg] DO Sharmaine Damian-Milton Work Phone: [facility] 12-22-2022 11:48-0500 Body height 157.48 cm DO Sharmaine Damian-Milton Work Phone: [facility] 12-22-2022 11:48-0500 Body mass index (BMI) [Ratio] 28.9 kg/m2 DO Sharmaine Damian-Milton Work Phone: [facility] 11-12-2022 04:08-0500 Diastolic blood pressure 89 mm[Hg] DO Sharmaine Damian-Milton Work Phone: [facility] 11-12-2022 04:08-0500 Heart rate 89 /min DO Sharmaine Damian-Milton Work Phone: [facility] 11-12-2022 04:08-0500 Respiratory rate 16 /min DO Sharmaine Damian-Milton Work Phone: [facility] 11-12-2022 04:08-0500 SaO2% (BldA) [Mass fraction] 96 % DO Sharmaine Damian-Milton Work Phone: [facility] 11-12-2022 04:08-0500 Systolic blood pressure 175 mm[Hg] DO Sharmaine Damian-Milton Work Phone: [facility] 11-11-2022 23:42-0500 Body height 157.48 cm DO Sharmaine Damian-Milton Work Phone: [facility] 11-11-2022 23:42-0500 Body weight 77.4 kg DO Sharmaine Damian-Milton Work Phone: [facility] 11-11-2022 23:41-0500 Body temperature 98 [degF] DO Sharmaine Damian-Milton Work Phone: [facility] 06-22-2022 09:44-0400 Body height 157.48 cm DO Sharmaine Damian-Milton Work Phone: [facility] 06-22-2022 09:44-0400 Body weight 74.38 kg DO Sharmaine Damian-Milton Work Phone: [facility] 05-31-2022 13:30-0400 Body height 157.48 cm Carissa Dias Other [employer] Other 05-31-2022 13:30-0400 Body mass index (BMI) [Ratio] 29.63 kg/m2 Carissa Dias Other [employer] Other 05-31-2022 13:30-0400 Body temperature 97.1 [degF] Carissa Dias Other [facility] Other 05-31-2022 13:30-0400 Body weight 73.48 kg Carissa Dias Other [employer] [facility] Other 05-31-2022 13:30-0400 Diastolic blood pressure 64 mm[Hg] Carissa Dias Other [facility] Other 05-31-2022 13:30-0400 SaO2% (BldA) [Mass fraction] 97 % Carissa Dias Other [employer] Other 05-31-2022 13:30-0400 Systolic blood pressure 112 mm[Hg] Carissa Dias Other [employer] Other Encounters Encounter Date Encounter Type Care Provider Facility Start: 05-09-2025 End: 05-09-2025 Emergency department patient visit Sharmaine Wong DO Work Phone: -Emergency Room Work Phone: Start: 05-01-2025 End: 05-01-2025 Office outpatient visit 25 minutes Sharmaine Wong DO Work Phone: [facility] Comment on above: Type 2 diabetes federico itus with stage 3a chronic kidney disease, without long-term current use of insulin (HCC) (Primary Dx); Stage 3a chronic kidney disease (CMS-HCC); Essential hypertension ; Hyperlipidemia LDL goal <100 ; Carotid stenosis, bilateral Start: 05-01-2025 End: 05-01-2025 ambulatory SHARMAINE WONG Not Available Start: 04-15-2025 End: 04-15-2025 Patient encounter procedure 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 -[facility] Work Phone: Start: 04-15-2025 End: 04-15-2025 ambulatory Carissa Dias Facility:[facility] Start: 12-26-2024 End: 12-26-2024 ambulatory SHARMAINE WONG Not Available Start: 12-26-2024 End: 12-26-2024 Office outpatient visit 25 minutes Sharmaine Wong DO Work Phone: [facility] Comment on above: Essential hypertensi on (CMS/HCC) (Primary Dx); Hyperlipidemia LDL goal <100 (CMS/HCC) ; Type 2 diabetes mellitus with stage 3a chronic kidney disease, without long-term current use of insulin (HCC) (CMS/HCC); Carotid stenosis, bilateral; Stage 3a chronic kidney disease (HCC) (CMS/HCC); TIA (transient ischemic attack); Dysthymia (CMS/HCC) ; Encounter for screening mammogram for malignant neoplasm of breast; Arthritis Start: 12-26-2024 End: 12-26-2024 ambulatory SHARMAINE WONG Not Available Start: 12-25-2024 End: 12-25-2024 Patient encounter procedure Sharmaine Wong DO Work Phone: [facility] Start: 12-25-2024 End: 12-25-2024 ambulatory Sharmaine Wong DO Work Phone: [facility] Work Phone: Start: 12-04-2024 End: 12-04-2024 Postop follow up visit related to original px Ambrosio Mcghee DPM Work Phone: [facility] Comment on above: Plantar fasciitis (P rimary Dx); Exostosis of right foot; Contracture of right ankle Start: 12-04-2024 End: 12-04-2024 ambulatory AMBROSIO MCGHEE Not Available Start: 12-04-2024 End: 12-04-2024 Bamboo flowsheet Ambrosio cMghee DPM Work Phone: [facility] Start: 12-04-2024 End: 12-04-2024 Bamboo flowsheet Ambrosio Mcghee DPM Work Phone: [facility] Start: 11-20-2024 End: 11-20-2024 Bamboo flowsheet Ambrosio Mcghee DPM Work Phone: [facility] Start: 11-20-2024 End: 11-20-2024 Bamboo flowsheet Ambrosio Mcghee DPM Work Phone: [facility] Start: 11-20-2024 End: 11-20-2024 ambulatory AMBROSIO MCGHEE Not Available Start: 11-20-2024 End: 11-20-2024 Postop follow up visit related to original px Ambrosio Mcghee DPM Work Phone: [facility] Comment on above: Exostosis of right f oot (Primary Dx); Plantar fasciitis; Contracture of right ankle Start: 11-08-2024 End: 11-08-2024 Patient encounter procedure Sharmaine Wong DO Work Phone: [facility] Work Phone: Start: 11-08-2024 End: 11-08-2024 ambulatory Sharmaine Wong DO Work Phone: [facility] Work Phone: Start: 11-04-2024 End: 11-04-2024 Bamboo flowsstormy Mcghee DPM Work Phone: [facility] Start: 11-04-2024 End: 11-04-2024 Bamboo flowsheet Ambrosio Mcghee DPM Work Phone: [facility] Start: 11-04-2024 End: 11-04-2024 External Result Encounter Ambrosio Mcghee DPM Work Phone: [facility] Unsolicited Start: 11-04-2024 End: 11-04-2024 Patient encounter procedure Sharmaine Damian-Milton DO Work Phone: [facility] Start: 11-04-2024 Encounter for other preprocedural examination Ambrosio Mcghee [facility] Start: 11-04-2024 End: 11-04-2024 Office outpatient visit 25 minutes Ambrosio Mcghee DPM Work Phone: [facility] Comment on above: Exostosis of right f oot (Primary Dx); Plantar fasciitis; Contracture of right ankle Start: 11-04-2024 End: 11-04-2024 ambulatory Sharmaine Damian-Milton DO Work Phone: [facility] Work Phone: Start: 10-01-2024 End: 10-01-2024 Bamboo flowsheet Ambrosio Mcghee DPM Work Phone: [facility] Start: 10-01-2024 End: 10-01-2024 Bamboo flowsheet Ambrosio Mcghee DPM Work Phone: [facility] Start: 10-01-2024 End: 10-29-2024 Telephone encounter Ambrosio Mcghee DPM Work Phone: [facility] Comment on above: Procedure (Surgery i n October) Start: 10-01-2024 End: 10-01-2024 Office outpatient visit 15 minutes Ambrosio Mcghee DPM Work Phone: [facility] Comment on above: Exostosis of right f oot (Primary Dx); Plantar fasciitis Start: 10-01-2024 End: 10-01-2024 ambulatory AMBROSIO MCGHEE Not Available Start: 09-03-2024 End: 09-03-2024 Office outpatient visit 15 minutes Ambrosio Mcghee DPM Work Phone: [facility] Comment on above: Exostosis of right f oot (Primary Dx); Plantar fasciitis Start: 09-03-2024 End: 09-03-2024 ambulatory AMBROSIO MCGHEE Not Available Start: 09-03-2024 End: 09-03-2024 Bamboo flowsheet Ambrosio Mcghee DPM Work Phone: [facility] Start: 09-03-2024 End: 09-03-2024 Bamboo flowsheet Ambrosio Mcghee DPM Work Phone: [facility] Start: 08-30-2024 End: 08-30-2024 Office outpatient visit 25 minutes Sharmaine Wong DO Work Phone: [facility] Comment on above: Medicare annual well ness visit, subsequent (Primary Dx); ACP (advance care planning); Type 2 diabetes mellitus with stage 3a chronic kidney disease, without long-term current use of insulin (HCC) ([facility]); Essential hypertension ([facility]); Carotid stenosis, bilateral; Hyperlipidemia LDL goal <100 ([facility]); Arthritis of left knee; Stage 3a chronic kidney disease (HCC) ([facility]); TIA (transient ischemic attack); BMI 29.0-29.9,adult Start: 08-30-2024 End: 08-30-2024 Patient encounter procedure Sharmaine Wong DO Work Phone: [facility] Work Phone: Start: 08-30-2024 End: 08-30-2024 ambulatory SHARMAINE WONG Not Available Start: 05-08-2024 End: 05-08-2024 ambulatory SHARMAINE WONG Not Available Start: 05-04-2024 End: 05-07-2024 Evaluation and management of inpatient DO Sharmaine Wong Work Phone: [facility] Work Phone: Start: 05-04-2024 End: 05-07-2024 observation encounter DO Sharmaine MuñozMilton Work Phone: [facility] Work Phone: Start: 04-09-2024 End: 04-09-2024 ambulatory DO Sharmainera MuñozMilton Work Phone: [facility] Work Phone: Start: 04-09-2024 End: 04-09-2024 Patient encounter procedure DO Sharmaine DamianZoyaMilton Work Phone: [facility] Vascular Surgery Work Phone: Start: 03-28-2024 End: 03-28-2024 ambulatory JERALD-Era JON Facility:[facility] Start: 03-28-2024 End: 03-28-2024 Patient encounter procedure CARLA JON [facility] [place] Start: 12-01-2023 End: 12-01-2023 Office outpatient visit 25 minutes Sharmaine Jessica Wong DO Work Phone: [facility] Comment on above: Type 2 diabetes federico itus with stage 3a chronic kidney disease, without long-term current use of insulin (HCC) (CMS/HCC) (Primary Dx); Stage 3a chronic kidney disease (HCC) (CMS/HCC); Hyperlipidemia LDL goal <100 (CMS/HCC); Essential hypertension (CMS/HCC); BMI 28.0-28.9,adult; Viral upper respiratory tract infection Start: 10-10-2023 End: 10-10-2023 Patient encounter procedure DO Sharmaine DamianDashay Work Phone: [facility]-Ultrasound [facility] Vascular Start: 10-10-2023 End: 10-10-2023 ambulatory DO Sharmaine Daliay Work Phone: [facility] Work Phone: Start: 09-18-2023 End: 09-18-2023 ambulatory DO Sharmaine Damian-Bennett Work Phone: [facility] Work Phone: Start: 09-18-2023 End: 09-18-2023 Patient encounter procedure DO Sharmaine Damian-Bennett Work Phone: [facility]-Lab [facility] Start: 04-10-2023 End: 04-10-2023 Patient encounter procedure Carissa Dias [facility] Vascular Surgery Start: 04-10-2023 End: 04-10-2023 ambulatory DO Sharmaine Damian-Milton Work Phone: [facility] Work Phone: Start: 03-31-2023 End: 03-31-2023 Admission to same day surgery center DO Sharmaine Damian-Milton Work Phone: [facility]-Digestive Health Work Phone: Start: 03-29-2023 End: 03-29-2023 Patient encounter procedure Jazmin MAURO [facility] Start: 03-28-2023 End: 03-28-2023 Lab Drop off CARLA JON [facility] Start: 03-28-2023 End: 03-28-2023 Patient encounter procedure CARLA JON [facility] Start: 01-16-2023 End: 01-16-2023 ambulatory Carissa Petesriramdamian Other [facility] Other Start: 01-16-2023 Patient encounter procedure Carissa Dias [facility] Start: 12-27-2022 End: 12-27-2022 ambulatory Scott Sellers Other [facility] Other Start: 12-27-2022 Telephone encounter Scott Verito [facility] Vascular Surgery Start: 12-22-2022 End: 12-23-2022 Evaluation and management of inpatient DO Sharmaine Damian-Milton Work Phone: [facility] Work Phone: Start: 12-14-2022 End: 12-14-2022 ambulatory DO Sharmaine Damian-Milton Work Phone: [facility] Work Phone: Start: 12-14-2022 End: 12-14-2022 Patient encounter procedure DO Sharmaine Damian-Milton Work Phone: [facility]-Pre-Surgical Testing Work Phone: Start: 12-07-2022 End: 12-07-2022 ambulatory Scott Sellers Other [facility] Other Start: 12-07-2022 Telephone encounter Scott Verito [facility] Vascular Surgery Start: 12-05-2022 End: 12-05-2022 ambulatory DO Sharmaine Damian-Milton Work Phone: [facility] Work Phone: Start: 12-05-2022 End: 12-05-2022 Patient encounter procedure DO Sharmaine Damian-Milton Work Phone: [facility]-Ultrasound [facility] Vascular Start: 11-22-2022 End: 11-22-2022 ambulatory DO Sharmaine Damian-Milton Work Phone: [facility] Work Phone: Start: 11-22-2022 End: 11-22-2022 Patient encounter procedure DO Sharmaine Damian-Milton Work Phone: [facility]-Lab [facility] [place] Work Phone: Start: 11-15-2022 End: 11-15-2022 ambulatory Imad Asaad Other [employer] [employer] Other Start: 11-15-2022 Telephone encounter Imad Asaad [facility] [employer] Start: 11-11-2022 End: 11-12-2022 Emergency department patient visit DO Sharmaine Damian-Milton Work Phone: [facility]-Emergency Room Work Phone: Start: 07-20-2022 End: 07-20-2022 ambulatory Carissa Dias Other [facility] Other Start: 07-20-2022 Telephone encounter Carissa Reynolds [facility] Start: 06-29-2022 End: 06-29-2022 Patient encounter procedure DO Sharmaine Damian-Milton Work Phone: [facility]-Lab [facility] Start: 06-22-2022 End: 06-22-2022 Patient encounter procedure DO Sharmaine Damian-Milton Work Phone: [facility]-MRI [facility] [place] Start: 06-10-2022 End: 06-10-2022 Patient encounter procedure DO Sharmaine Damian-Milton Work Phone: [facility] [place] Start: 06-03-2022 End: 06-03-2022 Patient encounter procedure DO Sharmaine Damian-Milton Work Phone: [facility]-Ultrasound [facility] [place] Start: 05-31-2022 End: 05-31-2022 ambulatory Carissa Dias Other [employer] [employer] Other Start: 05-31-2022 End: 05-31-2022 Patient encounter procedure Carissa BECERRA [facility] Start: 05-25-2022 End: 05-25-2022 Patient encounter procedure DO Sharmaine Wong Work Phone: [facility]-Lab [facility] Start: 12-10-2020 End: 12-11-2020 Patient encounter procedure JAZMIN MAURO Facility:[facility]1 Procedures Date Procedure Procedure Detail Performing Clinician Start: 05-09-2025 Plain X-ray of left hip Sharmaine Wong DO Work Phone: Start: 05-09-2025 X-ray of lumbar spin e, four or more views Sharmaine Wong DO Work Phone: Start: 05-01-2025 Hemoglobin glycosylated a1c Sharmaine Wong DO Work Phone: Start: 12-26-2024 Mammography Sharmaine Hook DO Work Phone: Start: 11-04-2024 Basic metabolic pane l calcium total Ambrosio Mcghee DPM Work Phone: Start: 11-04-2024 Complete blood count with white cell differential, automated Ambrosio Mcghee DPM Work Phone: Start: 08-30-2024 Hemoglobin glycosylated a1c Sharmaine Wong DO Work Phone: Start: 05-06-2024 MRI of head DO Sharmaine Wong Work Phone: Start: 05-04-2024 CT angiography of head DO Sharmaine Gómezy Work Phone: Start: 05-04-2024 CT angiography of ne ck vessels DO Sharmaine Damian-Milton Work Phone: Start: 05-04-2024 CT of head without contrast DO Sharmaine Wong Work Phone: Start: 05-04-2024 SARS-CoV-2, Influenz a & RSV (PCR) DO Sharmaine Wong Work Phone: Start: 05-04-2024 Urine culture DO Sharmaine Wong Work Phone: Start: 04-09-2024 Doppler ultrasonogra phy of bilateral carotid arteries DO Sharmaine Wong Work Phone: Start: 12-01-2023 Hemoglobin glycosylated a1c Sharmaine Wong DO Work Phone: Start: 11-09-2023 Mammography Sharmaine [...] wi th dilation of urethral stricture CARLA LEIGH Comment on above: RT ureteroscopy Start: 11-20-2008 Cystoscopic removal of ureteric stent CARLA JON Start: 11-12-2008 Extracorporeal shock wave lithotripsy of calculus of kidney CARLA JON Comment on above: RT Start: 08-18-2004 Extracorporeal shock wave lithotripsy of calculus of kidney CARLA JON Comment on above: RT retro/ureteropyel ogram/RT ESWL/double J stent placement Hysterectomy CARLA JON Screening for malign ant neoplasm of colon Carissa Briseno Plan of Treatment Date Care Activity Detail Author Start: 11-15-2032 Screening for malign ant neoplasm of colon [facility] Start: 10-28-2026 Glaucoma screening Diabetes: R etinopathy Screening [facility] Start: 12-26-2025 Screening for malign ant neoplasm of breast Mammogram [facility] Start: 12-25-2025 Urine screening for protein Diabetes: Urine Protein Screening [facility] Start: 09-02-2025 End: 09-02-2025 Patient encounter procedure 09/02/2025 10:15 AM EST Office Visit [facility] [address] [place] [id number] Sharmaine Wong, DO [address] [place] [address] [facility] Start: 08-30-2025 Medicare Annual Well ness (AWV) Medicare Annual Wellness (AWV) [facility] Start: 08-01-2025 Hemoglobin A1c measurement Charu betes: Hemoglobin A1C [facility] Start: 06-23-2025 Influenza vaccination Influenz a Vaccine (#1) [facility] Start: 05-01-2025 End: 05-01-2025 Patient encounter procedure 05/01/2025 10:45 AM EDT Office Visit [facility] [address] [place] [phone] Sharmaine Wong, DO [address] [place] [address] [facility] Start: 03-27-2025 Hemoglobin A1c measurement Charu betes: Hemoglobin A1C [facility] Start: 12-26-2024 End: 12-26-2024 Patient encounter procedure 12/26/2024 9:30 AM EST Office Visit [facility] [address] [place] [id number] Sharmaine Wong, DO [address] [place] [address] [facility] Start: 12-04-2024 End: 12-04-2024 Patient encounter procedure 12/04/2024 2:40 PM EST Office Visit [facility] [address] [place] [phone] Ambrosio Mcghee DPM [address] [address] Plantar fasciitis (Primary Dx); Exostosis of right foot; Contracture of right ankle [facility] Comment on above: Plantar fasciitis (P rimary Dx); Exostosis of right foot; Contracture of right ankle Start: 11-30-2024 Hemoglobin A1c measurement Charu betes: Hemoglobin A1C [facility] Start: 11-23-2024 Glaucoma screening Diabetes: R etinopathy Screening [facility] Start: 11-20-2024 End: 11-20-2024 Patient encounter procedure 11/20/2024 1:30 PM EST Office Visit [facility] [address] [place] [phone] Ambrosio Mcghee DPM [address] [address] [facility] Start: 11-09-2024 Screening for malign ant neoplasm of breast Mammogram [facility] Start: 11-04-2024 End: 11-04-2024 Patient encounter procedure 11/04/2024 10:20 AM EST Office Visit [facility] [address] [place] [phone] Ambrosio Mcghee DPM [address] [address] Exostosis of right foot (Primary Dx); Plantar fasciitis; Contracture of right ankle [facility] Comment on above: Exostosis of right f oot (Primary Dx); Plantar fasciitis; Contracture of right ankle Start: 10-01-2024 End: 10-01-2024 Patient encounter procedure [facility] Comment on above: Exostosis of right f oot (Primary Dx); Plantar fasciitis Start: 09-20-2024 Medicare Annual Well ness (AWV) Medicare Annual Wellness (AWV) [facility] Start: 09-18-2024 Urine screening for protein Diabetes: Urine Protein Screening [facility] Start: 09-03-2024 End: 09-03-2024 Patient encounter procedure 09/03/2024 4:20 PM EST Office Visit [facility] [address] [place] [phone] Ambrosio Mcghee DPM [address] [address] [facility] Start: 05-08-2024 End: 05-08-2024 Patient encounter procedure 05/08/2024 9:45 AM EDT Office Visit [facility] [address] [place] [phone] Sharmaine Wong, DO [address] [place] [address] [facility] Start: 05-06-2024 [facility] Start: 05-05-2024 [facility] Start: 05-04-2024 MRI of head MR head/brain wo con [facility] Start: 05-04-2024 Referral to neurologist [facility] Start: 05-04-2024 [facility] Start: 05-04-2024 Hospital admission [facility] Start: 05-04-2024 Telemedicine consult ation with patient [facility] Start: 05-04-2024 Bacteria identified in Blood by Culture [facility] Start: 05-04-2024 Bacteria identified in Urine by Culture [facility] Start: 05-04-2024 Blood culture for bacteria, including anaerobic screen Blood Culture [facility] Start: 02-29-2024 Hemoglobin A1c measurement Charu betes: Hemoglobin A1C [facility] Start: 10-10-2023 Doppler ultrasonogra phy of bilateral carotid arteries US carotid doppler [facility] Start: 10-10-2023 US.doppler Carotid arteries - [facility] Start: 04-10-2023 Doppler ultrasonogra phy of bilateral carotid arteries US carotid doppler [facility] Start: 04-10-2023 US.doppler Carotid arteries - [facility] Start: 03-31-2023 [facility] Start: 12-23-2022 [facility] Start: 12-22-2022 Hospital admission [facility] Start: 12-22-2022 Sleep disorder assessment [facility] Start: 12-05-2022 Doppler ultrasonogra phy of bilateral carotid arteries US carotid doppler [facility] Start: 12-05-2022 US.doppler Carotid arteries - [facility] Start: 11-11-2022 Plain chest X-ray XR chest 1V portab le [facility] Start: 11-11-2022 XR Chest Single view [facility] Start: 06-22-2022 MRI of head MR head/brain wo con [facility] Start: 06-22-2022 End: 06-22-2022 Patient encounter procedure Departed [facility] [place] Start: 06-10-2022 End: 06-10-2022 Patient encounter procedure Departed [facility] [place] Start: 06-03-2022 Doppler ultrasonogra phy of bilateral carotid arteries US carotid doppler [facility] Start: 06-03-2022 End: 06-03-2022 Patient encounter procedure Departed [facility] [place] Start: 1950 Screening for malign ant neoplasm of colon [facility] Glucose measurement estimated from glycated hemoglobin [facility] Patient Education [facility] Work Phone: Patient referral [facility] Work Phone: US.doppler Carotid arteries - bilateral [facility] US.doppler Carotid arteries - bilateral [facility] Immunizations Immunization Date Immunization Notes Care Provider Delvis renee 08-23-2024 influenza, high dose seasonal, preservative-free Sharmaine Damian-Milton DO Work Phone: [facility] 08-23-2024 influenza virus vacc ine, unspecified formulation Sharmaine Damian-Milton DO Work Phone: [facility] 08-28-2023 influenza virus vacc ine, unspecified formulation CARLA LEIGH [facility] 08-28-2023 Influenza, High-dose Seasonal, Quadrivalent, Preservative Free Sharmaine Damian-Milton DO Work Phone: [facility] 06-30-2022 influenza virus vacc ine, unspecified formulation CARLA LEIGH [facility] 06-30-2022 influenza, high dose seasonal, preservative-free Sharmaine Damian-Milton DO Work Phone: [facility] 09-03-2021 COVID-19 mRNA, Comir falguni (Pfizer) DO Sharmaine Damian-Milton Work Phone: [facility] 09-01-2021 SARS-CoV-2 (COVID-19 ) Ad26 vaccine, recombinant CARLA LEIGH [facility] 08-13-2021 COVID-19 mRNA, Comir falguni (Pfizer) DO Sharmaine Damian-Milton Work Phone: [facility] 07-28-2021 SARS-CoV-2 (COVID-19 ) Ad26 vaccine, recombinant CARLA LEIGH [facility] 07-15-2021 influenza virus vacc ine, unspecified formulation CARLA LEIGH [facility] 07-15-2021 influenza, high dose seasonal, preservative-free Sharmaine Damian-Milton DO Work Phone: [facility] 06-30-2021 influenza virus vacc ine, unspecified formulation CARLA LEIGH [facility] 07-31-2020 influenza virus vacc ine, unspecified formulation CARLA LEIGH [facility] 07-31-2020 pneumococcal polysaccharide vaccine, 23 valent CARLA LEIGH [facility] 07-31-2020 Seasonal, trivalent, recombinant, injectable influenza vaccine, preservative free Sharmaine Damian-Milton DO Work Phone: [facility] 07-06-2020 influenza virus vacc ine, unspecified formulation CARLA LEIGH [facility] 12-21-2019 zoster vaccine recombinant CARLA LEIGH [facility] 10-17-2019 zoster vaccine recombinant CARLA LEIGH [facility] 07-01-2019 influenza virus vacc ine, live, attenuated, for intranasal use CARLA LEIGH [facility] 01-28-2019 pneumococcal conjuga te vaccine, 13 valent CARLA LEIGH [facility] 08-10-2018 influenza virus vacc ine, unspecified formulation CARLA LEIGH [facility] 11-02-2017 influenza virus vacc ine, unspecified formulation CARLA JON [facility] 01-20-2016 influenza, seasonal, injectable, preservative free Sharmaine Wong DO Work Phone: [facility] 01-20-2016 varicella virus vaccine ERIC MOREIRA LEIGH [facility] 07-21-2015 influenza virus vacc ine, unspecified formulation CARLA JON [facility] Payers Date Payer Category Payer Self-pay [id number] 2022 Private Health Insurance [id number] 2022 Unknown [employer] JEANA [id number] 2022-Present [address] [place] [address] [id number] 2017 Medicare [id number] 2017 Medicare [id number] 1959 Medicare [id number] 1959 Unknown [id number] 1952 Unknown [id number] [id number] .593 1952 Unknown [id number] 2.16.840.1.381322.3.579.2 .727 1952 Unknown [id number] 2.16.840.1.751055.3.579.2 .1259 1952 Unknown [id number] 2.16.840.1.794949.3.579.2 .1259 1952 Unknown [id number] 2.16.840.1.208907.3.579.2 .125 1952 Unknown [id number] 2.16.840.1.979904.3.579.2 .1259 1952 Unknown [id number] 2..840.1.085369.3.579.2 .1259 1952 Unknown [id number] 2.840.1.114831.3.579.2 .125 1952 Unknown [id number] 2.16.840.1.791452.3.579.2 .125 1952 Unknown [id number] 2..840.1.053112.3.579.2 .1259 1952 Unknown [id number] 2.840.1.509314.3.579.2 .1259 1952 Unknown [id number] 2.840.1.758613.3.579.2 .1259 Unknown [facility] [id number] Unknown [id number] 2.16.840.1.934561.3.579.2 .531 Unknown [id number] 2.16.840.1.869632.3.579.2 .531 Unknown [id number] 2.16.840.1.434844.3.579.2 .531 Unknown [id number] 2.16.840.1.050465.3.579.2 .531 Unknown [id number] [id number] .531 Social History Date Type Detail Facility Unknown if ever smoked [facility] Work Phone: Start: 12-01-2023 End: 08-30-2024 Sex Assigned At [facility] Start: 02-08-2021 End: 05-09-2025 Tobacco smoking status NHIS Never smoked tobacco (finding) [facility] Start: 1950 Sex Assigned At Female F [facility] Tobacco smoking status Never [facility] Start: 06-04-2023 Tobacco use and exposure Smokeless tobacco non-user [facility] Start: 12-01-2023 End: 05-01-2025 Alcohol intake Lifetime non-drinker (finding) [facility] Start: 12-01-2023 End: 08-30-2024 History of Social function [facility] Start: 06-04-2023 Alcohol Comment caffeine: 1 cu p of coffee a day [facility] Start: 1950 Sex Assigned At Not on file N [facility] Start: 11-05-2024 End: 12-25-2024 Sex Female (finding) [facility] Medical Equipment Procedure Code Equipment Code Equipment Original Text Equipment Identifier Dates Transcarotid artery revascularization (TCAR) Bare-metal carotid artery stent [id number] [facility] Start: 12-22-2022 Goals Date Patient Goal Desired Activity /State Functional Status Date Assessment Result Facility 05-07-2024 Functional status Patient at Baseline [facility] Work Phone: 03-28-2024 Functional Status N/A [facility] 03-28-2023 Functional Status N/A [facility] 12-23-2022 Functional status Patient at Baseline [facility] Work Phone: Mental Status Date Assessment Result Facility 05-07-2024 Cognitive function Cognitive Sta tus Patient at Baseline [facility] Work Phone: 12-23-2022 Cognitive function Cognitive Sta s Patient at Baseline [facility] Work Phone: Clinical Notes 05-31-2022 to 05-09-2025 Sharmaine Wong, DO - 05/01/2025 11:50 AM EDHillary Wong, DO - 05/01/2025 11:40 AM Ac Wong, DO - 05/01/2025 11:39 AM EDT Note Date & Type Note Facility 05-09-2025 Hospital Discharge instructions Additional Instructions Rest. Push fluids. Take [id number] Tylenol and Motrin as needed for pain or discomfort. Avoid the Motrin or ibuprofen while on the steroid. Take the prednisone 40 mg by mouth daily for the next 5 days. Apply ice for the first 24 hours. May rotate between ice and heat after 24 to 48 hours. Use gentle stretching exercises. Follow-up with your primary care provider in the next 3 to 5 days. Return here if symptoms persist or worsen. [facility] Work Phone: 05-01-2025 History of Present illness Narrative Associated Problem(s): Carotid stenosis, bilateral Continue with risk factor optimization Associated Problem(s): Hyperlipidemia LDL goal <100 -The importance of dietary modification, regular cardiovascular activity and compliance with any prescribed medication for usp management/control of lipids has been discussed. Since high cholesterol (especially LDL) is associated with an elevated risk of cardiovascular disease, which includes coronary artery disease, stroke and peripheral vascular disease, and has also been linked to diabetes and high blood pressure risks, by appropriately treating LDL, these risks can be reduced. Associated Problem(s): Essential hypertension I have reinforced importance of lifestyle modifications (healthy diet choices, regular exercise and weight management) for chcf control of blood pressure. Pt is aware of the increased risk of complications ( for example: stroke, heart failure, heart attack, kidney damage or ) when BP not adequately controlled. -Based on review of medications and current medical status; continuation of medications most appropriate. -Will continue to monitor on current rx Associated Problem(s): Stage 3a chronic kidney disease ([facility]) -Will continue to monitor the renal function [...] to decrease risk for progression to ESRD. Associated Problem(s): Type 2 diabetes mellitus with kidney complication, without long-term current use of insulin ([facility]) -At this appt, I reinforced the importance of dietary modification, routine exercise and weight control for chcf DM management and reduction in risk for [...] ID: Sarah Alfaro (: 1950) is a 75 y.o. female who presents for Routine 4 Mo Follow Up. HPI : Sarah is being seen today for a routine four month follow up. Lab results from 12/2024 are documented in EHR for reference. Care gaps indicate recommendation for an HbA1c and staff will obtain one in the office today. Diabetes Management -DM was diagnosed 08/2023 (IFG progressed to DM) -Associated complications: CKD 3a -Current Medications: diet controlled at this time -Pt does not check her bs at this time -Previous A1c completed: in 12/2024 = 6.8% -Most recent A1c: in 04/2025 = 6.6% -Last GISSELLE: 12/2024 -Last lipids: 12/2024 -Last DM eye exam completed: 10/28/24 -Findings on eye exam: No mention of DR. -Podiatry- she sees Dr Ambrosio Mcghee. She is doing well at this time. Current Outpatient Medications Medication Instructions amLODIPine (NORVASC) 5 mg, Oral, Daily aspirin 81 mg, Every 24 hours atorvastatin (LIPITOR) 80 mg, Oral, Daily escitalopram (LEXAPRO) 10 mg, Oral, Daily estradiol (ESTRACE) 1 g, 2 times weekly Meloxicam 15 mg, Oral, Daily metoprolol succinate XL (TOPROL-XL) 100 mg, Oral, Daily No Known Allergies Patient Active Problem List Diagnosis Arthritis of left knee Carotid stenosis, bilateral Dysthymia Essential hypertension Hyperlipidemia LDL goal <100 Type 2 diabetes mellitus with kidney complication, without long-term current use of insulin (HCC) Primary localized osteoarthrosis of ankle and foot Stage 3a chronic kidney disease (CMS-HCC) TIA (transient ischemic attack) Hypocitraturic calcium nephrolithiasis Social History Tobacco Use Smoking status: Never Smokeless tobacco: Never Substance Use Topics Alcohol use: Never Comment: caffeine: 1 cup of coffee a day Drug use: Never Review of Systems Constitutional: Negative for activity change, appetite change, fatigue and unexpected weight change. 05/01/2025: She has reconnected with a boyfriend from high school and is happy to have the relationship HENT: Negative for ear pain, hearing loss, [...] Mcghee 2022 and he did an injection. -04/2024: She has modified her shoe choice to have better arch support and this has really helped with sx management -08/2024- she has recently had injections for back and knee and reports SIGNIFICANT improvement in sx -She had surgery on her right foot with Dr Mcghee 11/12/2024 (midfoot exostectomy with plantar fasciotomy) -12/2024- she has been taking Naproxen, but it seems to be aggravating her stomach more. -04/2025- she reports the change to meloxicam has helped with her OA symptoms and no significant GI symptoms Skin: Negative for rash and wound. Neurological: Negative for dizziness, tremors, speech difficulty, weakness, numbness and headaches. Psychiatric/Behavioral: Negative for confusion, decreased concentration, hallucinations and sleep disturbance. Endocrine: Negative for polydipsia, polyphagia and polyuria. Allergic/Immunologic: Negative for immunocompromised state. Objective Vital signs: BP 132/76 Pulse 58 Wt 161 lb SpO2 98% BMI 30.42 kg/m Recent Results (from the past 12 weeks) POCT Glycated hemoglobin, total Collection Time: 05/01/25 11:32 AM Result Value Ref Range Hemoglobin A1C 6.6 Physical Exam Constitutional: General: She is not [...] Assessment/Plan Problem List Items Addressed This Visit Carotid [...] was stopped by Vascular Surgery) and statin Current Assessment & Plan Continue with risk factor optimization Essential hypertension Overview She is prescribed amlodipine and metoprolol Current Assessment & Plan I have reinforced importance of lifestyle modifications (healthy diet choices, regular exercise and weight management) for chcf control of blood pressure. Pt is aware of the increased risk of complications ( for example: stroke, heart failure, heart attack, kidney damage or ) when BP not adequately controlled. -Based on review of medications and current medical status; continuation of medications most appropriate. -Will continue to monitor on current rx Hyperlipidemia LDL goal <100 Overview Prescribed atorvastatin. Her LDL improved from 190 to 75 on 80 mg daily! 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 Since [...] without long-term current use of insulin (HCC) - Primary Overview Her IFG has progressed to DM (08/2023): A1c went from 6.1% in Jun 2022 to 7.0%. 12/01/2023: She made diet changes (really decreased the CHOs). She lost 10# and A1c came down to 5.9%! Advised that will change back to IFG is A1c remains <6.4% at next visit 04/2024 A1c=6.4%; 08/2024 A1c= 6.2%; 12/2024 A1c=6.8%; A1c=6.6% Current Assessment & Plan -At this appt, I reinforced the importance of dietary modification, routine exercise and weight control for chcf DM management and reduction in risk for [...] total (Completed) Stage 3a chronic kidney disease ([facility]) Overview 04/2024- eGFR stable 10/2024 eGFR=58 Current Assessment & Plan -Will continue to monitor the renal function [...] to decrease risk for progression to ESRD. Health Maintenance Topic Date Due Influenza Vaccine (1) 06/23/2025 Diabetes: Hemoglobin A1C 08/01/2025 Medicare Annual Wellness (AWV) 08/30/2025 Diabetes: Urine Protein Screening 12/25/2025 Mammogram 12/26/2025 Diabetes: Retinopathy Screening 10/28/2026 Colorectal Cancer Screening 11/15/2032 Pneumococcal Vaccine: 65+ Years Completed Immunization History Administered Date(s) Administered Influenza, High Dose Seasonal, Preservative Free 07/15/2021, 06/30/2022, 08/23/2024 Influenza, High-dose Seasonal, Quadrivalent, Preservative Free 08/28/2023 Influenza, Recombinant, injectable, preservative free 07/31/2020 Influenza, seasonal, injectable, preservative free 01/20/2016 Pfizer Purple Cap SARS-CoV-2 Vaccination 08/13/2021, 09/03/2021 Pneumococcal Conjugate PCV 13 01/28/2019 Pneumococcal Polysaccharide PPSV23 07/31/2020 Varicella 01/20/2016 Zoster, Recombinant 10/17/2019, 12/21/2019 I spent at least 30 minutes on the date of the service which included: time spent preparing to see the patient by reviewing last office note and chronic conditions, talking to the patient/documenting in the chart, examining the patient, placing orders in the chart and documenting in the chart after the visit. Protocols reviewed and updated. A collaborative plan of care has been created for pt regarding specific health concerns. Any barriers to care have been identified and addressed. Any part of this document that has been added/copied from other documents has been reviewed for accuracy and updated as appropriate at the time of the patient encounter. -Follow up in about 4 months (around 09/01/2025) for MW with [employer] and routine appt with me. Sharmaine Wong D.O. Board Certified [employer] [employer] Reporter documented in this encounter [facility] 04-15-2025 Evaluation note Diagnosis Onset Date Resolution Carotid stenosis, bilateral acute April 15, 2025 11:05am Non-smoker acute April 15 11:05am [facility] Work Phone: [phone] 399-998403-30-2025 History of Present illness Narrative* Sharmaine Wong DO - 01/19/2025 7:53 PM EDTAssociated Problem(s): Type 2 diabetes mellitus with kidney complication, without long-term currentuse of insulin ([facility]) -At this appt, I reinforced the importance of dietary modification, routine exercise and weight control for chcf DM management and reduction in risk for development and progression of complications (like vision loss, kidney failure, neuropathy, and increased risk of heart attack and stroke). Chart reviewed to make sure patient is up to date on screenings for DM related comorbidities (ie annual dilated eye exam, annual GISSELLE and other labs and reminded to do daily foot exams). * Sharmaine Wong DO - 01/19/2025 7:49 PM EDTAssociated Problem(s): Dysthymia (CMS/HCC) Her sx are doing fine on current rx. Based on review of patient's medications and current medical status; continuation of medications most appropriate. Will continue to monitor sx control * Sharmaine Wong DO - 01/19/2025 7:48 PM EDTAssociated Problem(s): TIA (transient ischemic attack) Continue with risk optimization efforts * Sharmaine Wong DO - 01/19/2025 7:47 PM EDTAssociated Problem(s): Stage 3a chronic kidney disease (HCC) [...] kidney function. * Sharmaine Wong DO - 01/19/2025 7:40 PM EDTAssociated Problem(s): Essential hypertension (CMS/HCC) BP continue to do well. Will continue current meds and dosing. 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 Since high cholesterol (especially LDL) is associated with an elevated risk of cardiovascular disease, which includes coronary artery disease, stroke and peripheral vascular disease, and has also been linked to diabetes and high blood pressure risks, by appropriately treating LDL, these risks can be reduced. * Sharmaine Wong DO - 12/26/2024 9:30 AM EST Images from the original note were not included. Subjective Patient ID: Sarah Alfaro (: 1950) is a 74 y.o. female who presents for Routine 4 Mo Follow Up. HPI : Sarah is being seen today for a routine four month follow up. She had lab work done for today's visit. The results and any recommendations will be reviewed with her. Care gaps indicate recommendation for a MMG- she last had it done on 11/09/23 at [facility]. She reports that she had to start taking naproxen 500mg daily again d/t the pain from arthritis. She feels it helps some, but not as good as it used to. She would like to discuss what she can take for arthritic pain that isn't too harsh on her stomach. Diabetes Management -DM was diagnosed 08/2023 (IFG progressed to DM) -Associated complications: CKD 3a -Current Medications: diet controlled at this time -Pt does not check her bs at this time -Previous A1c completed: in 08/2024 = 6.2% -Most recent A1c: in 12/2024 = 6.8% (worsening from previous; but remains reasonable) -Last GISSELLE: 11/2024 -Last lipids: 11/2024 -Last DM eye exam completed: 10/28/24 -Findings on eye exam: No mention of DR. -Podiatry- she sees Dr Ambrosio Mcghee. Since last appt: She had surgery on her right foot with Dr Mcghee 11/12/2024 (midfoot exostectomy with plantar fasciotomy) Current Outpatient Medications Medication Instructions amLODIPine (NORVASC) 5 mg, Oral, Daily aspirin 81 mg, Every 24 hours atorvastatin (LIPITOR) 80 mg, Oral, Daily escitalopram (Lexapro) 10 MG tablet TAKE 1 TABLET BY MOUTH EVERY DAY estradiol (ESTRACE) 1 g, 2 times weekly Meloxicam 15 mg, Oral, Daily metoprolol succinate XL (TOPROL-XL) 100 mg, Oral, Daily No Known Allergies Patient Active Problem List Diagnosis Arthritis of left knee Carotid stenosis, bilateral Dysthymia ([facility]) Essential hypertension ([facility]) Hyperlipidemia LDL goal <100 ([facility]) Type 2 diabetes mellitus with kidney complication, without long-term current use of insulin ([facility]) Primary localized osteoarthrosis of ankle and foot Stage 3a chronic kidney disease (HCC) ([facility]) TIA (transient ischemic attack) Hypocitraturic calcium nephrolithiasis Social History Tobacco Use Smoking status: Never Smokeless tobacco: Never Substance Use Topics Alcohol use: Never Comment: caffeine: 1 cup of coffee a day Drug use: Never Review of Systems Constitutional: Negative for activity [...] Mcghee 2022 and he did an injection. -04/2024: She has modified her shoe choice to have better arch support and this has really helped with sx management -08/2024- she has recently had injections for back and knee and reports SIGNIFICANT improvement in sx -She had surgery on her right foot with Dr Mcghee 11/12/2024 (midfoot exostectomy with plantar fasciotomy) -12/2024- she has been taking Naproxen, but it seems to be aggravating her stomach more. Skin: Negative for rash and wound. Neurological: Negative for dizziness, tremors, speech difficulty, weakness, numbness and headaches. Psychiatric/Behavioral: Negative for confusion, decreased concentration, hallucinations and sleep disturbance. Endocrine: Negative for polydipsia, polyphagia and polyuria. Allergic/Immunologic: Negative for immunocompromised state. Objective Vital signs: BP 108/62 Pulse 67 Wt 162 lb 3.2 oz SpO2 96% BMI 30.65 kg/m Recent Results (from the past 12 weeks) Basic metabolic panel Collection Time: 11/04/24 11:03 AM Result Value Ref Range Glucose 86 70 - 100 mg/dL BUN 21 7 - 25 mg/dL CREATININE 1.02 0.60 - 1.20 mg/dL ESTIMATED GFR 58.451 mL/Min Sodium 140 136 - 145 mmol/L Potassium, Bld 4.5 3.5 - 5.1 mmol/L Chloride 104 98 - 107 mmol/L Carbon Dioxide 31.4 (H) 21.0 - 31.0 mmol/L Anion Gap 9.1 6.0 - 15.0 meq/L Calcium 9.3 8.6 - 10.3 mg/dL CBC auto differential Collection Time: 11/04/24 11:03 AM Result Value Ref Range WBC 8.4 3.8 - 11.6 10*3/uL UNCORRECTED WHITE BLOOD COUNT 8.4 3.8 - 11.6 10*3/uL RBC 4.43 3.60 - 5.00 10*6/uL HEMOGLOBIN 14.2 11.8 - 15.4 g/dL HEMATOCRIT 42.0 34.0 - 46.4 % MCV 94.8 80 - 100 fL MCH 32.0 24.7 - 34.3 pg MCHC 33.8 32.0 - 35.0 g/dL RED CELL DISTRIBUTION WIDTH, RDW 13.4 11.9 - 15.3 % PLATELET COUNT 253 150 - 450 10*3/uL MEAN PLATELET VOLUME, MPV 9.5 6.3 - 10.7 fL NEUTROPHILS, % 61.4 . % LYMPHOCYTES, % 24.4 . % MONOCYTE/MACROPHAGE, % 9.4 . % EOSINOPHILS, % 3.6 . % BASOPHILS, % 1.2 . % NRBC 0.1 0 - 0.5 /100[WBC] NEUTROPHILS 5.1 1.8 - 7.7 10*3/uL LYMPHOCYTES 2.0 1.00 - 4.8 10*3/uL MONOCYTES 0.8 0.0 - 0.8 10*3/uL EOSINOPHILS 0.3 0.0 - 0.45 10*3/uL BASOPHILS 0.1 0.0 - 0.2 10*3/uL Lipid panel Collection Time: 12/25/24 9:59 AM Result Value Ref Range CHOLESTEROL 164 140 - 200 mg/dL HDL CHOLESTEROL 60 23 - 92 mg/dL TRIGLYCERIDE W/REFLEX 201 (H) 0 - 149 mg/dL LDL CHOLESTEROL,CALCULATED 64 0 - 100 mg/dL VLDL CHOLESTEROL 40 mg/dL CHOL/HDL RATIO 2.7 <5.0 Hepatic function panel Collection Time: 12/25/24 9:59 AM Result Value Ref Range TOTAL PROTEIN 6.7 6.4 - 8.9 g/dL ALBUMIN LEVEL 4.3 3.5 - 5.7 g/dL GLOBULIN 2.4 g/dL ALBUMIN/GLOBULIN RATIO 1.8 BILIRUBIN,TOTAL 1.3 (H) 0.3 - 1.0 mg/dL BILIRUBIN,DIRECT 0.20 (H) 0.03 - 0.18 mg/dL BILIRUBIN,INDIRECT 1.1 mg/dL ASPARTATE AMINO TRANSFERASE 19 13 - 39 U/L ALANINE AMINOTRANSFERASE 20 7 - 52 U/L ALKALINE PHOSPHATASE 72 34 - 104 U/L Hemoglobin a1c with eag Collection Time: 12/25/24 9:59 AM Result Value Ref Range HEMOGLOBIN A1C 6.8 (H) 4.3 - 5.6 % ESTIMATED AVERAGE GLUCOSE 148 mg/dL Microalbumin / creatinine urine ratio Collection Time: 12/25/24 11:35 AM Result Value Ref Range MICROALBUMIN, URINE <0.7 0.0 - 1.8 mg/dL CREATININE, URINE (RANDOM) 46.00 mg/dL MICROALBUMIN/CREATININE RATIO Test not performed 0.0 - 30.0 Physical Exam Constitutional: General: She is not [...] Assessment/Plan Problem List Items Addressed This Visit Carotid [...] was stopped by Vascular Surgery) and statin Essential hypertension ([facility]) - Primary Overview She is prescribed amlodipine and metoprolol Current Assessment & Plan BP continue to do well. Will continue current meds and dosing. Will continue to monitor Hyperlipidemia LDL goal <100 ([facility]) Overview Prescribed atorvastatin. Her LDL improved from 190 to 75 on 80 mg daily! 08/2023 LDL=53 04/2024 LDL=64 12/2024: AU=388; HDL=60; XV=670; LDL=64; TC/HDL=2.7 Current Assessment & Plan -The importance of dietary modification, regular cardiovascular activity and compliance with any prescribed medication for usp management/control of lipids has been discussed. Since [...] complication, without long-term current use of insulin ([facility]) Overview Her IFG has progressed to DM (08/2023): A1c went from 6.1% in Jun 2022 to 7.0%. 12/01/2023: She made diet changes (really decreased the CHOs). She lost 10# and A1c came down to 5.9%! Advised that will change back to IFG is A1c remains <6.4% at next visit 04/2024 A1c=6.4%; 08/2024 A1c= 6.2%; 12/2024 A1c=6.8% Current Assessment & Plan -At this appt, I reinforced the importance of dietary modification, routine exercise and weight control for chcf DM management and reduction in risk for development and progression of complications (like vision loss, kidney failure, neuropathy, and increased risk of heart attack and stroke). Chart reviewed to make sure patient is up to date on screenings for DM related comorbidities (ie annual dilated eye exam, annual GISSELLE and other labs and reminded to do daily foot exams). Stage 3a chronic kidney disease (HCC) ([facility]) Overview 04/2024- eGFR stable 10/2024 eGFR=58 Current Assessment & Plan -We will continue [...] on ASA Current Assessment & Plan Continue with risk optimization efforts Dysthymia ([facility]) Overview Prescribed escitalopram Current Assessment & Plan Her sx are doing fine on current rx. Based on review of patient's medications and current medical status; continuation of medications most appropriate. Will continue to monitor sx control Other Visit Diagnoses Encounter for screening mammogram for malignant neoplasm of breast Relevant Orders Bilateral screening mammogram with tomosynthesis (Completed) Arthritis Relevant Medications Meloxicam 15 MG tablet dispersible Health Maintenance Topic Date Due Diabetes: Hemoglobin A1C 03/27/2025 Medicare Annual Wellness (AWV) 08/30/2025 Diabetes: Urine Protein Screening 12/25/2025 Mammogram 12/26/2025 Diabetes: Retinopathy Screening 10/28/2026 Colorectal Cancer Screening 11/15/2032 Influenza Vaccine Completed [...] 07/31/2020 Varicella 01/20/2016 Zoster, Recombinant 10/17/2019, 12/21/2019 I spent a total of 26 minutes on the date of the service which included: time spent preparing to see the patient by reviewing last office note and chronic conditions, talking to the patient/documenting in the chart, examining the patient, placing orders in the chart and documenting in the chart after the visit. Protocols reviewed and updated. A collaborative plan of care has been created for pt regarding specific health concerns. Any barriers to care have been identified and addressed. Any part of this document that has been added/copied from other documents has been reviewed for accuracy and updated as appropriate at the time of the patient encounter. -Follow up in about 4 months (around 04/27/2025) for appt for routine monitoring and management of chronic conditions. Sharmaine oWng D.O. Board Certified [employer] [employer] Reporter documented in this encounterChristian [id number] History of Present illness Narrative* Ambrosio Mcghee DPM - 12/04/2024 2:40 PM EST Patient: Sarah Alfaro : 1950 PCP: Sharmaine Wong DO SUBJECTIVE This is a 74 y.o. female that presents today 21 days s/p right midfoot exostectomy with plantar fasciotomy Pt denies n/f/v/c and has minimal pain to post op site. Pt states that they have been keeping dressing dry and intact and have been PWB with walking boot to post op foot Pt presents today for follow up. 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 Macular degeneration of left eye follows / [facility] Migraine headache ([facility]) 09/05/2023 Obesity Plantar fasciitis 11/[address] Mcghee TIA (transient ischemic attack) 01/2021 Evaluated by Neurology TIA (transient ischemic attack) 05/04/2024 Urinary, incontinence, stress female 09/05/2023 Medications: Current Outpatient Medications: amLODIPine (Norvasc) 5 MG tablet, TAKE 1 TABLET BY MOUTH EVERY DAY, Disp: 90 tablet, Rfl: 3 aspirin 81 MG chewable tablet, Chew 81 mg 1 (one) time each day at the same time., Disp: , Rfl: atorvastatin (Lipitor) 80 MG tablet, TAKE 1 TABLET BY MOUTH EVERY DAY, Disp: 90 tablet, Rfl: 3 escitalopram (Lexapro) 10 MG tablet, TAKE 1 TABLET BY MOUTH EVERY DAY, Disp: 90 tablet, Rfl: 3 estradiol (Estrace) 0.1 MG/GM vaginal cream, Insert 1 g into the vagina 2 (two) times a week., Disp: , Rfl: metoprolol succinate XL (Toprol-XL) 100 MG 24 hr tablet, TAKE 1 TABLET BY MOUTH EVERY DAY, Disp: 90tablet, Rfl: 3 ROS: General: denies fever, chills, fatigue, malaise OBJECTIVE LE EXAM: Derm: Sutures intact to right foot with negative erythema, negative drainage, minimal edema with negative clinical signs of infection. Vascular: Palpable pedal pulses to right foot Neuro: Gross sensation intact to right foot. Musculoskeletal: Negative pain on palpation to right calf. Ortho: Ankle range of motion less than 10 degrees of dorsiflexion at right ankle joint. ASSESSMENT 21 days s/p right midfoot exostectomy with plantar fasciotomy 1. Plantar fasciitis 2. Exostosis of right foot 3. Contracture of right ankle PLAN Sutures were removed today to the foot and patient in now able to get foot wet. Patient returned to normal shoe gear Ambrosio Mcghee DPM documented in this encounterChristian [id number] History of Present illness Narrative* Ambrosio Mcghee, BAR - 11/20/2024 1:30 PM EST Patient: Sarah Alfaro : 1950 PCP: Sharmaine Wong, SUBJECTIVE This is a 74 y.o. female that presents today 7 days s/p right midfoot exostectomy with plantar fasciotomy Pt denies n/f/v/c and has minimal pain to post op site. Pt states that they have been keeping dressing dry and intact and have been PWB with walking boot to post op foot Pt presents today for follow up. 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 Macular degeneration of left eye follows w/ [facility] Migraine headache ([facility]) 09/05/2023 Obesity Plantar fasciitis 11/[address] Mcghee TIA (transient ischemic attack) 01/2021 Evaluated by Neurology TIA (transient ischemic attack) 05/04/2024 Urinary, incontinence, stress female 09/05/2023 Medications: Current Outpatient Medications: amLODIPine (Norvasc) 5 MG tablet, TAKE 1 TABLET BY MOUTH EVERY DAY, Disp: 90 tablet, Rfl: 3 aspirin 81 MG chewable tablet, Chew 81 mg 1 (one) time each day at the same time., Disp: , Rfl: atorvastatin (Lipitor) 80 MG tablet, TAKE 1 TABLET BY MOUTH EVERY DAY, Disp: 90 tablet, Rfl: 3 escitalopram (Lexapro) 10 MG tablet, TAKE 1 TABLET BY MOUTH EVERY DAY, Disp: 90 tablet, Rfl: 3 estradiol (Estrace) 0.1 MG/GM vaginal cream, Insert 1 g into the vagina 2 (two) times a week., Disp: , Rfl: metoprolol succinate XL (Toprol-XL) 100 MG 24 hr tablet, TAKE 1 TABLET BY MOUTH EVERY DAY, Disp: 90tablet, Rfl: 3 ROS: General: denies fever, chills, fatigue, malaise OBJECTIVE LE EXAM: Derm: Sutures intact to right foot with negative erythema, negative drainage, minimal edema with negative clinical signs of infection. Vascular: Palpable pedal pulses to right foot Neuro: Gross sensation intact to right foot. Musculoskeletal: Negative pain on palpation to right calf. Ortho: Ankle range of motion less than 10 degrees of dorsiflexion at right ankle joint. ASSESSMENT 7 days s/p right midfoot exostectomy with plantar fasciotomy 1. Exostosis of right foot 2. Plantar fasciitis 3. Contracture of right ankle PLAN Patient to keep dry sterile dressing intact and keep dressing dry with pwb weightbearing with cam walker Patient may take anti-inflammatories as needed for pain. May continue with ice to foot as needed p.r.n. Ambrosio Mcghee DPM documented in this encounterChristian [id number] History of Present illness Narrative* Ambrosio cMghee DPM - 11/04/2024 10:20 AM EST Patient: Sarah Bearters : 1950 PCP: DO SELMA Bunch This is a 74 y.o. female that presents today for a chief complaint of pain to the right plantar midfoot region with plantar fasciitis. She had been seen in 2022 for similar complaints but has since returned and rates it up to a 6 /10 on 10 pain scale particularly prolonged standing and walking activities. Patient has [id number] inserts and states continued issues to the right foot with failure of conservative tx. Patient also complaints of the dorsum of right foot and area of bony prominence and exostosis that causes some burning and tingling particularly in shoe gear has tried different shoes with minimal improvement and states it has been happening for the past few years and has gotten worse She presents today for preoperative evaluation and is scheduled for a right foot plantar fasciotomywith midfoot exostectomy in the near future. 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 Macular degeneration of left eye follows w/ [facility] Migraine headache ([facility]/HCC) 09/05/2023 Obesity Plantar fasciitis 11/[address] Mcghee TIA (transient ischemic attack) 01/2021 Evaluated by Neurology TIA (transient ischemic attack) 05/04/2024 Urinary, incontinence, stress female 09/05/2023 Medications: Current Outpatient Medications: amLODIPine (Norvasc) 5 MG tablet, TAKE 1 TABLET BY MOUTH EVERY DAY, Disp: 90 tablet, Rfl: 3 aspirin 81 MG chewable tablet, Chew 81 mg 1 (one) time each day at the same time., Disp: , Rfl: atorvastatin (Lipitor) 80 MG tablet, TAKE 1 TABLET BY MOUTH EVERY DAY, Disp: 90 tablet, Rfl: 3 escitalopram (Lexapro) 10 MG tablet, TAKE 1 TABLET BY MOUTH EVERY DAY, Disp: 90 tablet, Rfl: 3 estradiol (Estrace) 0.1 MG/GM vaginal cream, Insert 1 g into the vagina 2 (two) times a week., Disp: , Rfl: metoprolol succinate XL (Toprol-XL) 100 MG 24 hr tablet, TAKE 1 TABLET BY MOUTH EVERY DAY, Disp: 90tablet, Rfl: 3 ROS: Gastrointestinal: denies abdominal pain, ulcers, or changes in appetite or bowel habits Musculoskeletal: Positive generalized arthritis to joints and denies loss of strength. Cardiovascular: denies CP, palpitations, irregular rhythms. Positive history of carotid surgery in the past OBJECTIVE LE EXAM: DERM: Positive hair growth to b/l feet with good skin turgor noted. Negative openings in skin. Notable right midfoot bony prominence near 2nd metatarsal cuneiform joint VASC: Palpable pedal pulsed b/l with warm to cool tibia to toes b/l NEURO: Gross sensation intact digits 1-10 and b/l feet ORTHO: +5/5 DF/PF/IN/EV right, +5/5 DF/PF/IN/EV left. 20 degrees inversion and 10 degrees eversion STJ b/l. Ankle ROM less than 10 degrees b/l. Positive pain on palpation to right mid arch along the plantar fascial band right foot Positive pain on palpation with Tinel's to the right 2nd cuneiform metatarsal joint region and areaof bony prominence ASSESSMENT 1. Exostosis of right foot 2. Plantar fasciitis 3. Contracture of right ankle PLAN Pt dispensed pneumatic CAM walker ([id number]) today to maintain 90 degree foot to ankle position. Pt informed to only remove walker when at rest or bathing. ABN signed and in chart for device if warranted. The boot was assembled and adjusted liner and straps and pneumatically inflated for proper customfitting by Ambrosio Mcghee DPM and staff. A verbal order was given for dispensing of device. The patient is ambulatory and may benefit functionally from this device. It may be used for the following conditions as noted per medical diagnosis. Patient given prescription for pain medication to be taken postoperatively. Decision for surgery today and patient medically cleared from a podiatric standpoint for surgery and to proceed with surgery. Pt to have pre op H/P per PCP for medical clearance for surgery and will be reviewed along with labs prior to surgery. Pt scheduled for a right foot plantar fasciotomy with midfoot exostectomy. Discussed with the patient the nature of condition and operative vs nonoperative care. The surgicalplans, risks, alternatives, benefits, post op complications and remote computer terminal operator expectations were discussed including but not limited to: infection,bone infection,wound dehiscence hardware failure and irritation,wound dehiscence,delay union/mal union/non union of bone. RSDS,neuroma,duty limitations,DVT/PE, VT,nerve damage, scar, loss of sensation, swelling. Pt understands the proposed sx in detail and has agreed with proposed surgery. No guarantees were given or implied. Pt willingly consents to procedure and to have surgical procedure. Pt also understands risks including COVID-19 current risk in a surgical setting. Pt is a low acceptable risk for outpatient surgery from a podiatric standpoint with an ASA of a 2. Ambrosio Mcghee DPM, FACFAS H&P up to date and current (date) Date: November 04, 2024 Ambrosio Mcghee DPM documented in this encounterNOMS [id number] Telephone encounter Note* Telephone Encounter - Lakiamegan Coughlin - 10/29/2024 4:58 PM EST SURGERY 11/13/24 [facility] LABS/EKG - NO APPT REQUIRED PCP Zoya MUÑOZ DEC - LETTER SENT PRE - 11/04/24 @ 10:20AM POST - 11/20/24 @ 1:30PM PATIENT AWARE OF APPT DATES/TIMES. LETTER WITH ALL APPTS MAILED TO PATIENT. MEDICARE/[place] - NO PRIOR AUTH REQUIRED FOR OUT PATIENT PROCEDURES Christian [id number] Miscellaneous Notes* Telephone Encounter - Lakiamegan Coughlin - 10/29/2024 4:58 PM EST SURGERY 11/13/24 [facility] LABS/EKG - NO APPT REQUIRED PCP Zoya MUÑOZ DEC - LETTER SENT PRE - 11/04/24 @ 10:20AM POST - 11/20/24 @ 1:30PM PATIENT AWARE OF APPT DATES/TIMES. LETTER WITH ALL APPTS MAILED TO PATIENT. MEDICARE/[place] - NO PRIOR AUTH REQUIRED FOR OUT PATIENT PROCEDURES * Telephone Encounter - Ambrosio Mcghee DPM - 10/01/2024 1:42 PM EST [facility] DATE-- October PCP: Sharmaine Wong DO DIAGNOSIS WITH PROCEDURES 1) right midfoot exostosis and right plantar fasciitis with right midfoot exostectomy and right plantar fasciotomy 17306/M89.8X7 andM72.2/41134 Approximate case length:40 min SPECIAL NEEDS FOR CASE-- : PT CRUTCH OR WALKER TRAINING NEEDED? NO WEIGHT BEARING STATUS-- nonweightbearing Hydrocodone Ava Needs x-ray documented in this encounterChristian [id number] Telephone encounter Note* Telephone Encounter - Ambrosio Mcghee DPM - 10/01/2024 1:42 PM EST HOSPITAL--[facility] DATE-- October PCP: Sharmaine Wong DO DIAGNOSIS WITH PROCEDURES 1) right midfoot exostosis and right plantar fasciitis with right midfoot exostectomy and right plantar fasciotomy 80351/M89.8X7 andM72.2/59650 Approximate case length:40 min SPECIAL NEEDS FOR CASE-- : PT CRUTCH OR WALKER TRAINING NEEDED? NO WEIGHT BEARING STATUS-- nonweightbearing Hydrocodone Ava Needs x-ray [facility] Work Phone: 1(744) 440-559812-10-2024 History of Present illness Narrative* Ambrosio Mcghee DPM - 10/01/2024 1:10 PM EST Patient: Sarah Alfaro : 1950 PCP: Sharmaine Wong, SUBJECTIVE This is a 74 y.o. female that presents today for a chief complaint of pain to the right plantar midfoot region. She had been seen in 2022 for similar complaints but has since returned and rates it upto a 6 /10 on 10 pain scale particularly prolonged standing and walking activities. Patient has over -the-counter inserts and states some improvement Patient also complaints of the dorsum of right foot and area of bony prominence and exostosis that causes some burning and tingling particularly in shoe gear has tried different shoes with minimal improvement and states it has been happening for the past few years and has gotten worse Allergies: No Known Allergies Past Medical History: Past Medical History: Diagnosis Date Anxiety Anxiety disorder 09/05/2023 Arthritis Carotid stenosis, bilateral 12/2022 left carotid stenting done by Dr Sellers Chronic cystitis without hematuria 09/05/2023 Frequency of urination 09/05/2023 History of kidney stones History of shingles Hyperlipidemia (CMS/HCC) Hypertension (CMS/HCC) 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 Macular degeneration of left eye follows w/ [facility] Migraine headache ([facility]/HCC) 09/05/2023 Obesity Plantar fasciitis 11/[address] Mcghee TIA (transient ischemic attack) 01/2021 Evaluated by Neurology TIA (transient ischemic attack) 05/04/2024 Urinary, incontinence, stress female 09/05/2023 Medications: Current Outpatient Medications: amLODIPine (Norvasc) 5 MG tablet, TAKE 1 TABLET BY MOUTH EVERY DAY, Disp: 90 tablet, Rfl: 3 aspirin 81 MG chewable tablet, Chew 81 mg 1 (one) time each day at the same time., Disp: , Rfl: atorvastatin (Lipitor) 80 MG tablet, TAKE 1 TABLET BY MOUTH EVERY DAY, Disp: 90 tablet, Rfl: 3 escitalopram (Lexapro) 10 MG tablet, TAKE 1 TABLET BY MOUTH EVERY DAY, Disp: 90 tablet, Rfl: 3 estradiol (Estrace) 0.1 MG/GM vaginal cream, Insert 1 g into the vagina 2 (two) times a week., Disp: , Rfl: metoprolol succinate XL (Toprol-XL) 100 MG 24 hr tablet, TAKE 1 TABLET BY MOUTH EVERY DAY, Disp: 90tablet, Rfl: 3 ROS: Gastrointestinal: denies abdominal pain, ulcers, or changes in appetite or bowel habits Musculoskeletal: Positive generalized arthritis to joints and denies loss of strength. Cardiovascular: denies CP, palpitations, irregular rhythms. Positive history of carotid surgery in the past OBJECTIVE LE EXAM: DERM: Positive hair growth to b/l feet with good skin turgor noted. Negative openings in skin. Notable right midfoot bony prominence near 2nd metatarsal cuneiform joint VASC: Palpable pedal pulsed b/l with warm to cool tibia to toes b/l NEURO: Gross sensation intact digits 1-10 and b/l feet ORTHO: +5/5 DF/PF/IN/EV right, +5/5 DF/PF/IN/EV left. 20 degrees inversion and 10 degrees eversion STJ b/l. Ankle ROM less than 10 degrees b/l. Positive pain on palpation to right mid arch along the plantar fascial band right foot Positive pain on palpation with Tinel's to the right 2nd cuneiform metatarsal joint region and areaof bony prominence ASSESSMENT 1. Exostosis of right foot 2. Plantar fasciitis PLAN Continue with inserts Discussed conservative and surgical treatment options for patient today including postoperative time frame and surgical procedure in detail. Patient may continue with conservative treatments including lxjm-jgu-jrelmqs anti- inflammatories and other treatments suggested today. Patient may want to be s cheduled for surgical intervention in the near future. Discussed right midfoot exostectomy and postoperative course and patient to follow up in near future for discussion and possible preoperative visit for right midfoot exostectomy with x-rays be taken at that time. Her PCP is Sharmaine Wong DO and patient like Jaime for postoperative pain Ambrosio Mcghee DPM documented in this encounterChristian [id number] History of Present illness Narrative* Ambrosio Mcghee DPM - 09/03/2024 4:20 PM EST Patient: Sarah Alfaro : 1950 PCP: Sharmaine Wong DO SUBJECTIVE This is a 74 y.o. female that presents today for a chief complaint of pain to the right plantar midfoot region. She had been seen in 2022 for similar complaints but has since returned and rates it upto a 5/10 on 10 pain scale particularly prolonged standing and walking activities Patient also complaints of the dorsum of right foot and area of bony prominence that causes some burning and tingling particularly in shoe gear has tried different shoes with minimal improvement and states it has been happening for the past few years and has gotten worse Allergies: No Known Allergies Past Medical History: Past Medical History: Diagnosis Date Anxiety Anxiety disorder 09/05/2023 Arthritis Carotid stenosis, bilateral 12/2022 left carotid stenting done by Dr Sellers Chronic cystitis without hematuria 09/05/2023 Frequency of urination 09/05/2023 History of kidney stones History of shingles Hyperlipidemia (CMS/HCC) Hypertension (CMS/HCC) 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 Macular degeneration of left eye follows w/ [facility] Migraine headache (CMS/HCC) 09/05/2023 Obesity Plantar fasciitis 11/[address] Mcghee TIA (transient ischemic attack) 01/2021 Evaluated by Neurology TIA (transient ischemic attack) 05/04/2024 Urinary, incontinence, stress female 09/05/2023 Medications: Current Outpatient Medications: amLODIPine (Norvasc) 5 MG tablet, TAKE 1 TABLET BY MOUTH EVERY DAY, Disp: 90 tablet, Rfl: 3 aspirin 81 MG chewable tablet, Chew 81 mg 1 (one) time each day at the same time., Disp: , Rfl: atorvastatin (Lipitor) 80 MG tablet, TAKE 1 TABLET BY MOUTH EVERY DAY, Disp: 90 tablet, Rfl: 3 escitalopram (Lexapro) 10 MG tablet, TAKE 1 TABLET BY MOUTH EVERY DAY, Disp: 90 tablet, Rfl: 3 estradiol (Estrace) 0.1 MG/GM vaginal cream, Insert 1 g into the vagina 2 (two) times a week., Disp: , Rfl: metoprolol succinate XL (Toprol-XL) 100 MG 24 hr tablet, TAKE 1 TABLET BY MOUTH EVERY DAY, Disp: 90tablet, Rfl: 3 ROS: Gastrointestinal: denies abdominal pain, ulcers, or changes in appetite or bowel habits Musculoskeletal: Positive generalized arthritis to joints and denies loss of strength. Cardiovascular: denies CP, palpitations, irregular rhythms. Positive history of carotid surgery in the past OBJECTIVE LE EXAM: DERM: Positive hair growth to b/l feet with good skin turgor noted. Negative openings in skin. Notable right midfoot bony prominence near 2nd metatarsal cuneiform joint VASC: Palpable pedal pulsed b/l with warm to cool tibia to toes b/l NEURO: Gross sensation intact digits 1-10 and b/l feet ORTHO: +5/5 DF/PF/IN/EV right, +5/5 DF/PF/IN/EV left. 20 degrees inversion and 10 degrees eversion STJ b/l. Ankle ROM less than 10 degrees b/l. Positive pain on palpation to right mid arch along the plantar fascial band right foot Positive pain on palpation with Tinel's to the right 2nd cuneiform metatarsal joint region and areaof bony prominence XRAY: US: ASSESSMENT 1. Exostosis of right foot 2. Plantar fasciitis PLAN Patient like to purchase Powerstep inserts and bhd-hh-fzrhwb cost of 50 dollars which she will pickup tomorrow for her plantar fasciitis type arch pain to the right foot Discussed conservative and surgical treatment options for patient today including postoperative time frame and surgical procedure in detail. Patient may continue with conservative treatments including oacx-ojk-phbyecg anti- inflammatories and other treatments suggested today. Patient may want to be s cheduled for surgical intervention in the near future. Discussed right midfoot exostectomy and postoperative course and patient to follow up in near future for discussion and possible preoperative visit for right midfoot exostectomy with x-rays be taken at that time. Her PCP is Sharmaine Wong DO and patient like Jaime for postoperative pain Ambrosio Mcghee DPM documented in this encounterChristian [id number] History of Present illness Narrative* Shamraine Wong DO - 08/30/2024 10:29 AM ESTAssociated Problem(s): Arthritis of left knee She has F/U scheduled * Sharmaine Wong DO - 08/30/2024 10:28 AM ESTAssociated Problem(s): TIA (transient ischemic attack) Continue risk factor modifications to reduce CV complication risks * Sharmaine Wong DO - 08/30/2024 10:27 AM ESTAssociated Problem(s): Stage 3a chronic kidney disease (HCC) ([facility]/HCC) -We will continue to monitor your renal [...] kidney function. * Sharmaine Wong DO - 08/30/2024 10:27 AM ESTAssociated Problem(s): Hyperlipidemia LDL goal <100 (CMS/HCC) -Reinforced importance of dietary modification, regular cardiovascular activity and compliance withany prescribed medication for chcf management/control of lipids. High cholesterol (especially LDL) is associated with an elevated risk of cardiovascular disease. This includes coronary artery disease. stroke and peripheral vascular disease. High cholesterol has also been linked to diabetes and high blood pressure risks. By appropriately treating LDL, these risks can be reduced. * Sharmaine Wogn, - 08/30/2024 10:26 AM ESTAssociated Problem(s): Carotid stenosis, bilateral Continue with risk factor optimization * Sharmaine Wong DO - 08/30/2024 10:24 AM ESTAssociated Problem(s): Essential hypertension ([facility]) BP continue to do well. Will continue current meds and dosing. 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 * Sharmaine Wong, DO - 08/30/2024 9:30 AM EST Images from the original note were not included. Subjective : Chief Complaint: Sarah Alfaro (: 1950) is an 74 y.o. female here for an annual Medicare Wellness visit. HPI Sarah is being seen today for 4 her month follow up, MWV with SPECIAL EVENTS PLANNER and managment of her chronic conditions with [...] stones History of shingles Hyperlipidemia (CMS/HCC) Hypertension (CMS/HCC) 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 Macular degeneration of left eye follows / [facility] Migraine headache (CMS/HCC) 09/05/2023 Obesity Plantar fasciitis 11/2022 seen by [...] Yes Vision Screening: Yes, patient sees regular piece dye worker/office assistant receptionist Hearing Screening: Has some hearing loss Cognitive Screening Self Assessment: No overt cognitive deficiency is apparent by direct observation Three Word Registration: Lupe Snell, Finger Pain Assessment Pain Score: 0 - [...] Continue with risk factor optimization Essential hypertension ([facility]) Overview She is prescribed amlodipine and metoprolol Current Assessment & Plan BP continue to do well. Will continue current meds and dosing. Will continue to monitor Hyperlipidemia LDL goal <100 ([facility]) Overview Prescribed atorvastatin. Her LDL improved from 190 to 75 on 80 mg daily! 08/2023 LDL=53 04/2024 LDL=64 Current Assessment & Plan -Reinforced importance of dietary modification, regular cardiovascular activity and compliance withany prescribed medication for chcf management/control of lipids. High cholesterol (especially LDL) is associated with an elevated risk of cardiovascular disease. This includes coronary artery disease. stroke and peripheral vascular disease. High cholesterol has also been linked to diabetes and high blood pressure risks. By appropriately treating LDL, these risks can be reduced. Type 2 diabetes mellitus with kidney complication, without long-term current use of insulin ([facility]) Overview Her IFG has progressed to DM [...] modification, routine exercise and weight control for chcf DM management and reduction in risk for [...] assessment of ability to perform ADL's and IADL'swas done. The current BMI was provided and will continue to be monitored at routine office visits as well. Major risk factors for chronic disease including family history were discussed and a list was provided with the care plan. ACP (advance care planning) Discussed LW/POA with patient. Patient does have this in place at this time. 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 The following health maintenance schedule was [...] by one of our Advanced Care Practitioner (SPECIAL EVENTS PLANNER/PA) for the Medicare Wellness portion of this [...] to labs to she can to at [facility] Sharmaine Wong DO Board Certified [address] Reporter documented in this encounterChristian [id number] Discharge summary Author Kameron Pires [facility] May 06, 2024 6:42pm Note Date/Time May 06, 2024 6:37 pm [facility] [address] [place] [address] Discharge Summary Signed Patient: Sarah Alfaro MR#: [id number] : 1950 Acct:[id number] Age/Sex: 74 / F Adm Date: 4 Loc: Room: [address] [place] [address]: Kameron Pires MD Copies to: [...] Days Documented By: Kameron Pires MD 05/06/24 183 Signed By: <Electronically signed by Kameron Pires MD> 05/06/24 184 [facility] Work Phone: 1(100) 277-958507-15-2024 Progress note Author Kameron Pires [facility] May 06, 2024 5:02pm Note Date/Time May 06, 2024 5:02 pm [facility] [address] [place] [address] Hospitalist Progress Note Signed Patient: Sarah Alfaro MR#: [id number] : 1950 Acct:[id number] Age/Sex: 74 / F Adm Date: 4 Loc: Room: [address] [place] [address] Type: ADM INOo Attending Dr: Kameron Pires [...] 12:00 05/06/24 12:00 05/06/24 12:05/06/24 08:00 Narrative: GEN: Awake, alert, oriented x [...] <Electronically signed by Kameron Pires MD> 05/06/24 1704 [facility] Work Phone: 1(769) 385-860907-15-2024 Progress note Author Hiren Abrams [facility] May 06, 2024 4:29pm Note Date/Time May 06, 2024 4:29 pm [facility] [address] [place] [address] Neurology Progress Note Signed Patient: Sarah Alfaro MR#: [id number] : 1950 Acct:[id number] Age/Sex: 74 / F Adm Date: 4 Loc: Room: [address] [place] [address] Type: ADM INOo Attending Dr: Kameron Pires [...] Vital Signs - 24 hr 05/05/24 19:43 07/14/24 20:00 05/06/24 00:00 Temperature 98.4 F Pulse [...] <Electronically signed by Hiren Abrams DO> 05/06/24 1629 [facility] Work Phone: 1(728) 221-817907-14-2024 Progress note Author Marvin Iglesias [facility] May 05, 2024 1:50pm Note Date/Time May 05, 2024 1:28 pm [facility] [address] [place] [address] Hospitalist Progress Note Signed Patient: Sarah Alfaro MR#: [id number] : 1950 Acct:[id number] Age/Sex: 74 / F Adm Date: 4 Loc: Room: [address] [place] [address] Type: ADM INOo Attending Dr: Marvin Iglesisa DO Copies to: ~ Date of Service: [...] promoted and sold for pain on various websites,including?[email or web address]://[email or web address] and possibly in some retail stores. FDA [...] not be taken with certain medications.? Health customer care voice consultant and consumers should report adverse events or side effects related to the use of this product to FDA's [employer] display [employer] Safety Information and Adverse Event Reporting Program: I, Dr. Iglesias, did complete the online med watch report yesterday after I admitted her. Exam Physical Exam Vital Signs: Temp Pulse Resp BP Pulse Ox O2 Del Method 98.2 F 65 16 133/78 97 Room Air 05/05/24 11:08 05/05/24 11:08 05/05/24 11:08 05/05/24 11:08 05/05/24 11:08 05/05/24 11:08 Narrative: GEN: Awake, alert, oriented x [...] Flush Sodium Chloride 0 ml 05/04/24 22:00 07/14/24 06:38 Sodium Chloride 0.9 % 10 Ml Syringe IV-PUSH 05/04/25 21:59 Not Given [facility] Vitamin D 25 mcg 05/05/24 09:00 05/05/24 [...] <Electronically signed by Marvin Iglesias DO> 05/05/24 [address] [facility] Work Phone: 1(673) 634-911907-14-2024 Consult note Author Julian Diaz [facility] May 05, 2024 10:11am Note Date/Time May 05, 2024 10:1 1am [facility] [address] [place] [address] Neurology Consult Note Signed Patient: Sarah Alfaro MR#: [id number] : 1950 Acct:[id number] Age/Sex: 74 / F Adm Date: 4 Loc: Room: [address] [place] [address] Type: ADM INOo Attending Dr: Marvin Iglesias DO Copies to: DO Sharmaine Mehta DO Steven Benedict, MD~ HPI Consult Date: 05/05/24 Drywall Worker: Julian Diaz MD Reason for consult: Stroke [...] evaluation. The patient was evaluated by the [facility] stroke team and deemed to not be a candidate for thrombolytics. The patient states that her symptoms are back to normal. Review of Systems Review of Systems All other systems reviewed & are negative unless noted below or in HPI [facility] Medical History (Updated 05/04/24 @ 21:25 by [...] 25mcg PO DAILY 12/14/22 [History Confirmed 05/04/24] swnjldim-mkzv-dtdy 8 mg-folic 400 mcg-K 50 mcg-lutein 300 [...] Ata Samuel M.D.05/04/2024 4:23 PM Dictation Location: [place] [address] Head CTA 05/04/24 16:09 IMPRESSION: There is [...] Ata Samuel M.D.05/04/2024 4:33 PM Dictation Location: [place] [address] Assessment/Plan (1) TIA (transient ischemic attack): Assessment/Problem [...] signed by MD Julian Diaz> 05/05/24 [address] [facility] Work Phone: 1(403) 683-199807-13-2024 History and physical note Author Marvin Iglesias [facility] May 04, 2024 9:30pm Note Date/Time May 04, 2024 9:29 pm [facility] [address] [place] [address] Hospitalist H&P Signed Patient: Sarah Alfaro MR#: [id number] : 1950 Acct:[id number] Age/Sex: 74 / F Adm Date: 4 Loc: Room: [address] [place] [address] Type: ADM INOo Attending Dr: Marvin Iglesias [...] The emergency room made contact with the [facility] stroke neurointerventional team who recommended that the [...] the formulation of this which comes from [employer]. I showed the patient and her family [...] and sold for pain on various websites, including?https://www.[employer] and possibly in some retail stores. FDA [...] not be taken with certain medications.? Health customer care voice consultant and consumers should report adverse events or side effects related to the use of this product to FDA's [employer] Safety Information and Adverse Event Reporting Program: I, Dr. Iglesias, did go ahead and complete the [employer] Online Voluntary Reporting Form for this incident. Review of Systems Review of Systems Review of systems: 10 systems are reviewed and are negative except as mentioned elsewhere in the documentation. [facility] Medical History (Updated 05/04/24 @ 21:25 by [...] 25mcg PO DAILY 12/14/22 [History Confirmed 05/04/24] kburxanr-miii-eowt 8 mg-folic 400 mcg-K 50 mcg-lutein 300 [...] % (Auto) 13.3 % (.) 05/04/24 16:10 Whitman % (Auto) 7.6 % (.) 05/04/24 16:10 Eos % (Auto) 1.9 % (.) 05/04/24 16:10 Baso % (Auto) 0.9 % (.) 05/04/24 16:10 Nucleat RBC Rel Count 0.1 /100 WBC (0-0.5) 05/04/24 16:10 Neut # (Auto) 12.5 x10E3/uL (1.8-7.7) H 05/04/24 16:10 Lymph # (Auto) 2.2 x10E3/uL (1.00-4.8) 05/04/24 16:10 Whitman # (Auto) 1.2 x10E3/uL (0.0-0.8) H 05/04/24 [...] pH 5.5 (5.0-9.0) 05/04/24 16:31 Ur Specific Arnett > 1.050 (1.001-1.030) H 05/04/24 16:31 Urine [...] <Electronically signed by Marvin Iglesias DO> 05/04/242129 [facility] Work Phone: 1(719) 309-395706-06-2024 Hospital Discharge instructions Patient Education 03/28/2024 11:30:43 [...] provider. Document Revised: 02/17/2022 Document Reviewed: 02/17/2022 [employer] Patient Education 2022 [employer]. Follow Up Care 03/28/2023 13:31:18 With:LEIGH LIZ, CARLA Lopes, URL Address: [address] [facility] [place] [place] [address] [phone] When: Unknown Comments:18 mos (no labs) [facility] Noelle 06-06-2024 Note From: Linda Singh To: EU - Administrative; Sent: 03/28/2024 11:53:00 EDT Show up: 12/21/2024 11:52:00 EST Subject: Ambulatory Reminder Due Date/Time: 09/22/2025 11:52:00 EST Reminder/Recall Patient needs scheduled for a 1.5 yr follow up with [facility] when schedules are built that far out. Due in 10/16[facility]02-09-2024 History of Present illness Narrative* Sharmaine Wong, - 12/01/2023 10:47 AM EST Associated Problem(s): [...] activity and compliance withany prescribed medication for chcf management/control of lipids. High cholesterol (especially LDL) [...] Continue current medications and monitor * Sharmaine Wong DO - 12/01/2023 10:00 AM EST Images [...] had an eye exam in October at [facility], will call for report Findings on [...] of left knee Carotid stenosis, bilateral Dysthymia (CMS/HCC) Essential hypertension (CMS/HCC) Hyperlipidemia LDL goal <100 (CMS/HCC) Type 2 diabetes mellitus with kidney complication, without long-term current use of insulin (HCC) (CMS/HCC) Primary localized osteoarthrosis of ankle and foot Stage 3a chronic kidney disease (HCC) (CMS/HCC) TIA (transient ischemic attack) Hypocitraturic calcium nephrolithiasis [...] List Items Addressed This Visit Essential hypertension (CMS/[facility]) Overview She is prescribed amlodipine and metoprolol Current Assessment & Plan BP looks good. Continue current medications and monitor Hyperlipidemia LDL goal <100 ([facility]) Overview Prescribed atorvastatin. Her LDL improved from 190 to 75 on 80 mg daily! 08/2023 LDL=53 Current Assessment & Plan -Reinforced importance of dietary modification, regular cardiovascular activity and compliance withany prescribed medication for chcf management/control of lipids. High cholesterol (especially LDL) is associated with an elevated risk of cardiovascular disease. This includes coronary artery disease. stroke and peripheral vascular disease. High cholesterol has also been linked to diabetes and high blood pressure risks. By appropriately treating LDL, these risks can be reduced. Type 2 diabetes mellitus with kidney complication, without long-term current use of insulin ([facility]) ([facility]) - Primary Overview Her IFG has progressed [...] (Completed) Stage 3a chronic kidney disease (HCC) ([facility]) Current Assessment & Plan -We will continue [...] chronic conditions. Sharmaine Wong D.O. Board Certified [employer] [employer] Reporter documented in this encounterChristian [id number] Evaluation note* Encounter Date Diagnosis Assessment Notes [...] we will move onto annual follow-up thereafter. [employer] Other 06-19-2023 Evaluation note* Encounter Date Diagnosis [...] the meantime with any issues or concerns. [employer] [facility] Other 06-06-2023 Hospital Discharge instructions Patient Education [...] you may eat and drink normally. Take gvel-kew-zwqqyfw and prescription medicines only as told by your health care provider. Let your health care provider know about any medicines that you are taking, including hucq-zqu-yrlhfhf medicines, vitamins, herbs, and supplements. Choose a [...] provider. Document Revised: 04/15/2022 Document Reviewed: 04/15/2022 [employer] Patient Education 2022 [employer]. Follow Up Care 03/16/2023 10:27:03 With:ZUNILDA URBINA, Jazmin Barrera, URL Address: [address] [place] [address]- When:1 year [facility] 03-27-2023 Evaluation note* Encounter Date Diagnosis Assessment [...] the meantime with any issues or concerns. [facility] Other 08-09-2022 Evaluation note* Encounter Date Diagnosis [...] agrees with this plan, denies any questions. [employer] Other Discharge summary Author Scott Sellers [facility] December 23, 2022 8:30am Note Date/Time December 23, 2022 8:30 am [facility] [address] [place] [address] Discharge Summary Signed Patient: Sarah Alfaro MR#: [id number] : 1950 Acct:[id number] Age/Sex: 72 / F Adm Date: 3 Loc: Room: [address] [place] [address]: Scott Sellers MD Copies to: [...] signed by MD Scott Sellers> 12/23/22 0830 [facility] Work Phone: Evaluation + Plan note Future Appointments Appointment Date:03/28/2024 11:00:00 AM Scheduled Provider:CARLA JON PA-C Location:[facility] Appointment Type:URO Office Visit [facility] evaluation + Plan note Future Appointments Appointment Date:03/28/2024 11:00:00 AM Scheduled Provider:CARLA JON PA-C Location:[facility] Appointment Type:URO Office Visit Diagnostic Tests Pending * [facility] Work Phone: Evaluqwdub noteNo InformationNort [employer] Other Evaluation note* Diagnosis Type 2 diabetes mellitus with stage 3a chronic kidney disease, without long-term current use of insulin (HCC) ([facility])- Primary Stage 3a chronic kidney disease (HCC) ([facility]) Hyperlipidemia LDL goal <100 ([facility]) Other and unspecified hyperlipidemia Essential hypertension ([facility]) Unspecified essential hypertension BMI 28.0-28.9,adult Viral upper respiratory tract infection Acute upper respiratory infections of unspecified site [facility] encounter [facility]* Diagnosis Onset Date Resolution Status Carotid stenosis, bilateral acute Non-smoker acute [facility] Work Phone: Evaluation note* Diagnosis Onset Date Resolution Status Carotid stenosis, bilateral acute Non-smoker acute Accelerated hypertension acu te Arthritis acute Carotid stenosis, bilateral acute Hypercholesteremia acute Hypertension acute Poisoning by vitamins, accid ental (unintentional), initial encounter acute TIA (transient ischemic attack) acute Transient cerebral ischemia acute [facility] Work Phone: Evaluation note* Diagnosis Essential hypertension ([facility]/HCC)- Primary Unspecified essential hypertension Hyperlipidemia LDL goal <100 (CMS/HCC) Other and unspecified hyperlipidemia IFG (impaired fasting glucose) Stage 3a chronic kidney disease (HCC) (CMS/[facility]) Hypocitraturic calcium nephrolithiasis Calculus of kidney Hyponatremia Hyposmolality and/or hyponatremia Primary hypertension (CMS/HCC) Unspecified essential hypertension Bilateral hearing loss, unspecified hearing loss type BMI 31.0-31.9,adult Medicare annual wellness visit, subsequent- Primary ACP (advance care planning) Other specified counseling Class 1 obesity BMI 30.0-30.9,adult Type 2 diabetes mellitus with stage 3a chronic kidney disease, without long-term current use of insulin (HCC) (CMS/HCC) Hypocitraturic calcium nephrolithiasis Calculus of kidney Stage 3a chronic kidney disease (HCC) (CMS/HCC) Essential hypertension (CMS/HCC) Unspecified essential hypertension Hyperlipidemia LDL goal <100 (CMS/HCC) Other and unspecified hyperlipidemia Carotid stenosis, bilateral Occlusion and stenosis of carotid artery without mention of cerebral infarction Dysthymia ([facility]) Dysthymic disorder Encounter for screening mammogram for malignant neoplasm of breast Type 2 diabetes mellitus with stage 3a chronic kidney disease, without long-term current use of insulin (HCC) (CMS/HCC)- Primary Stage 3a chronic kidney disease (HCC) (CMS/HCC) Hyperlipidemia LDL goal <100 (CMS/HCC) Other and unspecified hyperlipidemia Essential hypertension (CMS/HCC) Unspecified essential hypertension BMI 28.0-28.9,adult Viral upper respiratory tract infection Acute upper respiratory infections of unspecified site TIA (transient ischemic attack)- Primary Unspecified transient cerebral ischemia Hospital discharge follow-up Other follow-up examination Type 2 diabetes mellitus with stage 3a chronic kidney disease, without long-term current use of insulin (HCC) ([facility]/HCC) Essential hypertension (CMS/HCC) Unspecified essential hypertension Hyperlipidemia LDL goal <100 (CMS/HCC) Other and unspecified hyperlipidemia Carotid stenosis, bilateral Occlusion and stenosis of carotid artery without mention of cerebral infarction Stage 3a chronic kidney disease (HCC) ([facility]) Medicare annual wellness visit, subsequent- Primary ACP (advance care planning) Other specified counseling Type 2 diabetes mellitus with stage 3a chronic kidney disease, without long-term current use of insulin (HCC) ([facility]/HCC) Essential hypertension (CMS/HCC) Unspecified essential hypertension Carotid stenosis, bilateral Occlusion and stenosis of carotid artery without mention of cerebral infarction Hyperlipidemia LDL goal <100 (CMS/HCC) Other and unspecified hyperlipidemia Arthritis of left knee Stage 3a chronic kidney disease (HCC) (CMS/HCC) TIA (transient ischemic attack) Unspecified transient cerebral ischemia BMI 29.0-29.9,adult documented in this encounter [facility]* Diagnosis Essential hypertension (CMS/HCC)- Primary Unspecified essential hypertension Hyperlipidemia LDL goal <100 (CMS/HCC) Other and unspecified hyperlipidemia IFG (impaired fasting glucose) Stage 3a chronic kidney disease (HCC) ([facility]) Hypocitraturic calcium nephrolithiasis Calculus of kidney Hyponatremia Hyposmolality and/or hyponatremia Primary hypertension (CMS/HCC) Unspecified essential hypertension Bilateral hearing loss, unspecified hearing loss type BMI 31.0-31.9,adult Medicare annual wellness visit, subsequent- Primary ACP (advance care planning) Other specified counseling Class 1 obesity BMI 30.0-30.9,adult Type 2 diabetes mellitus with stage 3a chronic kidney disease, without long-term current use of insulin (HCC) ([facility]) Hypocitraturic calcium nephrolithiasis Calculus of kidney Stage 3a chronic kidney disease (HCC) (CMS/HCC) Essential hypertension (CMS/HCC) Unspecified essential hypertension Hyperlipidemia LDL goal <100 (CMS/HCC) Other and unspecified hyperlipidemia Carotid stenosis, bilateral Occlusion and stenosis of carotid artery without mention of cerebral infarction Dysthymia ([facility]) Dysthymic disorder Encounter for screening mammogram for malignant neoplasm of breast Type 2 diabetes mellitus with stage 3a chronic kidney disease, without long-term current use of insulin (HCC) (CMS/HCC)- Primary Stage 3a chronic kidney disease (HCC) (CMS/HCC) Hyperlipidemia LDL goal <100 (CMS/HCC) Other and unspecified hyperlipidemia Essential hypertension (CMS/HCC) Unspecified essential hypertension BMI 28.0-28.9,adult Viral upper respiratory tract infection Acute upper respiratory infections of unspecified site TIA (transient ischemic attack)- Primary Unspecified transient cerebral ischemia Hospital discharge follow-up Other follow-up examination Type 2 diabetes mellitus with stage 3a chronic kidney disease, without long-term current use of insulin (HCC) ([facility]) Essential hypertension ([facility]/HCC) Unspecified essential hypertension Hyperlipidemia LDL goal <100 ([facility]/HCC) Other and unspecified hyperlipidemia Carotid stenosis, bilateral Occlusion and stenosis of carotid artery without mention of cerebral infarction Stage 3a chronic kidney disease (HCC) ([facility]) Medicare annual wellness visit, subsequent- Primary ACP (advance care planning) Other specified counseling Type 2 diabetes mellitus with stage 3a chronic kidney disease, without long-term current use of insulin (HCC) ([facility]) Essential hypertension ([facility]) Unspecified essential hypertension Carotid stenosis, bilateral Occlusion and stenosis of carotid artery without mention of cerebral infarction Hyperlipidemia LDL goal <100 ([facility]) Other and unspecified hyperlipidemia Arthritis of left knee Stage 3a chronic kidney disease (HCC) ([facility]) TIA (transient ischemic attack) Unspecified transient cerebral ischemia BMI 29.0-29.9,adult Exostosis of right foot- Primary Plantar fasciitis Plantar fascial fibromatosis documented in this encounter [facility] HealthcareEvaluation note* Diagnosis Essential hypertension ([facility])- Primary Unspecified essential hypertension Hyperlipidemia LDL goal <100 ([facility]) Other and unspecified hyperlipidemia IFG (impaired fasting glucose) Stage 3a chronic kidney disease (HCC) ([facility]) Hypocitraturic calcium nephrolithiasis Calculus of kidney Hyponatremia Hyposmolality and/or hyponatremia Primary hypertension ([facility]) Unspecified essential hypertension Bilateral hearing loss, unspecified hearing loss type BMI 31.0-31.9,adult Medicare annual wellness visit, subsequent- Primary ACP (advance care planning) Other specified counseling Class 1 obesity BMI 30.0-30.9,adult Type 2 diabetes mellitus with stage 3a chronic kidney disease, without long-term current use of insulin (HCC) ([facility]) Hypocitraturic calcium nephrolithiasis Calculus of kidney Stage 3a chronic kidney disease (HCC) ([facility]) Essential hypertension ([facility]) Unspecified essential hypertension Hyperlipidemia LDL goal <100 ([facility]/HCC) Other and unspecified hyperlipidemia Carotid stenosis, bilateral Occlusion and stenosis of carotid artery without mention of cerebral infarction Dysthymia ([facility]) Dysthymic disorder Encounter for screening mammogram for malignant neoplasm of breast Type 2 diabetes mellitus with stage 3a chronic kidney disease, without long-term current use of insulin (HCC) ([facility])- Primary Stage 3a chronic kidney disease (HCC) ([facility]) Hyperlipidemia LDL goal <100 ([facility]) Other and unspecified hyperlipidemia Essential hypertension ([facility]) Unspecified essential hypertension BMI 28.0-28.9,adult Viral upper respiratory tract infection Acute upper respiratory infections of unspecified site TIA (transient ischemic attack)- Primary Unspecified transient cerebral ischemia Hospital discharge follow-up Other follow-up examination Type 2 diabetes mellitus with stage 3a chronic kidney disease, without long-term current use of insulin (HCC) ([facility]) Essential hypertension ([facility]) Unspecified essential hypertension Hyperlipidemia LDL goal <100 ([facility]) Other and unspecified hyperlipidemia Carotid stenosis, bilateral Occlusion and stenosis of carotid artery without mention of cerebral infarction Stage 3a chronic kidney disease (HCC) ([facility]) Medicare annual wellness visit, subsequent- Primary ACP (advance care planning) Other specified counseling Type 2 diabetes mellitus with stage 3a chronic kidney disease, without long-term current use of insulin ([facility]) ([facility]) Essential hypertension ([facility]) Unspecified essential hypertension Carotid stenosis, bilateral Occlusion and stenosis of carotid artery without mention of cerebral infarction Hyperlipidemia LDL goal <100 ([facility]) Other and unspecified hyperlipidemia Arthritis of left knee Stage 3a chronic kidney disease (HCC) ([facility]) TIA (transient ischemic attack) Unspecified transient cerebral ischemia BMI 29.0-29.9,adult Exostosis of right foot- Primary Plantar fasciitis Plantar fascial fibromatosis documented in this encounter [facility] HealthcareEvaluation note* Diagnosis Essential hypertension ([facility])- Primary Unspecified essential hypertension Hyperlipidemia LDL goal <100 ([facility]) Other and unspecified hyperlipidemia IFG (impaired fasting glucose) Stage 3a chronic kidney disease (HCC) ([facility]) Hypocitraturic calcium nephrolithiasis Calculus of kidney Hyponatremia Hyposmolality and/or hyponatremia Primary hypertension ([facility]) Unspecified essential hypertension Bilateral hearing loss, unspecified hearing loss type BMI 31.0-31.9,adult Medicare annual wellness visit, subsequent- Primary ACP (advance care planning) Other specified counseling Class 1 obesity BMI 30.0-30.9,adult Type 2 diabetes mellitus with stage 3a chronic kidney disease, without long-term current use of insulin (HCC) ([facility]) Hypocitraturic calcium nephrolithiasis Calculus of kidney Stage 3a chronic kidney disease (HCC) ([facility]/HCC) Essential hypertension ([facility]/HCC) Unspecified essential hypertension Hyperlipidemia LDL goal <100 ([facility]/HCC) Other and unspecified hyperlipidemia Carotid stenosis, bilateral Occlusion and stenosis of carotid artery without mention of cerebral infarction Dysthymia ([facility]) Dysthymic disorder Encounter for screening mammogram for malignant neoplasm of breast Type 2 diabetes mellitus with stage 3a chronic kidney disease, without long-term current use of insulin (HCC) ([facility])- Primary Stage 3a chronic kidney disease (HCC) ([facility]) Hyperlipidemia LDL goal <100 ([facility]/HCC) Other and unspecified hyperlipidemia Essential hypertension ([facility]) Unspecified essential hypertension BMI 28.0-28.9,adult Viral upper respiratory tract infection Acute upper respiratory infections of unspecified site TIA (transient ischemic attack)- Primary Unspecified transient cerebral ischemia Hospital discharge follow-up Other follow-up examination Type 2 diabetes mellitus with stage 3a chronic kidney disease, without long-term current use of insulin (HCC) ([facility]) Essential hypertension ([facility]) Unspecified essential hypertension Hyperlipidemia LDL goal <100 ([facility]) Other and unspecified hyperlipidemia Carotid stenosis, bilateral Occlusion and stenosis of carotid artery without mention of cerebral infarction Stage 3a chronic kidney disease (HCC) ([facility]) Medicare annual wellness visit, subsequent- Primary ACP (advance care planning) Other specified counseling Type 2 diabetes mellitus with stage 3a chronic kidney disease, without long-term current use of insulin (HCC) ([facility]) Essential hypertension ([facility]) Unspecified essential hypertension Carotid stenosis, bilateral Occlusion and stenosis of carotid artery without mention of cerebral infarction Hyperlipidemia LDL goal <100 ([facility]) Other and unspecified hyperlipidemia Arthritis of left knee Stage 3a chronic kidney disease (HCC) ([facility]) TIA (transient ischemic attack) Unspecified transient cerebral ischemia BMI 29.0-29.9,adult Exostosis of right foot- Primary Plantar fasciitis Plantar fascial fibromatosis Contracture of right ankle documented in this encounter [facility]* Diagnosis Essential hypertension ([facility])- Primary Unspecified essential hypertension Hyperlipidemia LDL goal <100 ([facility]) Other and unspecified hyperlipidemia IFG (impaired fasting glucose) Stage 3a chronic kidney disease (HCC) ([facility]) Hypocitraturic calcium nephrolithiasis Calculus of kidney Hyponatremia Hyposmolality and/or hyponatremia Primary hypertension ([facility]) Unspecified essential hypertension Bilateral hearing loss, unspecified hearing loss type BMI 31.0-31.9,adult Medicare annual wellness visit, subsequent- Primary ACP (advance care planning) Other specified counseling Class 1 obesity BMI 30.0-30.9,adult Type 2 diabetes mellitus with stage 3a chronic kidney disease, without long-term current use of insulin (HCC) ([facility]) Hypocitraturic calcium nephrolithiasis Calculus of kidney Stage 3a chronic kidney disease (HCC) ([facility]) Essential hypertension ([facility]) Unspecified essential hypertension Hyperlipidemia LDL goal <100 ([facility]) Other and unspecified hyperlipidemia Carotid stenosis, bilateral Occlusion and stenosis of carotid artery without mention of cerebral infarction Dysthymia ([facility]) Dysthymic disorder Encounter for screening mammogram for malignant neoplasm of breast Type 2 diabetes mellitus with stage 3a chronic kidney disease, without long-term current use of insulin (HCC) ([facility])- Primary Stage 3a chronic kidney disease (HCC) ([facility]) Hyperlipidemia LDL goal <100 ([facility]/HCC) Other and unspecified hyperlipidemia Essential hypertension ([facility]) Unspecified essential hypertension BMI 28.0-28.9,adult Viral upper respiratory tract infection Acute upper respiratory infections of unspecified site TIA (transient ischemic attack)- Primary Unspecified transient cerebral ischemia Hospital discharge follow-up Other follow-up examination Type 2 diabetes mellitus with stage 3a chronic kidney disease, without long-term current use of insulin (HCC) ([facility]) Essential hypertension ([facility]) Unspecified essential hypertension Hyperlipidemia LDL goal <100 ([facility]/HCC) Other and unspecified hyperlipidemia Carotid stenosis, bilateral Occlusion and stenosis of carotid artery without mention of cerebral infarction Stage 3a chronic kidney disease (HCC) ([facility]) Medicare annual wellness visit, subsequent- Primary ACP (advance care planning) Other specified counseling Type 2 diabetes mellitus with stage 3a chronic kidney disease, without long-term current use of insulin (HCC) ([facility]) Essential hypertension ([facility]) Unspecified essential hypertension Carotid stenosis, bilateral Occlusion and stenosis of carotid artery without mention of cerebral infarction Hyperlipidemia LDL goal <100 ([facility]/HCC) Other and unspecified hyperlipidemia Arthritis of left knee Stage 3a chronic kidney disease (HCC) ([facility]) TIA (transient ischemic attack) Unspecified transient cerebral ischemia BMI 29.0-29.9,adult Exostosis of right foot- Primary Plantar fasciitis Plantar fascial fibromatosis Contracture of right ankle documented in this encounter [facility]* Diagnosis Essential hypertension (CMS/HCC)- Primary Unspecified essential hypertension Hyperlipidemia LDL goal <100 (CMS/HCC) Other and unspecified hyperlipidemia IFG (impaired fasting glucose) Stage 3a chronic kidney disease (HCC) (CMS/HCC) Hypocitraturic calcium nephrolithiasis Calculus of kidney Hyponatremia Hyposmolality and/or hyponatremia Primary hypertension (CMS/HCC) Unspecified essential hypertension Bilateral hearing loss, unspecified hearing loss type BMI 31.0-31.9,adult Medicare annual wellness visit, subsequent- Primary ACP (advance care planning) Other specified counseling Class 1 obesity BMI 30.0-30.9,adult Type 2 diabetes mellitus with stage 3a chronic kidney disease, without long-term current use of insulin (HCC) ([facility]/HCC) Hypocitraturic calcium nephrolithiasis Calculus of kidney Stage 3a chronic kidney disease (HCC) (CMS/HCC) Essential hypertension (CMS/HCC) Unspecified essential hypertension Hyperlipidemia LDL goal <100 ([facility]/HCC) Other and unspecified hyperlipidemia Carotid stenosis, bilateral Occlusion and stenosis of carotid artery without mention of cerebral infarction Dysthymia ([facility]) Dysthymic disorder Encounter for screening mammogram for malignant neoplasm of breast Type 2 diabetes mellitus with stage 3a chronic kidney disease, without long-term current use of insulin (HCC) ([facility]/HCC)- Primary Stage 3a chronic kidney disease (HCC) (CMS/HCC) Hyperlipidemia LDL goal <100 (CMS/HCC) Other and unspecified hyperlipidemia Essential hypertension (CMS/HCC) Unspecified essential hypertension BMI 28.0-28.9,adult Viral upper respiratory tract infection Acute upper respiratory infections of unspecified site TIA (transient ischemic attack)- Primary Unspecified transient cerebral ischemia Hospital discharge follow-up Other follow-up examination Type 2 diabetes mellitus with stage 3a chronic kidney disease, without long-term current use of insulin (HCC) ([facility]/HCC) Essential hypertension (CMS/HCC) Unspecified essential hypertension Hyperlipidemia LDL goal <100 ([facility]/HCC) Other and unspecified hyperlipidemia Carotid stenosis, bilateral Occlusion and stenosis of carotid artery without mention of cerebral infarction Stage 3a chronic kidney disease (HCC) ([facility]) Medicare annual wellness visit, subsequent- Primary ACP (advance care planning) Other specified counseling Type 2 diabetes mellitus with stage 3a chronic kidney disease, without long-term current use of insulin (HCC) ([facility]/HCC) Essential hypertension (CMS/HCC) Unspecified essential hypertension Carotid stenosis, bilateral Occlusion and stenosis of carotid artery without mention of cerebral infarction Hyperlipidemia LDL goal <100 (CMS/HCC) Other and unspecified hyperlipidemia Arthritis of left knee Stage 3a chronic kidney disease (HCC) (CMS/HCC) TIA (transient ischemic attack) Unspecified transient cerebral ischemia BMI 29.0-29.9,adult Plantar fasciitis- Primary Plantar fascial fibromatosis Exostosis of right foot Contracture of right ankle documented in this encounter [facility] HealthcareEvaluation note* Diagnosis Essential hypertension (CMS/HCC)- Primary Unspecified essential hypertension Hyperlipidemia LDL goal <100 (CMS/HCC) Other and unspecified hyperlipidemia IFG (impaired fasting glucose) Stage 3a chronic kidney disease (HCC) (CMS/HCC) Hypocitraturic calcium nephrolithiasis Calculus of kidney Hyponatremia Hyposmolality and/or hyponatremia Primary hypertension (CMS/HCC) Unspecified essential hypertension Bilateral hearing loss, unspecified hearing loss type BMI 31.0-31.9,adult Medicare annual wellness visit, subsequent- Primary ACP (advance care planning) Other specified counseling Class 1 obesity BMI 30.0-30.9,adult Type 2 diabetes mellitus with stage 3a chronic kidney disease, without long-term current use of insulin (HCC) (CMS/HCC) Hypocitraturic calcium nephrolithiasis Calculus of kidney Stage 3a chronic kidney disease (HCC) (CMS/HCC) Essential hypertension (CMS/HCC) Unspecified essential hypertension Hyperlipidemia LDL goal <100 (CMS/HCC) Other and unspecified hyperlipidemia Carotid stenosis, bilateral Occlusion and stenosis of carotid artery without mention of cerebral infarction Dysthymia (CMS/HCC) Dysthymic disorder Encounter for screening mammogram for malignant neoplasm of breast Type 2 diabetes mellitus with stage 3a chronic kidney disease, without long-term current use of insulin (HCC) (CMS/HCC)- Primary Stage 3a chronic kidney disease (HCC) (CMS/HCC) Hyperlipidemia LDL goal <100 (CMS/HCC) Other and unspecified hyperlipidemia Essential hypertension (CMS/HCC) Unspecified essential hypertension BMI 28.0-28.9,adult Viral upper respiratory tract infection Acute upper respiratory infections of unspecified site TIA (transient ischemic attack)- Primary Unspecified transient cerebral ischemia Hospital discharge follow-up Other follow-up examination Type 2 diabetes mellitus with stage 3a chronic kidney disease, without long-term current use of insulin (HCC) (CMS/HCC) Essential hypertension (CMS/HCC) Unspecified essential hypertension Hyperlipidemia LDL goal <100 ([facility]) Other and unspecified hyperlipidemia Carotid stenosis, bilateral Occlusion and stenosis of carotid artery without mention of cerebral infarction Stage 3a chronic kidney disease (HCC) ([facility]) Medicare annual wellness visit, subsequent- Primary ACP (advance care planning) Other specified counseling Type 2 diabetes mellitus with stage 3a chronic kidney disease, without long-term current use of insulin ([facility]) ([facility]) Essential hypertension ([facility]) Unspecified essential hypertension Carotid stenosis, bilateral Occlusion and stenosis of carotid artery without mention of cerebral infarction Hyperlipidemia LDL goal <100 ([facility]) Other and unspecified hyperlipidemia Arthritis of left knee Stage 3a chronic kidney disease (HCC) ([facility]) TIA (transient ischemic attack) Unspecified transient cerebral ischemia BMI 29.0-29.9,adult Essential hypertension ([facility])- Primary Unspecified essential hypertension Hyperlipidemia LDL goal <100 ([facility]) Other and unspecified hyperlipidemia Type 2 diabetes mellitus with stage 3a chronic kidney disease, without long-term current use of insulin ([facility]) ([facility]) Carotid stenosis, bilateral Occlusion and stenosis of carotid artery without mention of cerebral infarction Stage 3a chronic kidney disease (HCC) ([facility]) TIA (transient ischemic attack) Unspecified transient cerebral ischemia Dysthymia ([facility]) Dysthymic disorder Encounter for screening mammogram for malignant neoplasm of breast Arthritis Unspecified arthropathy, site unspecified Encounter for screening mammogram for malignant neoplasm of breast documented in this encounter [facility] HealthcareEvaluation note* Diagnosis Essential hypertension- Primary Unspecified essential hypertension Hyperlipidemia LDL goal <100 Other and unspecified hyperlipidemia IFG (impaired fasting glucose) Stage 3a chronic kidney disease ([facility]) Hypocitraturic calcium nephrolithiasis Calculus of kidney Hyponatremia Hyposmolality and/or hyponatremia Primary hypertension Unspecified essential hypertension Bilateral hearing loss, unspecified hearing loss type BMI 31.0-31.9,adult Medicare annual wellness visit, subsequent- Primary ACP (advance care planning) Other specified counseling Class 1 obesity BMI 30.0-30.9,adult Type 2 diabetes mellitus with stage 3a chronic kidney disease, without long-term current use of insulin ([facility]) Hypocitraturic calcium nephrolithiasis Calculus of kidney Stage 3a chronic kidney disease ([facility]) Essential hypertension Unspecified essential hypertension Hyperlipidemia LDL goal <100 Other and unspecified hyperlipidemia Carotid stenosis, bilateral Occlusion and stenosis of carotid artery without mention of cerebral infarction Dysthymia Dysthymic disorder Encounter for screening mammogram for malignant neoplasm of breast Type 2 diabetes mellitus with stage 3a chronic kidney disease, without long-term current use of insulin (HCC)- Primary Stage 3a chronic kidney disease ([facility]) Hyperlipidemia LDL goal <100 Other and unspecified hyperlipidemia Essential hypertension Unspecified essential hypertension BMI 28.0-28.9,adult Viral upper respiratory tract infection Acute upper respiratory infections of unspecified site TIA (transient ischemic attack)- Primary Unspecified transient cerebral ischemia Hospital discharge follow-up Other follow-up examination Type 2 diabetes mellitus with stage 3a chronic kidney disease, without long-term current use of insulin (HCC) Essential hypertension Unspecified essential hypertension Hyperlipidemia LDL goal <100 Other and unspecified hyperlipidemia Carotid stenosis, bilateral Occlusion and stenosis of carotid artery without mention of cerebral infarction Stage 3a chronic kidney disease (CMS-HCC) Medicare annual wellness visit, subsequent- Primary ACP (advance care planning) Other specified counseling Type 2 diabetes mellitus with stage 3a chronic kidney disease, without long-term current use of insulin (HCC) Essential hypertension Unspecified essential hypertension Carotid stenosis, bilateral Occlusion and stenosis of carotid artery without mention of cerebral infarction Hyperlipidemia LDL goal <100 Other and unspecified hyperlipidemia Arthritis of left knee Stage 3a chronic kidney disease (CMS-HCC) TIA (transient ischemic attack) Unspecified transient cerebral ischemia BMI 29.0-29.9,adult Essential hypertension- Primary Unspecified essential hypertension Hyperlipidemia LDL goal <100 Other and unspecified hyperlipidemia Type 2 diabetes mellitus with stage 3a chronic kidney disease, without long-term current use of insulin (HCC) Carotid stenosis, bilateral Occlusion and stenosis of carotid artery without mention of cerebral infarction Stage 3a chronic kidney disease ([facility]) TIA (transient ischemic attack) Unspecified transient cerebral ischemia Dysthymia Dysthymic disorder Encounter for screening mammogram for malignant neoplasm of breast Arthritis Unspecified arthropathy, site unspecified Type 2 diabetes mellitus with stage 3a chronic kidney disease, without long-term current use of insulin (HCC)- Primary Stage 3a chronic kidney disease ([facility]) Essential hypertension Unspecified essential hypertension Hyperlipidemia LDL goal <100 Other and unspecified hyperlipidemia Carotid stenosis, bilateral Occlusion and stenosis of carotid artery without mention of cerebral infarction documented in this encounter [facility] Author Marvin Iglesias [facility] May 04, 2024 9:30pm Note Date/Time May 04, 2024 9:29 pm [facility] [address] [place] [address] Hospitalist H&P Signed Patient: Sarah Alfaro MR#: [id number] : 1950 Acct:[id number] Age/Sex: 74 / F Adm Date: 4 Loc: Room: [address] [place] [address] Type: ADM INOo Attending Dr: Marvin Iglesias [...] The emergency room made contact with the [facility] stroke neurointerventional team who recommended that the [...] the formulation of this which comes from [employer]. I showed the patient and her family [...] and sold for pain on various websites, including?[email or web address] and possibly in some retail stores. FDA [...] not be taken with certain medications.? Health customer care voice consultant and consumers should report adverse events or side effects related to the use of this product to [employer] Safety Information and Adverse Event Reporting Program: I, Dr. Iglesias, did go ahead and complete the [employer] Voluntary Reporting Form for this incident. Review of Systems Review of Systems Review of systems: 10 systems are reviewed and are negative except as mentioned elsewhere in the documentation. [facility] Medical History (Updated 05/04/24 @ 21:25 by [...] 25mcg PO DAILY 12/14/22 [History Confirmed 05/04/24] [id number] 8 mg-folic 400 mcg-K 50 mcg-lutein 300 [...] % (Auto) 13.3 % (.) 05/04/24 16:10 Whitman % (Auto) 7.6 % (.) 05/04/24 16:10 Eos % (Auto) 1.9 % (.) 05/04/24 16:10 Baso % (Auto) 0.9 % (.) 05/04/24 16:10 Nucleat RBC Rel Count 0.1 /100 WBC (0-0.5) 05/04/24 16:10 Neut # (Auto) 12.5 x10E3/uL (1.8-7.7) H 05/04/24 16:10 Lymph # (Auto) 2.2 x10E3/uL (1.00-4.8) 05/04/24 16:10 Whitman # (Auto) 1.2 x10E3/uL (0.0-0.8) H 05/04/24 [...] pH 5.5 (5.0-9.0) 05/04/24 16:31 Ur Specific Arnett > 1.050 (1.001-1.030) H 05/04/24 16:31 Urine [...] <Electronically signed by Marvin Iglesias DO> 05/04/242129 [facility] Work Phone: History general Narrative - Reported* Type Description Date Medical History HYPERTENSION Medical History GENERALIZED ARTHRITIS Medical History KIDNEY STONES Medical History MACULAR DEGENERATION Medical History CAROTID STENOSIS Surgical History LITHOTRIPSY X3 Surgical History HYSTERECTOMY Surgical History CHOLECYSTECTOMY Surgical History TONSILLECTOMY Surgical History CATARACT SUGERY (BILAT) Hospitalization History kidney stones/ Infection x1 week stay 1994 Hospitalization History TIA 01/2021 [facility] Other [facility] general Narrative - Reported* Type Description Date Medical History HYPERTENSION Medical History GENERALIZED ARTHRITIS Medical History KIDNEY STONES Medical History MACULAR DEGENERATION Medical History CAROTID STENOSIS Surgical History LITHOTRIPSY X3 Surgical History HYSTERECTOMY Surgical History CHOLECYSTECTOMY Surgical History TONSILLECTOMY Surgical History CATARACT SUGERY (BILAT) Surgical History Eyelid Lift Hospitalization History kidney stones/ Infection x1 week stay 1994 Hospitalization History TIA 01/2021 [facility] Other [facility] general Narrative - Reported* Type Description Date [...] week stay 1994 Hospitalization History TIA 01/2021 [facility] Other Hispm[facility] general Narrative - Reported* Type Description Date [...] week stay 1994 Hospitalization History TIA 01/2021 [facility] Other Hospital course Narrative No data available for this section [facility] Hospital Discharge instructions Additional Instructions If your symptoms return/worsen or you develop any further concerns or symptoms please see your doctor or return to the emergency department immediately.[facility] Work Phone: Hospital Discharge instructions No data available for this section [facility] No data available for this section [facility] reason for referral (narrative)No reason for referral information availableMartins Ferry [facility] Work Phone: Summary Purpose Family History No Family History [...] TIA (transient ischemic attack) Transient cerebral ischemia Chief Complaint Admit Date November 04, 2024 1 0:53am Chief Complaint Admit Date November 04, 2024 1 0:53am Pre op November 08, 2024 1 :57pm Chief Complaint Admit Date z01.818 November 04, 2024 1 0:53am Pre op November 08, 2024 1 :57pm e11.22 n18.31 e78.5 i10 z51.81 December 9:54am Chief Complaint Admit Date 1 YR FOLLOW UP; CAROTID 11A April 15 11:05am L leg pain May 09, 2025 2:52 pm Reason for Visit Admit Date Carotid stenosis, bilateral April 15 11:05am Non-smoker April 15, 2025 11:0 5am Additional Source Comments INFORMATION SOURCE (unrecogn ized section and content) DATE CREATED AUTHOR 12/11/2020 [facility] DATE CREATED AUTHOR AUTHOR'S ORGANIZ ATION 02/23/2022 [facility] DATE CREATED AUTHOR AUTHOR'S ORGANIZ ATION 03/29/2024 [facility] DATE CREATED AUTHOR AUTHOR'S ORGANIZ ATION 05/05/2025 [facility] d[facility] Specialists EPIC DATE CREATED AUTHOR AUTHOR'S ORGANIZ ATION 05/13/2025 [facility] REASON FOR VISIT (unrecogniz ed section and content) Reason Comments Routine 3 Mo Follow-up Reason Comments Medicare Annual Wellness Visit Subsequen t 4 month follow up Reason Comments Plantar Fasciitis PF F/U Reason Comments Follow-up 1M HEEL SPUR CHECK Reason Onset Date Comments Procedure 10/01/2024 Surgery in [place] Reason Comments Consent Or Instructions Pre op- rt fasci otomy Reason Comments Post-op 1st post op- rt pfa Reason Comments Post-op 21d s/p rt pfa Reason Comments Routine 4 Mo Follow Up Care Teams (unrecognized sec tion and content) Team Status: Inactive Member Role Status Dates Sharmaine Wong , DO Primary Care Provider Active Jazmin Mauro MD Attending Provider Active Team Status: Inactive Member Role Status Dates Sharmaine Wong , DO Primary Care Provider Active NADER Lynn Attending Provider Active Team Status: Inactive Member Role Status Dates Sharmaine Wong , DO Primary Care Provider, Attend ing Provider Active Team Status: Inactive Member Role Status Dates Sharmaine Wong , DO Primary Care Provider Active CHEKO GasparC Attending Provider Active Team Status: Active Member Role Status Dates Sharmaine Wong , DO Primary Care Provider Active Team Status: Inactive Member Role Status Dates Sharmaine Wong , DO Primary Care Provider Active Delfino Goncalves , Emergency Provider Active Team Status: Inactive Member Role Status Dates Sharmaine Wong , DO Primary Care Provider Active Christiaon Murillo MD Attending Provider Active Team Status: Inactive Member Role Status Dates Sharmaine Wong , DO Primary Care Provider Active Scott Sellers MD Attending Provider Active Team Status: Inactive Member Role Status Dates Sharmaine Wong , DO Primary Care Provider Active Scott Sellers MD Admit Provider, Attending Provide r Active Team Status: Inactive Member Role Status Dates Sharmaine Wong , DO Primary Care Provider Active Zeus Dolan MD Attending Provider Active Cherry Dipper Relationship Specialty Start Date End Date Sharmaine Wong DO [address] [facility] [address] [place] [address] PCP - ACO Reach 03/16/23 Sharmaine Wong DO [address] [facility] [address] [place] [address] PCP - General Internal Medicine 12/01/23 Dax De Oliveira MD [address] [place] [address] Referring Physician Ophthalmology 09/20/23 [place] [address] [place] [id number] Referring Physician Urology 09/20/23 Scott Sellers MD [address] [place] [phone] Referring Physician Vascular Surgery 09/20/23 Team Status: [...] May 04, 2024 End: May 07, 2024 Cherry Dipper Relationship Specialty Start Date End Date Sharmaine Wong DO [address] [place] [address] PCP - ACO Reach 03/16/23 Sharmaine Wong DO [address] [address] [place] [address] PCP - General Internal Medicine 12/01/23 Dax De Oliveira MD [address] [place] [address] Referring Physician Ophthalmology 09/20/23 Jazmin Mauro MD [address] [place] [address] Referring Physician Urology 09/20/23 Scott Sellers MD [address] [address] Referring Physician Vascular Surgery 09/20/23 Cherry Dipper Relationship Specialty Start Date End Date Sharmaine Wong DO [address] [place] [address] PCP - ACO Reach 03/16/23 Sharmaine Wong DO [address] [place] [address] PCP - General Internal Medicine 12/01/23 Dax De Oliveira MD [address] [facility] [place] [address] Referring Physician Ophthalmology 09/20/23 Jazmin Mauro MD [address] [place] [address] Referring Physician Urology 09/20/23 Scott Sellers MD [address] [address] Referring Physician Vascular Surgery 09/20/23 Cherry Dipper Relationship Specialty Start Date End Date Sharmaine Wong DO [address] [facility] 230 [place] [address] PCP - ACO Reach 03/16/23 Sharmaine Wong DO [address] [place] [address] PCP - General Internal Medicine 12/01/23 Dax De Oliveira MD [address] [facility] [place] [address] Referring Physician Ophthalmology 09/20/23 Jazmin Mauro MD [address] [place] [address] Referring Physician Urology 09/20/23 Scott Sellers MD [address] [place] [phone] Referring Physician Vascular Surgery 09/20/23 Cherry Dipper Relationship Specialty Start Date End Date Sharmaine Wong DO [address] [facility] 230 [place] [address] PCP - ACO Reach 03/16/23 Sharmaine Wong DO [address] [facility] 230 [place] [address] PCP - General Internal Medicine 12/01/23 Dax De Oliveira MD [address] [facility] [place] [address] Referring Physician Ophthalmology 09/20/23 Jazmin Mauro MD [address] [place] [address] Referring Physician Urology 09/20/23 Scott Sellers MD [address] [address] Referring Physician Vascular Surgery 09/20/23 Cherry Dipper Relationship Specialty Start Date End Date Sharmaine Wong DO [address] [place] [address] PCP - ACO Reach 03/16/23 Sharmaine Wong DO [address] [place] [address] PCP - General Internal Medicine 12/01/23 Dax De Oliveira MD [address] [place] [phone] Referring Physician Ophthalmology 09/20/23 Jazmin Mauro MD 2800 [place] [address] Referring Physician Urology 09/20/23 Scott Sellers MD [address] [place] [phone] Referring Physician Vascular Surgery 09/20/23 Cherry Dipper Relationship Specialty Start Date End Date Sharmaine Wong DO [address] [place] [address] PCP - ACO Reach 03/16/23 Sharmaine Wong DO [address] [place] [address] PCP - General Internal Medicine 12/01/23 [place] [address] [place] [address] Referring Physician Ophthalmology 09/20/23 Jazmin Mauro MD [address] [facility] [place] [address] Referring Physician Urology 09/20/23 Scott Sellers MD [address] [place] [phone] Referring Physician Vascular Surgery 09/20/23 Team Status: Inactive Member Role Status Dates Sharmaine Wong DO Primary Care Provider Active Start: November 04, 2024 End: November 04, 2024 Ambrosio Mcghee DPM Attending Provider Active Start: November 04, 2024 End: November 04, 2024 Team Status: Inactive Member Role Status Dates Sharmaine Wong DO Primary Care Provider Active Start: November 08, 2024 End: November 08, 2024 Ambrosio Mcghee DPM Attending Provider Active Start: November 08, 2024 End: November 08, 2024 Cherry Dipper Relationship Specialty Start Date End Date Sharmaine Wong DO [address] [facility] 230 [place] [address] PCP - ACO Reach 03/16/23 Sharmaine Wong DO [address] [facility] 230 [place] [address] PCP - General Internal Medicine 12/01/23 Dax De Oliveira MD [address] [place] [phone] Referring Physician Ophthalmology 09/20/23 Jazmin Mauro MD [address] [place] [place] [address] Referring Physician Urology 09/20/23 Scott Sellers MD [address] [place] [phone] Referring Physician Vascular Surgery 09/20/23 Team Status: Inactive Member Role Status Dates Sharmaine Wong DO Primary Care Pr ovidmicah, Attending Provider Active Start: December 25, 2024 End: December 25, 2024 Cherry Dipper Relationship Specialty Start Date End Date Sharmaine Wong DO [address] [facility] 230 [place] [address] PCP - ACO Reach 03/16/23 Sharmaine Wong DO [address] [facility] [place] [address] PCP - General Internal Medicine 12/01/23 Dax De Oliveira MD [address] [place] [phone] Referring Physician Ophthalmology 09/20/23 Jazmin Mauro MD [address] [place] [place] [address] Referring Physician Urology 09/20/23 Scott Sellers MD [address] [place] [phone] Referring Physician Vascular Surgery 09/20/23 Cherry Dipper Relationship Specialty Start Date End Date Sharmaine Wong DO [address] [place] [address] PCP - ACO Reach 03/16/23 Sharmaine Wong DO [address] [place] [address] PCP - General Internal Medicine 12/01/23 Dax De Oliveira MD [address]00 [place] [address] Referring Physician Ophthalmology 09/20/23 Jazmin Mauro MD [address] [place] [address] Referring Physician Urology 09/20/23 Scott Sellers MD [address] [place] [address] Referring Physician Vascular Surgery 09/20/23 Team Status: Inactive Member Role Status Dates Sharmaine Wong DO Primary Care Provider Active Start: April 15, 2025 End: April 15, 2025 Carissa Dias NP-C Attending Provider Active Start: April 15, 2025 End: April 15, 2025 Team Status: Inactive Member Role Status Dates Sharmaine Wong DO Primary Care Provider Active Start: May 09, 2025 End: May 09, 2025 Delmi Vines APRN Emergency Provider Active S tart: May 09, 2025 End: May 09, 2025 Goals (unrecognized section and content) Goals may [...] BE BASED ON THE PRIMARY CLINICAL RECORDS. [facility] [employer] [facility]. provides no warranty or guarantee of the accuracy or completeness of information in this document.
== END 2025-05-22 09:38 | disposition home or self-care (01) ==
LOC: PM 09:38
PROVIDERS: PCP Internal Medicine; Visit Provider Nurse Practitioner
DX: M48.062 Spinal stenosis, lumbar region with neurogenic claudication (principal); M46.1 Sacroiliitis, not elsewhere classified; M47.816 Spondylosis without myelopathy or radiculopathy, lumbar region
CPT/HCPCS: G0463

== ENCOUNTER 2025-06-02 12:12 | Day surgery (SDC) | payer MEDICARE, OTHER, SELFPAY ==
[2025-06-02 12:20] VITALS: BP 135/71; PULSE 59; TEMP 36.3; O2SAT 92
[2025-06-02 12:50] VITALS: BP 156/76; PULSE 60; PULSE 66; O2SAT 96; O2SAT 97
[2025-06-02 12:51] VITALS: BP 152/68
[2025-06-02] MEDS: BUPIVACAINE HCL 0.25% PF 25 MG/10 ML VIAL INJ (12:52)
[2025-06-02] MEDS: IOHEXOL 240 MG/ML - 10 ML VIAL INJ (12:52)
[2025-06-02] MEDS: 0.9 % SODIUM CHLORIDE 10 ML SYRINGE - SALINE FLUSH INJ (12:52)
[2025-06-02] MEDS: LIDOCAINE HCL 2% 400 MG/20 ML MDV INJ (12:53)
[2025-06-02] MEDS: METHYLPREDNISOLONE ACETATE 80 MG/ML VIAL INJ (12:53)
--- NOTE | 2025-06-02 12:54 | P.ON_ITS ---
Date of procedure: 06/02/25 Pre-op diagnosis: Pain due to lumbar stenosis with neurogenic claudication Post-op diagnosis: same as pre-op Procedure: Procedure: Left L4-5, L5-S1 transforaminal epidural steroid injection Medications: Bupivacaine 0.25% 2cc, lidocaine 2% 1cc, depomedrol 80mg The patient was seen and examined in the preoperative holding area.? Informed consent was obtained and placed on the chart.? Patient was brought to the medical procedure unit and placed in the prone position where a timeout was completed verifying the correct patient, procedure site, position, and planned special equipment using sterile aseptic technique.? Under direct fluoroscopic visualization a 25-gauge Quincke tipped spinal needle was advanced to the designated neural foramen where contrast dye was injected to show adequate spread.? The needle was inserted at level left L4-5. There was no evidence of vascular or adverse uptake.? Epidural spread was appreciated.? The above- mentioned injectate was then placed in a 1.5 mL aliquot preceded by negative aspiration.? The needle was removed. The needle was inserted and the procedure repeated at level left L5-S1.? The surgery site was covered.? Patient was taken to the postprocedural recovery area and monitored for an appropriate length of time before found suitable for discharge in the accompaniment of a responsible adult. Anesthesia: Local Surgeon: Kerry Stallworth Pathology: none sent Condition: stable Disposition: no change
--- NOTE | 2025-06-02 12:58 | PC.NURSE ---
pain level 0/10 upon discharge
== END 2025-06-02 12:58 | disposition home or self-care (01) ==
LOC: SURGOUT 12:13
PROVIDERS: PCP Internal Medicine; Visit Provider Anesthesiology
DX: M48.062 Spinal stenosis, lumbar region with neurogenic claudication (principal); M54.50 Low back pain, unspecified
CPT/HCPCS: 64483; 64484; J0665; J1010; Q9966

== ENCOUNTER 2025-06-12 09:29 | Outpatient (OUT) | payer MEDICARE, OTHER, SELFPAY ==
--- OUTSIDE RECORDS SUMMARY | 2025-06-12 09:31 | XMS_ITS ---
Author Organization [facility] Address [address] [facility] [place] [address] Care Team Providers Care Labor Relations Specialist Name Role Phone Sharmaine Fletcher DO Unavailable [phone] Dax De Oliveira MD Unavailable [phone] Teddy Antonio MD Unavailable [phone] Scott Sellers MD Unavailable [phone] Sharmaine Fletcher DO Primary Care Provider Chronic Care Management (CCM) Status:Enrolled (Active) Start date:03/09/2023 Enrollment date:03/09/2023 Overview 12/19/23, 2:41 PM - Isabelle Ferrara MA- Patient gives verbal consent to be enrolled in CCM Program and understands there could be a bill for this service. Case Team Name Relationship Phone Isabelle Ferrara MA(Responsible Staff) Clinical Ad vocate [phone] Continued Care and Services Coordination
--- OUTSIDE RECORDS SUMMARY | 2025-06-12 09:31 | XMS_ITS | Encounter Summary ---
Author Organization [facility] Address [address] [facility] [place] [address] Care Team Providers Care Hospital Clerk Name Role Phone Sharmaine Fletcher DO Unavailable [phone] Dax De Oliveira MD Unavailable [phone] Teddy Antonio MD Unavailable [phone] Scott Sellers MD Unavailable [phone] Sharmaien Fletcher DO Primary Care Provider Encounter Details Date Type Department Care Team (Late st Contact Info) Description 11/08/2024 External Result Encounter [facility] External Department Unsolicited Ambrosio Corral, DPM [address] [address] Social History Tobacco Use Types Packs/Day Years [...] Medicine [address] [place] [address] Sharmaine Fletcher, DO [address] [place] [address] documented as of this encounter Procedures Procedure Name Priority Date/Time Associated Diagnosis Comments ECG 12-LEAD 11/08/2024 2:18 PM EST documented in this encounter Results * ECG 12 lead (11/08/2024 2:18 PM EST) 11/08/2024 2:18 PM EST Narrative [facility] 11/09/2024 12:51 PM EST [facility] Main [address] [address] Electrocardiograph Report Signed Patient: Gwen Alfaro MR#: [id number] : 1950 Acct:[id number] Age/Sex: 74 / F ADM Date: 11/08/24 Loc: Room: Type: [facility] Attending Dr: Ambrosio Corral DPM Ordering [...] Procedure Note Lurdes Mccracken MD - 11/09/2024 [facility] Main [address] [address] Electrocardiograph Report Signed Patient: Gwen Alfaro CMR#: [id number] : 2Acct:[id number] Age/Sex: 74 / FADM Date: 11/08/24 Loc: Room:Type: [facility] Attending Dr: Ambrosio Corral DPM Ordering [...] in Anterior leads Confirmed by SIMRAN URBINA [facility], LURDES ([id number]) on 11/09/2024 12:50:45 PM Referred By: Electronically Signed By: LURDES MCCRACKEN MD [facility] Transcribed By: MUS Signed By Lurdes Mccracken MD, FACC 11/09/24 1250 us Ambrosio Corral DPM ECG ORDERABLES Final Resul t [address] [address], documented in this encounter Visit Diagnoses Not on filedocumented in this encounter Care Teams Hospital Clerk Relationship Specialty Start Date End Date Sharmaine Fletcher DO [address] [place] [address] PCP - ACO Reach 03/16/23 Sharmaine Fletcher DO [address] [place] [address] PCP - General Internal Medicine 12/01/23 Dax De Oliveira MD [address] [place] [address] Referring Physician Ophthalmology 09/20/23 Teddy Antonio MD [address] [place] [address] Referring Physician Urology 09/20/23 Scott Sellers MD [address] [place] [address] Referring Physician Vascular Surgery 09/20/23 documented as of this encounter
--- OUTSIDE RECORDS SUMMARY | 2025-06-12 09:31 | XMS_ITS | Encounter Summary ---
Author Organization [facility] Address [address] [facility] [place] [address] Care Team Providers Care Election Judge Name Role Phone Sharmaine Fletcher DO Unavailable [phone] Dax De Oliveira MD Unavailable [phone] Teddy Antonio MD Unavailable [phone] Scott Sellesr MD Unavailable [phone] Sharmaine Fletcher DO Primary Care Provider Encounter Details Date Type Department Care Team (Late st Contact Info) Description 08/28/2024 Orders Only [facility] Internal Medicine [address] [facility] [address] [place] [phone] A, Unknown Practice [address] [place], [place] [phone] Social History Tobacco Use Types Packs/Day Years [...] Visit [facility] [place] [facility] [address] [facility] 230 [place] [address] Sharmaine Fletcher DO [address] [facility] 230 [place] [address] documented as of this encounter Procedures Procedure [...] on filedocumented in this encounter Care Teams Election Judge Relationship Specialty Start Date End Date Sharmaine Fletcher DO [address] [facility] [address] [place] [address] PCP - ACO Reach 03/16/23 Sharmaine Fletcher DO [address] [facility] 230 [place] [address] PCP - General Internal Medicine 12/01/23 Dax De Oliveira MD [address] [place] [address] Referring Physician Ophthalmology 09/20/23 Teddy Antonio MD [address] [place] [address] Referring Physician Urology 09/20/23 Scott Sellers MD [address] [place] [address] Referring Physician Vascular Surgery 09/20/23 documented as of this encounter
--- OUTSIDE RECORDS SUMMARY | 2025-06-12 09:31 | XMS_ITS | Encounter Summary ---
Author Organization [facility] Address [address] [facility] [place] [address] Care Team Providers Care Yard Attendant Name Role Phone Sharmaine Fletcher DO Unavailable [phone] Dax De Oliveira MD Unavailable [phone] Teddy Antonio MD Unavailable [phone] Scott Sellers MD Unavailable [phone] Sharmaine Fletcher DO Primary Care Provider Encounter Details Date Type Department Care Team (Late st Contact Info) Description 07/24/2024 Orders Only [facility] Internal Medicine [address] [facility] [address] [place] [phone] A, Unknown Practice [address] [place], [place] [phone] Social History Tobacco Use Types Packs/Day Years [...] Visit [facility] [place] [facility] [address] [facility] 230 [place] [address] Sharmaine Fletcher DO [address] [facility] [address] [address] [address] [facility] 230 [place] [address] documented as of this encounter Procedures Procedure [...] on filedocumented in this encounter Care Teams Yard Attendant Relationship Specialty Start Date End Date Sharmaine Fletcher DO [address] [facility] 230 [place] [address] PCP - ACO Reach 03/16/23 Sharmaine Fletcher DO [address] [facility] 230 [place] [address] PCP - General Internal Medicine 12/01/23 Dax De Oliveira MD [address]00 [place] [address] Referring Physician Ophthalmology 09/20/23 Teddy Antonio MD [address] [place] [address] Referring Physician Urology 09/20/23 Scott Sellers MD [address] [place] [address] Referring Physician Vascular Surgery 09/20/23 documented as of this encounter
--- OUTSIDE RECORDS SUMMARY | 2025-06-12 09:31 | XMS_ITS | Encounter Summary ---
Author Organization [facility] Address [address] [facility] [place] [address] Care Team Providers Care System Technologist Name Role Phone Sharmaine Fletcher DO Unavailable [phone] Dax De Oliveira MD Unavailable [phone] Teddy Antonio MD Unavailable [phone] Scott Sellers MD Unavailable [phone] Sharmaine Fletcher DO Primary Care Provider Encounter Details Date Type Department Care Team (Late st Contact Info) Description 05/08/2024 Orders Only [facility] Internal Medicine [address] [facility] [address] [place] [phone] A, Unknown Practice [address] [place], [place] [phone] Social History Tobacco Use Types Packs/Day Years [...] [address] [place] [address] Sharmaine Fletcher DO [address] [place] [address] documented as of this encounter Procedures Procedure [...] on filedocumented in this encounter Care Teams System Technologist Relationship Specialty Start Date End Date Sharmaine Fletcher DO [address] [place] [address] PCP - ACO Reach 03/16/23 Sharmaine Fletcher DO [address] [place] [address] PCP - General Internal Medicine 12/01/23 Dax De Oliveira MD [address] [facility] [place] [address] Referring Physician Ophthalmology 09/20/23 Teddy Antonio MD [address] [place] [address] Referring Physician Urology 09/20/23 Scott Sellers MD [address] [place] [address] Referring Physician Vascular Surgery 09/20/23 documented as of this encounter
--- OUTSIDE RECORDS SUMMARY | 2025-06-12 09:31 | XMS_ITS | Encounter Summary ---
Author Organization [facility] Address [address] [facility] [place] [address] Care Team Providers Care Cleaners Name Role Phone Sharmaine Fletcher DO Unavailable [phone] Dax De Oliveira MD Unavailable [phone] Teddy Antonio MD Unavailable [phone] Scott Sellers MD Unavailable [phone] Sharmaine Fletcher DO Primary Care Provider Encounter Details Date Type Department Care Team (Late st Contact Info) Description 08/05/2024 Orders Only [facility] Internal Medicine [address] [facility] [address] [place] [phone] A, Unknown Practice [address] [place], [place] [phone] Social History Tobacco Use Types Packs/Day Years [...] [address] [place] [address] Sharmaine Fletcher DO [address] [place] [address] documented as of this encounter Procedures Procedure [...] on filedocumented in this encounter Care Teams Cleaners Relationship Specialty Start Date End Date Sharmaine Fletcher DO [address] [place] [address] PCP - ACO Reach 03/16/23 Sharmaine Fletcher DO [address] [place] [address] PCP - General Internal Medicine 12/01/23 Dax De Oliveira MD [address] [facility] [place] [address] Referring Physician Ophthalmology 09/20/23 Teddy Antonio MD [address] [place] [address] Referring Physician Urology 09/20/23 Scott Sellers MD [address] [place] [address] Referring Physician Vascular Surgery 09/20/23 documented as of this encounter
--- OUTSIDE RECORDS SUMMARY | 2025-06-12 09:31 | XMS_ITS | Encounter Summary ---
Author Organization [facility] Address [address] [facility] [place] [address] Care Team Providers Care Spinning Lathe Operator Name Role Phone Sharmaine Fletcher DO Unavailable [phone] Dax De Oliveira MD Unavailable Teddy Antonio MD Unavailable [phone] Scott Sellers MD Unavailable [phone] Sharmaine Fletcher DO Primary Care Provider Encounter Details Date Type Department Care Team ([facility] Contact Info) Description 10/28/2024 Orders Only [facility] Internal Medicine [address] [facility] [address] [place] [phone] Unallocated, Noms MD Ben [address] [place] [place], [place] [phone] Social History Tobacco Use Types Packs/Day Years [...] Visit [facility] [place] [facility] [address] [facility] 230 [place] [address] Sharmaine Fletcher DO [address] [facility] 230 [place] [address] documented as of this encounter Procedures Procedure [...] on filedocumented in this encounter Care Teams Spinning Lathe Operator Relationship Specialty Start Date End Date Sharmaine Fletcher DO [address] [facility] 230 [place] [address] PCP - ACO Reach 03/16/23 Sharmaine Fletcher DO [address] [facility] 230 [place] [address] PCP - General Internal Medicine 12/01/23 Dax De Oliveira MD [address]00 [place] [address] Referring Physician Ophthalmology 09/20/23 Teddy Antonio MD [address] [place] [address] Referring Physician Urology 09/20/23 Scott Sellers MD [address] [place] [address] Referring Physician Vascular Surgery 09/20/23 documented as of this encounter
--- OUTSIDE RECORDS SUMMARY | 2025-06-12 09:32 | XMS_ITS | Encounter Summary ---
Author Organization [facility] Address [address] [facility] [place] [address] Care Team Providers Care Oracle R12 Developer Name Role Phone Sharmaine Fletcher DO Unavailable [phone] Dax De Oliveira MD Unavailable [phone] Teddy Antonio MD Unavailable [phone] Scott Sellers MD Unavailable [phone] Sharmaine Fletcher DO Primary Care Provider Encounter Details Date Type Department Care Team (Late st Contact Info) Description 03/29/2023 Orders Only [facility] [address] [facility] [address] [place] [address] Provider, MD Chriss [address] [place] [address] Social History Tobacco Use Types Packs/Day [...] Visit [facility] [address] [place] [address] Sharmaine Fletcher DO [address] [place] [address] documented as of this encounter Procedures Procedure Name Priority Date/Time Associated Diagnosis Comments SCANNED LABS Routine 03/28/2023 10:05 AM EDT documented in this encounter Results * SCANNED LABS (03/28/2023 10:05 AM EDT) us Historical Provider LAB CHG PERFORMABLES Edit ed Result - Final documented in this encounter Visit Diagnoses Not on filedocumented in this encounter Care Teams Oracle R12 Developer Relationship Specialty Start Date End Date Sharmaine Fletcher DO [address] [facility] [address] [facility] 230 [place] [address] PCP - ACO Reach 03/16/23 Sharmaine Fletcher DO [address] [facility] 230 [place] [address] PCP - General Internal Medicine 12/01/23 Dax De Oliveira MD 2600 [place] [address] Referring Physician Ophthalmology 09/20/23 Teddy Antonio MD [address] [place] [address] Referring Physician Urology 09/20/23 Scott Sellers MD [address] [place] [address] Referring Physician Vascular Surgery 09/20/23 documented as of this encounter
--- OUTSIDE RECORDS SUMMARY | 2025-06-12 09:32 | XMS_ITS | Clinical Summary ---
Author Organization [facility] Address [id number] [address] [place] [address] Care Team Providers Care Non Food Receiving Clerk Name Role Phone DamianSharmaine Dempsey DO Primary Care Provider Social History Tobacco Use Types Packs/Day Years Used Date Smoking Tobacco: Never Assessed Comments Unknown Sex and Gender Information Value Date Recorded Sex Assigned at Not on file Legal Sex Female 5:10 PM EDT Gender Identity Not on file Sexual Orientation Not on file Plan of Treatment Health Maintenance Due Date Last Done Comments Depression Screening 1962 Tobacco Screening 1962 Adult BMI Screening 01/23/1970 DTaP,Tdap and Td Vaccines (1 - Tdap) 01/23/1971 Fall Risk Screening 01/23/2017 COVID-19 Vaccine (2023-2 5 season) 2024 09/03/2021, 09/01/2021, 08/13/2021, Additional history exists Influenza Vaccine 06/23/2025 08/28/2023, , 07/15/2021, Additional history exists Zoster (Shingles) Vaccine Completed 2019, 10/17/2019, 01/20/2016 Medical Devices Not on file Insurance [facility]ICARE [facility] Care Teams Non Food Receiving Clerk Relationship Specialty Start Date End Date Sharmaine Fletcher DO PCP - General Internal Medicine 05/05/24
--- OUTSIDE RECORDS SUMMARY | 2025-06-12 09:32 | XMS_ITS | Clinical Summary ---
Author Organization [facility] Address [address] [place] [address] Care Team Providers Care Safety Deposit Supervisor Name Role Phone Sharmaine Fletcher DO Unavailable [phone] Dax De Oliveira MD Unavailable [phone] Teddy Antonio MD Unavailable [phone] Scott Sellers MD Unavailable [phone] Sharmaine Fletcher DO Primary Care Provider Allergies No known active allergies Medications aspirin 81 MG chewable tablet Chew 81 mg 1 (one) time each day at the same time. Active estradiol (Estrace) 0.1 MG/GM vaginal cream Insert 1 g into the vagina 2 (two) times a week. Active Meloxicam 15 MG tablet dispersibleIndica tions:Arthritis Take 15 mg by mouth Daily 30 tablet 3 12/26/2024 Active amLODIPine (Norvasc) 5 MG tabletIndications :Essential (primary) hypertension TAKE 1 TABLET BY MOUTH EVERY DAY 90 tablet 3 02/10/2025 Active atorvastatin (Lipitor) 80 MG tabletIndications :Hyperlipidemia, unspecified TAKE 1 TABLET BY MOUTH EVERY DAY 90 tablet 3 02/10/2025 Active escitalopram (Lexapro) 10 MG tabletIndications :Depression with anxiety Take 1 tablet (10 mg) by mouth Daily 90 tablet 3 05/08/2025 Active metoprolol succinate XL (Toprol-XL) 100 MG 24 hr tabletIndications :Essential hypertension Take 1 tablet (100 mg) by mouth Daily 90 tablet 3 05/08/2025 Active Active Problems Problem Noted Date Diagnosed Date [...] choices, regular exercise and weight management) for halfway control of blood pressure. Pt is aware [...] choices, regular exercise and weight management) for halfway control of blood pressure. Limit salt. Follow [...] choices, regular exercise and weight management) for halfway control of blood pressure. Limit salt. Follow [...] mg daily! 08/2023 LDL=53 04/2024 LDL=64 12/2024: WK=235; HDL=60; PN=536; LDL=64; TC/HDL=2.7 Assessment & Plan (05/01/2025 11:40 AM EDT): -The importance of dietary modification, regular cardiovascular activity and compliance with any prescribed medication for terminal operator management/control of lipids has been [...] and compliance with any prescribed medication for intermediate management/control of lipids has been discussed. Since [...] and compliance with any prescribed medication for halfway management/control of lipids. High cholesterol (especially LDL) [...] and compliance with any prescribed medication for halfway management/control of lipids. High cholesterol (especially LDL) [...] and compliance with any prescribed medication for halfway management/control of lipids. High cholesterol (especially LDL) [...] and compliance with any prescribed medication for halfway management/control of lipids. High cholesterol (especially LDL) [...] modification, routine exercise and weight control for halfway DM management and reduction in risk for [...] modification, routine exercise and weight control for halfway DM management and reduction in risk for [...] modification, routine exercise and weight control for halfway DM management and reduction in risk for [...] modification, routine exercise and weight control for halfway DM management and reduction in risk for [...] modification, routine exercise and weight control for halfway glucose management and reduction in risk for [...] increased. Of particular concern is that a [place] Heart Study analysis concluded that, after other [...] increased. Of particular concern is that a [place] Heart Study analysis concluded that, after other [...] Department Care Team Description 05/13/2025 Patient Outreach [facility] [employer] [address] [place] [address] Barb Sheldon RN 05/08/2025 [facility]ill [facility] [address] [place] [address] Candy Lincoln LPN Depression with anxiety; Essential hypertension 05/01/2025 10:45 AM EDT Office Visit [facility] [address] [place] [address] Sharmaine Fletcher, Type 2 diabetes mellitus with stage 3a chronic kidney disease, without long-term current use of insulin (HCC) (Primary Dx); Stage 3a chronic kidney disease (CMS-HCC); Essential hypertension ; Hyperlipidemia LDL goal <100 ; Carotid stenosis, bilateral 05/01/2025 Travel 04/30/2025 Travel 04/28/2025 Refill [facility] [address] [place] [address] Sharmaine Fletcher, Essential hypertension ; Depression with [...] Brain Aneurysm Mother Melanie Arellano Cirrhosis Mother Melanie Arellano Diabetes Mother [place] Adan Hypertension Mother [place] Ad[place] Cirrhosis Sister Katiamaria d Ledesma Diabetes Sister Katia Ledesma Heart disease Sister Katia Ledesma Hyperlipidemia Sister Katia Ledesma Hypertension Sister Katia Ledesma Multiple sclerosis Sister Katiamaria d Ledesma Relation Name Status Comments Brother 1 [...] Medicine [address] [place] [id number] Sharmaine Fletcher DO [address] [place] [address] Health Maintenance Due Date Last Done Comments [...] insulin (HCC) Stage 3a chronic kidney disease ([facility]-HCC) DIABETIC RETINOPATHY SCREENING - OU - BOTH EYES Routine 10/28/2024 11:30 AM EST COLONOSCOPY DIAGNOSTIC Routine 9:33 AM EDT from Last 3 Months or Most Recently Relevant to Health Maintenance Results * POCT Glycated hemoglobin, total (05/01/2025 11:32 AM EDT) Hemoglobin A1C 6.6 Blood 05/01/2025 11:3 2 AM EDT Sharmaine Fletcher DO POINT OF CARE TEST ENTE [...] Mammogram ELECTRONICALLY SIGNED BY: Quan Wright M.D. Sharmaine Fletcher DO IMG BI PROCEDURES Final Result * Microalbumin / creatinine urine ratio (12/25/2024 11:35 AM EST) MICROALBUMIN, URINE <0.7 0.0 - 1.8 mg/dL 12/25/2024 4:16 PM [facility] CREATININE, URINE (RANDOM) 46.00 mg/dL 12/25/2024 4:12 PM [facility] Comment:No reference range e stablished MICROALBUMIN/CR EATININE RATIO Test not performed 0.0 - 30.0 12/25/2024 4:16 PM [facility] Other Urine specimen obtained by clean catch procedure / Unknown 12/25/2024 11:35 AM EST 12/25/2024 1:36 PM EST Sharmaine Fletcher DO LAB URINE ORDERABLES Fi nal Result Performing Organization Address City/State/[facility] Co de Phone Number [facility] [address] [place] [address], [facility] [address] [place] [address] * (ABNORMAL) Diabetic Retinopathy Screening - OU - Both Eyes (10/28/2024 11:30 AM EST) Anatomical Region Laterality Modality Head Other [facility] Provider Unallocated OPHTH PHOTOGRAPHY F inal Result * COLONOSCOPY DIAGNOSTIC (03/31/2023 9:33 AM EDT) Anatomical Region Laterality Modality Radiographic Ada ging Historical Provider IMG XR PROCEDURES Edited Result - Final from Last 3 Months or Most Recently Relevant to Health Maintenance Insurance [facility] Care Teams Safety Deposit Supervisor Relationship Specialty Start Date End Date Sharmaine Fletcher DO [address] [place] [address] PCP - ACO Reach 03/16/23 Sharmaine Fletcher DO [address] [place] [address] PCP - General Internal Medicine 12/01/23 Dax De Oliveira MD [address] [place] [address] Referring Physician Ophthalmology 09/20/23 Teddy Antonio MD [address] [place] [address] Referring Physician Urology 09/20/23 Scott Sellers MD [address] [place] [address] Referring Physician Vascular Surgery 09/20/23
--- OUTSIDE RECORDS SUMMARY | 2025-06-12 09:32 | XMS_ITS | Encounter Summary ---
Author Organization [facility] Address [address] [place] [address] Care Team Providers Care Floor Covering Printer Name Role Phone Sharmaine Fletcher DO Unavailable [phone] Dax De Oliveira MD Unavailable [phone] Teddy Antonio MD Unavailable [phone] Scott Sellers MD Unavailable [phone] Sharmaine Fletcher DO Primary Care Provider Encounter Details Date Type Department Care Team (Late st Contact Info) Description 03/31/2023 Orders Only [facility] [address] [place] [address] Provider, MD Chriss [address] [place] [address] Social History Tobacco Use Types Packs/Day [...] Visit [facility] [address] [place] [address] Sharmaine Fletcher DO [address] [place] [address] documented as of this encounter Procedures Procedure [...] on filedocumented in this encounter Care Teams Floor Covering Printer Relationship Specialty Start Date End Date Sharmaine Fletcher DO [address] [facility] [address] [place] [address] PCP - ACO Reach 03/16/23 Sharmaine Fletcher DO [address] [facility] [address] [place] [address] PCP - General Internal Medicine 12/01/23 Dax De Oliveira MD [address] [place] [address] Referring Physician Ophthalmology 09/20/23 Teddy Antonio MD [address] [place] [address] Referring Physician Urology 09/20/23 Scott Sellers MD [address] [place] [address] Referring Physician Vascular Surgery 09/20/23 documented as of this encounter
--- OUTSIDE RECORDS SUMMARY | 2025-06-12 09:32 | XMS_ITS | Encounter Summary ---
Author Organization [facility] Address [address] [facility] [place] [address] Care Team Providers Care Body Shop Floorperson Name Role Phone Sharmaine Fletcher DO Unavailable [phone] Dax De Oliveira MD Unavailable [phone] Teddy Antonio MD Unavailable [phone] Scott Sellers MD Unavailable [phone] Sharmaine Fletcher DO Primary Care Provider Encounter Details Date Type Department Care Team (Late st Contact Info) Description 06/05/2023 Orders Only [facility] [address] [facility] [address] [place] [phone] Charito Carranza, FIREBREAK CUTTER [address] [place] [address] Social History Tobacco Use Types [...] Medicine [address] [place] [address] Sharmaine Fletcher DO [address] [place] [address] documented as of this encounter Visit Diagnoses Not on filedocumented in this encounter Care Teams Body Shop Floorperson Relationship Specialty Start Date End Date Sharmaine Fletcher DO [address] [place] [address] PCP - ACO Reach 03/16/23 Sharmaine Fletcher DO [address] [place] [address] PCP - General Internal Medicine 12/01/23 Dax De Oliveira MD [address] [place] [address] Referring Physician Ophthalmology 09/20/23 Teddy Antonio MD [address] [place] [address] Referring Physician Urology 09/20/23 Scott Sellers MD [address] [place] [address] Referring Physician Vascular Surgery 09/20/23 documented as of this encounter
--- OUTSIDE RECORDS SUMMARY | 2025-06-12 09:36 | XMS_ITS | CCD ---
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 Name Role Phone JAZMIN MAURO Admitting Unavailable JAZMIN MAURO Consulting Unavailable JAZMIN MAURO Attending Unavailable NIDA SEXTON Primary Care Unavailable TL JORDAN V Consulting Unavailable Carissa Dias Unavailable DO Sharmaine Wong Primary Care Provider [phone] DO Sharmaine Wong Attending Provider [phone] NADER Dias Attending Provider MD Jazmin Mauro Attending Provider SHALONDA Alvarado Attending Provider [phone] DO Sharmaine Wong Primary Care Provider DO Delfino Goncalves Emergency Provider MD Christiano Murillo Attending Provider NADER Dias Attending Provider MD Scott Sellers Attending Provider [phone] Zeus Dolan Unavailable MD Scott Sellers Admit Provider [phone] Scott Sellers Unavailable SHARMAINE WONG Primary Care Physician [phone] DO Sharmaine Wong Primary Care Provider [phone] MD Zeus Dolan Attending Provider NADER Dias Attending Provider DO Sharmaine Wong Primary Care Provider Damian-Bland, DO Sharmaine Attending Provider NADER Dias Attending Provider Damian-Bland DO, Sharmaine D Unavailable Dax De Oliveira MD Unavailable Jazmin Mauro MD Unavailable [phone] Scott Sellers MD Unavailable Damian-Bland DO, Sharmaine D Primary Care Provider SHALONDA JON Attending Unavailab le Damian-Bland, DO Sharmaine Primary Care Provider MD Scott Sellers Attending Provider [phone] MD Meme Montelongo Emergency Provider [phone] DO Domingo Iglesiasistopher Admit Provider [phone] DO Harris Marvin Attending Provider [phone] MD Julian Diaz Other Provider MD Kameron Pires Attending Provider Damian-Bland DO, Sharmaine Primary Care Provider Ambrosio Mcghee DPM Attending Provider [phone] Damian-Bland DO, Sharmaine Primary Care Provider Ambrosio Mcghee DPM Attending Provider [phone] Damian-Bland DO, Sharmaine Attending Provider [phone] Scott Sellers MD Unavailable AMBROSIO MCGHEE Attending Unavailable AMBROSIO MCGHEE Attending Unavailable DAMIAN-SHARMAINE SANCHES Attending Unavailab le DAMIAN-EMERYSHARMAINE Attending Unavailab le DAMIAN-EMERYSHARMAINE Referring Unavailab le DAMIAN-EMERSHARMAINE Laughlin Attending Unavailab le DAMIAN-EMERSHARMAINE Laughlin Attending Unavailab le DAMIAN-EMERY, SHARMAINE D Referring Unavailab le AMBROSIO MCGHEE Attending Unavailable AMBROSIO MCGHEE Attending Unavailable AMBROSIO MCGHEE Attending Unavailable DamianKe MCCARTNEY Sharmaine Primary Care Provider Carissa Trujillo Attending Provider Jasmyn POWER SUPERINTENDENTDelmi Emergency Provider Sharmaine Wong Attending Unavailable Damian-Bennett, Sharmaine Admitting Unavailable Damian-Bland, Sharmaine Primary Care Unavailable Carissa Dias Admitting Unavailable Carissa Dias Attending Unavailable Damian-Bland, Sharmaine Primary Care Unavailable Damian-Bland, Sharmaine Primary Care Unavailable Ambrosio Mcghee Admitting Unavailable Ambrosio Mcghee Attending Unavailable JasmynDelmi Admitting Unavailable JasmynDelmi M Attending Unavailable Damian-Bland, Sharmaine Primary Care Unavailable Damian-Bennett, Sharmaine Primary [...] eight hours as needed for pain HYDROcodone-acetaminophen ([place]) 5-325 MG tablet Indications: Pain Take 1 [...] week and rub some around the urethra., [employer] #14, 157, cm, 03/28/24 11:07:00 EDT, Height/Length Dosing, 68.6, kg, 03/28/24 11:07:00 EDT, Weight Dosing Start Date: 03/28/24 Status: Ordered Start: 12-13-2021 estradiol 0.1 mg/g Vag Crm 1 gram, Vaginal, MonFri, 42.5 gram, Refill(s) 6, Apply 1 gram 2x/ week and rub some around the urethra., [employer] #14, 157, cm, 12/13/21 10:56:00 EST, [...] day at the same time. 0 Active Mrjsvgna-Lxf-Qtwc-Fa-Lut ein (Multivitamin Women 50 Plus) 8 mg iron-400 mcg-300 mcg Tablet (3 sources) Start: 12-14-2022 take 1 tablet by mouth once daily Xmyqsxvq-Tkc-Dknw-Fa-Halima tein (Multivitamin Women 50 Plus) 8 mg iron-400 mcg-300 mcg Tablet Active 1 TAB PO Daily December 14, 2022 1:00am Start: 12-14-2022 take 1 tablet by beverley th once daily Qbqpdhtq-Ajc-Sdkc-Fa-Lutein (Multivitami n Women 50 Plus) 8 mg iron-400 mcg-300 mcg Tablet Active 1 TAB PO Daily December 14, 2022 12:00am Eneykrug-Ykz-Xmkc-Fa-Vit K-L ut (Multivitamin Women 50 Plus) 8 mg iron-400 mcg-300 mcg Tablet (10 sources) Start: 12-14-2022 take 1 tablet by beverley th once daily Start: 12-14-2022 take 1 tablet by beverley th once daily Hfgghiur-Aby-Zowq-Fa-Vit K-Lut (Multivitamin Women 50 Plus) 8 mg iron-400 mcg-300 mcg Tablet Active 1 TAB PO Daily December 14, 2022 1:00am Start: 12-14-2022 take 1 tablet by beverley th once daily Bjfxkcib-Hic-Aexi-Fa-Vit K-Lut (Multivitamin Women 50 Plus) 8 mg [...] BID, # 60 tab(s), Refills(s) 1, Pharmacy: [facility], 157, cm, 12/13/21 10:56:00 EST, Height/Length [...] Translations: [Stage 3a chronic kidney disease (HCC) ([facility]/HCC)] Onset: 06-05-2023 12-01-2023 Chronic Chronic kidney [...] sources) Urine finding 03-28-2023 Unclassified (1 source) Low back pain, unspecified; Translations: [Low back pain, unspecified] Onset: 05-09-2025 Urinary tract infections (20 sources) Chronic cystitis; [...] By: Ata Samuel on 05-09-2025 Study report [facility] [place] [address] XRay Report Signed Patient: Sarah Alfaro MR#: [id number] : 1950 Acct:[id number] Age/Sex: 75 / F ADM Date: 5 Loc: ER Room: Type: [facility] ER Attending Dr: Copies to: Delmi [...] Samuel II, MD 05/09/251707 Signed By: 05/09/251708 [facility] Work Phone: Study report [facility] Main [place] [address] [place] [address] XRay Report Signed Patient: Sarah Alfaro MR#: [id number] : 1950 Acct:[id number] Age/Sex: 75 / F ADM Date: 5 Loc: ER Room: Type: [facility] ER Attending Dr: Copies to: Delmi [...] Samuel II, MD 05/09/251701 Signed By: 05/09/251705 [facility] Work Phone: XR hip LT min 2V(w/wo pelvis )*on 05-09-2025 XR hip LT min 2V(w/wo pelvis)* [facility] Main [address] [address] XRay Report Signed Patient: Sarah Alfaro MR#: [id number] 522 : 1950 Acct:[id number] Age/Sex: 75 / F ADM Date: 05/09/25 Loc: ER Room: Type: [facility] ER Attending Dr: Copies to: Delmi [...] MD 05/09/251707 Signed By: 05/09/251708 Normal [facility] XR lumbar spine min 4V*on XR lumbar spine min 4V* [facility] Main [place] [id number] XRay Report Signed Patient: Sarah Alfaro MR#: [id number] 522 : 1950 Acct:[id number] Age/Sex: 75 / F ADM Date: 05/09/25 Loc: ER Room: Type: [facility] ER Attending Dr: Copies to: Delmi [...] Samuel M.D. 05/09/2025 5:06 PM Dictation Location: [place] [address] Transcribed By: [facility] 05/09/251705 Dictated By: Ata Samuel II, MD 05/09/251701 Signed By: 05/09/251705 Normal [facility] Laboratory - Hematology and Cell countson 05-01-2025 HbA1c (Bld) [Mass fraction] 6.6 % [facility] No Panel Informationon 05-01 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 04/15/2025 11:37 AM Dictation Location: [place] [address] Tech: Sariah Gomez Transcribed By: YADIRA 04/15/25 1137 Dictated By: Scott Sellers MD 04/15/25 1136 Signed By: 04/15/25 1137 Normal [facility] BI MAMMOGRAM SCREENING TOMOS YNTHESIS BILATERALon 12-26-2024 [...] Mammogram ELECTRONICALLY SIGNED BY: Quan Wright M.D. [facility] Radiology Study observation (narrative) [facility] DBT Breast - bilateral scree ningOrdered By: Quan Wright on 12-26-2024 [facility] A1C with Estimated Average G luon 12-25-2024 Glucose [Mass/Vol] 148 mg/dL Normal [facility] Comment on above: Result Comment: PERF ORMED BY: [place] [address] PATHOLOGIST [employer] RAILS DEVELOPER HERNESTO SIMENTAL M.D. Performed By: #### A 1C [facility] eA #### [address] HbA1c (Bld) [Mass fraction] 6.8 % High 4.3-5.6 [facility] Comment on above: Result Comment: Incr eased risk for diabetes: 5.7 - 6.4 diabetes: >6.4 glycemic control for adults with diabetes: <7.0 Performed By: #### A 1C [facility] eA #### [facility] [address] [place] [id number] [facility] Alanine aminotransferase [En zymatic activity/volume] in Serum or PlasmaOrdered By: Sharmaine Wong on 12-25-2024 ALT [Catalytic activity/Vol] Alanine aminotransferase [Enzymatic activity/volume] in Serum or Plasma 7-52 [facility] Albumin [Mass/volume] in Ser um or Plasma by Bromocresol green (BCG) dye binding methoOrdered By: Sharmaine Wong on 12-25-2024 Albumin BCG dye [Mass/Vol] Albumin [Mass/volume] in Serum or Plasma by Bromocresol green (BCG) dye binding metho 3.5-5.7 [facility] Alkaline phosphatase [Enzyma tic activity/volume] in Serum or PlasmaOrdered By: Sharmaine Wong on 12-25-2024 ALP [Catalytic activity/Vol] Alkaline phosphatase [Enzymatic activity/volume] in Serum or Plasma 34-104 [facility] Aspartate aminotransferase [ Enzymatic activity/volume] in Serum or PlasmaOrdered By: Sharmaine Wong on 12-25-2024 AST [Catalytic activity/Vol] Aspartate aminotransferase [Enzymatic activity/volume] in Serum or Plasma 13-39 [facility] Bilirubin.direct [Mass/volum e] in Serum or PlasmaOrdered By: Sharmaine Wong on 12-25-2024 Bilirubin.direct [Mass/Vol] Bilirubin.direct [Mass/volume] in Serum or Plasma High 0.03-0.18 [facility] Bilirubin.total [Mass/volume ] in Serum or PlasmaOrdered By: Sharmaine Wong on 12-25-2024 Bilirubin [Mass/Vol] Bilirubin.total [Mass/volume] in Serum or Plasma High 0.3-1.0 [facility] Comment on above: Samples from patient s who have taken Naproxen have shown spurious elevation in Total Bilirubin levels. A metabolite of Naproxen, O-desmethylnaproxen, has been shown to interfere with the Arvin-Samantha method for measuring Total Bilirubin. Cholesterol [Mass/volume] in Serum or PlasmaOrdered By: Sharmaine Wong on 12-25-2024 Cholesterol [Mass/Vol] Cholesterol [Mass /volume] in Serum or Plasma 140-200 [facility] Comment on above: Chol less than 200 m g/dl low riskChol 201-239 mg/dl borderline riskChol 240 mg/dl and greater high risk Cholesterol in HDL [Mass/vol ume] in Serum or PlasmaOrdered By: Sharmaine Sanches on 12-25-2024 Cholesterol in HDL [Mass/Vol] Serum or plasma high density lipoprotein (HDL) cholesterol measurement 23- [facility] Comment on above: HDL CHOL ATP-III CLA SSIFICATION Cardiovascular RiskHDL > or equal to 60 mg/dL LOWHDL < 40 mg/dL HIGH Cholesterol in LDL Calc [Mas s/Vol]Ordered By: Sharmaine Wong on 12-25-2024 Cholesterol in LDL [Mass/Vol] Cholesterol in LDL [Mass/volume] in Serum or Plasma by calculation 0-100 [facility] Comment on above: LDL ATP III CLASSIFI CATIONLDL less than 100 mg/dL OptimalLDL 100-129 mg/dL Near or above optimalLDL 130-159 mg/dL Borderline highLDL 160-189 mg/dL HighLDL greater than 189 mg/dL Very high Cholesterol in VLDL Calc [Ma ss/Vol]Ordered By: Sharmaine Wong on 12-25-2024 Cholesterol in VLDL [Mass/Vol] Cholesterol in VLDL [Mass/volume] in Serum or Plasma by calculation [facility] Creatinine [Mass/volume] in UrineOrdered By: Sharmaine Wong on 12-25-2024 Creatinine (U) [Mass/Vol] Creatinine [Mass/volume] in Urine [facility] Comment on above: No reference range e stablished Globulin Calc (S) [Mass/Vol] Ordered By: Sharmaine Wong on 12-25-2024 Globulin (S) [Mass/Vol] Serum globulin measurement by calculation (mass/volume) [facility] Hepatic Panelon 12-25-2024 Albumin [Mass/Vol] 4.3 g/dL Normal 3.5-5.7 [facility] Comment on above: Order Comment: ELAINE ROMANW Performed By: #### H EPATIC, LIPID #### [address] Albumin/Globulin [Mass ratio] 1.8 {ratio} Normal [facility] Comment on above: Order Comment: [email or web address] Performed By: #### H EPATIC, LIPID #### [address] ALP [Catalytic activity/Vol] 72 U/L Normal 34-104 [facility] Comment on above: Order Comment: [email or web address] Performed By: #### H EPATIC, LIPID #### [facility] [address] ALT [Catalytic activity/Vol] 20 U/L Normal 7-52 [facility] Comment on above: Order Comment: [email or web address] Performed By: #### H EPATIC, LIPID #### [address] AST [Catalytic activity/Vol] 19 U/L Normal 13-39 [facility] Comment on above: Order Comment: [email or web address] Performed By: #### H EPATIC, LIPID #### [address] Bilirubin [Mass/Vol] 1.3 mg/dL High 0.3-1.0 [facility] Comment on above: Order Comment: [email or web address] Result Comment: Samp les from patients who have taken Naproxen have shown spurious elevation in Total Bilirubin levels. A metabolite of Naproxen, O-desmethylnaproxen, has been shown to interfere with the Jendrassik-Grof method for measuring Total Bilirubin. Performed By: #### H EPATIC, LIPID #### [place] [address] [place] Bilirubin,Indirect 1.1 mg/dL Normal [facility] Comment on above: Order Comment: [email or web address] Performed By: #### H EPATIC, LIPID #### [address] Bilirubin.indirect [Mass/Vol] 0.20 mg/dL High 0.03-0.18 [facility] Comment on above: Order Comment: [email or web address] Performed By: #### H EPATIC, LIPID #### [address] Globulin (S) [Mass/Vol] 2.4 g/dL Normal [facility] Comment on above: Order Comment: [email or web address] Performed By: #### H EPATIC, LIPID #### [address] Protein [Mass/Vol] 6.7 g/dL Normal 6.4-8.9 [facility] Comment on above: Order Comment: [email or web address] Performed By: #### H EPATIC, LIPID #### [address] Lipid Panelon 12-25-2024 Cholesterol [Mass/Vol] 164 mg/dL Normal 140-200 [facility] Comment on above: Order Comment: [email or web address] Result Comment: Chol less than 200 mg/dl low risk Chol 201-239 mg/dl borderline risk Chol 240 mg/dl and greater high risk Performed By: #### H EPATIC, LIPID #### [address] Cholesterol in HDL [Mass/Vol] 60 mg/dL Normal 23-92 [facility] Comment on above: Order Comment: [email or web address] Result Comment: HDL CHOL ATP-III CLASSIFICATION Cardiovascular Risk HDL > or equal to 60 mg/dL LOW HDL < 40 mg/dL HIGH Performed By: #### H EPATIC, LIPID #### [address] Cholesterol.total/Chol esterol in HDL [Mass ratio] 2.7 {ratio} Normal <5.0 [facility] Comment on above: Order Comment: [email or web address] Result Comment: PERF ORMED BY: [place] [address] PATHOLOGIST [employer]ILS DEVELOPER HERNESTO SIMENTAL M.D. Performed By: #### H EPATIC, LIPID #### [address] LDL Cholesterol,Calculated 64 mg/dL Normal 0-100 [facility] Comment on above: Order Comment: ELAINE WALTERS Result Comment: LDL ATP III CLASSIFICATION LDL less than 100 mg/dL Optimal LDL 100-129 mg/dL Near or above optimal LDL 130-159 mg/dL Borderline high LDL 160-189 mg/dL High LDL greater than 189 mg/dL Very high Performed By: #### H EPATIC, LIPID #### [address] Triglyceride w/Reflex 201 mg/dL High 0-149 [facility] Comment on above: Order Comment: ELAINE WALTERS Result Comment: TRIG ATP III CLASSIFICATION TRIG less than 150 mg/dL Normal TRIG 150-199 mg/dL Borderline high TRIG 200-500 mg/dL High TRIG greater than 500 mg/dL Very high Standard traceable to the Center for Disease Conrtrol and Prevention (CDC) test method. Performed By: #### H EPATIC, LIPID #### [address] VLDL CHOLESTEROL 40 mg/dL Normal [facility] Comment on above: Order Comment: ELAINE WALTERS Performed By: #### H EPATIC, LIPID #### [address] MicroAlb Creat Ratio,Uon Albumin DL <= 20 mg/L (U) [Mass/Vol] mg/dL Normal 0.0-1.8 [facility] Comment on above: Performed By: #### U RMACRERAT #### [address] Creatinine, Urine (Random) 46.00 mg/dL Normal [facility] Comment on above: Result Comment: No r eference range established Performed By: #### U RMACRERAT #### [address] Microalbumin/Creatinin e Ratio Not performed Normal 0.0-30.0 [facility] Comment on above: Result Comment: PERF ORMED BY: [place] [address] PATHOLOGIST [employer]ILS DEVELOPER HERNESTO SIMENTAL M.D. Performed By: #### U RMACRERAT #### [facility] [address] Microalbumin [Mass/volume] i n UrineOrdered By: Sharmaine Wong on 12-25-2024 Albumin DL <= 20 mg/L (U) [Mass/Vol] Microalbumin [Mass/volume] in Urine 0.0-1.8 [facility] Protein [Mass/volume] in Ser um or PlasmaOrdered By: Sharmaine Wong on 12-25-2024 Protein [Mass/Vol] Protein [Mass/volume ] in Serum or Plasma 6.4-8.9 [facility] Serum or plasma albumin/glob ulin mass ratioOrdered By: Sharmaine Wong on 12-25-2024 Albumin/Globulin [Mass ratio] Serum or plasma albumin/globulin mass ratio [facility] Serum or plasma non-glucuron idated bilirubin measurement (mass/volume)Ordered By: Sharmaine Wong on 12-25-2024 Bilirubin.indirect [Mass/Vol] Serum or plasma non-glucuronidated bilirubin measurement (mass/volume) [facility] Serum or plasma total choles terol/high density lipoprotein (HDL) cholesterol mass ratOrdered By: Sharmaine Wong on 12-25-2024 Cholesterol.total/Chol esterol in HDL [Mass ratio] Serum or plasma total cholesterol/high density lipoprotein (HDL) cholesterol mass rat <5.0 [facility] Triglyceride [Mass/volume] i n Serum or PlasmaOrdered By: Sharmaine Wong on 12-25-2024 Triglyceride [Mass/Vol] Triglyceride [Mass/volume] in Serum or Plasma High 0-149 [facility] Comment on above: TRIG ATP III CLASSIF ICATIONTRIG less than 150 mg/dL NormalTRIG 150-199 mg/dL Borderline highTRIG 200-500 mg/dL High TRIG greater than 500 mg/dL Very highStandard traceable to the Center for Disease Conrtrol and Prevention (CDC) test method. Urine microalbumin/creatinin e mass ratioOrdered By: Sharmaine Wong on 12-25-2024 Albumin/Creatinine DL <= 20 mg/L (U) [Mass ratio] Urine microalbumin/creatinine mass ratio [facility] Comment on above: Test not performed ECG 12 lead ECGon 11-08-2024 ECG 12 lead ECG [facility] Main [place] [address] [place] [address] Electrocardiograph Report Signed Patient: Sarah Alfaro MR#: [id number] 522 : 1950 Acct:[id number] Age/Sex: 74 / F ADM Date: 11/08/24 Loc: Room: Type: [facility] Attending Dr: Ambrosio Mcghee DPM Ordering Provider: [...] in Anterior leads Confirmed by SIMRAN URBINA [facility] ([id number][facility] on 11/09/2024 12:50:45 PM Referred By: Electronically Signed By: CARIDAD KHALIL MD FAC Transcribed By: MUS Signed By Caridad Khalil MD, FACC 11/09/24 1250 Normal [facility] Basic Metabolic Panelon 10-23 Anion gap [Moles/Vol] 9.1 mmol/L Normal 6.0-15.0 [facility] Comment on above: Performed By: #### B MP, CBC #### [place] [address] [place] Calcium [Mass/Vol] 9.3 mg/dL Normal 8.6-10.3 [facility] Comment on above: Result Comment: PERF ORMED BY: [place] [address] PATHOLOGIST [employer]IL[employer] DEVELOPER HERNESTO SIMENTAL M.D. Performed By: #### B MP, CBC #### [facility] [address] [place] [address] [place] Chloride [Moles/Vol] 104 mmol/L Normal 98-107 [facility] Comment on above: Performed By: #### B MP, CBC #### [facility] [address] [place] [address] [place] CO2 [Moles/Vol] 31.4 mmol/L High 21.0-31.0 [facility] Comment on above: Performed By: #### B MP, CBC #### [address] Creatinine [Mass/Vol] 1.02 mg/dL Normal 0.60-1.20 [facility] Comment on above: Performed By: #### B MP, CBC #### [address] Estimated GFR 58.451 mL/Min Normal [facility] Comment on above: Performed By: #### B MP, CBC #### [address] Glucose [Mass/Vol] 86 mg/dL Normal 70-100 [facility] Comment on above: Result Comment: [place] Glucose Reference Range is dependent on time and content of last meal. Glucose of more than 200 mg/dL in a nonstressed, ambulatory subject supports the diagnosis of Diabetes Mellitus. ADA recommended reference range Performed By: #### B MP, CBC #### [place] [address] [place] Potassium [Moles/Vol] 4.5 mmol/L Normal 3.5-5.1 [facility] Comment on above: Performed By: #### B MP, CBC #### [place] [address] [place] Sodium [Moles/Vol] 140 mmol/L Normal 136-145 [facility] Comment on above: Performed By: #### B MP, CBC #### [place] [address] [place] Urea nitrogen [Mass/Vol] 21 mg/dL Normal 7-25 [facility] Comment on above: Performed By: #### B MP, CBC #### [facility] [address] Basic metabolic 1998 panelon 11-04-2024 Anion gap [Moles/Vol] 9.1 mmol/L 6.0 - 15.0 meq/L [facility] Calcium [Mass/Vol] 9.3 mg/dL 8.6 - 10. 3 mg/dL [facility] Chloride [Moles/Vol] 104 mmol/L 98 - 10 7 mmol/L [facility] CO2 [Moles/Vol] 31.4 mmol/L High 21.0 - 31.0 mmol/L [facility] Creatinine (U) [Mass/Vol] 1.02 mg/dL 0.60 - 1.20 mg/dL [facility] GFR/1.73 sq M.predicted MDRD (S/P/Bld) [Vol rate/Area] 58.451 mL/min/{1.73_m2} mL/Min [facility] Glucose [Mass/Vol] 86 mg/dL 70 - 100 mg/dL [facility] Comment on above: Random Glucose Refer ence Range is dependent on time and content of last meal. Glucose of more than 200 mg/dL in a nonstressed, ambulatory subject supports the diagnosis of Diabetes Mellitus. ADA recommended reference range Interpretation and review of laboratory results Abnormal [facility] Potassium [Moles/Vol] 4.5 mmol/L 3.5 - 5.1 mmol/L [facility] Sodium [Moles/Vol] 140 mmol/L 136 - 145 mmol/L [facility] Urea nitrogen [Mass/Vol] 21 mg/dL 7 - 25 mg/dL [facility] Basophils Auto (Bld) [#/Vol] Ordered By: Ambrosio Mcghee on 11-04-2024 Basophils (Bld) [#/Vol] Automated basophil count 0.0-0.2 [facility] Basophils/100 WBC Auto (Bld) Ordered By: Ambrosio Mcghee on 11-04-2024 Basophils/100 WBC (Bld) Automated basophil % . [facility] CBC W Auto Differential pane l (Bld)on 11-04-2024 Basophils (Bld) [#/Vol] 0.1 10*3/uL 0.0 - 0.2 10*3/uL [facility] Basophils/100 WBC Manual cnt (Syn fld) 1.2 % . [facility] Eosinophils (Bld) [#/Vol] 0.3 10*3/uL 0.0 - 0.45 10*3/uL [facility] Eosinophils/100 WBC Manual cnt (Syn fld) 3.6 % . [facility] Erythrocyte distribution width (RBC) [Ratio] 13.4 % 11.9 - 15.3 % [facility] [facility] Hematocrit (Bld) [Volume fraction] 42 % 34.0 - 46.4 % [facility] Hemoglobin (Bld) [Mass/Vol] 14.2 g/dL 11.8 - 15.4 g/dL [facility] Lymphocytes (Bld) [#/Vol] 2 10*3/uL 1.00 - 4.8 10*3/uL [facility] Lymphocytes/100 WBC Manual cnt (Syn fld) 24.4 % . [facility] MCH (RBC) [Entitic mass] 32 pg 24.7 - 34.[address] [facility] MCHC (RBC) [Mass/Vol] 33.8 g/dL 32.0 - 35.0 g/dL [facility] MCV (RBC) [Entitic vol] 94.8 fL 80 - [address] [facility] Monocytes (Bld) [#/Vol] 0.8 10*3/uL 0.0 - 0.8 10*3/uL [facility] Monocytes+Macrophages/ 100 WBC Manual cnt (Syn fld) 9.4 % . [facility] Neutrophils (Bld) [#/Vol] 5.1 10*3/uL 1.8 - 7.7 10*3/uL [facility] Neutrophils/100 WBC Manual cnt (Syn fld) 61.4 % . [facility] NRBC 0.1 /100{WBC} 0 - 0.5 /100{WBC} [facility] Platelet mean volume (Bld) [Entitic vol] 9.5 fL 6.3 - 10.[address] [facility] Platelets (Bld) [#/Vol] 253 10*3/uL 150 - 450 10*3/uL [facility] RBC LM.HPF (Urine sed) [#/Area] 4.43 10*6/uL 3.60 - 5.00 10*6/uL [facility] WBC (Bld) [#/Vol] 8.4 10*3/uL 3.8 - 11.6 10*3/uL [facility] WBC LM.HPF (Urine sed) [#/Area] 8.4 10*3/uL 3.8 - 11.6 10*3/uL [facility] Calcium [Mass/volume] in Ser um or PlasmaOrdered By: Ambrosio Mcghee on 11-04-2024 Calcium [Mass/Vol] Calcium [Mass/volume ] in Serum or Plasma 8.6-10.3 [facility] Carbon dioxide, total [Moles /volume] in Serum or PlasmaOrdered By: Ambrosio Mcghee on 11-04-2024 CO2 [Moles/Vol] Carbon dioxide, tota l [Moles/volume] in Serum or Plasma High 21.0-31.0 [facility] Chloride [Moles/volume] in S carlos or PlasmaOrdered By: Ambrosio Mcghee on 11-04-2024 Chloride [Moles/Vol] Chloride [Moles/vol ume] in Serum or Plasma 98-107 [facility] Complete Blood Count Auto Di ffon 11-04-2024 Basophils (Bld) [#/Vol] 0.1 10*3/uL Normal 0.0-0.2 [facility] Comment on above: Result Comment: PERF ORMED BY: [place] [address] PATHOLOGIST [employer] HERNESTO SIMENTAL M.D. Performed By: #### B MP, CBC #### [facility] [address] [place] [address] [place] Basophils/100 WBC (Bld) 1.2 % Normal . [facility] Comment on above: Performed By: #### B MP, CBC #### [facility] [address] [place] [address] [place] Eosinophils (Bld) [#/Vol] 0.3 10*3/uL Normal 0.0-0.45 [facility] Comment on above: Performed By: #### B MP, CBC #### [facility] [address] [place] [address] [place] Eosinophils/100 WBC (Bld) 3.6 % Normal . [facility] Comment on above: Performed By: #### B MP, CBC #### [address] Erythrocyte distribution width (RBC) [Ratio] 13.4 % Normal 11.9-15.3 [facility] Comment on above: Performed By: #### B MP, CBC #### [address] Hematocrit (Bld) [Volume fraction] 42.0 % Normal 34.0-46.4 [facility] Comment on above: Performed By: #### B MP, CBC #### [address] Hemoglobin (Bld) [Mass/Vol] 14.2 g/dL Normal 11.8-15.4 [facility] Comment on above: Performed By: #### B MP, CBC #### [address] Lymphocytes (Bld) [#/Vol] 2.0 10*3/uL Normal 1.00-4.8 [facility] Comment on above: Performed By: #### B MP, CBC #### [place] [address] [place] Lymphocytes/100 WBC (Bld) 24.4 % Normal . [facility] Comment on above: Performed By: #### B MP, CBC #### [address] MCH (RBC) [Entitic mass] 32.0 pg Normal 24.7-34.3 [facility] Comment on above: Performed By: #### B MP, CBC #### [address] MCV (RBC) [Entitic vol] 94.8 fL Normal 80-100 [facility] Comment on above: Performed By: #### B MP, CBC #### [address] Mean Corpuscular HGB Conc 33.8 g/dL Normal 32.0-35.0 [facility] Comment on above: Performed By: #### B MP, CBC #### [facility] [address] [place] [address] [place] Monocytes (Bld) [#/Vol] 0.8 10*3/uL Normal 0.0-0.8 [facility] Comment on above: Performed By: #### B MP, CBC #### [place] [address] [place] Monocytes/100 WBC (Bld) 9.4 % Normal . [facility] Comment on above: Performed By: #### B MP, CBC #### [place] [address] [place] Neutrophils (Bld) [#/Vol] 5.1 10*3/uL Normal 1.8-7.7 [facility] Comment on above: Performed By: #### B MP, CBC #### [address] Neutrophils/100 WBC (Bld) 61.4 % Normal . [facility] Comment on above: Performed By: #### B MP, CBC #### [place] [address] [place] NRBC% 0.1 /100{WBC} Normal 0-0.5 [facility] Comment on above: Performed By: #### B MP, CBC #### [place] [address] [place] Platelet mean volume (Bld) [Entitic vol] 9.5 fL Normal 6.3-10.7 [facility] Comment on above: Performed By: #### B MP, CBC #### [place] [address] [place] Platelets (Bld) [#/Vol] 253 10*3/uL Normal 150-450 [facility] Comment on above: Performed By: #### B MP, CBC #### [place] [address] [place] RBC (Bld) [#/Vol] 4.43 10*6/uL Normal 3.60-5.00 [facility] Comment on above: Performed By: #### B MP, CBC #### [facility] [address] [place] [address] [place] WBC (Bld) [#/Vol] 8.4 10*3/uL Normal 3.8-11.6 [facility] Comment on above: Performed By: #### B MP, CBC #### [facility] [address] Creatinine [Mass/volume] in Serum or PlasmaOrdered By: Ambrosio Mcghee on 11-04-2024 Creatinine [Mass/Vol] Creatinine [Mass/v olume] in Serum or Plasma 0.60-1.20 [facility] Eosinophils Auto (Bld) [#/Vo l]Ordered By: Ambrosio Mcghee on 11-04-2024 Eosinophils (Bld) [#/Vol] Automated eosinophil count 0.0-0.45 [facility] Eosinophils/100 WBC Auto (Bl d)Ordered By: Ambrosio Mcghee on 11-04-2024 Eosinophils/100 WBC (Bld) Automated eosinophil % . [facility] Erythrocyte distribution wid th Auto (RBC) [Ratio]Ordered By: Ambrosio Mcghee on 11-04-2024 Erythrocyte distribution width (RBC) [Ratio] Erythrocyte distribution width [Ratio] by Automated count 11.9-15.3 [facility] Glucose [Mass/volume] in Ser um or PlasmaOrdered By: Ambrosio Mcghee on 11-04-2024 Glucose [Mass/Vol] Glucose [Mass/volume ] in Serum or Plasma 70-100 [facility] Comment on above: ADA recommended refe rence rangeRandom Glucose Reference Range is dependent on time and content of last meal. Glucose of more than 200 mg/dL in a nonstressed, ambulatory subject supports the diagnosis of Diabetes Mellitus. Hematocrit Auto (Bld) [Volum e fraction]Ordered By: Ambrosio Mcghee on 11-04-2024 Hematocrit (Bld) [Volume fraction] Hematocrit [Volume Fraction] of Blood by Automated count 34.0-46.4 [facility] Hemoglobin [Mass/volume] in BloodOrdered By: Ambrosio Mcghee on 11-04-2024 Hemoglobin (Bld) [Mass/Vol] Hemoglobin [Mass/volume] in Blood 11.8-15.4 [facility] Leukocytes [#/volume] correc alondra for nucleated erythrocytes in Blood by Automated counOrdered By: Ambrosio Mcghee on 11-04-2024 WBC corrected for nucl RBC Auto (Bld) [#/Vol] Leukocytes [#/volume] corrected for nucleated erythrocytes in Blood by Automated coun 3.8-11.6 [facility] Lymphocytes Auto (Bld) [#/Vo l]Ordered By: Ambrosio Mcghee on 11-04-2024 Lymphocytes (Bld) [#/Vol] Lymphocytes [#/volume] in Blood by Automated count 1.00-4.8 [facility] Lymphocytes/100 WBC Auto (Bl d)Ordered By: Ambrosio Mcghee on 11-04-2024 Lymphocytes/100 WBC (Bld) Lymphocytes/100 leukocytes in Blood by Automated count . [facility] MCH Auto (RBC) [Entitic mass ]Ordered By: Ambrosio Mcghee on 11-04-2024 MCH (RBC) [Entitic mass] MCH [Entitic mass] by Automated count 24.7-34.3 [facility] MCHC Auto (RBC) [Mass/Vol]Or dered By: Ambrosio Mcghee on 11-04-2024 MCHC (RBC) [Mass/Vol] MCHC [Mass/volume] by Automated count 32.0-35.0 [facility] MCV Auto (RBC) [Entitic vol] Ordered By: Ambrosio Mcghee on 11-04-2024 MCV (RBC) [Entitic vol] MCV [Entitic volume] by Automated count 80-100 [facility] Monocytes Auto (Bld) [#/Vol] Ordered By: Ambrosio Mcghee on 11-04-2024 Monocytes (Bld) [#/Vol] Automated blood monocyte count 0.0-0.8 [facility] Monocytes/100 WBC Auto (Bld) Ordered By: Ambrosio Mcghee on 11-04-2024 Monocytes/100 WBC (Bld) Automated monocyte % . [facility] Neutrophils Auto (Bld) [#/Vo l]Ordered By: Ambrosio Mcghee on 11-04-2024 Neutrophils (Bld) [#/Vol] Neutrophils [#/volume] in Blood by Automated count 1.8-7.7 [facility] Neutrophils/100 WBC Auto (Bl d)Ordered By: Ambrosio Mcghee on 11-04-2024 Neutrophils/100 WBC (Bld) Automated neutrophil % . [facility] No Panel InformationOrdered By: Ambrosio Mcghee on 11-04-2024 Estimated GFR (CKD-EPI) 58.451 mL/Min [facility] Creatinine Clearance (Chem N/A [facility] Nucleated erythrocytes [Pres ence] in Blood by Automated countOrdered By: Ambrosio Mcghee on 11-04-2024 Nucleated RBC Auto Ql (Bld) Nucleated erythrocytes [Presence] in Blood by Automated count 0-0.5 [facility] Platelet mean volume Auto (B ld) [Entitic vol]Ordered By: Ambrosio Mcghee on 11-04-2024 Platelet mean volume (Bld) [Entitic vol] Platelet mean volume [Entitic volume] in Blood by Automated count 6.3-10.7 [facility] Platelets Auto (Bld) [#/Vol] Ordered By: Ambrosio Mcghee on 11-04-2024 Platelets (Bld) [#/Vol] Platelets [#/volume] in Blood by Automated count 150-450 [facility] Potassium [Moles/volume] in Serum or PlasmaOrdered By: Ambrosio Mcghee on 11-04-2024 Potassium [Moles/Vol] Potassium [Moles/v olume] in Serum or Plasma 3.5-5.1 [facility] RBC Auto (Bld) [#/Vol]Ordere d By: Ambrosio Mcghee on 11-04-2024 RBC (Bld) [#/Vol] Erythrocytes [#/volu me] in Blood by Automated count 3.60-5.00 [facility] Serum or plasma anion gap de terminationOrdered By: Ambrosio cMghee on 11-04-2024 Anion gap [Moles/Vol] Serum or plasma an ion gap determination 6.0-15.0 [facility] Sodium [Moles/volume] in Ser um or PlasmaOrdered By: Ambrosio Mcghee on 11-04-2024 Sodium [Moles/Vol] Sodium [Moles/volume ] in Serum or Plasma 136-145 [facility] Urea nitrogen [Mass/volume] in Serum or PlasmaOrdered By: Ambrosio Mcghee on 11-04-2024 Urea nitrogen [Mass/Vol] Urea nitrogen [Mass/volume] in Serum or Plasma 7- [facility] WBC Auto (Bld) [#/Vol]Ordere d By: Ambrosio Mcghee on 11-04-2024 WBC (Bld) [#/Vol] Leukocytes [#/volume ] in Blood by Automated count 3.8-11.6 [facility] Laboratory - Hematology and Cell countson 08-30-2024 HbA1c (Bld) [Mass fraction] 6.2 % [facility] No Panel Informationon 08-30 [facility] Basophils Auto (Bld) [#/Vol] Ordered By: Marvin Iglesias on 05-05-2024 Basophils (Bld) [#/Vol] 0.1 10*3/uL 0.0-0.2 [facility] Basophils/100 WBC Auto (Bld) Ordered By: Marvin Iglesias on 05-05-2024 Basophils/100 WBC (Bld) 0.8 % . [facility] Calcium [Mass/volume] in Ser um or PlasmaOrdered By: Marvin Iglesias on 05-05-2024 Calcium [Mass/Vol] 8.6 mg/dL 8.6-10.3 [facility] Carbon dioxide, total [Moles /volume] in Serum or PlasmaOrdered By: Marvin Iglesias on 05-05-2024 CO2 [Moles/Vol] 27.8 mmol/L 21.0-31.0 [facility] Chloride [Moles/volume] in S carlos or PlasmaOrdered By: Marvin Iglesias on 05-05-2024 Chloride [Moles/Vol] 104 mmol/L 98-107 [facility] Cholesterol [Mass/volume] in Serum or PlasmaOrdered By: Marvin Iglesias on 05-05-2024 Cholesterol [Mass/Vol] 162 mg/dL 140-200 [facility] Comment on above: Chol less than 200 m g/dl low riskChol 201-239 mg/dl borderline riskChol 240 mg/dl and greater high risk Cholesterol in LDL Calc [Mas s/Vol]Ordered By: Marvin Iglesias on 05-05-2024 Cholesterol in LDL [Mass/Vol] 64 mg/dL 0-100 [facility] Comment on above: LDL ATP III CLASSIFI CATIONLDL less than 100 mg/dL OptimalLDL 100-129 mg/dL Near or above optimalLDL 130-159 mg/dL Borderline highLDL 160-189 mg/dL HighLDL greater than 189 mg/dL Very high Cholesterol in VLDL Calc [Ma ss/Vol]Ordered By: Marvin Iglesias on 05-05-2024 Cholesterol in VLDL [Mass/Vol] 33 mg/dL [facility] Creatinine [Mass/volume] in Serum or PlasmaOrdered By: Marvin Iglesias on 05-05-2024 Creatinine [Mass/Vol] 0.86 mg/dL 0.60-1.20 [facility] Eosinophils Auto (Bld) [#/Vo l]Ordered By: Marvin Iglesias on 05-05-2024 Eosinophils (Bld) [#/Vol] 0.2 10*3/uL 0.0-0.45 [facility] Eosinophils/100 WBC Auto (Bl d)Ordered By: Marvin Iglesias on 05-05-2024 Eosinophils/100 WBC (Bld) 1.4 % . [facility] Erythrocyte distribution wid th Auto (RBC) [Ratio]Ordered By: Marvin Iglesias on 05-05-2024 Erythrocyte distribution width (RBC) [Ratio] 12.9 % 11.9-15.3 [facility] Glucose [Mass/volume] in Ser um or PlasmaOrdered By: Marvin Iglesias on 05-05-2024 Glucose [Mass/Vol] 95 mg/dL 70-100 [facility] Comment on above: ADA recommended refe [...] from glycated hemoglobin (Bld) [Mass/Vol] 137 mg/dL [facility] Hematocrit Auto (Bld) [Volum e fraction]Ordered By: Marvin Iglesias on 05-05-2024 Hematocrit (Bld) [Volume fraction] 42.0 % 34.0-46.4 [facility] Hemoglobin A1c percentageOrd ered By: Marvin Iglesias on 05-05-2024 HbA1c (Bld) [Mass fraction] 6.4 % High 4.3-5.6 [facility] Comment on above: Increased risk for d iabetes: 5.7 - 6.4diabetes: >6.4glycemic control for adults with diabetes: <7.0 Hemoglobin [Mass/volume] in BloodOrdered By: Marvin Iglesias on 05-05-2024 Hemoglobin (Bld) [Mass/Vol] 14.3 g/dL 11.8-15.4 [facility] Leukocytes [#/volume] correc alondra for nucleated erythrocytes in Blood by Automated counOrdered By: Marvin Iglesias on 05-05-2024 WBC corrected for nucl RBC Auto (Bld) [#/Vol] 13.7 10*3/uL High 3.8-11.6 [facility] Lymphocytes Auto (Bld) [#/Vo l]Ordered By: Marvin Iglesias on 05-05-2024 Lymphocytes (Bld) [#/Vol] 2.7 10*3/uL 1.00-4.8 [facility] Lymphocytes/100 WBC Auto (Bl d)Ordered By: Marvin Iglesias on 05-05-2024 Lymphocytes/100 WBC (Bld) 19.5 % . [facility] MCH Auto (RBC) [Entitic mass ]Ordered By: Marvin Iglesias on 05-05-2024 MCH (RBC) [Entitic mass] 32.2 pg 24.7-34.3 [facility] MCHC Auto (RBC) [Mass/Vol]Or dered By: Marvin Iglesias on 05-05-2024 MCHC (RBC) [Mass/Vol] 34.1 g/dL 32.0-35.0 [facility] MCV Auto (RBC) [Entitic vol] Ordered By: Marvin Iglesias on 05-05-2024 MCV (RBC) [Entitic vol] 94.3 fL 80-100 [facility] Monocytes Auto (Bld) [#/Vol] Ordered By: Marvin Iglesias on 05-05-2024 Monocytes (Bld) [#/Vol] 0.8 10*3/uL 0.0-0.8 [facility] Monocytes/100 WBC Auto (Bld) Ordered By: Marvin Iglesias on 05-05-2024 Monocytes/100 WBC (Bld) 5.9 % . [facility] Neutrophils Auto (Bld) [#/Vo l]Ordered By: Marvin Iglesias on 05-05-2024 Neutrophils (Bld) [#/Vol] 9.9 10*3/uL High 1.8-7.7 [facility] Neutrophils/100 WBC Auto (Bl d)Ordered By: Marvin Iglesias on 05-05-2024 Neutrophils/100 WBC (Bld) 72.4 % . [facility] No Panel InformationOrdered By: Marvin Iglesias on 05-05-2024 Estimated GFR (CKD-EPI) > 60.0 mL/Min [facility] Creatinine Clearance (Chem 54.46 [facility] Nucleated erythrocytes [Pres ence] in Blood by Automated countOrdered By: Marvin Iglesias on 05-05-2024 Nucleated RBC Auto Ql (Bld) 0.0 /100{WBC} 0-0.5 [facility] Platelet mean volume Auto (B ld) [Entitic vol]Ordered By: Marvin Iglesias on 05-05-2024 Platelet mean volume (Bld) [Entitic vol] 8.4 fL 6.3-10.7 [facility] Platelets Auto (Bld) [#/Vol] Ordered By: Marvin Iglesias on 05-05-2024 Platelets (Bld) [#/Vol] 221 10*3/uL 150-450 [facility] Potassium [Moles/volume] in Serum or PlasmaOrdered By: Marvin Iglesias on 05-05-2024 Potassium [Moles/Vol] 4.0 mmol/L 3.5-5.1 [facility] RBC Auto (Bld) [#/Vol]Ordere d By: Marvin Iglesias on 05-05-2024 RBC (Bld) [#/Vol] 4.45 10*6/uL 3.60-5.00 [facility] Serum or plasma anion gap de terminationOrdered By: Marvin Iglesias on 05-05-2024 Anion gap [Moles/Vol] 11.2 mmol/L 6.0-15.0 [facility] Serum or plasma high density lipoprotein (HDL) cholesterol measurementOrdered By: Marvin Iglesias on 05-05-2024 Cholesterol in HDL [Mass/Vol] 65 mg/dL 23-92 [facility] Comment on above: HDL CHOL ATP-III CLA SSIFICATION Cardiovascular RiskHDL > or equal to 60 mg/dL LOWHDL < 40 mg/dL HIGH Serum or plasma total choles terol/high density lipoprotein (HDL) cholesterol mass ratOrdered By: Marvin Iglesias on 05-05-2024 Cholesterol.total/Chol esterol in HDL [Mass ratio] 2.5 {ratio} <5.0 [facility] Sodium [Moles/volume] in Ser um or PlasmaOrdered By: Marvin Iglesias on 05-05-2024 Sodium [Moles/Vol] 139 mmol/L 136-145 [facility] Triglyceride [Mass/volume] i n Serum or PlasmaOrdered By: Marvin Iglesias on 05-05-2024 Triglyceride [Mass/Vol] 165 mg/dL High 0-149 [facility] Comment on above: TRIG ATP III CLASSIF ICATIONTRIG less than 150 mg/dL NormalTRIG 150-199 mg/dL Borderline highTRIG 200-500 mg/dL High TRIG greater than 500 mg/dL Very highStandard traceable to the Center for Disease Conrtrol and Prevention (CDC) test method. Urea nitrogen [Mass/volume] in Serum or PlasmaOrdered By: Marvin Iglesias on 05-05-2024 Urea nitrogen [Mass/Vol] 19 mg/dL 7-25 [facility] WBC Auto (Bld) [#/Vol]Ordere d By: Marvin Petersengatoroxi on 05-05-2024 WBC (Bld) [#/Vol] 13.7 10*3/uL High 3.8-11.6 [facility] Activated partial thrombopla stin time (aPTT) in platelet poor plasma by coagulation aOrdered By: Meme Montelongo on 05-04-2024 aPTT Coag (PPP) [Time] 25.5 s 25.1-36.5 [facility] Comment on above: A hematocrit value g reater than 55% may lead to inaccurate results in coagulation testing. Patients having hematocrit values >55% require a special collection tube for coagulation studies. Please contact the laboratory at [phone] for redraw instructions. Alanine aminotransferase [En zymatic activity/volume] in Serum or PlasmaOrdered By: Meme Montelongo on 05-04-2024 ALT [Catalytic activity/Vol] 53 U/L High 7-52 [facility] Albumin [Mass/volume] in Ser um or Plasma by Bromocresol green (BCG) dye binding methoOrdered By: Meme Montelongo on 05-04-2024 Albumin BCG dye [Mass/Vol] 4.2 g/dL 3.5-5.7 [facility] Alkaline phosphatase [Enzyma tic activity/volume] in Serum or PlasmaOrdered By: Meme Montelongo on 05-04-2024 ALP [Catalytic activity/Vol] 61 U/L 34-104 [facility] Aspartate aminotransferase [ Enzymatic activity/volume] in Serum or PlasmaOrdered By: Meme Montelongo on 05-04-2024 AST [Catalytic activity/Vol] 35 U/L 13-39 [facility] Basophils Auto (Bld) [#/Vol] Ordered By: Meme Montelongo on 05-04-2024 Basophils (Bld) [#/Vol] 0.1 10*3/uL 0.0-0.2 [facility] Basophils/100 WBC Auto (Bld) Ordered By: Meme Montelongo on 05-04-2024 Basophils/100 WBC (Bld) 0.9 % . [facility] Bilirubin Test strip Ql (U)O rdered By: Meme Montelongo on 05-04-2024 Bilirubin Ql (U) Negative Negative [facility] Bilirubin.total [Mass/volume ] in Serum or PlasmaOrdered By: Meme Montelongo on 05-04-2024 Bilirubin [Mass/Vol] 0.7 mg/dL 0.3-1.0 [facility] Blood carbon dioxide, total measurement by calculation (moles/volume)Ordered By: Meme Montelongo on 05-04-2024 CO2 Calc (Bld) [Moles/Vol] 28 mmol/L 23-29 [facility] COVID CepheidOrdered By: Gael Montelongo on 05-04-2024 SARS-CoV-2 (COVID-19) Ab IA Ql Negative Negative [facility] Comment on above: This is a duplicate [employer] Xpert Xpress CoV-2/Flu/RSV Plus RNA by RT-PCR result to be used for statistical tracking purpose only. SARS-CoV-2 (COVID-19) RNA COBY+probe Ql (Unsp spec) [facility] CT biopsyOrdered By: Meme Montelongo on 05-04-2024 Hematocrit (Bld) [Volume fraction] 47.0 % 38.0-51.0 [facility] Calcium [Mass/volume] in Ser um or PlasmaOrdered By: Meme Montelongo on 05-04-2024 Calcium [Mass/Vol] 9.2 mg/dL 8.6-10.3 [facility] Carbon dioxide, total [Moles /volume] in Serum or PlasmaOrdered By: Meme Montelongo on 05-04-2024 CO2 [Moles/Vol] 23.5 mmol/L 21.0-31.0 [facility] Chloride (Bld) [Moles/Vol]Or dered By: Meme Montelongo on 05-04-2024 Chloride [Moles/Vol] 104.0 mmol/L 98-109 [facility] Chloride [Moles/volume] in S carlos or PlasmaOrdered By: Meme Montelongo on 05-04-2024 Chloride [Moles/Vol] 105 mmol/L 98-107 [facility] Color Auto (U)Ordered By: Kaveh Montelongo on 05-04-2024 Color (U) Yellow Yellow [facility] Creatine kinase [Enzymatic a ctivity/volume] in Serum or PlasmaOrdered By: Meme Montelongo on 05-04-2024 CK [Catalytic activity/Vol] 65 U/L 30-223 [facility] Creatinine (Bld) [Mass/Vol]O rdered By: Meme Montelongo on 05-04-2024 Creatinine [Mass/Vol] 1.1 mg/dL 0.6-1.3 [facility] Comment on above: ER/ESD physician is notified/shown all ISTAT results.Critical values may be confirmed by laboratory testing ifdeemed necessary by ER attending doctor. Creatinine [Mass/volume] in Serum or PlasmaOrdered By: Meme Montelongo on 05-04-2024 Creatinine [Mass/Vol] 1.14 mg/dL 0.60-1.20 [facility] Eosinophils Auto (Bld) [#/Vo l]Ordered By: Meme Montelongo on 05-04-2024 Eosinophils (Bld) [#/Vol] 0.3 10*3/uL 0.0-0.45 [facility] Eosinophils/100 WBC Auto (Bl d)Ordered By: Meme Montelongo on 05-04-2024 Eosinophils/100 WBC (Bld) 1.9 % . [facility] Erythrocyte distribution wid th Auto (RBC) [Ratio]Ordered By: Meme Montelongo on 05-04-2024 Erythrocyte distribution width (RBC) [Ratio] 13.0 % 11.9-15.3 [facility] Globulin Calc (S) [Mass/Vol] Ordered By: Meme Montelongo on 05-04-2024 Globulin (S) [Mass/Vol] 2.7 g/dL [facility] Glucose Glucometer (BldC) [M ass/Vol]Ordered By: Meme Montelongo on 05-04-2024 Glucose [Mass/Vol] 135 mg/dL High 70-105 [facility] Glucose [Mass/Vol] 127 mg/dL [facility] Comment on above: Random Glucose Refer ence Range is dependent on time and content of last meal. Glucose of more than 200 mg/dL in a nonstressed, ambulatory subject supports the diagnosis of Diabetes Mellitus. Glucose [Mass/volume] in Ser um or PlasmaOrdered By: Meme Montelongo on 05-04-2024 Glucose [Mass/Vol] 133 mg/dL High 70-100 [facility] Comment on above: ADA recommended refe rence rangeRandom Glucose Reference Range is dependent on time and content of last meal. Glucose of more than 200 mg/dL in a nonstressed, ambulatory subject supports the diagnosis of Diabetes Mellitus. Hematocrit Auto (Bld) [Volum e fraction]Ordered By: Meme Montelongo on 05-04-2024 Hematocrit (Bld) [Volume fraction] 42.0 % 34.0-46.4 [facility] Hemoglobin Calc (Bld) [Mass/ Vol]Ordered By: Meme Montelongo on 05-04-2024 Hemoglobin (Bld) [Mass/Vol] 16.0 g/dL 12.0-17.0 [facility] Hemoglobin [Mass/volume] in BloodOrdered By: Meme Montelongo on 05-04-2024 Hemoglobin (Bld) [Mass/Vol] 14.4 g/dL 11.8-15.4 [facility] INR in Platelet poor plasma by Coagulation assayOrdered By: Meme Montelongo on 05-04-2024 INR Coag (PPP) [Relative time] 0.9 {INR} [facility] Comment on above: INR Therapeutic Rang [...] 05-04-2024 Ketones (U) [Mass/Vol] Trace High Negative [facility] Lactate [Moles/volume] in Se rum or PlasmaOrdered By: Meme Montelongo on 05-04-2024 Lactate [Moles/Vol] 1.3 mmol/L 0.5-2.2 [facility] Leukocytes [#/volume] correc alondra for nucleated erythrocytes in Blood by Automated counOrdered By: Meme Montelongo on 05-04-2024 WBC corrected for nucl RBC Auto (Bld) [#/Vol] 16.4 10*3/uL High 3.8-11.6 [facility] Lymphocytes Auto (Bld) [#/Vo l]Ordered By: Meme Montelongo on 05-04-2024 Lymphocytes (Bld) [#/Vol] 2.2 10*3/uL 1.00-4.8 [facility] Lymphocytes/100 WBC Auto (Bl d)Ordered By: Meme Montelongo on 05-04-2024 Lymphocytes/100 WBC (Bld) 13.3 % . [facility] MCH Auto (RBC) [Entitic mass ]Ordered By: Meme Montelongo on 05-04-2024 MCH (RBC) [Entitic mass] 32.2 pg 24.7-34.3 [facility] MCHC Auto (RBC) [Mass/Vol]Or dered By: Meme Montelongo on 05-04-2024 MCHC (RBC) [Mass/Vol] 34.2 g/dL 32.0-35.0 [facility] MCV Auto (RBC) [Entitic vol] Ordered By: Meme Montelongo on 05-04-2024 MCV (RBC) [Entitic vol] 94.4 fL 80-100 [facility] Monocyte distribution width [Entitic volume] in Blood by AutomatedOrdered By: Meme Montelongo on 05-04-2024 Monocyte distribution width Auto (Bld) [Entitic vol] 17.82 % 0.00-20.00 [facility] Monocytes Auto (Bld) [#/Vol] Ordered By: Meme Montelongo on 05-04-2024 Monocytes (Bld) [#/Vol] 1.2 10*3/uL High 0.0-0.8 [facility] Monocytes/100 WBC Auto (Bld) Ordered By: Meme Montelongo on 05-04-2024 Monocytes/100 WBC (Bld) 7.6 % . [facility] Neutrophils Auto (Bld) [#/Vo l]Ordered By: Meme Montelongo on 05-04-2024 Neutrophils (Bld) [#/Vol] 12.5 10*3/uL High 1.8-7.7 [facility] Neutrophils/100 WBC Auto (Bl d)Ordered By: Meme Montelongo on 05-04-2024 Neutrophils/100 WBC (Bld) 76.3 % . [facility] Nitrite Test strip Ql (U)Ord ered By: Meme Montelongo on 05-04-2024 Nitrite Ql (U) Negative Negative [facility] No Panel InformationOrdered By: Meme Montelongo on 05-04-2024 Estimated GFR (CKD-EPI) 51.148 mL/Min [facility] Creatinine Clearance (Chem 40.72 [facility] Nucleated erythrocytes [Pres ence] in Blood by Automated countOrdered By: Meme Montelongo on 05-04-2024 Nucleated RBC Auto Ql (Bld) 0.1 /100{WBC} 0-0.5 [facility] Platelet mean volume Auto (B ld) [Entitic vol]Ordered By: Meme Montelongo on 05-04-2024 Platelet mean volume (Bld) [Entitic vol] 8.2 fL 6.3-10.7 [facility] Platelets Auto (Bld) [#/Vol] Ordered By: Meme Montelongo on 05-04-2024 Platelets (Bld) [#/Vol] 264 10*3/uL 150-450 [facility] Potassium (Bld) [Moles/Vol]O rdered By: Meme Montelongo on 05-04-2024 Potassium [Moles/Vol] 4.5 mmol/L 3.5-4.9 [facility] Potassium [Moles/volume] in Serum or PlasmaOrdered By: Meme Montelongo on 05-04-2024 Potassium [Moles/Vol] 4.5 mmol/L 3.5-5.1 [facility] Protein Auto test strip (U) [Mass/Vol]Ordered By: Meme Montelongo on 05-04-2024 Protein (U) [Mass/Vol] Negative Negative [facility] Protein [Mass/volume] in Ser um or PlasmaOrdered By: Meme Montelongo on 05-04-2024 Protein [Mass/Vol] 6.9 g/dL 6.4-8.9 [facility] Prothrombin time (PT)Ordered By: Meme Montelongo on 05-04-2024 PT Coag (PPP) [Time] 10.8 s 9.0-12.9 [facility] Comment on above: A hematocrit value g reater than 55% may lead to inaccurate results in coagulation testing. Patients having hematocrit values >55% require a special collection tube for coagulation studies. Please contact the laboratory at [phone] for redraw instructions. RBC Auto (Bld) [#/Vol]Ordere d By: Meme Montelongo on 05-04-2024 RBC (Bld) [#/Vol] 4.45 10*6/uL 3.60-5.00 [facility] Serum or plasma albumin/glob ulin mass ratioOrdered By: Meme Montelongo on 05-04-2024 Albumin/Globulin [Mass ratio] 1.6 {ratio} [facility] Serum or plasma anion gap de terminationOrdered By: Meme Montelongo on 05-04-2024 Anion gap [Moles/Vol] 12.0 mmol/L 6.0-15.0 [facility] Sodium (Bld) [Moles/Vol]Orde red By: Meme Montelongo on 05-04-2024 Sodium [Moles/Vol] 138 mmol/L 138-146 [facility] Sodium [Moles/volume] in Ser um or PlasmaOrdered By: Meme Montelongo on 05-04-2024 Sodium [Moles/Vol] 136 mmol/L 136-145 [facility] Specific gravity Auto test s trip (U) [Rel density]Ordered By: Meme Montelongo on 05-04-2024 Specific gravity (U) [Rel density] > 1.050 High 1.001-1.030 [facility] Troponin I.cardiac [Mass/vol ume] in Serum or Plasma by Detection limit <= 0.01 ng/Ordered By: Meme Montelongo on 05-04-2024 Troponin I.cardiac DL <= 0.01 ng/mL [Mass/Vol] 3.6 pg/mL 0.0-15.0 [facility] Urea nitrogen (Bld) [Mass/Vo l]Ordered By: Meme Montelongo on 05-04-2024 Urea nitrogen [Mass/Vol] 27 mg/dL High 8-26 [facility] Urea nitrogen [Mass/volume] in Serum or PlasmaOrdered By: Meme Montelongo on 05-04-2024 Urea nitrogen [Mass/Vol] 26 mg/dL High 7-25 [facility] Urine clarity by refractomet ry automatedOrdered By: Meme Montelongo on 05-04-2024 Clarity Refractometry automated (U) Clear Clear [facility] Urine culture routineOrdered By: Meme Montelongo on 05-04-2024 Bacteria identified Cx Nom (U) 2 Days [facility] Urine glucose measurement by automated test strip (mass/volume)Ordered By: Meme Montelongo on 05-04-2024 Glucose Auto test strip (U) [Mass/Vol] Normal mg/dL Normal [facility] Urine hemoglobin detection b y automated test stripOrdered By: Meme Montelongo on 05-04-2024 Hemoglobin Auto test strip Ql (U) Negative Negative [facility] Urine leukocyte esterase det ection by automated test stripOrdered By: Meme Montelongo on 05-04-2024 Leukocyte esterase Auto test strip Ql (U) Negative Negative [facility] Urobilinogen Auto test strip (U) [Mass/Vol]Ordered By: Meme Montelongo on 05-04-2024 Urobilinogen (U) [Mass/Vol] Normal mg/dL Normal [facility] WBC Auto (Bld) [#/Vol]Ordere d By: Meme Montelongo on 05-04-2024 WBC (Bld) [#/Vol] 16.4 10*3/uL High 3.8-11.6 [facility] Whole blood ionized calcium measurement (moles/volume)Ordered By: Meme Montelongo on 05-04-2024 Calcium.ionized (Bld) [Moles/Vol] 1180 mmol/L 1.12-1.32 [facility] pH Auto test strip (U)Ordere d By: Meme Montelongo on 05-04-2024 pH (U) 5.5 [pH] 5.0-9.0 [facility] Screenson 03-29-2024 Screens [id number] Normal [facility] Ambulatory Visit Summaryon 0 03-28-2024 Ambulatory [...] 18 mos (no labs) Where: [address] [place] [address] [id number] Medications What How Much When Instructions Unchanged [...] 4. R (more content not included)... Normal [facility] Patient Educationon 03-28-20 24 Patient Education Obstetrics and Gynec ology Kegel [...] provider. Document Revised: 02/17/2022 Document Reviewed: 02/17/2022 [employer] Patient Education ? 2022 [employer] [facility] Urology Office/Clinic Noteon 03-28-2024 Urology Office/Clinic Note [...] Contact Information LEIGH LIZ, CARLA Lopes, URL [address] [place] [address] [phone] Additional Instructions: 18 mos (no labs) Patient Education Kegel Exercises Documentation recorded by the scribvernon Arredondo accurately reflects the services(s) I performed and decisions made by me. Authenticated by Carla Jon PA-C on 03/28/2024 12:40:48. I, Kiara [...] influenza virus (more content not included)... Normal [facility] Comment on above: Result Comment: Elec tronically Signed By: CARLA JON PA-C\.br\Date and Time Signed: 03/28/24 12:43 EDT\.br\Electronically Co-Signed By: Kiara Arredondo\.br\Date and Time Co-Signed: 03/28/24 11:32 EDT POCT Glycated hemoglobin, laury alvarez 12-01-2023 HbA1c (Bld) [Mass fraction] 5.9 % [facility] Alanine aminotransferase [En zymatic activity/volume] in Serum or PlasmaOrdered By: Sharmaine Wong on 09-18-2023 ALT [Catalytic activity/Vol] 25 U/L 7-52 [facility] Albumin [Mass/volume] in Ser um or Plasma by Bromocresol green (BCG) dye binding methoOrdered By: Sharmaine Wong on 09-18-2023 Albumin BCG dye [Mass/Vol] 4.4 g/dL 3.5-5.7 [facility] Alkaline phosphatase [Enzyma tic activity/volume] in Serum or PlasmaOrdered By: Sharmaine Wong on 09-18-2023 ALP [Catalytic activity/Vol] 56 U/L 34-104 [facility] Aspartate aminotransferase [ Enzymatic activity/volume] in Serum or PlasmaOrdered By: Sharmaine Wong on 09-18-2023 AST [Catalytic activity/Vol] 24 U/L 13-39 [facility] Bilirubin.total [Mass/volume ] in Serum or PlasmaOrdered By: Sharmaine Wong on 09-18-2023 Bilirubin [Mass/Vol] 1.2 mg/dL 0.3-1.0 [facility] Calcium [Mass/volume] in Ser um or PlasmaOrdered By: Sharmaine Wong on 09-18-2023 Calcium [Mass/Vol] 9.5 mg/dL 8.6-10.3 [facility] Carbon dioxide, total [Moles /volume] in Serum or PlasmaOrdered By: Sharmaine Wong on 09-18-2023 CO2 [Moles/Vol] 32.1 mmol/L 21.0-31.0 [facility] Chloride [Moles/volume] in S carlos or PlasmaOrdered By: Sharmaine Wong on 09-18-2023 Chloride [Moles/Vol] 104 mmol/L 98-107 [facility] Cholesterol [Mass/volume] in Serum or PlasmaOrdered By: Sharmaine Wong on 09-18-2023 Cholesterol [Mass/Vol] 138 mg/dL 140-200 [facility] Comment on above: Chol less than 200 m g/dl low riskChol 201-239 mg/dl borderline riskChol 240 mg/dl and greater high risk Cholesterol in LDL Calc [Mas s/Vol]Ordered By: Sharmaine Wong on 09-18-2023 Cholesterol in LDL [Mass/Vol] 53 mg/dL 0-100 [facility] Comment on above: LDL ATP III CLASSIFI CATIONLDL less than 100 mg/dL OptimalLDL 100-129 mg/dL Near or above optimalLDL 130-159 mg/dL Borderline highLDL 160-189 mg/dL HighLDL greater than 189 mg/dL Very high Cholesterol in VLDL Calc [Ma ss/Vol]Ordered By: Sharmaine Wong on 09-18-2023 Cholesterol in VLDL [Mass/Vol] 27 mg/dL [facility] Creatinine [Mass/volume] in Serum or PlasmaOrdered By: Sharmaine Wong on 09-18-2023 Creatinine [Mass/Vol] 1.12 mg/dL 0.60-1.20 [facility] Creatinine [Mass/volume] in UrineOrdered By: Sharmaine Wong on 09-18-2023 Creatinine (U) [Mass/Vol] 282.0 mg/dL 11.0-20.0 [facility] Erythrocyte distribution wid th Auto (RBC) [Ratio]Ordered By: Sharmaine Wong on 09-18-2023 Erythrocyte distribution width (RBC) [Ratio] 12.9 % 11.9-15.3 [facility] Globulin Calc (S) [Mass/Vol] Ordered By: Sharmaine Wong on 09-18-2023 Globulin (S) [Mass/Vol] 2.4 g/dL [facility] Glucose [Mass/volume] in Ser um or PlasmaOrdered By: Sharmaine Wong on 09-18-2023 Glucose [Mass/Vol] 125 mg/dL 70-100 [facility] Comment on above: ADA recommended refe [...] from glycated hemoglobin (Bld) [Mass/Vol] 154 mg/dL [facility] Hematocrit Auto (Bld) [Volum e fraction]Ordered By: Sharmaine Wong on 09-18-2023 Hematocrit (Bld) [Volume fraction] 44.9 % 34.0-46.4 [facility] Hemoglobin A1c percentageOrd ered By: Sharmaine Wong on 09-18-2023 HbA1c (Bld) [Mass fraction] 7.0 % 4.3-5.6 [facility] Comment on above: Increased risk for d iabetes: 5.7 - 6.4diabetes: >6.4glycemic control for adults with diabetes: <7.0 Hemoglobin [Mass/volume] in BloodOrdered By: Sharmaine Wong on 09-18-2023 Hemoglobin (Bld) [Mass/Vol] 15.0 g/dL 11.8-15.4 [facility] Leukocytes [#/volume] correc alondra for nucleated erythrocytes in Blood by Automated counOrdered By: Sharmaine Wong on 09-18-2023 WBC corrected for nucl RBC Auto (Bld) [#/Vol] 8.7 10*3/uL 3.8-11.6 [facility] MCH Auto (RBC) [Entitic mass ]Ordered By: Sharmaine Wong on 09-18-2023 MCH (RBC) [Entitic mass] 31.4 pg 24.7-34.3 [facility] MCHC Auto (RBC) [Mass/Vol]Or dered By: Sharmaine Wong on 09-18-2023 MCHC (RBC) [Mass/Vol] 33.4 g/dL 32.0-35.0 [facility] MCV Auto (RBC) [Entitic vol] Ordered By: Sharmaine Wong on 09-18-2023 MCV (RBC) [Entitic vol] 94.0 fL 80-100 [facility] No Panel InformationOrdered By: Sharmaine Wong on 09-18-2023 Estimated GFR (CKD-EPI) 52.573 mL/Min [facility] Creatinine Clearance (Chem N/A [facility] Platelet mean volume Auto (B ld) [Entitic vol]Ordered By: Sharmaine Wong on 09-18-2023 Platelet mean volume (Bld) [Entitic vol] 9.0 fL 6.3-10.7 [facility] Platelets Auto (Bld) [#/Vol] Ordered By: Sharmaine Wong on 09-18-2023 Platelets (Bld) [#/Vol] 313 10*3/uL 150-450 [facility] Potassium [Moles/volume] in Serum or PlasmaOrdered By: Sharmaine Wong on 09-18-2023 Potassium [Moles/Vol] 4.9 mmol/L 3.5-5.1 [facility] Protein [Mass/volume] in Ser um or PlasmaOrdered By: Sharmaine Wong on 09-18-2023 Protein [Mass/Vol] 6.8 g/dL 6.4-8.9 [facility] Protein [Mass/volume] in Uri neOrdered By: Sharmaine Wong on 09-18-2023 Protein (U) [Mass/Vol] 26 mg/dL 0-9 [facility] RBC Auto (Bld) [#/Vol]Ordere d By: Sharmaine Wong on 09-18-2023 RBC (Bld) [#/Vol] 4.77 10*6/uL 3.60-5.00 [facility] Serum or plasma albumin/glob ulin mass ratioOrdered By: Sharmaine Wong on 09-18-2023 Albumin/Globulin [Mass ratio] 1.8 {ratio} [facility] Serum or plasma anion gap de terminationOrdered By: Sharmaine Wong on 09-18-2023 Anion gap [Moles/Vol] 9.8 mmol/L 6.0-15.0 [facility] Serum or plasma high density lipoprotein (HDL) cholesterol measurementOrdered By: Sharmaine Wong on 09-18-2023 Cholesterol in HDL [Mass/Vol] 57 mg/dL 23-92 [facility] Comment on above: HDL CHOL ATP-III CLA SSIFICATION Cardiovascular RiskHDL > or equal to 60 mg/dL LOWHDL < 40 mg/dL HIGH Serum or plasma total choles terol/high density lipoprotein (HDL) cholesterol mass ratOrdered By: Sharmaine Wong on 09-18-2023 Cholesterol.total/Chol esterol in HDL [Mass ratio] 2.4 {ratio} <5.0 [facility] Sodium [Moles/volume] in Ser um or PlasmaOrdered By: Sharmaine Wong on 09-18-2023 Sodium [Moles/Vol] 141 mmol/L 136-145 [facility] Triglyceride [Mass/volume] i n Serum or PlasmaOrdered By: Sharmaine Wong on 09-18-2023 Triglyceride [Mass/Vol] 139 mg/dL 0-149 [facility] Comment on above: TRIG ATP III CLASSIF ICATIONTRIG less than 150 mg/dL NormalTRIG 150-199 mg/dL Borderline highTRIG 200-500 mg/dL High TRIG greater than 500 mg/dL Very highStandard traceable to the Center for Disease Conrtrol and Prevention (CDC) test method. Urea nitrogen [Mass/volume] in Serum or PlasmaOrdered By: Sharmaine Wong on 09-18-2023 Urea nitrogen [Mass/Vol] 21 mg/dL 7-25 [facility] Urine protein/creatinine rat ioOrdered By: Sharmaine Wong on 09-18-2023 Protein/Creatinine (U) [Ratio] 92 mg/g{Cre} 0-200 [facility] CHEMISTRYOrdered By: SYSTEM SYSTEM on 03-28-2023 Potassium [Moles/Vol] 5.7 mmol/L High 3.5 - 5.3 mmol/L [facility] Comment on above: Result Comment: 'Spe cimen hemolyzed. Result may be affected. Redraw is recommended.' Laboratory - CoagulationOrde red By: Scott Sellers on 12-23-2022 PT Coag (PPP) [Time] 12.9 s 9.0-12.9 [facility] Platelet poor plasma interna tional normalized ratio (INR) by coagulation assay (relatOrdered By: Scott Sellers on 12-23-2022 INR Coag (PPP) [Relative time] 1.1 {INR} [facility] Comment on above: INR Therapeutic Rang [...] aPTT Coag (PPP) [Time] 19.5 s 25.1-36.5 [facility] Blood activated clotting mehnaz e by coagulation assayOrdered By: Scott Sellers on 12-22-2022 ACT Coag (Bld) 293 s 90-139 [facility] Comment on above: Reference Range: 90- 139 (Non-heparinized) Basophils Auto (Bld) [#/Vol] Ordered By: Scott Sellers on 12-14-2022 Basophils (Bld) [#/Vol] 0.1 10*3/uL 0.0-0.2 [facility] Basophils/100 WBC Auto (Bld) Ordered By: Scott Sellers on 12-14-2022 Basophils/100 WBC (Bld) 0.7 % . [facility] Calcium [Mass/volume] in Ser um or PlasmaOrdered By: Scott Sellers on 12-14-2022 Calcium [Mass/Vol] 9.1 mg/dL 8.2-10.2 [facility] Carbon dioxide, total [Moles /volume] in Serum or PlasmaOrdered By: Scott Sellers on 12-14-2022 CO2 [Moles/Vol] 28.0 mmol/L 22.0-30.0 [facility] Creatinine and Glomerular fi ltration rate.predicted panel (S/P/Bld)Ordered By: Scott Sellers on 12-14-2022 Creatinine [Mass/Vol] 1.00 mg/dL 0.44-1.03 [facility] Eosinophils Auto (Bld) [#/Vo l]Ordered By: Scott Sellers on 12-14-2022 Eosinophils (Bld) [#/Vol] 0.3 10*3/uL 0.0-0.45 [facility] Eosinophils/100 WBC Auto (Bl d)Ordered By: Scott Sellers on 12-14-2022 Eosinophils/100 WBC (Bld) 3.9 % . [facility] Erythrocyte distribution wid th Auto (RBC) [Ratio]Ordered By: Scott Sellers on 12-14-2022 Erythrocyte distribution width (RBC) [Ratio] 12.5 % 11.9-15.3 [facility] Estimated glomerular filtrat ion rate (GFR) non- AmericanOrdered By: Scott Sellers on 12-14-2022 GFR/1.73 sq M.predicted among non-blacks MDRD (S/P/Bld) [Vol rate/Area] 55 mL/Min [facility] Hematocrit Auto (Bld) [Volum e fraction]Ordered By: Scott Sellers on 12-14-2022 Hematocrit (Bld) [Volume fraction] 44.0 % 34.0-46.4 [facility] Hemoglobin [Mass/volume] in BloodOrdered By: Scott Sellers on 12-14-2022 Hemoglobin (Bld) [Mass/Vol] 14.7 g/dL 11.8-15.4 [facility] Leukocytes [#/volume] correc alondra for nucleated erythrocytes in Blood by Automated counOrdered By: Scott Sellers on 12-14-2022 WBC corrected for nucl RBC Auto (Bld) [#/Vol] 8.1 10*3/uL 3.8-11.6 [facility] Lymphocytes Auto (Bld) [#/Vo l]Ordered By: Scott Sellers on 12-14-2022 Lymphocytes (Bld) [#/Vol] 1.8 10*3/uL 1.00-4.8 [facility] Lymphocytes/100 WBC Auto (Bl d)Ordered By: Scott Sellers on 12-14-2022 Lymphocytes/100 WBC (Bld) 22.4 % . [facility] MCH Auto (RBC) [Entitic mass ]Ordered By: Scott Sellers on 12-14-2022 MCH (RBC) [Entitic mass] 31.6 pg 24.7-34.3 [facility] MCHC Auto (RBC) [Mass/Vol]Or dered By: Scott Sellers on 12-14-2022 MCHC (RBC) [Mass/Vol] 33.3 g/dL 32.0-35.0 [facility] MCV Auto (RBC) [Entitic vol] Ordered By: Scott Sellers on 12-14-2022 MCV (RBC) [Entitic vol] 94.8 fL 80-100 [facility] Monocytes Auto (Bld) [#/Vol] Ordered By: Scott Sellers on 12-14-2022 Monocytes (Bld) [#/Vol] 0.6 10*3/uL 0.0-0.8 [facility] Monocytes/100 WBC Auto (Bld) Ordered By: Scott Sellers on 12-14-2022 Monocytes/100 WBC (Bld) 7.2 % . [facility] Neutrophils Auto (Bld) [#/Vo l]Ordered By: Scott Sellers on 12-14-2022 Neutrophils (Bld) [#/Vol] 5.3 10*3/uL 1.8-7.7 [facility] Neutrophils/100 WBC Auto (Bl d)Ordered By: Scott Sellers on 12-14-2022 Neutrophils/100 WBC (Bld) 65.8 % . [facility] No Panel InformationOrdered By: Scott Sellers on 12-14-2022 Estimated GFR () > 60 mL/Min [facility] Comment on above: GFR estimated refere nce range: According to KDOQI guidelines, <60 ml/min/1.73m2 is sufficient to diagnose a patient with chronic kidney disease. Pharmacy Creatinine Clearance (Chem N/A [facility] Nucleated erythrocytes [Pres ence] in Blood by Automated countOrdered By: Scott Sellers on 12-14-2022 Nucleated RBC Auto Ql (Bld) 0.1 /100{WBC} 0-0.5 [facility] Platelet mean volume Auto (B ld) [Entitic vol]Ordered By: Scott Sellers on 12-14-2022 Platelet mean volume (Bld) [Entitic vol] 8.0 fL 6.3-10.7 [facility] Platelets Auto (Bld) [#/Vol] Ordered By: Scott Sellers on 12-14-2022 Platelets (Bld) [#/Vol] 220 10*3/uL 150-450 [facility] RBC Auto (Bld) [#/Vol]Ordere d By: Scott Sellers on 12-14-2022 RBC (Bld) [#/Vol] 4.65 10*6/uL 3.60-5.00 [facility] Serum or plasma anion gap de terminationOrdered By: Scott Sellers on 12-14-2022 Anion gap [Moles/Vol] 10.4 mmol/L 6.0-15.0 [facility] Serum or plasma chloride elvin surement (moles/volume)Ordered By: Scott Sellers on 12-14-2022 Chloride [Moles/Vol] 103 mmol/L 95-114 [facility] Serum or plasma glucose sudhakar urement (mass/volume)Ordered By: Scott Sellers on 12-14-2022 Glucose [Mass/Vol] 132 mg/dL 70-100 [facility] Comment on above: ADA recommended refe rence rangeRandom Glucose Reference Range is dependent on time and content of last meal. Glucose of more than 200 mg/dL in a nonstressed, ambulatory subject supports the diagnosis of Diabetes Mellitus. Serum or plasma potassium me asurement (moles/volume)Ordered By: Scott Sellers on 12-14-2022 Potassium [Moles/Vol] 4.4 mmol/L 3.5-5.1 [facility] Serum or plasma sodium measu rement (moles/volume)Ordered By: Scott Sellers on 12-14-2022 Sodium [Moles/Vol] 137 mmol/L 136-146 [facility] Urea nitrogen [Mass/volume] in Serum or PlasmaOrdered By: Scott Sellers on 12-14-2022 Urea nitrogen [Mass/Vol] 15 mg/dL 9-23 [facility] WBC Auto (Bld) [#/Vol]Ordere d By: Scott Sellers on 12-14-2022 WBC (Bld) [#/Vol] 8.1 10*3/uL 3.8-11.6 [facility] Basophils Auto (Bld) [#/Vol] Ordered By: Christiano Murillo on 11-22-2022 Basophils (Bld) [#/Vol] 0.1 10*3/uL 0.0-0.2 [facility] Basophils/100 WBC Auto (Bld) Ordered By: Christiano Murillo on 11-22-2022 Basophils/100 WBC (Bld) 0.6 % . [facility] Eosinophils Auto (Bld) [#/Vo l]Ordered By: Christiano Murillo on 11-22-2022 Eosinophils (Bld) [#/Vol] 0.3 10*3/uL 0.0-0.45 [facility] Eosinophils/100 WBC Auto (Bl d)Ordered By: Christiano Murillo on 11-22-2022 Eosinophils/100 WBC (Bld) 2.5 % . [facility] Erythrocyte distribution wid th Auto (RBC) [Ratio]Ordered By: Christiano Murillo on 11-22-2022 Erythrocyte distribution width (RBC) [Ratio] 12.4 % 11.9-15.3 [facility] Hematocrit Auto (Bld) [Volum e fraction]Ordered By: Christiano Murillo on 11-22-2022 Hematocrit (Bld) [Volume fraction] 42.4 % 34.0-46.4 [facility] Hemoglobin [Mass/volume] in BloodOrdered By: Christiano Murillo on 11-22-2022 Hemoglobin (Bld) [Mass/Vol] 14.3 g/dL 11.8-15.4 [facility] Leukocytes [#/volume] correc alondra for nucleated erythrocytes in Blood by Automated counOrdered By: Christiano Murillo on 11-22-2022 WBC corrected for nucl RBC Auto (Bld) [#/Vol] 10.1 10*3/uL 3.8-11.6 [facility] Lymphocytes Auto (Bld) [#/Vo l]Ordered By: Christiano Murillo on 11-22-2022 Lymphocytes (Bld) [#/Vol] 2.2 10*3/uL 1.00-4.8 [facility] [facility] Lymph[facility]/100 WBC Auto (Bl d)Ordered By: Christiano Murillo on 11-22-2022 Lymphocytes/100 WBC (Bld) 21.8 % . [facility] MCH Auto (RBC) [Entitic mass ]Ordered By: Christiano Murillo on 11-22-2022 MCH (RBC) [Entitic mass] 32.1 pg 24.7-34.3 [facility] MCHC Auto (RBC) [Mass/Vol]Or dered By: Christiano Murillo on 11-22-2022 MCHC (RBC) [Mass/Vol] 33.8 g/dL 32.0-35.0 [facility] MCV Auto (RBC) [Entitic vol] Ordered By: Christiano Murillo on 11-22-2022 MCV (RBC) [Entitic vol] 94.9 fL 80-100 [facility] Monocytes Auto (Bld) [#/Vol] Ordered By: Christiano Murillo on 11-22-2022 Monocytes (Bld) [#/Vol] 0.8 10*3/uL 0.0-0.8 [facility] Monocytes/100 WBC Auto (Bld) Ordered By: Christiano Murillo on 11-22-2022 Monocytes/100 WBC (Bld) 7.7 % . [facility] Neutrophils Auto (Bld) [#/Vo l]Ordered By: Christiano Murillo on 11-22-2022 Neutrophils (Bld) [#/Vol] 6.8 10*3/uL 1.8-7.7 [facility] Neutrophils/100 WBC Auto (Bl d)Ordered By: Christiano Murillo on 11-22-2022 Neutrophils/100 WBC (Bld) 67.4 % . [facility] Nucleated erythrocytes [Pres ence] in Blood by Automated countOrdered By: Christiano Murillo on 11-22-2022 Nucleated RBC Auto Ql (Bld) 0.2 /100{WBC} 0-0.5 [facility] Platelet mean volume Auto (B ld) [Entitic vol]Ordered By: Christiano Murillo on 11-22-2022 Platelet mean volume (Bld) [Entitic vol] 8.3 fL 6.3-10.7 [facility] Platelets Auto (Bld) [#/Vol] Ordered By: Christiano Murillo on 11-22-2022 Platelets (Bld) [#/Vol] 254 10*3/uL 150-450 [facility] RBC Auto (Bld) [#/Vol]Ordere d By: Christiano Murillo on 11-22-2022 RBC (Bld) [#/Vol] 4.47 10*6/uL 3.60-5.00 [facility] WBC Auto (Bld) [#/Vol]Ordere d By: Christiano Murillo on 11-22-2022 WBC (Bld) [#/Vol] 10.1 10*3/uL 3.8-11.6 [facility] Activated partial thrombopla stin time (aPTT) in platelet poor plasma by coagulation aOrdered By: Delfino Goncalves on 11-12-2022 aPTT Coag (PPP) [Time] 30.7 s 25.1-36.5 [facility] Albumin [Mass/volume] in Ser um or PlasmaOrdered By: Delfino Goncalves on 11-12-2022 Albumin [Mass/Vol] 4.0 g/dL 3.2-5.5 [facility] Basophils Auto (Bld) [#/Vol] Ordered By: Delfino Goncalves on 11-12-2022 Basophils (Bld) [#/Vol] 0.1 10*3/uL 0.0-0.2 [facility] Basophils/100 WBC Auto (Bld) Ordered By: Delfino Goncalves on 11-12-2022 Basophils/100 WBC (Bld) 0.7 % . [facility] Creatinine and Glomerular fi ltration rate.predicted panel (S/P/Bld)Ordered By: Delfino Goncalves on 11-12-2022 Creatinine [Mass/Vol] 1.05 mg/dL 0.44-1.03 [facility] Eosinophils Auto (Bld) [#/Vo l]Ordered By: Delfino Goncalves on 11-12-2022 Eosinophils (Bld) [#/Vol] 0.3 10*3/uL 0.0-0.45 [facility] Eosinophils/100 WBC Auto (Bl d)Ordered By: Delfino Goncalves on 11-12-2022 Eosinophils/100 WBC (Bld) 3.5 % . [facility] Erythrocyte distribution wid th Auto (RBC) [Ratio]Ordered By: Delfino Goncalves on 11-12-2022 Erythrocyte distribution width (RBC) [Ratio] 12.5 % 11.9-15.3 [facility] Estimated glomerular filtrat ion rate (GFR) non- AmericanOrdered By: Delfino Goncalves on 11-12-2022 GFR/1.73 sq M.predicted among non-blacks MDRD (S/P/Bld) [Vol rate/Area] 52 mL/Min [facility] Globulin Calc (S) [Mass/Vol] Ordered By: Delfino Goncalves on 11-12-2022 Globulin (S) [Mass/Vol] 2.3 g/dL [facility] Hematocrit Auto (Bld) [Volum e fraction]Ordered By: Delfino Goncalves on 11-12-2022 Hematocrit (Bld) [Volume fraction] 42.0 % 34.0-46.4 [facility] Hemoglobin [Mass/volume] in BloodOrdered By: Delfino Goncalves on 11-12-2022 Hemoglobin (Bld) [Mass/Vol] 14.3 g/dL 11.8-15.4 [facility] Laboratory - Chemistry and C hemistry - challengeOrdered By: Delfino Goncalves on 11-12-2022 Magnesium [Mass/Vol] 2.0 mg/dL 1.6-2.6 [facility] Natriuretic peptide B (Bld) [Mass/Vol] 46.0 pg/mL 5-100 [facility] Laboratory - CoagulationOrde red By: Delfino Goncalves on 11-12-2022 PT Coag (PPP) [Time] 11.5 s 9.0-12.9 [facility] Leukocytes [#/volume] correc alondra for nucleated erythrocytes in Blood by Automated counOrdered By: Delfino Goncalves on 11-12-2022 WBC corrected for nucl RBC Auto (Bld) [#/Vol] 9.6 10*3/uL 3.8-11.6 [facility] Lymphocytes Auto (Bld) [#/Vo l]Ordered By: Delfino Goncalves on 11-12-2022 Lymphocytes (Bld) [#/Vol] 3.1 10*3/uL 1.00-4.8 [facility] Lymphocytes/100 WBC Auto (Bl d)Ordered By: Delfino Goncalves on 11-12-2022 Lymphocytes/100 WBC (Bld) 32.0 % . [facility] MCH Auto (RBC) [Entitic mass ]Ordered By: Delfino Goncalves on 11-12-2022 MCH (RBC) [Entitic mass] 31.8 pg 24.7-34.3 [facility] MCHC Auto (RBC) [Mass/Vol]Or dered By: Delfino Goncalves on 11-12-2022 MCHC (RBC) [Mass/Vol] 33.9 g/dL 32.0-35.0 [facility] MCV Auto (RBC) [Entitic vol] Ordered By: Delfino Goncalves on 11-12-2022 MCV (RBC) [Entitic vol] 93.8 fL 80-100 [facility] Monocyte distribution width [Entitic volume] in Blood by AutomatedOrdered By: Delfino Goncalves on 11-12-2022 Monocyte distribution width Auto (Bld) [Entitic vol] 16.25 % 0.00-20.00 [facility] Monocytes Auto (Bld) [#/Vol] Ordered By: Delfino Goncalves on 11-12-2022 Monocytes (Bld) [#/Vol] 0.7 10*3/uL 0.0-0.8 [facility] Monocytes/100 WBC Auto (Bld) Ordered By: Delfino Goncalves on 11-12-2022 Monocytes/100 WBC (Bld) 7.8 % . [facility] Neutrophils Auto (Bld) [#/Vo l]Ordered By: Delfino Goncalves on 11-12-2022 Neutrophils (Bld) [#/Vol] 5.4 10*3/uL 1.8-7.7 [facility] Neutrophils/100 WBC Auto (Bl d)Ordered By: Delfino Goncalves on 11-12-2022 Neutrophils/100 WBC (Bld) 56.0 % . [facility] No Panel InformationOrdered By: Delfino Goncalves on 11-12-2022 Estimated GFR () > 60 mL/Min [facility] Comment on above: GFR estimated refere nce range: According to KDOQI guidelines, <60 ml/min/1.73m2 is sufficient to diagnose a patient with chronic kidney disease. Pharmacy Creatinine Clearance (Chem 48.03 [facility] Nucleated erythrocytes [Pres ence] in Blood by Automated countOrdered By: Delfino Goncalves on 11-12-2022 Nucleated RBC Auto Ql (Bld) 0.2 /100{WBC} 0-0.5 [facility] Platelet mean volume Auto (B ld) [Entitic vol]Ordered By: Delfino Goncalves on 11-12-2022 Platelet mean volume (Bld) [Entitic vol] 8.3 fL 6.3-10.7 [facility] Platelet poor plasma interna tional normalized ratio (INR) by coagulation assay (relatOrdered By: Delfino Goncalves on 11-12-2022 INR Coag (PPP) [Relative time] 1.0 {INR} [facility] Comment on above: INR Therapeutic Rang [...] 11-12-2022 Platelets (Bld) [#/Vol] 230 10*3/uL 150-450 [facility] Protein [Mass/volume] in Ser um or PlasmaOrdered By: Delfino Goncalves on 11-12-2022 Protein [Mass/Vol] 6.3 g/dL 6.1-7.9 [facility] RBC Auto (Bld) [#/Vol]Ordere d By: Delfino Goncalves on 11-12-2022 RBC (Bld) [#/Vol] 4.48 10*6/uL 3.60-5.00 [facility] Serum or plasma alanine smith otransferase measurement without P-5'-P (enzymatic activiOrdered By: Delfino Goncalves on 11-12-2022 ALT No additional P-5'-P [Catalytic activity/Vol] 32 U/L 10-60 [facility] Serum or plasma albumin/glob ulin mass ratioOrdered By: Delfino Goncalves on 11-12-2022 Albumin/Globulin [Mass ratio] 1.7 {ratio} [facility] Serum or plasma alkaline lalo sphatase measurement (enzymatic activity/volume)Ordered By: Delfino Goncalves on 11-12-2022 ALP [Catalytic activity/Vol] 59 U/L 32-92 [facility] Serum or plasma anion gap de terminationOrdered By: Delfino Goncalves on 11-12-2022 Anion gap [Moles/Vol] 12.1 mmol/L 6.0-15.0 [facility] Serum or plasma aspartate am inotransferase measurement (enzymatic activity/volume)Ordered By: Delfino Goncalves on 11-12-2022 AST [Catalytic activity/Vol] 27 U/L 10-42 [facility] Serum or plasma calcium sudhakar urement (mass/volume)Ordered By: Delfino Goncalves on 11-12-2022 Calcium [Mass/Vol] 9.1 mg/dL 8.2-10.2 [facility] Serum or plasma chloride elvin surement (moles/volume)Ordered By: Delfino Goncalves on 11-12-2022 Chloride [Moles/Vol] 104 mmol/L 95-114 [facility] Serum or plasma glucose sudhakar urement (mass/volume)Ordered By: Delfino Goncalves on 11-12-2022 Glucose [Mass/Vol] 149 mg/dL 70-100 [facility] Comment on above: ADA recommended refe rence rangeRandom Glucose Reference Range is dependent on time and content of last meal. Glucose of more than 200 mg/dL in a nonstressed, ambulatory subject supports the diagnosis of Diabetes Mellitus. Serum or plasma potassium me asurement (moles/volume)Ordered By: Delfino Goncalves on 11-12-2022 Potassium [Moles/Vol] 3.6 mmol/L 3.5-5.1 [facility] Serum or plasma sodium measu rement (moles/volume)Ordered By: Delfino Goncalves on 11-12-2022 Sodium [Moles/Vol] 135 mmol/L 136-146 [facility] Serum or plasma total biliru bin measurement (mass/volume)Ordered By: Delfino Goncalves on 11-12-2022 Bilirubin [Mass/Vol] 0.7 mg/dL 0.3-1.2 [facility] Serum or plasma total carbon dioxide measurement (moles/volume)Ordered By: Delfino Goncalves on 11-12-2022 CO2 [Moles/Vol] 22.5 mmol/L 22.0-30.0 [facility] Serum or plasma urea nitroge n measurement (mass/volume)Ordered By: Delfino Goncalves on 11-12-2022 Urea nitrogen [Mass/Vol] 15 mg/dL 9-23 [facility] Troponin I.cardiac [Mass/vol ume] in Serum or Plasma by High sensitivity methodOrdered By: Delfino Goncalves on 11-12-2022 Troponin I.cardiac High sensitivity method [Mass/Vol] 5 pg/mL 0-15 [facility] WBC Auto (Bld) [#/Vol]Ordere d By: Delfino Goncalves on 11-12-2022 WBC (Bld) [#/Vol] 9.6 10*3/uL 3.8-11.6 [facility] COVID CepheidOrdered By: Cheyenne Goncalves on 11-11-2022 SARS-CoV-2 (COVID-19) Ab IA Ql Negative Negative [facility] Comment on above: This is a duplicate [employer] Xpert Xpress CoV-2/Flu/RSV Plus RNA by RT-PCR result to be used for statistical tracking purpose only. SARS-CoV-2 (COVID-19) RNA COBY+probe Ql (Unsp spec) [facility] Basophils Auto (Bld) [#/Vol] Ordered By: Sharmaine Wong on 06-29-2022 Basophils (Bld) [#/Vol] 0.0 10*3/uL 0.0-0.2 [facility] Basophils/100 WBC Auto (Bld) Ordered By: Sharmaine Wong on 06-29-2022 Basophils/100 WBC (Bld) 0.6 % . [facility] Bilirubin Test strip Ql (U)O rdered By: Sharmaine Wong on 06-29-2022 Bilirubin Ql (U) Negative Negative [facility] Blood hemoglobin measurement (mass/volume)Ordered By: Sharmaine Wong on 06-29-2022 Hemoglobin (Bld) [Mass/Vol] 14.4 g/dL 11.8-15.4 [facility] Blood leukocytes automated c ount (number/volume)Ordered By: Sharmaine Wong on 06-29-2022 WBC (Bld) [#/Vol] 7.4 10*3/uL 4.5-11.0 [facility] Body fluid albumin measureme nt (mass/volume)Ordered By: Sharmaine Wong on 06-29-2022 Albumin (Body fld) [Mass/Vol] 3.9 g/dL 3.2-5.5 [facility] Cholesterol [Mass/volume] in Serum or PlasmaOrdered By: Sharmaine Wong on 06-29-2022 Cholesterol [Mass/Vol] 153 mg/dL 140-200 [facility] Comment on above: Chol less than 200 m g/dl low risk Chol 201-239 mg/dl borderline risk Chol 240 mg/dl and greater high risk Cholesterol in LDL Calc [Mas s/Vol]Ordered By: Sharmaine Wong on 06-29-2022 Cholesterol in LDL [Mass/Vol] 60 mg/dL 0-100 [facility] Comment on above: LDL ATP III CLASSIFI CATION LDL less than 100 mg/dL Optimal LDL 100-129 mg/dL Near or above optimal LDL 130-159 mg/dL Borderline high LDL 160-189 mg/dL High LDL greater than 189 mg/dL Very high Cholesterol in VLDL Calc [Ma ss/Vol]Ordered By: Sharmaine Wong on 06-29-2022 Cholesterol in VLDL [Mass/Vol] 37 mg/dL [facility] Color Auto (U)Ordered By: Sa henrique Wong on 06-29-2022 Color (U) Yellow Yellow [facility] Creatinine [Mass/volume] in UrineOrdered By: Sharmaine Wong on 06-29-2022 Creatinine (U) [Mass/Vol] 93.7 mg/dL [facility] Comment on above: No reference range e stablished Creatinine and Glomerular fi ltration rate.predicted panel (S/P/Bld)Ordered By: Sharmaine Wong on 06-29-2022 Creatinine [Mass/Vol] 1.14 mg/dL 0.44-1.03 [facility] Eosinophils Auto (Bld) [#/Vo l]Ordered By: Sharmaine Wong on 06-29-2022 Eosinophils (Bld) [#/Vol] 0.4 10*3/uL 0.0-0.45 [facility] Eosinophils/100 WBC Auto (Bl d)Ordered By: Sharmaine Wong on 06-29-2022 Eosinophils/100 WBC (Bld) 5.4 % . [facility] Erythrocyte distribution wid th Auto (RBC) [Ratio]Ordered By: Sharmaine Wong on 06-29-2022 Erythrocyte distribution width (RBC) [Ratio] 12.8 % 11.9-15.3 [facility] Estimated glomerular filtrat ion rate (GFR) non- AmericanOrdered By: Sharmaine Wong on 06-29-2022 GFR/1.73 sq M.predicted among non-blacks MDRD (S/P/Bld) [Vol rate/Area] 47 mL/Min [facility] Globulin Calc (S) [Mass/Vol] Ordered By: Sharmaine Wong on 06-29-2022 Globulin (S) [Mass/Vol] 2.5 g/dL [facility] Hematocrit Auto (Bld) [Volum e fraction]Ordered By: Sharmaine Wong on 06-29-2022 Hematocrit (Bld) [Volume fraction] 42.9 % 34.0-46.4 [facility] Ketones Auto test strip (U) [Mass/Vol]Ordered By: Sharmaine Wong on 06-29-2022 Ketones (U) [Mass/Vol] Negative Negative [facility] Laboratory - Hematology and Cell countsOrdered By: Sharmaine Wong on 06-29-2022 Nucleated RBC/100 WBC (Bld) [Ratio] 0.1 % 0-0.5 [facility] Lymphocytes Auto (Bld) [#/Vo l]Ordered By: Sharmaine Wong on 06-29-2022 Lymphocytes (Bld) [#/Vol] 2.4 10*3/uL 1.00-4.8 [facility] Lymphocytes/100 WBC Auto (Bl d)Ordered By: Sharmaine Wong on 06-29-2022 Lymphocytes/100 WBC (Bld) 32.0 % . [facility] MCH Auto (RBC) [Entitic mass ]Ordered By: Sharmaine Wong on 06-29-2022 MCH (RBC) [Entitic mass] 32.2 pg 24.7-34.3 [facility] MCHC Auto (RBC) [Mass/Vol]Or dered By: Sharmaine Wong on 06-29-2022 MCHC (RBC) [Mass/Vol] 33.5 g/dL 32.0-35.0 [facility] MCV Auto (RBC) [Entitic vol] Ordered By: Sharmaine Wong on 06-29-2022 MCV (RBC) [Entitic vol] 96.0 fL 80-100 [facility] Monocytes Auto (Bld) [#/Vol] Ordered By: Sharmaine Wong on 06-29-2022 Monocytes (Bld) [#/Vol] 0.6 10*3/uL 0.0-0.8 [facility] Monocytes/100 WBC Auto (Bld) Ordered By: Sharmaine Wong on 06-29-2022 Monocytes/100 WBC (Bld) 8.0 % . [facility] Neutrophils Auto (Bld) [#/Vo l]Ordered By: Sharmaine Wong on 06-29-2022 Neutrophils (Bld) [#/Vol] 4.0 10*3/uL 1.8-7.7 [facility] Neutrophils/100 WBC Auto (Bl d)Ordered By: Sharmaine Wong on 06-29-2022 Neutrophils/100 WBC (Bld) 54.0 % . [facility] Nitrite Test strip Ql (U)Ord ered By: Sharmaine Wong on 06-29-2022 Nitrite Ql (U) Negative Negative [facility] No Panel InformationOrdered By: Sharmaine Wong on 06-29-2022 Estimated GFR () 57 mL/Min [facility] Comment on above: GFR estimated refere nce range: According to KDOQI guidelines, <60 ml/min/1.73m2 is sufficient to diagnose a patient with chronic kidney disease. Pharmacy Creatinine Clearance (Chem N/A [facility] Platelet mean volume Auto (B ld) [Entitic vol]Ordered By: Sharmaine Wong on 06-29-2022 Platelet mean volume (Bld) [Entitic vol] 8.6 fL 6.3-10.7 [facility] Platelets Auto (Bld) [#/Vol] Ordered By: Sharmaine Wong on 06-29-2022 Platelets (Bld) [#/Vol] 287 10*3/uL 150-450 [facility] Protein Auto test strip (U) [Mass/Vol]Ordered By: Sharmaine Wong on 06-29-2022 Protein (U) [Mass/Vol] Negative Negative [facility] Protein [Mass/volume] in Ser um or PlasmaOrdered By: Sharmaine Wong on 06-29-2022 Protein [Mass/Vol] 6.4 g/dL 6.1-7.9 [facility] RBC Auto (Bld) [#/Vol]Ordere d By: Sharmaine Wong on 06-29-2022 RBC (Bld) [#/Vol] 4.47 10*6/uL 3.60-5.00 [facility] Serum or plasma alanine smith otransferase measurement without P-5'-P (enzymatic activiOrdered By: Sharmaine Wong on 06-29-2022 ALT No additional P-5'-P [Catalytic activity/Vol] 23 U/L 10-60 [facility] Serum or plasma albumin/glob ulin mass ratioOrdered By: Sharmaine Wong on 06-29-2022 Albumin/Globulin [Mass ratio] 1.6 {ratio} [facility] Serum or plasma alkaline lalo sphatase measurement (enzymatic activity/volume)Ordered By: Sharmaine Wong on 06-29-2022 ALP [Catalytic activity/Vol] 54 U/L 32-92 [facility] Serum or plasma anion gap de terminationOrdered By: Sharmaine Wong on 06-29-2022 Anion gap [Moles/Vol] 14.6 mmol/L 6.0-15.0 [facility] Serum or plasma aspartate am inotransferase measurement (enzymatic activity/volume)Ordered By: Sharmaine Wong on 06-29-2022 AST [Catalytic activity/Vol] 22 U/L 10-42 [facility] Serum or plasma calcium sudhakar urement (mass/volume)Ordered By: Sharmaine Wong on 06-29-2022 Calcium [Mass/Vol] 9.3 mg/dL 8.2-10.2 [facility] Serum or plasma chloride elvin surement (moles/volume)Ordered By: Sharmaine Sanches on 06-29-2022 Chloride [Moles/Vol] 101 mmol/L 95-114 [facility] Serum or plasma glucose sudhakar urement (mass/volume)Ordered By: Sharmaine Wong on 06-29-2022 Glucose [Mass/Vol] 136 mg/dL 70-100 [facility] Comment on above: ADA recommended refe rence range Random Glucose Reference Range is dependent on time and content of last meal. Glucose of more than 200 mg/dL in a nonstressed, ambulatory subject supports the diagnosis of Diabetes Mellitus. Serum or plasma high density lipoprotein (HDL) cholesterol measurementOrdered By: Sharmaine Wong on 06-29-2022 Cholesterol in HDL [Mass/Vol] 55 mg/dL 35-85 [facility] Comment on above: HDL CHOL ATP-III CLA SSIFICATION Cardiovascular Risk HDL > or equal to 60 mg/dL LOW HDL < 40 mg/dL HIGH Serum or plasma potassium me asurement (moles/volume)Ordered By: Sharmaine Sanches on 06-29-2022 Potassium [Moles/Vol] 5.3 mmol/L 3.5-5.1 [facility] Serum or plasma sodium measu rement (moles/volume)Ordered By: Sharmaine Wong on 06-29-2022 Sodium [Moles/Vol] 138 mmol/L 136-146 [facility] Serum or plasma total biliru bin measurement (mass/volume)Ordered By: Sharmaine Wong on 06-29-2022 Bilirubin [Mass/Vol] 1.2 mg/dL 0.3-1.2 [facility] Serum or plasma total carbon dioxide measurement (moles/volume)Ordered By: Sharmaine Wong on 06-29-2022 CO2 [Moles/Vol] 27.7 mmol/L 22.0-30.0 [facility] Serum or plasma total choles terol/high density lipoprotein (HDL) cholesterol mass ratOrdered By: Sharmaine Wong on 06-29-2022 Cholesterol.total/Chol esterol in HDL [Mass ratio] 2.8 {ratio} <5.0 [facility] Serum or plasma urea nitroge n measurement (mass/volume)Ordered By: Sharmaine Wong on 06-29-2022 Urea nitrogen [Mass/Vol] 15 mg/dL 9- [facility] Specific gravity Auto test s trip (U) [Rel density]Ordered By: Sharmaine Sanches on 06-29-2022 Specific gravity (U) [Rel density] 1.010 1.001-1.030 [facility] Triglyceride [Mass/volume] i n Serum or PlasmaOrdered By: Sharmaine Wong on 06-29-2022 Triglyceride [Mass/Vol] 188 mg/dL 35-149 [facility] Comment on above: TRIG ATP III CLASSIF ICATION TRIG less than 150 mg/dL Normal TRIG 150-199 mg/dL Borderline high TRIG 200-500 mg/dL High TRIG greater than 500 mg/dL Very high Standard traceable to the Center for Disease Conrtrol and Prevention (CDC) test method. Urine clarity by refractomet ry automatedOrdered By: Sharmaine Wong on 06-29-2022 Clarity Refractometry automated (U) Clear Clear [facility] Urine glucose measurement by automated test strip (mass/volume)Ordered By: Sharmaine Wong on 06-29-2022 Glucose Auto test strip (U) [Mass/Vol] Normal mg/dL Normal [facility] Urine hemoglobin detection b y automated test stripOrdered By: Sharmaine Sanches on 06-29-2022 Hemoglobin Auto test strip Ql (U) Negative Negative [facility] Urine leukocyte esterase det ection by automated test stripOrdered By: Sharmaine Wong on 06-29-2022 Leukocyte esterase Auto test strip Ql (U) Negative Negative [facility] Urine microalbumin measureme nt with detection limit of 20 mg/L or less (mass/volume)Ordered By: Sharmaine Wong on 06-29-2022 Albumin DL <= 20 mg/L (U) [Mass/Vol] mg/dL 0.0-1.8 [facility] Urine microalbumin/creatinin e mass ratioOrdered By: Sharmaine Wong on 06-29-2022 Albumin/Creatinine DL <= 20 mg/L (U) [Mass ratio] TNP [facility] Comment on above: Test not performed Urobilinogen Auto test strip (U) [Mass/Vol]Ordered By: Sharmaine Wong on 06-29-2022 Urobilinogen (U) [Mass/Vol] Normal mg/dL Normal [facility] pH Auto test strip (U)Ordere d By: Sharmaine Wong on 06-29-2022 pH (U) 5.5 [pH] 5.0-9.0 [facility] 24 hour urine sodium measure ment (moles/time)Ordered By: Jazmin Mauro on 06-10-2022 Sodium (24H U) [Moles/Time] 95 mmol/24 40-220 [facility] 24 hour urine uric acid sudhakar urement (mass/time)Ordered By: Jazmin Mauro on 06-10-2022 Urate (24H U) [Mass/Time] 274.5 mg/24 hr 142.3-713.2 [facility] Comment on above: Performed at: [address] [id number] [employer]: Bebo Gibbons PhD, Phone: [phone] CT biopsyOrdered By: Jazmin Mauro on 06-10-2022 CT biopsy 24 Hours [facility] Calcium [Mass/time] in 24 ho ur UrineOrdered By: Jazmin Mauro on 06-10-2022 Calcium (24H U) [Mass/Time] 174 mg/24 hr 0-320 [facility] Calcium [Mass/volume] in 24 hour UrineOrdered By: Jazmin Mauro on 06-10-2022 Calcium (24H U) [Mass/Vol] 5.5 mg/dL Not Estab. [facility] Creatinine [Mass/volume] in UrineOrdered By: Jazmin Mauro on 06-10-2022 Creatinine (U) [Mass/Vol] 32.63 mg/dL [facility] Comment on above: No reference range e stablished Creatinine and Glomerular fi ltration rate.predicted panel (S/P/Bld)Ordered By: Jazmin Mauro on 06-10-2022 Creatinine [Mass/Vol] 1.16 mg/dL 0.44-1.03 [facility] Estimated glomerular filtrat ion rate (GFR) non- AmericanOrdered By: Jazmin Mauro on 06-10-2022 GFR/1.73 sq M.predicted among non-blacks MDRD (S/P/Bld) [Vol rate/Area] 46 mL/Min [facility] Magnesium [Mass/time] in 24 hour UrineOrdered By: Jazmin Mauro on 06-10-2022 Magnesium (24H U) [Mass/Time] 113.6 mg/24 hr 12.0-293.0 [facility] Magnesium [Mass/volume] in U rineOrdered By: Jazmin Mauro on 06-10-2022 Magnesium (U) [Mass/Vol] 3.6 mg/dL Not Estab. [facility] No Panel InformationOrdered By: Jazmin Mauro on 06-10-2022 Estimated GFR () 56 mL/Min [facility] Comment on above: GFR estimated refere nce range: According to KDOQI guidelines, <60 ml/min/1.73m2 is sufficient to diagnose a patient with chronic kidney disease. Pharmacy Creatinine Clearance (Chem N/A [facility] Urine Citric Acid 32 mg/L Undefined [facility] Urine Citric Acid 24 Hour 101 mg/24 hr 320-1240 [facility] Comment on above: This test was develo ped and its performance characteristics determined by [facility]. It has not been cleared or approved by the Food and Drug Administration. Performed at: [employer] - [facility] [address] [id number] [employer]ic: Nir Adame MD, Phone: [phone] Urine Creatinine 24 Hour 1.03 g/24 hr 0.80-1.89 [facility] Oxalate [Mass/time] in 24 ho ur UrineOrdered By: Jazmin Mauro on 06-10-2022 Oxalate (24H U) [Mass/Time] 16 mg/24 hr 4-31 [facility] Comment on above: Performed at: [facility] [address] [id number] [employer] Maintenance Mechanic: Nir Adame MD, Phone: [phone] Oxalate [Mass/volume] in Uri neOrdered By: Jazmin Mauro on 06-10-2022 Oxalate (U) [Mass/Vol] 5 mg/L Undefined [facility] Phosphate [Mass/time] in 24 hour UrineOrdered By: Jazmin Mauro on 06-10-2022 Phosphate (24H U) [Mass/Time] 350 mg/24 hr 261-1078 [facility] Phosphate [Mass/volume] in U rineOrdered By: Jazmin Mauro on 06-10-2022 Phosphate (U) [Mass/Vol] 11.1 mg/dL Not Estab. [facility] Serum or plasma calcium sudhakar urement (mass/volume)Ordered By: Jazmin Mauro on 06-10-2022 Calcium [Mass/Vol] 9.7 mg/dL 8.2-10.2 [facility] Serum or plasma chloride elvin surement (moles/volume)Ordered By: Jazmin Mauro on 06-10-2022 Chloride [Moles/Vol] 101 mmol/L 95-114 [facility] Serum or plasma intact parat hyroid hormone measurement (mass/volume)Ordered By: Jazmin Mauro on 06-10-2022 Parathyrin.intact [Mass/Vol] 39.0 pg/mL 12-88 [facility] Serum or plasma potassium me asurement (moles/volume)Ordered By: Jazmin Mauro on 06-10-2022 Potassium [Moles/Vol] 4.9 mmol/L 3.5-5.1 [facility] Serum or plasma sodium measu rement (moles/volume)Ordered By: Jazmin Mauro on 06-10-2022 Sodium [Moles/Vol] 139 mmol/L 136-146 [facility] Serum or plasma total carbon dioxide measurement (moles/volume)Ordered By: Jazmin Mauro on 06-10-2022 CO2 [Moles/Vol] 26.6 mmol/L 22.0-30.0 [facility] Serum or plasma urea nitroge n measurement (mass/volume)Ordered By: Jazmin Mauro on 06-10-2022 Urea nitrogen [Mass/Vol] 13 mg/dL 9-23 [facility] Serum or plasma uric acid me asurement (mass/volume)Ordered By: Jazmin Mauro on 06-10-2022 Urate [Mass/Vol] 6.8 mg/dL 2.6-7.2 [facility] Urine sodium measurement (mo les/volume)Ordered By: Jazmin Mauro on 06-10-2022 Sodium (U) [Moles/Vol] 30.0 mmol/L [facility] Comment on above: No reference range e stablished Urine uric acid measurement (mass/volume)Ordered By: Jazmin Mauro on 06-10-2022 Urate (U) [Mass/Vol] 8.7 mg/dL Not Estab. [facility] Urine volume measurementOrde red By: Jazmin Mauro on 06-10-2022 Specimen volume (U) 3155 ml [facility] Creatinine and Glomerular fi ltration rate.predicted panel (S/P/Bld)Ordered By: Sharmaine Wong on 05-31-2022 Creatinine [Mass/Vol] 1.06 mg/dL 0.44-1.03 [facility] Estimated glomerular filtrat ion rate (GFR) non- AmericanOrdered By: Sharmaine Wong on 05-31-2022 GFR/1.73 sq M.predicted among non-blacks MDRD (S/P/Bld) [Vol rate/Area] 51 mL/Min [facility] No Panel InformationOrdered By: Sharmaine Wong on 05-31-2022 Estimated GFR () > 60 mL/Min [facility] Comment on above: GFR estimated refere nce range: According to KDOQI guidelines, <60 ml/min/1.73m2 is sufficient to diagnose a patient with chronic kidney disease. Pharmacy Creatinine Clearance (Chem N/A [facility] Serum or plasma calcium sudhakar urement (mass/volume)Ordered By: Sharmaine Wong on 05-31-2022 Calcium [Mass/Vol] 9.1 mg/dL 8.2-10.2 [facility] Serum or plasma chloride elvin surement (moles/volume)Ordered By: Sharmaine Sanches on 05-31-2022 Chloride [Moles/Vol] 101 mmol/L 95-114 [facility] Serum or plasma glucose sudhakar urement (mass/volume)Ordered By: Sharmaine Wong on 05-31-2022 Glucose [Mass/Vol] 135 mg/dL 70-100 [facility] Comment on above: ADA recommended refe rence range Random Glucose Reference Range is dependent on time and content of last meal. Glucose of more than 200 mg/dL in a nonstressed, ambulatory subject supports the diagnosis of Diabetes Mellitus. Serum or plasma potassium me asurement (moles/volume)Ordered By: Sharmaine Sanches on 05-31-2022 Potassium [Moles/Vol] 4.4 mmol/L 3.5-5.1 [facility] Serum or plasma sodium measu rement (moles/volume)Ordered By: Sharmaine Wong on 05-31-2022 Sodium [Moles/Vol] 140 mmol/L 136-146 [facility] Serum or plasma total carbon dioxide measurement (moles/volume)Ordered By: Sharmaine Wong on 05-31-2022 CO2 [Moles/Vol] 26.5 mmol/L 22.0-30.0 [facility] Serum or plasma urea nitroge n measurement (mass/volume)Ordered By: Sharmaine Wong on 05-31-2022 Urea nitrogen [Mass/Vol] 14 mg/dL 9-23 [facility] Basophils Auto (Bld) [#/Vol] Ordered By: Sharmaine Wong on 05-25-2022 Basophils (Bld) [#/Vol] 0.0 10*3/uL 0.0-0.2 [facility] Basophils/100 WBC Auto (Bld) Ordered By: Sharmaine Wong on 05-25-2022 Basophils/100 WBC (Bld) 0.6 % . [facility] Blood hemoglobin measurement (mass/volume)Ordered By: Sharmaine Wong on 05-25-2022 Hemoglobin (Bld) [Mass/Vol] 14.6 g/dL 11.8-15.4 [facility] Blood leukocytes automated c ount (number/volume)Ordered By: Sharmaine Wong on 05-25-2022 WBC (Bld) [#/Vol] 7.5 10*3/uL 4.5-11.0 [facility] Body fluid albumin measureme nt (mass/volume)Ordered By: Sharmaine Wong on 05-25-2022 Albumin (Body fld) [Mass/Vol] 4.0 g/dL 3.2-5.5 [facility] Creatinine and Glomerular fi ltration rate.predicted panel (S/P/Bld)Ordered By: Sharmaine Wong on 05-25-2022 Creatinine [Mass/Vol] 1.16 mg/dL 0.44-1.03 [facility] Eosinophils Auto (Bld) [#/Vo l]Ordered By: Sharmaine Wong on 05-25-2022 Eosinophils (Bld) [#/Vol] 0.3 10*3/uL 0.0-0.45 [facility] Eosinophils/100 WBC Auto (Bl d)Ordered By: Sharmaine Wong on 05-25-2022 Eosinophils/100 WBC (Bld) 3.6 % . [facility] Erythrocyte distribution wid th Auto (RBC) [Ratio]Ordered By: Sharmaine Wong on 05-25-2022 Erythrocyte distribution width (RBC) [Ratio] 12.9 % 11.9-15.3 [facility] Estimated glomerular filtrat ion rate (GFR) non- AmericanOrdered By: Sharmaine Wong on 05-25-2022 GFR/1.73 sq M.predicted among non-blacks MDRD (S/P/Bld) [Vol rate/Area] 46 mL/Min [facility] Globulin Calc (S) [Mass/Vol] Ordered By: Sharmaine Wong on 05-25-2022 Globulin (S) [Mass/Vol] 2.4 g/dL [facility] Hematocrit Auto (Bld) [Volum e fraction]Ordered By: Sharmaine Wong on 05-25-2022 Hematocrit (Bld) [Volume fraction] 43.9 % 34.0-46.4 [facility] Laboratory - Chemistry and C hemistry - challengeOrdered By: Sharmaine Wong on 05-25-2022 Cobalamin (Vitamin B12) [Mass/Vol] 1974 pg/mL 180-914 [facility] Laboratory - Hematology and Cell countsOrdered By: Sharmaine Wong on 05-25-2022 Nucleated RBC/100 WBC (Bld) [Ratio] 0.1 % 0-0.5 [facility] Lymphocytes Auto (Bld) [#/Vo l]Ordered By: Sharmaine Wong on 05-25-2022 Lymphocytes (Bld) [#/Vol] 1.7 10*3/uL 1.00-4.8 [facility] Lymphocytes/100 WBC Auto (Bl d)Ordered By: Sharmaine Wong on 05-25-2022 Lymphocytes/100 WBC (Bld) 23.1 % . [facility] MCH Auto (RBC) [Entitic mass ]Ordered By: Sharmaine Wong on 05-25-2022 MCH (RBC) [Entitic mass] 32.1 pg 24.7-34.3 [facility] MCHC Auto (RBC) [Mass/Vol]Or dered By: Sharmaine Wong on 05-25-2022 MCHC (RBC) [Mass/Vol] 33.4 g/dL 32.0-35.0 [facility] MCV Auto (RBC) [Entitic vol] Ordered By: Sharmaine Wong on 05-25-2022 MCV (RBC) [Entitic vol] 96.0 fL 80-100 [facility] Monocytes Auto (Bld) [#/Vol] Ordered By: Sharmaine Wong on 05-25-2022 Monocytes (Bld) [#/Vol] 0.6 10*3/uL 0.0-0.8 [facility] Monocytes/100 WBC Auto (Bld) Ordered By: Sharmaine Wong on 05-25-2022 Monocytes/100 WBC (Bld) 8.2 % . [facility] Neutrophils Auto (Bld) [#/Vo l]Ordered By: Sharmaine Wong on 05-25-2022 Neutrophils (Bld) [#/Vol] 4.8 10*3/uL 1.8-7.7 [facility] Neutrophils/100 WBC Auto (Bl d)Ordered By: Sharmaine Wong on 05-25-2022 Neutrophils/100 WBC (Bld) 64.5 % . [facility] No Panel InformationOrdered By: Sharmaine Wong on 05-25-2022 Estimated GFR () 56 mL/Min [facility] Comment on above: GFR estimated refere nce range: According to KDOQI guidelines, <60 ml/min/1.73m2 is sufficient to diagnose a patient with chronic kidney disease. Pharmacy Creatinine Clearance (Chem N/A [facility] Platelet mean volume Auto (B ld) [Entitic vol]Ordered By: Sharmaine Wong on 05-25-2022 Platelet mean volume (Bld) [Entitic vol] 8.7 fL 6.3-10.7 [facility] Platelets Auto (Bld) [#/Vol] Ordered By: Sharmaine Wong on 05-25-2022 Platelets (Bld) [#/Vol] 255 10*3/uL 150-450 [facility] Protein [Mass/volume] in Ser um or PlasmaOrdered By: Sharmaine Wong on 05-25-2022 Protein [Mass/Vol] 6.4 g/dL 6.1-7.9 [facility] RBC Auto (Bld) [#/Vol]Ordere d By: Sharmaine Wong on 05-25-2022 RBC (Bld) [#/Vol] 4.57 10*6/uL 3.60-5.00 [facility] Serum or plasma alanine smith otransferase measurement without P-5'-P (enzymatic activiOrdered By: Sharmaine Wong on 05-25-2022 ALT No additional P-5'-P [Catalytic activity/Vol] 23 U/L 10-60 [facility] Serum or plasma albumin/glob ulin mass ratioOrdered By: Sharmaine Wong on 05-25-2022 Albumin/Globulin [Mass ratio] 1.7 {ratio} [facility] Serum or plasma alkaline lalo sphatase measurement (enzymatic activity/volume)Ordered By: Sharmaine Wong on 05-25-2022 ALP [Catalytic activity/Vol] 53 U/L 32-92 [facility] Serum or plasma aspartate am inotransferase measurement (enzymatic activity/volume)Ordered By: Sharmaine Wong on 05-25-2022 AST [Catalytic activity/Vol] 20 U/L 10-42 [facility] Serum or plasma calcium sudhakar urement (mass/volume)Ordered By: Sharmaine Wong on 05-25-2022 Calcium [Mass/Vol] 9.7 mg/dL 8.2-10.2 [facility] Serum or plasma chloride elvin surement (moles/volume)Ordered By: Sharmaine Sanches on 05-25-2022 Chloride [Moles/Vol] 98 mmol/L 95-114 [facility] Serum or plasma glucose sudhakar urement (mass/volume)Ordered By: Sharmaine Wong on 05-25-2022 Glucose [Mass/Vol] 131 mg/dL 70-100 [facility] Comment on above: ADA recommended refe rence range Random Glucose Reference Range is dependent on time and content of last meal. Glucose of more than 200 mg/dL in a nonstressed, ambulatory subject supports the diagnosis of Diabetes Mellitus. Serum or plasma potassium me asurement (moles/volume)Ordered By: Sharmaine Sanches on 05-25-2022 Potassium [Moles/Vol] 5.2 mmol/L 3.5-5.1 [facility] Serum or plasma sodium measu rement (moles/volume)Ordered By: Sharmaine Wong on 05-25-2022 Sodium [Moles/Vol] 138 mmol/L 136-146 [facility] Serum or plasma total biliru bin measurement (mass/volume)Ordered By: Sharmaine Wong on 05-25-2022 Bilirubin [Mass/Vol] 1.3 mg/dL 0.3-1.2 [facility] Comment on above: Samples from patient s who have taken Naproxen have shown spurious elevation in Total Bilirubin levels. A metabolite of Naproxen, O-desmethylnaproxen, has been shown to interfere with the Edwige method for measuring Total Bilirubin. Serum or plasma total carbon dioxide measurement (moles/volume)Ordered By: Sharmaine Wong on 05-25-2022 CO2 [Moles/Vol] 27.9 mmol/L 22.0-30.0 [facility] Serum or plasma urea nitroge n measurement (mass/volume)Ordered By: Sharmaine DamianKe on 05-25-2022 Urea nitrogen [Mass/Vol] 19 mg/dL 9-23 [facility] TSH DL <= 0.005 mIU/L QnOrde red By: Sharmaine DamianKe on 05-25-2022 TSH Qn 4.24 m[IU]/L 0.45-5.33 [facility] SCREENING MAMMOGRAM W/RICHARD, BILATERAL*on 02-21-2022 SCREENING [...] VERY IMPORTANT TO YOUR HEALTH. THE CURRENT CITIZEN OF [place] [employer] GUIDELINES RECOMMENDS ANNUAL MAMMOGRAPHY BEGINNING AT AGE 42 THIS FACILITY USES A REMINDER SYSTEM TO ENSURE ALL PATIENTS RECEIVE REMINDER NOTIFICATIONS AT THE APPROPRIATE TIME BASED ON THE RECOMMENDATIONS OF THIS EXAM. Board Certified Radiologist. Accredited by the ACR and FDA. Report reported and signed by Nehemias Anderson on 02/21/2022 1050 Normal [facility] XR KUB 1 VIEWon 12-10-2020 XR KUB [...] by: TL JORDAN Date: 2020-12-10 09:32 Normal [facility] Vital Signs Date Time Vital Sign Value Performing Clinician Facility 05-09-2025 15:17-0400 Body height 157.48 cm Sharmaine Damian-Bland DO Work Phone: [facility] 05-09-2025 15:17-0400 Body temperature 98.9 [degF] Sharmaine Damian-Bland DO Work Phone: [facility] 05-09-2025 15:17-0400 Body weight 72.57 kg Sharmaine Damian-Bland DO Work Phone: [facility] 05-09-2025 15:17-0400 Diastolic blood pressure 72 mm[Hg] Sharmaine Damian-Bland DO Work Phone: [facility] 05-09-2025 15:17-0400 Heart rate 69 /min Sharmaine Damian-Bland DO Work Phone: [facility] 05-09-2025 15:17-0400 Respiratory rate 20 /min Sharmaine Damian-Bland DO Work Phone: [facility] 05-09-2025 15:17-0400 SaO2% (BldA) [Mass fraction] 94 % Sharmaine Damian-Bland DO Work Phone: [facility] 05-09-2025 15:17-0400 Systolic blood pressure 113 mm[Hg] Sharmaine Damian-Bland DO Work Phone: [facility] 05-01-2025 11:09-0400 Body mass index (BMI) [Ratio] 30.42 kg/m2 Sharmaine Damian-Bland DO Work Phone: [facility] 05-01-2025 11:09-0400 Body weight 73.03 kg Sharmaine Damian-Bland DO Work Phone: [facility] 05-01-2025 11:09-0400 Diastolic blood pressure 76 mm[Hg] Sharmaine Damian-Bland DO Work Phone: [facility] 05-01-2025 11:09-0400 Heart rate 58 /min Sharmaine Damian-Bland DO Work Phone: [facility] 05-01-2025 11:09-0400 SaO2% (BldA) [Mass fraction] 98 % Sharmaine Damian-Bland DO Work Phone: [facility] 05-01-2025 11:09-0400 Systolic blood pressure 132 mm[Hg] Sharmaine Damian-Bland DO Work Phone: [facility] 04-15-2025 11:28-0400 Body temperature 97.5 [degF] Sharmaine Damian-Bland DO Work Phone: [facility] 04-15-2025 11:28-0400 Body weight 72.57 kg Sharmaine Damian-Bland DO Work Phone: [facility] 04-15-2025 11:28-0400 Diastolic blood pressure 76 mm[Hg] Sharmaine Damian-Bland DO Work Phone: [facility] 04-15-2025 11:28-0400 Heart rate 62 /min Sharmaine Damian-Bland DO Work Phone: [facility] 04-15-2025 11:28-0400 SaO2% (BldA) [Mass fraction] 96 % Sharmaine Damian-Bland DO Work Phone: [facility] 04-15-2025 11:28-0400 Systolic blood pressure 122 mm[Hg] Sharmaine Damian-Bland DO Work Phone: [facility] 12-26-2024 09:35-0500 Body mass index (BMI) [Ratio] 30.65 kg/m2 Sharmaine Damian-Bland DO Work Phone: [facility] 12-26-2024 09:35-0500 Body weight 73.57 kg Sharmaine Damian-Bland DO Work Phone: [facility] 12-26-2024 09:35-0500 Diastolic blood pressure 62 mm[Hg] Sharmaine Damian-Bland DO Work Phone: [facility] 12-26-2024 09:35-0500 Heart rate 67 /min Sharmaine Martinaver-Bland DO Work Phone: [facility] 12-26-2024 09:35-0500 SaO2% (BldA) [Mass fraction] 96 % Sharmaine Damian-Bland DO Work Phone: [facility] 12-26-2024 09:35-0500 Systolic blood pressure 108 mm[Hg] Sharmaine Damian-Bland DO Work Phone: [facility] 12-04-2024 14:27-0500 Body height 154.9 cm Ambrosio Brown DPM Work Phone: [facility] 12-04-2024 14:27-0500 Body mass index (BMI) [Ratio] 29.85 kg/m2 Ambrosio Brown DPM Work Phone: [facility] 12-04-2024 14:27-0500 Body weight 71.67 kg Ambrosio Brown DPM Work Phone: [facility] 12-04-2024 14:27-0500 Respiratory rate 18 /min Ambrosio Brown DPM Work Phone: [facility] 11-20-2024 13:37-0500 Body height 154.9 cm Ambrosio Brown DPM Work Phone: [facility] 11-20-2024 13:37-0500 Body mass index (BMI) [Ratio] 29.85 kg/m2 Ambrosio Brown DPM Work Phone: [facility] 11-20-2024 13:37-0500 Body weight 71.67 kg Ambrosio Brown DPM Work Phone: [facility] 11-20-2024 13:37-0500 Respiratory rate 18 /min Ambrosio Brown DPM Work Phone: [facility] 11-04-2024 10:14-0500 Body height 154.9 cm Ambrosio Brown DPM Work Phone: [facility] 11-04-2024 10:14-0500 Body mass index (BMI) [Ratio] 29.85 kg/m2 Ambrosio Brown DPM Work Phone: [facility] 11-04-2024 10:14-0500 Body weight 71.67 kg Ambrosio Brown DPM Work Phone: [facility] 11-04-2024 10:14-0500 Respiratory rate 18 /min Ambrosio Brown DPM Work Phone: [facility] 10-01-2024 13:28-0500 Body height 154.9 cm Ambrosio Brown DPM Work Phone: [facility] 10-01-2024 13:28-0500 Body mass index (BMI) [Ratio] 29.85 kg/m2 Ambrosio Brown DPM Work Phone: [facility] 10-01-2024 13:28-0500 Body weight 71.67 kg Ambrosio Brown DPM Work Phone: [facility] 10-01-2024 13:28-0500 Respiratory rate 16 /min Ambrosio Ellis DPM Work Phone: [facility] 09-03-2024 16:07-0500 Body height 154.9 cm Ambrosio Mcghee DPM Work Phone: [facility] 09-03-2024 16:07-0500 Body mass index (BMI) [Ratio] 29.85 kg/m2 Ambrosio Brown DPM Work Phone: [facility] 09-03-2024 16:07-0500 Body weight 71.67 kg Ambrosio Brown DPM Work Phone: [facility] 09-03-2024 16:07-0500 Diastolic blood pressure 79 mm[Hg] Ambrosio Brown DPM Work Phone: [facility] 09-03-2024 16:07-0500 Heart rate 82 /min Ambrosio Brown DPM Work Phone: [facility] 09-03-2024 16:07-0500 Systolic blood pressure 128 mm[Hg] Ambrosio Mcghee DPM Work Phone: [facility] 08-30-2024 09:45-0500 Body mass index (BMI) [Ratio] 29.85 kg/m2 Sharmaine Damian-Bland DO Work Phone: [facility] 08-30-2024 09:45-0500 Body weight 71.67 kg Sharmaine Damian-Bland DO Work Phone: [facility] 08-30-2024 09:45-0500 Diastolic blood pressure 76 mm[Hg] Sharmaine Damian-Bland DO Work Phone: [facility] 08-30-2024 09:45-0500 Heart rate 67 /min Sharmaine Damian-Bland DO Work Phone: [facility] 08-30-2024 09:45-0500 SaO2% (BldA) [Mass fraction] 97 % Sharmaine Damian-Bland DO Work Phone: [facility] 08-30-2024 09:45-0500 Systolic blood pressure 122 mm[Hg] Sharmaine Damian-Bland DO Work Phone: [facility] 05-07-2024 08:28-0400 Body temperature 97.8 [degF] DO Sharmaine Damian-Bland Work Phone: [facility] 05-07-2024 08:28-0400 Diastolic blood pressure 70 mm[Hg] DO Sharmaine Damian-Bland Work Phone: [facility] 05-07-2024 08:28-0400 Heart rate 62 /min DO Sharmaine Damian-Bland Work Phone: [facility] 05-07-2024 08:28-0400 Respiratory rate 18 /min DO Sharmaine Damian-Bland Work Phone: [facility] 05-07-2024 08:28-0400 SaO2% (BldA) [Mass fraction] 97 % DO Sharmaine Dmaian-Bland Work Phone: [facility] 05-07-2024 08:28-0400 Systolic blood pressure 114 mm[Hg] DO Sharmaine Damian-Bland Work Phone: [facility] 05-07-2024 05:19-0400 Body weight 70 kg DO Sharmaine Damian-Bland Work Phone: [facility] 05-04-2024 21:45-0400 Body height 157.48 cm DO Sharmaine Damian-Bland Work Phone: [facility] 05-04-2024 20:19-0400 Diastolic blood pressure 72 mm[Hg] DO Sharmaine Damian-Bland Work Phone: [facility] 05-04-2024 20:19-0400 Heart rate 62 /min DO Sharmaine Damian-Bland Work Phone: [facility] 05-04-2024 20:19-0400 Respiratory rate 18 /min DO Sharmaine Damian-Bland Work Phone: [facility] 05-04-2024 20:19-0400 SaO2% (BldA) [Mass fraction] 98 % DO Sharmaine Damian-Bland Work Phone: [facility] 05-04-2024 20:19-0400 Systolic blood pressure 161 mm[Hg] DO Sharmaine Damian-Bland Work Phone: [facility] 05-04-2024 16:14-0400 Body temperature 98.2 [degF] DO Sharmaine Damian-Bland Work Phone: [facility] 05-04-2024 16:10-0400 Body height 157.48 cm DO Sharmaine Damian-Bland Work Phone: [facility] 05-04-2024 16:10-0400 Body weight 69.4 kg DO Sharmaine Damian-Bland Work Phone: [facility] 04-09-2024 11:14-0400 Body height 157.48 cm DO Sharmaine Damian-Bland Work Phone: [facility] 04-09-2024 11:14-0400 Body mass index (BMI) [Ratio] 27.4 kg/m2 DO Sharmaine Damian-Bland Work Phone: [facility] 04-09-2024 11:14-0400 Body temperature 97.6 [degF] DO Sharmaine Damian-Bland Work Phone: [facility] 04-09-2024 11:14-0400 Body weight 68.03 kg DO Sharmaine Damian-Bland Work Phone: [facility] 04-09-2024 11:14-0400 Diastolic blood pressure 66 mm[Hg] DO Sharmaine Damian-Bland Work Phone: [facility] 04-09-2024 11:14-0400 Heart rate 64 /min DO Sharmaine Damian-Bland Work Phone: [facility] 04-09-2024 11:14-0400 Respiratory rate 16 /min DO Sharmaine Damian-Bland Work Phone: [facility] 04-09-2024 11:14-0400 SaO2% (BldA) [Mass fraction] 96 % DO Sharmaine Damian-Bland Work Phone: [facility] 04-09-2024 11:14-0400 Systolic blood pressure 116 mm[Hg] DO Sharmaine Damian-Bland Work Phone: [facility] 03-28-2024 10:46-0400 Blood Pressure Location [facility] 03-28-2024 10:46-0400 Body temperature 96.8 [degF] CARLA LE[facility] 03-28-2024 10:46-0400 Diastolic blood pressure 68 mm[Hg] CARLA LEIGH [facility] 03-28-2024 10:46-0400 Heart rate 64 /min [facility] LE[facility] 03-28-2024 10:46-0400 Respiratory rate 18 /min CAR[facility] 03-28-2024 10:46-0400 Systolic blood pressure 120 mm[Hg] CAR[facility] LE[facility] 12-01-2023 10:22-0500 Body mass index (BMI) [Ratio] 28.23 kg/m2 Sharmaine Damian-Bland DO Work Phone: [facility] 12-01-2023 10:22-0500 Body weight 67.77 kg Sahrmaine Damian-Bland DO Work Phone: [facility] 12-01-2023 10:22-0500 Diastolic blood pressure 78 mm[Hg] Shramaine Damian-Bland DO Work Phone: [facility] 12-01-2023 10:22-0500 Heart rate 62 /min Sharmaine Damian-Bland DO Work Phone: [facility] 12-01-2023 10:22-0500 SaO2% (BldA) [Mass fraction] 98 % Sharmaine Damian-Bland DO Work Phone: [facility] 12-01-2023 10:22-0500 Systolic blood pressure 124 mm[Hg] Sharmaine Damian-Bland DO Work Phone: [facility] 10-10-2023 12:30-0500 Body height 157.48 cm Carissa Ruttino Other [facility] Other 10-10-2023 12:30-0500 Body mass index (BMI) [Ratio] 28.16 kg/m2 Carissa Dias Other [facility] Other 10-10-2023 12:30-0500 Body temperature 97.6 [degF] Carissa Petesriramdamian Other [facility] Other 10-10-2023 12:30-0500 Body weight 69.85 kg Carissa Dias Other [facility] Other 10-10-2023 12:30-0500 Diastolic blood pressure 68 mm[Hg] Carissa Dias Other [facility] Other 10-10-2023 12:30-0500 SaO2% (BldA) [Mass fraction] 98 % Carissa Dias Other [facility] Other 10-10-2023 12:30-0500 Systolic blood pressure 116 mm[Hg] Carissa Dias Other [facility] Other 04-10-2023 10:45-0400 Body height 157.48 cm Carissa Dias Other [facility] Other 04-10-2023 10:45-0400 Body mass index (BMI) [Ratio] 29.63 kg/m2 Carissa Dias Other [facility] Other 04-10-2023 10:45-0400 Body temperature 97.3 [degF] Carissa Petesriramo Other [facility] Other 04-10-2023 10:45-0400 Body weight 73.48 kg Carissa Dias Other [facility] Other 04-10-2023 10:45-0400 Diastolic blood pressure 62 mm[Hg] Carissa Dias Other [facility] Other 04-10-2023 10:45-0400 SaO2% (BldA) [Mass fraction] 98 % Carissa Dias Other [facility] Other 04-10-2023 10:45-0400 Systolic blood pressure 110 mm[Hg] Carissa Dias Other [facility] Other 03-31-2023 09:18-0400 Diastolic blood pressure 66 mm[Hg] DO Sharmaine Damian-Bland Work Phone: [facility] 03-31-2023 09:18-0400 Heart rate 58 /min DO Sharmaine Damian-Bland Work Phone: [facility] 03-31-2023 09:18-0400 Respiratory rate 16 /min DO Sharmaine Damian-Bland Work Phone: [facility] 03-31-2023 09:18-0400 SaO2% (BldA) [Mass fraction] 98 % DO Sharmaine Damian-Bland Work Phone: [facility] 03-31-2023 09:18-0400 Systolic blood pressure 128 mm[Hg] DO Sharmaine Damian-Bland Work Phone: [facility] 03-31-2023 07:34-0400 Body height 157.48 cm DO Sharmaine Damian-Bland Work Phone: [facility] 03-31-2023 07:34-0400 Body temperature 98.2 [degF] DO Sharmaine Damian-Bland Work Phone: [facility] 03-31-2023 07:34-0400 Body weight 74.84 kg DO Sharmaine Damian-Bland Work Phone: [facility] 03-28-2023 12:54-0400 Blood Pressure Location CARLA LEIGH [facility] 03-28-2023 12:54-0400 Diastolic blood pressure 74 mm[Hg] CARLA LEIGH [facility] 03-28-2023 12:54-0400 Heart rate 67 /min CARLA LEIGH [facility] 03-28-2023 12:54-0400 Respiratory rate 16 /min CARLA LEIGH [facility] 03-28-2023 12:54-0400 Systolic blood pressure 132 mm[Hg] CARLA LEIGH [facility] 01-16-2023 12:15-0400 Body height 157.48 cm Carissa Dias Other [employer] [facility] Other 01-16-2023 12:15-0400 Body mass index (BMI) [Ratio] 29.63 kg/m2 Carissa Dias Other [employer] [facility] Other 01-16-2023 12:15-0400 Body temperature 97.3 [degF] Carissa Dias Other [facility] Other 01-16-2023 12:15-0400 Body weight 73.48 kg Carissa Dias Other [facility] Other 01-16-2023 12:15-0400 Diastolic blood pressure 74 mm[Hg] Carissa Dias Other [facility] Other 01-16-2023 12:15-0400 SaO2% (BldA) [Mass fraction] 96 % Carissa Dias Other [facility] Other 01-16-2023 12:15-0400 Systolic blood pressure 116 mm[Hg] Carissa Dias Other [facility] Other 12-23-2022 08:00-0500 Inhaled oxygen flow rate 2 L/min DO Sharmaine Damian-Bland Work Phone: [facility] 12-23-2022 05:34-0500 Body weight 73 kg DO Sharmaine Damian-Bland Work Phone: [facility] 12-23-2022 04:00-0500 Body temperature 98 [degF] DO Sharmaine Damian-Bland Work Phone: [facility] 12-23-2022 04:00-0500 Diastolic blood pressure 53 mm[Hg] DO Sharmaine Damian-Bland Work Phone: [facility] 12-23-2022 04:00-0500 Heart rate 70 /min DO Sharmaine Damian-Bland Work Phone: [facility] 12-23-2022 04:00-0500 Respiratory rate 14 /min DO Sharmaine Damian-Bland Work Phone: [facility] 12-23-2022 04:00-0500 SaO2% (BldA) [Mass fraction] 95 % DO Sharmaine Damian-Bland Work Phone: [facility] 12-23-2022 04:00-0500 Systolic blood pressure 102 mm[Hg] DO Sharmaine Damian-Bland Work Phone: [facility] 12-22-2022 11:48-0500 Body height 157.48 cm DO Sharmaine Damian-Bland Work Phone: [facility] 12-22-2022 11:48-0500 Body mass index (BMI) [Ratio] 28.9 kg/m2 DO Sharmaine Damian-Bland Work Phone: [facility] 11-12-2022 04:08-0500 Diastolic blood pressure 89 mm[Hg] DO Sharmaine Damian-Bland Work Phone: [facility] 11-12-2022 04:08-0500 Heart rate 89 /min DO Sharmaine Damian-Bland Work Phone: [facility] 11-12-2022 04:08-0500 Respiratory rate 16 /min DO Sharmaine Damian-Bland Work Phone: [facility] 11-12-2022 04:08-0500 SaO2% (BldA) [Mass fraction] 96 % DO Sharmaine Damian-Bland Work Phone: [facility] 11-12-2022 04:08-0500 Systolic blood pressure 175 mm[Hg] DO Sharmaine Damian-Bland Work Phone: [facility] 11-11-2022 23:42-0500 Body height 157.48 cm DO Sharmaine Damian-Bland Work Phone: [facility] 11-11-2022 23:42-0500 Body weight 77.4 kg DO Sharmaine Damian-Bland Work Phone: [facility] 11-11-2022 23:41-0500 Body temperature 98 [degF] DO Sharmaine Damian-Bland Work Phone: [facility] 06-22-2022 09:44-0400 Body height 157.48 cm DO Sharmaine Damian-Bland Work Phone: [facility] 06-22-2022 09:44-0400 Body weight 74.38 kg DO Sharmaine Wong Work Phone: [facility] 05-31-2022 13:30-0400 Body height 157.48 cm Carissa Petebhavana Other [facility] Other 05-31-2022 13:30-0400 Body mass index (BMI) [Ratio] 29.63 kg/m2 Carissa Larissa Other [facility] Other 05-31-2022 13:30-0400 Body temperature 97.1 [degF] Carissa Larissa Other [facility] Other 05-31-2022 13:30-0400 Body weight 73.48 kg Carissa Larissa Other [facility] Other 05-31-2022 13:30-0400 Diastolic blood pressure 64 mm[Hg] Carissa Larissa Other [facility] Other 05-31-2022 13:30-0400 SaO2% (BldA) [Mass fraction] 97 % Carissa Larissa Other [facility] Other 05-31-2022 13:30-0400 Systolic blood pressure 112 mm[Hg] Carissa Larissa Other [facility] Other Encounters Encounter Date Encounter Type Care Provider Facility Start: 05-09-2025 End: 05-09-2025 Emergency department patient visit Sharmaine Wong DO Work Phone: -Emergency Room Work Phone: Start: 05-01-2025 End: 05-01-2025 Office outpatient visit 25 minutes Sharmaine Wong DO Work Phone: [facility] Comment on above: Type 2 diabetes federico itus with stage 3a chronic kidney disease, without long-term current use of insulin (HCC) (Primary Dx); Stage 3a chronic kidney disease (CMS-HCC); Essential hypertension ; Hyperlipidemia LDL goal <100 ; Carotid stenosis, bilateral Start: 05-01-2025 End: 05-01-2025 ambulatory SHARMAINE WONG Not Available Start: 04-15-2025 End: 04-15-2025 Patient encounter procedure Carissa Dias P[employer]PERINTENDENT -[facility] Work Phone: Start: 04-15-2025 End: 04-15-2025 ambulatory Carissa Dias Facility:[facility] Start: 12-26-2024 End: 12-26-2024 ambulatory SHARMAINE DAMIAN-EMERY Not Available Start: 12-26-2024 End: 12-26-2024 Office outpatient visit 25 minutes Sharmaine Rodriguezy DO Work Phone: [facility] Comment on above: Essential hypertensi on [...] Arthritis Start: 12-26-2024 End: 12-26-2024 ambulatory SHARMAINE RODRIGUEZY Not Available Start: 12-25-2024 End: 12-25-2024 Patient encounter procedure Sharmaine Wong DO Work Phone: [facility] Start: 12-25-2024 End: 12-25-2024 ambulatory Sharmaine Rodriguezy DO Work Phone: [facility] Work Phone: Start: 12-04-2024 End: 12-04-2024 Postop follow up visit related to original px Ambrosio Mcghee DPM Work Phone: [facility] Comment on above: Plantar fasciitis (P rimary Dx); Exostosis of right foot; Contracture of right ankle Start: 12-04-2024 End: 12-04-2024 ambulatory AMBROSIO MCGHEE Not Available Start: 12-04-2024 End: 12-04-2024 Bamboo flowsheet Ambrosio Rahul Ellis DPM Work Phone: [facility] Start: 12-04-2024 End: 12-04-2024 Bamboo flowsheet Ambrosio Rahul Ellis DPM Work Phone: [facility] Start: 11-20-2024 End: 11-20-2024 Bamboo flowsheet Ambrosio Rahul Ellis DPM Work Phone: [facility] Start: 11-20-2024 End: 11-20-2024 Bamboo flowsheet Ambrosio Rahul Brown DPM Work Phone: [facility] Start: 11-20-2024 End: 11-20-2024 ambulatory AMBROSIO MCGHEE Not Available Start: 11-20-2024 End: 11-20-2024 Postop follow up visit related to original px Ambrosio Kay Ellis DPM Work Phone: [facility] Comment on above: Exostosis of right f oot (Primary Dx); Plantar fasciitis; Contracture of right ankle Start: 11-08-2024 End: 11-08-2024 Patient encounter procedure Sharmaine Wong DO Work Phone: [facility] Work Phone: Start: 11-08-2024 End: 11-08-2024 ambulatory Sharmaine Damian-Bland DO Work Phone: [facility] Work Phone: Start: 11-04-2024 End: 11-04-2024 Bamboo flowsheet Ambrosio Mcghee DPM Work Phone: [facility] Start: 11-04-2024 End: 11-04-2024 Bamboo flowsheet Ambrosio Mcghee DPM Work Phone: [facility] Start: 11-04-2024 End: 11-04-2024 External Result Encounter Ambrosio Mcghee DPM Work Phone: [facility] Unsolicited Start: 11-04-2024 End: 11-04-2024 Patient encounter procedure Sharmaine Damian-Bland DO Work Phone: [facility] Start: 11-04-2024 Encounter for other preprocedural examination Ambrosio Mcghee [facility] Start: 11-04-2024 End: 11-04-2024 Office outpatient visit 25 minutes Ambrosio Mcghee DPM Work Phone: [facility] Comment on above: Exostosis of right f oot (Primary Dx); Plantar fasciitis; Contracture of right ankle Start: 11-04-2024 End: 11-04-2024 ambulatory Sharmainera Damian-Bland DO Work Phone: [facility] Work Phone: Start: 10-01-2024 End: [...] minutes Sharmaine Wong DO Work Phone: [facility] Comment on above: Medicare annual well ness visit, subsequent (Primary Dx); ACP (advance care planning); Type 2 diabetes mellitus with stage 3a chronic kidney disease, without long-term current use of insulin (HCC) ([facility]); Essential hypertension ([facility]); Carotid stenosis, bilateral; Hyperlipidemia LDL goal <100 ([facility]); Arthritis of left knee; Stage 3a chronic kidney disease (HCC) ([facility]); TIA (transient ischemic attack); BMI 29.0-29.9,adult Start: 08-30-2024 End: 08-30-2024 Patient encounter procedure Sharmaine Wong DO Work Phone: [facility] Work Phone: Start: 08-30-2024 End: 08-30-2024 ambulatory SHARMAINE WONG Not Available Start: 05-08-2024 End: 05-08-2024 ambulatory SHARMAINE WONG Not Available Start: 05-04-2024 End: 05-07-2024 Evaluation and management of inpatient DO Sharmaine Wong Work Phone: [facility] [place] [facility] Work Phone: Start: 05-04-2024 End: 05-07-2024 observation encounter DO Sharmaine Wong Work Phone: [facility] Work Phone: Start: 04-09-2024 End: 04-09-2024 ambulatory DO Sharmaine Wong Work Phone: [facility] Work Phone: Start: 04-09-2024 End: 04-09-2024 Patient encounter procedure DO Sharmaine Wong Work Phone: [facility] Work Phone: Start: 03-28-2024 End: 03-28-2024 ambulatory PA-Era JON Facility:[facility] Start: 03-28-2024 End: 03-28-2024 Patient encounter procedure CARLA JON [facility] Start: 12-01-2023 End: 12-01-2023 Office outpatient visit 25 minutes Sharmaine Wong DO Work Phone: [facility] Comment on above: Type 2 diabetes federico itus with stage 3a chronic kidney disease, without long-term current use of insulin (HCC) (CMS/HCC) (Primary Dx); Stage 3a chronic kidney disease (HCC) (CMS/HCC); Hyperlipidemia LDL goal <100 (CMS/HCC); Essential hypertension (CMS/HCC); BMI 28.0-28.9,adult; Viral upper respiratory tract infection Start: 10-10-2023 End: 10-10-2023 Patient encounter procedure DO Sharmaine Wong Work Phone: [facility] Start: 10-10-2023 End: 10-10-2023 ambulatory DO Sharmaine Damian-Bland Work Phone: [facility] Work Phone: Start: 09-18-2023 End: 09-18-2023 ambulatory DO Sharmaine Damian-Bland Work Phone: [facility] Work Phone: Start: 09-18-2023 End: 09-18-2023 Patient encounter procedure DO Sharmaine Damian-Bland Work Phone: [facility] Start: 04-10-2023 End: 04-10-2023 Patient encounter procedure Carissa Dias [facility] Start: 04-10-2023 End: 04-10-2023 ambulatory DO Sharmaine Damian-Bland Work Phone: [facility] Work Phone: Start: 03-31-2023 End: 03-31-2023 Admission to same day surgery center DO Sharmaine Damian-Bland Work Phone: [facility]Digestive Health Work Phone: Start: 03-29-2023 End: 03-29-2023 Patient encounter procedure Jazmin MAURO [facility] Start: 03-28-2023 End: 03-28-2023 Lab Drop off CARLA JON [facility] Start: 03-28-2023 End: 03-28-2023 Patient encounter procedure CARLA JON [facility] [place] Start: 01-16-2023 End: 01-16-2023 ambulatory Carissa Dias Other [facility] Other Start: 01-16-2023 Patient encounter procedure Carissa Dias [facility] V[facility] Start: 12-27-2022 End: 12-27-2022 ambulatory Scott Sellers Other [facility] Other Start: 12-27-2022 Telephone encounter Scott Sellers [facility] V[facility] Surgery Start: 12-22-2022 End: 12-23-2022 Evaluation and management of inpatient DO Sharmaine Damian-Bland Work Phone: [facility] [place] [facility] Work Phone: Start: 12-14-2022 End: 12-14-2022 ambulatory DO Sharmaine Damian-Bland Work Phone: [facility] Work Phone: Start: 12-14-2022 End: 12-14-2022 Patient encounter procedure DO Sharmaine Damian-Bland Work Phone: [facility] Work Phone: Start: 12-07-2022 End: 12-07-2022 ambulatory Scott Sellers Other [facility] Other Start: 12-07-2022 Telephone encounter Scott Sellers [facility] V[facility] Surgery Start: 12-05-2022 End: 12-05-2022 ambulatory DO Sharmaine Damian-Bland Work Phone: [facility] Work Phone: Start: 12-05-2022 End: 12-05-2022 Patient encounter procedure DO Sharmaine Damian-Bland Work Phone: [facility] Start: 11-22-2022 End: 11-22-2022 ambulatory DO Sharmaine Damian-Bland Work Phone: [facility] Work Phone: Start: 11-22-2022 End: 11-22-2022 Patient encounter procedure DO Sharmaine Damian-Bland Work Phone: [facility]Lab Main [place] Work Phone: Start: 11-15-2022 End: 11-15-2022 ambulatory Imad Asaad Other [facility] Other Start: 11-15-2022 Telephone encounter Imad Asaad [facility] Chief Physical Therapist Start: 11-11-2022 End: 11-12-2022 Emergency department patient visit DO Sharmaine Damian-Bland Work Phone: [facility]-Emergency Room Work Phone: Start: 07-20-2022 End: 07-20-2022 ambulatory Carissa Dias Other [facility] Other Start: 07-20-2022 Telephone encounter Carissa Reynolds [facility] Start: 06-29-2022 End: 06-29-2022 Patient encounter procedure DO Sharmaine Damian-Bland Work Phone: [facility] Start: 06-22-2022 End: 06-22-2022 Patient encounter procedure DO Sharmaine Damian-Bland Work Phone: [facility]-MRI Main [place] Start: 06-10-2022 End: 06-10-2022 Patient encounter procedure DO Sharmaine Damian-Bland Work Phone: [facility] Main [place] Start: 06-03-2022 End: 06-03-2022 Patient encounter procedure DO Sharmaine Damian-Bland Work Phone: [facility]-Ultrasound Main [place] Start: 05-31-2022 End: 05-31-2022 ambulatory Carissa Dias Other [facility] Other Start: 05-31-2022 End: 05-31-2022 Patient encounter procedure Carissa Dias [facility] Start: 05-25-2022 End: 05-25-2022 Patient encounter procedure DO Sharmaine Wong Work Phone: [facility] Start: 12-10-2020 End: 12-11-2020 Patient encounter procedure JAZMIN MAURO Facility:[facility] Procedures Date Procedure Procedure Detail Performing Clinician Start: 05-09-2025 Plain X-ray of left hip Sharmaine Damian-Bland DO Work Phone: Start: 05-09-2025 X-ray of lumbar spin e, four or more views Sharmaine Damian-Bennett DO Work Phone: Start: 05-01-2025 Hemoglobin glycosylated a1c Sharmaine Damian-Bland DO Work Phone: Start: 12-26-2024 Mammography Sharmaine hernandez-Bennett DO Work Phone: Start: 11-04-2024 Basic metabolic pane l calcium total Ambrosio Mcghee DPM Work Phone: Start: 11-04-2024 Complete blood count with white cell differential, automated Ambrosio Mcghee DPM Work Phone: Start: 08-30-2024 Hemoglobin glycosylated a1c Sharmaine Damian-Bland DO Work Phone: Start: 05-06-2024 MRI of head DO Sharmaine Damian-Bland Work Phone: Start: 05-04-2024 CT angiography of head DO Sharmaine Damian-Bland Work Phone: Start: 05-04-2024 CT angiography of ne ck vessels DO Sharmaine Damian-Bland Work Phone: Start: 05-04-2024 CT of head without contrast DO Sharmaine Martinaver-Bland Work Phone: Start: 05-04-2024 SARS-CoV-2, Influenz a & RSV (PCR) DO Sharmaine Damian-Bland Work Phone: Start: 05-04-2024 Urine culture DO Sharmaine Damian-Bennett Work Phone: Start: 04-09-2024 Doppler ultrasonogra phy of bilateral carotid arteries DO Sharmaine Damian-Bennett Work Phone: Start: 12-01-2023 Hemoglobin glycosylated a1c Sharmaine D Damian-Bennett DO Work Phone: Start: 11-09-2023 Mammography Sharmaine Jensen david-Bland DO Work Phone: Start: 03-31-2023 Screening colonoscopy D O Sharmaine Wong Work Phone: Start: 03-31-2023 Colonoscopy Sharmaine Martina david-Bland DO Work Phone: Start: 12-22-2022 Insertion of carotid artery stent DO Sharmaine Wong Work Phone: Start: 12-05-2022 Doppler ultrasonogra phy of bilateral carotid arteries DO Sharmaine Wong Work Phone: Start: 11-11-2022 Plain chest X-ray DO Sa henrique Wong Work Phone: Start: 11-11-2022 SARS-CoV-2, Influenz a & RSV (PCR) DO Sharmaine Wong Work Phone: Start: 10-23-2022 Endarterectomy CARLA LEIGH Start: 06-22-2022 MRI of head DO Sharmaine Damian-Bennett Work Phone: Start: 06-03-2022 Doppler ultrasonogra phy [...] Screening for malign ant neoplasm of colon [facility] Start: 10-28-2026 Glaucoma screening Diabetes: R etinopathy Screening [facility] Start: 12-26-2025 Screening for malign ant neoplasm of breast Mammogram [facility] Start: 12-25-2025 Urine screening for protein Diabetes: Urine Protein Screening [facility] Start: 09-02-2025 End: 09-02-2025 Patient encounter procedure 09/02/2025 10:15 AM EST Office Visit [facility] [address] [place] [address] Sharmaine Wong, DO [address] [place] [address] [facility] Start: 08-30-2025 Medicare Annual Well ness (AWV) Medicare Annual Wellness (AWV) [facility] Start: 08-01-2025 Hemoglobin A1c measurement Charu betes: Hemoglobin A1C [facility] Start: 06-23-2025 Influenza vaccination Influenz a Vaccine (#1) [facility] Start: 05-01-2025 End: 05-01-2025 Patient encounter procedure 05/01/2025 10:45 AM EDT Office Visit [facility] [address] [place] [address] Sharmaine Wong, DO [address] [place] [address] [facility] Start: 03-27-2025 Hemoglobin A1c measurement Charu betes: Hemoglobin A1C [facility] Start: 12-26-2024 End: 12-26-2024 Patient encounter procedure 12/26/2024 9:30 AM EST Office Visit [facility] [address] [facility] [address] [place] [address] Sharmaine Wong, DO [address] [place] [address] [facility] Start: 12-04-2024 End: 12-04-2024 Patient encounter procedure 12/04/2024 2:40 PM EST Office Visit [facility] [address] [place] [address] Ambrosio Mcghee DPM [address] [address] Plantar fasciitis (Primary Dx); Exostosis of right foot; Contracture of right ankle [facility] Comment on above: Plantar fasciitis (P rimary Dx); Exostosis of right foot; Contracture of right ankle Start: 11-30-2024 Hemoglobin A1c measurement Charu betes: Hemoglobin A1C [facility] Start: 11-23-2024 Glaucoma screening Diabetes: R etinopathy Screening [facility] Start: 11-20-2024 End: 11-20-2024 Patient encounter procedure 11/20/2024 1:30 PM EST Office Visit [facility] [address] [place] [id number] Ambrosio Mcghee DPM [address] [address] [facility] Start: 11-09-2024 Screening for malign ant neoplasm of breast Mammogram [facility] Start: 11-04-2024 End: 11-04-2024 Patient encounter procedure 11/04/2024 10:20 AM EST Office Visit [facility] [address] [place] [id number] Ambrosio Mcghee DPM [address] [address] Exostosis of right foot (Primary Dx); Plantar [...] Well ness (AWV) Medicare Annual Wellness (AWV) [facility] Start: 09-18-2024 Urine screening for protein Diabetes: Urine Protein Screening [facility] Start: 09-03-2024 End: 09-03-2024 Patient encounter procedure 09/03/2024 4:20 PM EST Office Visit [facility] [address] [place] [id number] Ambrosio Mcghee DPM [address] [address] [facility] Start: 05-08-2024 End: 05-08-2024 Patient encounter procedure 05/08/2024 9:45 AM EDT Office Visit [facility] [address] [place] [id number] Sharmaine Wong, [address] [place] [address] [facility] Start: 05-06-2024 [facility] Start: 05-05-2024 [facility] Start: 05-04-2024 MRI of head MR head/brain wo [facility] Start: 05-04-2024 Referral to neurologist [facility] Start: 05-04-2024 [facility] Start: 05-04-2024 Hospital admission [facility] Start: 05-04-2024 Telemedicine consult ation with patient [facility] Start: 05-04-2024 Bacteria identified in Blood by Culture [facility] Start: 05-04-2024 Bacteria identified in Urine by Culture [facility] Start: 05-04-2024 Blood culture for bacteria, including anaerobic screen Blood Culture [facility] Start: 02-29-2024 Hemoglobin A1c measurement Charu betes: Hemoglobin A1C [facility] Start: 10-10-2023 Doppler ultrasonogra phy of bilateral carotid arteries US carotid doppler [facility] Start: 10-10-2023 US.doppler Carotid arteries - [facility] Start: 04-10-2023 Doppler ultrasonogra phy of bilateral carotid arteries US carotid doppler [facility] Start: 04-10-2023 US.doppler Carotid arteries - [facility] Start: 03-31-2023 [facility] Start: 12-23-2022 [facility] Start: 12-22-2022 Hospital admission [facility] Start: 12-22-2022 Sleep disorder assessment [facility] Start: 12-05-2022 Doppler ultrasonogra phy of bilateral carotid arteries US carotid doppler [facility] Start: 12-05-2022 US.doppler Carotid arteries - [facility] Start: 11-11-2022 Plain chest X-ray XR chest 1V portab le [facility] Start: 11-11-2022 XR Chest Single view [facility] Start: 06-22-2022 MRI of head MR head/brain wo con [facility] Start: 06-22-2022 End: 06-22-2022 Patient encounter procedure Departed [facility] [place] Start: 06-10-2022 End: 06-10-2022 Patient encounter procedure Departed [facility] [place] Start: 06-03-2022 Doppler ultrasonogra phy of bilateral carotid arteries US carotid doppler [facility] Start: 06-03-2022 End: 06-03-2022 Patient encounter procedure Departed [facility]Ultrasound [facility] [place] Start: 1950 Screening for malign ant neoplasm of colon [facility] Glucose measurement estimated from glycated hemoglobin [facility] Patient Education [facility] Work Phone: Patient referral [facility] Work Phone: US.doppler Carotid arteries - bilateral [facility] US.doppler Carotid arteries - bilateral [facility] Immunizations Immunization Date Immunization Notes Care Provider Fa callity 08-23-2024 influenza, high dose seasonal, preservative-free Sharmaine Damian-Bland DO Work Phone: [facility] 08-23-2024 influenza virus vacc ine, unspecified formulation Sharmaine Damian-Bland DO Work Phone: [facility] 08-28-2023 influenza virus vacc ine, unspecified formulation CARLA LEIGH [facility] 08-28-2023 Influenza, High-dose Seasonal, Quadrivalent, Preservative Free Sharmaine Damian-Bland DO Work Phone: [facility] 06-30-2022 influenza virus vacc ine, unspecified formulation CARLA LEIGH [facility] 06-30-2022 influenza, high dose seasonal, preservative-free Sharmaine Damian-Bland DO Work Phone: [facility] 09-03-2021 COVID-19 mRNA, Comir falguni (Pfizer) DO Sharmaine Damian-Bland Work Phone: [facility] 09-01-2021 SARS-CoV-2 (COVID-19 ) Ad26 vaccine, recombinant CARLA LEIGH [facility] 08-13-2021 COVID-19 mRNA, Comir falguni (Pfizer) DO Sharmaine Damian-Bland Work Phone: [facility] 07-28-2021 SARS-CoV-2 (COVID-19 ) Ad26 vaccine, recombinant CARLAHurray! [facility] 07-15-2021 influenza virus vacc ine, unspecified formulation CARLA LEIGH [facility] 07-15-2021 influenza, high dose seasonal, preservative-free Sharmaine Damian-Bland DO Work Phone: [facility] 06-30-2021 influenza virus vacc ine, unspecified formulation [facility] 07-31-2020 influenza virus vacc ine, unspecified formulation CARLA LEIGH [facility] 07-31-2020 pneumococcal polysaccharide vaccine, 23 valent CARLA LEIGH [facility] 07-31-2020 Seasonal, trivalent, recombinant, injectable influenza vaccine, preservative free Sharmaine Damian-Bland DO Work Phone: [facility] 07-06-2020 influenza virus vacc ine, unspecified formulation CARLA LEIGH [facility] 12-21-2019 zoster vaccine recombinant CARLA LEIGH [facility] 10-17-2019 zoster vaccine recombinant CARLA LEIGH [facility] 07-01-2019 influenza virus vacc ine, live, attenuated, for intranasal use CARLA LEIGH [facility] 01-28-2019 pneumococcal conjuga te vaccine, 13 valent CARLA LEIGH [facility] 08-10-2018 influenza virus vacc ine, unspecified formulation CARLA JON [facility] 11-02-2017 influenza virus vacc ine, unspecified formulation CARLA JON [facility] 01-20-2016 influenza, seasonal, injectable, preservative free Sharmaine Wong DO Work Phone: [facility] 01-20-2016 varicella virus vaccine ERIC MOREIRA LEIGH [facility] 07-21-2015 influenza virus vacc ine, unspecified formulation CARLA JON [facility] Payers Date Payer Category Payer Self-pay [id number] 2022 Private Health Insurance [employer] [id number] 2022 Unknown [employer] [id number] 2022-Present [address] [place] [address] [id number] 2017 Medicare [id number] 2017 Medicare [id number] 1959 Medicare [id number] 1959 Unknown [id number] 1950 Unknown [id number] 2.16.840.1.192904.3.579.2 .593 1950 Unknown [id number] 2.16.840.1.142330.3.579.2 .727 1950 Unknown [id number] 2.16.840.1.036196.3.579.2 .1259 1950 Unknown [id number] 2.16.840.1.789180.3.579.2 .1259 1950 Unknown [id number] 2.16.840.1.894573.3.579.2 .125 1950 Unknown [id number] 2.16.840.1.563211.3.579.2 .1259 1950 Unknown [id number] 2..840.1.573448.3.579.2 .1259 1952 Unknown [id number] 2.16.840.1.624408.3.579.2 .1259 1952 Unknown [id number] 2..840.1.016792.3.579.2 .1259 1952 Unknown [id number] 2.16.840.1.493711.3.579.2 .1259 1952 Unknown [id number] 2.840.1.216854.3.579.2 .1259 1950 Unknown [id number] 2.16.840.1.501763.3.579.2 .1259 Unknown [facility] [id number] Unknown [id number] 2.16.840.1.869239.3.579.2 .531 Unknown [id number] 2.16.840.1.487859.3.579.2 .531 Unknown [id number] 2.16.840.1.196658.3.579.2 .531 Unknown [id number] 2.16.840.1.177133.3.579.2 .531 Unknown [id number] 2.16.840.1.832260.3.579.2 .531 Social History Date Type Detail Facility Unknown if ever smoked [facility] Work Phone: Start: 12-01-2023 End: 08-30-2024 Sex Assigned At [facility] Start: 02-08-2021 End: 05-09-2025 Tobacco smoking status NHIS Never smoked tobacco (finding) [facility] Start: 1950 Sex Assigned At Female F [facility] Tobacco smoking status Never [facility] Start: 06-04-2023 Tobacco use and exposure Smokeless tobacco non-user [facility] Start: 12-01-2023 End: 05-01-2025 Alcohol intake Lifetime non-drinker (finding) [facility] Start: 12-01-2023 End: 08-30-2024 History of Social function [facility] Start: 06-04-2023 Alcohol Comment caffeine: 1 cu p of coffee a day [facility] Start: 1950 Sex Assigned At Not on file N [facility] Start: 11-05-2024 End: 12-25-2024 Sex Female (finding) [facility] Medical Equipment Procedure Code Equipment Code Equipment Original Text Equipment Identifier Dates Transcarotid artery revascularization (TCAR) Bare-metal carotid artery stent ()[id number] [facility] Start: 12-22-2022 Goals Date Patient Goal Desired Activity /State Functional Status Date Assessment Result Facility 05-07-2024 Functional status Patient at Baseline [facility] Work Phone: 03-28-2024 Functional Status N/A [facility] 03-28-2023 Functional Status N/A [facility] 12-23-2022 Functional status Patient at Baseline [facility] Work Phone: Mental Status Date Assessment Result Facility 05-07-2024 Cognitive function Cognitive Sta tus Patient at Baseline [facility] Work Phone: 12-23-2022 Cognitive function Cognitive Sta tus Patient at Baseline [facility] Work Phone: Clinical Notes 05-31-2022 to 05-09-2025 Sharmaine Wong, - 05/01/2025 11:50 AM EDHillary Wong, DO - 05/01/2025 11:40 AM Ac Wong, - 05/01/2025 11:39 AM EDT Note Date & Type Note Facility 05-09-2025 Hospital Discharge instructions Additional Instructions Rest. Push fluids. Take vopf-nkn-gocscdz Tylenol and Motrin as needed for pain [...] Return here if symptoms persist or worsen. [facility] Work Phone: 05-01-2025 History of Present illness Narrative Associated Problem(s): Carotid stenosis, bilateral Continue with risk factor optimization Associated Problem(s): Hyperlipidemia LDL goal <100 -The importance of dietary modification, regular cardiovascular activity and compliance with any prescribed medication for toy maker management/control of lipids has been discussed. Since [...] choices, regular exercise and weight management) for fdc control of blood pressure. Pt is aware of the increased risk of complications ( for example: stroke, heart failure, heart attack, kidney damage or ) when BP not adequately controlled. -Based on review of medications and current medical status; continuation of medications most appropriate. -Will continue to monitor on current rx Associated Problem(s): Stage 3a chronic kidney disease ([facility]) -Will continue to monitor the renal [...] without long-term current use of insulin ([facility]) -At this appt, I reinforced the importance of dietary modification, routine exercise and weight control for fdc DM management and reduction in risk for [...] were not included. Subjective Patient ID: Sarah Era Alfaro (: 1950) is a 75 y.o. [...] choices, regular exercise and weight management) for fdc control of blood pressure. Pt is aware [...] mg daily! 08/2023 LDL=53 04/2024 LDL=64 12/2024: WZ=407; HDL=60; HB=277; LDL=64; TC/HDL=2.7 Current Assessment & Plan -The [...] modification, routine exercise and weight control for fdc DM management and reduction in risk for [...] total (Completed) Stage 3a chronic kidney disease ([facility]) Overview 04/2024- eGFR stable 10/2024 eGFR=58 [...] 4 months (around 09/01/2025) for MW with ENTRY LEVEL MACHINE OPERATOR and routine appt with me. Sharmaine Wong D.O. Board Certified Motor Block Mechanic documented in this encounter 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 She reports that she had to start [...] of left knee Carotid stenosis, bilateral Dysthymia ([facility]) Essential hypertension ([facility]) Hyperlipidemia LDL goal <100 ([facility]) Type 2 diabetes mellitus with kidney complication, without long-term current use of insulin ([facility]) Primary localized osteoarthrosis of ankle and foot Stage 3a chronic kidney disease (HCC) ([facility]) TIA (transient ischemic attack) Hypocitraturic calcium nephrolithiasis [...] by Vascular Surgery) and statin Essential hypertension ([facility]) - Primary Overview She is prescribed amlodipine and metoprolol Current Assessment & Plan BP continue to do well. Will continue current meds and dosing. Will continue to monitor Hyperlipidemia LDL goal <100 ([facility]) Overview Prescribed atorvastatin. Her LDL improved from 190 to 75 on 80 mg daily! 08/2023 LDL=53 04/2024 LDL=64 12/2024: PB=451; HDL=60; SK=519; LDL=64; TC/HDL=2.7 Current Assessment & Plan -The importance of dietary modification, regular cardiovascular activity and compliance with any prescribed medication for toy maker management/control of lipids has been discussed. Since [...] complication, without long-term current use of insulin ([facility]) Overview Her IFG has progressed to DM [...] modification, routine exercise and weight control for fdc DM management and reduction in risk for [...] exams). Stage 3a chronic kidney disease (HCC) ([facility]) Overview 04/2024- eGFR stable 10/2024 eGFR=58 Current [...] Plan Continue with risk optimization efforts Dysthymia ([facility]) Overview Prescribed escitalopram Current Assessment & Plan [...] monitoring and management of chronic conditions. Sharmaine Wong D.O. Board Certified Motor Block Mechanic documented in this encounterSt. [facility]ukes [facility] [id number] History of Present illness Narrative* Ambrosio Mcghee [...] of kidney stones History of shingles Hyperlipidemia ([facility]) Hypertension ([facility]) 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 Macular degeneration of left eye follows w/ [facility] Migraine headache ([facility]) 09/05/2023 Obesity Plantar fasciitis 11/2022 seen [...] gear Ambrosio Mcghee DPM documented in this encounterSt. Lukes [facility] [id number] History of Present illness Narrative* Ambrosio Mcghee DPM - 11/20/2024 1:30 PM EST Patient: Sarah [...] of kidney stones History of shingles Hyperlipidemia ([facility]) Hypertension ([facility]) 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 Macular degeneration of left eye follows / [facility] [place] Migraine headache ([facility]) 09/05/2023 Obesity Plantar fasciitis 11/2022 seen [...] p.r.n. Ambrosio Mcghee DPM documented in this encounterSt. Lukes Des Peres [id number] History of Present illness Narrative* Ambrosio Mcghee DPM - 11/04/2024 10:20 AM EST Patient: Sarah Alfaro : 1950 PCP: [...] prolonged standing and walking activities. Patient has qyto-xdn-qylvlzq inserts and states continued issues to the [...] of kidney stones History of shingles Hyperlipidemia ([facility]) Hypertension ([facility]) 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 Macular degeneration of left eye follows / [facility] Migraine headache ([facility]) 09/05/2023 Obesity Plantar fasciitis 11/2022 seen [...] risks, alternatives, benefits, post op complications and toy maker expectations were discussed including but not limited to: infection,bone infection,wound dehiscence hardware failure and irritation,wound dehiscence,delay union/mal union/non union of bone. RSDS,neuroma,duty limitations,DVT/PE, SD,nerve damage, scar, loss of sensation, swelling. Pt [...] 2024 Ambrosio Mcghee DPM documented in this encounterSt. Lukes Des Peres [id number] Telephone encounter Note* Telephone Encounter - Lakia Coughlin - 10/29/2024 4:58 PM EST SURGERY 11/13/24 [facility] LABS/EKG - NO APPT REQUIRED PCP Zoya MUÑOZ DEC - LETTER SENT PRE - 11/04/24 @ 10:20AM POST - 11/20/24 @ 1:30PM PATIENT AWARE OF APPT DATES/TIMES. LETTER WITH ALL APPTS MAILED TO PATIENT. MEDICARE/[employer] - NO PRIOR AUTH REQUIRED FOR OUT PATIENT PROCEDURES [facility] [id number] Miscellaneous Notes* Telephone Encounter - Lakia Coughlin - 10/29/2024 4:58 PM EST SURGERY 11/13/24 [facility] LABS/EKG - NO APPT REQUIRED PCP Zoya MUÑOZ DEC - LETTER SENT PRE - 11/04/24 @ 10:20AM POST - 11/20/24 @ 1:30PM PATIENT AWARE OF APPT DATES/TIMES. LETTER WITH ALL APPTS MAILED TO PATIENT. MEDICARE/[place]ANS[place] - NO PRIOR AUTH REQUIRED FOR OUT PATIENT PROCEDURES * Telephone Encounter - Ambrosio Mcghee DPM - 10/01/2024 1:42 PM EST HOSPITAL--[facility] DATE-- October PCP: Sharmaine Wong DO DIAGNOSIS WITH PROCEDURES 1) right midfoot exostosis and right plantar fasciitis with right midfoot exostectomy and right plantar fasciotomy 80922/M89.8X7 andM72.2/98752 Approximate case length:40 min SPECIAL NEEDS FOR CASE-- : PT CRUTCH OR WALKER TRAINING NEEDED? NO WEIGHT BEARING STATUS-- nonweightbearing Hydrocodone [place] Needs x-ray documented in this encounterSt. Lukes Des Peres [id number] Telephone encounter Note* Telephone Encounter - Ambrosio Mcghee DPM - 10/01/2024 1:42 PM EST HOSPITAL--[facility] DATE-- October PCP: Sharmaine Wong DO DIAGNOSIS WITH PROCEDURES 1) right midfoot exostosis and right plantar fasciitis with right midfoot exostectomy and right plantar fasciotomy 62656/M89.8X7 andM72.2/39152 Approximate case length:40 min SPECIAL NEEDS FOR CASE-- : PT CRUTCH OR WALKER TRAINING NEEDED? NO WEIGHT BEARING STATUS-- nonweightbearing Hydrocodone [place] Needs x-ray [facility] Work Phone: 1(619) 404-386712-10-2024 History of Present illness Narrative* Ambrosio Mcghee [...] stones History of shingles Hyperlipidemia (CMS/HCC) Hypertension ([facility]) 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 Macular degeneration of left eye follows / [facility] Migraine headache ([facility]) 09/05/2023 Obesity Plantar fasciitis 11/2022 seen [...] Patient may continue with conservative treatments including gnvq-ctz-znbzmfi anti- inflammatories and other treatments suggested today. [...] pain Ambrosio Mcghee DPM documented in this encounterSt. Lukes Des Peres [id number] History of Present illness Narrative* Ambrosio Mcghee [...] Macular degeneration of left eye follows / [facility] Migraine headache (CMS/HCC) 09/05/2023 Obesity Plantar fasciitis [...] Patient like to purchase Powerstep inserts and yrr-zt-pzfteh cost of 50 dollars which she will pickup tomorrow for her plantar fasciitis type arch pain to the right foot Discussed conservative and surgical treatment options for patient today including postoperative time frame and surgical procedure in detail. Patient may continue with conservative treatments including kfrr-lqa-xdtayem anti- inflammatories and other treatments suggested today. [...] pain Ambrosio Mcghee DPM documented in this encounterSt. Lukes Des Peres HospitalPxlyfojgpx77-59-2090 History of Present illness Narrative* Sharmaine Wong DO - 08/30/2024 10:29 AM ESTAssociated Problem(s): Arthritis of left knee She has F/U scheduled * Sharmaine Wong DO - 08/30/2024 10:28 AM ESTAssociated Problem(s): TIA (transient ischemic attack) Continue risk factor modifications to reduce CV complication risks * Sharmaine Wong DO - 08/30/2024 10:27 AM ESTAssociated Problem(s): Stage 3a chronic kidney disease (HCC) ([facility]) -We will continue to monitor your [...] AM ESTAssociated Problem(s): Hyperlipidemia LDL goal <100 ([facility]) -Reinforced importance of dietary modification, regular cardiovascular activity and compliance withany prescribed medication for fdc management/control of lipids. High cholesterol (especially LDL) is associated with an elevated risk of cardiovascular disease. This includes coronary artery disease. stroke and peripheral vascular disease. High cholesterol has also been linked to diabetes and high blood pressure risks. By appropriately treating LDL, these risks can be reduced. NDA Wong DO - 08/30/2024 10:26 AM ESTAssociated Problem(s): Carotid stenosis, bilateral Continue with risk factor optimization NDA Wong DO - 08/30/2024 10:24 AM ESTAssociated Problem(s): Essential hypertension ([facility]) BP continue to do well. Will continue current meds and dosing. 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 * Sharmaine Wong DO - 08/30/2024 9:30 AM EST Images from the original note were not included. Subjective : Chief Complaint: Sarah Alfaro (: 1950) is an 74 y.o. female here for an annual Medicare Wellness visit. HPI Sarah is being seen today for 4 her month follow up, MWV with ENTRY LEVEL MACHINE OPERATOR and managment of her chronic conditions with [...] nephrolithiasis Macular degeneration of left eye follows jed/ [facility] [place] Migraine headache ([facility]) 09/05/2023 Obesity Plantar fasciitis 11/2022 seen [...] Yes Vision Screening: Yes, patient sees regular industrial economics teacher/technical artist Hearing Screening: Has some hearing loss Cognitive [...] Continue with risk factor optimization Essential hypertension ([facility]) Overview She is prescribed amlodipine and metoprolol Current Assessment & Plan BP continue to do well. Will continue current meds and dosing. Will continue to monitor Hyperlipidemia LDL goal <100 ([facility]) Overview Prescribed atorvastatin. Her LDL improved from 190 to 75 on 80 mg daily! 08/2023 LDL=53 04/2024 LDL=64 Current Assessment & Plan -Reinforced importance of dietary modification, regular cardiovascular activity and compliance withany prescribed medication for fdc management/control of lipids. High cholesterol (especially LDL) is associated with an elevated risk of cardiovascular disease. This includes coronary artery disease. stroke and peripheral vascular disease. High cholesterol has also been linked to diabetes and high blood pressure risks. By appropriately treating LDL, these risks can be reduced. 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 Lukes Des Peres [id number] Discharge summary Author Kameron Pires [facility] May 06, 2024 6:42pm Note Date/Time May 06, 2024 6:37 pm [facility] [address] [place] [address] Discharge Summary Signed Patient: Sarah Alfaro MR#: [id number] : 1950 Acct:[id number] Age/Sex: 74 / F Adm Date: 4 Loc: Room: [address] [place] [address]: Kameron Pires MD Copies to: MD Sharmaine Willett, Providers Date of Discharge: 05/06/24 Discharging Provider: [...] signed by Kameron Pires MD> 05/06/24 [address] [facility] Work Phone: 1(450) 282-350607-15-2024 Progress note Author Kameron Pires [facility] May 06, 2024 5:02pm Note Date/Time May 06, 2024 5:02 pm [facility] [address] [place] [address] Hospitalist Progress Note Signed Patient: Sarah Alfaro MR#: [id number] : 1950 Acct:[id number] Age/Sex: 74 / F Adm Date: 4 Loc: Room: [address] [place] [address] Type: ADM INOo Attending Dr: Kameron Pires [...] daily for DVT prophylaxis. Documented By: Kameron Pries MD 05/06/24 1633 Signed By: <Electronically signed by Kameron Pires MD> 05/06/24 [address] [facility] Work Phone: 1(252) 680-980607-15-2024 Progress note Author Hiren Abrams [facility] May 06, 2024 4:29pm Note Date/Time May 06, 2024 4:29 pm [facility] [address] [place] [address] Neurology Progress Note Signed Patient: Sarah Alfaro MR#: [id number] : 1950 Acct:[id number] Age/Sex: 74 / F Adm Date: 4 Loc: Room: [address] [place] [address] Type: ADM INOo Attending Dr: Kameron Pires [...] Room Air 05/06/24 12:00 05/06/24 12:00 05/06/24 12:05/06/24 12:05/06/24 12:05/06/24 08:00 Narrative: Neurological exam: General: The [...] <Electronically signed by Hiren Abrams DO> 05/06/24 1621 [facility] Work Phone: 1(329) 683-143707-14-2024 Progress note Author Marvin Iglesias [facility] May 05, 2024 1:50pm Note Date/Time May 05, 2024 1:28 pm [facility] [address] [place] [address] Hospitalist Progress Note Signed Patient: Sarah Alfaro MR#: [id number] : 1950 Acct:[id number] Age/Sex: 74 / F Adm Date: 4 Loc: Room: [address] [place] [address] Type: ADM INOo Attending Dr: Marvin Iglesias [...] promoted and sold for pain on various websites,including?[email or web address]://www.Wangluotianxia.Lolabox and possibly in some retail stores. FDA [...] not be taken with certain medications.? Health care professional and consumers should report adverse events or side effects related to the use of this product to FDA's [employer] Safety Information and Adverse Event Reporting Program: [...] <Electronically signed by Marvin Iglesias DO> 05/05/24 [address] [facility] Work Phone: 1(440) 475-751307-14-2024 Consult note Author Julian Diaz [facility] May 05, 2024 10:11am Note Date/Time May 05, 2024 10:1 1am [facility] [address] [place] [address] Neurology Consult Note Signed Patient: Sarah Alfaro MR#: [id number] : 1950 Acct:[id number] Age/Sex: 74 / F Adm Date: 4 Loc: Room: [address] [place] [address] Type: ADM INOo Attending Dr: Marvin Iglesias DO Copies to: DO Sharmaine Mehta DO Steven Benedict, MD~ HPI Consult Date: 05/05/24 Airport Attendant: Julian Diaz MD Reason for consult: Stroke [...] evaluation. The patient was evaluated by the [facility] stroke team and deemed to not be a candidate for thrombolytics. The patient states that her symptoms are back to normal. Review of Systems Review of Systems All other systems reviewed & are negative unless noted below or in HPI [facility] Medical History (Updated 05/04/24 @ 21:25 by [...] 25mcg PO DAILY 12/14/22 [History Confirmed 05/04/24] ejpjokwd-pbdu-gebk 8 mg-folic 400 mcg-K 50 mcg-lutein 300 [...] Ata Samuel M.D.05/04/2024 4:23 PM Dictation Location: [place] [address] Head CTA 05/04/24 16:09 IMPRESSION: There is [...] Ata Samuel M.D.05/04/2024 4:33 PM Dictation Location: [place] [address] Assessment/Plan (1) TIA (transient ischemic attack): Assessment/Problem [...] signed by MD Julian Diaz> 05/05/24 1011 [facility] Work Phone: 1(266) 679-697107-13-2024 History and physical note Author Marvin Iglesias [facility] May 04, 2024 9:30pm Note Date/Time May 04, 2024 9:29 pm [facility] [address] [place] [address] Hospitalist H&P Signed Patient: Sarah Alfaro MR#: [id number] : 1950 Acct:[id number] Age/Sex: 74 / F Adm Date: 4 Loc: Room: 7E4481-0 Type: ADM INOo Attending Dr: Marvin Iglesias [...] The emergency room made contact with the [facility] stroke neurointerventional team who recommended that the [...] the formulation of this which comes from [employer]. I showed the patient and her family [...] and sold for pain on various websites, including?https://www.M-Files and possibly in some retail stores. FDA [...] not be taken with certain medications.? Health care professional and consumers should report adverse events or side effects related to the use of this product to FDA's [employer]et[employer] Safety Information and Adverse Event Reporting Program: I, Dr. Iglesias, did go ahead and complete the [employer]et[employer] Online Voluntary Reporting Form for this incident. Review of Systems Review of Systems Review of systems: 10 systems are reviewed and are negative except as mentioned elsewhere in the documentation. [facility] Medical History (Updated 05/04/24 @ 21:25 by [...] 25mcg PO DAILY 12/14/22 [History Confirmed 05/04/24] vjlndnhz-ehyj-ejea 8 mg-folic 400 mcg-K 50 mcg-lutein 300 [...] % (Auto) 13.3 % (.) 05/04/24 16:10 Dickens % (Auto) 7.6 % (.) 05/04/24 16:10 Eos % (Auto) 1.9 % (.) 05/04/24 16:10 Baso % (Auto) 0.9 % (.) 05/04/24 16:10 Nucleat RBC Rel Count 0.1 /100 WBC (0-0.5) 05/04/24 16:10 Neut # (Auto) 12.5 x10E3/uL (1.8-7.7) H 05/04/24 16:10 Lymph # (Auto) 2.2 x10E3/uL (1.00-4.8) 05/04/24 16:10 Dickens # (Auto) 1.2 x10E3/uL (0.0-0.8) H 05/04/24 [...] pH 5.5 (5.0-9.0) 05/04/24 16:31 Ur Specific [employer] > 1.050 (1.001-1.030) H 05/04/24 16:31 Urine [...] signed by Marvin Iglesias DO> 05/04/242129 [facility] Work Phone: 1(560) 780-609006-06-2024 Hospital Discharge instructions Patient Education 03/28/2024 11:30:43 [...] provider. Document Revised: 02/17/2022 Document Reviewed: 02/17/2022 [employer] Patient Education 2022 [employer]. Follow Up Care 03/28/2023 13:31:18 With:CARLA JON PA-C, URL Address: [address] [place] [place] [address] [phone] When: Unknown Comments:18 mos (no labs) [facility] Noelle 06-06-2024 Note From: Linda Singh To: EU - Administrative; Sent: 03/28/2024 11:53:00 EDT Show up: 12/21/2024 11:52:00 EST Subject: Ambulatory Reminder Due Date/Time: 09/22/2025 11:52:00 EST Reminder/Recall Patient needs scheduled for a 1.5 yr follow up with [facility] when schedules are built that far out. Due in 10/16[facility]02-09-2024 History of Present illness Narrative* Sharmaine Wong DO - 12/01/2023 10:47 AM EST Associated Problem(s): Stage 3a chronic kidney disease (HCC) ([facility]/HCC) -We will continue to monitor your [...] activity and compliance withany prescribed medication for fdc management/control of lipids. High cholesterol (especially LDL) is associated with an elevated risk of cardiovascular disease. This includes coronary artery disease. stroke and peripheral vascular disease. High cholesterol has also been linked to diabetes and high blood pressure risks. By appropriately treating LDL, these risks can be reduced. * Sharmaine Wong DO - 12/01/2023 10:47 AM ESTAssociated Problem(s): Essential hypertension ([facility]/HCC) BP looks good. Continue current medications and [...] had an eye exam in October at [facility], will call for report Findings on eye [...] Carotid stenosis, bilateral Dysthymia (CMS/HCC) Essential hypertension (CMS/[facility]) Hyperlipidemia LDL goal <100 (CMS/[facility]) Type 2 diabetes mellitus with kidney complication, without long-term current use of insulin (HCC) (CMS/[facility]) Primary localized osteoarthrosis of ankle and foot Stage 3a chronic kidney disease (HCC) (CMS/[facility]) TIA (transient ischemic attack) Hypocitraturic calcium nephrolithiasis [...] List Items Addressed This Visit Essential hypertension ([facility]) Overview She is prescribed amlodipine and metoprolol Current Assessment & Plan BP looks good. Continue current medications and monitor Hyperlipidemia LDL goal <100 ([facility]) Overview Prescribed atorvastatin. Her LDL improved from 190 to 75 on 80 mg daily! 08/2023 LDL=53 Current Assessment & Plan -Reinforced importance of dietary modification, regular cardiovascular activity and compliance withany prescribed medication for fdc management/control of lipids. High cholesterol (especially LDL) is associated with an elevated risk of cardiovascular disease. This includes coronary artery disease. stroke and peripheral vascular disease. High cholesterol has also been linked to diabetes and high blood pressure risks. By appropriately treating LDL, these risks can be reduced. Type 2 diabetes mellitus with kidney complication, without long-term current use of insulin ([facility]) ([facility]) - Primary Overview Her IFG has progressed [...] (Completed) Stage 3a chronic kidney disease (HCC) ([facility]) Current Assessment & Plan -We will continue [...] chronic conditions. Sharmaine Wong D.O. Board Certified Motor Block Mechanic documented in this encounterSt. [facility] [id number] Evaluation note* Encounter Date Diagnosis Assessment Notes [...] we will move onto annual follow-up thereafter. [employer] Other 06-19-2023 Evaluation note* Encounter Date Diagnosis [...] the meantime with any issues or concerns. [employer] Other 06-06-2023 Hospital Discharge instructions Patient Education [...] you may eat and drink normally. Take uxim-jba-fdehdrt and prescription medicines only as told by your health care provider. Let your health care provider know about any medicines that you are taking, including plow-awo-fhgfbed medicines, vitamins, herbs, and supplements. Choose a [...] provider. Document Revised: 04/15/2022 Document Reviewed: 04/15/2022 [employer] Patient Education 2022 [employer]. Follow Up Care 03/16/2023 10:27:03 With:ZUNILDA URBINA, Jazmin Barrera, URL Address: [address] [place] [address]- When:1 year [facility] 03-27-2023 Evaluation note* Encounter Date Diagnosis [...] the meantime with any issues or concerns. [employer] Other 08-09-2022 Evaluation note* Encounter Date Diagnosis [...] agrees with this plan, denies any questions. [employer] Other Discharge summary Author Scott Sellers [facility] December 23, 2022 8:30am Note Date/Time December 23, 2022 8:30 am [facility] [address] [place] [address] Discharge Summary Signed Patient: Sarah Alfaro MR#: [id number] : 1950 Acct:[id number] Age/Sex: 72 / F Adm Date: 3 Loc: Room: [address] [place] [address]: Scott Sellers MD Copies to: [...] by MD Scott Sellers> 12/23/22 [address] [facility] Work Phone: Evaluation + Plan note Future Appointments Appointment Date:03/28/2024 11:00:00 AM Scheduled Provider:CARLA JON PA-C Location:[facility] Appointment Type:URO Office Visit [facility] evaluation + Plan note Future Appointments Appointment Date:03/28/2024 11:00:00 AM Scheduled Provider:CARLA JON PA-C Location:[facility] Appointment Type:URO Office Visit Diagnostic Tests Pending * [facility] Work Phone: Evaluwahiv noteNo InformationNort [employer] Other Evaluhqjgh note* Diagnosis Type 2 diabetes mellitus with stage 3a chronic kidney disease, without long-term current use of insulin (HCC) ([facility]/HCC)- Primary Stage 3a chronic kidney disease (HCC) (CMS/HCC) Hyperlipidemia LDL goal <100 (CMS/HCC) Other and unspecified hyperlipidemia Essential hypertension ([facility]/HCC) Unspecified essential hypertension BMI 28.0-28.9,adult Viral upper respiratory tract infection Acute upper respiratory infections of unspecified site documented in this encounter [facility]* Diagnosis Onset Date Resolution Status Carotid stenosis, bilateral acute Non-smoker acute [facility] Work Phone: Evaluation note* Diagnosis Onset Date Resolution Status Carotid stenosis, bilateral acute Non-smoker acute Accelerated hypertension acu te Arthritis acute Carotid stenosis, bilateral acute Hypercholesteremia acute Hypertension acute Poisoning by vitamins, accid ental (unintentional), initial encounter acute TIA (transient ischemic attack) acute Transient cerebral ischemia acute [facility] Work Phone: Evaluation note* Diagnosis Essential hypertension (CMS/HCC)- Primary Unspecified [...] infarction Stage 3a chronic kidney disease (HCC) ([facility]) Medicare annual wellness visit, subsequent- Primary ACP (advance care planning) Other specified counseling Type 2 diabetes mellitus with stage 3a chronic kidney disease, without long-term current use of insulin (HCC) ([facility]) Essential hypertension ([facility]) Unspecified essential hypertension Carotid stenosis, bilateral Occlusion and stenosis of carotid artery without mention of cerebral infarction Hyperlipidemia LDL goal <100 ([facility]) Other and unspecified hyperlipidemia Arthritis of left knee Stage 3a chronic kidney disease (HCC) ([facility]) TIA (transient ischemic attack) Unspecified transient cerebral ischemia BMI 29.0-29.9,adult documented in this encounter [facility]* Diagnosis Essential hypertension ([facility])- Primary Unspecified essential hypertension Hyperlipidemia LDL goal <100 ([facility]) Other and unspecified hyperlipidemia IFG (impaired fasting glucose) Stage 3a chronic kidney disease (HCC) ([facility]) Hypocitraturic calcium nephrolithiasis Calculus of kidney Hyponatremia Hyposmolality and/or hyponatremia Primary hypertension ([facility]) Unspecified essential hypertension Bilateral hearing loss, unspecified hearing loss type BMI 31.0-31.9,adult Medicare annual wellness visit, subsequent- Primary ACP (advance care planning) Other specified counseling Class 1 obesity BMI 30.0-30.9,adult Type 2 diabetes mellitus with stage 3a chronic kidney disease, without long-term current use of insulin (HCC) ([facility]) Hypocitraturic calcium nephrolithiasis Calculus of kidney Stage 3a chronic kidney disease (HCC) ([facility]) Essential hypertension ([facility]) Unspecified essential hypertension Hyperlipidemia LDL goal <100 ([facility]) Other and unspecified hyperlipidemia Carotid stenosis, bilateral Occlusion and stenosis of carotid artery without mention of cerebral infarction Dysthymia ([facility]) Dysthymic disorder Encounter for screening mammogram for malignant neoplasm of breast Type 2 diabetes mellitus with stage 3a chronic kidney disease, without long-term current use of insulin (HCC) ([facility])- Primary Stage 3a chronic kidney disease (HCC) ([facility]) Hyperlipidemia LDL goal <100 ([facility]/HCC) Other and unspecified hyperlipidemia Essential hypertension ([facility]) Unspecified essential hypertension BMI 28.0-28.9,adult Viral upper respiratory tract infection Acute upper respiratory infections of unspecified site TIA (transient ischemic attack)- Primary Unspecified transient cerebral ischemia Hospital discharge follow-up Other follow-up examination Type 2 diabetes mellitus with stage 3a chronic kidney disease, without long-term current use of insulin (HCC) ([facility]) Essential hypertension ([facility]) Unspecified essential hypertension Hyperlipidemia LDL goal <100 ([facility]/HCC) Other and unspecified hyperlipidemia Carotid stenosis, bilateral Occlusion and stenosis of carotid artery without mention of cerebral infarction Stage 3a chronic kidney disease (HCC) ([facility]) Medicare annual wellness visit, subsequent- Primary ACP (advance care planning) Other specified counseling Type 2 diabetes mellitus with stage 3a chronic kidney disease, without long-term current use of insulin (HCC) ([facility]) Essential hypertension ([facility]) Unspecified essential hypertension Carotid stenosis, bilateral Occlusion and stenosis of carotid artery without mention of cerebral infarction Hyperlipidemia LDL goal <100 ([facility]) Other and unspecified hyperlipidemia Arthritis of left knee Stage 3a chronic kidney disease (HCC) ([facility]) TIA (transient ischemic attack) Unspecified transient cerebral ischemia BMI 29.0-29.9,adult Exostosis of right foot- Primary Plantar fasciitis Plantar fascial fibromatosis documented in this encounter [facility] HealthcareEvaluation note* Diagnosis Essential hypertension ([facility])- Primary Unspecified essential hypertension Hyperlipidemia LDL goal <100 ([facility]) Other and unspecified hyperlipidemia IFG (impaired fasting glucose) Stage 3a chronic kidney disease (HCC) ([facility]) Hypocitraturic calcium nephrolithiasis Calculus of kidney Hyponatremia Hyposmolality and/or hyponatremia Primary hypertension ([facility]) Unspecified essential hypertension Bilateral hearing loss, unspecified hearing loss type BMI 31.0-31.9,adult Medicare annual wellness visit, subsequent- Primary ACP (advance care planning) Other specified counseling Class 1 obesity BMI 30.0-30.9,adult Type 2 diabetes mellitus with stage 3a chronic kidney disease, without long-term current use of insulin (HCC) ([facility]) Hypocitraturic calcium nephrolithiasis Calculus of kidney Stage 3a chronic kidney disease (HCC) ([facility]) Essential hypertension ([facility]) Unspecified essential hypertension Hyperlipidemia LDL goal <100 ([facility]/HCC) Other and unspecified hyperlipidemia Carotid stenosis, bilateral Occlusion and stenosis of carotid artery without mention of cerebral infarction Dysthymia ([facility]) Dysthymic disorder Encounter for screening mammogram for malignant neoplasm of breast Type 2 diabetes mellitus with stage 3a chronic kidney disease, without long-term current use of insulin (HCC) ([facility])- Primary Stage 3a chronic kidney disease (HCC) ([facility]) Hyperlipidemia LDL goal <100 ([facility]/HCC) Other and unspecified hyperlipidemia Essential hypertension ([facility]/HCC) Unspecified essential hypertension BMI 28.0-28.9,adult Viral upper respiratory tract infection Acute upper respiratory infections of unspecified site TIA (transient ischemic attack)- Primary Unspecified transient cerebral ischemia Hospital discharge follow-up Other follow-up examination Type 2 diabetes mellitus with stage 3a chronic kidney disease, without long-term current use of insulin (HCC) ([facility]) Essential hypertension ([facility]) Unspecified essential hypertension Hyperlipidemia LDL goal <100 ([facility]/HCC) Other and unspecified hyperlipidemia Carotid stenosis, bilateral Occlusion and stenosis of carotid artery without mention of cerebral infarction Stage 3a chronic kidney disease (HCC) ([facility]) Medicare annual wellness visit, subsequent- Primary ACP (advance care planning) Other specified counseling Type 2 diabetes mellitus with stage 3a chronic kidney disease, without long-term current use of insulin (HCC) ([facility]) Essential hypertension ([facility]) Unspecified essential hypertension Carotid stenosis, bilateral Occlusion and stenosis of carotid artery without mention of cerebral infarction Hyperlipidemia LDL goal <100 ([facility]/HCC) Other and unspecified hyperlipidemia Arthritis of left knee Stage 3a chronic kidney disease (HCC) ([facility]) TIA (transient ischemic attack) Unspecified transient cerebral ischemia BMI 29.0-29.9,adult Exostosis of right foot- Primary Plantar fasciitis Plantar fascial fibromatosis documented in this encounter [facility] HealthcareEvaluation note* Diagnosis Essential hypertension ([facility])- Primary Unspecified essential hypertension Hyperlipidemia LDL goal <100 ([facility]/HCC) Other and unspecified hyperlipidemia IFG (impaired fasting glucose) Stage 3a chronic kidney disease (HCC) ([facility]) Hypocitraturic calcium nephrolithiasis Calculus of kidney Hyponatremia Hyposmolality and/or hyponatremia Primary hypertension ([facility]) Unspecified essential hypertension Bilateral hearing loss, unspecified hearing loss type BMI 31.0-31.9,adult Medicare annual wellness visit, subsequent- Primary ACP (advance care planning) Other specified counseling Class 1 obesity BMI 30.0-30.9,adult Type 2 diabetes mellitus with stage 3a chronic kidney disease, without long-term current use of insulin (HCC) ([facility]/HCC) Hypocitraturic calcium nephrolithiasis Calculus of kidney Stage 3a chronic kidney disease (HCC) ([facility]/HCC) Essential hypertension ([facility]/HCC) Unspecified essential hypertension Hyperlipidemia LDL goal <100 ([facility]/HCC) Other and unspecified hyperlipidemia Carotid stenosis, bilateral Occlusion and stenosis of carotid artery without mention of cerebral infarction Dysthymia ([facility]) Dysthymic disorder Encounter for screening mammogram for malignant neoplasm of breast Type 2 diabetes mellitus with stage 3a chronic kidney disease, without long-term current use of insulin (HCC) ([facility]/HCC)- Primary Stage 3a chronic kidney disease (HCC) ([facility]) Hyperlipidemia LDL goal <100 ([facility]/HCC) Other and unspecified hyperlipidemia Essential hypertension ([facility]/HCC) Unspecified essential hypertension BMI 28.0-28.9,adult Viral upper respiratory tract infection Acute upper respiratory infections of unspecified site TIA (transient ischemic attack)- Primary Unspecified transient cerebral ischemia Hospital discharge follow-up Other follow-up examination Type 2 diabetes mellitus with stage 3a chronic kidney disease, without long-term current use of insulin (HCC) ([facility]) Essential hypertension ([facility]) Unspecified essential hypertension Hyperlipidemia LDL goal <100 ([facility]/HCC) Other and unspecified hyperlipidemia Carotid stenosis, bilateral Occlusion and stenosis of carotid artery without mention of cerebral infarction Stage 3a chronic kidney disease (HCC) ([facility]) Medicare annual wellness visit, subsequent- Primary ACP (advance care planning) Other specified counseling Type 2 diabetes mellitus with stage 3a chronic kidney disease, without long-term current use of insulin (HCC) ([facility]) Essential hypertension ([facility]) Unspecified essential hypertension Carotid stenosis, bilateral Occlusion and stenosis of carotid artery without mention of cerebral infarction Hyperlipidemia LDL goal <100 ([facility]/HCC) Other and unspecified hyperlipidemia Arthritis of left knee Stage 3a chronic kidney disease (HCC) ([facility]/HCC) TIA (transient ischemic attack) Unspecified transient cerebral ischemia BMI 29.0-29.9,adult Exostosis of right foot- Primary Plantar fasciitis Plantar fascial fibromatosis Contracture of right ankle documented in this encounter [facility] HealthcareEvaluation note* Diagnosis Essential hypertension (CMS/HCC)- Primary Unspecified essential hypertension Hyperlipidemia LDL goal <100 ([facility]/HCC) Other and unspecified hyperlipidemia IFG (impaired fasting glucose) Stage 3a chronic kidney disease (HCC) ([facility]) Hypocitraturic calcium nephrolithiasis Calculus of kidney Hyponatremia Hyposmolality and/or hyponatremia Primary hypertension ([facility]) Unspecified essential hypertension Bilateral hearing loss, unspecified hearing loss type BMI 31.0-31.9,adult Medicare annual wellness visit, subsequent- Primary ACP (advance care planning) Other specified counseling Class 1 obesity BMI 30.0-30.9,adult Type 2 diabetes mellitus with stage 3a chronic kidney disease, without long-term current use of insulin (HCC) ([facility]) Hypocitraturic calcium nephrolithiasis Calculus of kidney Stage 3a chronic kidney disease (HCC) ([facility]) Essential hypertension ([facility]) Unspecified essential hypertension Hyperlipidemia LDL goal <100 ([facility]) Other and unspecified hyperlipidemia Carotid stenosis, bilateral Occlusion and stenosis of carotid artery without mention of cerebral infarction Dysthymia ([facility]) Dysthymic disorder Encounter for screening mammogram for malignant neoplasm of breast Type 2 diabetes mellitus with stage 3a chronic kidney disease, without long-term current use of insulin (HCC) ([facility])- Primary Stage 3a chronic kidney disease (HCC) ([facility]) Hyperlipidemia LDL goal <100 ([facility]/HCC) Other and unspecified hyperlipidemia Essential hypertension ([facility]) Unspecified essential hypertension BMI 28.0-28.9,adult Viral upper respiratory tract infection Acute upper respiratory infections of unspecified site TIA (transient ischemic attack)- Primary Unspecified transient cerebral ischemia Hospital discharge follow-up Other follow-up examination Type 2 diabetes mellitus with stage 3a chronic kidney disease, without long-term current use of insulin (HCC) ([facility]) Essential hypertension ([facility]) Unspecified essential hypertension Hyperlipidemia LDL goal <100 ([facility]/HCC) Other and unspecified hyperlipidemia Carotid stenosis, bilateral Occlusion and stenosis of carotid artery without mention of cerebral infarction Stage 3a chronic kidney disease (HCC) ([facility]) Medicare annual wellness visit, subsequent- Primary ACP (advance care planning) Other specified counseling Type 2 diabetes mellitus with stage 3a chronic kidney disease, without long-term current use of insulin (HCC) ([facility]) Essential hypertension ([facility]) Unspecified essential hypertension Carotid stenosis, bilateral Occlusion and stenosis of carotid artery without mention of cerebral infarction Hyperlipidemia LDL goal <100 ([facility]/HCC) Other and unspecified hyperlipidemia Arthritis of left knee Stage 3a chronic kidney disease (HCC) ([facility]) TIA (transient ischemic attack) Unspecified transient cerebral ischemia BMI 29.0-29.9,adult Exostosis of right foot- Primary Plantar fasciitis Plantar fascial fibromatosis Contracture of right ankle documented in this encounter [facility] HealthcareEvaluation note* Diagnosis Essential hypertension ([facility]/HCC)- Primary Unspecified essential hypertension Hyperlipidemia LDL goal <100 ([facility]/HCC) Other and unspecified hyperlipidemia IFG (impaired fasting glucose) Stage 3a chronic kidney disease (HCC) ([facility]) Hypocitraturic calcium nephrolithiasis Calculus of kidney Hyponatremia Hyposmolality and/or hyponatremia Primary hypertension ([facility]) Unspecified essential hypertension Bilateral hearing loss, unspecified hearing loss type BMI 31.0-31.9,adult Medicare annual wellness visit, subsequent- Primary ACP (advance care planning) Other specified counseling Class 1 obesity BMI 30.0-30.9,adult Type 2 diabetes mellitus with stage 3a chronic kidney disease, without long-term current use of insulin (HCC) ([facility]) Hypocitraturic calcium nephrolithiasis Calculus of kidney Stage 3a chronic kidney disease (HCC) ([facility]) Essential hypertension ([facility]/HCC) Unspecified essential hypertension Hyperlipidemia LDL goal <100 ([facility]/HCC) Other and unspecified hyperlipidemia Carotid stenosis, bilateral Occlusion and stenosis of carotid artery without mention of cerebral infarction Dysthymia ([facility]) Dysthymic disorder Encounter for screening mammogram for malignant neoplasm of breast Type 2 diabetes mellitus with stage 3a chronic kidney disease, without long-term current use of insulin (HCC) ([facility])- Primary Stage 3a chronic kidney disease (HCC) ([facility]) Hyperlipidemia LDL goal <100 ([facility]/HCC) Other and unspecified hyperlipidemia Essential hypertension ([facility]) Unspecified essential hypertension BMI 28.0-28.9,adult Viral upper respiratory tract infection Acute upper respiratory infections of unspecified site TIA (transient ischemic attack)- Primary Unspecified transient cerebral ischemia Hospital discharge follow-up Other follow-up examination Type 2 diabetes mellitus with stage 3a chronic kidney disease, without long-term current use of insulin (HCC) ([facility]) Essential hypertension ([facility]) Unspecified essential hypertension Hyperlipidemia LDL goal <100 ([facility]/HCC) Other and unspecified hyperlipidemia Carotid stenosis, bilateral Occlusion and stenosis of carotid artery without mention of cerebral infarction Stage 3a chronic kidney disease (HCC) ([facility]) Medicare annual wellness visit, subsequent- Primary ACP (advance care planning) Other specified counseling Type 2 diabetes mellitus with stage 3a chronic kidney disease, without long-term current use of insulin (HCC) ([facility]/HCC) Essential hypertension ([facility]/HCC) Unspecified essential hypertension Carotid stenosis, bilateral Occlusion and stenosis of carotid artery without mention of cerebral infarction Hyperlipidemia LDL goal <100 (CMS/HCC) Other and unspecified hyperlipidemia Arthritis of left knee Stage 3a chronic kidney disease (HCC) ([facility]) TIA (transient ischemic attack) Unspecified transient cerebral ischemia BMI 29.0-29.9,adult Plantar fasciitis- Primary Plantar fascial fibromatosis Exostosis of right foot Contracture of right ankle documented in this encounter [facility] HealthcareEvaluation note* Diagnosis Essential hypertension (CMS/HCC)- Primary Unspecified essential hypertension Hyperlipidemia LDL goal <100 ([facility]/HCC) Other and unspecified hyperlipidemia IFG (impaired fasting glucose) Stage 3a chronic kidney disease (HCC) ([facility]) Hypocitraturic calcium nephrolithiasis Calculus of kidney Hyponatremia Hyposmolality and/or hyponatremia Primary hypertension ([facility]) Unspecified essential hypertension Bilateral hearing loss, unspecified hearing loss type BMI 31.0-31.9,adult Medicare annual wellness visit, subsequent- Primary ACP (advance care planning) Other specified counseling Class 1 obesity BMI 30.0-30.9,adult Type 2 diabetes mellitus with stage 3a chronic kidney disease, without long-term current use of insulin (HCC) ([facility]) Hypocitraturic calcium nephrolithiasis Calculus of kidney Stage 3a chronic kidney disease (HCC) ([facility]) Essential hypertension ([facility]) Unspecified essential hypertension Hyperlipidemia LDL goal <100 ([facility]/HCC) Other and unspecified hyperlipidemia Carotid stenosis, bilateral Occlusion and stenosis of carotid artery without mention of cerebral infarction Dysthymia ([facility]) Dysthymic disorder Encounter for screening mammogram for malignant neoplasm of breast Type 2 diabetes mellitus with stage 3a chronic kidney disease, without long-term current use of insulin (HCC) ([facility]/HCC)- Primary Stage 3a chronic kidney disease (HCC) ([facility]/HCC) Hyperlipidemia LDL goal <100 ([facility]/HCC) Other and unspecified hyperlipidemia Essential hypertension ([facility]/HCC) Unspecified essential hypertension BMI 28.0-28.9,adult Viral upper respiratory tract infection Acute upper respiratory infections of unspecified site TIA (transient ischemic attack)- Primary Unspecified transient cerebral ischemia Hospital discharge follow-up Other follow-up examination Type 2 diabetes mellitus with stage 3a chronic kidney disease, without long-term current use of insulin (HCC) ([facility]) Essential hypertension ([facility]) Unspecified essential hypertension Hyperlipidemia LDL goal <100 ([facility]) Other and unspecified hyperlipidemia Carotid stenosis, bilateral Occlusion and stenosis of carotid artery without mention of cerebral infarction Stage 3a chronic kidney disease (HCC) ([facility]) Medicare annual wellness visit, subsequent- Primary ACP (advance care planning) Other specified counseling Type 2 diabetes mellitus with stage 3a chronic kidney disease, without long-term current use of insulin (HCC) ([facility]) Essential hypertension ([facility]) Unspecified essential hypertension Carotid stenosis, bilateral Occlusion and stenosis of carotid artery without mention of cerebral infarction Hyperlipidemia LDL goal <100 ([facility]) Other and unspecified hyperlipidemia Arthritis of left knee Stage 3a chronic kidney disease (HCC) ([facility]) TIA (transient ischemic attack) Unspecified transient cerebral ischemia BMI 29.0-29.9,adult Essential hypertension ([facility])- Primary Unspecified essential hypertension Hyperlipidemia LDL goal <100 ([facility]) Other and unspecified hyperlipidemia Type 2 diabetes mellitus with stage 3a chronic kidney disease, without long-term current use of insulin (HCC) ([facility]) Carotid stenosis, bilateral Occlusion and stenosis of carotid artery without mention of cerebral infarction Stage 3a chronic kidney disease (HCC) ([facility]) TIA (transient ischemic attack) Unspecified transient cerebral ischemia Dysthymia ([facility]) Dysthymic disorder Encounter for screening mammogram for malignant neoplasm of breast Arthritis Unspecified arthropathy, site unspecified Encounter for screening mammogram for malignant neoplasm of breast documented in this encounter [facility] HealthcareEvaluation note* Diagnosis Essential hypertension- Primary Unspecified essential hypertension Hyperlipidemia LDL goal <100 Other and unspecified hyperlipidemia IFG (impaired fasting glucose) Stage 3a chronic kidney disease ([facility]) Hypocitraturic calcium nephrolithiasis Calculus of kidney Hyponatremia Hyposmolality and/or hyponatremia Primary hypertension Unspecified essential hypertension Bilateral hearing loss, unspecified hearing loss type BMI 31.0-31.9,adult Medicare annual wellness visit, subsequent- Primary ACP (advance care planning) Other specified counseling Class 1 obesity BMI 30.0-30.9,adult Type 2 diabetes mellitus with stage 3a chronic kidney disease, without long-term current use of insulin ([facility]) Hypocitraturic calcium nephrolithiasis Calculus of kidney Stage 3a chronic kidney disease ([facility]) Essential hypertension Unspecified essential hypertension Hyperlipidemia LDL goal <100 Other and unspecified hyperlipidemia Carotid stenosis, bilateral Occlusion and stenosis of carotid artery without mention of cerebral infarction Dysthymia Dysthymic disorder Encounter for screening mammogram for malignant neoplasm of breast Type 2 diabetes mellitus with stage 3a chronic kidney disease, without long-term current use of insulin (HCC)- Primary Stage 3a chronic kidney disease ([facility]) Hyperlipidemia LDL goal <100 Other and unspecified [...] cerebral infarction Stage 3a chronic kidney disease ([facility]) Medicare annual wellness visit, subsequent- Primary ACP [...] left knee Stage 3a chronic kidney disease ([facility]) TIA (transient ischemic attack) Unspecified transient cerebral ischemia BMI 29.0-29.9,adult Essential hypertension- Primary Unspecified essential hypertension Hyperlipidemia LDL goal <100 Other and unspecified hyperlipidemia Type 2 diabetes mellitus with stage 3a chronic kidney disease, without long-term current use of insulin (HCC) Carotid stenosis, bilateral Occlusion and stenosis of carotid artery without mention of cerebral infarction Stage 3a chronic kidney disease ([facility]) TIA (transient ischemic attack) Unspecified transient cerebral ischemia Dysthymia Dysthymic disorder Encounter for screening mammogram for malignant neoplasm of breast Arthritis Unspecified arthropathy, site unspecified Type 2 diabetes mellitus with stage 3a chronic kidney disease, without long-term current use of insulin (HCC)- Primary Stage 3a chronic kidney disease ([facility]) Essential hypertension Unspecified essential hypertension Hyperlipidemia LDL goal <100 Other and unspecified hyperlipidemia Carotid stenosis, bilateral Occlusion and stenosis of carotid artery without mention of cerebral infarction documented in this encounter [facility] HealthcareHistory and physical note Author Marvin Iglesias [facility] May 04, 2024 9:30pm Note Date/Time May 04, 2024 9:29 pm [facility] [address] [place] [address] Hospitalist H&P Signed Patient: Sarah Alfaro MR#: [id number] : 1950 Acct:[id number] Age/Sex: 74 / F Adm Date: 4 Loc: Room: [address] [place] [address] Type: ADM INOo Attending Dr: Marvin Iglesias [...] The emergency room made contact with the [facility] stroke neurointerventional team who recommended that the [...] the formulation of this which comes from [employer]. I showed the patient and her family [...] and sold for pain on various websites, including?[email or web address].Lolabox and possibly in some retail stores. FDA [...] not be taken with certain medications.? Health care professional and consumers should report adverse events or side effects related to the use of this product to FDA's [employer] Safety Information and Adverse Event Reporting Program: I, Dr. Iglesias, did go ahead and complete the [employer] Voluntary Reporting Form for this incident. Review of Systems Review of Systems Review of systems: 10 systems are reviewed and are negative except as mentioned elsewhere in the documentation. [facility] Medical History (Updated 05/04/24 @ 21:25 by [...] 25mcg PO DAILY 12/14/22 [History Confirmed 05/04/24] [id number] 8 mg-folic 400 mcg-K 50 mcg-lutein 300 [...] % (Auto) 13.3 % (.) 05/04/24 16:10 Dickens % (Auto) 7.6 % (.) 05/04/24 16:10 Eos % (Auto) 1.9 % (.) 05/04/24 16:10 Baso % (Auto) 0.9 % (.) 05/04/24 16:10 Nucleat RBC Rel Count 0.1 /100 WBC (0-0.5) 05/04/24 16:10 Neut # (Auto) 12.5 x10E3/uL (1.8-7.7) H 05/04/24 16:10 Lymph # (Auto) 2.2 x10E3/uL (1.00-4.8) 05/04/24 16:10 Dickens # (Auto) 1.2 x10E3/uL (0.0-0.8) H 05/04/24 [...] pH 5.5 (5.0-9.0) 05/04/24 16:31 Ur Specific [employer] > 1.050 (1.001-1.030) H 05/04/24 16:31 Urine [...] <Electronically signed by Marvin Iglesias DO> 05/04/242129 [facility] Work Phone: History general Narrative - Reported* Type Description Date Medical History HYPERTENSION Medical History GENERALIZED ARTHRITIS Medical History KIDNEY STONES Medical History MACULAR DEGENERATION Medical History CAROTID STENOSIS Surgical History LITHOTRIPSY X3 Surgical History HYSTERECTOMY Surgical History CHOLECYSTECTOMY Surgical History TONSILLECTOMY Surgical History CATARACT SUGERY (BILAT) Hospitalization History kidney stones/ Infection x1 week stay 1994 Hospitalization History TIA 01/2021 [facility] Other Hisrgtl general Narrative - Reported* Type Description Date Medical History HYPERTENSION Medical History GENERALIZED ARTHRITIS Medical History KIDNEY STONES Medical History MACULAR DEGENERATION Medical History CAROTID STENOSIS Surgical History LITHOTRIPSY X3 Surgical History HYSTERECTOMY Surgical History CHOLECYSTECTOMY Surgical History TONSILLECTOMY Surgical History CATARACT SUGERY (BILAT) Surgical History Eyelid Lift Hospitalization History kidney stones/ Infection x1 week stay 1994 Hospitalization History TIA 01/2021 [facility] Other Hisdelx general Narrative - Reported* Type Description Date [...] week stay 1994 Hospitalization History TIA 01/2021 [facility] Other Hisdgio general Narrative - Reported* Type Description Date [...] week stay 1994 Hospitalization History TIA 01/2021 [facility] Other Hospital course Narrative No data available for this section [facility] Hospital Discharge instructions Additional Instructions If your symptoms return/worsen or you develop any further concerns or symptoms please see your doctor or return to the emergency department immediately.[facility] Work Phone: Hospital Discharge instructions No data available for this section [facility] No data available for this section [facility] reason for referral (narrative)No reason for referral [facility] Work Phone: Summary Purpose Family History No [...] 2024 1 :57pm Chief Complaint Admit Date November 04, 2024 1 0:53am Pre op November 08, 2024 1 :57pm e11.22 n18.31 e78.5 i10 z51.81 December 9:54am Chief Complaint Admit Date 1 YR FOLLOW UP; CAROTID 11A April 15 025 11:05am L leg pain May 09, 2025 2:52 pm Reason for Visit Admit Date Carotid stenosis, bilateral April 15 11:05am Non-smoker April 15, 2025 11:0 5am Additional Source Comments INFORMATION SOURCE (unrecogn ized section and content) DATE CREATED AUTHOR 12/11/2020 [facility] DATE CREATED AUTHOR AUTHOR'S ORGANIZ ATION 02/23/2022 [facility] DATE CREATED AUTHOR AUTHOR'S ORGANIZ ATION 03/29/2024 [facility] DATE CREATED AUTHOR AUTHOR'S ORGANIZ ATION 05/05/2025 [facility] EPIC DATE CREATED AUTHOR AUTHOR'S ORGANIZ ATION 05/31/2025 [facility] REASON FOR VISIT (unrecogniz ed section and content) Reason Comments Routine 3 Mo Follow-up Reason Comments Medicare Annual Wellness Visit Subsequen t 4 month follow up Reason Comments Plantar Fasciitis PF F/U Reason Comments Follow-up 1M HEEL SPUR CHECK Reason Onset Date Comments Procedure 10/01/2024 Surgery in [facility] ry Reason Comments Consent Or Instructions Pre [...] Wong , DO Primary Care Provider Active Carissa Dias NP-C Attending Provider Active Team Status: Inactive Member Role Status Dates Sharmaine Wong , DO Primary Care Provider, Attend ing Provider Active Team Status: Inactive Member Role Status Dates Sharmaine Rodriguezy , DO Primary Care Provider Active My Alvarado PA-C Attending Provider Active Team Status: Active Member Role Status Dates Sharmaine Rodriguezy , DO Primary Care Provider Active Team Status: Inactive Member Role Status Dates Sharmaine Rodriguezy , DO Primary Care Provider Active Delfino Goncalves , DO Emergency Provider Active Team Status: Inactive Member Role Status Dates Sharmaine Rodriguezy , DO Primary Care Provider Active Christiano Murillo MD Attending Provider Active Team Status: Inactive Member Role Status Dates Sharmaine RickieZoyaBland , DO Primary Care Provider Active Scott Sellers MD Attending Provider Active Team Status: Inactive Member Role Status Dates Sharmaine Rodriguezy , DO Primary Care Provider Active Scott Sellers MD Admit Provider, Attending Provide r Active Team Status: Inactive Member Role Status Sharmaine Rodriguezy , DO Primary Care Provider Active Zeus Dolan MD Attending Provider Active 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 Relationship Specialty Start Date End Date DamianZoyaSharmaine Sanches DO [address] [place] [address] PCP - ACO Reach 03/16/23 Sharmaine Wong DO [address] [facility] [address] [place] [address] PCP - General Internal Medicine 12/01/23 Dax De Oliveira MD [address] [place] [address] Referring Physician Ophthalmology 09/20/23 Jazmin Mauro MD [address] [place] [address] Referring Physician Urology 09/20/23 Scott Sellers MD 7[address] [facility] [address] [place] [phone] Referring Physician Vascular Surgery 09/20/23 Team Status: [...] May 04, 2024 End: May 07, 2024 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 Relationship Specialty Start Date End Date Sharmaine Wong DO [address] [place] [address] PCP - ACO Reach 03/16/23 Sharmaine Wong DO [address] [place] [address] PCP - General Internal Medicine 12/01/23 Dax De Oliveira MD [address] [place] [address] Referring Physician Ophthalmology 09/20/23 Jazmin Mauro MD [address] [place] [address] Referring Physician Urology 09/20/23 Scott Sellers MD [address] [address] Referring Physician Vascular Surgery 09/20/23 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 Relationship Specialty Start Date End Date Sharmaine Wong DO [address] [facility] [address] [place] [address] PCP - ACO Reach 03/16/23 Sharmaine Wong DO [address] [facility] [address] [place] [address] PCP - General Internal Medicine 12/01/23 Dax De Oliveira MD [address] [place] [address] Referring Physician Ophthalmology 09/20/23 Jazmin Mauro MD [address] [place] [place] [address] Referring Physician Urology 09/20/23 Scott Sellers MD [address] [address] Referring Physician Vascular Surgery 09/20/23 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 Relationship Specialty Start Date End Date Sharmaine Wong DO [address] [place] [address] PCP - ACO Reach 03/16/23 Sharmaine Wong DO [address] [place] [address] PCP - General Internal Medicine 12/01/23 Dax De Oliveira MD [address] [place] [address] Referring Physician Ophthalmology 09/20/23 Jazmin Mauro MD [address] [facility] [place] [address] Referring Physician Urology 09/20/23 Scott Sellers MD [address] [place] [address] [place] [phone] Referring Physician Vascular Surgery 09/20/23 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 Relationship Specialty Start Date End Date Sharmaine Wong DO [address] [place] [address] PCP - ACO Reach 03/16/23 Sharmaine Wong DO [address] [place] [address] PCP - General Internal Medicine 12/01/23 Dax De Oliveira MD [address] [facility] [place] [address] Referring Physician Ophthalmology 09/20/23 Jazmin Mauro MD [address] [place] [address] Referring Physician Urology 09/20/23 Scott Sellesr MD [address] [phone] Referring Physician Vascular Surgery 09/20/23 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 Relationship Specialty Start Date End Date Sharmaine Wong DO [address] [place] [address] PCP - ACO Reach 03/16/23 Sharmaine Wong DO [address] [facility] [address] [place] [address] PCP - General Internal Medicine 12/01/23 Dax De Oliveira MD [address] [place] [address] Referring Physician Ophthalmology 09/20/23 Jazmin Mauro MD [address] [place] [address] Referring Physician Urology 09/20/23 Scott Sellers MD [address] [address] Referring Physician Vascular Surgery 09/20/23 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 Relationship Specialty Start Date End Date Sharmaine Wong DO [address] [facility] [address] [place] [address] PCP - ACO Reach 03/16/23 Sharmaine Wong DO [address] [place] [address] PCP - General Internal Medicine 12/01/23 Dax De Oliveira MD [address] [place] [address] Referring Physician Ophthalmology 09/20/23 Jazmin Mauro MD [address] [facility] [place] [address] Referring Physician Urology 09/20/23 Scott Sellers MD 703 [facility] [address] [place] [phone] Referring Physician Vascular Surgery 09/20/23 Team Status: [...] November 08, 2024 End: November 08, 2024 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 Relationship Specialty Start Date End Date Sharmaine Wong DO [address] [place] [address] PCP - ACO Reach 03/16/23 Sharmaine Wong DO [address] [place] [address] PCP - General Internal Medicine 12/01/23 Dax De Oliveira MD [address] [place] [address] Referring Physician Ophthalmology 09/20/23 Jazmin Mauro MD [address] [place] [address] Referring Physician Urology 09/20/23 Scott Sellers MD [address] [place] [phone] Referring Physician Vascular Surgery 09/20/23 Team Status: Inactive Member Role Status Dates Sharmaine Wong DO Primary Care Pr ovider, Attending Provider Active Start: December 25, 2024 End: December 25, 2024 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 Relationship Specialty Start Date End Date [facility]armaine Wong DO [address] [facility] [address] [place] [address] PCP - ACO Reach 03/16/23 Sharmaine Wong DO [address] [facility] [address] [place] [address] PCP - General Internal Medicine 12/01/23 Dax De Oliveira MD [address] [place] [address] Referring Physician Ophthalmology 09/20/23 Jazmin Mauro MD [address] [place] [address] Referring Physician Urology 09/20/23 Scott Sellers MD [address] [place] [address] [address] [place] [phone] Referring Physician Vascular Surgery 09/20/23 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 Relationship Specialty Start Date End Date Sharmaine Wong DO [address] [place] [address] PCP - ACO Reach 03/16/23 Sharmaine Wong DO [address] [place] [address] PCP - General Internal Medicine 12/01/23 Dax De Oliveira MD [address] [place] [address] Referring Physician Ophthalmology 09/20/23 Jazmin Mauro MD [address] [place] [address] Referring Physician Urology 09/20/23 Scott Sellers MD [address] [place] [address] Referring Physician Vascular Surgery 09/20/23 Team Status: Inactive Member Role Status Dates Sharmaine Wong DO Primary Care Provider Active Start: April 15, 2025 End: April 15, 2025 Carissa Dias NP-C Attending Provider Active Start: April 15, 2025 End: April 15, 2025 Team Status: Inactive Member Role Status Emely Wong DO Primary Care Provider Active Start: [...] BE BASED ON THE PRIMARY CLINICAL RECORDS. [facility] [employer] [facility]. provides no warranty or guarantee of the accuracy or completeness of information in this document.
--- NOTE | 2025-06-12 09:53 | PM.CN ---
Consult Note: HPI Data of Consult Patient: known to practice within the last 3 years Consult date: 06/12/25 Requesting Physician: Brittany Hughes NP Primary Care Provider: KALIE SANCHES Consult Narrative Reason for consult: low back pain Narrative: Gwen Alfaro a pleasant 75 year old female presents for evaluation and management of chronic low back pain, historically has failed to benefit from > 6 weeks of PT/HEP, heat, ice, tylenol, NSAIDS. Pain today 0/10 noting >50% improvement status post left L4-5 L5-S1 TFESI on 06/02/25. patient utilizing motrin prn, mobic prn, and has been out of baclofen. denies fall/injury since last visit. pain increasing to 5/10 in left SIJ per pt. cc:: CC: Brittany Hughes NP [facility] Medical History Internal carotid artery stent present ?Z95.828 - Presence of other vascular implants and grafts (ICD-10) Acid reflux ?K21.9 - Gastro-esophageal reflux disease without esophagitis (ICD-10) HTN (hypertension) ?I10 - Essential (primary) hypertension (ICD-10) Meds Home Medications and Allergies Home Medications ?Medication ?Instructions ?Recorded ?Confirmed ?Type amlodipine 5 mg tablet 5 mg PO DAILY 07/23/24 06/02/25 History aspirin 81 mg tablet,delayed 81 mg PO DAILY 07/23/24 06/02/25 History release atorvastatin 80 mg tablet 80 mg PO DAILY 07/23/24 09/10/24 History baclofen 10 mg tablet 10 mg PO DAILY 07/23/24 06/02/25 History escitalopram oxalate 10 mg tablet 10 mg PO DAILY 07/23/24 06/02/25 History estradiol 0.01% (0.1 mg/gram) 1 g vaginal DAILY 07/23/24 06/02/25 History vaginal cream metoprolol succinate 100 mg 100 mg PO DAILY 07/23/24 06/02/25 History capsule sprinkle, ext. release 24 hr sodium citrate-citric acid 490 5 ml PO DAILY 07/23/24 06/02/25 History mg-640 mg/5 mL oral solution (Oracit) meloxicam 15 mg tablet mg 06/02/25 History Allergies Allergy/AdvReac Type Severity Reaction Status Date / Time No Known Drug Allergies Allergy Verified 06/02/25 12:21 Exam Constitutional Documenting provider has reviewed patient's vital signs: yes Common normals: no apparent distress, oriented x3, healthy appearing, alert and well nourished General appearance: cooperative HENMT Common normals: normocephalic, hearing grossly normal bilaterally and moist oral mucous membranes Head and scalp: normocephalic Eye Common normals: PERRL Pupil: PERRL Neck & C-Spine Common normals: full ROM General: normal visual inspection Chest Common normals: inspection of chest normal Respiratory Common normals: normal respiratory effort, no retractions and no use of accessory muscles Back & Pelvis Lumbar spine/lower back: ROM limited, pain with ROM and lumbar spinal tenderness Sacroiliac joints: SI joint(s) abnormal Other: left sij positive araceli(patricks), gaenslens, thigh thrust, compression test sensation intact BLE strength 5/5 in BLE Neuro Common normals: oriented x3 Sensorium/orientation: alert Psych Common normals: mental status grossly normal, thought process normal, cooperative, affect normal, speech normal and activity/motor behavior normal Speech: normal speech Thought process: normal thought process Results Additional Findings Additional findings: If on a controlled substance or opioids, I have checked an [place]AR[place] report on this patient and there are no aberrancies noted in the prescribing history.??If on a controlled substance or opioid a drug screen was completed and reviewed within the last year, and if there has not been a drug screen completed we ordered one today to monitor higher risk, state monitored pain medication use. As part of providing excellent, safe, comprehensive care, the following was completed at our patient's visit: 1. A medication reconciliation and review to ensure accurate knowledge of current/active medications, including asking our patients to inform us about any obpp-ree-vkbvrhy medications or herbal remedies/nutritional supplements/alternative remedies. 2. A review to specifically ensure our patients have had annual screening for screening for depression, screening for tobacco use, and screening for unhealthy alcohol use. For concerning screenings had a discussion with the patient, provided patient education, and recommended follow-up with primary care provider when appropriate. If patient noted with a risk of falling, they received education on strength, gait, and balance training to prevent future risk of falling. Portions of this note may have been carried over from the previous visit and updated as appropriate. Please note this office utilizes paper charting in addition to the electronic medical record. A list of current medications, vitals, and PMH is available there as the clinical staff outside of myself do not have access to [employer] charting during the clinic day operations. As part of providing quality comprehensive care the current medications, vitals, and PMH were reviewed in the paper chart. Assessment and Plan Assessment and Plan (1) Lumbar stenosis with neurogenic claudication: Assessment and Plan: 06/02/25 Left L4-5, L5-S1 transforaminal epidural steroid injection >50% improvement (2) Sacroiliitis: Assessment and Plan: The patient has had over 3 months of moderate to severe low back and left SIJ pain with functional impairment and inadequate response to conservative care including NSAIDS (unless there are contraindication such as concurrent blood thinners), multiple oral or topical pain medications, and home exercise program/physical therapy.? Patient has completed >6 weeks of guided home exercise program and/or formal physical therapy program without relief of their symptoms.? I have reviewed the imaging of the lumbar spine and no red flags were identified.? The imaging reveals radiographic findings consistent with lumbar ddd, lumbar stenosis, lumbar spondylosis The Oswestry Disability Index was completed, and the patient scored a 24%.? The patient noted the following:?? moderate to severe pain impacting ADLs, sitting, standing, sleeping, social life, travel We discussed the risks and benefits of the procedure with the patient, and we are NOT planning on using sedation as outlined in the guidelines from Medicare unless there is a documented reason that sedation would be strongly recommended.?? ?The procedure will be completed with fluoroscopic guidance.? (3) Lumbar spondylosis: Plan proceed with left SIJ refill baclofen 10mg BID PRN pain/spasms continue HEP as tolerated f/u after injection
== END 2025-06-12 09:30 | disposition home or self-care (01) ==
LOC: PM 09:30
PROVIDERS: PCP Internal Medicine; Visit Provider Nurse Practitioner
DX: M48.062 Spinal stenosis, lumbar region with neurogenic claudication (principal); M46.1 Sacroiliitis, not elsewhere classified; M47.816 Spondylosis without myelopathy or radiculopathy, lumbar region
CPT/HCPCS: G0463

== ENCOUNTER 2025-06-16 11:26 | Day surgery (SDC) | payer MEDICARE, OTHER, SELFPAY ==
--- OUTSIDE RECORDS SUMMARY | 2025-06-16 11:28 | XMS_ITS | Encounter Summary ---
Author Organization [facility] Address [address] [place] [address] Care Team Providers Care Industrial Ecologist Name Role Phone Sharmaine Fletcher DO Unavailable [phone] Dax De Oliveira MD Unavailable [phone] Teddy Antonio MD Unavailable [phone] Scott Sellers MD Unavailable [phone] Sharmaine Fletcher DO Primary Care Provider Encounter Details Date Type Department Care Team (Late st Contact Info) Description 03/31/2023 Orders Only [facility] [address] [place] [address] Provider, MD Chriss [address] [place] [address] Social History Tobacco Use Types Packs/Day [...] Visit [facility] [address] [place] [address] Sharmaine Fletcher DO [address] [place] [address] documented as of this encounter Procedures Procedure [...] on filedocumented in this encounter Care Teams Industrial Ecologist Relationship Specialty Start Date End Date Sharmaine Fletcher DO [address] [facility] [address] [place] [address] PCP - ACO Reach 03/16/23 Sharmaine Fletcher DO [address] [facility] [address] [place] [address] PCP - General Internal Medicine 12/01/23 Dax De Oliveira MD [address] [place] [address] Referring Physician Ophthalmology 09/20/23 Teddy Antonio MD [address] [place] [address] Referring Physician Urology 09/20/23 Scott Sellers MD [address] [place] [address] Referring Physician Vascular Surgery 09/20/23 documented as of this encounter
--- OUTSIDE RECORDS SUMMARY | 2025-06-16 11:28 | XMS_ITS | Clinical Summary ---
Author Organization [facility] Address [address] [place] [address] Care Team Providers Care Nurse'S Companion Name Role Phone Sharmaine Fletcher DO Unavailable [phone] Dax D eOliveira MD Unavailable [phone] Teddy Antonio MD Unavailable [phone] Scott Sellers MD Unavailable [phone] Sharmiane Fletcher DO Primary Care Provider Allergies No [...] choices, regular exercise and weight management) for prison control of blood pressure. Pt is aware [...] choices, regular exercise and weight management) for prison control of blood pressure. Limit salt. Follow [...] choices, regular exercise and weight management) for prison control of blood pressure. Limit salt. Follow [...] mg daily! 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 Since [...] and compliance with any prescribed medication for alf management/control of lipids has been discussed. Since [...] and compliance with any prescribed medication for prison management/control of lipids. High cholesterol (especially LDL) [...] and compliance with any prescribed medication for prison management/control of lipids. High cholesterol (especially LDL) [...] and compliance with any prescribed medication for prison management/control of lipids. High cholesterol (especially LDL) [...] and compliance with any prescribed medication for prison management/control of lipids. High cholesterol (especially LDL) [...] modification, routine exercise and weight control for prison DM management and reduction in risk for [...] modification, routine exercise and weight control for prison DM management and reduction in risk for [...] modification, routine exercise and weight control for prison DM management and reduction in risk for [...] modification, routine exercise and weight control for prison DM management and reduction in risk for [...] modification, routine exercise and weight control for prison glucose management and reduction in risk for [...] increased. Of particular concern is that a [place] Heart Study analysis concluded that, after other [...] increased. Of particular concern is that a [place] Heart Study analysis concluded that, after other [...] Care Team Description 05/13/2025 Patient Outreach [facility] [address] [place] [address] Barb [place] RN 05/08/2025 Refill [facility] [address] [place] [address] Candy Lincoln LPN Depression with anxiety; Essential hypertension 05/01/2025 10:45 AM EDT Office Visit [facility] [address] [place] [address] Sharmaine Fletcher, Type 2 diabetes mellitus with stage 3a chronic kidney disease, without long-term current use of insulin (HCC) (Primary Dx); Stage 3a chronic kidney disease (CMS-HCC); Essential hypertension ; Hyperlipidemia LDL goal <100 ; Carotid stenosis, bilateral 05/01/2025 Travel 04/30/2025 Travel 04/28/2025 Refill [facility] [address] [place] [address] Sharmaine Fletcher, Essential hypertension ; Depression with [...] Arellano Cirrhosis Mother Melanie Arellano Diabetes Mother [place] Adan Hypertension Mother [place] Ad[place] Cirrhosis Sister Katiamaria d Ledesma Diabetes [...] Medicine [address] [place] [phone] Sharmaine Fletcher DO [address] [place] [address] Health Maintenance Due Date Last Done Comments [...] insulin (HCC) Stage 3a chronic kidney disease ([facility]-HCC) DIABETIC RETINOPATHY SCREENING - OU - BOTH [...] 0.0 - 1.8 mg/dL 12/25/2024 4:16 PM [facility] CREATININE, URINE (RANDOM) 46.00 mg/dL 12/25/2024 4:12 PM [facility] Comment:No reference range e stablished MICROALBUMIN/CR EATININE RATIO Test not performed 0.0 - 30.0 12/25/2024 4:16 PM [facility] Other Urine specimen obtained by clean catch procedure / Unknown 12/25/2024 11:35 AM EST 12/25/2024 1:36 PM EST Sharmaine Fletcher DO LAB URINE ORDERABLES Fi nal Result Performing Organization Address City/State/[facility] Co de Phone Number [facility] [address] [place] [address], [facility] [address] [place] [address] * (ABNORMAL) Diabetic Retinopathy Screening - OU [...] Recently Relevant to Health Maintenance [facility] Care Teams Nurse'S Companion Relationship Specialty Start Date End Date Sharmaine Fletcher DO [address] [place] [address] PCP - ACO Reach 03/16/23 Sharmaine Fletcher DO [address] [place] [address] PCP - General Internal Medicine 12/01/23 Dax De Oliveira MD [address] [place] [address] Referring Physician Ophthalmology 09/20/23 Teddy Antonio MD [address] [place] [address] Referring Physician Urology 09/20/23 Scott Sellers MD [address] [place] [address] Referring Physician Vascular Surgery 09/20/23
--- OUTSIDE RECORDS SUMMARY | 2025-06-16 11:28 | XMS_ITS | Encounter Summary ---
Author Organization [facility] Address [address] [facility] [place] [address] Care Team Providers Care Shirt Folding Machine Operator Name Role Phone Sharmaine Fletcher DO Unavailable [phone] Dax De Oliveira MD Unavailable [phone] Teddy Antonio MD Unavailable [phone] Scott Sellers MD Unavailable [phone] Sharmaine Fletcher DO Primary Care Provider Encounter Details Date Type Department Care Team (Late st Contact Info) Description 09/20/2023 Orders Only [facility] [address] [facility] [address] [place] [phone] A, Unknown Practice [address] [place], [place] [phone] Social History Tobacco Use Types Packs/Day Years [...] 09/02/2025 10:15 AM EST Office Visit [facility] [place] [facility] [address] [facility] [address] [place] [address] Sharmaine Fletcher DO [address] [facility] [address] [place] [address] documented as of this encounter Procedures Procedure Name Priority Date/Time Associated Diagnosis Comments DIABETES EYE EXAM Routine 10/26/2022 4:12 PM EST documented in this encounter Results * Diabetes Eye Exam (10/26/2022 4:12 PM EST) us Unknown Practice A HEALTH MAINTENANCE Final Resu lt documented in this encounter Visit Diagnoses Not on filedocumented in this encounter Care Teams Shirt Folding Machine Operator Relationship Specialty Start Date End Date Sharmaine Fletcher DO [address] [facility] [address] [place] [address] PCP - ACO Reach 03/16/23 Sharmaine Fletcher DO [address] [facility] [address] [place] [address] PCP - General Internal Medicine 12/01/23 Dax De Oliveira MD [address] [place] [address] Referring Physician Ophthalmology 09/20/23 Tedyd Antonio MD [address] [place] [address] Referring Physician Urology 09/20/23 Scott Sellers MD [address] [place] [address] Referring Physician Vascular Surgery 09/20/23 documented as of this encounter
--- OUTSIDE RECORDS SUMMARY | 2025-06-16 11:28 | XMS_ITS | Encounter Summary ---
Author Organization [facility] Address [address] [facility] [place] [address] Care Team Providers Care Copy And Print Associate Name Role Phone Sharmaine Fletcher DO Unavailable [phone] Dax De Oliveira MD Unavailable [phone] Teddy Antonio MD Unavailable [phone] Scott Sellers MD Unavailable [phone] Sharmaine Fletcher DO Primary Care Provider Encounter Details Date Type Department Care Team ([facility] Contact Info) Description 10/28/2024 Orders Only [facility] Internal Medicine [address] [facility] [address] [place] [phone] Unallocated, Noms MD Ben [address] [place], [place] [id number] Social History Tobacco Use Types Packs/Day Years [...] Visit [facility] [place] [facility] [address] [facility] [address] [place] [address] Sharmaine Fletcher DO [address] [facility] [address] [place] [address] documented as of this encounter Procedures Procedure [...] on filedocumented in this encounter Care Teams Copy And Print Associate Relationship Specialty Start Date End Date Sharmaine Fletcher DO [address] [facility] 230 [place] [address] PCP - ACO Reach 03/16/23 Sharmaine Fletcher DO [address] [facility] 230 [place] [address] PCP - General Internal Medicine 12/01/23 Dax De Oliveira MD [address] [place] [address] Referring Physician Ophthalmology 09/20/23 Teddy Antonio MD [address] [place] [address] Referring Physician Urology 09/20/23 Scott Sellers MD [address] [place] [address] Referring Physician Vascular Surgery 09/20/23 documented as of this encounter
--- OUTSIDE RECORDS SUMMARY | 2025-06-16 11:28 | XMS_ITS | Encounter Summary ---
Author Organization [facility] Address [address] [facility] [place] [address] Care Team Providers Care Backend Developer Name Role Phone Sharmaine Fletcher DO Unavailable Dax De Oliveira MD Unavailable [phone] Teddy Antonio MD Unavailable [phone] Scott Sellers MD Unavailable [phone] Sharmaine Fletcher DO Primary Care Provider Encounter Details Date Type Department Care Team (Late st Contact Info) Description 06/05/2023 Orders Only [facility] [address] [facility] [address] [place] [phone] Charito Carranza, RESEARCH SUBJECT [address] [place] [address] Social History Tobacco Use Types [...] Medicine [address] [place] [address] Sharmaine Fletcher DO [address] [place] [address] documented as of this encounter Visit Diagnoses Not on filedocumented in this encounter Care Teams Backend Developer Relationship Specialty Start Date End Date Sharmaine Fletcher DO [address] [place] [address] PCP - ACO Reach 03/16/23 Sharmaine Fletcher DO [address] [place] [address] PCP - General Internal Medicine 12/01/23 Dax De Oliveira MD [address] [place] [address] Referring Physician Ophthalmology 09/20/23 Teddy Antonio MD [address] [place] [address] Referring Physician Urology 09/20/23 Scott Sellers MD [address] [place] [address] Referring Physician Vascular Surgery 09/20/23 documented as of this encounter
--- OUTSIDE RECORDS SUMMARY | 2025-06-16 11:28 | XMS_ITS | Clinical Summary ---
Author Organization [employer] [facility] tem Address [id number] [address] [place] [address] Care Team Providers Care Pediatric Psychologist Name Role Phone DamianSharmaine Dempsey DO Primary [...] Medical Devices Not on file Insurance MEDICARE [facility] INSURANCE Care Teams Pediatric Psychologist Relationship Specialty Start Date End Date Sharmaine Fletcher DO PCP - General Internal Medicine 05/05/24
--- OUTSIDE RECORDS SUMMARY | 2025-06-16 11:28 | XMS_ITS | Encounter Summary ---
Author Organization [facility] Address [address] [facility] [place] [address] Care Team Providers Care Baked Goods Stock Clerk Name Role Phone Sharmaine Fletcher DO Unavailable [phone] Dax De Oliveira MD Unavailable [phone] Teddy Antonio MD Unavailable [phone] Scott Sellers MD Unavailable [phone] Sharmaine Fletcher DO Primary Care Provider Encounter Details Date Type Department Care Team (Late st Contact Info) Description 08/05/2024 Orders Only [facility] Internal Medicine [address] [facility] [address] [place] [phone] A, Unknown Practice [address] [place], [place] [id number] Social History Tobacco Use Types Packs/Day Years [...] [address] [place] [address] Sharmaine Fletcher DO [address] [place] [address] documented as of this encounter Procedures Procedure [...] on filedocumented in this encounter Care Teams Baked Goods Stock Clerk Relationship Specialty Start Date End Date Sharmaine Fletcher DO [address] [place] [address] PCP - ACO Reach 03/16/23 Sharmaine Fletcher DO [address] [place] [address] PCP - General Internal Medicine 12/01/23 Dax De Oliveira MD [address] [facility] [place] [address] Referring Physician Ophthalmology 09/20/23 Teddy Antonio MD [address] [place] [address] Referring Physician Urology 09/20/23 Scott Sellers MD [address] [place] [address] Referring Physician Vascular Surgery 09/20/23 documented as of this encounter
--- OUTSIDE RECORDS SUMMARY | 2025-06-16 11:28 | XMS_ITS | Encounter Summary ---
Author Organization [facility] Address [address] [facility] [place] [address] Care Team Providers Care Accountant Systems Name Role Phone Sharmaine Fletcher DO Unavailable [phone] Dax De Oliveira MD Unavailable [phone] Teddy Atnonio MD Unavailable [phone] Scott Sellers MD Unavailable [phone] Sharmaine Fletcher DO Primary Care Provider Encounter Details Date Type Department Care Team (Late st Contact Info) Description 07/24/2024 Orders Only [facility] Internal Medicine [address] [facility] [address] [place] [phone] A, Unknown Practice [address] [place], [place] [address] Social History Tobacco Use Types Packs/Day Years [...] Visit [facility] [place] [facility] [address] [facility] [address] [place] [address] Sharmaine Fletcher DO [address] [facility] [address] [place] [address] documented as of this encounter Procedures Procedure [...] on filedocumented in this encounter Care Teams Accountant Systems Relationship Specialty Start Date End Date Sharmaine Fletcher DO [address] [facility] [address] [place] [address] PCP - ACO Reach 03/16/23 Sharmaine Fletcher DO [address] [facility] [address] [place] [address] PCP - General Internal Medicine 12/01/23 Dax De Oliveira MD [address] [place] [address] Referring Physician Ophthalmology 09/20/23 Teddy Antonio MD [address] [place] [address] Referring Physician Urology 09/20/23 Scott Sellers MD [address] [place] [address] Referring Physician Vascular Surgery 09/20/23 documented as of this encounter
--- OUTSIDE RECORDS SUMMARY | 2025-06-16 11:28 | XMS_ITS | Encounter Summary ---
Author Organization [facility] Address [address] [place] [address] Care Team Providers Care Dyer And Washer Name Role Phone Sharmaine Fletcher DO Unavailable [phone] Dax De Oliveira MD Unavailable [phone] Teddy Antonio MD Unavailable [phone] Scott Sellers MD Unavailable [phone] Sharmaine Fletcher DO Primary Care Provider Encounter Details Date Type Department Care Team (Late st Contact Info) Description 03/29/2023 Orders Only [facility] [address] [place] [address] Provider, MD Chriss [address] [place] [address] Social History Tobacco Use Types Packs/Day [...] [facility] [address] [place] [address] Sharmaine Fletcher DO [address] [place] [address] documented as of this encounter Procedures Procedure Name Priority Date/Time Associated Diagnosis Comments SCANNED LABS Routine 03/28/2023 10:05 AM EDT documented in this encounter Results * SCANNED LABS (03/28/2023 10:05 AM EDT) us Historical Provider LAB CHG PERFORMABLES Edit ed Result - Final documented in this encounter Visit Diagnoses Not on filedocumented in this encounter Care Teams Dyer And Washer Relationship Specialty Start Date End Date Sharmaine Fletcher DO [address] [facility] [address] [facility] 230 [place] [address] PCP - ACO Reach 03/16/23 Sharmaine Fletcher DO [address] [facility] [address] [place] [address] PCP - General Internal Medicine 12/01/23 Dax De Oliveira MD [address] [place] [address] Referring Physician Ophthalmology 09/20/23 Teddy Antonio MD [address] [place] [address] Referring Physician Urology 09/20/23 Scott Sellers MD [address] [place] [address] Referring Physician Vascular Surgery 09/20/23 documented as of this encounter
--- OUTSIDE RECORDS SUMMARY | 2025-06-16 11:28 | XMS_ITS | Encounter Summary ---
Author Organization [facility] Address [address] [facility] [place] [address] Care Team Providers Care Impregnator And Drier Helper Name Role Phone Sharmaine Fletcher DO Unavailable [phone] Dax De Oliveira MD Unavailable [phone] Teddy Antonio MD Unavailable [phone] Scott Sellers MD Unavailable [phone] Sharmaine Fletcher DO Primary Care Provider Encounter Details Date Type Department Care Team (Late st Contact Info) Description 11/08/2024 External Result Encounter [facility] External Department Unsolicited Ambrosio Corral, DPM [address] [address] Social History Tobacco Use Types Packs/Day Years [...] Medicine [address] [place] [address] Sharmaine Fletcher, DO [address] [place] [address] documented as of this encounter Procedures Procedure Name Priority Date/Time Associated Diagnosis Comments ECG 12-LEAD 11/08/2024 2:18 PM EST documented in this encounter Results * ECG 12 lead (11/08/2024 2:18 PM EST) 11/08/2024 2:18 PM EST Narrative [facility] 11/09/2024 12:51 PM EST [facility] Main [address] [address] Electrocardiograph Report Signed Patient: Gwen Alfaro MR#: [id number] : 1950 Acct:[id number] Age/Sex: 74 / F ADM Date: 11/08/24 Loc: Room: Type: [facility] Attending Dr: Ambrosio Corral [...] Procedure Note Lurdes Mccracken MD - 11/09/2024 [facility] Main [address] [address] Electrocardiograph Report Signed Patient: Gwen Alfaro CMR#: [id number] : 2Acct:[id number] Age/Sex: 74 / FADM Date: 11/08/24 Loc: Room:Type: [facility] Attending Dr: Ambrosio Corral [...] evident in Anterior leads Confirmed by SIMRAN URIBNA [facility], LURDES ([id number]) on 11/09/2024 12:50:45 PM Referred By: Electronically Signed By: LURDES MCCRACKEN MD [facility] Transcribed By: MUS Signed By Lurdes Mccracken MD, FACC 11/09/24 1250 us Ambrosio Corral DPM ECG ORDERABLES Final Resul t [address] [address], documented in this encounter Visit Diagnoses Not on filedocumented in this encounter Care Teams Impregnator And Drier Helper Relationship Specialty Start Date End Date Sharmaine Fletcher DO [address] [place] [address] PCP - ACO Reach 03/16/23 Sharmaine Fletcher DO [address] [place] [address] PCP - General Internal Medicine 12/01/23 Dax De Oliveira MD [address] [place] [address] Referring Physician Ophthalmology 09/20/23 Teddy Antonio MD [address] [place] [address] Referring Physician Urology 09/20/23 Scott Sellers MD [address] [place] [address] Referring Physician Vascular Surgery 09/20/23 documented as of this encounter
--- OUTSIDE RECORDS SUMMARY | 2025-06-16 11:28 | XMS_ITS | Encounter Summary ---
Author Organization [facility] Address [address] [facility] [place] [address] Care Team Providers Care Public Accountant Name Role Phone Sharmaine Fletcher DO Unavailable Dax De Oliveira MD Unavailable Teddy Antonio MD Unavailable Scott Sellers MD Unavailable [phone] Sharmaine Fletcher DO Primary Care Provider Encounter Details Date Type Department Care Team (Late st Contact Info) Description 08/28/2024 Orders Only [facility] Internal Medicine [address] [facility] [address] [place] [phone] A, Unknown Practice [address] [place], [place] [address] Social History Tobacco Use Types Packs/Day Years [...] Visit [facility] [place] [facility] [address] [facility] 230 [place] [address] Sharmaine Fletcher DO [address] [facility] [address] [place] [address] documented as of this encounter Procedures Procedure [...] on filedocumented in this encounter Care Teams Public Accountant Relationship Specialty Start Date End Date Sharmaine Fletcher DO [address] [facility] [address] [place] [address] PCP - ACO Reach 03/16/23 Sharmaine Fletcher DO [address] [facility] [address] [place] [address] PCP - General Internal Medicine 12/01/23 Dax De Oliveira MD [address] [place] [address] Referring Physician Ophthalmology 09/20/23 Teddy Antonio MD [address] [place] [address] Referring Physician Urology 09/20/23 Scott Sellers MD [address] [place] [address] Referring Physician Vascular Surgery 09/20/23 documented as of this encounter
--- OUTSIDE RECORDS SUMMARY | 2025-06-16 11:28 | XMS_ITS | Encounter Summary ---
Author Organization [facility] Address [address] [facility] [place] [address] Care Team Providers Care Arabic Linguist Name Role Phone Sharmaine Fletcher DO Unavailable [phone] Dax De Oliveira MD Unavailable [phone] Teddy Antonio MD Unavailable [phone] Scott Sellers MD Unavailable [phone] Sharmaine Fletcher DO Primary Care Provider Encounter Details Date Type Department Care Team (Late st Contact Info) Description 05/08/2024 Orders Only [facility] Internal [facility] [address] [facility] [address] [place] [phone] A, Unknown Practice [address] [place], [place] [address] Social History Tobacco Use Types Packs/Day Years [...] [address] [place] [address] Sharmaine Fletcher DO [address] [place] [address] documented as of this encounter Procedures Procedure [...] on filedocumented in this encounter Care Teams Arabic Linguist Relationship Specialty Start Date End Date Sharmaine Fletcher DO [address] [place] [address] PCP - ACO Reach 03/16/23 Sharmaine Fletcher DO [address] [place] [address] PCP - General Internal Medicine 12/01/23 Dax De Oliveira MD [address] [facility] [place] [address] Referring Physician Ophthalmology 09/20/23 Teddy Antonio MD [address] [place] [address] Referring Physician Urology 09/20/23 Scott Sellers MD [address] [place] [address] Referring Physician Vascular Surgery 09/20/23 documented as of this encounter
--- OUTSIDE RECORDS SUMMARY | 2025-06-16 11:28 | XMS_ITS ---
Author Organization [facility] Address [address] [facility] [place] [address] Care Team Providers Care Cascara Bark Cutter Name Role Phone Sharmaine Fletcher DO Unavailable [phone] Dax De Oliveira MD Unavailable [phone] Teddy Antonio MD Unavailable [phone] Scott Sellers MD Unavailable [phone] Sharmaine Fletcher DO Primary Care Provider Chronic Care Management (CCM) Status:Enrolled (Active) Start date:03/09/2023 Enrollment date:03/09/2023 Overview 12/19/23, 2:41 PM - Isabelle Ferrara MA- Patient gives verbal consent to be enrolled in CCM Program and understands there could be a bill for this service. Case Team Name Relationship Phone Isabelle Ferrara MA(Responsible Staff) Clinical Ad vocate [phone] Continued Care and Services Coordination
[2025-06-16 11:38] VITALS: BP 126/75; PULSE 76; TEMP 36.2; O2SAT 96
[2025-06-16 12:04] VITALS: BP 166/74; PULSE 66; O2SAT 95
[2025-06-16 12:06] VITALS: BP 148/63; PULSE 62; O2SAT 95
[2025-06-16] MEDS: IOHEXOL 240 MG/ML - 10 ML VIAL 24 MG INJ (12:07)
[2025-06-16] MEDS: BUPIVACAINE HCL 0.25% PF 25 MG/10 ML VIAL 2 ML INJ (12:07)
[2025-06-16] MEDS: LIDOCAINE HCL 2% 400 MG/20 ML MDV INJ (12:07)
[2025-06-16] MEDS: METHYLPREDNISOLONE ACETATE 40 MG/ML VIAL INJ (12:08)
--- NOTE | 2025-06-16 12:08 | W.PM.PROCNOT ---
Date of procedure: 06/16/25 Pre-op diagnosis: Pain due to left sacroiliitis Post-op diagnosis: same as pre-op Procedure: Procedure: Left sacroiliac joint injection Medications: Bupivacaine 0.25% 3cc, depomedrol 40mg After informed consent was obtained, the patient was brought to the medical procedure unit and placed in the prone position, when a timeout was completed verifying correct patient, procedure, site, positioning, implant, and/or special equipment.? The skin overlying the area was prepped and draped in standard sterile fashion using alcohol.? A 25-gauge needle was inserted towards the left sacroiliac joint under direct fluoroscopic imaging.? Needle tip was advanced until the joint was encountered.? We instilled a total of 2 mL of solution.? Postoperatively needles were removed.? The patient tolerated the procedure well without complication.? The patient reported reduction in pain symptoms postoperatively. Anesthesia: Local Surgeon: Kerry Stallworth Pathology: none sent Condition: stable Disposition: no change
== END 2025-06-16 12:10 | disposition home or self-care (01) ==
LOC: SURGOUT 11:26
PROVIDERS: PCP Internal Medicine; Visit Provider Anesthesiology
DX: M46.1 Sacroiliitis, not elsewhere classified (principal)
CPT/HCPCS: 27096; J0665; J1010; Q9966